=== PATIENT | male | born 1935 | race Caucasian/White ===

== ENCOUNTER 2019-09-11 19:45 | Inpatient (IN) ==
[2019-09-11 20:26] LABS: Basophils # (auto) 0.03 K/uL (0-0.2); Basophils % (auto) 0.1 %; Eosinophils # (auto) 0.14 K/uL (0-0.5); Eosinophils % (auto) 0.6 %; Hematocrit (blood only) 42.7 % (42-52); Hemoglobin 13.9 g/dL (14.0-18.0); Immature Granulocytes # (auto) 0.05 K/uL (0.00-0.02); Immature Granulocytes % (auto) 0.2 %; Lymphocytes # (auto) 2.16 K/uL (1.2-3.4); Lymphocytes % (auto) 9.7 %; Mean Corpuscular Hemoglobin 28.7 pg (25-34); Mean Corpuscular Hgb Conc 32.6 g/dL (32-36); Mean Corpuscular Volume 88.2 fL (80-100); Mean Platelet Volume 9.8 fL (7.4-10.4); Monocytes % (auto) 5.9 %; Neutrophils % (auto) 83.5 %; Platelet Count 239 K/uL (130-400); RDW Coefficient of Variation 14.5 % (11.5-14.5); RDW Standard Deviation 46.7 fL (36.4-46.3); Red Blood Count 4.84 M/uL (4.7-6.1); White Blood Count 22.18 K/uL (4.8-10.8)
[2019-09-11 20:43] LABS: Albumin Level 3.3 gm/dl (3.4-5.0); Calcium 8.8 mg/dl (8.5-10.1); Creatinine Clr Calc Pharmacy 55.6 ml/min; Est GFR (African American) 76.6; Est GFR (Non-African American) 66.1; Magnesium 1.9 mg/dl (1.8-2.4); Potassium 4.2 mmol/L (3.5-5.1)
[2019-09-11 20:44] LABS: iSTAT Hemoglobin 14.6 g/dl (14.0-18.0); iSTAT Ionized Calcium 1.16 mmol/l (1.12-1.32); iSTAT Potassium 4.2 mmol/L (3.3-5.0)
[2019-09-11 20:47] LABS: INR 1.2 (0.9-1.1); Partial Thromboplastin Ratio 1.2; Partial Thromboplastin Time 34.3 Seconds (21.0-31.0); Prothrombin Time 12.9 Seconds (9.0-12.0)
[2019-09-11] MEDS ORDERED: OPTIRAY 320 125ml IV PRN (20:51)
[2019-09-11 20:52] LABS: Bilirubin,Total 1.1 mg/dl (0.2-1); Globulin 3.2 gm/dl (2.5-4.0); Total Protein 6.5 gm/dl (6.4-8.2); Troponin I 0.068 ng/ml (0-0.045)
--- NOTE | 2019-09-11 20:54 | CT Scan Report ---
CT head/brain wo con CLINICAL HISTORY: 83 years-old Male with Stroke evaluation . Acute strokelike symptoms TECHNIQUE: Multiple axial CT images of the head were obtained without contrast. A dose lowering tech nique was utilized adhering to the principles of ALARA. CT DOSE: 1180.98 mGy.cm COMPARISON: CTA head neck of same day FINDINGS: No acute intracranial hemorrhage, midline shift, intracranial mass, hydrocephalus, territorial ischem ia or abnormal extra-axial collection. Age-related involutional changes with mild ex vacuo ventriculo megaly. Extensive white matter hypodensities suggest chronic microvascular ischemic disease. Hypodens ities of the left lentiform nucleus, thalamus and cerebral peduncle are suggestive of remote infarct. The calvarium is intact. Severe near complete opacification of the ethmoid sinuses. Trace mastoid ef fusions. Soft tissues are unremarkable. Prior bilateral cataract repair. IMPRESSION: 1. No acute intracranial hemorrhage or territorial infarct. 2. Age-related involutional changes with extensive chronic microvascular ischemic disease. 3. Hypodensities of the left lentiform nucleus, thalamus and cerebral peduncle are suggestive of soha te infarcts with wallerian degeneration. ACT 112: Negative or not required by law. The above report was generated using voice recognition software. It may contain grammatical, syntax o r spelling errors. Electronically signed by: Gera Naqvi M.D. 09/11/2019 8:53 PM
--- NOTE | 2019-09-11 21:09 | CT Scan Report ---
CT angio neck with con, CT angio head w con CLINICAL HISTORY: 83 years-old Male with Stroke evaluation. Acute strokelike symptoms COMPARISON STUDY: CT of the head of same day TECHNIQUE: Following the IV administration of 115 mL of Optiray 320, CT angiogram of the head and nec k was performed from the aortic arch to the skull apex. Images are reviewed in the axial, sagittal, a nd coronal planes. 3-D MIPS images are created and assessed. IV contrast was administered without com plication. All measurements were calculated based on NASCET criteria. A dose lowering technique was utilized adhering to the principles of ALARA. FINDINGS: Moderate mixed plaque of the thoracic aortic arch. Patency of the imaged bilateral subclavian arterie s. The study is mildly limited secondary to contrast bolus timing and also secondary to patient motio n. Moderate mixed plaque of the common carotid arteries without high-grade stenosis. Severe mixed melody que of the bilateral carotid bulbs and proximal internal carotid arteries results in less than 50% st enosis bilaterally. Calcified plaque of the cavernous and supraclinoid segments is also present witho ut high-grade stenosis. The petrous segments are not well opacified and are therefore difficult to ev aluate. The bilateral middle and anterior cerebral arteries appear patent with mostly mild multifocal luminal narrowing. The anterior cerebral arteries are also patent. Moderate luminal narrowing of the proximal right A1 segment. Dominant right vertebral artery. The left vertebral artery appears to terminate into the left PICA. V ertebral and basilar arteries are patent. Multifocal moderate grade luminal narrowing is noted throug hout the right posterior cerebral artery. Mild multifocal luminal narrowing of the left posterior cer ebral artery. Cerebral venous sinuses are patent. There is no aneurysm, dissection or proximal branch occlusion. No abnormal intracranial enhancement. Involutional changes with chronic microvascular isc hemic disease. Hypodensities of the left lentiform nucleus, thalamus and cerebral peduncle are sugges tive of remote infarct. Severe paranasal sinus disease. No pneumothorax. Soft tissues are unremarkable. Multilevel degenerati ve changes of the spine. IMPRESSION: 1. No aneurysm, dissection, high-grade stenosis or proximal branch occlusion. 2. Severe mixed plaque of the carotid bulbs and proximal internal carotid arteries results in less th an 50% stenosis bilaterally. 3. Multifocal mild and moderate luminal narrowing of the intracranial arteries as detailed above. ACT 112: Negative or not required by law. The above report was generated using voice recognition software. It may contain grammatical, syntax o r spelling errors. Electronically signed by: Gera Naqvi M.D. 09/11/2019 9:07 PM
[2019-09-11] MEDS ORDERED: PIPERACILLIN/TAZOBACTAM 4.5 GM/120 ML BAG IV ONE (21:29)
[2019-09-11] MEDS ORDERED: PIPERACILL/TAZOBAC CONSULT ACTIVE PRN (21:29)
--- NOTE | 2019-09-11 21:42 | XRay Report ---
XR chest 1V portable HISTORY: 83 years-old Male AMS acutely altered mental status COMPARISON: KUB 08/04/2019 TECHNIQUE: Portable AP view of the chest FINDINGS: Cardiomediastinal and hilar silhouettes are within normal limits. Ill-defined right infrahilar opacit ies. No pneumothorax, pleural effusion or overt pulmonary edema. Degenerative changes of the shoulders and spine. Left shoulder rotator cuff calcific tendinosis. IMPRESSION: Ill-defined right infrahilar opacities suggest atelectasis, pneumonia or aspiration pneum onitis. ACT 112: Negative or not required by law. The above report was generated using voice recognition software. It may contain grammatical, syntax o r spelling errors. Electronically signed by: Gera Naqvi M.D. 09/11/2019 9:40 PM
[2019-09-11 22:29] LABS: Appearance Urine Clear (Clear); Bacteria Urine Automated 2+ (Negative); Bilirubin Urine Negative (Negative); Blood Urine Negative (Negative); Color Urine Yellow; Epithelial Cell Urine Auto 0-5 /lpf (0-5); Glucose Urine UA Negative (Negative); Ketones Urine Negative (Negative); Leukocyte Esterase Urine 1+ (Negative); Nitrite Urine Negative (Negative); Protein Urine Negative (Negative); RBC Urine Automated 0-4 /hpf (0-4); Specific Gravity Urine 1.036 (1.000-1.030); Urobilinogen Urine Negative (Negative)
--- NOTE | 2019-09-11 23:07 | History & Physical Report ---
Date of Service September 11, 2019 Assessment & Plan (1) Sepsis: Secondary to complicated UTI History prostate surgery as per records Troponin elevation secondary to sepsis hx CVA hypertension, stable hyperlipidemia on statin Rx DM 2 insulin requiring, well-controlled as of recent hemoglobin A1c of 7.21 June 2019 ongoing NOAC use related to stroke (? PAF, embolic CVA) Medical telemetry Cultures, Cefepime Follow troponin, TTE if with progression Basal insulin, ISS BG goal [id number], carb count coverage DVT prophylaxis. Adelita (clarify indication with patient family) Full code Attempted to contact patient's daughter (Ms. Shala Calvo, [phone]) over the phone to obtain additional history and to update her of plan of care. No answer. Left message for call back. Text document was generated using [employer] voice recognition software. It may contain grammatical or spelling errors. Kindly contact undersigned for clarification of any documentation item in question. History of Present Illness Chief Complaint: Dizziness Primary Care Provider: Tamie Leung History obtained from patient and records. Medical history significant for CVA, hypertension, hyperlipidemia, DM 2 insulin requiring, ongoing NOAC use. Recent confinement March 2019 at [facility] in [place] for acute CVA. PEG tube placed during confinement due to aspiration risk following stroke. Patient discharged to [facility] for rehab on [facility] for stroke protection as per patient. Unaware of heartbeat issues. Patient able to tolerate pured diet the last 2 months. PEG tube not being used the last 2 months as per patient. Patient discharged home from [facility] last month. Today patient experienced dizziness described as lightheadedness. [place] like he was going to pass out. No chest pain, no S OB. No unusual cough/flulike symptoms. No abdominal pain/dysuria symptoms. At the ER, patient received Zosyn for sepsis. 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 Allergies Allergy/AdvReac Type Severity Reaction Status Date / Time No Known Allergies Allergy Verified 09/11/19 21:42 Home Medications Home Medications Medication Instructions Recorded Confirmed Type atorvastatin 10 mg tablet 0 mg PO QAM 05/30/19 09/11/19 History insulin aspart U-100 100 unit/mL See Rx Instructions .ROUTE .COMPLEX 05/30/19 09/11/19 History subcutaneous cartridge insulin glargine 100 unit/mL (3 25 units SQ DAILY 05/30/19 09/11/19 History mL) subcutaneous pen cholecalciferol (vitamin D3) 1,000 unit PO QPM 08/04/19 09/11/19 History [Vitamin D3] metoprolol tartrate 12.5 mg PO BID 08/04/19 09/11/19 History rivaroxaban 0 mg PO QPM 08/04/19 09/11/19 History docusate sodium [Colace] 100 mg PO DAILY 09/11/19 09/11/19 History senna 8.6 mg PO QAM 09/11/19 09/11/19 History Past Med/Surg History Surgical History History of gastric restrictive surgery History of prostate surgery Status post insertion of percutaneous endoscopic gastrostomy (PEG) tube Family History Other No family history of bleeding disorder Social History Preferred Language: Serbian Beliefs That Will Affect Care: None Current Living Situation: Alone Current Living Situation Comment: in an apartment current occupational status: retired Feels Safe at Home: Yes Safety Concerns: Feels Safe At This Time Smoking Status: Never smoker Hx Alcohol Use: No Hx Substance Use: No Review of Systems Review of Systems: As per HPI, all 10 systems reviewed, all other ROS negative Physical Exam Physical Exam: GENERAL: Slightly uncomfortable/impatient, dysarthric (chronic), hyponasal voice, no respiratory distress SKIN: Normal color, warm HEENT: [place] palpebral conjunctivae, no ptosis, dry buccal mucosa NECK : Supple, no tenderness CHEST : CTA, no tenderness HEART : RRR, no obvious murmurs ABDOMEN: Some distention, PEG tube in place with dried dark residue, nontender EXTREMITIES : No LE swelling/tenderness, no other conspicuous deformities noted NEUROLOGIC : Coherent, dysarthric (chronic), no facial asymmetry, gait and stance not assessed Results & Data Results & Data ([facility]) Vital Signs (Past 12 Hours) Vital Signs Temp Pulse Pulse Resp BP BP Pulse Ox 09/11/19 21:43 84 18 139/67 95 09/11/19 19:43 36.9 C 106 H 18 108/85 95 Laboratory Results Laboratory Results WBC 22.18 K/uL (4.8-10.8) H 09/11/19 20:16 RBC 4.84 M/uL (4.7-6.1) 09/11/19 20:16 Hgb 13.9 g/dL (14.0-18.0) L 09/11/19 20:16 POC Hgb 14.6 g/dl (14.0-18.0) 09/11/19 20:29 Hct 42.7 % (42-52) 09/11/19 20:16 POC Hct 43 % (42-52) 09/11/19 20:29 MCV 88.2 fL (80-100) 09/11/19 20:16 MCH 28.7 pg (25-34) 09/11/19 20:16 MCHC 32.6 g/dL (32-36) 09/11/19 20:16 RDW Std Deviation 46.7 fL (36.4-46.3) H 09/11/19 20:16 RDW Coeff of Mainor 14.5 % (11.5-14.5) 09/11/19 20:16 Plt Count 239 K/uL (130-400) 09/11/19 20:16 MPV 9.8 fL (7.4-10.4) 09/11/19 20:16 Immature Gran % (Auto) 0.2 % 09/11/19 20:16 Neut % (Auto) 83.5 % 09/11/19 20:16 Lymph % (Auto) 9.7 % 09/11/19 20:16 [place] % (Auto) 5.9 % 09/11/19 20:16 Eos % (Auto) 0.6 % 09/11/19 20:16 Baso % (Auto) 0.1 % 09/11/19 20:16 Immature Gran # (Auto) 0.05 K/uL (0.00-0.02) H 09/11/19 20:16 Neut # (Auto) 18.50 K/uL (1.4-6.5) H 09/11/19 20:16 Lymph # (Auto) 2.16 K/uL (1.2-3.4) 09/11/19 20:16 [place] # (Auto) 1.30 K/uL (0.11-0.59) H 09/11/19 20:16 Eos # (Auto) 0.14 K/uL (0-0.5) 09/11/19 20: Baso # (Auto) 0.03 K/uL (0-0.2) 09/11/19 20:16 PT 12.9 Seconds (9.0-12.0) H 09/11/19 20: INR 1.2 (0.9-1.1) H 09/11/19 20:16 APTT 34.3 Seconds (21.0-31.0) H 09/11/19 20: PTT Ratio 1.2 09/11/19 20: POC Sodium 143 mmol/L (135-144) 09/11/19 20: Sodium 142 mmol/L (136-145) 09/11/19 20: POC Potassium 4.2 mmol/L (3.3-5.0) 09/11/19 20: Potassium 4.2 mmol/L (3.5-5.1) 09/11/19 20:16 POC Chloride 102 mmol/L (101-112) 09/11/19 20: Chloride 108 mmol/L (98-107) H 09/11/19 20:16 Carbon Dioxide 31 mmol/L (21-32) 09/11/19 20: POC Total CO2 28 mEq/l (24-31) 09/11/19 20: Anion Gap 3.0 (3-11) 09/11/19 20: POC Anion Gap 18.0 mmol/L (16-25) 09/11/19 20:29 POC BUN 17 mg/dl (7-18) 09/11/19 20: BUN 17 mg/dl (7-18) 09/11/19 20: Creatinine 1.04 mg/dl (0.6-1.4) 09/11/19 20: POC Creatinine 1.0 mg/dl (0.6-1.3) 09/11/19 20: Est Cr Clr Drug Dosing 55.6 ml/min 09/11/19 20: Est GFR ( Amer) 76.6 09/11/19 20:16 Est GFR (Non-Af Amer) 66.1 09/11/19 20:16 BUN/Creatinine Ratio 16.0 (10-20) 09/11/19 20:16 Glucose 193 mg/dl (70-99) H 09/11/19 20:16 POC Glucose (other) 202 mg/dl (70-99) H 09/11/19 20:29 Lactate 1.6 mmol/L (0.4-2.0) 09/11/19 22:00 Calcium 8.8 mg/dl (8.5-10.1) 09/11/19 20:16 POC Ioniz Calcium Libby 1.16 mmol/l (1.12-1.32) 09/11/19 20:29 Magnesium 1.9 mg/dl (1.8-2.4) 09/11/19 20:16 Total Bilirubin 1.1 mg/dl (0.2-1) H 09/11/19 20:16 AST 8 U/L (15-37) L 09/11/19 20:16 ALT 16 U/L (12-78) 09/11/19 20:16 Alkaline Phosphatase 43 U/L (45-117) L 09/11/19 20:16 Troponin I 0.068 ng/ml (0-0.045) H* 09/11/19 20:16 Total Protein 6.5 gm/dl (6.4-8.2) 09/11/19 20:16 Albumin 3.3 gm/dl (3.4-5.0) L 09/11/19 20:16 Globulin 3.2 gm/dl (2.5-4.0) 09/11/19 20:16 Albumin/Globulin Ratio 1.0 (0.9-2) 09/11/19 20:16 Urine Color Yellow 09/11/19 22:15 Urine Appearance Clear (Clear) 09/11/19 22:15 Urine pH 7.0 (4.5-7.5) 09/11/19 22:15 Ur Specific [place] 1.036 (1.000-1.030) H 09/11/19 22:15 Urine Protein Negative (Negative) 09/11/19 22:15 Urine Glucose (UA) Negative (Negative) 09/11/19 22:15 Urine Ketones Negative (Negative) 09/11/19 22:15 Urine Blood Negative (Negative) 09/11/19 22:15 Urine Nitrite Negative (Negative) 09/11/19 22:15 Urine Bilirubin Negative (Negative) 09/11/19 22:15 Urine Urobilinogen Negative (Negative) 09/11/19 22:15 Ur Leukocyte Esterase 1+ (Negative) H 09/11/19 22:15 Urine WBC (Auto) 10-30 /hpf (0-5) H 09/11/19 22:15 Urine RBC (Auto) 0-4 /hpf (0-4) 09/11/19 22:15 U Hyaline Cast (Auto) 1-5 /lpf (0-5) 09/11/19 22:15 U Epithel Cells (Auto) 0-5 /lpf (0-5) 09/11/19 22:15 Urine Bacteria (Auto) 2+ (Negative) H 09/11/19 22:[address] head: 1. No acute intracranial hemorrhage or territorial infarct. 2. Age-related involutional changes with extensive chronic microvascular ischemic disease. 3. Hypodensities of the left lentiform nucleus, thalamus and cerebral peduncle are suggestive of remote infarcts with wallerian degeneration. CT angiogram head/neck: 1. No aneurysm, dissection, high-grade stenosis or proximal branch occlusion. 2. Severe mixed plaque of the carotid bulbs and proximal internal carotid arteries results in less than 50% stenosis bilaterally. 3. Multifocal mild and moderate luminal narrowing of the intracranial arteries as detailed above. Chest x-ray : Ill-defined right infrahilar opacities suggest atelectasis, pneumonia or aspiration pneumonitis. EKG as per my interpretation : Rate 105, sinus tachycardia, normal axis, 1 AVB, T wave flattening lateral leads
[2019-09-11 23:44] LABS: Thyroid Stimulating Hormone 0.894 uIu/ml (0.300-4.500)
--- NOTE | 2019-09-12 00:45 | Emergency Department Note ---
History of Present Illness General Chief complaint: Dizziness Source: patient, family and RN notes reviewed Mode of arrival: ambulatory Limitations: language barrier (slurred speech) History of Present Illness Provider complaint: Dizziness, slurred speech Onset (ago): hour(s) 3 This patient is an 83-year-old male with history of multiple strokes who presents to the emergency department with sudden onset of dizziness while attempting to walk to the bathroom today. Patient is currently having difficulty communicating but prior to my evaluation was able to speak with nursing staff. He stated this began several hours prior to arrival. Patient does live at home by himself however his daughter is close by. She brought him to the emergency department because of his complicated past medical history and fear of another stroke. Patient has apparently been in his usual state of health according to the daughter by phone. History is limited due to the patient's difficulty speaking Home Medications Home Medications Medication Instructions Recorded Confirmed Type atorvastatin 10 mg tablet 0 mg PO QAM 05/30/19 09/11/19 History insulin aspart U-100 100 unit/mL See Rx Instructions .ROUTE .COMPLEX 05/30/19 09/11/19 History subcutaneous cartridge insulin glargine 100 unit/mL (3 25 units SQ DAILY 05/30/19 09/11/19 History mL) subcutaneous pen cholecalciferol (vitamin D3) 1,000 unit PO QPM 08/04/19 09/11/19 History [Vitamin D3] metoprolol tartrate 12.5 mg PO BID 08/04/19 09/11/19 History rivaroxaban 0 mg PO QPM 08/04/19 09/11/19 History docusate sodium [Colace] 100 mg PO DAILY 09/11/19 09/11/19 History senna 8.6 mg PO QAM 09/11/19 09/11/19 History Allergies Allergy/AdvReac Type Severity Reaction Status Date / Time No Known Allergies Allergy Verified 09/11/19 21:42 Past Med/Surg History Medical History (Updated 09/12/19 @ 00:58 by Keira Melgar MD) Chronic pansinusitis Dysarthria Dysphagia as late effect of cerebrovascular accident (CVA) Nasal polyposis Surgical History History of gastric restrictive surgery History of prostate surgery Status post insertion of percutaneous endoscopic gastrostomy (PEG) tube Family History Other No family history of bleeding disorder Social History Preferred Language: Cameroonian Current Living Situation: [facility] current occupational status: retired Feels Safe at Home: Yes Smoking Status: Never smoker Hx Alcohol Use: No Hx Substance Use: No Review of Systems See HPI for pertinent positives & negatives. and A total of 10 systems reviewed and were otherwise negative Physical Exam Vital Signs Vital Signs - 24 hr 09/11/19 19:43 09/11/19 21:43 09/11/19 23:06 Temperature 36.9 C Temperature Source Oral Pulse Rate - Lying 76 Pulse Rate - Sitting 79 Pulse Rate - Standing 80 Pulse Rate 106 H Pulse Rate [Apical] 84 Respiratory Rate 18 18 Respiratory Effort / Characteristics Non-Labored Non-Labored Respiratory Depth Normal Normal Respiratory Pattern Regular Regular Blood Pressure - Lying 121/79 Blood Pressure - Sitting 100/58 L Blood Pressure- Standing 90/62 L Blood Pressure 108/85 Blood Pressure [Right Arm] 139/67 Blood Pressure Mean 92 Blood Pressure Mean [Right Arm] 91 Blood Pressure Position Lying Pulse Oximetry 95 95 Oxygen Delivery Method Room Air Room Air Sepsis Recent Fever Within 48 Hours No Sepsis New/Unexplained Change in Mental Status No Sepsis Action Taken by Nursing No Action Required 09/11/19 23:16 Temperature Temperature Source Pulse Rate - Lying Pulse Rate - Sitting Pulse Rate - Standing Pulse Rate Pulse Rate [Apical] 80 Respiratory Rate 18 Respiratory Effort / Characteristics Respiratory Depth Respiratory Pattern Blood Pressure - Lying Blood Pressure - Sitting Blood Pressure- Standing Blood Pressure Blood Pressure [Right Arm] Blood Pressure Mean Blood Pressure Mean [Right Arm] Blood Pressure Position Pulse Oximetry 98 Oxygen Delivery Method Sepsis Recent Fever Within 48 Hours Sepsis New/Unexplained Change in Mental Status Sepsis Action Taken by Nursing Vital signs reviewed. General: Chronically ill-appearing 83-year-old male, in no significant distress. HEENT: No scleral icterus, PERRLA, neck supple. Atraumatic. Cardiovascular: Tachycardic but regular, no extra sounds Pulmonary: Clear to auscultation bilaterally, normal work of breathing. Abdomen: Soft, nontender, nondistended, positive bowel sounds. Musculoskeletal: Atraumatic, no peripheral edema. Neurologic: Patient awake alert and attempts to answer most questions however significant dysarthria. Skin: Warm, dry, no rash Course Administered Medications Ioversol (Optiray 320 125ml) 115 ml IV ONCE PRN PRN Reason: Interaction Checking Stop: 09/15/19 20:50 Last Admin: 09/11/19 20:51 Dose: 115 ml Documented by: [id number] Discontinued Medications Piperacillin Sod/Tazobactam Sod (Zosyn) 4.5 gm in 120 mls @ 240 mls/hr IV NOW ONE Stop: 09/11/19 21:58 Last Infusion: 09/11/19 22:53 Dose: 0 mls/hr Documented by: [id number] Admin: 09/11/19 21:56 Dose: 240 mls/hr Documented by: [id number] Medical Decision Making Differential Diagnosis Differential includes acute coronary syndrome, myocardial infarction, CVA, TIA, anemia, infection, pneumonia, UTI, pyelonephritis, poor nutrition, dehydration, electrolyte disturbance,hypoglycemia. Home Medications Current Medication List: was personally reviewed by me Laboratory Data Attestation: I reviewed the patient's lab results. Result diagrams: 09/11/19 20:16 09/11/19 20:16 Lab Results 09/11/19 09/11/19 09/11/19 Range/Units 20:16 20:16 20:16 WBC 22.18 H (4.8-10.8) K/uL RBC 4.84 (4.7-6.1) M/uL Hgb 13.9 L (14.0-18.0) g/dL POC Hgb (14.0-18.0) g/dl Hct 42.7 (42-52) % POC Hct (42-52) % MCV 88.2 (80-100) fL MCH 28.7 (25-34) pg MCHC 32.6 (32-36) g/dL RDW Std Deviation 46.7 H (36.4-46.3) fL RDW Coeff of Mainor 14.5 (11.5-14.5) % Plt Count 239 (130-400) K/uL MPV 9.8 (7.4-10.4) fL Immature Gran % (Auto) 0.2 % Neut % (Auto) 83.5 % Lymph % (Auto) 9.7 % [place] % (Auto) 5.9 % Eos % (Auto) 0.6 % Baso % (Auto) 0.1 % Immature Gran # (Auto) 0.05 H (0.00-0.02) K/uL Neut # (Auto) 18.50 H (1.4-6.5) K/uL Lymph # (Auto) 2.16 (1.2-3.4) K/uL [place] # (Auto) 1.30 H (0.11-0.59) K/uL Eos # (Auto) 0.14 (0-0.5) K/uL Baso # (Auto) 0.03 (0-0.2) K/uL PT 12.9 H (9.0-12.0) Seconds INR 1.2 H (0.9-1.1) APTT 34.3 H (21.0-31.0) Seconds PTT Ratio 1.2 POC Sodium (135-144) mmol/L Sodium 142 (136-145) mmol/L POC Potassium (3.3-5.0) mmol/L Potassium 4.2 (3.5-5.1) mmol/L POC Chloride (101-112) mmol/L Chloride 108 H (98-107) mmol/L Carbon Dioxide 31 (21-32) mmol/L POC Total CO2 (24-31) mEq/l Anion Gap 3.0 (3-11) POC Anion Gap (16-25) mmol/L POC BUN (7-18) mg/dl BUN 17 (7-18) mg/dl Creatinine 1.04 (0.6-1.4) mg/dl POC Creatinine (0.6-1.3) mg/dl Est Cr Clr Drug Dosing 55.6 ml/min Est GFR ( Amer) 76.6 Est GFR (Non-Af Amer) 66.1 BUN/Creatinine Ratio 16.0 (10-20) Glucose 193 H (70-99) mg/dl POC Glucose (other) (70-99) mg/dl Lactate (0.4-2.0) mmol/L Calcium 8.8 (8.5-10.1) mg/dl POC Ioniz Calcium Libby (1.12-1.32) mmol/l Magnesium 1.9 (1.8-2.4) mg/dl Total Bilirubin 1.1 H (0.2-1) mg/dl AST 8 L (15-37) U/L ALT 16 (12-78) U/L Alkaline Phosphatase 43 L (45-117) U/L Troponin I 0.068 H* (0-0.045) ng/ml Total Protein 6.5 (6.4-8.2) gm/dl Albumin 3.3 L (3.4-5.0) gm/dl Globulin 3.2 (2.5-4.0) gm/dl Albumin/Globulin Ratio 1.0 (0.9-2) TSH 0.894 (0.300-4.500) uIu/ml Urine Color Urine Appearance (Clear) Urine pH (4.5-7.5) Ur Specific [place] (1.000-1.030) Urine Protein (Negative) Urine Glucose (UA) (Negative) Urine Ketones (Negative) Urine Blood (Negative) Urine Nitrite (Negative) Urine Bilirubin (Negative) Urine Urobilinogen (Negative) Ur Leukocyte Esterase (Negative) Urine WBC (Auto) (0-5) /hpf Urine RBC (Auto) (0-4) /hpf U Hyaline Cast (Auto) (0-5) /lpf U Epithel Cells (Auto) (0-5) /lpf Urine Bacteria (Auto) (Negative) 09/11/19 09/11/19 09/11/19 Range/Units 20:29 22:00 22:15 WBC (4.8-10.8) K/uL RBC (4.7-6.1) M/uL Hgb (14.0-18.0) g/dL POC Hgb 14.6 (14.0-18.0) g/dl Hct (42-52) % POC Hct 43 (42-52) % MCV (80-100) fL MCH (25-34) pg MCHC (32-36) g/dL RDW Std Deviation (36.4-46.3) fL RDW Coeff of Mainor (11.5-14.5) % Plt Count (130-400) K/uL MPV (7.4-10.4) fL Immature Gran % (Auto) % Neut % (Auto) % Lymph % (Auto) % [place] % (Auto) % Eos % (Auto) % Baso % (Auto) % Immature Gran # (Auto) (0.00-0.02) K/uL Neut # (Auto) (1.4-6.5) K/uL Lymph # (Auto) (1.2-3.4) K/uL [place] # (Auto) (0.11-0.59) K/uL Eos # (Auto) (0-0.5) K/uL Baso # (Auto) (0-0.2) K/uL PT (9.0-12.0) Seconds INR (0.9-1.1) APTT (21.0-31.0) Seconds PTT Ratio POC Sodium 143 (135-144) mmol/L Sodium (136-145) mmol/L POC Potassium 4.2 (3.3-5.0) mmol/L Potassium (3.5-5.1) mmol/L POC Chloride 102 (101-112) mmol/L Chloride (98-107) mmol/L Carbon Dioxide (21-32) mmol/L POC Total CO2 28 (24-31) mEq/l Anion Gap (3-11) POC Anion Gap 18.0 (16-25) mmol/L POC BUN 17 (7-18) mg/dl BUN (7-18) mg/dl Creatinine (0.6-1.4) mg/dl POC Creatinine 1.0 (0.6-1.3) mg/dl Est Cr Clr Drug Dosing ml/min Est GFR ( Amer) Est GFR (Non-Af Amer) BUN/Creatinine Ratio (10-20) Glucose (70-99) mg/dl POC Glucose (other) 202 H (70-99) mg/dl Lactate 1.6 (0.4-2.0) mmol/L Calcium (8.5-10.1) mg/dl POC Ioniz Calcium Libby 1.16 (1.12-1.32) mmol/l Magnesium (1.8-2.4) mg/dl Total Bilirubin (0.2-1) mg/dl AST (15-37) U/L ALT (12-78) U/L Alkaline Phosphatase (45-117) U/L Troponin I (0-0.045) ng/ml Total Protein (6.4-8.2) gm/dl Albumin (3.4-5.0) gm/dl Globulin (2.5-4.0) gm/dl Albumin/Globulin Ratio (0.9-2) TSH (0.300-4.500) uIu/ml Urine Color Yellow Urine Appearance Clear (Clear) Urine pH 7.0 (4.5-7.5) Ur Specific [place] 1.036 H (1.000-1.030) Urine Protein Negative (Negative) Urine Glucose (UA) Negative (Negative) Urine Ketones Negative (Negative) Urine Blood Negative (Negative) Urine Nitrite Negative (Negative) Urine Bilirubin Negative (Negative) Urine Urobilinogen Negative (Negative) Ur Leukocyte Esterase 1+ H (Negative) Urine WBC (Auto) 10-30 H (0-5) /hpf Urine RBC (Auto) 0-4 (0-4) /hpf U Hyaline Cast (Auto) 1-5 (0-5) /lpf U Epithel Cells (Auto) 0-5 (0-5) /lpf Urine Bacteria (Auto) 2+ H (Negative) Imaging Data Attestation: I personally reviewed and interpreted this imaging study as follows: Radiologist's Impression: XR chest 1V portable HISTORY: 83 years-old Male AMS acutely altered mental status COMPARISON: [facility] 08/04/2019 TECHNIQUE: Portable AP view of the chest FINDINGS: Cardiomediastinal and hilar silhouettes are within normal limits. Ill-defined right infrahilar opacities. No pneumothorax, pleural effusion or overt pulmonary edema. Degenerative changes of the shoulders and spine. Left shoulder rotator cuff calcific tendinosis. IMPRESSION: Ill-defined right infrahilar opacities suggest atelectasis, pneumonia or aspiration pneumonitis. ACT 112: Negative or not required by law. The above report was generated using voice recognition software. It may contain grammatical, syntax or spelling errors. Electronically signed by: Gera Naqvi M.D. 09/11/2019 9:40 PM Dictated: 09/11/192135 Transcribed: 09/11/192135 CT head/brain wo con CLINICAL HISTORY: 83 years-old Male with Stroke evaluation . Acute strokelike symptoms TECHNIQUE: Multiple axial CT images of the head were obtained without contrast. A dose lowering technique was utilized adhering to the principles of ALARA. CT DOSE: 1180.98 mGy.cm COMPARISON: CTA head neck of same day FINDINGS: No acute intracranial hemorrhage, midline shift, intracranial mass, hydrocephalus, territorial ischemia or abnormal extra-axial collection. Age- related involutional changes with mild ex vacuo ventriculomegaly. Extensive white matter hypodensities suggest chronic microvascular ischemic disease. Hypodensities of the left lentiform nucleus, thalamus and cerebral peduncle are suggestive of remote infarct. The calvarium is intact. Severe near complete opacification of the ethmoid sinuses. Trace mastoid effusions. Soft tissues are unremarkable. Prior bilateral cataract repair. IMPRESSION: 1. No acute intracranial hemorrhage or territorial infarct. 2. Age-related involutional changes with extensive chronic microvascular ischemic disease. 3. Hypodensities of the left lentiform nucleus, thalamus and cerebral peduncle are suggestive of remote infarcts with wallerian degeneration. ACT 112: Negative or not required by law. The above report was generated using voice recognition software. It may contain grammatical, syntax or spelling errors. CT angio neck with con, CT angio head w con CLINICAL HISTORY: 83 years-old Male with Stroke evaluation. Acute strokelike symptoms COMPARISON STUDY: CT of the head of same day TECHNIQUE: Following the IV administration of 115 mL of Optiray 320, CT angiogram of the head and neck was performed from the aortic arch to the skull apex. Images are reviewed in the axial, sagittal, and coronal planes. 3-D MIPS images are created and assessed. IV contrast was administered without complication. All measurements were calculated based on NASCET criteria. A dose lowering technique was utilized adhering to the principles of ALARA. FINDINGS: Moderate mixed plaque of the thoracic aortic arch. Patency of the imaged bilateral subclavian arteries. The study is mildly limited secondary to contrast bolus timing and also secondary to patient motion. Moderate mixed plaque of the common carotid arteries without high-grade stenosis. Severe mixed plaque of the bilateral carotid bulbs and proximal internal carotid arteries results in less than 50% stenosis bilaterally. Calcified plaque of the cavernous and supraclinoid segments is also present without high-grade stenosis. The petrous segments are not well opacified and are therefore difficult to evaluate. The bilateral middle and anterior cerebral arteries appear patent with mostly mild multifocal luminal narrowing. The anterior cerebral arteries are also patent. Moderate luminal narrowing of the proximal right A1 segment. Dominant right vertebral artery. The left vertebral artery appears to terminate into the left PICA. Vertebral and basilar arteries are patent. Multifocal moderate grade luminal narrowing is noted throughout the right posterior cerebral artery. Mild multifocal luminal narrowing of the left posterior cerebral artery. Cerebral venous sinuses are patent. There is no aneurysm, dissection or proximal branch occlusion. No abnormal intracranial enhancement. Involutional changes with chronic microvascular ischemic disease. Hypodensities of the left lentiform nucleus, thalamus and cerebral peduncle are suggestive of remote infarct. Severe paranasal sinus disease. No pneumothorax. Soft tissues are unremarkable. Multilevel degenerative changes of the spine. IMPRESSION: 1. No aneurysm, dissection, high-grade stenosis or proximal branch occlusion. 2. Severe mixed plaque of the carotid bulbs and proximal internal carotid arteries results in less than 50% stenosis bilaterally. 3. Multifocal mild and moderate luminal narrowing of the intracranial arteries as detailed above. ACT 112: Negative or not required by law. The above report was generated using voice recognition software. It may contain grammatical, syntax or spelling errors. Electronically signed by: Gera Naqvi M.D. 09/11/2019 9:07 PM Dictated: 09/11/192057 Transcribed: 09/11/192057 ECG Data Attestation: I personally reviewed and interpreted this ECG as follows: Indication: + altered mental status Rate (beats per minute): 107 Rhythm: + sinus tachycardia ECG Intervals/blocks: + Normal QT-c ECG [place]: + Normal ECG ST segments: + Nonspecific ST abnormalities ECG Findings: no PACs and no PVCs Blood Pressure Blood Pressure Findings: Normal blood pressure Blood Pressure Disposition: did not require urgent referral MDM Narrative An order for cardiac monitoring was placed and the patient is found to be in a sinus rhythm at 80 bpm. This patient was evaluated and appeared to be in no significant distress. IV access was obtained and laboratory work was drawn. Patient was hydrated with normal saline solution. CT imaging of the brain, CT angios of the head and neck was performed and reveals chronic changes but no evidence of acute pathology. Patient's laboratory work reveals a WBC of 22, troponin that is slightly elevated at 0.068. Patient's UA is positive. Chest x-ray is concerning for a right basilar infiltrate. There is very little history on the patient in our system as he recently moved from out of town. Patient seemed to respond to IV hydration, IV Zosyn. His speech became much more clear and clinically appeared to be improved. Patient's EKG reveals no evidence of acute ischemia. I did speak with the patient's daughter by phone who reiterated he is on a pured diet. Likelihood of aspiration is significant. Patient was discussed with the hospitalist service who will evaluate the patient for further management. Patient and daughter were made aware of the plan and agree. Impression & Plan Symptoms of cerebrovascular accident, Dizziness, UTI (urinary tract infection), Pneumonia Discharge Plan Visit Data Chief Complaint: Dizziness ED Provider: Keira Melgar Discharge Problem: Symptoms of cerebrovascular accident, Dizziness, UTI (urinary tract infection), Pneumonia Forms Stand Alone Forms: [employer] Prescriptions Prescriptions: No Action Lantus Solostar U-100 Insulin 100 unit/mL (3 mL) insulin pen 25 units SQ DAILY RF: 0 atorvastatin [Lipitor] 10 mg tablet 0 mg PO QAM RF: 0 insulin aspart U-100 [Novolog PenFill U-100 Insulin] 100 unit/mL cartridge See Rx Instructions .ROUTE .COMPLEX RF: 0 docusate sodium [Colace] 100 mg Capsule 100 mg PO DAILY RF: 0 senna 8.6 mg Capsule 8.6 mg PO QAM RF: 0 metoprolol tartrate 25 mg Tablet 12.5 mg PO BID RF: 0 cholecalciferol (vitamin D3) [Vitamin D3] 25 mcg (1,000 unit) Tablet 1,000 unit PO QPM RF: 0 rivaroxaban 2.5 mg Tablet 0 mg PO QPM RF: 0 Discharge Problem: UTI (urinary tract infection) Qualifiers: Urinary tract infection type: acute cystitis Hematuria presence: without hematuria Qualified Code(s): N30.00 - Acute cystitis without hematuria Pneumonia Qualifiers: Pneumonia type: due to unspecified organism Laterality: right Lung location: lower lobe of lung Qualified Code(s): J18.9 - Pneumonia, unspecified organism
[2019-09-12] MEDS ORDERED: GLUCOSE 10 TABS/TUBE PO PRN (02:28)
[2019-09-12] MEDS ORDERED: TRAMADOL HCL 50 MG TABLET PO PRN (02:28)
[2019-09-12] MEDS ORDERED: GLUCAGON FOR INJ 1 MG VIAL SQ PRN (02:28)
[2019-09-12] MEDS ORDERED: ACETAMINOPHEN 325 MG TAB PO PRN (02:28)
[2019-09-12] MEDS ORDERED: PROMETHAZINE HCL 12.5 MG in SODIUM CHLORIDE 0.9% 50 ML IV PRN (02:28)
[2019-09-12] MEDS ORDERED: CARBOHYDRATES FOR HYPOGLYCEMIA PO PRN (02:28)
[2019-09-12] MEDS ORDERED: SODIUM CHLORIDE 0.45 % 1,000 ML IV ONE (02:28)
[2019-09-12] MEDS ORDERED: DEXTROSE 50% 50 ML SYRINGE IV PRN (02:28)
[2019-09-12] MEDS ORDERED: GLUCOSE 40% GEL 15 GM TUBE PO PRN (02:28)
[2019-09-12] MEDS ORDERED: INSULIN GLARGINE SOLOSTAR 100 UNITS/ML 3 ML PEN SC STA (02:44)
[2019-09-12] MEDS ORDERED: MAGNESIUM SULFATE / D5W 1 GM/100 ML BAG IV ONE (02:45)
[2019-09-12] MEDS: INSULIN ASPART 100 UNITS/ML 3 ML PEN SC SCH ×5 (03:27→21:35)
[2019-09-12] MEDS ORDERED: CEFEPIME CONSULT ACTIVE PRN (04:49)
[2019-09-12 05:45] LABS: Basophils # (auto) 0.03 K/uL (0-0.2); Basophils % (auto) 0.2 %; Eosinophils % (auto) 2.3 %; Hematocrit (blood only) 39.6 % (42-52); Hemoglobin 12.6 g/dL (14.0-18.0); Immature Granulocytes # (auto) 0.06 K/uL (0.00-0.02); Immature Granulocytes % (auto) 0.4 %; Lymphocytes # (auto) 3.73 K/uL (1.2-3.4); Lymphocytes % (auto) 21.9 %; Mean Corpuscular Hemoglobin 28.3 pg (25-34); Mean Corpuscular Hgb Conc 31.8 g/dL (32-36); Monocytes # (auto) 1.29 K/uL (0.11-0.59); Monocytes % (auto) 7.6 %; Neutrophils # (auto) 11.52 K/uL (1.4-6.5); Neutrophils % (auto) 67.6 %; Platelet Count 233 K/uL (130-400); RDW Coefficient of Variation 14.6 % (11.5-14.5); RDW Standard Deviation 47.8 fL (36.4-46.3); Red Blood Count 4.45 M/uL (4.7-6.1); White Blood Count 17.03 K/uL (4.8-10.8)
[2019-09-12] MEDS: CEFEPIME 2,000 MG in SYRINGE 7.5 ML IV SCH (05:57)
[2019-09-12 06:16] LABS: BUN Creatinine Ratio 13.8 (10-20); Calcium 8.5 mg/dl (8.5-10.1); Est GFR (African American) 82.3; Potassium 3.8 mmol/L (3.5-5.1)
[2019-09-12] MEDS: METOPROLOL TARTRATE 25 MG TAB PO SCH ×2 (09:12→21:31)
[2019-09-12] MEDS: SENNA 8.6 MG TAB PO SCH (09:14)
[2019-09-12] MEDS: DOCUSATE SODIUM 100 MG CAP PO SCH (09:15)
[2019-09-12] MEDS: ATORVASTATIN 10 MG TAB PO SCH (09:15)
[2019-09-12] MEDS: INSULIN GLARGINE SOLOSTAR 100 UNITS/ML 3 ML PEN SQ SCH (10:09)
--- NOTE | 2019-09-12 12:55 | Cardiology Consultation ---
Date of Consultation September 12, 2019 Assessment & Plan (1) Dizziness: (2) First degree AV block: (3) Troponin I above reference range: Patient presents with symptoms of dizziness, possible infectious process going on either UTI versus pneumonia based on urinalysis and chest x-ray. Telemetry reveals sinus bradycardia, EKG tracings reveal long first-degree AV block but no bradycardia. Given the long first-degree AV block, and his presenting symptoms of dizziness, symptomatic bradycardia certainly a consideration. We do not know much about his history, but note that he has had a stroke in the past, and is on Xarelto. He is also on metoprolol. I am going to hold off on stopping the metoprolol, as he could very well have a history of paroxysmal atrial fibrillation. There is only one contact listed in his chart, his daughter, Shala Calvo, phone [phone], I attempted to reach her by phone to see if she had more details regarding his heart history, but was unable to connect with her, I left a voicemail. At present, I recommend ongoing antibiotic therapy, and observation on telemetry. I do not think his presentation is suggestive of an acute coronary syndrome, and perhaps the mild troponin elevation is related to infection. Will likely need further assessment, perhaps with a ZIO AT continuous bus monitor as an outpatient if there are no diagnostic telemetry findings to provide an answer regarding the bradycardia question. History of Present Illness Attending Physician: Dennise Bowen MD History of Present Illness Mr Adams is an 83 year old male seen in cardiology consultation per the request of Dr Bowen for the evaluation to troponin elevation. Patient tells me that he does not have any past cardiac history. He apparently recently relocated to the area having previously lived in [place] and was hospitalized there for stroke in 2019. He is on Xarelto, the indication for which is not well-defined at present. He has a PEG tube in place, due to apparent difficulty swallowing after his stroke, but he states that this has improved, and he anticipates having the PEG tube removed in the near future. He describes presenting to the hospital overnight for dizziness. He felt like he was going to pass out but did not pass out. He has been treated for a urinary tract infection, with bacteria noted on his urinalysis, culture currently pending. EKG performed 09/11/2019 revealed sinus tachycardia 107 bpm, first-degree AV block, TN interval 296 ms, mild nonspecific T wave abnormality. Repeat EKG this morning at 950 revealed sinus rhythm at 67 bpm, ongoing long first-degree AV block, TN interval 282 ms, noted findings of possible age- indeterminate inferior infarction with Q waves in leads III and aVF. Telemetry reveals sinus bradycardia in the mid 50 bpm range with no pauses or prolonged bradycardia otherwise. Patient has been found to have a mild troponin elevation of 0.068, 0.304, and 0.5153 measurements. Echocardiogram performed this morning reviewed in file revealed mild concentric left ventricular hypertrophy, normal LV wall motion, LVEF of 55 to 60%, grade 1 diastolic dysfunction. Allergies Allergy/AdvReac Type Severity Reaction Status Date / Time No Known Allergies Allergy Verified 09/11/19 21:42 Home Medications Home Medications Medication Instructions Recorded Confirmed Type atorvastatin 10 mg tablet 0 mg PO QAM 05/30/19 09/11/19 History insulin aspart U-100 100 unit/mL See Rx Instructions .ROUTE .COMPLEX 05/30/19 09/11/19 History subcutaneous cartridge insulin glargine 100 unit/mL (3 25 units SQ DAILY 05/30/19 09/11/19 History mL) subcutaneous pen cholecalciferol (vitamin D3) 1,000 unit PO QPM 08/04/19 09/11/19 History [Vitamin D3] metoprolol tartrate 12.5 mg PO BID 08/04/19 09/11/19 History rivaroxaban 0 mg PO QPM 08/04/19 09/11/19 History docusate sodium [Colace] 100 mg PO DAILY 09/11/19 09/11/19 History senna 8.6 mg PO QAM 09/11/19 09/11/19 History Patient History Medical History Chronic pansinusitis Dysarthria Dysphagia as late effect of cerebrovascular accident (CVA) Nasal polyposis Surgical History History of gastric restrictive surgery History of prostate surgery Status post insertion of percutaneous endoscopic gastrostomy (PEG) tube Family History Other No family history of bleeding disorder Social History Preferred Language: Greek Communication Ability: Effective Beliefs That Will Affect Care: None Current Living Situation: Alone Current Living Situation Comment: in an apartment current occupational status: retired Feels Safe at Home: Yes Safety Concerns: Feels Safe At This Time Smoking Status: Never smoker Hx Alcohol Use: No Hx Substance Use: No Review of Systems Review of Systems: All systems reviewed & are unremarkable except as noted in HPI & below Physical Exam Physical Exam: Temp Pulse Resp BP Pulse Ox 36.7 C 62 18 135/78 96 09/12/19 10:58 09/12/19 10:58 09/12/19 10:58 09/12/19 10:58 09/12/19 10:58 Constitutional: WD/WN, vitals as above Respiratory: normal respiratory effort, lungs clear to auscultation Cardiovascular: RRR, no murmur, no edema Gastrointestinal (Abdomen): Longitudinal abdominal incision noted, PEG tube in place Neurologic: PERRL, EOMI, accommodation nl, no face palsy, no dysarthria Results & Data ([facility]) Vital Signs (Past 12 Hours) Vital Signs Temp Pulse Pulse Resp BP BP Pulse Ox 09/12/19 10:58 36.7 C 62 18 135/78 96 09/12/19 07:30 36.4 C L 66 20 136/78 98 09/12/19 02:58 62 09/12/19 02:41 36.3 C L 67 18 116/75 96 09/12/19 01:59 76 18 105/75 98 Laboratory Results Cardiac Enzymes 09/11/19 09/12/19 09/12/19 Range/Units 20:16 02:49 08:02 AST 8 L (15-37) U/L Troponin I 0.068 H* 0.304 H* 0.515 H* (0-0.045) ng/ml Coagulation 09/11/19 Range/Units 20:16 PT 12.9 H (9.0-12.0) Seconds APTT 34.3 H (21.0-31.0) Seconds CBC 09/11/19 09/12/19 Range/Units 20:16 05:24 WBC 22.18 H 17.03 H (4.8-10.8) K/uL RBC 4.84 4.45 L (4.7-6.1) M/uL Hgb 13.9 L 12.6 L (14.0-18.0) g/dL Hct 42.7 39.6 L (42-52) % Plt Count 239 233 (130-400) K/uL Neut # (Auto) 18.50 H 11.52 H (1.4-6.5) K/uL Lymph # (Auto) 2.16 3.73 H (1.2-3.4) K/uL [place] # (Auto) 1.30 H 1.29 H (0.11-0.59) K/uL Eos # (Auto) 0.14 0.40 (0-0.5) K/uL Baso # (Auto) 0.03 0.03 (0-0.2) K/uL Comprehensive Metabolic Panel 09/11/19 09/12/19 Range/Units 20:16 05:24 Sodium 142 143 (136-145) mmol/L Potassium 4.2 3.8 (3.5-5.1) mmol/L Chloride 108 H 110 H (98-107) mmol/L Carbon Dioxide 31 31 (21-32) mmol/L BUN 17 13 (7-18) mg/dl Creatinine 1.04 0.98 (0.6-1.4) mg/dl Glucose 193 H 127 H (70-99) mg/dl Calcium 8.8 8.5 (8.5-10.1) mg/dl AST 8 L (15-37) U/L ALT 16 (12-78) U/L Alkaline Phosphatase 43 L (45-117) U/L Total Protein 6.5 (6.4-8.2) gm/dl Albumin 3.3 L (3.4-5.0) gm/dl Intake and Output 09/11/19 09/12/19 09/12/19 22:59 06:59 14:59 Intake Total 120 / 220 100 / 220 Balance 120 / 220 100 / 220 Intake: IV 120 / 220 100 / 220 MAGNESIUM SULFATE / D5W 1 gm In 100 / 100 100 ml @ 100 mls/hr IV ONE ONE Rx#:[id number] ZOSYN 4.5 gm In 120 ml @ 240 120 / 120 mls/hr IV NOW ONE Rx#:[id number] Other: Other Intake Source sips Weight 77.2 kg 73.028 kg
--- NOTE | 2019-09-12 14:30 | Hospitalist Progress Note ---
Date of Service September 12, 2019 Assessment & Plan (1) Sepsis: Present on admission with tachycardia and elevated WBC UA on admission positive with leukocytes and bacteria WBC on admission 20K, now trending down to 17K Received IV Zosyn in the ER On IV cefepime daily Blood cx and urine cx pending Continue monitor Dizziness Possible related to bradycardia due to 1st degree AV block vs sepsis CT head negative for acute intracranial abnormality PT/OT evel Fall precaution Resolved Bradycardia EKG showed first degree AV block Not sure if pt has any underline of Afib since pt is on metoprolol and does not want to hold it [facility] [place] and waiting for call back from pcp to check if pt has history of Afib If there is no history of Afib, will hold the metoprolol Might consider ZIO AT continuous quality assurance monitor chassis as an outpatient if there are no diagnostic telemetry findings to provide an answer regarding the bradycardia question. Continue monitor in tele Elevated troponin Mostly related to sepsis Troponin on admission 0.068, then peak to 0.515, now trending down to 0.481 EKG showed first degree AV block with no ischemic changes cardiology on board ECHO showed no wall motion abnormality with EF 55 to 60 % Continue statin Continue xarelto Hx CVA CTA head showed no acute intracranial hemorrhage or territorial infarct. CTA head/Neck showed no aneurysm, dissection, high-grade stenosis or proximal branch occlusion. Severe mixed plaque of the carotid bulbs and proximal internal carotid arteries results in less than 50% stenosis bilaterally. Continue Xarelto and statin Stable Hypertension Continue Metoprolol BP stable Diabetes type 2 Hemoglobin A1c of 7.1 on June 2019 On lantus and novolog sliding scale Continue monitor BS DVT prophylaxis on Xarelto CODE STATUS Full code Disposition Daughter (Ms. Shala Calvo, [phone]) [facility] (unfortunately they are close on weekend and they close at 4PM today) Admission and Anticipated Discharge Date Admission Date: September 11, 2019 Subjective Pt was seen and examined Lying in bed with no distress Pt said that he feels fine He said that he does not have any dizziness Pt does not want to stay in the hospital for tonight He said that he feels ok and wants to be discharged Denies any chest pain, palpitation, dizziness and SOB Physical Exam Physical Exam: General- No acute distress Head- atraumatic Eyes- PERRL, EOMI, ENT- oropharynx clear Neck- supple, no JVD Lungs- clear to auscultation Heart- No murmur Abdomen- normal bowel sounds, soft, nontender, peg tube in place Extremities- no calf tenderness Neuro- alert, oriented x 3; PERRL, EOMI; no facial palsy; no dysarthria Skin- warm & dry Results & Data Results & Data ([facility]) Vital Signs (Past 12 Hours) Vital Signs Temp Pulse Pulse Resp BP Pulse Ox 09/12/19 10:58 36.7 C 62 18 135/78 96 09/12/19 07:30 36.4 C L 66 20 136/78 98 09/12/19 02:58 62 09/12/19 02:41 36.3 C L 67 18 116/75 96
--- NOTE | 2019-09-12 14:57 | Communication Note ---
Date of Service: September 12, 2019 I spoke to his daughter, Shala on the phone. She describes that the patient had previously been cared for by the [facility] in [place]. He had been hospitalized in [place] on 2 separate occasions for stroke episodes in 2019 the most recent of which was in January 2019 in [place]. He subsequently relocated here to [facility] for rehab. He then established with Марина Leung PA-C as his new primary care provider at the [facility] in [facility]. Per the daughter's description, the patient had previously been on Eliquis, and the local ID clinic transitioned him to Xarelto Shala is unaware of the patient having a past history of "atrial fibrillation". I attempted to look the patient up in the [facility] system, he is not in the system. I am going to have our office start an account for him so that we can look ahead and schedule follow-up. Case discussed with Dr Brewster, he is going to attempt to contact ID for records, historical problem list to see what the diagnosis is that is associated with the Xarelto.
--- NOTE | 2019-09-12 15:19 | Electrocardiogram Report ---
Test Reason : Blood Pressure : / mmHG Vent. Rate : 107 BPM Atrial Rate : 107 BPM P-R Int : 296 ms QRS Dur : 074 ms QT Int : 310 ms P-R-T Axes : 080 051 071 degrees QTc Int : 413 ms Sinus tachycardia with 1st degree A-V block Nonspecific ST abnormality Abnormal ECG No previous ECGs available Confirmed by Jossue Parks ([id number]) on 09/12/2019 3:19:19 PM Referred By: REFERRED SELF Confirmed By:Reji Parks
--- NOTE | 2019-09-12 15:28 | Electrocardiogram Report ---
Test Reason : Blood Pressure : / mmHG Vent. Rate : 067 BPM Atrial Rate : 067 BPM P-R Int : 282 ms QRS Dur : 086 ms QT Int : 432 ms P-R-T Axes : 075 -02 070 degrees QTc Int : 456 ms Sinus rhythm with 1st degree A-V block Inferior infarct , age undetermined Abnormal ECG When compared with ECG of 11-SEP-2019 19:54, (unconfirmed) Vent. rate has decreased BY 40 BPM Inferior infarct is now Present Confirmed by Jossue Parks ([id number]) on 09/12/2019 3:27:44 PM Referred By: REFERRED SELF Confirmed By:Reji Parks
[2019-09-12] MEDS: RIVAROXABAN 20 MG TAB PO SCH (17:24)
--- NOTE | 2019-09-12 20:20 | XCELERA ---
[id number]
[2019-09-13] MEDS: CEFEPIME 2,000 MG in SYRINGE 7.5 ML IV SCH ×2 (06:41→19:46)
[2019-09-13] MEDS: METOPROLOL TARTRATE 25 MG TAB PO SCH ×2 (08:43→19:47)
[2019-09-13] MEDS: ATORVASTATIN 10 MG TAB PO SCH (08:44)
[2019-09-13] MEDS: DOCUSATE SODIUM 100 MG CAP PO SCH (08:44)
[2019-09-13] MEDS: SENNA 8.6 MG TAB PO SCH (08:44)
[2019-09-13] MEDS: INSULIN GLARGINE SOLOSTAR 100 UNITS/ML 3 ML PEN SQ SCH (08:51)
[2019-09-13] MEDS: INSULIN ASPART 100 UNITS/ML 3 ML PEN SC SCH ×4 (08:58→22:23)
--- NOTE | 2019-09-13 12:38 | Cardiology Progress Note ---
Date of Service September 13, 2019 Assessment & Plan (1) Dizziness: (2) Troponin I above reference range: (3) First degree AV block: (4) UTI (urinary tract infection): Continue current cardiovascular medications including Xarelto, atorvastatin, and beta-nan therapy. Recommend 14-day ZIO monitor in the outpatient setting for further evaluation of dizziness. Continue antibiotic therapy per direction of internal medicine. Consider outpatient stress testing for further risk stratification. Thank you for allowing me to participate in the care of your patient. Cardiology will sign off. Subjective Patient seen and examined the bedside. Feeling well from a cardiovascular perspective today. Diagnosed with urinary tract infection and appropriately treated with antibiotics. He presented to the hospital with an episode of dizziness and near syncope. His troponins were found to be mildly elevated above reference range without anginal symptoms. His ECG without ischemic changes. 2D transthoracic echocardiogram demonstrates normal wall motion. Currently patient is resting comfortably. No significant bradycardia, pauses, heart block, or atrial fibrillation per review of telemetry. No fever or chills overnight. Patient denies frequency, urgency, dysuria, or hematuria. Metoprolol continued since admission due to history of paroxysmal atrial fibrillation. Patient is chronically anticoagulated with Xarelto. He recently relocated from the [facility] with history of cerebrovascular accident. Review of Systems Review of Systems: All systems reviewed & are unremarkable except as noted in HPI & below Physical Exam Constitutional: well developed and well nourished; no acute distress and not ill appearing Respiratory: normal respiratory effort; no respiratory distress, no labored breathing and no retractions Auscultation: no crackles, no rales, no rhonchi and no wheezes Cardiovascular: Rate/Rhythm: regular rate and regular rhythm Heart Sounds: normal S1, normal S2 and + murmur (1/6 systolic ejection murmur heard best at the right second intercostal space.) Vessels: no JVD and no carotid bruit Extremities: no edema Gastrointestinal (Abdomen): Inspection/Auscultation: abdomen normal to inspection and normal bowel sounds; abdomen not distended Percussion/Palpation: abdomen soft; abdomen nontender, no guarding and abdomen not rigid Skin: no rashes, warm and dry Neurologic: moves all extremities Speech / Cognition: + abnormal speech Psychiatric: A+Ox3, euthymic affect Results & Data Vital Signs (Past 12 Hours) Vital Signs Temp Pulse Pulse Resp BP BP Pulse Ox 09/13/19 11:00 36.3 C L 57 L 18 150/73 H 98 09/13/19 09:55 62 09/13/19 07:11 36.3 C L 60 18 163/76 H 98 09/13/19 04:50 36.6 C 57 L 20 142/82 H 156/85 H 97 (1) UTI (urinary tract infection) Hematuria presence: without hematuria Urinary tract infection type: acute cystitis Qualified Code(s): N30.00 - Acute cystitis without hematuria
--- NOTE | 2019-09-13 16:11 | Hospitalist Progress Note ---
Date of Service September 13, 2019 Assessment & Plan (1) Sepsis: Present on admission with tachycardia and elevated WBC UA on admission positive with leukocytes and bacteria WBC on admission 20K, now trending down to 17K Received IV Zosyn in the ER On IV cefepime daily Blood cx no growth Urine cx grew gram negative bacilli Waiting for sensitivity Continue monitor Dizziness Possible related to bradycardia due to 1st degree AV block vs sepsis CT head negative for acute intracranial abnormality PT/OT evel Fall precaution Resolved Paroxysmal Afib Case discussed with his provider at the [facility] yesterday Pt was diagnosed with Afib on 07/2018 around the time he had the stroke Rate controlled with Metoprolol Continue Xarelto Bradycardia EKG showed first degree AV block cardiology on board On metoprolol for afib and does not want to hold it Cardiology recommended outpatient 14 days ZIO monitor if there is no diagnostic telemetry findings to provide an answer regarding the bradycardia question. Consider outpatient stress testing for further re-stratification. Stable on tele monitor Elevated troponin Mostly related to sepsis Troponin on admission 0.068, then peak to 0.515, now trending down to 0.481 EKG showed first degree AV block with no ischemic changes cardiology on board ECHO showed no wall motion abnormality with EF 55 to 60 % Continue statin Continue xarelto Hx CVA CTA head showed no acute intracranial hemorrhage or territorial infarct. CTA head/Neck showed no aneurysm, dissection, high-grade stenosis or proximal branch occlusion. Severe mixed plaque of the carotid bulbs and proximal internal carotid arteries results in less than 50% stenosis bilaterally. Continue Xarelto and statin Stable Hypertension Continue Metoprolol BP stable Diabetes type 2 Hemoglobin A1c of 7.1 on June 2019 On lantus and novolog sliding scale Continue monitor BS DVT prophylaxis on Xarelto CODE STATUS Full code Disposition Daughter (Ms. Shala Calvo, [phone]) Will try get record from the [facility] on Sunday if pt remains in the hospital (unfortunately they are close on weekend and they close at 4PM today) Informed daughter that he would need outpatient follow up with provider at the [facility] within 1 week Admission and Anticipated Discharge Date Admission Date: September 11, 2019 Subjective Pt was seen and examined Lying in bed with no distress He wants to go home He said that he feels fine I spoke to daughter today and provided updates Denies any chest pain, palpitation, dizziness and SOB Physical Exam Physical Exam: General- No acute distress Head- atraumatic Eyes- PERRL, EOMI, ENT- oropharynx clear Neck- supple, no JVD Lungs- clear to auscultation Heart- No murmur Abdomen- normal bowel sounds, soft, nontender, peg tube in place Extremities- no calf tenderness Neuro- alert, oriented x 3; PERRL, EOMI; no facial palsy; no dysarthria Skin- warm & dry Results & Data Results & Data ([facility]) Vital Signs (Past 12 Hours) Vital Signs Temp Pulse Pulse Resp BP BP Pulse Ox 09/13/19 14:53 36.8 C 65 20 132/81 98 09/13/19 11:00 36.3 C L 57 L 18 150/73 H 98 09/13/19 09:55 62 09/13/19 07:11 36.3 C L 60 18 163/76 H 98 09/13/19 04:50 36.6 C 57 L 20 142/82 H 156/85 H 97
[2019-09-13] MEDS: RIVAROXABAN 20 MG TAB PO SCH (17:18)
[2019-09-14] MEDS: CEFEPIME 2,000 MG in SYRINGE 7.5 ML IV SCH (05:08)
[2019-09-14 06:38] LABS: Hematocrit (blood only) 41.4 % (42-52); Hemoglobin 13.2 g/dL (14.0-18.0); Mean Corpuscular Hemoglobin 28.1 pg (25-34); Mean Corpuscular Hgb Conc 31.9 g/dL (32-36); Mean Corpuscular Volume 88.3 fL (80-100); Mean Platelet Volume 10.3 fL (7.4-10.4); Platelet Count 241 K/uL (130-400); RDW Coefficient of Variation 14.3 % (11.5-14.5); Red Blood Count 4.69 M/uL (4.7-6.1); White Blood Count 9.98 K/uL (4.8-10.8)
[2019-09-14 07:07] LABS: Creatinine Clr Calc Pharmacy 67.4 ml/min; Est GFR (African American) 93.4; Est GFR (Non-African American) 80.6
[2019-09-14] MEDS: METOPROLOL TARTRATE 25 MG TAB PO SCH (09:12)
[2019-09-14] MEDS: SENNA 8.6 MG TAB PO SCH (09:13)
[2019-09-14] MEDS: DOCUSATE SODIUM 100 MG CAP PO SCH (09:13)
[2019-09-14] MEDS: INSULIN ASPART 100 UNITS/ML 3 ML PEN SC SCH ×2 (09:13→12:43)
[2019-09-14] MEDS: ATORVASTATIN 10 MG TAB PO SCH (09:13)
[2019-09-14] MEDS: INSULIN GLARGINE SOLOSTAR 100 UNITS/ML 3 ML PEN SQ SCH (09:16)
--- NOTE | 2019-09-14 11:29 | Hospitalist Progress Note ---
Date of Service September 14, 2019 Assessment & Plan (1) Sepsis: Present on admission with tachycardia and elevated WBC UA on admission positive with leukocytes and bacteria WBC on admission 20K, now trending down to 17K, then back to normal (WBC=9.98) Received IV Zosyn in the ER On IV cefepime BID, will transition to cipro Blood cx no growth Urine cx grew gram negative bacilli (Pseudomonas aeruginosa) Will discharge on cipro BID ( advised daughter to monitor him while on Cipro due to increase confusion) Dizziness Possible related to bradycardia due to 1st degree AV block vs sepsis CT head negative for acute intracranial abnormality PT/OT evalaution Fall precaution Resolved Paroxysmal Afib [facility] Pt was diagnosed with Afib on 07/2018 around the time he had the stroke Rate controlled with Metoprolol Continue Xarelto Bradycardia EKG showed first degree AV block cardiology on board On metoprolol for afib and does not want to hold it Cardiology recommended outpatient 14 days ZIO monitor if there is no diagnostic telemetry findings to provide an answer regarding the bradycardia question. Consider outpatient stress testing for further re-stratification. Stable on tele monitor Elevated troponin Mostly related to sepsis Troponin on admission 0.068, then peak to 0.515, now trending down to 0.481 EKG showed first degree AV block with no ischemic changes cardiology on board ECHO showed no wall motion abnormality with EF 55 to 60 % Continue statin Continue xarelto Hx CVA CTA head showed no acute intracranial hemorrhage or territorial infarct. CTA head/Neck showed no aneurysm, dissection, high-grade stenosis or proximal branch occlusion. Severe mixed plaque of the carotid bulbs and proximal internal carotid arteries results in less than 50% stenosis bilaterally. Continue Xarelto and statin Stable Hypertension Continue Metoprolol BP stable Diabetes type 2 Hemoglobin A1c of 7.1 on June 2019 Pt takes Lantus 25units HS and humalog sliding scale On lantus 10units daily and novolog sliding scale in the hospital BS in the hospital has been good Will consider to decrease lantus to 15 units on discharge Spoke to daughter to monitor his BS closely and if BS start to increase in the high 200's consider to go back to his previous dose 25 units Daughter was advised to bring his BS log at next appointment with PCP Continue monitor BS DVT prophylaxis on Xarelto CODE STATUS Full code Disposition Daughter (Ms. Shala Calvo, [phone]) [facility] if pt remains in the hospital (unfortunately they are close on weekend and they close at 4PM today) Informed daughter that he would need outpatient follow up with provider at the [facility] within 1 week Admission and Anticipated Discharge Date Admission Date: September 11, 2019 Subjective Pt was seen and examined Sitting in chair with no distress Pt said that he feels fine He said that he is back to his baseline Spoke to daughter today and provided update Denies any chest pain, palpitation, dizziness and SOB Physical Exam Physical Exam: General- No acute distress Head- atraumatic Eyes- PERRL, EOMI, ENT- oropharynx clear Neck- supple, no JVD Lungs- clear to auscultation Heart- No murmur Abdomen- normal bowel sounds, soft, nontender, peg tube in place Extremities- no calf tenderness Neuro- alert, oriented x 3; PERRL, EOMI; no facial palsy; no dysarthria Skin- warm & dry Results & Data Results & Data ([facility]) Vital Signs (Past 12 Hours) Vital Signs Temp Pulse Resp BP Pulse Ox 09/14/19 04:39 36.4 C L 57 L 18 137/71 97 09/13/19 23:54 36.4 C L 72 18 135/71 96
--- NOTE | 2019-09-14 17:35 | Discharge Summary ---
Date of Service September 14, 2019 Admission HPI Per Admitting Provider History obtained from patient and records. Medical history significant for CVA, hypertension, hyperlipidemia, DM 2 insulin requiring, ongoing NOAC use. Recent confinement March 2019 at [facility] in [place] for acute CVA. PEG tube placed during confinement due to aspiration risk following stroke. Patient discharged to [facility] for rehab on Eliquis for stroke protection as per patient. Unaware of heartbeat issues. Patient able to tolerate pured diet the last 2 months. PEG tube not being used the last 2 months as per patient. Patient discharged home from [facility] last month. Today patient experienced dizziness described as lightheadedness. [place] like he was going to pass out. No chest pain, no S OB. No unusual cough/flulike symptoms. No abdominal pain/dysuria symptoms. At the ER, patient received Zosyn for sepsis. 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 Admission Exam Per Admitting Provider GENERAL: Slightly uncomfortable/impatient, dysarthric (chronic), hyponasal voice, no respiratory distress SKIN: Normal color, warm HEENT: [place] palpebral conjunctivae, no ptosis, dry buccal mucosa NECK : Supple, no tenderness CHEST : CTA, no tenderness HEART : RRR, no obvious murmurs ABDOMEN: Some distention, PEG tube in place with dried dark residue, nontender EXTREMITIES : No LE swelling/tenderness, no other conspicuous deformities noted NEUROLOGIC : Coherent, dysarthric (chronic), no facial asymmetry, gait and stance not assessed Principal Diagnosis Sepsis Dizziness Paroxysmal Afib Bradycardia Elevated troponin Hx CVA Hypertension Diabetes type 2 Discharge Exam General- No acute distress Head- atraumatic Eyes- PERRL, EOMI, ENT- oropharynx clear Neck- supple, no JVD Lungs- clear to auscultation Heart- No murmur Abdomen- normal bowel sounds, soft, nontender, peg tube in place Extremities- no calf tenderness Neuro- alert, oriented x 3; PERRL, EOMI; no facial palsy; no dysarthria Skin- warm & dry Discharge Data Allergies Allergy/AdvReac Type Severity Reaction Status Date / Time No Known Allergies Allergy Verified 09/11/19 21:42 Consultations 09/11/19 22:22 ED Decision to Admit Stat 04/24/20 09:31 Consult Cardiology Routine Ordered Studies 09/11/19 20:06 CT angio head w con Stat CT angio neck with con Stat CT head/brain wo con Stat CT head/brain wo con CLINICAL HISTORY: 83 years-old Male with Stroke evaluation . Acute strokelike symptoms TECHNIQUE: Multiple axial CT images of the head were obtained without contrast. A dose lowering technique was utilized adhering to the principles of ALARA. CT DOSE: 1180.98 mGy.cm COMPARISON: CTA head neck of same day FINDINGS: No acute intracranial hemorrhage, midline shift, intracranial mass, hydrocephalus, territorial ischemia or abnormal extra-axial collection. Age-rela yandel involutional changes with mild ex vacuo ventriculomegaly. Extensive white matter hypodensities suggest chronic microvascular ischemic disease. Hypodensities of the left lentiform nucleus, thalamus and cerebral peduncle are suggestive of remote infarct. The calvarium is intact. Severe near complete opacification of the ethmoid sinuses. Trace mastoid effusions. Soft tissues are unremarkable. Prior bilateral cataract repair. IMPRESSION: 1. No acute intracranial hemorrhage or territorial infarct. 2. Age-related involutional changes with extensive chronic microvascular ischemic disease. 3. Hypodensities of the left lentiform nucleus, thalamus and cerebral peduncle are suggestive of remote infarcts with wallerian degeneration. ACT 112: Negative or not required by law. The above report was generated using voice recognition software. It may contain grammatical, syntax or spelling errors. Electronically signed by: Gera Naqvi M.D. 09/11/2019 8:53 PM Dictated: 09/11/192046 Transcribed: 09/11/192046 CT angio neck with con, CT angio head w con CLINICAL HISTORY: 83 years-old Male with Stroke evaluation. Acute strokelike symptoms COMPARISON STUDY: CT of the head of same day TECHNIQUE: Following the IV administration of 115 mL of Optiray 320, CT angiogram of the head and neck was performed from the aortic arch to the skull apex. Images are reviewed in the axial, sagittal, and coronal planes. 3-D MIPS images are created and assessed. IV contrast was administered without complication. All measurements were calculated based on NASCET criteria. A dose lowering technique was utilized adhering to the principles of ALARA. FINDINGS: Moderate mixed plaque of the thoracic aortic arch. Patency of the imaged bilateral subclavian arteries. The study is mildly limited secondary to contrast bolus timing and also secondary to patient motion. Moderate mixed plaque of the common carotid arteries without high-grade stenosis. Severe mixed plaque of the bilateral carotid bulbs and proximal internal carotid arteries results in less than 50% stenosis bilaterally. Calcified plaque of the cavernous and supraclinoid segments is also present without high-grade stenosis. The petrous segments are not well opacified and are therefore difficult to evaluate. The bilateral middle and anterior cerebral arteries appear patent with mostly mild multifocal luminal narrowing. The anterior cerebral arteries are also patent. Moderate luminal narrowing of the proximal right A1 segment. Dominant right vertebral artery. The left vertebral artery appears to terminate into the left PICA. Vertebral and basilar arteries are patent. Multifocal moderate grade luminal narrowing is noted throughout the right posterior cerebral artery. Mild multifocal luminal narrowing of the left posterior cerebral artery. Cerebral venous sinuses are patent. There is no aneurysm, dissection or proximal branch occlusion. No abnormal intracranial enhancement. Involutional changes with chronic microvascular ischemic disease. Hypodensities of the left lentiform nucleus, thalamus and cerebral peduncle are suggestive of remote infarct. Severe paranasal sinus disease. No pneumothorax. Soft tissues are unremarkable. Multilevel degenerative changes of the spine. IMPRESSION: 1. No aneurysm, dissection, high-grade stenosis or proximal branch occlusion. 2. Severe mixed plaque of the carotid bulbs and proximal internal carotid arteries results in less than 50% stenosis bilaterally. 3. Multifocal mild and moderate luminal narrowing of the intracranial arteries as detailed above. ACT 112: Negative or not required by law. The above report was generated using voice recognition software. It may contain grammatical, syntax or spelling errors. Electronically signed by: Gera Naqvi M.D. 09/11/2019 9:07 PM Dictated: 09/11/192057 Transcribed: 09/11/192057 CT angio neck with con, CT angio head w con CLINICAL HISTORY: 83 years-old Male with Stroke evaluation. Acute strokelike symptoms COMPARISON STUDY: CT of the head of same day TECHNIQUE: Following the IV administration of 115 mL of Optiray 320, CT angiogram of the head and neck was performed from the aortic arch to the skull apex. Images are reviewed in the axial, sagittal, and coronal planes. 3-D MIPS images are created and assessed. IV contrast was administered without complication. All measurements were calculated based on NASCET criteria. A dose lowering technique was utilized adhering to the principles of ALARA. FINDINGS: Moderate mixed plaque of the thoracic aortic arch. Patency of the imaged bilateral subclavian arteries. The study is mildly limited secondary to contrast bolus timing and also secondary to patient motion. Moderate mixed plaque of the common carotid arteries without high-grade stenosis. Severe mixed plaque of the bilateral carotid bulbs and proximal internal carotid arteries results in less than 50% stenosis bilaterally. Calcified plaque of the cavernous and supraclinoi d segments is also present without high-grade stenosis. The petrous segments are not well opacified and are therefore difficult to evaluate. The bilateral middle and anterior cerebral arteries appear patent with mostly mild multifocal luminal narrowing. The anterior cerebral arteries are also patent. Moderate luminal narrowing of the proximal right A1 segment. Dominant right vertebral artery. The left vertebral artery appears to terminate into the left PICA. Vertebral and basilar arteries are patent. Multifocal moderate grade luminal narrowing is noted throughout the right posterior cerebral artery. Mild multifocal luminal narrowing of the left posterior cerebral artery. Cerebral venous sinuses are patent. There is no aneurysm, dissection or proximal branch occlusion. No abnormal intracranial enhancement. Involutional changes with chronic microvascular ischemic disease. Hypodensities of the left lentiform nucleus, thalamus and cerebral peduncle are suggestive of remote infarct. Severe paranasal sinus disease. No pneumothorax. Soft tissues are unremarkable. Multilevel degenerative changes of the spine. IMPRESSION: 1. No aneurysm, dissection, high-grade stenosis or proximal branch occlusion. 2. Severe mixed plaque of the carotid bulbs and proximal internal carotid arteries results in less than 50% stenosis bilaterally. 3. Multifocal mild and moderate luminal narrowing of the intracranial arteries as detailed above. ACT 112: Negative or not required by law. The above report was generated using voice recognition software. It may contain grammatical, syntax or spelling errors. Electronically signed by: Gera Naqvi M.D. 09/11/2019 9:07 PM Dictated: 09/11/192057 Transcribed: 09/11/192057 XR chest 1V portable HISTORY: 83 years-old Male AMS acutely altered mental status COMPARISON: KUB 08/04/2019 TECHNIQUE: Portable AP view of the chest FINDINGS: Cardiomediastinal and hilar silhouettes are within normal limits. Ill-defined right infrahilar opacities. No pneumothorax, pleural effusion or overt pulmonary edema. Degenerative changes of the shoulders and spine. Left shoulder rotator cuff calcific tendinosis. IMPRESSION: Ill-defined right infrahilar opacities suggest atelectasis, pneumonia or aspiration pneumonitis. ACT 112: Negative or not required by law. The above report was generated using voice recognition software. It may contain grammatical, syntax or spelling errors. Electronically signed by: Gera Naqvi M.D. 09/11/2019 9:40 PM Dictated: 09/11/192135 Transcribed: 09/11/192135 Hospital Course (1) Sepsis: Present on admission with tachycardia and elevated WBC UA on admission positive with leukocytes and bacteria CXR showed Ill-defined right infrahilar opacities suggest atelectasis, pneumonia or aspiration pneumonitis. WBC on admission 20K, now trending down to 17K, then back to normal (WBC=9.98) Doubt for pneumonia because pt has no respiratory symptoms Received IV Zosyn in the ER On IV cefepime BID, will transition to cipro Blood cx no growth Urine cx grew gram negative bacilli (Pseudomonas aeruginosa) Will discharge on cipro BID ( advised daughter to monitor him while on Cipro due to increase confusion) Dizziness Possible related to bradycardia due to 1st degree AV block vs sepsis CT head negative for acute intracranial abnormality PT/OT evalaution Fall precaution Resolved Paroxysmal Afib [facility] was diagnosed with Afib on 07/2018 around the time he had the stroke Rate controlled with Metoprolol Continue Xarelto Bradycardia EKG showed first degree AV block cardiology on board On metoprolol for afib and does not want to hold it Cardiology recommended outpatient 14 days ZIO monitor if there is no diagnostic telemetry findings to provide an answer regarding the bradycardia question. Consider outpatient stress testing for further re-stratification. Stable on tele monitor Elevated troponin Mostly related to sepsis Troponin on admission 0.068, then peak to 0.515, now trending down to 0.481 EKG showed first degree AV block with no ischemic changes cardiology on board ECHO showed no wall motion abnormality with EF 55 to 60 % Continue statin Continue xarelto Hx CVA CTA head showed no acute intracranial hemorrhage or territorial infarct. CTA head/Neck showed no aneurysm, dissection, high-grade stenosis or proximal branch occlusion. Severe mixed plaque of the carotid bulbs and proximal internal carotid arteries results in less than 50% stenosis bilaterally. Continue Xarelto and statin Stable Hypertension Continue Metoprolol BP stable Diabetes type 2 Hemoglobin A1c of 7.1 on June 2019 Pt takes Lantus 25units HS and humalog sliding scale On lantus 10units daily and novolog sliding scale in the hospital BS in the hospital has been good Will consider to decrease lantus to 15 units on discharge Spoke to daughter to monitor his BS closely and if BS start to increase in the high 200's consider to go back to his previous dose 25 units Daughter was advised to bring his BS log at next appointment with PCP Continue monitor BS DVT prophylaxis on Xarelto CODE STATUS Full code Disposition Daughter (Ms. Shala Calvo, [phone]) Will try get record from the [facility] on Sunday if pt remains in the hospital (unfortunately they are close on weekend and they close at 4PM today) Informed daughter that he would need outpatient follow up with provider at the [facility] within 1 week Total Time Total Time Spent Total Time Spent (In Minutes): 35 minutes Total Time Includes: Examination of the Patient, Discharge Planning, Medication Reconciliation, Communication With Other Providers and Other Discharge Plan Discharge Items Patient Disposition: Home - Self-Care Reason For Visit: SEPSIS Discharge Diagnosis: Sepsis Dizziness Paroxysmal Afib Bradycardia Elevated troponin Hx CVA Hypertension Diabetes type 2 Activity: Resume your previous activity Non-emergency contact: Primary Care Provider and Cop Breaker Call non-emergency contact if: you have any medication questions Follow-up/Referrals: Tamie Leung PA-C [Primary Care Provider] - Diet: Carb Consistent or DM2 Addtl Attending Provider Instructions: Follow up with your primary care provider at the [facility] within 1 week ( daughter will call to schedule for the appointment) Follow up with cardiology (Your provider at the [facility] can arrange for the referral ) You will need to get a ZIO patch to wear for 14 days to monitor your heart rate and rhythm (Your provider at the [facility] or lighting engineer can arrange for that) Complete the course of the antibiotic with cipro ( please monitor him while on cipro since it can cause confusion) Fall precaution since you are on a blood thinner that can cause bleeding. Continue monitor your blood sugar closely and bring your blood sugar log at your next appointment with your provider Pending Studies at Discharge: No Stand-Alone Forms: My [facility], Smoking Cessation Medications and DC Order Prescriptions: New ciprofloxacin HCl [Cipro] 500 mg tablet 500 mg PO BID Qty: 6 RF: 0 Continued atorvastatin [Lipitor] 10 mg tablet 0 mg PO QAM RF: 0 insulin aspart U-100 [Novolog PenFill U-100 Insulin] 100 unit/mL cartridge See Rx Instructions .ROUTE .COMPLEX RF: 0 docusate sodium [Colace] 100 mg Capsule 100 mg PO DAILY RF: 0 senna 8.6 mg Capsule 8.6 mg PO QAM RF: 0 metoprolol tartrate 25 mg Tablet 12.5 mg PO BID RF: 0 cholecalciferol (vitamin D3) [Vitamin D3] 25 mcg (1,000 unit) Tablet 1,000 unit PO QPM RF: 0 rivaroxaban 2.5 mg Tablet 0 mg PO QPM RF: 0 Changed Lantus Solostar U-100 Insulin 100 unit/mL (3 mL) insulin pen 15 units SQ DAILY Qty: 0 RF: 0 Discharge Orders: Discharge Order (Routine); Ordered 09/14/19 Ordered By: Dennise Bowen Admission Data Admit Date/Time: 09/11/19 23:10 Attending Provider: Dennise Bowen Admit Provider: Shade Matos Primary Care Provider: Tamie Leung Other Providers: Shade Matos ; Boom Drummond Other Interventions: Discharge Summary Assessment (RN) Last Done: 09/14/19 14:06 DC Date/Time DO NOT enter until pt leaves facility: 09/14/19 16:34
== END 2019-09-14 16:34 | disposition home or self-care (01) | DRG 872 ==
LOC: ED 19:45 → 2N 23:10

== ENCOUNTER 2019-11-14 06:28 | Inpatient (IN) ==
--- NOTE | 2019-11-14 06:37 | Emergency Department Note ---
Impression & Plan Dehydration, Nausea & vomiting, Leukocytosis ED Provider Note NAME: LIGIA NOBLES Jr AGE: 83 SEX: M : 1935 ARRIVES VIA: Ambulance INFORMANT: Patient, ED PROVIDER(S): Michael Chance MD Chief Complaint: Abdominal pain HPI: Patient presents with concern for abdominal pain. Patient relates to EMS he had it for 1 day but says it is been several days. Patient does not currently complain of any pain at the present. It is been intermittent. Achy in nature. The patient does have a prior history of gastric mass and prior gastrostomy tube which was recently removed several weeks ago. Patient currently lives by himself. Decreased p.o. intake. Patient does not complain of any fevers or chills. He has had one episode of vomiting with nausea but the patient currently denies any nausea at present. No diarrhea or urinary symptoms. Patient does have associated dizziness and weakness. Patient recent ly changed from Xarelto to Coumadin. Patient does relate his daughter is the power of state attorney. ROS: See HPI for pertinent positives and negatives. A total of 10 systems were reviewed and otherwise negative. Past medical history: See below Surgical history: See below Social history: See below Physical Exam: GENERAL: NAD, non-toxic. Mask. EYE EXAM: Normal conjunctiva. PERRL, no anisocoria and EOM's grossly intact w/o pain. NECK: Supple, no nuchal rigidity, no adenopathy, non-tender. No signs of meningismus. LUNGS: Clear to auscultation. Normal chest wall mechanics. HEART: Tachycardic and regular, no MRG. ABDOMEN: Abdomen soft, non-tender, healing prior G-tube site, no erythema fluctu ance or drainage. Normo-active bowel sounds, no masses, no rebound or guarding. BACK: No CVA TTP. SKIN: No rashes and no bruising. UPPER EXTREMITIES: Upper extremities are grossly normal. LOWER EXTREMITIES: Grossly normal, no edema. NEURO EXAM: A&O x3, cranial nerves II-XII grossly intact, dysarthria present, right-sided weakness. Differential diagnoses: Appendicitis, testicular torsion, infections, diverticulitis, UTI, obstruction, mesenteric ischemia, aortic pathology, inflammatory bowel disease, renal colic, PUD, pancreatitis, biliary pathology, hernia, volvulus, constipation, as well as other pathologies. Course: Patient was seen and evaluated the bedside. Full history physical exam was performed. EKG: Indication: Tachycardia Showed a junctional rhythm, rate of 122, normal QRS, Q waves inferiorly slight depression in the lateral leads. This is an acute change from September 12, 2019 the patient is sinus rhythm increase in rate currently. Imaging Studies: Radiology results as stated below per my review in the radiologist's interpretation: CT SCAN OF THE ABDOMEN AND PELVIS WITH IV CONTRAST CLINICAL HISTORY: Generalized abdominal pain. COMPARISON STUDY: KUB dated 08/04/2019. TECHNIQUE: Following the IV administration of 94 cc of Optiray 320, CT scan of the abdomen and pelvis is performed from the lung bases to the proximal femora. Images are reviewed in the axial, sagittal, and coronal planes. IV contrast was administered without complication. A dose lowering technique was utilized adhering to the principles of ALARA. The examination is degraded by motion ar tifact. CT DOSE: 416.81 mGy.cm FINDINGS: Lung bases: The heart is top normal in size and without pericardial effusion. The coronary arteries and mitral annulus are calcified. Evaluation of the lung bases is degraded by motion artifact. There is bibasilar scarring/atelectasis. No airspace consolidation or pleural effusion is identified. A small hiatal hernia is noted. Liver: The contrast-enhanced liver is normal in size, contour, and attenuation. There is no intrahepatic biliary ductal dilatation. The hepatic veins and portal veins are patent. Gallbladder: Unremarkable. Spleen: Normal in size and attenuation. Pancreas: Moderately atrophic and grossly unremarkable. The pancreatic duct is normal in caliber. Adrenal glands: Unremarkable. Kidneys: The contrast enhanced kidneys demonstrate cortical atrophy and are without hydronephrosis. The kidneys enhance symmetrically. A 2.8 cm cyst is noted in the left lower pole. Abdominal vasculature: The abdominal aorta is normal in course and caliber noting advanced atherosclerotic calcification. Bowel: There is no bowel obstruction. Mild fecal retention is seen throughout the colon. The appendix is not identified and reported surgically absent. Peritoneum: There is no intraperitoneal free air or abdominal ascites. A tract from a previous gastrostomy tube is noted in the ventral abdominal wall on image #137. Lymphadenopathy: None. Pelvic viscera: The prostate gland is markedly enlarged and heterogeneous noting median lobe hypertrophy. The bladder is distended. The bladder wall is mildly thickened and trabeculated indicating chronic outlet obstruction. Skeletal structures: The skeletal structures are osteopenic. Moderate lumbosacral spondylosis is observed. No lytic or blastic lesions are seen. IMPRESSION: 1. There are no acute infectious or inflammatory findings in the abdomen or pelvis noting a motion compromised examination. 2. Marked prostatomegaly with evidence of chronic bladder outlet obstruction. 3. Additional findings as above. ACT 112: Negative or not required by law. Electronically signed by: Mir Cantu M.D. 11/14/2019 7:47 AM Dictated: 11/14/19 0738 Transcribed: 11/14/19737 XR chest 1V portable CLINICAL HISTORY: Shortness of breath, tachycardia dyspnea COMPARISON STUDY: 09/11/2019 FINDINGS: The bones soft tissues and hemidiaphragms are normal. The cardiomediastinal silhouette is normal. The lungs are clear. The pulmonary vasculature is normal. IMPRESSION: Negative chest. ACT 112: Negative or not required by law. The above report was generated using voice recognition software. It may contain grammatical, syntax or spelling errors. Electronically signed by: Masood Asencio M.D. 11/14/2019 8:04 AM Dictated: 11/14/19 0804 Transcribed: 11/14/19803 Cardiac monitoring: An order was placed for continuous cardiac monitoring. The monitor shows a rate of 123 with sinus tachycardia rhythm. MDM: Patient does present with concern for abdominal pain. Patient more has some relation of weakness and dizziness. The resident physician did call the daughter who stated that the patient has been doing well. Daughter did not have anything else to add at this time. Upon reassessment the patient's tachycardia is improving with IV fluids. Patient d oes have a white count. Patient does have left shift. INR is therapeutic at 2.3. Slightly elevated glucose but normal gap and bicarb. Troponin is detectable and elevated but is lower compared to prior. Believe this may be more demand ischemia or rate related as the patient's heart rate had been slightly higher. CT of the abdomen pelvis is unremarkable and the chest x-ray is clear. Did speak with the on-call hospitalist who agreed to further evaluate treat the patient. Patient was admitted to the medicine service. Of note the patient did have an episode of vomiting briefly after CT scan. The patient was breathing normally but there possibly could have been some aspiration given the patient's prior history of stroke. Patient had already been covered with Zosyn. Urinalysis is negative. Patient admitted by [facility] by Dr. Pradhan. 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 Jerri Hayden @ [facility] [place] Neurology Transient ischemic attack (TIA) 07/2018--no lasting deficits from that mini stroke Surgical History History of abdominal surgery removal of stomach cancer mass History of appendectomy History of bilateral cataract extraction History of esophagogastroduodenoscopy (EGD) History of gastric restrictive surgery History of nasal polypectomy History of prostate surgery History of tooth extraction most teeth removed Status post insertion of percutaneous endoscopic gastrostomy (PEG) tube Family History Brother Family history of diabetes mellitus Other No family history of adverse response to anesthesia No family history of bleeding disorder Social History Preferred Language: Ukrainian Communication Ability: Effective Edge Blacker Required: No Beliefs That Will Affect Care: None Current Living Situation: Alone Current Living Situation Comment: in an apartment current occupational status: retired Feels Safe at Home: Yes Smoking Status: Never smoker Second Hand Exposure: No ; Hx Alcohol Use: No Hx Substance Use: No Allergies Allergies Allergy/AdvReac Type Severity Reaction Status Date / Time No Known Allergies Allergy Verified 11/14/19 07:16 Home Meds Home Medications Medication Instructions Recorded Confirmed insulin aspart U-100 100 unit/mL See Rx Instructions .ROUTE .COMPLEX 05/30/19 11/14/19 subcutaneous cartridge cholecalciferol (vitamin D3) 1,000 unit PO QDD 08/04/19 11/14/19 [Vitamin D3] metoprolol tartrate 25 mg PO BIDM 08/04/19 11/14/19 docusate sodium [Colace] 100 mg PO QAM 09/11/19 11/14/19 Lantus Solostar U-100 Insulin 18 units SQ HS 10/23/19 11/14/19 albuterol sulfate 1 puff INHALATION QID PRN 10/23/19 11/14/19 albuterol sulfate 2.5 mg INHALATION QID PRN 10/23/19 11/14/19 sennosides [senna] 8.6 mg PO QAM 10/23/19 11/14/19 atorvastatin 10 mg PO QAM 11/14/19 11/14/19 enoxaparin [Lovenox] 0 mg SUBCUT UD 11/14/19 11/14/19 warfarin 0 mg PO QDD 11/14/19 11/14/19 Results & Data (ED) Vital Signs Vital Signs - 24 hr 11/14/19 06:33 11/14/19 06:37 11/14/19 06:39 Temperature 37.1 C Temperature Source Oral Pulse Rate 122 H 122 H 123 H Pulse Rate from SpO2 Sensor 123 H 122 H Respiratory Rate 18 18 22 Respiratory Effort / Characteristics Non-Labored Spontaneous Respiratory Depth Normal Respiratory Pattern Regular Blood Pressure 104/74 104/74 Blood Pressure Mean 78 84 Pulse Oximetry 92 93 92 Oxygen Delivery Method Room Air Room Air Room Air Sepsis Recent Fever Within 48 Hours No Sepsis New/Unexplained Change in Mental Status No Sepsis Action Taken by Nursing No Action Required 11/14/19 07:00 11/14/19 07:31 11/14/19 07:32 Temperature Temperature Source Pulse Rate 107 H 107 H 111 H Pulse Rate from SpO2 Sensor 107 H 113 H Respiratory Rate 21 21 19 Respiratory Effort / Characteristics Respiratory Depth Respiratory Pattern Blood Pressure 157/85 H Blood Pressure Mean 128 Pulse Oximetry 91 97 Oxygen Delivery Method Room Air Room Air Sepsis Recent Fever Within 48 Hours Sepsis New/Unexplained Change in Mental Status Sepsis Action Taken by [facility] Medications Current Medication List: was personally reviewed by me Laboratory Data Attestation: I reviewed the patient's lab results. Result diagrams: 11/14/19 06:35 11/14/19 06:35 Lab Results 11/14/19 11/14/19 11/14/19 Range/Units 06:35 06:35 06:35 WBC 21.39 H (4.8-10.8) K/uL RBC 4.92 (4.7-6.1) M/uL Hgb 13.5 L (14.0-18.0) g/dL Hct 43.0 (42-52) % MCV 87.4 (80-100) fL MCH 27.4 (25-34) pg MCHC 31.4 L (32-36) g/dL RDW Std Deviation 46.0 (36.4-46.3) fL RDW Coeff of Mainor 14.3 (11.5-14.5) % Plt Count 247 (130-400) K/uL MPV 10.0 (7.4-10.4) fL Immature Gran % (Auto) 0.2 % Neut % (Auto) 84.3 % Lymph % (Auto) 7.7 % Trimble % (Auto) 6.8 % Eos % (Auto) 1.0 % Baso % (Auto) 0.0 % Neut # (Auto) 18.02 H (1.4-6.5) K/uL Lymph # (Auto) 1.64 (1.2-3.4) K/uL Trimble # (Auto) 1.45 H (0.11-0.59) K/uL Eos # (Auto) 0.22 (0-0.5) K/uL Baso # (Auto) 0.01 (0-0.2) K/uL Immature Gran # (Auto) 0.05 H (0.00-0.02) K/uL PT 23.4 H (9.0-12.0) Seconds INR 2.3 H (0.9-1.1) APTT 38.2 H (21.0-31.0) Seconds PTT Ratio 1.4 Sodium 142 (136-145) mmol/L Potassium 3.8 (3.5-5.1) mmol/L Chloride 107 (98-107) mmol/L Carbon Dioxide 29 (21-32) mmol/L Anion Gap 6.0 (3-11) BUN 18 (7-18) mg/dl Creatinine 1.06 (0.6-1.4) mg/dl Est Cr Clr Drug Dosing 56.1 ml/min Est GFR ( Amer) 74.9 Est GFR (Non-Af Amer) 64.6 BUN/Creatinine Ratio 16.7 (10-20) Glucose 178 H (70-99) mg/dl Calcium 8.7 (8.5-10.1) mg/dl Total Bilirubin 0.6 (0.2-1) mg/dl AST 16 (15-37) U/L ALT 36 (12-78) U/L Alkaline Phosphatase 49 (45-117) U/L Troponin I 0.075 H* (0-0.045) ng/ml Total Protein 7.0 (6.4-8.2) gm/dl Albumin 3.4 (3.4-5.0) gm/dl Globulin 3.6 (2.5-4.0) gm/dl Albumin/Globulin Ratio 0.9 (0.9-2) Lipase 74 (73-393) U/L Urine Color Urine Appearance (Clear) Urine pH (4.5-7.5) Ur Specific Burton (1.000-1.030) Urine Protein (Negative) Urine Glucose (UA) (Negative) Urine Ketones (Negative) Urine Blood (Negative) Urine Nitrite (Negative) Urine Bilirubin (Negative) Urine Urobilinogen (Negative) Ur Leukocyte Esterase (Negative) 11/14/19 Range/Units 07:44 WBC (4.8-10.8) K/uL RBC (4.7-6.1) M/uL Hgb (14.0-18.0) g/dL Hct (42-52) % MCV (80-100) fL MCH (25-34) pg MCHC (32-36) g/dL RDW Std Deviation (36.4-46.3) fL RDW Coeff of Mainor (11.5-14.5) % Plt Count (130-400) K/uL MPV (7.4-10.4) fL Immature Gran % (Auto) % Neut % (Auto) % Lymph % (Auto) % Trimble % (Auto) % Eos % (Auto) % Baso % (Auto) % Neut # (Auto) (1.4-6.5) K/uL Lymph # (Auto) (1.2-3.4) K/uL Trimble # (Auto) (0.11-0.59) K/uL Eos # (Auto) (0-0.5) K/uL Baso # (Auto) (0-0.2) K/uL Immature Gran # (Auto) (0.00-0.02) K/uL PT (9.0-12.0) Seconds INR (0.9-1.1) APTT (21.0-31.0) Seconds PTT Ratio Sodium (136-145) mmol/L Potassium (3.5-5.1) mmol/L Chloride (98-107) mmol/L Carbon Dioxide (21-32) mmol/L Anion Gap (3-11) BUN (7-18) mg/dl Creatinine (0.6-1.4) mg/dl Est Cr Clr Drug Dosing ml/min Est GFR ( Amer) Est GFR (Non-Af Amer) BUN/Creatinine Ratio (10-20) Glucose (70-99) mg/dl Calcium (8.5-10.1) mg/dl Total Bilirubin (0.2-1) mg/dl AST (15-37) U/L ALT (12-78) U/L Alkaline Phosphatase (45-117) U/L Troponin I (0-0.045) ng/ml Total Protein (6.4-8.2) gm/dl Albumin (3.4-5.0) gm/dl Globulin (2.5-4.0) gm/dl Albumin/Globulin Ratio (0.9-2) Lipase (73-393) U/L Urine Color Yellow Urine Appearance Clear (Clear) Urine pH 8.0 H (4.5-7.5) Ur Specific Burton 1.016 (1.000-1.030) Urine Protein Negative (Negative) Urine Glucose (UA) Negative (Negative) Urine Ketones Negative (Negative) Urine Blood Negative (Negative) Urine Nitrite Negative (Negative) Urine Bilirubin Negative (Negative) Urine Urobilinogen Negative (Negative) Ur Leukocyte Esterase Negative (Negative) Administered Medications Ioversol (Optiray 320 100ml) 94 ml IV ONCE PRN PRN Reason: Interaction Checking Stop: 11/18/19 07:21 Last Admin: 11/14/19 07:22 Dose: 94 ml Documented by: [id number] Discontinued Medications Sodium Chloride (Nss) 500 mls @ 999 mls/hr IV .Q31M BRODY Stop: 11/14/19 07:30 Last Infusion: 11/14/19 07:37 Dose: 0 mls/hr Documented by: [id number] Admin: 11/14/19 07:01 Dose: 999 mls/hr Documented by: [id number] Piperacillin Sod/Tazobactam Sod (Zosyn) 4.5 gm in 120 mls @ 240 mls/hr IV NOW ONE Stop: 11/14/19 07:50 Last Infusion: 11/14/19 08:21 Dose: 0 mls/hr Documented by: [id number] Admin: 11/14/19 07:50 Dose: 240 mls/hr Documented by: [id number] Sodium Chloride (Nss 1000ml) 500 mls @ 999 mls/hr IV .Q31M ONE Stop: 11/14/19 08:11 Last Infusion: 11/14/19 08:21 Dose: 0 mls/hr Documented by: [id number] Admin: 11/14/19 07:50 Dose: 999 mls/hr Documented by: [id number] Metoprolol Tartrate (Lopressor) 5 mg IV NOW STA Stop: 11/14/19 07:06 Last Admin: 11/14/19 07:14 Dose: Not Given Documented by: [id number] Ondansetron HCl (Zofran) 4 mg IV NOW STA Stop: 11/14/19 07:40 Last Admin: 11/14/19 07:50 Dose: 4 mg Documented by: [id number] Discharge Plan Visit Data Chief Complaint: Abdominal Pain Stated Complaint: Abdominal pain ED Provider: Michael Chance ED Midlevel Provider: Talat Garcia Discharge Problem: Dehydration, Nausea & vomiting, Leukocytosis Forms Stand Alone Forms: [facility], [facility] Prescriptions Prescriptions: No Action insulin aspart U-100 [Novolog PenFill U-100 Insulin] 100 unit/mL cartridge See Rx Instructions .ROUTE .COMPLEX RF: 0 docusate sodium [Colace] 100 mg Capsule 100 mg PO QAM RF: 0 atorvastatin 20 mg Tablet 10 mg PO QAM RF: 0 warfarin 2.5 mg Tablet 0 mg PO QDD RF: 0 enoxaparin [Lovenox] 30 mg/0.3 mL Syringe 0 mg SUBCUT UD RF: 0 metoprolol tartrate 25 mg Tablet 25 mg PO BIDM RF: 0 cholecalciferol (vitamin D3) [Vitamin D3] 25 mcg (1,000 unit) Tablet 1,000 unit PO QDD RF: 0 Lantus Solostar U-100 Insulin 100 unit/mL (3 mL) insulin pen 18 units SQ HS RF: 0 sennosides [senna] 8.6 mg Tablet 8.6 mg PO QAM RF: 0 albuterol sulfate 2.5 mg /3 mL (0.083 %) Solution For Nebulization 2.5 mg INHALATION QID PRN (Reason: Shortness Of Breath) RF: 0 albuterol sulfate 90 mcg/actuation Hfa Aerosol Inhaler 1 puff INHALATION QID PRN (Reason: Shortness Of Breath) RF: 0 Discharge Problem: Nausea & vomiting Qualifiers: Vomiting type: unspecified Vomiting Intractability: non-intractable Qualified Code(s): R11.2 - Nausea with vomiting, unspecified Leukocytosis Qualifiers: Leukocytosis type: unspecified Qualified Code(s): D72.829 - Elevated white blood cell count, unspecified
[2019-11-14 06:54] LABS: Basophils # (auto) 0.01 K/uL (0-0.2); Eosinophils # (auto) 0.22 K/uL (0-0.5); Hemoglobin 13.5 g/dL (14.0-18.0); Immature Granulocytes # (auto) 0.05 K/uL (0.00-0.02); Immature Granulocytes % (auto) 0.2 %; Lymphocytes # (auto) 1.64 K/uL (1.2-3.4); Lymphocytes % (auto) 7.7 %; Mean Corpuscular Hemoglobin 27.4 pg (25-34); Mean Corpuscular Hgb Conc 31.4 g/dL (32-36); Mean Corpuscular Volume 87.4 fL (80-100); Monocytes # (auto) 1.45 K/uL (0.11-0.59); Monocytes % (auto) 6.8 %; Neutrophils # (auto) 18.02 K/uL (1.4-6.5); Neutrophils % (auto) 84.3 %; Platelet Count 247 K/uL (130-400); RDW Coefficient of Variation 14.3 % (11.5-14.5); Red Blood Count 4.92 M/uL (4.7-6.1); White Blood Count 21.39 K/uL (4.8-10.8)
[2019-11-14] MEDS ORDERED: SODIUM CHLORIDE 0.9% 500 ML IV SCH (07:00)
[2019-11-14] MEDS ORDERED: METOPROLOL TARTRATE 1 MG/ML VIAL IV STA (07:05)
[2019-11-14 07:10] LABS: Albumin Level 3.4 gm/dl (3.4-5.0); BUN Creatinine Ratio 16.7 (10-20); Calcium 8.7 mg/dl (8.5-10.1); Creatinine Clr Calc Pharmacy 56.1 ml/min; Est GFR (African American) 74.9; Est GFR (Non-African American) 64.6; Potassium 3.8 mmol/L (3.5-5.1)
[2019-11-14 07:15] LABS: INR 2.3 (0.9-1.1); Partial Thromboplastin Ratio 1.4; Partial Thromboplastin Time 38.2 Seconds (21.0-31.0); Prothrombin Time 23.4 Seconds (9.0-12.0)
[2019-11-14 07:18] LABS: Albumin Globulin Ratio 0.9 (0.9-2); Bilirubin,Total 0.6 mg/dl (0.2-1); Globulin 3.6 gm/dl (2.5-4.0); Troponin I 0.075 ng/ml (0-0.045)
[2019-11-14] MEDS ORDERED: PIPERACILL/TAZOBAC CONSULT ACTIVE PRN ×2 (07:21→12:04)
[2019-11-14] MEDS ORDERED: PIPERACILLIN/TAZOBACTAM 4.5 GM/120 ML BAG IV ONE (07:21)
[2019-11-14] MEDS ORDERED: IOVERSOL 100ml IV PRN (07:22)
[2019-11-14] MEDS ORDERED: ONDANSETRON INJ 2 MG/ML 2 ML VIAL IV STA (07:39)
[2019-11-14] MEDS ORDERED: SODIUM CHLORIDE 0.9% 1000ML 500 ML IV ONE (07:41)
--- NOTE | 2019-11-14 07:48 | CT Scan Report ---
CT SCAN OF THE ABDOMEN AND PELVIS WITH IV CONTRAST CLINICAL HISTORY: Generalized abdominal pain. COMPARISON STUDY: KUB dated 08/04/2019. TECHNIQUE: Following the IV administration of 94 cc of Optiray 320, CT scan of the abdomen and pelvi s is performed from the lung bases to the proximal femora. Images are reviewed in the axial, sagittal , and coronal planes. IV contrast was administered without complication. A dose lowering technique wa s utilized adhering to the principles of ALARA. The examination is degraded by motion artifact. CT DOSE: 416.81 mGy.cm FINDINGS: Lung bases: The heart is top normal in size and without pericardial effusion. The coronary arteries a nd mitral annulus are calcified. Evaluation of the lung bases is degraded by motion artifact. There i s bibasilar scarring/atelectasis. No airspace consolidation or pleural effusion is identified. A smal l hiatal hernia is noted. Liver: The contrast-enhanced liver is normal in size, contour, and attenuation. There is no intrahepa tic biliary ductal dilatation. The hepatic veins and portal veins are patent. Gallbladder: Unremarkable. Spleen: Normal in size and attenuation. Pancreas: Moderately atrophic and grossly unremarkable. The pancreatic duct is normal in caliber. Adrenal glands: Unremarkable. Kidneys: The contrast enhanced kidneys demonstrate cortical atrophy and are without hydronephrosis. T he kidneys enhance symmetrically. A 2.8 cm cyst is noted in the left lower pole. Abdominal vasculature: The abdominal aorta is normal in course and caliber noting advanced atheroscle rotic calcification. Bowel: There is no bowel obstruction. Mild fecal retention is seen throughout the colon. The appendix is not identified and reported surgically absent. Peritoneum: There is no intraperitoneal free air or abdominal ascites. A tract from a previous gastro stomy tube is noted in the ventral abdominal wall on image #137. Lymphadenopathy: None. Pelvic viscera: The prostate gland is markedly enlarged and heterogeneous noting median lobe hypertro phy. The bladder is distended. The bladder wall is mildly thickened and trabeculated indicating chron ic outlet obstruction. Skeletal structures: The skeletal structures are osteopenic. Moderate lumbosacral spondylosis is obse rved. No lytic or blastic lesions are seen. IMPRESSION: 1. There are no acute infectious or inflammatory findings in the abdomen or pelvis noting a motion co mpromised examination. 2. Marked prostatomegaly with evidence of chronic bladder outlet obstruction. 3. Additional findings as above. ACT 112: Negative or not required by law. Electronically signed by: Mir Cantu M.D. 11/14/2019 7:47 AM
--- NOTE | 2019-11-14 08:05 | XRay Report ---
XR chest 1V portable CLINICAL HISTORY: Shortness of breath, tachycardia dyspnea COMPARISON STUDY: 09/11/2019 FINDINGS: The bones soft tissues and hemidiaphragms are normal. The cardiomediastinal silhouette is n ormal. The lungs are clear. The pulmonary vasculature is normal. IMPRESSION: Negative chest. ACT 112: Negative or not required by law. The above report was generated using voice recognition software. It may contain grammatical, syntax or spelling errors. Electronically signed by: Masood Asencio M.D. 11/14/2019 8:04 AM
[2019-11-14 08:19] LABS: Appearance Urine Clear (Clear); Bilirubin Urine Negative (Negative); Blood Urine Negative (Negative); Color Urine Yellow; Glucose Urine UA Negative (Negative); Ketones Urine Negative (Negative); Leukocyte Esterase Urine Negative (Negative); Nitrite Urine Negative (Negative); Protein Urine Negative (Negative); Specific Gravity Urine 1.016 (1.000-1.030); Urobilinogen Urine Negative (Negative)
--- NOTE | 2019-11-14 09:42 | History & Physical Report ---
Date of Service November 14, 2019 Assessment & Plan (1) SIRS (systemic inflammatory response syndrome): (2) Abdominal pain: (3) Nausea & vomiting: (4) Dehydration: Patient with elevated WBC count to 21 and tachycardia on admission- meets criteria for SIRS. Unclear source if infectious cause. Patient recently had PEG tube removed. Incision has mild serous drainage and odor- will culture. Blood cultures & Lactic acid ordered. Lactic acid normal. Blood cultures pending UA unremarkable. Continue broad spectrum coverage with Zosyn. Potential sources include lungs- ? aspiration with recent PEG removal, abdominal incision- will wait for surface culture results, or other Check procalcitonin as well Consult GI with recent PEG removal, abdominal pain, SIRS Recheck CBC & BMP in AM Admit to Tele for further monitoring Continue NSS (5) HTN (hypertension): (6) Elevated troponin: BP elevated in ED. Continue to monitor. Unclear cardiac history. Continue to monitor HR and BP closely. Continue Coumadin and Metoprolol Consider Cardiology consultation if needed Trend Troponin Recheck INR as planned outpatient on Sunday (7) History of multiple strokes: (8) Dysphagia as late effect of cerebrovascular accident (CVA): (9) Dysarthria as late effect of cerebrovascular accident (CVA): With history of dysarthria and recent history of dysphagia with PEG tube placement, request formal speech eval. Dysphagia screen Diet with pureed foods and also carb consistent due to DM (10) Diabetes mellitus, type 2: Chronic use of insulin. Insulin protocol while inpatient. Last A1C 7.1- 07/10 Recheck A1C in AM (11) DVT prophylaxis: On Coumadin- continue. History of Present Illness Chief Complaint: Weakness, Abdominal pain Primary Care Provider: Tamie Lueng Patient is an 83 yo male with history of CVA x 2 with chronic dysarthria and RUE mild weakness/dysfunction, HTN, hyperlipidemia, Type 2 DM on long term care phlebotomist insulin, and recent history of a PEG tube removal. He presented to the ED due to an episode of weakness and abdominal pain this morning. He was trying to get out of bed this morning and couldnt get up by himself which is very unlike him. He lives alone. He had a normal BM when he was able to get up. He then started having severe b/l lower abdominal pain. The pain persisted for a short time and now has subsided. He has no abdominal pain currently. When he went for his CT scan, he had nausea and vomiting x 1. No other N/V/D at home. He denies lightheadedness, dizziness, sweats, chills, fever, GORDON, SOB, chest pain, urinary symptoms, or peripheral edema. No rashes or joint pain out of the ordinary. The patient has had problems with aspiration and swallowing since his last stroke. He had a PEG tube placed during his hospitalization for his stroke due to aspiration problems. This was removed 2 weeks ago because patient has been doing well with drinking liquids and a mostly pureed diet at home. He states that he has been eating and drinking well. He recently has been undergoing cardiac workup outpatient. Uncertain who he is seeing. He had a monitor on for 2 weeks as an outpatient but has no results from that yet. He was previously on Xa relto and has been transitioned to Coumadin. He just finished Lovenox injections yesterday. INR today is therapeutic. He was tachycardic with a junctional rhythm upon presentation, but with fluids, his rhythm returned to NSR. Since presentation, the patients workup showed elevated WBC count of 21 with neutrophil predominance. Lactic acid normal. CT abd/pelvis and CXR unremarkable for acute process. CT abd/pelvis showed prostamegaly with signs of chronic bladder outlet obstruction, but UA was unrevealing as well. Troponin slightly elevated. Of note, patient was recently admitted to [facility] in August 2019 as well for sepsis. At that time, he was found to have UTI with pseudomonas and was d/cd on Cipro. Allergies Allergy/AdvReac Type Severity Reaction Status Date / Time No Known Allergies Allergy Verified 11/14/19 07:16 Home Medications Home Medications Medication Instructions Recorded Confirmed Type insulin aspart U-100 100 unit/mL See Rx Instructions .ROUTE .COMPLEX 05/30/19 11/14/19 History subcutaneous cartridge cholecalciferol (vitamin D3) 1,000 unit PO QDD 08/04/19 11/14/19 History [Vitamin D3] metoprolol tartrate 25 mg PO BIDM 08/04/19 11/14/19 History docusate sodium [Colace] 100 mg PO QAM 09/11/19 11/14/19 History Lantus Solostar U-100 Insulin 18 units SQ HS 10/23/19 11/14/19 History albuterol sulfate 1 puff INHALATION QID PRN 10/23/19 11/14/19 History albuterol sulfate 2.5 mg INHALATION QID PRN 10/23/19 11/14/19 History sennosides [senna] 8.6 mg PO QAM 10/23/19 11/14/19 History atorvastatin 10 mg PO QAM 11/14/19 11/14/19 History enoxaparin [Lovenox] 0 mg SUBCUT UD 11/14/19 11/14/19 History warfarin 0 mg PO QDD 11/14/19 11/14/19 History Past Med/Surg History Medical History Asthma inhaler/nebulizer prn Atrial fibrillation on xarelto BPH (benign prostatic hyperplasia) Chronic pansinusitis Diabetes mellitus, type 2 Dysarthria Dysphagia as late effect of cerebrovascular accident (CVA) has improved Gout Hearing deficit History of stomach cancer 2017--sx Hyperlipidemia Hypertension Nasal polyposis difficultly breathing through nose Stroke 01/20/2019--difficulty swallowing/speech slurred/lost ability to use right hand--[place] with [place]. Jerri [place] [facility] [place] Transient ischemic attack (TIA) 07/2018--no lasting deficits from that mini stroke Surgical History History of abdominal surgery removal of stomach cancer mass History of appendectomy History of bilateral cataract extraction History of esophagogastroduodenoscopy (EGD) History of gastric restrictive surgery History of nasal polypectomy History of prostate surgery History of tooth extraction most teeth removed Status post insertion of percutaneous endoscopic gastrostomy (PEG) tube Family History Brother Family history of diabetes mellitus Other No family history of adverse response to anesthesia No family history of bleeding disorder Social History Preferred Language: Italian Communication Ability: Effective Curing Supervisor Required: No Beliefs That Will Affect Care: None Current Living Situation: Other Current Living Situation Comment: [facility] [address] current occupational status: retired Other Information That Helps Us Care for You: No Feels Safe at Home: Yes Safety Concerns: Feels Safe At This Time Smoking Status: Never smoker Do You Dip or Chew Tobacco: No ; Second Hand Exposure: No ; Tobacco Cessation Education Requested by Patient: No Hx Alcohol Use: No Hx Substance Use: No Review of Systems Review of Systems: All systems reviewed & are unremarkable except as noted in HPI & below Physical Exam Constitutional: well developed and well nourished; no acute distress Eyes: PERRL, conjunctivae normal, anicteric sclerae ENMT: external ear and nose normal, oropharynx normal Neck: trachea midline, no thyromegaly Respiratory: normal respiratory effort; no respiratory distress Auscultation: + wheezes (mild wheezing throughout. Most pronounced in B/L LL) Cardiovascular: Rate/Rhythm: regular rhythm and + tachycardic Gastrointestinal (Abdomen): Inspection/Auscultation: normal bowel sounds; abdomen not distended Percussion/Palpation: + abdomen tender (Mild LLQ tenderness.) Musculoskeletal: Head/Neck/Chest: normocephalic and head atraumatic Skin: no rashes, warm and dry Note healing incisions of the abdomen where PEG was removed. The umbilical incision has a slight odor but no purulent or bloody drainage. Mild serous type drainage. Neurologic: CN's II-XI intact bilaterally Speech / Cognition: + abnormal speech (Dysarthria chronic from stroke per patient ) Motor/Sensory: no tremor Note mild weakness of the RUE compared to LUE to testing. Chronic per patient. Results & Data Results & Data ([facility]) Vital Signs (Past 12 Hours) Vital Signs Temp Pulse Resp BP Pulse Ox 11/14/19 09:04 110 H 18 136/67 98 11/14/19 07:32 111 H 19 97 11/14/19 07:31 107 H 21 157/85 H 11/14/19 07:00 107 H 21 91 11/14/19 06:39 37.1 C 123 H 22 104/74 92 11/14/19 06:37 122 H 18 93 11/14/19 06:33 122 H 18 104/74 92 Laboratory Results Laboratory Results - last 24 hr 11/14/19 11/14/19 11/14/19 06:35 06:35 06:35 WBC 21.39 H RBC 4.92 Hgb 13.5 L Hct 43.0 MCV 87.4 MCH 27.4 MCHC 31.4 L RDW Std Deviation 46.0 RDW Coeff of Mainor 14.3 Plt Count 247 MPV 10.0 Immature Gran % (Auto) 0.2 Neut % (Auto) 84.3 Lymph % (Auto) 7.7 [place] % (Auto) 6.8 Eos % (Auto) 1.0 Baso % (Auto) 0.0 Neut # (Auto) 18.02 H Lymph # (Auto) 1.64 [place] # (Auto) 1.45 H Eos # (Auto) 0.22 Baso # (Auto) 0.01 Immature Gran # (Auto) 0.05 H PT 23.4 H INR 2.3 H APTT 38.2 H PTT Ratio 1.4 Sodium 142 Potassium 3.8 Chloride 107 Carbon Dioxide 29 Anion Gap 6.0 BUN 18 Creatinine 1.06 Est Cr Clr Drug Dosing 56.1 Est GFR ( Amer) 74.9 Est GFR (Non-Af Amer) 64.6 BUN/Creatinine Ratio 16.7 Glucose 178 H Lactate Calcium 8.7 Total Bilirubin 0.6 AST 16 ALT 36 Alkaline Phosphatase 49 Troponin I 0.075 H* Total Protein 7.0 Albumin 3.4 Globulin 3.6 Albumin/Globulin Ratio 0.9 Lipase 74 Urine Color Urine Appearance Urine pH Ur Specific [place] Urine Protein Urine Glucose (UA) Urine Ketones Urine Blood Urine Nitrite Urine Bilirubin Urine Urobilinogen Ur Leukocyte Esterase 11/14/19 11/14/19 07:44 09:13 WBC RBC Hgb Hct MCV MCH MCHC RDW Std Deviation RDW Coeff of Mainor Plt Count MPV Immature Gran % (Auto) Neut % (Auto) Lymph % (Auto) [place] % (Auto) Eos % (Auto) Baso % (Auto) Neut # (Auto) Lymph # (Auto) [place] # (Auto) Eos # (Auto) Baso # (Auto) Immature Gran # (Auto) PT INR APTT PTT Ratio Sodium Potassium Chloride Carbon Dioxide Anion Gap BUN Creatinine Est Cr Clr Drug Dosing Est GFR ( Amer) Est GFR (Non-Af Amer) BUN/Creatinine Ratio Glucose Lactate 1.7 Calcium Total Bilirubin AST ALT Alkaline Phosphatase Troponin I Total Protein Albumin Globulin Albumin/Globulin Ratio Lipase Urine Color Yellow Urine Appearance Clear Urine pH 8.0 H Ur Specific [place] 1.016 Urine Protein Negative Urine Glucose (UA) Negative Urine Ketones Negative Urine Blood Negative Urine Nitrite Negative Urine Bilirubin Negative Urine Urobilinogen Negative Ur Leukocyte Esterase Negative Diagnostic Findings CXR: IMPRESSION: Negative chest. CT Abd/Pelvis: IMPRESSION: 1. There are no acute infectious or inflammatory findings in the abdomen or pelvis noting a motion compromised examination. 2. Marked prostatomegaly with evidence of chronic bladder outlet obstruction. 3. Additional findings as above. Code Status & VTE Plan VTE Prophylaxis Plan VTE Prophylaxis will be ordered: No Supervising Physician Co-Signing Physician Notes I, Dr. Joshua Pradhan, have seen and examined the patient with physician records assistant and agree with the assessment and plans as above and would like to comment that on exam General/Neuro: no acute distress, some dysarthria that appears to be residual fr om patient's history of stroke in the past Lungs: expiratory wheezes on exhalation of right upper posterior lung rolle, chest x ray is unremarkable Heart: regular rate by the time of being on medical [place] Abdomen: no purulent drainage from old site of PEG tube. abdomen is soft and nontender Assessment and plan -patient presents for weakness and by history with episode of abdomen pain. his labs are remarkable for leukocytosis of 20,000 plus. He says that he has history of elevated white blood cell counts in the past but he did have normalized white blood cells under 10,000 in August. no acute findings on CT abdomen. patient appears to be tolerating the diet but by his history of relatively recent PEG tube removal, I question if patient has leukocytosis from dehydration and giving IV fluids, are also covering for possible bacterial infection as cause of leukocytosis and so will continue broad spectrum antibiotics for now. monitor the WBC and follow the blood cultures. -no complaints of acute abdomen currently, he is eating the puree diet -expiratory wheeze of right upper extremity is unspecific, consider CXR in 11/15/2019 -agree with other assessment and plans as documented by physician records assistant (1) Nausea & vomiting Vomiting Intractability: non-intractable Vomiting type: unspecified Qualified Code(s): R11.2 - Nausea with vomiting, unspecified
[2019-11-14] MEDS ORDERED: PNEUMOCOCCAL POLYSACCHARIDES 25 MCG/0.5 ML VIAL/SYR IM ONE (11:49)
[2019-11-14] MEDS ORDERED: PNEUMOCOCCAL ADMINISTRATION CHARGE ONE (11:49)
[2019-11-14] MEDS ORDERED: ACETAMINOPHEN 325 MG TAB PO PRN (12:00)
[2019-11-14] MEDS ORDERED: GLUCAGON FOR INJ 1 MG VIAL SQ PRN (12:00)
[2019-11-14] MEDS ORDERED: DEXTROSE 50% 50 ML SYRINGE IV PRN (12:00)
[2019-11-14] MEDS ORDERED: GLUCOSE 40% GEL 15 GM TUBE PO PRN (12:00)
[2019-11-14] MEDS ORDERED: CARBOHYDRATES FOR HYPOGLYCEMIA PO PRN (12:00)
[2019-11-14] MEDS ORDERED: GLUCOSE 10 TABS/TUBE PO PRN (12:00)
[2019-11-14] MEDS: SODIUM CHLORIDE 0.9% 1000ML 1,000 ML IV SCH (12:42)
[2019-11-14] MEDS: INSULIN ASPART 100 UNITS/ML 3 ML PEN SC SCH ×3 (13:12→21:39)
[2019-11-14] MEDS: PIPERACILLIN/TAZOBACTAM 3.375 GM in DEXTROSE 5% 100 ML IV SCH ×2 (13:12→22:39)
--- NOTE | 2019-11-14 15:45 | Electrocardiogram Report ---
Test Reason : Blood Pressure : / mmHG Vent. Rate : 122 BPM Atrial Rate : 122 BPM P-R Int : 000 ms QRS Dur : 082 ms QT Int : 330 ms P-R-T Axes : 000 060 056 degrees QTc Int : 470 ms Accelerated Junctional rhythm with retrograde conduction Inferior infarct (cited on or before 12-SEP-2019) Abnormal ECG When compared with ECG of 12-SEP-2019 09:50, Significant changes have occurred Confirmed by Bong Lima ([id number]) on 11/14/2019 3:45:04 PM Referred By: REFERRED SELF Confirmed By:Bong Lima
[2019-11-14] MEDS ORDERED: WARFARIN SOD 7.5 MG TAB PO SCH (16:00)
--- NOTE | 2019-11-14 16:01 | Gastrointestinal Consultation ---
Date of Consultation November 14, 2019 Assessment & Plan (1) Abdominal pain: resolved (2) Sepsis: PEG tube site examined, clean, dry and intact. nontender and nonerythematous, no evidence of discharge. abdominal exam is benign. In light of this and a normal CT A/P, highly unlikely there is any abdominal source of infection. Given previous hx of UTI sepsis in August 2019 and prostatomegaly with outlet obstruction, it's far more likely there is a urinary tract or other source of inection. Recs: --agree with broad spectrum abx, f/u bcx's. would obtain a urine culture as well --no intervention from a GI perspective is indicated will sign off at this time, recall as needed History of Present Illness Attending Physician: Joshua Pradhan MD 83 yo male here for weakness. GI consulted for abdominal pains. Patient notes having abdominal pains this morning but currently feels well and denies any issues. Had PEG tube removed 2 weeks ago without any issue. Of note he was h ospitalized for UTI sepsis in August 2019. CT A/P this admission showed prostate enlargement with some outlet obstruction but otherwise unremarkable. CXR unremarkable. afebrile, VSS. Otherwise no significant sx's. labs reviewed, leukocytosis noted. Allergies Allergy/AdvReac Type Severity Reaction Status Date / Time No Known Allergies Allergy Verified 11/14/19 07:16 Home Medications Home Medications Medication Instructions Recorded Confirmed Type insulin aspart U-100 100 unit/mL See Rx Instructions .ROUTE .COMPLEX 05/30/19 11/14/19 History subcutaneous cartridge cholecalciferol (vitamin D3) 1,000 unit PO QDD 08/04/19 11/14/19 History [Vitamin D3] metoprolol tartrate 25 mg PO BIDM 08/04/19 11/14/19 History docusate sodium [Colace] 100 mg PO QAM 09/11/19 11/14/19 History Lantus Solostar U-100 Insulin 18 units SQ HS 10/23/19 11/14/19 History albuterol sulfate 1 puff INHALATION QID PRN 10/23/19 11/14/19 History albuterol sulfate 2.5 mg INHALATION QID PRN 10/23/19 11/14/19 History sennosides [senna] 8.6 mg PO QAM 10/23/19 11/14/19 History atorvastatin 10 mg PO QAM 11/14/19 11/14/19 History enoxaparin [Lovenox] 0 mg SUBCUT UD 11/14/19 11/14/19 History warfarin 0 mg PO QDD 11/14/19 11/14/19 History Patient History Medical History Asthma inhaler/nebulizer prn Atrial fibrillation on xarelto BPH (benign prostatic hyperplasia) Chronic pansinusitis Diabetes mellitus, type 2 Dysarthria Dysphagia as late effect of cerebrovascular accident (CVA) has improved Gout Hearing deficit History of stomach cancer 2017--sx Hyperlipidemia Hypertension Nasal polyposis difficultly breathing through nose Stroke 01/20/2019--difficulty swallowing/speech slurred/lost ability to use right hand--follows with Dr. Jerri Hayden @ [facility] [place] Transient ischemic attack (TIA) 07/2018--no lasting deficits from that mini stroke Surgical History History of abdominal surgery removal of stomach cancer mass History of appendectomy History of bilateral cataract extraction History of esophagogastroduodenoscopy (EGD) History of gastric restrictive surgery History of nasal polypectomy History of prostate surgery History of tooth extraction most teeth removed Status post insertion of percutaneous endoscopic gastrostomy (PEG) tube Family History Brother Family history of diabetes mellitus Other No family history of adverse response to anesthesia No family history of bleeding disorder Social History Preferred Language: British Communication Ability: Effective Chemist Helper Required: No Beliefs That Will Affect Care: None Current Living Situation: Other Current Living Situation Comment: [facility] current occupational status: retired Other Information That Helps Us Care for You: No Feels Safe at Home: Yes Safety Concerns: Feels Safe At This Time Smoking Status: Never smoker Do You Dip or Chew Tobacco: No ; Second Hand Exposure: No ; Tobacco Cessation Education Requested by Patient: No Hx Alcohol Use: No Hx Substance Use: No Review of Systems Constitutional: no fever, no chills and no weight loss Eyes: as per Subjective / HPI Ear, Nose, Mouth, Throat: as per Subjective / HPI Respiratory: no dyspnea and no dyspnea on exertion Cardiovascular: no chest pain and no palpitations Gastrointestinal: as per Subjective / HPI Musculoskeletal: no joint pain and no swelling Integumentary: no rash and no lesions Neurologic: no numbness and no paresthesia Psychiatric: no depression and no anxiety Endocrine: no fatigue Hematologic / Lymphatic: no easy bleeding and no easy bruising Physical Exam Constitutional: WD/WN, vitals as above Eyes: EOM intact bilaterally Neck: normal visual inspection Respiratory: normal respiratory effort, lungs clear to auscultation Cardiovascular: RRR, no murmur, no edema Gastrointestinal (Abdomen): Inspection/Auscultation: abdomen normal to inspection; abdomen not distended Percussion/Palpation: abdomen soft; abdomen nontender and no hepatosplenomegaly Musculoskeletal: Extremities: no cyanosis Gait: normal gait Skin: no rashes, warm and dry Neurologic: moves all extremities Psychiatric: A+Ox3, euthymic affect Results & Data ([facility]) Vital Signs (Past 12 Hours) Vital Signs Temp Pulse Pulse Resp BP BP Pulse Ox 11/14/19 11:40 80 11/14/19 11:22 36.5 C 88 18 101/64 94 11/14/19 09:30 105 H 15 123/67 91 11/14/19 09:04 110 H 18 136/67 98 11/14/19 09:03 114 H 16 136/67 92 11/14/19 09:00 112 H 24 94 11/14/19 08:31 105 H 18 93 11/14/19 08:30 106 H 18 126/65 93 11/14/19 08:00 107 H 19 124/68 92 11/14/19 07:32 111 H 19 97 11/14/19 07:31 107 H 21 157/85 H 11/14/19 07:00 107 H 21 91 11/14/19 06:39 37.1 C 123 H 22 104/74 92 11/14/19 06:37 122 H 18 93 11/14/19 06:33 122 H 18 104/74 92 PG Care Time/CCT Total # of Minutes Spent Total Time Spent with Patient: Total time spent is greater than 50% in coordination of care (as documented) at patient's floor/unit and/or counseling patient: Coding Level of Care Code 86625 Initial Inpt Care Lvl 3 Diagnoses Abdominal pain R10.9 Sepsis A41.9
[2019-11-14] MEDS: METOPROLOL TARTRATE 25 MG TAB PO SCH (18:20)
[2019-11-14] MEDS ORDERED: INSULIN GLARGINE SOLOSTAR 100 UNITS/ML 3 ML PEN SC SCH (21:00)
[2019-11-15 05:42] LABS: Hematocrit (blood only) 39.6 % (42-52); Hemoglobin 12.3 g/dL (14.0-18.0); Mean Corpuscular Hemoglobin 27.5 pg (25-34); Mean Corpuscular Hgb Conc 31.1 g/dL (32-36); Mean Corpuscular Volume 88.4 fL (80-100); Mean Platelet Volume 10.1 fL (7.4-10.4); Platelet Count 229 K/uL (130-400); RDW Coefficient of Variation 14.7 % (11.5-14.5); RDW Standard Deviation 47.9 fL (36.4-46.3); Red Blood Count 4.48 M/uL (4.7-6.1); White Blood Count 18.17 K/uL (4.8-10.8)
[2019-11-15] MEDS: PIPERACILLIN/TAZOBACTAM 3.375 GM in DEXTROSE 5% 100 ML IV SCH ×3 (05:42→21:06)
[2019-11-15] MEDS: SODIUM CHLORIDE 0.9% 1000ML 1,000 ML IV SCH ×2 (05:43→15:50)
[2019-11-15 06:11] LABS: Albumin Level 2.9 gm/dl (3.4-5.0); BUN Creatinine Ratio 14.6 (10-20); Calcium 8.4 mg/dl (8.5-10.1); Creatinine Clr Calc Pharmacy 54.3 ml/min; Est GFR (African American) 75.2; Est GFR (Non-African American) 64.9; Potassium 3.9 mmol/L (3.5-5.1)
[2019-11-15 06:14] LABS: Albumin Globulin Ratio 0.9 (0.9-2); Bilirubin,Total 0.8 mg/dl (0.2-1); Globulin 3.4 gm/dl (2.5-4.0); Total Protein 6.3 gm/dl (6.4-8.2)
[2019-11-15 07:13] LABS: Estimated Average Glucose 160 mg/dl; Hemoglobin A1C 7.2 % (4.5-5.6)
[2019-11-15] MEDS: ATORVASTATIN 10 MG TAB PO SCH (08:06)
[2019-11-15] MEDS: METOPROLOL TARTRATE 25 MG TAB PO SCH ×2 (08:06→16:56)
[2019-11-15] MEDS: INSULIN ASPART 100 UNITS/ML 3 ML PEN SC SCH ×4 (08:10→20:18)
--- NOTE | 2019-11-15 09:16 | Hospitalist Progress Note ---
Date of Service November 15, 2019 Assessment & Plan (1) SIRS (systemic inflammatory response syndrome): -11/14/2019 patient presents for weakness and by history with episode of abdomen pain. his main complaint was that he felt weak at home and fell on to his bed. his admission labs are remarkable for leukocytosis of 21,000 - there was concern of SIRS.He says that he has history of elevated white blood cell counts in the past but he did have normalized white blood cells under 10,000 in August. normal admission urine analysis. he denies dsyuria. he had admission blood cultures draw and started on Zosyn. He had previously had PEG tube in the past with PEG tube removal. no acute findings on CT abdomen. patient appears to be tolerating the diet. no other complaints of abdomen discomfort as the day progress. -11/15/2019 so far in the hospital stay patient continues to be afebrile.no acute telemetry events other than sinus with 1st degree block. patient's white blood cells remain elevated as 18,000. admission blood cultures so far has not returned results yet. Continue Zosyn IV with gentle IV fluids and telemetry monitoring, evaluation by PT/OT (2) Abdominal pain: appears resolved (3) Nausea & vomiting: appears resolved (4) Dehydration: on IV fluids 60 cc/hr (5) HTN (hypertension): -on metoprolol (6) History of multiple strokes: (7) Dysphagia as late effect of cerebrovascular accident (CVA): (8) Dysarthria as late effect of cerebrovascular accident (CVA): Anticoagulated by coumadin anticoagulation -This is a patient with history of stroke with residual dysarthria and also had history of dysphagia which required nutrition in the past with PEG tube -on this admission he no longer has PEG tube although there are residual PEG tube scar the area of the previous PEG tube was swabbed and sent for microbiology but patient denied recent purulent drainage from former PEG site -Dysphagia screen passed in the hospital and patient on diet with pureed foods and also carb consistent due to DM -CXR to be repeated on 11/15/2019 in the leukocytosis workup -because of his stroke in the past, patient has been on coumadin for stroke prophylaxis and on admission with therapeutic INR of 2.6 (9) Elevated troponin: -history of elevated troponins in the past, on this admission he had troponin levels of 0.075, 0.074, 0.062 but no chest pain -no Coumadin and Metoprolol -11/15/2019: No fevers overnight, no acute telemetry events other than sinus with 1st degree block. patient's white blood cells remain elevated as 18,000. admission blood cultures so far has not returned results yet. Patient agrees to stay for IV antibiotics and evaluation by PT/OT (10) Diabetes mellitus, type 2: Type 2 diabetes mellitus with snf current use of insulin. Last A1C 7.21 June 2019 HbA1c 7.2 on this admission -reducing Lantus on 11/15/2019 to avoid hypoglycemia (11) DVT prophylaxis: On Coumadin- continue. Admission and Anticipated Discharge Date Admission Date: November 14, 2019 Subjective No fevers overnight, no acute telemetry events other than sinus with 1st degree block. patient's white blood cells remain elevated as 18,000. admission blood cultures so far has not returned results yet. Patient agrees to stay for IV antibiotics and evaluation by PT/OT no dizziness. no headache. no chest pain. no shortness of breath. no abdomen pain. no nausea. no vomiting Review of Systems Review of Systems: All systems reviewed & are unremarkable except as noted in Subjective Physical Exam Constitutional: comfortable Eyes: PERRL, conjunctivae normal, anicteric sclerae EOM intact bilaterally ENMT: external ear and nose normal, oropharynx normal Neck: normal visual inspection Respiratory: normal respiratory effort Cardiovascular: Rate/Rhythm: regular rate Gastrointestinal (Abdomen): normal bowel sounds, soft, nontender, no hepatosplenomegaly Neurologic: CN's II-XI intact bilaterally (baseline dysarthria) Psychiatric: A+Ox3, euthymic affect Results & Data Results & Data ([facility]) Vital Signs (Past 12 Hours) Vital Signs Temp Pulse Resp BP BP Pulse Ox 11/15/19 07:56 36.6 C 72 20 134/73 94 11/15/19 04:12 36.7 C 70 18 127/72 93 11/15/19 00:30 36.7 C 74 16 126/57 L 93 (1) Nausea & vomiting Vomiting Intractability: non-intractable Vomiting type: unspecified Qualified Code(s): R11.2 - Nausea with vomiting, unspecified
--- NOTE | 2019-11-15 09:40 | XRay Report ---
XR chest 2V PA/lateral CLINICAL HISTORY: follow if lunf infiltrates COMPARISON STUDY: 11/14/2019 FINDINGS: Lungs are considered clear. Slight basilar interstitial prominence most likely chronic. The upper lungs are clear. IMPRESSION: Minimal chronic interstitial basilar prominence. The lungs are considered clear time at this time. ACT 112: Negative or not required by law. The above report was generated using voice recognition software. It may contain grammatical, syntax or spelling errors. Electronically signed by: Masood Asencio M.D. 11/15/2019 9:39 AM
[2019-11-15] MEDS ORDERED: ACETAMINOPHEN 325 MG TAB PO PRN (10:56)
[2019-11-15] MEDS ORDERED: WARFARIN SOD 5 MG TAB PO SCH (16:00)
[2019-11-15] MEDS: INSULIN GLARGINE SOLOSTAR 100 UNITS/ML 3 ML PEN SC SCH (20:18)
[2019-11-16] MEDS: PIPERACILLIN/TAZOBACTAM 3.375 GM in DEXTROSE 5% 100 ML IV SCH ×3 (05:39→21:23)
[2019-11-16 07:12] LABS: Basophils # (auto) 0.02 K/uL (0-0.2); Basophils % (auto) 0.2 %; Eosinophils # (auto) 0.31 K/uL (0-0.5); Eosinophils % (auto) 2.6 %; Hematocrit (blood only) 39.7 % (42-52); Hemoglobin 12.6 g/dL (14.0-18.0); Immature Granulocytes # (auto) 0.03 K/uL (0.00-0.02); Immature Granulocytes % (auto) 0.2 %; Lymphocytes # (auto) 2.48 K/uL (1.2-3.4); Lymphocytes % (auto) 20.4 %; Mean Corpuscular Hgb Conc 31.7 g/dL (32-36); Mean Corpuscular Volume 88.2 fL (80-100); Mean Platelet Volume 10.1 fL (7.4-10.4); Monocytes # (auto) 1.34 K/uL (0.11-0.59); Neutrophils # (auto) 7.97 K/uL (1.4-6.5); Neutrophils % (auto) 65.6 %; Platelet Count 224 K/uL (130-400); RDW Coefficient of Variation 14.4 % (11.5-14.5); RDW Standard Deviation 46.9 fL (36.4-46.3); White Blood Count 12.15 K/uL (4.8-10.8)
[2019-11-16 07:20] LABS: Prothrombin Time 29.9 Seconds (9.0-12.0)
[2019-11-16 07:42] LABS: BUN Creatinine Ratio 14.8 (10-20); Calcium 8.4 mg/dl (8.5-10.1); Creatinine Clr Calc Pharmacy 62.6 ml/min; Est GFR (African American) 87.1; Est GFR (Non-African American) 75.1; Potassium 3.7 mmol/L (3.5-5.1)
[2019-11-16] MEDS: METOPROLOL TARTRATE 25 MG TAB PO SCH ×2 (08:11→17:33)
[2019-11-16] MEDS: ATORVASTATIN 10 MG TAB PO SCH (08:12)
[2019-11-16] MEDS: INSULIN ASPART 100 UNITS/ML 3 ML PEN SC SCH ×4 (08:13→21:25)
[2019-11-16] MEDS: SODIUM CHLORIDE 0.9% 1000ML 1,000 ML IV SCH (08:19)
[2019-11-16] MEDS: POLYETHYLENE (MIRALAX) 17 GM PACK PO PRN (08:19)
--- NOTE | 2019-11-16 12:35 | Hospitalist Progress Note ---
Date of Service November 16, 2019 Assessment & Plan (1) SIRS (systemic inflammatory response syndrome): -11/14/2019 patient presents for weakness and by history with episode of abdomen pain. his main complaint was that he felt weak at home and fell on to his bed. his admission labs are remarkable for leukocytosis of 21,000 - there was concern of SIRS.He says that he has history of elevated white blood cell counts in the past but he did have normalized white blood cells under 10,000 in August. normal admission urine analysis. he denies dsyuria. he had admission blood cultures draw and started on Zosyn. He had previously had PEG tube in the past with PEG tube removal. no acute findings on CT abdomen. patient appears to be tolerating the diet. no other complaints of abdomen discomfort as the day progress. -11/15/2019 so far in the hospital stay patient continues to be afebrile.no acute telemetry events other than sinus with 1st degree block. patient's white blood cells remain elevated as 18,000. Continue Zosyn IV with gentle IV fluids and telemetry monitoring, evaluation by PT/OT suggested possible benefits of home health services when ready for discharge -11/16/2019: WBC down to 12,000. blood cultures with no growth to date, had discussed with patient and daughter Shala [phone] that goal is to continue IV antibiotics and IV fluids for now to see if white blood cell counts continue to downtrend further (2) Abdominal pain: appears resolved (3) Nausea & vomiting: appears resolved (4) Dehydration: on IV fluids 60 cc/hr (5) HTN (hypertension): -on metoprolol (6) History of multiple strokes: (7) Dysphagia as late effect of cerebrovascular accident (CVA): (8) Dysarthria as late effect of cerebrovascular accident (CVA): Anticoagulated by coumadin anticoagulation -This is a patient with history of stroke with residual dysarthria and also had history of dysphagia which required nutrition in the past with PEG tube -on this admission he no longer has PEG tube although there are residual PEG tube scar the area of the previous PEG tube was swabbed and sent for microbiology but patient denied recent purulent drainage from former PEG site -Dysphagia screen passed in the hospital and patient on diet with pureed foods and also carb consistent due to DM -CXR to be repeated on 11/15/2019 in the leukocytosis workup -because of his stroke in the past, patient has been on coumadin for stroke prophylaxis and on admission with therapeutic INR of 2.6 -INR is 3 on 11/16/2019; hold home dose coumadin for now (9) Elevated troponin: -history of elevated troponins in the past, on this admission he had troponin levels of 0.075, 0.074, 0.062 but no chest pain -no Coumadin and Metoprolol -11/15/2019: No fevers overnight, no acute telemetry events other than sinus with 1st degree block. patient's white blood cells remain elevated as 18,000. admission blood cultures so far has not returned results yet. 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 Last A1C 7.21 June 2019 HbA1c 7.2 on this admission -reducing Lantus on 11/15/2019 to avoid hypoglycemia (11) DVT prophylaxis: therapeutic INR Admission and Anticipated Discharge Date Admission Date: November 14, 2019 Subjective WBC down to 12,000. blood cultures with no growth to date, had discussed with patient and daughter Shala [phone] that goal is to continue IV antibiotics and IV fluids for now to see if white blood cell counts continue to downtrend further baseline dysarthia. no chest pain. no palpitations. no dizziness. no headache. no nausea. no vomiting. Review of Systems Review of Systems: All systems reviewed & are unremarkable except as noted in Subjective Physical Exam Constitutional: comfortable Eyes: PERRL, conjunctivae normal, anicteric sclerae EOM intact bilaterally ENMT: external ear and nose normal, oropharynx normal Neck: normal visual inspection Respiratory: normal respiratory effort Cardiovascular: Rate/Rhythm: regular rate Gastrointestinal (Abdomen): normal bowel sounds, soft, nontender, no hepatosplenomegaly Musculoskeletal: Head/Neck/Chest: normocephalic and head atraumatic Neurologic: CN's II-XI intact bilaterally (baseline dysarthria) Psychiatric: A+Ox3, euthymic affect Results & Data Results & [facility] ([facility]) Vital Signs (Past 12 Hours) Vital Signs Temp Pulse Pulse Resp BP Pulse Ox 11/16/19 07:46 36.7 C 70 16 148/79 H 96 11/16/19 07:25 61 11/16/19 03:45 36.5 C 73 20 156/82 H 96 (1) Nausea & vomiting Vomiting Intractability: non-intractable Vomiting type: unspecified Qualified Code(s): R11.2 - Nausea with vomiting, unspecified
[2019-11-16] MEDS: INSULIN GLARGINE SOLOSTAR 100 UNITS/ML 3 ML PEN SC SCH (21:24)
[2019-11-17] MEDS: SODIUM CHLORIDE 0.9% 1000ML 1,000 ML IV SCH
[2019-11-17] MEDS: PIPERACILLIN/TAZOBACTAM 3.375 GM in DEXTROSE 5% 100 ML IV SCH ×2 (04:57→13:53)
[2019-11-17 07:30] LABS: Basophils # (auto) 0.03 K/uL (0-0.2); Basophils % (auto) 0.3 %; Eosinophils # (auto) 0.42 K/uL (0-0.5); Eosinophils % (auto) 3.9 %; Hematocrit (blood only) 42.9 % (42-52); Hemoglobin 13.8 g/dL (14.0-18.0); Immature Granulocytes # (auto) 0.02 K/uL (0.00-0.02); Immature Granulocytes % (auto) 0.2 %; Lymphocytes % (auto) 27.2 %; Mean Corpuscular Hemoglobin 28.3 pg (25-34); Mean Corpuscular Hgb Conc 32.2 g/dL (32-36); Mean Corpuscular Volume 87.9 fL (80-100); Mean Platelet Volume 9.9 fL (7.4-10.4); Monocytes # (auto) 0.89 K/uL (0.11-0.59); Monocytes % (auto) 8.4 %; Neutrophils # (auto) 6.39 K/uL (1.4-6.5); Platelet Count 265 K/uL (130-400); RDW Coefficient of Variation 14.3 % (11.5-14.5); RDW Standard Deviation 46.1 fL (36.4-46.3); Red Blood Count 4.88 M/uL (4.7-6.1); White Blood Count 10.65 K/uL (4.8-10.8)
[2019-11-17 07:39] LABS: INR 2.4 (0.9-1.1); Prothrombin Time 24.4 Seconds (9.0-12.0)
[2019-11-17 07:59] LABS: Albumin Level 2.8 gm/dl (3.4-5.0); BUN Creatinine Ratio 11.7 (10-20); Calcium 8.9 mg/dl (8.5-10.1); Creatinine Clr Calc Pharmacy 59.2 ml/min; Est GFR (African American) 80.7; Est GFR (Non-African American) 69.6; Potassium 3.8 mmol/L (3.5-5.1)
[2019-11-17 08:02] LABS: Albumin Globulin Ratio 0.7 (0.9-2); Bilirubin,Total 0.9 mg/dl (0.2-1); Globulin 4.3 gm/dl (2.5-4.0); Total Protein 7.1 gm/dl (6.4-8.2)
[2019-11-17] MEDS: ATORVASTATIN 10 MG TAB PO SCH (08:39)
[2019-11-17] MEDS: METOPROLOL TARTRATE 25 MG TAB PO SCH ×2 (08:39→17:24)
[2019-11-17] MEDS: INSULIN ASPART 100 UNITS/ML 3 ML PEN SC SCH ×4 (08:40→20:55)
[2019-11-17 13:08] LABS: Basophils # (auto) 0.04 K/uL (0-0.2); Basophils % (auto) 0.4 %; Eosinophils % (auto) 3.6 %; Hematocrit (blood only) 39.6 % (42-52); Hemoglobin 12.8 g/dL (14.0-18.0); Immature Granulocytes # (auto) 0.03 K/uL (0.00-0.02); Immature Granulocytes % (auto) 0.3 %; Lymphocytes # (auto) 2.52 K/uL (1.2-3.4); Lymphocytes % (auto) 22.9 %; Mean Corpuscular Hemoglobin 28.4 pg (25-34); Mean Corpuscular Hgb Conc 32.3 g/dL (32-36); Mean Corpuscular Volume 87.8 fL (80-100); Mean Platelet Volume 9.9 fL (7.4-10.4); Monocytes # (auto) 0.81 K/uL (0.11-0.59); Monocytes % (auto) 7.4 %; Neutrophils # (auto) 7.21 K/uL (1.4-6.5); Neutrophils % (auto) 65.4 %; Platelet Count 263 K/uL (130-400); RDW Coefficient of Variation 14.3 % (11.5-14.5); RDW Standard Deviation 46.2 fL (36.4-46.3); Red Blood Count 4.51 M/uL (4.7-6.1); White Blood Count 11.01 K/uL (4.8-10.8)
[2019-11-17] MEDS: POLYETHYLENE (MIRALAX) 17 GM PACK PO PRN (13:53)
--- NOTE | 2019-11-17 14:56 | Hospitalist Progress Note ---
Date of Service November 17, 2019 Assessment & Plan (1) SIRS (systemic inflammatory response syndrome): -11/14/2019 patient presents for weakness and by history with episode of abdomen pain. his main complaint was that he felt weak at home and fell on to his bed. his admission labs are remarkable for leukocytosis of 21,000 - there was concern of SIRS.He says that he has history of elevated white blood cell counts in the past but he did have normalized white blood cells under 10,000 in August. normal admission urine analysis. he denies dsyuria. he had admission blood cultures draw and started on Zosyn. He had previously had PEG tube in the past with PEG tube removal. no acute findings on CT abdomen. patient appears to be tolerating the diet. no other complaints of abdomen discomfort as the day progress. -11/15/2019 so far in the hospital stay patient continues to be afebrile.no acute telemetry events other than sinus with 1st degree block. patient's white blood cells remain elevated as 18,000. Continue Zosyn IV with gentle IV fluids and telemetry monitoring, evaluation by PT/OT suggested possible benefits of home health services when ready for discharge -11/16/2019: WBC down to 12,000. blood cultures with no growth to date, had discussed with patient and daughter Shala [phone] that goal is to continue IV antibiotics and IV fluids for now to see if white blood cell counts continue to downtrend further -: WBC around 11,000 and blood cultures no growth to date, IV fluids and IV Zosyn stopped, there is still no current source of infection identified, will transition to oral Augmentin for now , re-assess on 11/18/2019 (2) Abdominal pain: appears resolved (3) Nausea & vomiting: appears resolved (4) Dehydration: on IV fluids 60 cc/hr (5) HTN (hypertension): -on metoprolol (6) History of multiple strokes: (7) Dysphagia as late effect of cerebrovascular accident (CVA): (8) Dysarthria as late effect of cerebrovascular accident (CVA): Anticoagulated by coumadin anticoagulation -This is a patient with history of stroke with residual dysarthria and also had history of dysphagia which required nutrition in the past with PEG tube -on this admission he no longer has PEG tube although there are residual PEG tube scar the area of the previous PEG tube was swabbed and sent for microbiology but patient denied recent purulent drainage from former PEG site -Dysphagia screen passed in the hospital and patient on diet with pureed foods and also carb consistent due to DM -CXR to be repeated on 11/15/2019 in the leukocytosis workup -because of his stroke in the past, patient has been on coumadin for stroke prophylaxis and on admission with therapeutic INR of 2.6 -INR is 3 on 11/16/2019 and coumadin was held. INR is 2.4 on 11/17/2019, continue coumadin as 5 mg daily for now (9) Elevated troponin: -history of elevated troponins in the past, on this admission he had troponin levels of 0.075, 0.074, 0.062 but no chest pain -no Coumadin and Metoprolol -11/15/2019: No fevers overnight, no acute telemetry events other than sinus with 1st degree block. (10) Diabetes mellitus, type 2: Type 2 diabetes mellitus with fdc current use of insulin. Last A1C 7.21 June 2019 HbA1c 7.2 on this admission -reducing Lantus on 11/15/2019 to avoid hypoglycemia (11) DVT prophylaxis: therapeutic INR Admission and Anticipated Discharge Date Admission Date: November 14, 2019 Subjective WBC around 11,000 and blood cultures no growth to date, IV fluids and IV Zosyn stopped, there is still no current source of infection identified, will transition to oral Augmentin for now , re-assess on 11/18/2019 discussed with patient and his family (daughter Shala) patient has no headache, no chest pain, no shortness of breath, no dizziness, no nausea, no vomiting Review of Systems Review of Systems: All systems reviewed & are unremarkable except as noted in Subjective Physical Exam Constitutional: comfortable Eyes: PERRL, conjunctivae normal, anicteric sclerae EOM intact bilaterally ENMT: external ear and nose normal, oropharynx normal Neck: normal visual inspection Respiratory: normal respiratory effort Cardiovascular: Rate/Rhythm: regular rate Gastrointestinal (Abdomen): normal bowel sounds, soft, nontender, no hepatosplenomegaly Musculoskeletal: Head/Neck/Chest: normocephalic and head atraumatic Neurologic: CN's II-XI intact bilaterally (baseline dysarthria) Psychiatric: A+Ox3, euthymic affect Results & Data Results & Data ([facility]) Vital Signs (Past 12 Hours) Vital Signs Temp Pulse Pulse Resp BP Pulse Ox 11/17/19 07:58 36.7 C 63 18 141/84 H 97 11/17/19 07:28 56 L 11/17/19 03:38 36.6 C 58 L 18 155/78 H 96 (1) Nausea & vomiting Vomiting Intractability: non-intractable Vomiting type: unspecified Qualified Code(s): R11.2 - Nausea with vomiting, unspecified
[2019-11-17] MEDS ORDERED: WARFARIN SOD 5 MG TAB PO SCH (16:00)
[2019-11-17] MEDS: AMOXICILLIN/CLAVULANATE 875 MG TAB PO SCH (17:28)
[2019-11-17] MEDS: INSULIN GLARGINE SOLOSTAR 100 UNITS/ML 3 ML PEN SC SCH (20:55)
[2019-11-18 07:55] LABS: Basophils # (auto) 0.03 K/uL (0-0.2); Basophils % (auto) 0.3 %; Eosinophils # (auto) 0.47 K/uL (0-0.5); Eosinophils % (auto) 5.2 %; Hematocrit (blood only) 41.4 % (42-52); Hemoglobin 13.5 g/dL (14.0-18.0); Immature Granulocytes # (auto) 0.01 K/uL (0.00-0.02); Immature Granulocytes % (auto) 0.1 %; Lymphocytes % (auto) 27.7 %; Mean Corpuscular Hgb Conc 32.6 g/dL (32-36); Mean Corpuscular Volume 85.7 fL (80-100); Mean Platelet Volume 9.7 fL (7.4-10.4); Monocytes # (auto) 0.96 K/uL (0.11-0.59); Monocytes % (auto) 10.6 %; Neutrophils # (auto) 5.07 K/uL (1.4-6.5); Neutrophils % (auto) 56.1 %; Platelet Count 269 K/uL (130-400); RDW Standard Deviation 43.7 fL (36.4-46.3); Red Blood Count 4.83 M/uL (4.7-6.1); White Blood Count 9.04 K/uL (4.8-10.8)
[2019-11-18 08:09] LABS: INR 2.2 (0.9-1.1)
[2019-11-18] MEDS: METOPROLOL TARTRATE 25 MG TAB PO SCH (08:09)
[2019-11-18] MEDS: ATORVASTATIN 10 MG TAB PO SCH (08:09)
[2019-11-18] MEDS: AMOXICILLIN/CLAVULANATE 875 MG TAB PO SCH (08:09)
[2019-11-18] MEDS: INSULIN ASPART 100 UNITS/ML 3 ML PEN SC SCH ×2 (08:10→12:02)
[2019-11-18] MEDS ORDERED: AMLODIPINE BESYLATE 5 MG TAB PO ONE (08:19)
[2019-11-18 08:21] LABS: BUN Creatinine Ratio 13.6 (10-20); Calcium 8.8 mg/dl (8.5-10.1); Creatinine Clr Calc Pharmacy 62.7 ml/min; Est GFR (African American) 90.6; Est GFR (Non-African American) 78.2; Potassium 3.6 mmol/L (3.5-5.1)
[2019-11-18] MEDS ORDERED: SENNA 8.6 MG TAB PO SCH (10:30)
--- NOTE | 2019-11-18 10:40 | Hospitalist Progress Note ---
Date of Service November 18, 2019 Assessment & Plan (1) SIRS (systemic inflammatory response syndrome): -11/14/2019 patient presents for weakness and by history with episode of abdomen pain. his main complaint was that he felt weak at home and fell on to his bed. his admission labs are remarkable for leukocytosis of 21,000 - there was concern of SIRS.He says that he has history of elevated white blood cell counts in the past but he did have normalized white blood cells under 10,000 in August. normal admission urine analysis. he denies dsyuria. he had admission blood cultures draw and started on Zosyn. He had previously had PEG tube in the past with PEG tube removal. no acute findings on CT abdomen. patient appears to be tolerating the diet. no other complaints of abdomen discomfort as the day progress. -11/15/2019 so far in the hospital stay patient continues to be afebrile.no acute telemetry events other than sinus with 1st degree block. patient's white blood cells remain elevated as 18,000. Continue Zosyn IV with gentle IV fluids and telemetry monitoring, evaluation by PT/OT suggested possible benefits of home health services when ready for discharge -11/16/2019: WBC down to 12,000. blood cultures with no growth to date, had discussed with patient and daughter Shala [phone] that goal is to continue IV antibiotics and IV fluids for now to see if white blood cell counts continue to downtrend further -11/17/2019: WBC around 11,000 and blood cultures no growth to date, IV fluids and IV Zosyn stopped, there is still no current source of infection identified, will transition to oral Augmentin for now , re-assess on 11/18/2019 -11/18/2019: WBC 9,000 on 11/18/2019. discharge on Augmentin BID to be finished on last day of 11/21/2019 for a total 7 day course of antibiotics (2) Abdominal pain: appears resolved senna daily to prevent constipation (3) Nausea & vomiting: appears resolved (4) Dehydration: on IV fluids 60 cc/hr (5) HTN (hypertension): -on metoprolol -amlodipine 10 mg daily for now to keep blood pressure below 160/90. (6) History of multiple strokes: (7) Dysphagia as late effect of cerebrovascular accident (CVA): (8) Dysarthria as late effect of cerebrovascular accident (CVA): Anticoagulated by coumadin anticoagulation -This is a patient with history of stroke with residual dysarthria and also had history of dysphagia which required nutrition in the past with PEG tube -on this admission he no longer has PEG tube although there are residual PEG tube scar the area of the previous PEG tube was swabbed and sent for microbiology but patient denied recent purulent drainage from former PEG site -Dysphagia screen passed in the hospital and patient on diet with pureed foods and also carb consistent due to DM -no pneumonia on hospital CXR -because of his stroke in the past, patient has been on coumadin for stroke prophylaxis and on admission with therapeutic INR of 2.6 -was given coumadin 7.5 mg 11/14/19, and coumadin 5 mg 11/15/19, coumadin 5 mg 11/17/19, INR is 2.2 discharge on coumadin 5 mg daily for now (10 day prescription prescribed) (9) Elevated troponin: -history of elevated troponins in the past, on this admission he had troponin levels of 0.075, 0.074, 0.062 but no chest pain -no Coumadin and Metoprolol -11/15/2019: No fevers overnight, no acute telemetry events other than sinus with 1st degree block. (10) Diabetes mellitus, type 2: Type 2 diabetes mellitus with fdc current use of insulin. Last A1C 7.21 June 2019 HbA1c 7.2 on this admission -reducing Lantus on 11/15/2019 to avoid hypoglycemia -home insulin dosing is changed to 10 units Lantus at night instead of 18 units every night (11) DVT prophylaxis: therapeutic INR discharge medication sent electronically to [facility] [address] [place] [address], [place] [id number] patient should have repeat WBC, INR checked by primary care clinic 11/24/2019 2:15 PM Provider Katie Leung at [place] [facility] on [facility] in [place] Admission and Anticipated Discharge Date Admission Date: November 14, 2019 Subjective has been making bowel movements but not large amounts of stool as per patient. no abdomen pain. no vomiting. no dizziness. no headache. no chest pain. no shor tness of breath. no palpitations. WBC normalized. no fevers. blood pressure a little higher today. amlodipine started. discussed with patient and his daughter about management of health issues on discharge Review of Systems Review of Systems: All systems reviewed & are unremarkable except as noted in Subjective Physical Exam Constitutional: comfortable Eyes: PERRL, conjunctivae normal, anicteric sclerae EOM intact bilaterally ENMT: external ear and nose normal, oropharynx normal Neck: normal visual inspection Respiratory: normal respiratory effort Cardiovascular: Rate/Rhythm: regular rate Gastrointestinal (Abdomen): normal bowel sounds, soft, nontender, no hepatosplenomegaly Musculoskeletal: Head/Neck/Chest: normocephalic and head atraumatic Neurologic: CN's II-XI intact bilaterally (baseline dysarthria) Psychiatric: A+Ox3, euthymic affect Results & Data Results & Data ([facility]) Vital Signs (Past 12 Hours) Vital Signs Temp Pulse Pulse Resp BP BP Pulse Ox 11/18/19 10:21 73 165/84 H 11/18/19 08:00 71 11/18/19 07:42 36.5 C 58 L 18 177/79 H 95 11/18/19 07:26 59 L 11/18/19 03:17 36.4 C L 64 22 159/85 H 95 11/18/19 01:17 61 11/17/19 23:04 36.4 C L 56 L 19 179/89 H 176/89 H 96 (1) Nausea & vomiting Vomiting Intractability: non-intractable Vomiting type: unspecified Qualified Code(s): R11.2 - Nausea with vomiting, unspecified
--- NOTE | 2019-11-18 10:45 | Discharge Summary ---
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 He presented to the ED due to an episode of weakness and abdominal pain this morning. He was trying to get out of bed this morning and couldnt get up by himself which is very unlike him. He lives alone. He had a normal BM when he was able to get up. He then started having severe b/l lower abdominal pain. The pain persisted for a short time and now has subsided. He has no abdominal pain currently. When he went for his CT scan, he had nausea and vomiting x 1. No other N/V/D at home. He denies lightheadedness, dizziness, sweats, chills, fever, GORDON, SOB, chest pain, urinary symptoms, or peripheral edema. No rashes or joint pain out of the ordinary. The patient has had problems with aspiration and swallowing since his last stroke. He had a PEG tube placed during his hospitalization for his stroke due to aspiration problems. This was removed 2 weeks ago because patient has been doing well with drinking liquids and a mostly pureed diet at home. He states that he has been eating and drinking well. He recently has been undergoing cardiac workup outpatient. Uncertain who he is seeing. He had a monitor on for 2 weeks as an outpatient but has no results from that yet. He was previously on Xarelto and has been transitioned to Coumadin. He just finished Lovenox injections yesterday. INR today is therapeutic. He was tachycardic with a junctional rhythm upon presentation, but with fluids, his rhythm returned to NSR. Since presentation, the patients workup showed elevated WBC count of 21 with neutrophil predominance. Lactic acid normal. CT abd/pelvis and CXR unremarkable for acute process. CT abd/pelvis showed prostamegaly with signs of chronic bladder outlet obstruction, but UA was unrevealing as well. Troponin slightly elevated. Of note, patient was recently admitted to [facility] in August 2019 as well for sepsis. At that time, he was found to have UTI with pseudomonas and was d/cd on Cipro. Principal Diagnosis SIRS (systemic inflammatory response syndrome) with leukocytosis Dehydration Dysarthria as late effect of cerebrovascular accident (CVA): Anticoagulated by coumadin anticoagulation Type 2 diabetes mellitus with half-way current use of insulin. Discharge Exam Constitutional comfortable Eyes PERRL, conjunctivae normal, anicteric sclerae EOM intact bilaterally ENMT external ear and nose normal, oropharynx normal Neck normal visual inspection Respiratory normal respiratory effort Cardiovascular Rate/Rhythm: regular rate Gastrointestinal (Abdomen) normal bowel sounds, soft, nontender, no hepatosplenomegaly Musculoskeletal Head/Neck/Chest: normocephalic and head atraumatic Neurologic CN's II-XI intact bilaterally (baseline dysarthria) Psychiatric A+Ox3, euthymic affect Discharge Data Allergies Allergy/AdvReac Type Severity Reaction Status Date / Time No Known Allergies Allergy Verified 11/14/19 07:16 Consultations 11/14/19 08:35 ED Decision to Admit Stat 11/14/19 12:00 Consult Case Management - Discharge Planning Routine Consult Gastroenterology Routine Ordered Studies 11/14/19 06:50 CT abd pelvis IV con only Stat Hospital Course (1) SIRS (systemic inflammatory response syndrome): -11/14/2019 patient presents for weakness and by history with episode of abdomen pain. his main complaint was that he felt weak at home and fell on to his bed. his admission labs are remarkable for leukocytosis of 21,000 - there was concern of SIRS.He says that he has history of elevated white blood cell counts in the past but he did have normalized white blood cells under 10,000 in August. normal admission urine analysis. he denies dsyuria. he had admission blood cultures draw and started on Zosyn. He had previously had PEG tube in the past with PEG tube removal. no acute findings on CT abdomen. patient appears to be tolerating the diet. no other complaints of abdomen discomfort as the day progress. -11/15/2019 so far in the hospital stay patient continues to be afebrile.no acute telemetry events other than sinus with 1st degree block. patient's white blood cells remain elevated as 18,000. Continue Zosyn IV with gentle IV fluids and telemetry monitoring, evaluation by PT/OT suggested possible benefits of home health services when ready for discharge -11/16/2019: WBC down to 12,000. blood cultures with no growth to date, had discussed with patient and daughter Shala [phone] that goal is to continue IV antibiotics and IV fluids for now to see if white blood cell counts continue to downtrend further -11/17/2019: WBC around 11,000 and blood cultures no growth to date, IV fluids and IV Zosyn stopped, there is still no current source of infection identified, will transition to oral Augmentin for now , re-assess on 11/18/2019 -11/18/2019: WBC 9,000 on 11/18/2019. discharge on Augmentin BID to be finished on last day of 11/21/2019 for a total 7 day course of antibiotics (2) Abdominal pain: appears resolved senna daily to prevent constipation (3) Nausea & vomiting: appears resolved (4) Dehydration: on IV fluids 60 cc/hr (5) HTN (hypertension): -on metoprolol -amlodipine 10 mg daily for now to keep blood pressure below 160/90. (6) History of multiple strokes: (7) Dysphagia as late effect of cerebrovascular accident (CVA): (8) Dysarthria as late effect of cerebrovascular accident (CVA): Anticoagulated by coumadin anticoagulation -This is a patient with history of stroke with residual dysarthria and also had history of dysphagia which required nutrition in the past with PEG tube -on this admission he no longer has PEG tube although there are residual PEG tube scar the area of the previous PEG tube was swabbed and sent for microbiology but patient denied recent purulent drainage from former PEG site -Dysphagia screen passed in the hospital and patient on diet with pureed foods and also carb consistent due to DM -no pneumonia on hospital CXR -because of his stroke in the past, patient has been on coumadin for stroke prophylaxis and on admission with therapeutic INR of 2.6 -was given coumadin 7.5 mg 11/14/19, and coumadin 5 mg 11/15/19, coumadin 5 mg 11/17/19, INR is 2.2 discharge on coumadin 5 mg daily for now (10 day prescription prescribed) (9) Elevated troponin: -history of elevated troponins in the past, on this admission he had troponin levels of 0.075, 0.074, 0.062 but no chest pain -no Coumadin and Metoprolol -11/15/2019: No fevers overnight, no acute telemetry events other than sinus with 1st degree block. (10) Diabetes mellitus, type 2: Type 2 diabetes mellitus with intermediate designer current use of insulin. Last A1C 7.21 June 2019 HbA1c 7.2 on this admission -reducing Lantus on 11/15/2019 to avoid hypoglycemia -home insulin dosing is changed to 10 units Lantus at night instead of 18 units every night (11) DVT prophylaxis: therapeutic INR discharge medication sent electronically to [facility] [address] [place] [address] patient should have repeat WBC, INR checked by primary care clinic 11/24/2019 2:15 PM Provider Katie Leung at [facility] in [place] Total Time Total Time Spent Total Time Spent (In Minutes): 40 minutes Total Time Includes: Examination of the Patient, Discharge Planning, Medication Reconciliation and Communication With Other Providers Discharge Plan Discharge Items Patient Disposition: Home - Self-Care Reason For Visit: ABD PAIN,SEPSIS Discharge Diagnosis: SIRS (systemic inflammatory response syndrome) with leukocytosis Dehydration Dysarthria as late effect of cerebrovascular accident (CVA): Anticoagulated by coumadin anticoagulation Type 2 diabetes mellitus with intermediate designer current use of insulin. Condition on Discharge: Good Activity: Resume your previous activity Non-emergency contact: Primary Care Provider Call non-emergency contact if: you have any medication questions Follow-up/Referrals: Tamie Leung PA-C [Primary Care Provider] - Diet: Carb Consistent or DM2 Diet Texture: Pureed (blended smooth) Addtl Attending Provider Instructions: Patient was admitted with White blood cell count of 22,000 on 11/14/2019. no source of infection identified and no fevers. WBC downtrended with IV Zosyn and IV fluids and transitioned to Augmentin on 11/17/2019 when WBC was 11,000. WBC 9,000 on 11/18/2019. discharge on Augmentin BID to be finished on last day of 11/21/2019 for a total 7 day course of antibiotics was given coumadin 7.5 mg 11/14/19, and coumadin 5 mg 11/15/19, coumadin 5 mg 11/17/19, INR is 2.2 discharge on coumadin 5 mg daily for now (10 day prescription prescribed) senna daily to prevent constipation amlodipine 10 mg daily for now to keep blood pressure below 160/90. home insulin dosing is changed to 10 units Lantus at night instead of 18 units every night discharge medication sent electronically to [facility] [address] [facility] [address] patient should have repeat WBC, INR checked by primary care clinic 11/24/2019 2:15 PM [facility] [place] Pending Studies at Discharge: No Stand-Alone Forms: My [facility], Smoking Cessation Medications and DC Order Prescriptions: New sennosides [Senokot] 8.6 mg Tablet 8.6 mg PO QAM 30 Days Qty: 30 RF: 0 amlodipine [Norvasc] 5 mg Tablet 10 mg PO QAM 30 Days Qty: 60 RF: 0 warfarin 5 mg Tablet 5 mg PO DAILY 10 Days Qty: 10 RF: 0 amoxicillin-pot clavulanate [Augmentin] 875-125 mg Tablet 1 tab PO BIDM 4 Days Qty: 8 RF: 0 Lantus Solostar U-100 Insulin 100 unit/mL (3 mL) Insulin Pen 10 unit SC HS 30 Days Qty: 3 RF: 0 Continued insulin aspart U-100 [Novolog PenFill U-100 Insulin] 100 unit/mL cartridge See Rx Instructions .ROUTE .COMPLEX RF: 0 docusate sodium [Colace] 100 mg Capsule 100 mg PO QAM RF: 0 atorvastatin 20 mg Tablet 10 mg PO QAM RF: 0 metoprolol tartrate 25 mg Tablet 25 mg PO BIDM RF: 0 cholecalciferol (vitamin D3) [Vitamin D3] 25 mcg (1,000 unit) Tablet 1,000 unit PO QDD RF: 0 sennosides [senna] 8.6 mg Tablet 8.6 mg PO QAM RF: 0 albuterol sulfate 2.5 mg /3 mL (0.083 %) Solution For Nebulization 2.5 mg INHALATION QID PRN (Reason: Shortness Of Breath) RF: 0 albuterol sulfate 90 mcg/actuation Hfa Aerosol Inhaler 1 puff INHALATION QID PRN (Reason: Shortness Of Breath) RF: 0 Discontinued warfarin 2.5 mg Tablet 0 mg PO QDD RF: 0 enoxaparin [Lovenox] 30 mg/0.3 mL Syringe 0 mg SUBCUT UD RF: 0 Lantus Solostar U-100 Insulin 100 unit/mL (3 mL) insulin pen 18 units SQ HS RF: 0 Discharge Orders: Discharge Order (Routine); Ordered 11/18/19 Ordered By: Joshua Santa/Other Patient Handouts: Managing Type 2 Diabetes Admission Data Admit Date/Time: 11/14/19 09:04 Attending Provider: Joshua Pradhan Admit Provider: Joshua Pradhan Primary Care Provider: Tamie Leung Other Providers: Joshua Pradhan ; Gildardo Stevenson
[2019-11-18] MEDS: POLYETHYLENE (MIRALAX) 17 GM PACK PO PRN (12:01)
[2019-11-19] MEDS ORDERED: AMLODIPINE BESYLATE 5 MG TAB PO SCH (09:00)
== END 2019-11-18 15:18 | disposition home health service (06) | DRG 392 ==
LOC: ED 06:28 → 2S 09:04 → 2N 11-15 10:51

== ENCOUNTER 2019-12-04 08:37 | Observation (INO) ==
[2019-12-04] MEDS ORDERED: SOD PHOSPHATE/SOD BIPHOSPHATE ENEMA 132 ML BTL PR ONE (10:01)
[2019-12-04] MEDS ORDERED: SOD PHOSPHATE/SOD BIPHOSPHATE ENEMA 132 ML BTL PR STA (10:03)
[2019-12-04 10:48] LABS: Appearance Urine Clear (Clear); Bilirubin Urine Negative (Negative); Blood Urine Negative (Negative); Color Urine Yellow; Glucose Urine UA Negative (Negative); Ketones Urine Negative (Negative); Leukocyte Esterase Urine Negative (Negative); Nitrite Urine Negative (Negative); Protein Urine Negative (Negative); Specific Gravity Urine 1.008 (1.000-1.030); Urobilinogen Urine Negative (Negative)
[2019-12-04] MEDS ORDERED: SODIUM CHLORIDE 0.9% 500 ML IV SCH (13:45)
--- NOTE | 2019-12-04 14:37 | History & Physical Report ---
Date of Service December 04, 2019 Assessment & Plan (1) Abdominal pain: (2) Constipation: Pt is 84 y/o M with PMH CVA with residual dysarthria/dysphagia and right hand weakness, Had peg tube since removed in 10/2019 without reported signs of aspiration, HTN, HLD, insulin dependent DM II presented to ER with c/o lower abdominal pain and constipation. Pt states no BM for past 2 days In ER afebrile and vitals stable Pt given Fleets enema in ER and had subsequent BM. Since having BM pt reports no further abdominal discomfort and "I feel good" WBC: 21. Lactate: 1.5. UA unremarkable KUB: Borderline dilated gas-filled loops of large and small bowel. This may represent a mild ileus. A partial small bowel obstruction is considered less likely but not entirely excluded. Follow-up abdomen and pelvis CT can be used for further evaluation. Moderate well-formed stool within the colon. Will get CT Abd/pelvis to further evaluate Add urine culture and blood cultures Zosyn empiric NPO for now IVF Monitor for any recurrent abdominal pain Continue home colace and senokot KUB in am CBC, BMP in am (3) Urinary retention: In ER reported Campbell cath placed and drained 1000ml urine. UA unremarkable. H/O CT Abd/pelvis in 10/2019 with Marked prostatomegaly with evidence of chronic bladder outlet obstruction. Urine culture Bladder scan Trial void Monitor for any recurrent urinary retention (4) CVA (cerebral vascular accident): CVA with residual dysarthria/dysphagia and right hand weakness, Had peg tube and was since removed in 10/2019 without reported signs of aspiration. Pt eating and drinking INR: 2.4 Continue Coumadin, atorvastatin (5) Diabetes mellitus, type 2: A1c: 7.2 in 10/2019 Monitor BSGs Hold home insulin, decrease basal dose while NPO (6) HTN (hypertension): Stable Continue amlodipine, metoprolol tartrate DVT Prophylaxis -On Coumadin Full Code as per discussion with pt Follows with [facility] for routine care Spoke with pt's daughter and went over med rec. She would like called with update tomorrow. Her number is in record. Pt was seen and care coordinated with Dr Galeana. See addendum History of Present Illness Chief Complaint: Abdominal pain, constipation Primary Care Provider: Tamie Leung Pt is 84 y/o M with PMH CVA with residual dysarthria/dysphagia and right hand weakness, Had peg tube since removed in 10/2019 without reported signs of aspiration, HTN, HLD, insulin dependent DM II presented to ER with c/o lower abdominal pain and constipation. Pt states no BM for past 2 days. Usually has BM daily. He reports today with lower abdominal aching. He states that he last urinated yesterday evening. Denies any nausea or vomiting, fever/chills. Denies any recent falls, uses a cane to assist in ambulation. Denies diaphoresis, GORDON, dizziness, syncope, vision changes, neck pain, CP, SOB, orthopnea, palpitations, cough, sore throat, choking, otalgia, rhinorrhea, paresthesias, weakness, extremity edema, rashes, dysuria, hematuria. In ER reported Campbell cath placed and drained 1000ml urine. UA unremarkable. Pt given Fleets enema and had subsequent BM. Since having BM pt reports no further abdominal discomfort and "I feel good". Allergies Allergy/AdvReac Type Severity Reaction Status Date / Time No Known Allergies Allergy Verified 12/04/19 09:32 Home Medications Home Medications Medication Instructions Recorded Confirmed Type insulin aspart U-100 100 unit/mL See Rx Instructions .ROUTE .COMPLEX 05/30/19 12/04/19 History subcutaneous cartridge cholecalciferol (vitamin D3) 1,000 unit PO QDD 08/04/19 12/04/19 History [Vitamin D3] metoprolol tartrate 25 mg PO BIDM 08/04/19 12/04/19 History docusate sodium [Colace] 100 mg PO QAM 09/11/19 12/04/19 History albuterol sulfate 1 puff INHALATION QID PRN 10/23/19 12/04/19 History albuterol sulfate 2.5 mg INHALATION QID PRN 10/23/19 12/04/19 History atorvastatin 10 mg PO QAM 11/14/19 12/04/19 History amlodipine [Norvasc] 10 mg PO QAM 30 Days #60 tab 11/18/19 12/04/19 Rx sennosides [Senokot] 8.6 mg PO QAM 30 Days #30 tab 11/18/19 12/04/19 Rx insulin glargine [Lantus Solostar 18 unit SC 12/04/19 12/04/19 History U-100 Insulin] warfarin 5 mg PO HS 12/04/19 12/04/19 History Past Med/Surg History Medical History Asthma inhaler/nebulizer prn Atrial fibrillation on xarelto BPH (benign prostatic hyperplasia) Chronic pansinusitis Diabetes mellitus, type 2 Dysarthria Dysphagia as late effect of cerebrovascular accident (CVA) has improved Gout Hearing deficit History of stomach cancer 2017--sx Hyperlipidemia Hypertension Nasal polyposis difficultly breathing through nose Stroke 01/20/2019--difficulty swallowing/speech slurred/lost ability to use right hand--follows with Dr. Jerri Hayden @ [facility] Neurology Transient ischemic attack (TIA) 07/2018--no lasting deficits from that mini stroke Surgical History History of abdominal surgery removal of stomach cancer mass History of appendectomy History of bilateral cataract extraction History of esophagogastroduodenoscopy (EGD) History of gastric restrictive surgery History of nasal polypectomy History of prostate surgery History of tooth extraction most teeth removed Status post insertion of percutaneous endoscopic gastrostomy (PEG) tube Family History Brother Family history of diabetes mellitus Other No family history of adverse response to anesthesia No family history of bleeding disorder Social History Preferred Language: Jordanian Communication Ability: Effective Patient Access Required: No Beliefs That Will Affect Care: None marital status: Unknown Current Living Situation: Other Current Living Situation Comment: [facility] current occupational status: retired Feels Safe at Home: Yes Smoking Status: Never smoker Second Hand Exposure: No ; Hx Alcohol Use: No Hx Substance Use: No Review of Systems Review of Systems: All systems reviewed & are unremarkable except as noted in HPI & below Physical Exam Physical Exam: General: no distress, WDWN Head: normocephalic, atraumatic Eyes: PERRL, EOM's intact, conjunctiva non-injected, anicteric ENT: hard of hearing, normal inspection external ears, nose, mucous membranes moist Neck: supple, trachea midline Lungs: clear, no respiratory distress, no wheezing/rhonchi/rales CV: RRR, no murmur, no pretibial edema Abd: normal BS, healing puncture site at previous peg tube insertion is without erythema or discharge, soft, non-tender Ext: no cyanosis, no calf tenderness Neuro: Alert, oriented to person, place, time, normal affect Skin: warm, dry Results & Data Results & Data ([facility]) Vital Signs (Past 12 Hours) Vital Signs Temp Pulse Pulse Resp BP BP Pulse Ox 12/04/19 13:02 76 20 145/82 H 93 12/04/19 08:42 36.9 C 74 20 158/87 H 99 Laboratory Results Short CBC 12/04/19 Range/Units 15:05 WBC 21.34 H (4.8-10.8) K/uL Hgb 13.8 L (14.0-18.0) g/dL Hct 42.0 (42-52) % Plt Count 279 (130-400) K/uL BMP 12/04/19 15:05 Sodium 146 H Potassium 4.0 Chloride 111 H Carbon Dioxide 29 BUN 14 Creatinine 1.02 Glucose 153 H Calcium 8.8 Liver Function 12/04/19 Range/Units 15:05 Total Bilirubin 1.0 (0.2-1) mg/dl AST 7 L (15-37) U/L ALT 20 (12-78) U/L Alkaline Phosphatase 55 (45-117) U/L Albumin 3.5 (3.4-5.0) gm/dl Urine 12/04/19 Range/Units 10:35 Urine Color Yellow Urine Appearance Clear (Clear) Urine pH 7.0 (4.5-7.5) Ur Specific [place] 1.008 (1.000-1.030) Urine Protein Negative (Negative) Urine Glucose (UA) Negative (Negative) Diagnostic Findings KUB: IMPRESSION: 1. Borderline dilated gas-filled loops of large and small bowel. This may represent a mild ileus. A partial small bowel obstruction is considered less likely but not entirely excluded. Follow-up abdomen and pelvis CT can be used fo r further evaluation. 2. Moderate well-formed stool within the colon. Code Status & VTE Plan VTE Prophylaxis Plan VTE Prophylaxis will be ordered: Yes Supervising Physician Co-Signing Physician Notes Patient is an 84-year-old male with history of CVA with residual right-sided weakness and other medical problems presents with history of lower abdominal pain associated with constipation and poor urinary output since 2 days duration. Patient was given enema while in ED after which he had a bowel movement and improved his abdominal discomfort. Also had Campbell catheter placed which drained about a liter of urine. Please review HPI for complete details of presentation. He was noted to have leukocytosis 20 1K. INR is in therapeutic range. Hypernatremia, hyperchloremia noted. Normal lactate levels. KUB suggestive of mild ileus and moderate stool within the colon. CT abdomen is currently pending. On exam patient is moderately built and nourished, no apparent distress, normocephalic atraumatic, lungs are clear to auscultation, S1-S2, no murmur, abdomen soft, nontender, nondistended,+ scar from prior PEG tube placement, chronic right upper extremity weakness, 1+ bilateral lower extremity edema noted. Patient is admitted for management of constipation/abdominal pain and urinary retention. Symptoms improved after enema in ED. We will continue bowel regimen, IV fluids and start on empiric antibiotics until infection is ruled out. CT ABD Pending. Will repeat KUB in the morning. Will bladder scan as needed. Consider urology evaluation if needed. I personally reviewed the record. Patient is interviewed and examined at bedside. Patient's care is coordinated with Elizabeth London PA-C. Please refer to the documentation above for details of patient's presentation and for discussion of other issues.
[2019-12-04] MEDS ORDERED: METOPROLOL TARTRATE 25 MG TAB PO ONE (14:45)
--- NOTE | 2019-12-04 15:08 | XRay Report ---
KUB HISTORY: Generalized abd pain, constipation COMPARISON: Abdomen and pelvis CT 11/14/2019. KUB 08/04/2019. FINDINGS: Borderline dilated gas-filled loop of small bowel within the left upper quadrant. The colon is also at the upper limits of normal and filled with gas and stool. No renal calculi. No ureteral calculi. Calcifications in the deep pelvis likely represent phleboliths. Moderate well-formed stool s een within the colon. No pneumoperitoneum or pneumatosis. IMPRESSION: 1. Borderline dilated gas-filled loops of large and small bowel. This may represent a mild ileus. A p artial small bowel obstruction is considered less likely but not entirely excluded. Follow-up abdomen and pelvis CT can be used for further evaluation. 2. Moderate well-formed stool within the colon. ACT 112: Negative or not required by law. Electronically signed by: Anderson Meehan M.D. 12/04/2019 3:07 PM
[2019-12-04 15:15] LABS: Basophils # (auto) 0.04 K/uL (0-0.2); Basophils % (auto) 0.2 %; Eosinophils # (auto) 0.04 K/uL (0-0.5); Eosinophils % (auto) 0.2 %; Hemoglobin 13.8 g/dL (14.0-18.0); Immature Granulocytes # (auto) 0.07 K/uL (0.00-0.02); Immature Granulocytes % (auto) 0.3 %; Lymphocytes # (auto) 1.66 K/uL (1.2-3.4); Lymphocytes % (auto) 7.8 %; Mean Corpuscular Hemoglobin 27.8 pg (25-34); Mean Corpuscular Hgb Conc 32.9 g/dL (32-36); Mean Corpuscular Volume 84.7 fL (80-100); Mean Platelet Volume 9.8 fL (7.4-10.4); Monocytes # (auto) 1.48 K/uL (0.11-0.59); Monocytes % (auto) 6.9 %; Neutrophils # (auto) 18.05 K/uL (1.4-6.5); Neutrophils % (auto) 84.6 %; Platelet Count 279 K/uL (130-400); RDW Coefficient of Variation 14.4 % (11.5-14.5); RDW Standard Deviation 44.4 fL (36.4-46.3); Red Blood Count 4.96 M/uL (4.7-6.1); White Blood Count 21.34 K/uL (4.8-10.8)
[2019-12-04 15:24] LABS: INR 2.4 (0.9-1.1); Prothrombin Time 24.1 Seconds (9.0-12.0)
[2019-12-04 15:40] LABS: Albumin Level 3.5 gm/dl (3.4-5.0); BUN Creatinine Ratio 13.5 (10-20); Calcium 8.8 mg/dl (8.5-10.1); Creatinine Clr Calc Pharmacy 57.4 ml/min; Est GFR (African American) 77.9; Est GFR (Non-African American) 67.2
--- NOTE | 2019-12-04 15:41 | Emergency Department Note ---
Impression & Plan Acute urinary retention, Dehydration, Constipation, Abdominal pain, lower ED Provider Note NAME: LIGIA NOBLES Jr AGE: 84 SEX: M ARRIVES VIA: Ambulance INFORMANT: Patient, ED PROVIDER(S): Melchor Bonilla MD CHIEF COMPLAINT: Abdominal/rectal pain/pressure, urinary retention, constipation PLAN: Disposition: Admit MEDICAL DECISION MAKING: The patient is a pleasant 84-year-old gentleman with a past medical history of CVA, chronic dysarthria and right upper extremity weakness, hypertension, hyperlipidemia, IDDM 2 who presents emergency department with lower abdominal pain and rectal pressure evolving since last night where he reports he cannot urinate and is unable to have a bowel movement. He reports he did urinate completely last night before going to sleep. However now he feels his bladder is extremely full. He denies any recent fevers, chills, cough, congestion, nausea, vomiting. On arrival the patient is in moderate pain distress related to urinary retention. A Campbell catheter was placed and approximately 1 L of clear yellow urine was collected. He subsequently felt immediate improvement in his pain. He still felt as though he was unable to have a bowel movement but had significantly less rectal pressure. Rectal exam did demonstrate hardened stool ball in the rectal vault that was too proximal for manual disimpaction. Decision was made to proceed with enema. The patient's RN did discuss the case with the patient's daughter over the phone and she expressed concern about the order that was initially placed for soapsuds enema as she relates that last time when he was treated with this in July he was discharged and stooled throughout his entire house and required [place] uatsdin to clean. Therefore we did attempt to treat the patient's constipation with Fleet enema but this was un successful. The patient subsequently was agreeable to be treated with the soapsuds enema which had good effect. He felt significant improvement and resolution of his symptoms. However I did discuss the patient's case with the patient's daughter myself and she did persist expressing her concern that her elderly father lives alone and that she would be worried that there would be repeat episode as before. I did review these concerns with the patient and while he felt improved he did agree to referral for admission given his daughter's concern. Case was discussed with Bree London, [facility], who will evaluate the patient for admission. Basic lab work was ordered in addition to KUB, and IVF hydration. Subsequently, WBC was 21K which is nonspecific and similar to prior episodes when patient has had constipation and straining. Given the patient's complete resolution of symptoms upon decompression of his bladder and movement of his bowels thought to be most likely acute phase reactant at this time. Otherwise HCT and platelets within normal limits. Chemistry without acidosis. Sodium 146 c/w patient's clinically dry appearance. Electrolytes and LFTs unremarkable. KUB demonstrates most likely ileus though partial SBO thought to be less likely. Again given the patient's resolution of symptoms obstruction is considered less likely at this time. Triage Nursing notes reviewed and agree them. Prior medical records reviewed Vital Signs: reviewed and remarkable for no significant abnormalities Differential diagnosis: Appendicitis, testicular torsion, infections, diverticulitis, UTI, obstruction, mesenteric ischemia, aortic pathology, inflammatory bowel disease, renal colic, PUD, pancreatitis, biliary pathology, hernia, volvulus, constipation, as well as other pathologies. ER treatment provided: See below. Laboratory studies: See below Imaging studies: KUB HISTORY: Generalized abd pain, constipation COMPARISON: Abdomen and pelvis CT 11/14/2019. KUB 08/04/2019. FINDINGS: Borderline dilated gas-filled loop of small bowel within the left upper quadrant. The colon is also at the upper limits of normal and filled with gas and stool. No renal calculi. No ureteral calculi. Calcifications in the deep pelvis likely represent phleboliths. Moderate well-formed stool seen within the colon. No pneumoperitoneum or pneumatosis. IMPRESSION: 1. Borderline dilated gas-filled loops of large and small bowel. This may represent a mild ileus. A partial small bowel obstruction is considered less likely but not entirely excluded. Follow-up abdomen and pelvis CT can be used for further evaluation. 2. Moderate well-formed stool within the colon. Consultation(s): Case was discussed with Bree London, [facility], who will evaluate the patient for admission. HPI: The patient is a pleasant 84-year-old gentleman with a past medical history of CVA, chronic dysarthria and right upper extremity weakness, hypertension, hyperlipidemia, IDDM 2 who presents emergency department with lower abdominal pain and rectal pressure evolving since last night where he reports he cannot urinate and is unable to have a bowel movement. He reports he did urinate completely last night before going to sleep. However now he feels his bladder is extremely full. He denies any recent fevers, chills, cough, congestion, nausea, vomiting. ROS: See above HPI for pertinent positives & negatives. A total of 10 systems reviewed and were otherwise negative. PAST MEDICAL HISTORY:See Below PAST SURGICAL HISTORY:See Below FAMILY HISTORY:See Below SOCIAL HISTORY:See Below HOME MEDICATIONS:See Below ALLERGIES:See Below VITALS:See Below PHYSICAL EXAMINATION: GENERAL: Awake, alert, uncomfortable-appearing, in moderate pain distress HENT: Normocephalic, atraumatic. Oropharynx with dry mucous membranes and o therwise unremarkable. EYES: Normal conjunctiva. Sclera non-icteric. NECK: Supple. No nuchal rigidity. FROM. No JVD. RESPIRATORY: Clear to auscultation. CARDIAC: Regular rate, normal rhythm. Extremities warm and well perfused. Pulses equal. ABDOMEN: Distended lower abdomen with discomfort but no discrete tenderness to palpation. No rebound or guarding. No masses. RECTAL: Hardened stool ball in rectal vault. Brown. No melena or gross blood. MUSCULOSKELETAL: Chest examination reveals no tenderness. The back is symmetrical on inspection without obvious abnormality. There is no CVA tenderness to palpation. No joint edema. LOWER EXTREMITIES: Calves are equal size bilaterally and non-tender. No edema. No discoloration. NEURO: No sensory or motor deficits noted from baseline. Dysarthria at baseline. SKIN: No rash or jaundice noted. 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 Jerri Hayden @ [facility] [place] Neurology Transient ischemic attack (TIA) 07/2018--no lasting deficits from that mini stroke Surgical History History of abdominal surgery removal of stomach cancer mass History of appendectomy History of bilateral cataract extraction History of esophagogastroduodenoscopy (EGD) History of gastric restrictive surgery History of nasal polypectomy History of prostate surgery History of tooth extraction most teeth removed Status post insertion of percutaneous endoscopic gastrostomy (PEG) tube Family History Brother Family history of diabetes mellitus Other No family history of adverse response to anesthesia No family history of bleeding disorder Social History Preferred Language: Swedish Communication Ability: Effective [employer] Repair Required: No Beliefs That Will Affect Care: None marital status: Unknown Current Living Situation: Other Current Living Situation Comment: [facility] current occupational status: retired Feels Safe at Home: Yes Smoking Status: Never smoker Second Hand Exposure: No ; Hx Alcohol Use: No Hx Substance Use: No Allergies Allergies Allergy/AdvReac Type Severity Reaction Status Date / Time No Known Allergies Allergy Verified 12/04/19 09:32 Home Meds Home Medications Medication Instructions Recorded Confirmed insulin aspart U-100 100 unit/mL See Rx Instructions .ROUTE .COMPLEX 05/30/19 12/04/19 subcutaneous cartridge cholecalciferol (vitamin D3) 1,000 unit PO QDD 08/04/19 12/04/19 [Vitamin D3] metoprolol tartrate 25 mg PO BIDM 08/04/19 12/04/19 docusate sodium [Colace] 100 mg PO QAM 09/11/19 12/04/19 albuterol sulfate 1 puff INHALATION QID PRN 10/23/19 12/04/19 albuterol sulfate 2.5 mg INHALATION QID PRN 10/23/19 12/04/19 atorvastatin 10 mg PO QAM 11/14/19 12/04/19 insulin glargine [Lantus Solostar 18 unit SC HS 12/04/19 12/04/19 U-100 Insulin] warfarin 5 mg PO HS 12/04/19 12/04/19 Previous Rx's Medication Instructions Recorded amlodipine [Norvasc] 10 mg PO QAM 30 Days #60 tab 11/18/19 sennosides [Senokot] 8.6 mg PO QAM 30 Days #30 tab 06/30/20 Results & Data (ED) Vital Signs Vital Signs - 24 hr 12/04/19 08:42 12/04/19 13:02 Temperature 36.9 C Temperature Source Oral Pulse Rate 74 Pulse Rate [Finger] 76 Respiratory Rate 20 20 Respiratory Effort / Characteristics Non-Labored Spontaneous Blood Pressure 158/87 H Blood Pressure [Right Arm] 145/82 H Blood Pressure Mean 110 Blood Pressure Mean [Right Arm] 103 Pulse Oximetry 99 93 Oxygen Delivery Method Room Air Sepsis Recent Fever Within 48 Hours No Sepsis New/Unexplained Change in Mental Status N/A Sepsis Action Taken by Nursing No Action Required Laboratory Data Attestation: I reviewed the patient's lab results. Result diagrams: 12/04/19 15:05 12/04/19 15:05 Lab Results 12/04/19 Range/Units 10:35 Urine Color Yellow Urine Appearance Clear (Clear) Urine pH 7.0 (4.5-7.5) Ur Specific [place] 1.008 (1.000-1.030) Urine Protein Negative (Negative) Urine Glucose (UA) Negative (Negative) Urine Ketones Negative (Negative) Urine Blood Negative (Negative) Urine Nitrite Negative (Negative) Urine Bilirubin Negative (Negative) Urine Urobilinogen Negative (Negative) Ur Leukocyte Esterase Negative (Negative) Administered Medications Amlodipine Besylate (Norvasc) 10 mg PO QAM [facility] Stop: 01/03/20 17:29 Last Admin: 12/04/19 18:18 Dose: 10 mg Documented by: [id number] Atorvastatin Calcium (Lipitor) 10 mg PO QAM [facility] Stop: 01/03/20 17:29 Last Admin: 12/04/19 18:18 Dose: 10 mg Documented by: [id number] Dextrose/Sodium Chloride (D5w And Nss) 1,000 mls @ 80 mls/hr IV .[id number] [facility] Stop: 12/05/19 18:29 Last Admin: 12/04/19 18:10 Dose: 80 mls/hr Documented by: [id number] Vitamin D (Vitamin D3) 1,000 units PO QDD [facility] Stop: 01/03/20 17:29 Last Admin: 12/04/19 18:19 Dose: 1,000 units Documented by: [id number] Warfarin Sodium (Coumadin) 5 mg PO DAILY@1600 [facility] Stop: 01/03/20 17:29 Last Admin: 12/04/19 18:17 Dose: 5 mg Documented by: [id number] Discontinued Medications Sodium Chloride (Nss) 500 mls @ 125 mls/hr IV .Q4H [facility] Stop: 01/03/20 13:44 Last Admin: 12/04/19 15:22 Dose: 125 mls/hr Documented by: [id number] Piperacillin Sod/Tazobactam (Sod 3.375 gm/ Dextrose) 115 mls @ 230 mls/hr IV NOW ONE; Protocol Stop: 12/04/19 16:59 Last Infusion: 12/04/19 19:38 Dose: 0 mls/hr Documented by: [id number] Admin: 12/04/19 18:10 Dose: 230 mls/hr Documented by: [id number] Metoprolol Tartrate (Lopressor) 25 mg PO 1445 ONE Stop: 12/04/19 14:46 Last Admin: 12/04/19 15:22 Dose: 25 mg Documented by: [id number] Sodium Biphosphate/Sodium Phosphate (Fleet Enema) Confirm Administered Dose 132 ml MD .STK-MED ONE Stop: 12/04/19 10:02 Last Admin: 12/04/19 10:35 Dose: Not Given Documented by: [id number] Sodium Biphosphate/Sodium Phosphate (Fleet Enema) 132 ml MD NOW STA Stop: 12/04/19 10:04 Last Admin: 12/04/19 10:35 Dose: 132 ml Documented by: [id number] Blood Pressure Blood Pressure Findings: Normal blood pressure Blood Pressure Disposition: further management by hospitalist Discharge Plan Visit Data *Final* Discharge Date/Time: 12/04/19 15:36 Chief Complaint: Rectal Pain ED Provider: Melchor Bonilla Discharge Problem: Acute urinary retention, Dehydration, Constipation, Abdominal pain, lower Patient Disposition: Admitted As Inpatient Discharge Instructions Interventions: ED Discharge Assessment Last Done: 12/04/19 15:36 Discharge Problem: Constipation Qualifiers: Constipation type: unspecified constipation type Qualified Code(s): K59.00 - Constipation, unspecified
[2019-12-04 15:43] LABS: Albumin Globulin Ratio 0.9 (0.9-2); Total Protein 7.5 gm/dl (6.4-8.2)
[2019-12-04] MEDS ORDERED: PIPERACILL/TAZOBAC CONSULT ACTIVE PRN (16:29)
[2019-12-04] MEDS ORDERED: PIPERACILLIN/TAZOBACTAM 3.375 GM in DEXTROSE 5% 100 ML IV ONE (16:30)
[2019-12-04] MEDS ORDERED: ALBUTEROL 0.083% NEBU SOLN 3 ML VIAL INH PRN (17:08)
[2019-12-04] MEDS ORDERED: GLUCOSE 10 TABS/TUBE PO PRN (17:08)
[2019-12-04] MEDS ORDERED: GLUCAGON FOR INJ 1 MG VIAL SQ PRN (17:08)
[2019-12-04] MEDS ORDERED: POLYETHYLENE (MIRALAX) 17 GM PACK PO PRN (17:08)
[2019-12-04] MEDS ORDERED: ACETAMINOPHEN 325 MG TAB PO PRN (17:08)
[2019-12-04] MEDS ORDERED: CARBOHYDRATES FOR HYPOGLYCEMIA PO PRN (17:08)
[2019-12-04] MEDS ORDERED: GLUCOSE 40% GEL 15 GM TUBE PO PRN (17:08)
[2019-12-04] MEDS ORDERED: DEXTROSE 50% 50 ML SYRINGE IV PRN (17:08)
[2019-12-04] MEDS ORDERED: MAGNESIUM HYDROXIDE SUSP 30 ML UDC PO PRN (17:08)
[2019-12-04] MEDS ORDERED: INSULIN ASPART 100 UNITS/ML 3 ML PEN SC SCH (17:30)
[2019-12-04] MEDS ORDERED: WARFARIN SOD 5 MG TAB PO SCH (17:30)
[2019-12-04] MEDS ORDERED: CHOLECALCIFEROL 1,000 UNITS 25 MCG TAB PO SCH (17:30)
[2019-12-04] MEDS: D5W AND NSS 1,000 ML IV SCH (18:10)
[2019-12-04] MEDS: ATORVASTATIN 10 MG TAB PO SCH (18:18)
[2019-12-04] MEDS: AMLODIPINE BESYLATE 5 MG TAB PO SCH (18:18)
[2019-12-04] MEDS ORDERED: INSULIN GLARGINE SOLOSTAR 100 UNITS/ML 3 ML PEN SC SCH (21:00)
[2019-12-04] MEDS: METOPROLOL TARTRATE 25 MG TAB PO SCH (21:51)
[2019-12-04] MEDS: DOCUSATE SODIUM 100 MG CAP PO SCH (21:52)
[2019-12-04] MEDS ORDERED: Nursing to Pharmacy Communication SCH (22:45)
[2019-12-05] MEDS: INSULIN GLARGINE SOLOSTAR 100 UNITS/ML 3 ML PEN SC SCH ×2 (00:13→08:16)
[2019-12-05] MEDS: PIPERACILLIN/TAZOBACTAM 3.375 GM in DEXTROSE 5% 100 ML IV SCH ×2 (01:37→07:39)
[2019-12-05] MEDS ORDERED: PNEUMOCOCCAL Polysaccharide Vaccine 25mcg/0.5mL vial/Syr IM ONE (01:45)
[2019-12-05] MEDS: D5W AND NSS 1,000 ML IV SCH (06:20)
[2019-12-05 08:03] LABS: Basophils # (auto) 0.03 K/uL (0-0.2); Basophils % (auto) 0.3 %; Eosinophils # (auto) 0.35 K/uL (0-0.5); Eosinophils % (auto) 3.6 %; Hematocrit (blood only) 37.6 % (42-52); Hemoglobin 12.2 g/dL (14.0-18.0); Immature Granulocytes # (auto) 0.02 K/uL (0.00-0.02); Immature Granulocytes % (auto) 0.2 %; Lymphocytes % (auto) 27.1 %; Mean Corpuscular Hemoglobin 27.6 pg (25-34); Mean Corpuscular Hgb Conc 32.4 g/dL (32-36); Mean Corpuscular Volume 85.1 fL (80-100); Mean Platelet Volume 10.1 fL (7.4-10.4); Monocytes # (auto) 0.95 K/uL (0.11-0.59); Monocytes % (auto) 9.9 %; Neutrophils # (auto) 5.66 K/uL (1.4-6.5); Neutrophils % (auto) 58.9 %; Platelet Count 285 K/uL (130-400); RDW Coefficient of Variation 14.6 % (11.5-14.5); RDW Standard Deviation 45.4 fL (36.4-46.3); Red Blood Count 4.42 M/uL (4.7-6.1); White Blood Count 9.61 K/uL (4.8-10.8)
[2019-12-05 08:08] LABS: INR 3.1 (0.9-1.1); Prothrombin Time 31.1 Seconds (9.0-12.0)
[2019-12-05] MEDS: ATORVASTATIN 10 MG TAB PO SCH (08:15)
[2019-12-05] MEDS: AMLODIPINE BESYLATE 5 MG TAB PO SCH (08:15)
[2019-12-05] MEDS: METOPROLOL TARTRATE 25 MG TAB PO SCH (08:16)
[2019-12-05] MEDS: DOCUSATE SODIUM 100 MG CAP PO SCH (08:16)
[2019-12-05 08:29] LABS: BUN Creatinine Ratio 12.1 (10-20); Calcium 8.3 mg/dl (8.5-10.1); Est GFR (African American) 83.8; Est GFR (Non-African American) 72.3; Potassium 3.8 mmol/L (3.5-5.1)
[2019-12-05] MEDS ORDERED: SENNA 8.6 MG TAB PO SCH (09:00)
--- NOTE | 2019-12-05 10:02 | XRay Report ---
XR KUB/Abdomen 1 view CLINICAL HISTORY: constipation COMPARISON STUDY: 12/04/2019 FINDINGS: There is no pathologic bowel dilatation. There is a slight interval decrease in the colonic fecal load. There is a stable nonspecific punctate right upper quadrant calcification. IMPRESSION: 1. Nonobstructive bowel gas pattern 2. Slight interval decrease in the colonic fecal load ACT 112: Negative or not required by law. Electronically signed by: Regan Stuart M.D. 12/05/2019 10:01 AM
--- NOTE | 2019-12-05 11:57 | CT Scan Report ---
ABDOMEN AND PELVIS CT WITHOUT CONTRAST CT DOSE: 891.71 mGycm HISTORY: constipation R/O Obstruction TECHNIQUE: Multiaxial CT images of the abdomen and pelvis were performed without contrast. A dose lo wering technique was utilized adhering to the principles of ALARA. COMPARISON STUDY: Abdomen and pelvis CT 11/14/2019. FINDINGS: Bibasilar linear densities favor subsegmental atelectasis. No pneumoperitoneum. No pneumato sis. No suspicious lytic or blastic osseous lesions. Linear soft tissue density extending from the sk in surface to the anterior wall of the gastric antrum remains unchanged. This likely represents scarr ing from a prior gastrostomy tube. The unenhanced liver, spleen, adrenal glands, and pancreas are wit hin normal limits. The gallbladder is distended. No gallbladder wall thickening. Mild bilateral perin ephric edema. There is a 3 mm stone within the upper pole of the left kidney. No right renal calculi. No ureteral calculi. No hydronephrosis. Bilateral renal hypodense lesions are not simply changed. Th julio favor cysts. Moderate calcified plaque within the normal caliber abdominal aorta. No retroperiton eal lymphadenopathy. Mild bladder wall thickening which is likely chronic. The prostate gland is enla rged. This remains unchanged. There is mild presacral and body wall edema. Suboptimal evaluation for bowel pathology due to the lack of intravenous and oral contrast. However, there is no definite bowel wall thickening or obstruction. Suture material seen within the right lower quadrant small bowel. Mo derate well-formed stool seen within the descending colon, sigmoid colon, and rectum. This is similar to the prior study. IMPRESSION: 1. No bowel wall thickening or obstruction. 2. Moderate well-formed stool within the colon and rectum. This is similar to the prior study. 3. Marked prostatomegaly with evidence of chronic bladder outlet obstruction, unchanged. 4. Left-sided nephrolithiasis. No ureteral stones. No hydronephrosis. 5. Distended gallbladder. No gallbladder wall thickening. Ultrasound follow up can be performed if th e patient is experiencing right upper quadrant abdominal pain. ACT 112: Negative or not required by law. Electronically signed by: Anderson Meehan M.D. 12/05/2019 11:56 AM
--- NOTE | 2019-12-05 14:17 | Hospitalist Progress Note ---
Date of Service December 05, 2019 Assessment & Plan (1) Abdominal pain: (2) Constipation: Present on admission with abdominal pain ad constipation KUB on admission showed borderline dilated gas-filled loops of large and small bowel. Moderate well-formed stool within the colon. Received fleet enema in the ER then had a BM in the ER Repeat KUB today Nonobstructive bowel gas pattern. Slight interval decrease in the colonic fecal load CT abd/pelvis showed No bowel wall thickening or obstruction. Moderate well- formed stool within the colon and rectum. Pt just had a large bowel movement as per nurse IV zosyn was staring on admission, will d/c abx Continue senokot and colace Tolerated diet Will add Miralax on discharge clinically improves significantly (3) Urinary retention: Possible related to the constipation H/O CT Abd/pelvis in 10/2019 with Marked prostatomegaly with evidence of chronic bladder outlet obstruction. In ER reported Campbell cath placed and drained 1000ml urine. UA unremarkable. 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 Continue Coumadin, atorvastatin INR 3.1 today Stable (5) Diabetes mellitus, type 2: A1c: 7.2 in 10/2019 Hold home insulin Will increase his lantus since tolerated diet On Novolog sliding scale (6) HTN (hypertension): Stable Continue amlodipine, metoprolol tartrate Leukocytosis Mostly reactive due to constipation WBC on admission 21K, then back to normal today Afebrile, lactic acid normal UA on admission negative CT abd/pelvis showed no infectious etiology findidn Received IV Zosyn, will d/c Blood cx pending, will follow up on cx and call daughter if positive DVT Prophylaxis -On Coumadin Full Code Disposition Stable to discharge home Pt is very anxious to go home Admission and Anticipated Discharge Date Admission Date: December 04, 2019 Subjective Pt was seen and examined Lying in bed with no distress Pt said that he feels fine He just had a large bowel movement today He tolerated his diet He said that that he is ready to go home Called daughter and provided with updates Denies any chest pain, palpitation, dizziness and SOB Physical Exam Physical Exam: General- No acute distress Head- atraumatic Eyes- PERRL, EOMI, ENT-Decrease hearing function Neck- supple, no JVD Lungs- clear to auscultation Heart- regular rhythm; no murmur Abdomen- normal bowel sounds, soft, nontender Extremities- no calf tenderness Neuro- alert, oriented x 3; PERRL, EOMI; no facial palsy; no dysarthria Skin- warm & dry Results & Data Results & Data ([facility]) Vital Signs (Past 12 Hours) Vital Signs Temp Pulse Resp BP Pulse Ox 12/05/19 07:44 36.5 C 57 L 16 115/68 95 12/05/19 04:00 36.5 C 48 L 18 115/64 95
--- NOTE | 2019-12-07 09:15 | Discharge Summary ---
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 Pt states no BM for past 2 days. Usually has BM daily. He reports today with lower abdominal aching. He states that he last urinated yesterday evening. Denies any nausea or vomiting, fever/chills. Denies any recent falls, uses a cane to assist in ambulation. Denies diaphoresis, GORDON, dizziness, syncope, vision changes, neck pain, CP, SOB, orthopnea, palpitations, cough, sore throat, choking, otalgia, rhinorrhea, paresthesias, weakness, extremity edema, rashes, dysuria, hematuria. In ER reported Campbell cath placed and drained 1000ml urine. UA unremarkable. Pt given Fleets enema and had subsequent BM. Since having BM pt reports no further abdominal discomfort and "I feel good". Admission Exam Per Admitting Provider General: no distress, WDWN Head: normocephalic, atraumatic Eyes: PERRL, EOM's intact, conjunctiva non-injected, anicteric ENT: hard of hearing, normal inspection external ears, nose, mucous membranes moist Neck: supple, trachea midline Lungs: clear, no respiratory distress, no wheezing/rhonchi/rales CV: RRR, no murmur, no pretibial edema Abd: normal BS, healing puncture site at previous peg tube insertion is without erythema or discharge, soft, non-tender Ext: no cyanosis, no calf tenderness Neuro: Alert, oriented to person, place, time, normal affect Skin: warm, dry Principal Diagnosis (1) Abdominal pain: (2) Constipation: (3) Urinary retention: (4) CVA (cerebral vascular accident) (5) Diabetes mellitus, type 2: (6) HTN (hypertension): (7) Leukocytosis Discharge Exam General- No acute distress Head- atraumatic Eyes- PERRL, EOMI, ENT-Decrease hearing function Neck- supple, no JVD Lungs- clear to auscultation Heart- regular rhythm; no murmur Abdomen- normal bowel sounds, soft, nontender Extremities- no calf tenderness Neuro- alert, oriented x 3; PERRL, EOMI; no facial palsy; no dysarthria Skin- warm & dry Discharge Data Allergies Allergy/AdvReac Type Severity Reaction Status Date / Time No Known Allergies Allergy Verified 12/04/19 09:32 Consultations 12/04/19 13:48 ED Decision to Admit Stat Ordered Studies 12/04/19 17:02 CT abd pelvis wo con Routine KUB HISTORY: Generalized abd pain, constipation COMPARISON: Abdomen and pelvis CT 11/14/2019. KUB 08/04/2019. FINDINGS: Borderline dilated gas-filled loop of small bowel within the left upper quadrant. The colon is also at the upper limits of normal and filled with gas and stool. No renal calculi. No ureteral calculi. Calcifications in the deep pelvis likely represent phleboliths. Moderate well-formed stool seen within the colon. No pneumoperitoneum or pneumatosis. IMPRESSION: 1. Borderline dilated gas-filled loops of large and small bowel. This may represent a mild ileus. A partial small bowel obstruction is considered less likely but not entirely excluded. Follow-up abdomen and pelvis CT can be used for further evaluation. 2. Moderate well-formed stool within the colon. ACT 112: Negative or not required by law. Electronically signed by: Anderson Meehan M.D. 12/04/2019 3:07 PM Dictated: 12/04/19 1504 Transcribed: 12/04/[address] WITHOUT CONTRAST CT DOSE: 891.71 mGycm HISTORY: constipation R/O Obstruction TECHNIQUE: Multiaxial CT images of the abdomen and pelvis were performed without contrast. A dose lowering technique was utilized adhering to the principles of ALARA. COMPARISON STUDY: Abdomen and pelvis CT 11/14/2019. FINDINGS: Bibasilar linear densities favor subsegmental atelectasis. No pneumoperitoneum. No pneumatosis. No suspicious lytic or blastic osseous lesions. Linear soft tissue density extending from the skin surface to the anterior wall of the gastric antrum remains unchanged. This likely represents scarring from a prior gastrostomy tube. The unenhanced liver, spleen, adrenal glands, and pancreas are within normal limits. The gallbladder is distended. No gallbladder wall thickening. Mild bilateral perinephric edema. There is a 3 mm stone within the upper pole of the left kidney. No right renal calculi. No ureteral calculi. No hydronephrosis. Bilateral renal hypodense lesions are not simply changed. These favor cysts. Moderate calcified plaque within the normal caliber abdominal aorta. No retroperitoneal lymphadenopathy. Mild bladder wall thickening which is likely chronic. The prostate gland is enlarged. This remains unchanged. There is mild presacral and body wall edema. Suboptimal evaluation for bowel pathology due to the lack of intravenous and oral contrast. However, there is no definite bowel wall thickening or obstruction. Suture material seen within the right lower quadrant small bowel. Moderate well-formed stool seen within the descending colon, sigmoid colon, and rectum. This is similar to the prior study. IMPRESSION: 1. No bowel wall thickening or obstruction. 2. Moderate well-formed stool within the colon and rectum. This is similar to the prior study. 3. Marked prostatomegaly with evidence of chronic bladder outlet obstruction, unchanged. 4. Left-sided nephrolithiasis. No ureteral stones. No hydronephrosis. 5. Distended gallbladder. No gallbladder wall thickening. Ultrasound follow up can be performed if the patient is experiencing right upper quadrant abdominal pain. ACT 112: Negative or not required by law. Electronically signed by: Anderson Meehan M.D. 12/05/2019 11:56 AM Dictated: 12/05/19 1149 Transcribed: 12/05/19 1149 XR KUB/Abdomen 1 view CLINICAL HISTORY: constipation COMPARISON STUDY: 12/04/2019 FINDINGS: There is no pathologic bowel dilatation. There is a slight interval decrease in the colonic fecal load. There is a stable nonspecific punctate right upper quadrant calcification. IMPRESSION: 1. Nonobstructive bowel gas pattern 2. Slight interval decrease in the colonic fecal load ACT 112: Negative or not required by law. Electronically signed by: Regan Stuart M.D. 12/05/2019 10:01 AM Dictated: 12/05/19 0959 Transcribed: 12/05/1959 Hospital Course (1) Abdominal pain: (2) Constipation: Present on admission with abdominal pain ad constipation KUB on admission showed borderline dilated gas-filled loops of large and small bowel. Moderate well-formed stool within the colon. Received fleet enema in the ER then had a BM in the ER Repeat KUB today Nonobstructive bowel gas pattern. Slight interval decrease in the colonic fecal load CT abd/pelvis showed No bowel wall thickening or obstruction. Moderate well- formed stool within the colon and rectum. Pt just had a large bowel movement as per nurse IV zosyn was staring on admission, will d/c abx Continue senokot and colace Tolerated diet Will add Miralax on discharge clinically improves significantly (3) Urinary retention: Possible related to the constipation H/O CT Abd/pelvis in 10/2019 with Marked prostatomegaly with evidence of chronic bladder outlet obstruction. In ER reported Campbell cath placed and drained 1000ml urine. UA unremarkable. 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 Continue Coumadin, atorvastatin INR 3.1 today Stable (5) Diabetes mellitus, type 2: A1c: 7.2 in 10/2019 Hold home insulin Will increase his lantus since tolerated diet On Novolog sliding scale (6) HTN (hypertension): Stable Continue amlodipine, metoprolol tartrate Leukocytosis Mostly reactive due to constipation WBC on admission 21K, then back to normal today Afebrile, lactic acid normal UA on admission negative CT abd/pelvis showed no infectious etiology findidn Received IV Zosyn, will d/c Blood cx pending, will follow up on cx and call daughter if positive DVT Prophylaxis -On Coumadin Full Code Disposition Stable to discharge home Pt is very anxious to go home Total Time Total Time Spent Total Time Spent (In Minutes): 35 minutes Total Time Includes: Examination of the Patient, Discharge Planning, Medication Reconciliation, Communication With Other Providers and Other Discharge Plan Discharge Items Patient Disposition: Home - Self-Care Reason For Visit: CONSTIPATION,URINARY RETENTION Discharge Diagnosis: (1) Abdominal pain: (2) Constipation: (3) Urinary retention: (4) CVA (cerebral vascular accident) (5) Diabetes mellitus, type 2: (6) HTN (hypertension): (7) Leukocytosis Activity: Resume your previous activity Non-emergency contact: Primary Care Provider Call non-emergency contact if: you have any medication questions and your symptoms worsen Follow-up/Referrals: Tamie Leung PA-C [Primary Care Provider] - Diet: Heart Healthy Addtl Attending Provider Instructions: Follow up with your primary care provider [place] in 1 week Follow up with the coumadin clinic to monitor PT/INR Continue stool softener/Laxative daily (Please hold for diarrhea ) seek medical attention if abdominal pain reoccurs or develop any fever Will call you with the result of the blood culture if positive for bacteria Fall precaution Pending Studies at Discharge: Yes Studies:: Blood culture Stand-Alone Forms: My [facility], Smoking Cessation Medications and DC Order Prescriptions: New polyethylene glycol 3350 [Miralax] 17 gram powder in packet 17 gm PO DAILY PRN (Reason: constipation) Qty: 30 RF: 0 Continued insulin aspart U-100 [Novolog PenFill U-100 Insulin] 100 unit/mL cartridge See Rx Instructions .ROUTE .COMPLEX RF: 0 docusate sodium [Colace] 100 mg Capsule 100 mg PO QAM RF: 0 atorvastatin 20 mg Tablet 10 mg PO QAM RF: 0 sennosides [Senokot] 8.6 mg Tablet 8.6 mg PO QAM 30 Days Qty: 30 RF: 0 amlodipine [Norvasc] 5 mg Tablet 10 mg PO QAM 30 Days Qty: 60 RF: 0 warfarin 2.5 mg Tablet 5 mg PO HS RF: 0 Lantus Solostar U-100 Insulin 100 unit/mL (3 mL) insulin pen 18 unit SC HS RF: 0 metoprolol tartrate 25 mg Tablet 25 mg PO BIDM RF: 0 cholecalciferol (vitamin D3) [Vitamin D3] 25 mcg (1,000 unit) Tablet 1,000 unit PO QDD RF: 0 albuterol sulfate 2.5 mg /3 mL (0.083 %) Solution For Nebulization 2.5 mg INHALATION QID PRN (Reason: Shortness Of Breath) RF: 0 albuterol sulfate 90 mcg/actuation Hfa Aerosol Inhaler 1 puff INHALATION QID PRN (Reason: Shortness Of Breath) RF: 0 Discharge Orders: Discharge Order (Routine); Ordered 12/05/19 Ordered By: Dennise Bowen Admission Data Admit Date/Time: 12/04/19 14:23 Attending Provider: Dennise Bowen Admit Provider: Rakesh Galeana Primary Care Provider: Tamie Leung Other Providers: Rakesh Galeana Other Interventions: Discharge Summary Assessment (RN) Last Done: 12/05/19 15:08 DC Date/Time DO NOT enter until pt leaves facility: 12/05/19 15:25
== END 2019-12-05 15:25 | disposition home or self-care (01) ==
LOC: 2W 08:37 → ED 08:37 → SUATTDRO 14:23 → 2W 15:36

== ENCOUNTER 2020-02-15 18:06 | Inpatient (IN) ==
[2020-02-15] MEDS ORDERED: ALBUT/IPRATROP 3MG/0.5MG NEB 3 ML VIAL INH STA (18:48)
[2020-02-15] MEDS ORDERED: methylPREDNISolone 125 MG/2 ML VIAL IV STA (18:48)
--- NOTE | 2020-02-15 19:26 | XRay Report ---
XR chest 1V portable CLINICAL HISTORY: Dyspnea COMPARISON STUDY: Chest radiograph November 15, 2019. FINDINGS: Lung volumes are normal. Lungs are clear. There is no pneumothorax or pleural effusion. Car diac size is normal. Mediastinal contours are normal. There is no evidence for pulmonary edema. IMPRESSION: No acute cardiopulmonary findings. ACT 112: Negative or not required by law. Electronically signed by: Arvind Rojo M.D. 02/15/2020 7:24 PM
[2020-02-15 19:27] LABS: Basophils # (auto) 0.06 K/uL (0-0.2); Basophils % (auto) 0.5 %; Eosinophils # (auto) 0.98 K/uL (0-0.5); Eosinophils % (auto) 7.7 %; Hematocrit (blood only) 44.9 % (42-52); Hemoglobin 14.5 g/dL (14.0-18.0); Immature Granulocytes # (auto) 0.02 K/uL (0.00-0.02); Immature Granulocytes % (auto) 0.2 %; Lymphocytes # (auto) 2.15 K/uL (1.2-3.4); Lymphocytes % (auto) 16.8 %; Mean Corpuscular Hemoglobin 27.7 pg (25-34); Mean Corpuscular Hgb Conc 32.3 g/dL (32-36); Mean Corpuscular Volume 85.7 fL (80-100); Mean Platelet Volume 9.3 fL (7.4-10.4); Monocytes # (auto) 0.53 K/uL (0.11-0.59); Monocytes % (auto) 4.1 %; Neutrophils # (auto) 9.04 K/uL (1.4-6.5); Neutrophils % (auto) 70.7 %; Platelet Count 335 K/uL (130-400); RDW Coefficient of Variation 15.2 % (11.5-14.5); RDW Standard Deviation 48.4 fL (36.4-46.3); Red Blood Count 5.24 M/uL (4.7-6.1); White Blood Count 12.78 K/uL (4.8-10.8)
[2020-02-15 19:39] LABS: INR 1.8 (0.9-1.1); Partial Thromboplastin Ratio 1.3; Partial Thromboplastin Time 36.2 Seconds (21.0-31.0); Prothrombin Time 18.4 Seconds (9.0-12.0)
[2020-02-15 19:43] LABS: Albumin Level 3.9 gm/dl (3.4-5.0); BUN Creatinine Ratio 16.8 (10-20); Calcium 9.1 mg/dl (8.5-10.1); Creatinine Clr Calc Pharmacy 42.8 ml/min; Est GFR (Non-African American) 55.2; Magnesium 2.2 mg/dl (1.8-2.4); Potassium 4.3 mmol/L (3.5-5.1)
[2020-02-15 19:48] LABS: Globulin 3.9 gm/dl (2.5-4.0); Total Protein 7.8 gm/dl (6.4-8.2); Troponin I 0.028 ng/ml (0-0.045)
[2020-02-15] MEDS ORDERED: WARFARIN SOD 5 MG TAB PO ONE (20:37)
--- NOTE | 2020-02-15 21:19 | History & Physical Report ---
Date of Service February 15, 2020 Assessment & Plan (1) Acute hypoxemic respiratory failure: Secondary to viral bronchitis Patient not septic. PAF on Coumadin, patient NSR, INR slightly subtherapeutic hypertension, slightly elevated hyperlipidemia on statin Rx DM 2 insulin requiring, reasonable control as of recent hemoglobin A1c of 7.21 October 2019 chronic anemia, hemoglobin better than baseline likely secondary to hemoconcentration from mild dehydration Medical telemetry Supplemental O2 Baseline ABG Nebs RTC, prednisone course Mucolytic tx Basal insulin, ISS BG goal [id number], carb count coverage, update hemoglobin A1c DVT prophylaxis. Coumadin INR goal between 2 and 3 Full code Text document was generated using [employer] voice recognition software. It may contain grammatical or spelling errors. Kindly contact undersigned for clarification of any documentation item in question. History of Present Illness Chief Complaint: Shortness of breath Primary Care Provider: Tamie Leung History obtained from patient and records. Medical history significant for PAF on Coumadin, hypertension, hyperlipidemia, DM 2 insulin requiring, chronic anemia (baseline hemoglobin 12-13). Last confinement November 2019 for constipation symptoms. Few days history of dry cough symptoms with pleuritic chest pain and shortness o f breath. No weight gain. No known sick contacts. No fever, no chills. O2 sats found to be 80s on room air by EMS. Patient given Solu-Medrol and neb treatment on route to the hospital. 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 Allergies Allergy/AdvReac Type Severity Reaction Status Date / Time No Known Allergies Allergy Verified 12/04/19 09:32 Home Medications Home Medications Medication Instructions Recorded Confirmed Type insulin aspart U-100 100 unit/mL See Rx Instructions .ROUTE .COMPLEX 05/30/19 02/15/20 History subcutaneous cartridge cholecalciferol (vitamin D3) 1,000 unit PO QDD 08/04/19 02/15/20 History [Vitamin D3] metoprolol tartrate 25 mg PO BIDM 08/04/19 02/15/20 History docusate sodium [Colace] 100 mg PO QAM 09/11/19 02/15/20 History albuterol sulfate 1 puff INHALATION QID PRN 10/23/19 02/15/20 History albuterol sulfate 2.5 mg INHALATION QID PRN 10/23/19 02/15/20 History atorvastatin 10 mg PO QAM 11/14/19 02/15/20 History Lantus Solostar U-100 Insulin 18 unit SC HS 12/04/19 02/15/20 History warfarin 5 mg PO HS 12/04/19 02/15/20 History polyethylene glycol 3350 [Miralax] 17 gm PO DAILY PRN #30 ea 12/05/19 02/15/20 Rx Past Med/Surg History Medical History Asthma inhaler/nebulizer prn Atrial fibrillation on xarelto BPH (benign prostatic hyperplasia) Chronic pansinusitis Diabetes mellitus, type 2 Dysarthria Dysphagia as late effect of cerebrovascular accident (CVA) has improved Gout Hearing deficit History of stomach cancer 2017--sx Hyperlipidemia Hypertension Nasal polyposis difficultly breathing through nose Stroke 01/20/2019--difficulty swallowing/speech slurred/lost ability to use right hand--follows with Dr. Jerri Hayden @ [facility] [place] Neurology Transient ischemic attack (TIA) 07/2018--no lasting deficits from that mini stroke Surgical History History of abdominal surgery removal of stomach cancer mass History of appendectomy History of bilateral cataract extraction History of esophagogastroduodenoscopy (EGD) History of gastric restrictive surgery History of nasal polypectomy History of prostate surgery History of tooth extraction most teeth removed Status post insertion of percutaneous endoscopic gastrostomy (PEG) tube Family History Brother Family history of diabetes mellitus Other No family history of adverse response to anesthesia No family history of bleeding disorder Social History Smoking Status: Never smoker Second Hand Exposure: No; Hx Alcohol Use: No Hx Substance Use: No Preferred Language: Czech Communication Ability: Effective Early Morning Babysitter Required: No Beliefs That Will Affect Care: None marital status: Current Living Situation: Other Current Living Situation Comment: [place] current occupational status: retired Other Information That Helps Us Care for You: No Feels Safe at Home: Yes Safety Concerns: Feels Safe At This Time Assistive Devices: Cane and Glasses Review of Systems Review of Systems: As per HPI, all 10 systems reviewed, all other ROS negative Physical Exam Physical Exam: GENERAL: Slightly uncomfortable, dysarthric (chronic), hyponasal voice, no respiratory distress SKIN: Normal color, warm HEENT: [place] palpebral conjunctivae, no ptosis, dry buccal mucosa, nasal cannula in place NECK : Supple, no tenderness CHEST : CTA, no tenderness HEART : RRR, no obvious murmurs ABDOMEN: Some distention, nontender EXTREMITIES : No LE swelling/tenderness, no other conspicuous deformities noted NEUROLOGIC : Coherent, dysarthric (chronic), no facial asymmetry, gait and stance not assessed Results & Data Results & Data ([facility]) Vital Signs (Past 12 Hours) Vital Signs Temp Pulse Pulse Resp BP Pulse Ox 02/15/20 20:31 86 19 95 02/15/20 20:29 85 21 143/83 H 95 02/15/20 20:17 88 18 136/87 90 02/15/20 20:00 85 18 87 L 02/15/20 19:30 82 18 02/15/20 19:02 86 20 96 02/15/20 19:01 81 19 97 02/15/20 18:59 82 21 137/74 97 02/15/20 18:53 82 20 96 02/15/20 18:31 86 17 95 02/15/20 18:30 80 20 128/76 95 02/15/20 18:25 36.6 C 80 22 139/82 94 02/15/20 18:16 18 02/15/20 18:10 79 22 139/82 94 Laboratory Results Laboratory Results WBC 12.78 K/uL (4.8-10.8) H 02/15/20 19:16 RBC 5.24 M/uL (4.7-6.1) 02/15/20 19:16 Hgb 14.5 g/dL (14.0-18.0) 02/15/20 19:16 Hct 44.9 % (42-52) 02/15/20 19:16 MCV 85.7 fL (80-100) 02/15/20 19:16 MCH 27.7 pg (25-34) 02/15/20 19:16 MCHC 32.3 g/dL (32-36) 02/15/20 19:16 RDW Std Deviation 48.4 fL (36.4-46.3) H 02/15/20 19:16 RDW Coeff of [place]or 15.2 % (11.5-14.5) H 02/15/20 19:16 Plt Count 335 K/uL (130-400) 02/15/20 19:16 MPV 9.3 fL (7.4-10.4) 02/15/20 19:16 Immature Gran % (Auto) 0.2 % 02/15/20 19:16 Neut % (Auto) 70.7 % 02/15/20 19:16 Lymph % (Auto) 16.8 % 02/15/20 19:16 [place] % (Auto) 4.1 % 02/15/20 19:16 Eos % (Auto) 7.7 % 02/15/20 19:16 Baso % (Auto) 0.5 % 02/15/20 19:16 Neut # (Auto) 9.04 K/uL (1.4-6.5) H 02/15/20 19:16 Lymph # (Auto) 2.15 K/uL (1.2-3.4) 02/15/20 19:16 [place] # (Auto) 0.53 K/uL (0.11-0.59) 02/15/20 19:16 Eos # (Auto) 0.98 K/uL (0-0.5) H 02/15/20 19:16 Baso # (Auto) 0.06 K/uL (0-0.2) 02/15/20 19:16 Immature Gran # (Auto) 0.02 K/uL (0.00-0.02) 02/15/20 19:16 PT 18.4 Seconds (9.0-12.0) H 02/15/20 19:16 INR 1.8 (0.9-1.1) H 02/15/20 19:16 APTT 36.2 Seconds (21.0-31.0) H 02/15/20 19:16 PTT Ratio 1.3 02/15/20 19:16 Sodium 141 mmol/L (136-145) 02/15/20 19:16 Potassium 4.3 mmol/L (3.5-5.1) 02/15/20 19:16 Chloride 106 mmol/L (98-107) 02/15/20 19:16 Carbon Dioxide 29 mmol/L (21-32) 02/15/20 19:16 Anion Gap 6.0 (3-11) 02/15/20 19:16 BUN 20 mg/dl (7-18) H 02/15/20 19:16 Creatinine 1.20 mg/dl (0.6-1.4) 02/15/20 19:16 Est Cr Clr Drug Dosing 42.8 ml/min 02/15/20 19:16 Est GFR ( Amer) 64.0 02/15/20 19:16 Est GFR (Non-Af Amer) 55.2 02/15/20 19:16 BUN/Creatinine Ratio 16.8 (10-20) 02/15/20 19:16 Glucose 125 mg/dl (70-99) H 02/15/20 19:16 Calcium 9.1 mg/dl (8.5-10.1) 02/15/20 19:16 Magnesium 2.2 mg/dl (1.8-2.4) 02/15/20 19:16 Total Bilirubin 1.0 mg/dl (0.2-1) 02/15/20 19:16 AST 13 U/L (15-37) L 02/15/20 19:16 ALT 19 U/L (12-78) 02/15/20 19:16 Alkaline Phosphatase 62 U/L (45-117) 02/15/20 19:16 Troponin I 0.028 ng/ml (0-0.045) 02/15/20 19:16 Total Protein 7.8 gm/dl (6.4-8.2) 02/15/20 19:16 Albumin 3.9 gm/dl (3.4-5.0) 02/15/20 19:16 Globulin 3.9 gm/dl (2.5-4.0) 02/15/20 19:16 Albumin/Globulin Ratio 1.0 (0.9-2) 02/15/20 19:16 COVID-19 Eval Order Covid19 Done at [facility] 02/15/20 20:[address] chest initial read: Atherosclerotic disease of aorta without aneurysm. No aortic dissection. No pulmonary embolus. Nonspecific small lymph nodes within mediastinum. Unremarkable trachea and central bronchi. Borderline cardiomegaly with coronary calcification. No pleural effusion or pneumothorax. Mild posterior dependent atelectasis otherwise clear lungs. EKG as per my interpretation : Rate 80, NSR, normal axis, 1 AVB, inferior infarct
[2020-02-15] MEDS ORDERED: OPTIRAY 320 125ml IV ONE (22:32)
[2020-02-15 22:34] LABS: Base Excess ABG 3.2 mEq/L (-9-1.8); HCO3 ABG 28 mmol/L (19-24); Oxygen Saturation ABG 94.9 % (90-95); PCO2 ABG 44 mmHg (35-46); PO2 ABG 75 mmHg (80-95); pH ABG 7.42 (7.35-7.45)
[2020-02-15 22:57] LABS: Allen Test Pos (Pos)
--- NOTE | 2020-02-15 23:29 | Emergency Department Note ---
History of Present Illness General Chief complaint: Shortness of Breath/Dyspnea Source: patient, EMS and RN notes reviewed Mode of arrival: EMS Limitations: no limitations History of Present Illness Provider complaint: Shortness of breath This patient is an 84-year-old male who presents emergency department with com plaints of shortness of breath that began this morning. Patient called the ambulance because his nebulizer was not helping. He does have a history of COPD but feels there might be more to it today. Patient was found to have oxygen saturations in the 80s and was placed on oxygen by EMS. He was given IV Solu- Medrol and a DuoNeb treatment. He states he feels much better now. He denies currently being a smoker. 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 Patient denies any recent fevers, chills, chest pain, vomiting or diarrhea. He denies any known COVID exposures. Home Medications Home Medications Medication Instructions Recorded Confirmed Type insulin aspart U-100 100 unit/mL See Rx Instructions .ROUTE .COMPLEX 05/30/19 02/15/20 History subcutaneous cartridge cholecalciferol (vitamin D3) 1,000 unit PO QDD 08/04/19 02/15/20 History [Vitamin D3] metoprolol tartrate 25 mg PO BIDM 08/04/19 02/15/20 History docusate sodium [Colace] 100 mg PO QAM 09/11/19 02/15/20 History albuterol sulfate 1 puff INHALATION QID PRN 10/23/19 02/15/20 History albuterol sulfate 2.5 mg INHALATION QID PRN 10/23/19 02/15/20 History atorvastatin 10 mg PO QAM 11/14/19 02/15/20 History Lantus Solostar U-100 Insulin 18 unit SC HS 12/04/19 02/15/20 History warfarin 5 mg PO HS 12/04/19 02/15/20 History polyethylene glycol 3350 [Miralax] 17 gm PO DAILY PRN #30 ea 12/05/19 02/15/20 Rx Allergies Allergy/AdvReac Type Severity Reaction Status Date / Time No Known Allergies Allergy Verified 12/04/19 09:32 Past Med/Surg History Medical History Asthma inhaler/nebulizer prn Atrial fibrillation on xarelto BPH (benign prostatic hyperplasia) Chronic pansinusitis Diabetes mellitus, type 2 Dysarthria 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 Jerri Hayden @ [facility] Neurology Transient ischemic attack (TIA) 07/2018--no lasting deficits from that mini stroke Surgical History History of abdominal surgery removal of stomach cancer mass History of appendectomy History of bilateral cataract extraction History of esophagogastroduodenoscopy (EGD) History of gastric restrictive surgery History of nasal polypectomy History of prostate surgery History of tooth extraction most teeth removed Status post insertion of percutaneous endoscopic gastrostomy (PEG) tube Family History Brother Family history of diabetes mellitus Other No family history of adverse response to anesthesia No family history of bleeding disorder Social History Smoking Status: Never smoker Second Hand Exposure: No; Hx Alcohol Use: No Hx Substance Use: No Preferred Language: Upper Sorbian Communication Ability: Effective Dress Designer Required: No Beliefs That Will Affect Care: None marital status: Current Living Situation: Other Current Living Situation Comment: [place] current occupational status: retired Other Information That Helps Us Care for You: No Feels Safe at Home: Yes Safety Concerns: Feels Safe At This Time Assistive Devices: Oxygen - Continuous Review of Systems See HPI for pertinent positives & negatives. and A total of 10 systems reviewed and were otherwise negative Physical Exam Vital Signs Vital Signs - 24 hr 02/15/20 18:10 02/15/20 18:16 02/15/20 18:25 Temperature 36.6 C Temperature Source Oral Pulse Rate 79 80 Pulse Rate [Right Radial] Pulse Rate from SpO2 Sensor 79 Respiratory Rate 22 18 22 Respiratory Effort / Characteristics Non-Labored Spontaneous Respiratory Depth Normal Respiratory Pattern Regular Blood Pressure 139/82 139/82 Blood Pressure Mean 109 101 Pulse Oximetry 94 94 Oxygen Delivery Method Room Air Oxygen Flow Rate Sepsis Recent Fever Within 48 Hours No Sepsis New/Unexplained Change in Mental Status No Sepsis Action Taken by Nursing No Action Required Oxygen Flow Rate - Titration 3 Pulse Oximetry Post Tiitration 96 02/15/20 18:30 02/15/20 18:31 02/15/20 18:53 Temperature Temperature Source Pulse Rate 80 86 82 Pulse Rate [Right Radial] Pulse Rate from SpO2 Sensor 80 80 Respiratory Rate 20 17 20 Respiratory Effort / Characteristics Respiratory Depth Respiratory Pattern Blood Pressure 128/76 Blood Pressure Mean 92 Pulse Oximetry 95 95 96 Oxygen Delivery Method Nasal Cannula Nasal Cannula Nasal Cannula Oxygen Flow Rate 3 3 3 Sepsis Recent Fever Within 48 Hours Sepsis New/Unexplained Change in Mental Status Sepsis Action Taken by Nursing Oxygen Flow Rate - Titration Pulse Oximetry Post Tiitration 02/15/20 18:59 02/15/20 19:01 02/15/20 19:02 Temperature Temperature Source Pulse Rate 82 81 Pulse Rate [Right Radial] 86 Pulse Rate from SpO2 Sensor 82 80 Respiratory Rate 21 19 20 Respiratory Effort / Characteristics Spontaneous Respiratory Depth Respiratory Pattern Blood Pressure 137/74 Blood Pressure Mean 104 Pulse Oximetry 97 97 96 Oxygen Delivery Method Nasal Cannula Nasal Cannula Nasal Cannula Oxygen Flow Rate 3 3 3 Sepsis Recent Fever Within 48 Hours Sepsis New/Unexplained Change in Mental Status Sepsis Action Taken by Nursing Oxygen Flow Rate - Titration Pulse Oximetry Post Tiitration 02/15/20 19:30 02/15/20 20:00 02/15/20 20:17 Temperature Temperature Source Pulse Rate 82 85 88 Pulse Rate [Right Radial] Pulse Rate from SpO2 Sensor 85 88 Respiratory Rate 18 18 18 Respiratory Effort / Characteristics Respiratory Depth Respiratory Pattern Blood Pressure 136/87 Blood Pressure Mean 115 Pulse Oximetry 87 L 90 Oxygen Delivery Method Room Air Nasal Cannula Oxygen Flow Rate 3 Sepsis Recent Fever Within 48 Hours Sepsis New/Unexplained Change in Mental Status Sepsis Action Taken by Nursing Oxygen Flow Rate - Titration Pulse Oximetry Post Tiitration 02/15/20 20:29 02/15/20 20:31 02/15/20 20:59 Temperature Temperature Source Pulse Rate 85 86 Pulse Rate [Right Radial] Pulse Rate from SpO2 Sensor 86 86 87 Respiratory Rate 21 19 22 Respiratory Effort / Characteristics Respiratory Depth Respiratory Pattern Blood Pressure 143/83 H 142/75 H Blood Pressure Mean 110 103 Pulse Oximetry 95 95 93 Oxygen Delivery Method Nasal Cannula Nasal Cannula Nasal Cannula Oxygen Flow Rate 3 3 3 Sepsis Recent Fever Within 48 Hours Sepsis New/Unexplained Change in Mental Status Sepsis Action Taken by Nursing Oxygen Flow Rate - Titration Pulse Oximetry Post Tiitration 02/15/20 21:01 02/15/20 21:30 02/15/20 21:31 Temperature Temperature Source Pulse Rate Pulse Rate [Right Radial] Pulse Rate from SpO2 Sensor 87 87 86 Respiratory Rate 21 14 19 Respiratory Effort / Characteristics Respiratory Depth Respiratory Pattern Blood Pressure 133/92 Blood Pressure Mean 115 Pulse Oximetry 93 93 94 Oxygen Delivery Method Nasal Cannula Nasal Cannula Nasal Cannula Oxygen Flow Rate 3 3 3 Sepsis Recent Fever Within 48 Hours Sepsis New/Unexplained Change in Mental Status Sepsis Action Taken by Nursing Oxygen Flow Rate - Titration Pulse Oximetry Post Tiitration 02/15/20 22:00 02/15/20 22:01 Temperature Temperature Source Pulse Rate Pulse Rate [Right Radial] Pulse Rate from SpO2 Sensor 84 84 Respiratory Rate 18 19 Respiratory Effort / Characteristics Respiratory Depth Respiratory Pattern Blood Pressure 123/73 Blood Pressure Mean 82 Pulse Oximetry 95 95 Oxygen Delivery Method Nasal Cannula Nasal Cannula Oxygen Flow Rate 3 3 Sepsis Recent Fever Within 48 Hours Sepsis New/Unexplained Change in Mental Status Sepsis Action Taken by Nursing Oxygen Flow Rate - Titration Pulse Oximetry Post Tiitration Vital signs reviewed. General: Elderly and chronically ill appearing 84 yo male, in no significant distress. HEENT: No scleral icterus, PERRLA, neck supple. Hard of hearing Cardiovascular: Regular rate and rhythm, no extra sounds. Pulmonary: Coarse breath sounds bilaterally, normal work of breathing on n/c O2. Abdomen: Soft, nontender, nondistended, positive bowel sounds. Musculoskeletal: Atraumatic, no peripheral edema. Neurologic: Patient awake alert and answers questions appropriately Skin: Warm, dry, no rash Course Administered Medications Atorvastatin Calcium (Atorvastatin 10 Mg Tab) 10 mg PO [facility] Stop: 03/17/20 08:59 Last Admin: 02/18/20 08:15 Dose: 10 mg Documented by: [id number] Admin: 02/17/20 08:06 Dose: 10 mg Documented by: [id number] Admin: 02/16/20 08:43 Dose: 10 mg Documented by: [id number] Docusate Sodium (Docusate Sodium 100 Mg Cap) 100 mg PO [facility] Stop: 03/17/20 08:59 Last Admin: 02/18/20 08:15 Dose: 100 mg Documented by: [id number] Admin: 02/17/20 08:06 Dose: 100 mg Documented by: [id number] Admin: 02/16/20 08:41 Dose: 100 mg Documented by: [id number] Guaifenesin (Guaifenesin 600 Mg Tabcr) 600 mg PO Q12 [facility] Stop: 03/16/20 23:35 Last Admin: 02/18/20 08:16 Dose: 600 mg Documented by: [id number] Admin: 02/17/20 21:56 Dose: 600 mg Documented by: [id number] Admin: 02/17/20 08:05 Dose: 600 mg Documented by: [id number] Admin: 02/16/20 20:48 Dose: 600 mg Documented by: [id number] Admin: 02/16/20 08:41 Dose: 600 mg Documented by: [id number] Admin: 02/16/20 00:14 Dose: 600 mg Documented by: [id number] Insulin Aspart (Insulin Aspart 100 Units/Ml 3 Ml Pen) 0 units SC ACHS [facility] Stop: 03/16/20 23:35 Last Admin: 02/18/20 08:17 Dose: 3 units Documented by: [id number] Cosigned by: [id number] Admin: 02/17/20 21:56 Dose: 2 units Documented by: [id number] Cosigned by: [id number] Admin: 02/17/20 17:37 Dose: 4 units Documented by: [id number] Cosigned by: [id number] Admin: 02/17/20 13:18 Dose: 5 units Documented by: [id number] Cosigned by: [id number] Admin: 02/17/20 08:09 Dose: 5 units Documented by: [id number] Cosigned by: [id number] Admin: 02/16/20 20:49 Dose: 6 units Documented by: [id number] Cosigned by: [id number] Admin: 02/16/20 17:36 Dose: 8 units Documented by: [id number] Cosigned by: [id number] Admin: 02/16/20 12:06 Dose: 7 units Documented by: [id number] Cosigned by: [id number] Admin: 02/16/20 08:41 Dose: 4 units Documented by: [id number] Cosigned by: [id number] Admin: 02/16/20 00:13 Dose: 2 units Documented by: [id number] Cosigned by: [id number] Insulin Glargine (Insulin Glargine Solostar 100 Units/Ml 3 Ml Pen) 0 units SC HS [facility]; Protocol Stop: 03/18/20 20:59 Last Admin: 02/17/20 21:54 Dose: 18 units Documented by: [id number] Cosigned by: [id number] Ipratropium Sopchoppy (Ipratropium [place] Neb Soln 0.02% 2.5 Ml Vial) 0.5 mg INH Q6R [facility] Stop: 03/17/20 00:59 Last Admin: 02/18/20 07:03 Dose: 0.5 mg Documented by: [id number] Admin: 02/18/20 00:04 Dose: 0.5 mg Documented by: [id number] Admin: 02/17/20 19:07 Dose: 0.5 mg Documented by: [id number] Admin: 02/17/20 13:12 Dose: 0.5 mg Documented by: [id number] Admin: 02/17/20 07:02 Dose: 0.5 mg Documented by: [id number] Admin: 02/17/20 01:10 Dose: 0.5 mg Documented by: [id number] Admin: 02/16/20 19:10 Dose: 0.5 mg Documented by: [id number] Admin: 02/16/20 13:12 Dose: 0.5 mg Documented by: [id number] Admin: 02/16/20 06:53 Dose: 0.5 mg Documented by: [id number] Admin: 02/16/20 00:54 Dose: 0.5 mg Documented by: [id number] Levalbuterol HCl (Levalbuterol 1.25mg/0.5ml Neb) 1.25 mg INH Q6R [facility] Stop: 03/17/20 00:59 Last Admin: 02/18/20 07:03 Dose: 1.25 mg Documented by: [id number] Admin: 02/18/20 00:04 Dose: 1.25 mg Documented by: [id number] Admin: 02/17/20 19:07 Dose: 1.25 mg Documented by: [id number] Admin: 02/17/20 13:12 Dose: 1.25 mg Documented by: [id number] Admin: 02/17/20 07:02 Dose: 1.25 mg Documented by: [id number] Admin: 02/17/20 01:10 Dose: 1.25 mg Documented by: [id number] Admin: 02/16/20 19:10 Dose: 1.25 mg Documented by: [id number] Admin: 02/16/20 13:12 Dose: 1.25 mg Documented by: [id number] Admin: 02/16/20 06:53 Dose: 1.25 mg Documented by: [id number] Admin: 02/16/20 00:55 Dose: 1.25 mg Documented by: [id number] Metoprolol Tartrate (Metoprolol Tartrate 25 Mg Tab) 25 mg PO BIDM [facility] Stop: 03/19/20 00:34 Last Admin: 02/18/20 00:56 Dose: 25 mg Documented by: [id number] Miscellaneous (Carbohydrates For Hypoglycemia ) 15 - 30 gm PO UD PRN PRN Reason: Hypoglycemia Protocol Stop: 03/16/20 23:35 Last Admin: 02/18/20 07:45 Dose: 15 gm Documented by: [id number] Prednisone (Prednisone 20 Mg Tab) 40 mg PO DAILY [facility] Stop: 02/20/20 08:59 Last Admin: 02/18/20 08:15 Dose: 40 mg Documented by: [id number] Admin: 02/17/20 08:05 Dose: 40 mg Documented by: [id number] Admin: 02/16/20 08:41 Dose: 40 mg Documented by: [id number] Sodium Chloride (Sodium Chlor 7% 4 Ml Neb) 4 ml NEB BIDR [facility] Stop: 03/17/20 18:59 Last Admin: 02/18/20 07:03 Dose: 4 ml Documented by: [id number] Admin: 02/17/20 19:20 Dose: 4 ml Documented by: [id number] Admin: 02/17/20 07:03 Dose: 4 ml Documented by: [id number] Admin: 02/16/20 19:10 Dose: 4 ml Documented by: [id number] Warfarin Sodium (Warfarin Sod 5 Mg Tab) 5 mg PO DAILY@1600 [facility] Stop: 03/17/20 15:59 Last Admin: 02/17/20 16:11 Dose: 5 mg Documented by: [id number] Admin: 02/16/20 16:48 Dose: 5 mg Documented by: [id number] Discontinued Medications Albuterol (Albut/Ipratrop 3mg/0.5mg Neb 3 Ml Vial) 3 ml INH NOW STA Stop: 02/15/20 18:49 Last Admin: 02/15/20 18:58 Dose: 3 ml Documented by: [id number] Sodium Chloride (1/2 Nss) 1,000 mls @ 50 mls/hr IV .Q20H ONE Stop: 02/16/20 19:35 Last Infusion: 02/16/20 19:23 Dose: 0 mls/hr Documented by: [id number] Admin: 02/16/20 00:12 Dose: 50 mls/hr Documented by: [id number] Magnesium Sulfate/Dextrose (Magnesium Sulfate / D5w) 1 gm in 100 mls @ 50 mls/hr IV ONE ONE Stop: 02/18/20 02:33 Last Infusion: 02/18/20 03:00 Dose: 0 mls/hr Documented by: [id number] Admin: 02/18/20 00:57 Dose: 50 mls/hr Documented by: [id number] Insulin Aspart (Insulin Aspart 100 Units/Ml 3 Ml Pen) 5 units SC ONE ONE Stop: 02/16/20 18:01 Last Admin: 02/16/20 18:05 Dose: 5 units Documented by: [id number] Cosigned by: [id number] Insulin Aspart (Insulin Aspart 100 Units/Ml 3 Ml Pen) 0 units SC 0000,0400 [facility] Stop: 02/17/20 04:01 Last Admin: 02/17/20 04:28 Dose: Not Given Documented by: [id number] Cosigned by: [id number] Admin: 02/17/20 00:38 Dose: 3 units Documented by: [id number] Cosigned by: [id number] Insulin Glargine (Insulin Glargine Solostar 100 Units/Ml 3 Ml Pen) 10 units SC BID [facility] Stop: 03/16/20 23:35 Last Admin: 02/16/20 08:42 Dose: 10 units Documented by: [id number] Cosigned by: [id number] Admin: 02/16/20 00:12 Dose: 10 units Documented by: [id number] Cosigned by: [id number] Insulin Glargine (Insulin Glargine Solostar 100 Units/Ml 3 Ml Pen) 20 units SC ONE ONE Stop: 02/16/20 18:01 Last Admin: 02/16/20 18:06 Dose: 20 units Documented by: [id number] Cosigned by: [id number] Insulin Human NPH (Novolin-N (Nph) Per Unit Charge) 15 units SQ QDB ONE; Protocol Stop: 02/17/20 07:31 Last Admin: 02/17/20 08:10 Dose: 15 units Documented by: [id number] Cosigned by: [id number] Ioversol (Optiray 320 125ml) 120 ml IV ONCE ONE Stop: 02/15/20 22:33 Last Admin: 09/27/20 22:33 Dose: 120 ml Documented by: [id number] Methylprednisolone (Methylprednisolone 125 Mg/2 Ml Vial) 60 mg IV NOW STA Stop: 02/15/20 18:49 Last Admin: 02/15/20 19:07 Dose: 60 mg Documented by: [id number] Metoprolol Tartrate (Metoprolol Tartrate 25 Mg Tab) 25 mg PO BIDM [facility] Stop: 03/16/20 23:35 Last Admin: 02/17/20 16:11 Dose: 25 mg Documented by: [id number] Admin: 02/17/20 08:07 Dose: 25 mg Documented by: [id number] Admin: 02/16/20 16:49 Dose: 25 mg Documented by: [id number] Admin: 02/16/20 08:41 Dose: 25 mg Documented by: [id number] Admin: 02/16/20 00:14 Dose: 25 mg Documented by: [id number] Potassium Chloride (Potassium Chloride Pwd 20 Meq Pack) 40 meq PO NOW STA Stop: 02/18/20 00:35 Last Admin: 02/18/20 00:57 Dose: 40 meq Documented by: [id number] Warfarin Sodium (Warfarin Sod 5 Mg Tab) 5 mg PO NOW ONE Stop: 02/15/20 20:38 Last Admin: 02/15/20 20:51 Dose: 5 mg Documented by: [id number] Medical Decision Making Differential Diagnosis Differential diagnosis: Etiologies such as infections, reactive airway disease, COPD, pneumonia, pleural effusion, pulmonary edema, ARDS, pneumothorax, CHF, cardiac ischemia, cardiac tamponade, dysrhythmia, anemia, pulmonary embolism, musculoskeletal, gastrointestinal process, as well as others were entertained. Medical Records Attestation: I reviewed the patient's medical records. Home Medications Current Medication List: was personally reviewed by me Laboratory Data Attestation: I reviewed the patient's lab results. Result diagrams: 02/18/20 00:55 02/18/20 00:55 Lab Results 02/15/20 02/15/20 02/15/20 Range/Units 19:16 19:16 19:16 WBC 12.78 H (4.8-10.8) K/uL RBC 5.24 (4.7-6.1) M/uL Hgb 14.5 (14.0-18.0) g/dL Hct 44.9 (42-52) % MCV 85.7 (80-100) fL MCH 27.7 (25-34) pg MCHC 32.3 (32-36) g/dL RDW Std Deviation 48.4 H (36.4-46.3) fL RDW Coeff of Mainor 15.2 H (11.5-14.5) % Plt Count 335 (130-400) K/uL MPV 9.3 (7.4-10.4) fL Immature Gran % (Auto) 0.2 % Neut % (Auto) 70.7 % Lymph % (Auto) 16.8 % [place] % (Auto) 4.1 % Eos % (Auto) 7.7 % Baso % (Auto) 0.5 % Neut # (Auto) 9.04 H (1.4-6.5) K/uL Lymph # (Auto) 2.15 (1.2-3.4) K/uL [place] # (Auto) 0.53 (0.11-0.59) K/uL Eos # (Auto) 0.98 H (0-0.5) K/uL Baso # (Auto) 0.06 (0-0.2) K/uL Immature Gran # (Auto) 0.02 (0.00-0.02) K/uL PT 18.4 H (9.0-12.0) Seconds INR 1.8 H (0.9-1.1) APTT 36.2 H (21.0-31.0) Seconds PTT Ratio 1.3 Sodium 141 (136-145) mmol/L Potassium 4.3 (3.5-5.1) mmol/L Chloride 106 (98-107) mmol/L Carbon Dioxide 29 (21-32) mmol/L Anion Gap 6.0 (3-11) BUN 20 H (7-18) mg/dl Creatinine 1.20 (0.6-1.4) mg/dl Est Cr Clr Drug Dosing 42.8 ml/min Est GFR ( Amer) 64.0 Est GFR (Non-Af Amer) 55.2 BUN/Creatinine Ratio 16.8 (10-20) Glucose 125 H (70-99) mg/dl Calcium 9.1 (8.5-10.1) mg/dl Magnesium 2.2 (1.8-2.4) mg/dl Total Bilirubin 1.0 (0.2-1) mg/dl AST 13 L (15-37) U/L ALT 19 (12-78) U/L Alkaline Phosphatase 62 (45-117) U/L Troponin I 0.028 (0-0.045) ng/ml Total Protein 7.8 (6.4-8.2) gm/dl Albumin 3.9 (3.4-5.0) gm/dl Globulin 3.9 (2.5-4.0) gm/dl Albumin/Globulin Ratio 1.0 (0.9-2) COVID-19 Eval Order COVID-19 PCR (Negative) 02/15/20 02/15/20 Range/Units 20:46 20:46 WBC (4.8-10.8) K/uL RBC (4.7-6.1) M/uL Hgb (14.0-18.0) g/dL Hct (42-52) % MCV (80-100) fL MCH (25-34) pg MCHC (32-36) g/dL RDW Std Deviation (36.4-46.3) fL RDW Coeff of Mainor (11.5-14.5) % Plt Count (130-400) K/uL MPV (7.4-10.4) fL Immature Gran % (Auto) % Neut % (Auto) % Lymph % (Auto) % [place] % (Auto) % Eos % (Auto) % Baso % (Auto) % Neut # (Auto) (1.4-6.5) K/uL Lymph # (Auto) (1.2-3.4) K/uL [place] # (Auto) (0.11-0.59) K/uL Eos # (Auto) (0-0.5) K/uL Baso # (Auto) (0-0.2) K/uL Immature Gran # (Auto) (0.00-0.02) K/uL PT (9.0-12.0) Seconds INR (0.9-1.1) APTT (21.0-31.0) Seconds PTT Ratio Sodium (136-145) mmol/L Potassium (3.5-5.1) mmol/L Chloride (98-107) mmol/L Carbon Dioxide (21-32) mmol/L Anion Gap (3-11) BUN (7-18) mg/dl Creatinine (0.6-1.4) mg/dl Est Cr Clr Drug Dosing ml/min Est GFR ( Amer) Est GFR (Non-Af Amer) BUN/Creatinine Ratio (10-20) Glucose (70-99) mg/dl Calcium (8.5-10.1) mg/dl Magnesium (1.8-2.4) mg/dl Total Bilirubin (0.2-1) mg/dl AST (15-37) U/L ALT (12-78) U/L Alkaline Phosphatase (45-117) U/L Troponin I (0-0.045) ng/ml Total Protein (6.4-8.2) gm/dl Albumin (3.4-5.0) gm/dl Globulin (2.5-4.0) gm/dl Albumin/Globulin Ratio (0.9-2) COVID-19 Eval Order Covid19 Done at [facility] COVID-19 PCR NEGATIVE (Negative) Imaging Data Radiologist's Impression: XR chest 1V portable CLINICAL HISTORY: Dyspnea COMPARISON STUDY: Chest radiograph November 15, 2019. FINDINGS: Lung volumes are normal. Lungs are clear. There is no pneumothorax or pleural effusion. Cardiac size is normal. Mediastinal contours are normal. There is no evidence for pulmonary edema. IMPRESSION: No acute cardiopulmonary findings. ACT 112: Negative or not required by law. Electronically signed by: Arvind Rojo M.D. 02/15/2020 7:24 PM Dictated: 02/15/201918 Transcribed: 02/15/201918 ECG Data Attestation: I personally reviewed and interpreted this ECG as follows: Indication: + SOB/dyspnea Rate (beats per minute): 80 Rhythm: + sinus with SA ECG Intervals/blocks: + First degree AV block and + Normal QT-c ECG [place]: + Normal ECG ST segments: + Normal ST segments Additional Comments: No PVC, No PAC Blood Pressure Blood Pressure Findings: Elevated blood pressure Blood Pressure Disposition: further management by hospitalist KAT Narrative This pt was evaluated and appeared to be in no distress. IV access was obtained and lab work was drawn. An order for cardiac monitoring was placed and the pt was noted to be in a sinus rhythm with first degree AV block at 80 bpm. EKG confirmed this finding and no acute ischemia noted. Pt was stable on O2 but becomes hypoxic on RA. CXR is negative for acute process. Lab work was reassuring and INR is 1.8 d/t warfarin therapy. Pt was likely suffering from a COPD exacerbation and required more aggressive management. The hospitalist service was consulted and will evaluate for further care. Pt was made aware of the plan and agreed. Impression & Plan Acute exacerbation of chronic obstructive pulmonary disease, COPD with hypoxia Discharge Plan Visit Data Chief Complaint: Shortness of Breath/Dyspnea ED Provider: Keira Melgar Discharge Problem: Acute exacerbation of chronic obstructive pulmonary disease, COPD with hypoxia Patient Disposition: Admitted As Inpatient Discharge Instructions Interventions: ED Discharge Assessment Last Done: 02/15/20 23:08
[2020-02-15] MEDS ORDERED: SODIUM CHLORIDE 0.45 % 1,000 ML IV ONE (23:36)
[2020-02-15] MEDS ORDERED: GLUCOSE 10 TABS/TUBE PO PRN (23:36)
[2020-02-15] MEDS ORDERED: GLUCOSE 40% GEL 15 GM TUBE PO PRN (23:36)
[2020-02-15] MEDS ORDERED: POLYETHYLENE (MIRALAX) 17 GM PACK PO PRN (23:36)
[2020-02-15] MEDS ORDERED: ACETAMINOPHEN 325 MG TAB PO PRN (23:36)
[2020-02-15] MEDS ORDERED: GLUCAGON FOR INJ 1 MG VIAL SQ PRN (23:36)
[2020-02-15] MEDS ORDERED: PROMETHAZINE HCL 6.25 MG in SODIUM CHLORIDE 0.9% 50 ML IV PRN (23:36)
[2020-02-15] MEDS ORDERED: TRAMADOL HCL 50 MG TABLET PO PRN (23:36)
[2020-02-15] MEDS ORDERED: CARBOHYDRATES FOR HYPOGLYCEMIA PO PRN (23:36)
[2020-02-15] MEDS ORDERED: DEXTROSE 50% 50 ML SYRINGE IV PRN (23:36)
[2020-02-16] MEDS ORDERED: INFLUENZA ADMINISTRATION CHARGE ONE
[2020-02-16] MEDS ORDERED: INFLUENZA VACCINE HIGH DOSE 65+ 0.5 ML SYR IM ONE
[2020-02-16] MEDS: INSULIN GLARGINE SOLOSTAR 100 UNITS/ML 3 ML PEN SC SCH ×2 (00:12→08:42)
[2020-02-16] MEDS: INSULIN ASPART 100 UNITS/ML 3 ML PEN SC SCH ×5 (00:13→20:49)
[2020-02-16] MEDS: METOPROLOL TARTRATE 25 MG TAB PO SCH ×3 (00:14→16:49)
[2020-02-16] MEDS: guaiFENesin 600 MG TABCR PO SCH ×3 (00:14→20:48)
[2020-02-16] MEDS: IPRATROPIUM BROMIDE NEB SOLN 0.02% 2.5 ML VIAL INH SCH ×4 (00:54→19:10)
[2020-02-16] MEDS: LEVALBUTEROL 1.25MG/0.5ML NEB INH SCH ×4 (00:55→19:10)
[2020-02-16] MEDS ORDERED: XOPENEX/ATROVENT 1.25mg/0.5MG NEB COMBO NEB SCH (01:00)
[2020-02-16 07:05] LABS: Basophils # (auto) 0.01 K/uL (0-0.2); Basophils % (auto) 0.1 %; Eosinophils # (auto) 0.01 K/uL (0-0.5); Eosinophils % (auto) 0.1 %; Hematocrit (blood only) 45.5 % (42-52); Hemoglobin 14.6 g/dL (14.0-18.0); Immature Granulocytes # (auto) 0.03 K/uL (0.00-0.02); Immature Granulocytes % (auto) 0.3 %; Lymphocytes # (auto) 1.28 K/uL (1.2-3.4); Lymphocytes % (auto) 10.7 %; Mean Corpuscular Hemoglobin 27.2 pg (25-34); Mean Corpuscular Hgb Conc 32.1 g/dL (32-36); Mean Corpuscular Volume 84.7 fL (80-100); Mean Platelet Volume 9.5 fL (7.4-10.4); Monocytes # (auto) 0.07 K/uL (0.11-0.59); Monocytes % (auto) 0.6 %; Neutrophils # (auto) 10.59 K/uL (1.4-6.5); Neutrophils % (auto) 88.2 %; Platelet Count 319 K/uL (130-400); RDW Coefficient of Variation 14.9 % (11.5-14.5); RDW Standard Deviation 46.4 fL (36.4-46.3); Red Blood Count 5.37 M/uL (4.7-6.1); White Blood Count 11.99 K/uL (4.8-10.8)
[2020-02-16 07:16] LABS: INR 1.9 (0.9-1.1); Prothrombin Time 19.4 Seconds (9.0-12.0)
[2020-02-16 07:37] LABS: BUN Creatinine Ratio 25.3 (10-20); Calcium 9.3 mg/dl (8.5-10.1); Creatinine Clr Calc Pharmacy 46.7 ml/min; Est GFR (African American) 71.1; Est GFR (Non-African American) 61.3; Potassium 4.3 mmol/L (3.5-5.1)
--- NOTE | 2020-02-16 08:14 | CT Scan Report ---
CT ANGIOGRAPHY OF THE CHEST, PULMONARY EMBOLUS PROTOCOL CLINICAL HISTORY: Shortness of breath, pleuritic cp COMPARISON STUDY: Chest radiograph November 15, 2019 and February 15, 2020. TECHNIQUE: Following IV administration of 120 mL of Optiray-320, helical axial images of the chest we re obtained utilizing the pulmonary embolus protocol. Maximal intensity projections and sagittal and coronal reformats were viewed on an independent 3D workstation. IV contrast was administered withou t complication. Automated exposure control was utilized for the study. A dose lowering technique wa s utilized adhering to the principles of ALARA. CT DOSE: 296.16 mGy.cm FINDINGS: No pulmonary embolus is identified. There is no thoracic aortic dissection. Moderate coron esthela artery calcification is noted. There is no pericardial effusion. No pneumothorax or pleural effus ion is noted. Mild groundglass opacities favor atelectasis. There is bronchial wall thickening, most evident within the lower lobes. Bony thorax is unremarkable. Upper abdomen is unremarkable. IMPRESSION: 1. No pulmonary emboli identified. 2. Bronchial wall thickening, most evident within the lower lobes. 3. Mild groundglass opacities which favor atelectasis. 4. Moderate coronary artery calcification. ACT 112: Negative or not required by law. Electronically signed by: Arvind Rojo M.D. 02/16/2020 8:13 AM
[2020-02-16] MEDS: DOCUSATE SODIUM 100 MG CAP PO SCH (08:41)
[2020-02-16] MEDS: predniSONE 20 MG TAB PO SCH (08:41)
[2020-02-16] MEDS: ATORVASTATIN 10 MG TAB PO SCH (08:43)
[2020-02-16 09:55] LABS: Estimated Average Glucose 148 mg/dl; Hemoglobin A1C 6.8 % (4.5-5.6)
[2020-02-16] MEDS: WARFARIN SOD 5 MG TAB PO SCH (16:48)
[2020-02-16] MEDS ORDERED: PHARMACY GLYCEMIC MGMT CONSULT PRN (17:52)
[2020-02-16] MEDS ORDERED: INSULIN ASPART 100 UNITS/ML 3 ML PEN SC ONE (18:00)
[2020-02-16] MEDS ORDERED: INSULIN GLARGINE SOLOSTAR 100 UNITS/ML 3 ML PEN SC ONE (18:00)
--- NOTE | 2020-02-16 18:25 | Hospitalist Progress Note ---
Date of Service February 16, 2020 Assessment & Plan (1) Acute hypoxemic respiratory failure: Secondary to viral bronchitis -- add hypertonic saline to nebs continue Xopenex/Atrovent, Mucinex, Prednisone 40mg daily monitor PAF on Coumadin, patient NSR, INR slightly subtherapeutic -- continue coumadin 5mg po daily INR daily hypertension, slightly elevated -- monitor hyperlipidemia on statin Rx DM 2 insulin requiring, reasonable control as of recent hemoglobin A1c of 7.21 October 2019 -- Pharmacy Glycemic control consult chronic anemia, hemoglobin better than baseline likely secondary to hemoconcentration from mild dehydration DVT prophylaxis. Coumadin INR goal between 2 and 3 Full code Disposition PT/OT elijah lives at home, independent Admission and Anticipated Discharge Date Admission Date: February 15, 2020 Subjective ff up for acute bronchitis seen resting in bed, comfortable on 2 L o2 via nasal cannula states he feels improved compared to yesterday still has dry cough no chest pain, fever/chills no abdominal pain, nausea/vomiting no SOB denies other symptoms Review of Systems Review of Systems: All systems reviewed & are unremarkable except as noted in Subjective Physical Exam Physical Exam: General- oriented x 2, not in distress, speaks in sentences with no effort or accessory muscle use Eyes- anicteric Neck- no JVD Lungs- mild expiratory wheeze at the bases Heart- normal rate, regular rhythm; no murmurs Abdomen- normal bowel sounds, nondistended, soft, nontender Extremities- no pretibial edema, no calf tenderness Neuro- alert, oriented x 3; no gross focal neurologic deficits Skin- warm & dry Results & Data Results & Data ([facility]) Vital Signs (Past 12 Hours) Vital Signs Temp Pulse Pulse Resp BP Pulse Ox Pulse Ox 02/16/20 15:25 82 02/16/20 15:10 36.7 C 84 18 112/66 97 02/16/20 13:12 81 18 96 02/16/20 10:54 36.5 C 81 18 129/70 96 02/16/20 10:37 95 02/16/20 07:55 36.4 C L 85 21 132/76 95 02/16/20 07:13 79 02/16/20 06:53 76 18 97 Pulse Ox 02/16/20 15:25 02/16/20 15:10 02/16/20 13:12 02/16/20 10:54 02/16/20 10:37 92 02/16/20 07:55 02/16/20 07:13 02/16/20 06:53
[2020-02-16] MEDS: SODIUM CHLOR 7% 4 ML NEB NEB SCH (19:10)
--- NOTE | 2020-02-16 20:35 | Pharmacy Report ---
Glycemic Control Consultation - Date of Service February 16, 2020 - Scope Scope: Glycemic Pharmacist consulted for glycemic control and to write orders per [facility] inpatient glycemic control protocol. - Objective Weight: 78 kg [place] BSG (last 24hrs): 02/15/20 02/16/20 02/16/20 23:36 06:28 07:21 Glucose 217 H POC Glucose 211 H 220 H 02/16/20 02/16/20 11:18 16:33 Glucose POC Glucose 245 H 267 H Laboratory Data (last 24hrs): 02/16/20 06:28 Potassium 4.3 Carbon Dioxide 26 Anion Gap 7.0 Creatinine 1.10 Est Cr Clr Drug Dosing 46.7 HbA1c: Hemoglobin A1c 6.8 % (4.5-5.6) H 02/16/20 06:28 - Recent Pertinent Medications Outpatient Anti-diabetic Regimen: * Lantus 18 units SC HS * Novolog SSI * 0-200 mg/dL - 0 units * 201-250 mg/dL - 2 units * 251-300 mg/dL - 4 units * 301-350 mg/dL - 6 units * 351-400 mg/dL - 8 units * Over 400 mg/dL - call [facility] * A1c = 6.8 % (02/16/20) The patient is currently receiving: * Basal insulin: Lantus 10 units every 12 hours * Correctional Insulin: Novolog Correction per scale ACHS Goal Range: Low 140 mg/dL - High 180 mg/dL Correction Factor: 25 mg/dL/unit * Prandial insulin: Per carb ratio of 1 unit per 15 grams CHO consumed Risk Factors for Insulin Resistance: * Steroids: Prednisone 40 mg PO daily * Diet: T2DM - Assessment & Plan Assessment & Plan: ASSESSMENT: * SHIELA is a 84 year old male admitted on 02/15/20 for acute hypoxemic respiratory failure secondary to viral bronchitis * Patient ordered prednisone 40 mg PO daily * BSGs persistently elevated during admission 211, 220, 245, and 267 mg/dL * Pharmacy consulted for glycemic management at dinnertime on 02/15 for BSG of 267 mg/dL * Patient received 10 units of Lantus this morning - will add 20 units of Lantus this evening to equal 30 units today (or ~0.4 unit/kg). Will tighten Novolog given persistent BSG elevation. PLAN FOR INPATIENT GLYCEMIC CONTROL: * Basal insulin - increase * Lantus 20 units x 1 given at time of consult for daily dose of 30 units * Will have AM pharmacist evaluate ongoing basal dose with prednisone * Bolus insulin - Tighten * NovoLog per scale ACHS or Q6hrs while NPO * Goal Range: Low 120 mg/dL - High 160 mg/dL * Correction Factor: 20 mg/dL/unit * Nutritional / Prandial insulin per carb ratio of 1 unit per 7 grams CHO consumed * 00,04 checks with same parameters * Please note that the plan above was derived based on current level of insulin resistance and hospital stress. These recommendations are appropriate for inpatient admission only. Plan of care upon discharge will need to be reassessed to avoid potential outpatient hypo/hyperglycemia. Thank you.
[2020-02-16] MEDS ORDERED: guaiFENesin 600 MG TABCR PO SCH (21:00)
[2020-02-17] MEDS: INSULIN ASPART 100 UNITS/ML 3 ML PEN SC SCH ×6 (00:38→21:56)
[2020-02-17] MEDS: IPRATROPIUM BROMIDE NEB SOLN 0.02% 2.5 ML VIAL INH SCH ×4 (01:10→19:07)
[2020-02-17] MEDS: LEVALBUTEROL 1.25MG/0.5ML NEB INH SCH ×4 (01:10→19:07)
--- NOTE | 2020-02-17 05:37 | Electrocardiogram Report ---
Test Reason : Blood Pressure : / mmHG Vent. Rate : 079 BPM Atrial Rate : 079 BPM P-R Int : 244 ms QRS Dur : 072 ms QT Int : 400 ms P-R-T Axes : 081 026 070 degrees QTc Int : 458 ms Poor data quality, interpretation may be adversely affected Possible Sinus rhythm with 1st degree A-V block Nonspecific T wave abnormality Abnormal ECG When compared with ECG of 14-NOV-2019 06:51, Significant artifact makes rhythm interpretation difficult on current study Confirmed by Darrel Rutledge ([id number]) on 02/17/2020 5:37:15 AM Referred By: REFERRED SELF Confirmed By:Darrel Rutledge
--- NOTE | 2020-02-17 05:38 | Electrocardiogram Report ---
Test Reason : Blood Pressure : / mmHG Vent. Rate : 080 BPM Atrial Rate : 080 BPM P-R Int : 260 ms QRS Dur : 086 ms QT Int : 380 ms P-R-T Axes : 081 034 081 degrees QTc Int : 438 ms Sinus rhythm with sinus arrhythmia with 1st degree A-V block Otherwise normal ECG When compared with ECG of 15-FEB-2020 18:17, Significant artifact has improved Confirmed by Darrel Rutledge ([id number]) on 02/17/2020 5:38:14 AM Referred By: REFERRED SELF Confirmed By:Darrel Rutledge
[2020-02-17 06:19] LABS: INR 3.3 (0.9-1.1); Prothrombin Time 32.4 Seconds (9.0-12.0)
[2020-02-17 06:38] LABS: BUN Creatinine Ratio 26.8 (10-20); Calcium 8.4 mg/dl (8.5-10.1); Creatinine Clr Calc Pharmacy 47.2 ml/min; Est GFR (African American) 71.9; Potassium 3.8 mmol/L (3.5-5.1)
[2020-02-17] MEDS: SODIUM CHLOR 7% 4 ML NEB NEB SCH ×2 (07:03→19:20)
[2020-02-17] MEDS ORDERED: NovoLIN-N (NPH) PER UNIT CHARGE SQ ONE (07:30)
[2020-02-17] MEDS: predniSONE 20 MG TAB PO SCH (08:05)
[2020-02-17] MEDS: guaiFENesin 600 MG TABCR PO SCH ×2 (08:05→21:56)
[2020-02-17] MEDS: DOCUSATE SODIUM 100 MG CAP PO SCH (08:06)
[2020-02-17] MEDS: ATORVASTATIN 10 MG TAB PO SCH (08:06)
[2020-02-17] MEDS: METOPROLOL TARTRATE 25 MG TAB PO SCH ×2 (08:07→16:11)
--- NOTE | 2020-02-17 12:31 | Pharmacy Report ---
Pharmacy Glycemic Short Note 2 - Date of Service February 17, 2020 - Glycemic Short BSG Results (Last 24 hours): 02/16/20 02/16/20 02/17/20 16:33 20:26 00:35 Glucose POC Glucose 267 H 277 H 213 H 02/17/20 02/17/20 02/17/20 04:25 05:24 07:31 Glucose 112 H POC Glucose 128 H 128 H 02/17/20 11:26 Glucose POC Glucose 140 H Outpatient Anti-diabetic Regimen: * Lantus 18 units SC HS * Novolog SSI * 0-200 mg/dL - 0 units * 201-250 mg/dL - 2 units * 251-300 mg/dL - 4 units * 301-350 mg/dL - 6 units * 351-400 mg/dL - 8 units * Over 400 mg/dL - [facility] * A1c = 6.8 % (02/16/20) Risk Factors for Insulin Resistance: * Steroids: Prednisone 40 mg PO daily * Diet: T2DM ASSESSMENT: 02/16 * AM fasting BSG in goal range. However, to account for effects of prednisone, will give NPH in the AM. To make transitioning back to the patient's outpatient regimen easier, will use Lantus in the PM * Current Novolog parameters appropriate and controlling BSG's well from breakfast to lunch today 02/15 * SHIELA is a 84 year old male admitted on 02/15/20 for acute hypoxemic respiratory failure secondary to viral bronchitis * Patient ordered prednisone 40 mg PO daily * BSGs persistently elevated during admission 211, 220, 245, and 267 mg/dL * Pharmacy consulted for glycemic management at dinnertime on 02/15 for BSG of 267 mg/dL * Patient received 10 units of Lantus this morning - will add 20 units of Lantus this evening to equal 30 units today (or ~0.4 unit/kg). Will tighten Novolog given persistent BSG elevation. PLAN FOR INPATIENT GLYCEMIC CONTROL: * Basal insulin * NPH 15 units SC x1 today * Lantus 18-25 units SQ HS * Bolus insulin * NovoLog per scale ACHS or Q6hrs while NPO * Goal Range: Low 120 mg/dL - High 160 mg/dL * Correction Factor: 20 mg/dL/unit * Nutritional / Prandial insulin per carb ratio of 1 unit per 7 grams CHO consumed
[2020-02-17] MEDS: WARFARIN SOD 5 MG TAB PO SCH (16:11)
[2020-02-17] MEDS ORDERED: INSULIN GLARGINE SOLOSTAR 100 UNITS/ML 3 ML PEN SC SCH (21:00)
[2020-02-18] MEDS: IPRATROPIUM BROMIDE NEB SOLN 0.02% 2.5 ML VIAL INH SCH ×3 (00:04→13:36)
[2020-02-18] MEDS: LEVALBUTEROL 1.25MG/0.5ML NEB INH SCH ×3 (00:04→13:36)
[2020-02-18] MEDS ORDERED: MAGNESIUM SULFATE / D5W 1 GM/100 ML BAG IV ONE (00:34)
[2020-02-18] MEDS ORDERED: POTASSIUM CHLORIDE PWD 20 MEQ PACK PO STA (00:34)
[2020-02-18] MEDS ORDERED: METOPROLOL TARTRATE 25 MG TAB PO SCH (00:35)
[2020-02-18 01:06] LABS: Hematocrit (blood only) 42.4 % (42-52); Immature Granulocytes # (auto) 0.07 K/uL (0.00-0.02); Immature Granulocytes % (auto) 0.4 %; Lymphocytes # (auto) 2.15 K/uL (1.2-3.4); Lymphocytes % (auto) 10.8 %; Mean Corpuscular Hemoglobin 27.6 pg (25-34); Mean Corpuscular Volume 83.6 fL (80-100); Mean Platelet Volume 9.4 fL (7.4-10.4); Monocytes # (auto) 0.84 K/uL (0.11-0.59); Monocytes % (auto) 4.2 %; Neutrophils # (auto) 16.76 K/uL (1.4-6.5); Neutrophils % (auto) 84.6 %; Platelet Count 339 K/uL (130-400); RDW Coefficient of Variation 15.3 % (11.5-14.5); RDW Standard Deviation 46.8 fL (36.4-46.3); Red Blood Count 5.07 M/uL (4.7-6.1); White Blood Count 19.82 K/uL (4.8-10.8)
--- NOTE | 2020-02-18 01:17 | Hospitalist Progress Note ---
Date of Service February 18, 2020 Assessment & Plan (1) Acute hypoxemic respiratory failure: Secondary to viral bronchitis -- improving off O2 supplement - continue hypertonic saline, nebs continue Xopenex/Atrovent, Mucinex, Prednisone 40mg daily--> taper -- 2 step exercise test prior to discharge PAF on Coumadin -- patient NSR -- continue coumadin 5mg po daily INR daily Hypertension -- continue Metoprolol Hyperlipidemia on statin Rx DM 2 insulin requiring, reasonable control as of recent hemoglobin A1c of 7.21 October 2019 -- Pharmacy Glycemic control consult Chronic anemia -- Hg stable DVT prophylaxis. on coumadin Full code Disposition PT/OT elijah lives at home, independent will need 2 step exercise test Admission and Anticipated Discharge Date Admission Date: February 15, 2020 Subjective ff up for viral bronchitis seen resting in bed, comfortable off oxygen supplement states he feels improved today breathing is improving, no sputum ambulated in the hallways with minimal dyspnea no other symptoms Review of Systems Review of Systems: All systems reviewed & are unremarkable except as noted in Subjective Physical Exam Physical Exam: General- oriented x 3, not in distress, speaks in sentences wit h no effort or accessory muscle use Eyes- anicteric Neck- no JVD Lungs- mild expiratory wheeze bilaterally no crackles Heart- normal rate, regular rhythm; no murmurs Abdomen- normal bowel sounds, nondistended, soft, nontender Extremities- no pretibial edema, no calf tenderness Neuro- alert, oriented x 3; no gross focal neurologic deficits Skin- warm & dry Results & Data Results & Data ([facility]) Vital Signs (Past 12 Hours) Vital Signs Temp Pulse Pulse Resp BP BP Pulse Ox 02/18/20 00:05 101 H 18 93 02/17/20 23:47 86 02/17/20 22:30 36.4 C L 84 18 150/75 H 93 02/17/20 19:20 65 20 99 02/17/20 19:08 68 18 88 L 02/17/20 18:58 36.4 C L 70 18 117/66 91 02/17/20 15:55 75 02/17/20 15:23 36.7 C 75 18 125/71 90 02/17/20 13:13 73 16 96 Laboratory Results noted and reviewed
[2020-02-18 01:24] LABS: INR 3.6 (0.9-1.1)
[2020-02-18 01:27] LABS: BUN Creatinine Ratio 29.1 (10-20); Calcium 8.5 mg/dl (8.5-10.1); Creatinine Clr Calc Pharmacy 48.5 ml/min; Est GFR (African American) 74.3; Est GFR (Non-African American) 64.1; Magnesium 2.4 mg/dl (1.8-2.4); Potassium 4.1 mmol/L (3.5-5.1)
[2020-02-18] MEDS: SODIUM CHLOR 7% 4 ML NEB NEB SCH (07:03)
[2020-02-18] MEDS: predniSONE 20 MG TAB PO SCH (08:15)
[2020-02-18] MEDS ORDERED: NovoLIN-N (NPH) PER UNIT CHARGE SQ ONE (08:15)
[2020-02-18] MEDS: DOCUSATE SODIUM 100 MG CAP PO SCH (08:15)
[2020-02-18] MEDS: ATORVASTATIN 10 MG TAB PO SCH (08:15)
[2020-02-18] MEDS: guaiFENesin 600 MG TABCR PO SCH (08:16)
[2020-02-18] MEDS: INSULIN ASPART 100 UNITS/ML 3 ML PEN SC SCH ×2 (08:17→13:12)
--- NOTE | 2020-02-18 11:29 | Discharge Summary ---
Date of Service February 18, 2020 Admission HPI Per Admitting Provider History obtained from patient and records. Medical history significant for PAF on Coumadin, hypertension, hyperlipidemia, DM 2 insulin requiring, chronic anemia (baseline hemoglobin 12-13). Last confinement November 2019 for constipation symptoms. Few days history of dry cough symptoms with pleuritic chest pain and shortness of breath. No weight gain. No known sick contacts. No fever, no chills. O2 sats found to be 80s on room air by EMS. Patient given Solu-Medrol and neb treatment on route to the hospital. 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 Admission Exam Per Admitting Provider GENERAL: Slightly uncomfortable, dysarthric (chronic), hyponasal voice, no respiratory distress SKIN: Normal color, warm HEENT: [place] palpebral conjunctivae, no ptosis, dry buccal mucosa, nasal cannula in place NECK : Supple, no tenderness CHEST : CTA, no tenderness HEART : RRR, no obvious murmurs ABDOMEN: Some distention, nontender EXTREMITIES : No LE swelling/tenderness, no other conspicuous deformities noted NEUROLOGIC : Coherent, dysarthric (chronic), no facial asymmetry, gait and stance not assessed Principal Diagnosis Acute hypoxic respiratory failure Acute bronchitis Discharge Exam Constitutional + well hydrated; no acute distress Eyes PERRL, conjunctivae normal, anicteric sclerae ENMT external ear and nose normal, oropharynx normal Respiratory normal respiratory effort, lungs clear to auscultation Cardiovascular RRR, no murmur, no edema Gastrointestinal (Abdomen) normal bowel sounds, soft, nontender, no hepatosplenomegaly Musculoskeletal no cyanosis or clubbing, extremities motor strength 5/5 Neurologic PERRL, EOMI, accommodation nl, no face palsy, no dysarthria Psychiatric A+Ox3, euthymic affect Discharge Data Allergies Allergy/AdvReac Type Severity Reaction Status Date / Time No Known Allergies Allergy Verified 12/04/19 09:32 Consultations 02/15/20 20:24 ED Decision to Admit Stat Ordered Studies 02/15/20 22:04 CT angio chest PE protocol Urgent No pulmonary embolus is identified. There is no thoracic aortic dissection. Moderate coronary artery calcification is noted. There is no pericardial effusion. No pneumothorax or pleural effusion is noted. Mild groundglass opacities favor atelectasis. There is bronchial wall thickening, most evident within the lower lobes. Bony thorax is unremarkable. Upper abdomen is unremarkable. IMPRESSION: 1. No pulmonary emboli identified. 2. Bronchial wall thickening, most evident within the lower lobes. 3. Mild groundglass opacities which favor atelectasis. 4. Moderate coronary artery calcification. Hospital Course (1) Acute hypoxemic respiratory failure: Secondary to viral bronchitis Hypoxia resolved Required nasal oxygen which has successfully been weaned off. No desaturation on ambulation Treated with hypertonic saline, nebs and prednisone 40mg Continue Xopenex/Atrovent, Mucinex Discharged on prednisone for another 2 days Leukocytosis today increased from 12 on admission to 19 today, likely due to steroids PAF on Coumadin Currently normal sinus rhythm INR is supratherapeutic today 3.6 Advised to hold the dose of today and resume warfarin tomorrow Check INR in 2 days and follow up management with PCP Hypertension Continue Metoprolol Hyperlipidemia Continue statin DM 2 Continue home insulin regimen Recent hemoglobin A1c of 7.21 October 2019 Got DM education while inpatient Chronic anemia Hb normal during hospitalizaton. Was 14 Total Time Total Time Spent Total Time Spent (In Minutes): 45 Total Time Includes: Examination of the Patient, Discharge Planning, Medication Reconciliation and Other (Discussing plan with patient. Also called daughter to discuss plan with her per patient's request) Discharge Plan Discharge Items Patient Disposition: Home - Self-Care Reason For Visit: RESP FAILURE,COVID NEG,DC ISOL Discharge Diagnosis: Acute hypoxic respiratory failure Acute bronchitis Condition on Discharge: Good Activity: Resume your previous activity Non-emergency contact: Primary Care Provider Call non-emergency contact if: you have any medication questions Follow-up/Referrals: Carmen Dukes DO [Outside Practitioners] - 02/23/20 11:20 am (Date & Time 02/23/2020 11:20 AM Provider Carmen Dukes DO [facility] ) Tamie Leung PA-C [Primary Care Provider] - Diet: Carb Consistent or DM2 and Heart Healthy Ambulatory Orders: Prothrombin Time INR (Routine) Timeframe: 2 Days Location: Determined by Patient Ordered By: Maite Domínguez Attending Provider Instructions: Mr Adams. You came to the hospital complaining of cough and chest pain with cough. You were evaluated and managed for acute bronchitis You required oxygen while in the hospital. Your symptoms resolved You are being discharged on 2 more days of prednisone. Please hold off taking your warfarin today. You can resume tomorrow. Please check your INR in 2 days and follow up with anticoagulation clinic. It was a pleasure taking care of you. Please follow up with your Primary Doctor. Pending Studies at Discharge: No Stand-Alone Forms: My [facility], Smoking Cessation Medications and DC Order Prescriptions: New prednisone 20 mg Tablet 40 mg PO DAILY 2 Days Qty: 4 RF: 0 guaifenesin [Mucinex] 600 mg Tablet Extended Release 12hr 600 mg PO Q12 3 Days Qty: 6 RF: 0 Continued insulin aspart U-100 [Novolog PenFill U-100 Insulin] 100 unit/mL cartridge See Rx Instructions .ROUTE .COMPLEX RF: 0 docusate sodium [Colace] 100 mg Capsule 100 mg PO QAM RF: 0 atorvastatin 20 mg Tablet 10 mg PO QAM RF: 0 warfarin 2.5 mg Tablet 5 mg PO HS RF: 0 Lantus Solostar U-100 Insulin 100 unit/mL (3 mL) insulin pen 18 unit SC HS RF: 0 polyethylene glycol 3350 [Miralax] 17 gram powder in packet 17 gm PO DAILY PRN (Reason: constipation) Qty: 30 RF: 0 metoprolol tartrate 25 mg Tablet 25 mg PO BIDM RF: 0 cholecalciferol (vitamin D3) [Vitamin D3] 25 mcg (1,000 unit) Tablet 1,000 unit PO QDD RF: 0 albuterol sulfate 2.5 mg /3 mL (0.083 %) Solution For Nebulization 2.5 mg INHALATION QID PRN (Reason: Shortness Of Breath) RF: 0 albuterol sulfate 90 mcg/actuation Hfa Aerosol Inhaler 1 puff INHALATION QID PRN (Reason: Shortness Of Breath) RF: 0 Discharge Orders: Discharge Order (Routine); Ordered 02/18/20 Ordered By: Maite Santa/Other Patient Handouts: Managing Type 2 Diabetes Admission Data Admit Date/Time: 02/15/20 22:07 Attending Provider: Maite Fagan I. Admit Provider: Shade Matos Primary Care Provider: Tamie Leung Other Providers: Shade Matos ; [facility] ; Ruben Connolly Other Interventions: Discharge Summary Assessment (RN) Last Done: 02/18/20 14:29
== END 2020-02-18 15:02 | disposition home health service (06) | DRG 202 ==
LOC: ED 18:06 → 2N 22:07 → SUATTDRO 22:07 → 2N 23:08

== ENCOUNTER 2021-04-26 15:07 | Inpatient (IN) ==
[2021-04-26] MEDS ORDERED: FAMOTIDINE 20MG IV PUSH 20 MG/5 ML SYR IV STA (15:12)
[2021-04-26] MEDS ORDERED: ONDANSETRON INJ 2 MG/ML 2 ML VIAL IV STA (15:12)
[2021-04-26] MEDS ORDERED: ALBUT/IPRATROP 3MG/0.5MG NEB 3 ML VIAL NEB ONE (15:12)
[2021-04-26] MEDS ORDERED: ACETAMINOPHEN 1,000 MG/100 ML VIAL IV STA (15:12)
[2021-04-26] MEDS ORDERED: SODIUM CHLORIDE 0.9% 1000ML 1,000 ML IV ONE (15:12)
[2021-04-26] MEDS ORDERED: methylPREDNISolone 125 MG/2 ML VIAL IV STA (15:12)
[2021-04-26 15:57] LABS: Basophils # (auto) 0.03 K/uL (0-0.2); Basophils % (auto) 0.2 %; Eosinophils # (auto) 0.12 K/uL (0-0.5); Eosinophils % (auto) 0.8 %; Hematocrit (blood only) 46.5 % (42-52); Hemoglobin 15.2 g/dL (14.0-18.0); Immature Granulocytes # (auto) 0.03 K/uL (0.00-0.02); Immature Granulocytes % (auto) 0.2 %; Lymphocytes # (auto) 2.32 K/uL (1.2-3.4); Lymphocytes % (auto) 14.7 %; Mean Corpuscular Hemoglobin 28.6 pg (25-34); Mean Corpuscular Hgb Conc 32.7 g/dL (32-36); Mean Corpuscular Volume 87.4 fL (80-100); Mean Platelet Volume 10.2 fL (7.4-10.4); Monocytes # (auto) 1.17 K/uL (0.11-0.59); Monocytes % (auto) 7.4 %; Neutrophils # (auto) 12.16 K/uL (1.4-6.5); Neutrophils % (auto) 76.7 %; Platelet Count 311 K/uL (130-400); RDW Coefficient of Variation 14.8 % (11.5-14.5); RDW Standard Deviation 47.8 fL (36.4-46.3); Red Blood Count 5.32 M/uL (4.7-6.1); White Blood Count 15.83 K/uL (4.8-10.8)
[2021-04-26 16:03] LABS: INR 1.9 (0.9-1.1); Partial Thromboplastin Ratio 1.1; Partial Thromboplastin Time 29.8 Seconds (21.0-31.0); Prothrombin Time 18.2 Seconds (9.0-12.0)
--- NOTE | 2021-04-26 16:05 | Emergency Department Note ---
Impression & Plan Pneumonia, COPD (chronic obstructive pulmonary disease), Acute and chronic respiratory failure with hypoxia ED Provider Note NAME: LIGIA NOBLES Jr AGE: 85 SEX: M ARRIVES VIA: Ambulance INFORMANT: Patient CHIEF COMPLAINT: SOB PLAN: Disposition: Admit MEDICAL DECISION MAKING: The patient is a pleasant 85-year-old gentleman with a past medical history of COPD with chronic hypoxic respiratory failure, type 2 diabetes, hypertension who presents to the emergency department with acute worsening of shortness of breath with sense of being unable to breathe which she reports began today and developed nausea and vomiting. HPI is limited due to the patient's acute on chronic respiratory failure where he is barely able to get words out. On arrival the patient is in severe respiratory distress, tachypneic in the 30s with labored breathing/accessory muscle use with diminished breath sounds throughout and prolonged expiratory phase, O2 saturation was in the low 80s on room air on 6 L nasal cannula and did not improve with nonrebreather. He appears clinically dry. Given his acute respiratory failure suspecting to be related to component of COPD he was ordered for BiPAP and continuous DuoNeb and additionally was ordered for Solu-Medrol. However, prior to placement of BiPAP the patient was noted to have improved respiratory status after his nausea was controlled and so BiPAP was deferred and he was stable on DuoNeb/nonrebreather transition to oxygen mask. EKG without overt acute ischemia. Chest x-ray consistent with multifocal pneumonia with bilateral mid to lower lung opacities. WBC 15.8K, nonspecific. H/H and platelets within normal limits. VBG is unremarkable. Chemistry without metabolic acidosis. Lactic acid 1.3, within normal limits. LFTs without significant abnormality. Troponin negative/undetectable. BNP within normal limits. Lipase is not elevated. Procalcitonin is undetectable. COVID-19 PCR was negative. Influenza PCR and RSV PCR also negative. Thus, given negative viral testing concern for bacterial pneumonia possible aspiration given the patient's nausea and vomiting and so he was treated empirically with Zosyn. Patient agrees with plan for admission. Case was discussed with Kuldeep Romo with Dr. Gillespie, [facility] hospitalist who will evaluate the patient for admission. Triage Nursing notes reviewed and agree them. prior medical records reviewed Vital Signs: reviewed and remarkable for hypoxia, tachypnea. Differential diagnosis: Reactive airway disease, pneumonia, pneumothorax, COPD, CHF, infections, cardiac ischemia, pulmonary embolism, musculoskeletal, gastrointestinal, as well as other pathologies. ER treatment provided: See below. Diagnostics interpreted by me: ECG: Sinus rhythm with first-degree AV block, 94 bpm, no ectopy, no overt ST elevation or depression, QTC 422, QRS 80. Cardiac Monitoring: An order for continuous cardiac monitoring was placed and demonstrated sinus rhythm, 94 bpm, no ectopy. Laboratory studies: see below Imaging studies: See below Consultation(s): Case was discussed with Kuldeep Romo with , [facility] hospitalist who will evaluate the patient for admission. HPI: The patient is a pleasant 85-year-old gentleman with a past medical history of COPD with chronic hypoxic respiratory failure, type 2 diabetes, hypertension who presents to the emergency department with acute worsening of shortness of breath with sense of being unable to breathe which she reports began today and developed nausea and vomiting. HPI is limited due to the patient's acute on chronic respiratory failure where he is barely able to get words out. ROS: See above HPI for pertinent positives & negatives. A total of 10 systems reviewed and were otherwise negative. PAST MEDICAL HISTORY: see Below PAST SURGICAL HISTORY: see Below FAMILY HISTORY:See Below SOCIAL HISTORY: see Below HOME MEDICATIONS: see Below ALLERGIES: see Below VITALS: see Below PHYSICAL EXAMINATION: GENERAL: Awake, alert, ill-appearing, severe respiratory distress. HENT: Normocephalic, atraumatic. Oropharynx with dry mucous membranes and othe rwise unremarkable. EYES: Normal conjunctiva. Sclera non-icteric. NECK: Supple. No nuchal rigidity. FROM. No JVD. RESPIRATORY: Diminished breath sounds throughout with prolonged expiratory phase. Increased work of breathing with accessory muscle use. CARDIAC: Regular rate, normal rhythm. Extremities warm and well perfused. Pulses equal. ABDOMEN: Soft, non-distended. No tenderness to palpation. No rebound or guarding. No masses. RECTAL: Deferred. MUSCULOSKELETAL: Chest examination reveals no tenderness. The back is symmetrical on inspection without obvious abnormality. There is no CVA tendernes s to palpation. No joint edema. LOWER EXTREMITIES: Calves are equal size bilaterally and non-tender. No edema. No discoloration. NEURO: Normal sensorium. No sensory or motor deficits noted. SKIN: No rash or jaundice noted. ED COURSE: Critical Care: I have personally spent greater than 75 minutes of critical care time in the direct management of this patient. This includes bedside care, interpretation of diagnostic studies, and testing, discussion with consultants, patient, and family members, and other required patient management activities. This 75 minutes is in excess of all separately billable procedures. 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 Jerri Hayden @ [facility] [place] Neurology Transient ischemic attack (TIA) 07/2018--no lasting deficits from that mini stroke Surgical History History of abdominal surgery removal of stomach cancer mass History of appendectomy History of bilateral cataract extraction History of esophagogastroduodenoscopy (EGD) History of gastric restrictive surgery History of nasal polypectomy History of prostate surgery History of tooth extraction most teeth removed Status post insertion of percutaneous endoscopic gastrostomy (PEG) tube Family History Brother Family history of diabetes mellitus Other No family history of adverse response to anesthesia No family history of bleeding disorder Social History Smoking Status: Never smoker Second Hand Exposure: No; Hx Alcohol Use: No Hx Substance Use: No Preferred Language: Grenadian Communication Ability: Effective Stock Cutter Required: No Beliefs That Will Affect Care: None marital status: Current Living Situation: Other Current Living Situation Comment: [place] current occupational status: retired Feels Safe at Home: Yes Assistive Devices: Oxygen - Continuous Allergies Allergies Allergy/AdvReac Type Severity Reaction Status Date / Time No Known Allergies Allergy Verified 04/26/21 17:09 Home Meds Home Medications Medication Instructions Recorded Confirmed insulin aspart U-100 100 unit/mL See Rx Instructions .ROUTE .COMPLEX 05/30/19 04/26/21 subcutaneous cartridge (Novolog PenFill U-100 Insulin aspart) cholecalciferol (vitamin D3) 25 1,000 unit PO QPM 08/04/19 04/26/21 mcg (1,000 unit) tablet (Vitamin D3) docusate sodium 100 mg capsule 100 mg PO QAM 09/11/19 04/26/21 (Colace) albuterol sulfate 2.5 mg INHALATION QID PRN 10/23/19 04/26/21 albuterol sulfate 90 mcg/actuation 1 puff INHALATION QID PRN 10/23/19 04/26/21 aerosol inhaler atorvastatin 20 mg tablet 10 mg PO QAM 11/14/19 04/26/21 insulin glargine 100 unit/mL (3 17 unit SC HS 12/04/19 04/26/21 mL) subcutaneous pen (Lantus Solostar U-100 Insulin) warfarin 2.5 mg tablet See Rx Instructions .ROUTE .COMPLEX 12/04/19 04/26/21 guaifenesin 600 mg tablet, 600 mg PO QAM tab 10/11/20 04/26/21 extended release 12 hr (Mucinex) sennosides 8.6 mg tablet 8.6 mg PO QAM tab 10/11/20 04/26/21 amlodipine 10 mg tablet 10 mg PO QAM 01/24/21 04/26/21 metoprolol tartrate 50 mg tablet 50 mg PO QAM 01/24/21 04/26/21 budesonide-formoterol HFA 160 2 puff INHALATION QAM 04/26/21 04/26/21 mcg-4.5 mcg/actuation aerosol inhaler (Symbicort) Results & Data (ED) Vital Signs Vital Signs - 24 hr 04/26/21 15:14 04/26/21 15:20 04/26/21 15:30 Temperature Temperature Source Pulse Rate 94 H 96 H 94 H Pulse Rate [Right Finger] Pulse Rate from SpO2 Sensor 94 H 96 H 94 H Pulse Rhythm [Right Finger] Pulse Strength [Right Finger] Respiratory Rate 19 20 23 Respiratory Effort / Characteristics Blood Pressure Blood Pressure [Right Arm] Blood Pressure Mean Blood Pressure Mean [Right Arm] Pulse Oximetry 81 L 88 L 91 Oxygen Delivery Method Room Air Oxygen Flow Rate Sepsis Recent Fever Within 48 Hours Sepsis New/Unexplained Change in Mental Status Sepsis Action Taken by Nursing 04/26/21 15:40 04/26/21 15:46 04/26/21 15:48 Temperature 37.2 C Temperature Source Oral Pulse Rate 95 H Pulse Rate [Right Finger] 91 H Pulse Rate from SpO2 Sensor 94 H Pulse Rhythm [Right Finger] Regular Pulse Strength [Right Finger] Normal Respiratory Rate 24 22 Respiratory Effort / Characteristics Blood Pressure Blood Pressure [Right Arm] 147/78 H Blood Pressure Mean Blood Pressure Mean [Right Arm] 101 Pulse Oximetry 91 80 L 92 Oxygen Delivery Method Room Air Oxymask Oxygen Flow Rate 10 Sepsis Recent Fever Within 48 Hours Sepsis New/Unexplained Change in Mental Status Sepsis Action Taken by Nursing 04/26/21 15:50 04/26/21 15:52 04/26/21 15:54 Temperature Temperature Source Pulse Rate 90 Pulse Rate [Right Finger] Pulse Rate from SpO2 Sensor Pulse Rhythm [Right Finger] Pulse Strength [Right Finger] Respiratory Rate 20 Respiratory Effort / Characteristics Short of Breath Blood Pressure Blood Pressure [Right Arm] Blood Pressure Mean Blood Pressure Mean [Right Arm] Pulse Oximetry Oxygen Delivery Method Oxygen Flow Rate Sepsis Recent Fever Within 48 Hours Yes Sepsis New/Unexplained Change in Mental Status No Sepsis Action Taken by Nursing No Action Required 04/26/21 16:00 04/26/21 16:04 04/26/21 16:10 Temperature Temperature Source Pulse Rate 87 85 Pulse Rate [Right Finger] 86 Pulse Rate from SpO2 Sensor 87 85 Pulse Rhythm [Right Finger] Pulse Strength [Right Finger] Respiratory Rate 18 16 16 Respiratory Effort / Characteristics Non-Labored Spontaneous Blood Pressure Blood Pressure [Right Arm] Blood Pressure Mean Blood Pressure Mean [Right Arm] Pulse Oximetry 97 97 96 Oxygen Delivery Method Non-rebreather Oxygen Flow Rate 12 Sepsis Recent Fever Within 48 Hours Sepsis New/Unexplained Change in Mental Status Sepsis Action Taken by Nursing 04/26/21 16:20 04/26/21 16:30 04/26/21 16:40 Temperature Temperature Source Pulse Rate 90 Pulse Rate [Right Finger] Pulse Rate from SpO2 Sensor 91 H 91 H 96 H Pulse Rhythm [Right Finger] Pulse Strength [Right Finger] Respiratory Rate 14 18 Respiratory Effort / Characteristics Blood Pressure Blood Pressure [Right Arm] Blood Pressure Mean Blood Pressure Mean [Right Arm] Pulse Oximetry 97 98 98 Oxygen Delivery Method Oxygen Flow Rate Sepsis Recent Fever Within 48 Hours Sepsis New/Unexplained Change in Mental Status Sepsis Action Taken by Nursing 04/26/21 16:50 04/26/21 17:00 04/26/21 17:10 Temperature Temperature Source Pulse Rate 99 H 99 H Pulse Rate [Right Finger] Pulse Rate from SpO2 Sensor 96 H 99 H 99 H Pulse Rhythm [Right Finger] Pulse Strength [Right Finger] Respiratory Rate 19 18 18 Respiratory Effort / Characteristics Blood Pressure 133/69 Blood Pressure [Right Arm] Blood Pressure Mean 90 Blood Pressure Mean [Right Arm] Pulse Oximetry 99 99 96 Oxygen Delivery Method Oxymask Oxygen Flow Rate 7 Sepsis Recent Fever Within 48 Hours Sepsis New/Unexplained Change in Mental Status Sepsis Action Taken by Nursing 04/26/21 17:20 04/26/21 17:21 04/26/21 17:30 Temperature Temperature Source Pulse Rate 96 H 97 H Pulse Rate [Right Finger] Pulse Rate from SpO2 Sensor 96 H 96 H Pulse Rhythm [Right Finger] Pulse Strength [Right Finger] Respiratory Rate 19 16 18 Respiratory Effort / Characteristics Non-Labored Blood Pressure Blood Pressure [Right Arm] Blood Pressure Mean Blood Pressure Mean [Right Arm] Pulse Oximetry 96 96 90 Oxygen Delivery Method Oxymask Oxygen Flow Rate 7 Sepsis Recent Fever Within 48 Hours Sepsis New/Unexplained Change in Mental Status Sepsis Action Taken by Nursing 04/26/21 17:40 04/26/21 17:50 Temperature Temperature Source Pulse Rate 91 H 101 H Pulse Rate [Right Finger] Pulse Rate from SpO2 Sensor 99 H 101 H Pulse Rhythm [Right Finger] Pulse Strength [Right Finger] Respiratory Rate 14 18 Respiratory Effort / Characteristics Blood Pressure Blood Pressure [Right Arm] Blood Pressure Mean Blood Pressure Mean [Right Arm] Pulse Oximetry 96 96 Oxygen Delivery Method Oxygen Flow Rate Sepsis Recent Fever Within 48 Hours Sepsis New/Unexplained Change in Mental Status Sepsis Action Taken by Nursing Laboratory Data Attestation: I reviewed the patient's lab results. Result diagrams: 04/26/21 15:30 04/26/21 15:30 Lab Results 04/26/21 04/26/21 04/26/21 Range/Units 15:30 15:30 15:30 WBC 15.83 H (4.8-10.8) K/uL RBC 5.32 (4.7-6.1) M/uL Hgb 15.2 (14.0-18.0) g/dL Hct 46.5 (42-52) % MCV 87.4 (80-100) fL MCH 28.6 (25-34) pg MCHC 32.7 (32-36) g/dL RDW Std Deviation 47.8 H (36.4-46.3) fL RDW Coeff of Mainor 14.8 H (11.5-14.5) % Plt Count 311 (130-400) K/uL MPV 10.2 (7.4-10.4) fL Immature Gran % (Auto) 0.2 % Neut % (Auto) 76.7 % Lymph % (Auto) 14.7 % Rice % (Auto) 7.4 % Eos % (Auto) 0.8 % Baso % (Auto) 0.2 % Neut # (Auto) 12.16 H (1.4-6.5) K/uL Lymph # (Auto) 2.32 (1.2-3.4) K/uL Rice # (Auto) 1.17 H (0.11-0.59) K/uL Eos # (Auto) 0.12 (0-0.5) K/uL Baso # (Auto) 0.03 (0-0.2) K/uL Immature Gran # (Auto) 0.03 H (0.00-0.02) K/uL PT (9.0-12.0) Seconds INR (0.9-1.1) APTT (21.0-31.0) Seconds PTT Ratio VBG pH (7.36-7.41) VBG pCO2 (38-50) mmHg VBG pO2 mmHg VBG HCO3 mmol/L VBG O2 Saturation % VBG Base Excess mEq/L Barometric Pressure mm/Hg Sodium 139 (136-145) mmol/L Potassium 4.4 (3.5-5.1) mmol/L Chloride 106 (98-107) mmol/L Carbon Dioxide 27 (21-32) mmol/L Anion Gap 6.0 (3-11) BUN 22 H (7-18) mg/dl Creatinine 1.14 (0.6-1.4) mg/dl Est Cr Clr Drug Dosing 48.9 ml/min Est GFR ( Amer) 67.6 ml/min Est GFR (Non-Af Amer) 58.3 ml/min BUN/Creatinine Ratio 19.0 (10-20) Glucose 193 H (70-99) mg/dl Lactate (0.4-2.0) mmol/L Calcium 9.5 (8.5-10.1) mg/dl Magnesium 2.1 (1.8-2.4) mg/dl Total Bilirubin 1.4 H (0.2-1) mg/dl AST 11 L (15-37) U/L ALT 20 (12-78) Alkaline Phosphatase 58 (45-117) U/L Troponin I < 0.015 (0-0.045) ng/ml NT-Pro-B Natriuret Pep 318 (0-1800) pg/ml Total Protein 7.5 (6.4-8.2) gm/dl Albumin 3.5 (3.4-5.0) gm/dl Globulin 4.0 (2.5-4.0) gm/dl Albumin/Globulin Ratio 0.9 (0.9-2) Lipase 89 (73-393) U/L Procalcitonin < 0.05 (0-0.5) ng/ml Specimen Hemolysis SARS-CoV-2 (PCR) (Negative) Influenza Type A (PCR) (Neg) Influenza Type B (PCR) (Neg) RSV (RT-PCR) (Neg) 04/26/21 04/26/21 04/26/21 Range/Units 15:30 16:15 16:15 WBC (4.8-10.8) K/uL RBC (4.7-6.1) M/uL Hgb (14.0-18.0) g/dL Hct (42-52) % MCV (80-100) fL MCH (25-34) pg MCHC (32-36) g/dL RDW Std Deviation (36.4-46.3) fL RDW Coeff of Mainor (11.5-14.5) % Plt Count (130-400) K/uL MPV (7.4-10.4) fL Immature Gran % (Auto) % Neut % (Auto) % Lymph % (Auto) % Rice % (Auto) % Eos % (Auto) % Baso % (Auto) % Neut # (Auto) (1.4-6.5) K/uL Lymph # (Auto) (1.2-3.4) K/uL Rice # (Auto) (0.11-0.59) K/uL Eos # (Auto) (0-0.5) K/uL Baso # (Auto) (0-0.2) K/uL Immature Gran # (Auto) (0.00-0.02) K/uL PT 18.2 H (9.0-12.0) Seconds INR 1.9 H (0.9-1.1) APTT 29.8 (21.0-31.0) Seconds PTT Ratio 1.1 VBG pH 7.36 (7.36-7.41) VBG pCO2 52 H (38-50) mmHg VBG pO2 38 mmHg VBG HCO3 29 mmol/L VBG O2 Saturation 66.7 % VBG Base Excess 2.2 mEq/L Barometric Pressure 735.6 mm/Hg Sodium (136-145) mmol/L Potassium (3.5-5.1) mmol/L Chloride (98-107) mmol/L Carbon Dioxide (21-32) mmol/L Anion Gap (3-11) BUN (7-18) mg/dl Creatinine (0.6-1.4) mg/dl Est Cr Clr Drug Dosing ml/min Est GFR ( Amer) ml/min Est GFR (Non-Af Amer) ml/min BUN/Creatinine Ratio (10-20) Glucose (70-99) mg/dl Lactate 1.3 (0.4-2.0) mmol/L Calcium (8.5-10.1) mg/dl Magnesium (1.8-2.4) mg/dl Total Bilirubin (0.2-1) mg/dl AST (15-37) U/L ALT (12-78) Alkaline Phosphatase (45-117) U/L Troponin I (0-0.045) ng/ml NT-Pro-B Natriuret Pep (0-1800) pg/ml Total Protein (6.4-8.2) gm/dl Albumin (3.4-5.0) gm/dl Globulin (2.5-4.0) gm/dl Albumin/Globulin Ratio (0.9-2) Lipase (73-393) U/L Procalcitonin (0-0.5) ng/ml Specimen Hemolysis SARS-CoV-2 (PCR) (Negative) Influenza Type A (PCR) (Neg) Influenza Type B (PCR) (Neg) RSV (RT-PCR) (Neg) 04/26/21 Range/Units 16:23 WBC (4.8-10.8) K/uL RBC (4.7-6.1) M/uL Hgb (14.0-18.0) g/dL Hct (42-52) % MCV (80-100) fL MCH (25-34) pg MCHC (32-36) g/dL RDW Std Deviation (36.4-46.3) fL RDW Coeff of Mainor (11.5-14.5) % Plt Count (130-400) K/uL MPV (7.4-10.4) fL Immature Gran % (Auto) % Neut % (Auto) % Lymph % (Auto) % Rice % (Auto) % Eos % (Auto) % Baso % (Auto) % Neut # (Auto) (1.4-6.5) K/uL Lymph # (Auto) (1.2-3.4) K/uL Rice # (Auto) (0.11-0.59) K/uL Eos # (Auto) (0-0.5) K/uL Baso # (Auto) (0-0.2) K/uL Immature Gran # (Auto) (0.00-0.02) K/uL PT (9.0-12.0) Seconds INR (0.9-1.1) APTT (21.0-31.0) Seconds PTT Ratio VBG pH (7.36-7.41) VBG pCO2 (38-50) mmHg VBG pO2 mmHg VBG HCO3 mmol/L VBG O2 Saturation % VBG Base Excess mEq/L Barometric Pressure mm/Hg Sodium (136-145) mmol/L Potassium (3.5-5.1) mmol/L Chloride (98-107) mmol/L Carbon Dioxide (21-32) mmol/L Anion Gap (3-11) BUN (7-18) mg/dl Creatinine (0.6-1.4) mg/dl Est Cr Clr Drug Dosing ml/min Est GFR ( Amer) ml/min Est GFR (Non-Af Amer) ml/min BUN/Creatinine Ratio (10-20) Glucose (70-99) mg/dl Lactate (0.4-2.0) mmol/L Calcium (8.5-10.1) mg/dl Magnesium (1.8-2.4) mg/dl Total Bilirubin (0.2-1) mg/dl AST (15-37) U/L ALT (12-78) Alkaline Phosphatase (45-117) U/L Troponin I (0-0.045) ng/ml NT-Pro-B Natriuret Pep (0-1800) pg/ml Total Protein (6.4-8.2) gm/dl Albumin (3.4-5.0) gm/dl Globulin (2.5-4.0) gm/dl Albumin/Globulin Ratio (0.9-2) Lipase (73-393) U/L Procalcitonin (0-0.5) ng/ml Specimen Hemolysis SARS-CoV-2 (PCR) NEGATIVE (Negative) Influenza Type A (PCR) Negative (Neg) Influenza Type B (PCR) Negative (Neg) RSV (RT-PCR) Negative (Neg) Administered Medications Discontinued Medications Albuterol (Albut/Ipratrop 3mg/0.5mg Neb 3 Ml Vial) 12 ml NEB ONE ONE Stop: 04/26/21 15:13 Last Admin: 04/26/21 16:04 Dose: 12 ml Documented by: [id number] Sodium Chloride (Nss 1000ml) 1,000 mls @ 999 mls/hr IV .Q1H1M ONE Stop: 04/26/21 16:12 Last Infusion: 04/26/21 16:39 Dose: 0 mls/hr Documented by: [id number] Admin: 04/26/21 15:38 Dose: 999 mls/hr Documented by: [id number] Acetaminophen (Ofirmev) 1,000 mg in 100 mls @ 400 mls/hr IV NOW STA Stop: 04/26/21 15:26 Last Infusion: 04/26/21 15:53 Dose: 0 mls/hr Documented by: [id number] Admin: 04/26/21 15:38 Dose: 400 mls/hr Documented by: [id number] Famotidine (Pepcid 20mg Iv Push) 20 mg in 5 mls @ 2.5 mls/min IV NOW STA Stop: 04/26/21 15:13 Last Admin: 04/26/21 15:38 Dose: 2.5 mls/min Documented by: [id number] Piperacillin Sod/Tazobactam Sod (Zosyn) 4.5 gm in 120 mls @ 240 mls/hr IV NOW ONE Stop: 04/26/21 18:01 Last Infusion: 04/26/21 18:49 Dose: 0 mls/hr Documented by: [id number] Admin: 04/26/21 18:19 Dose: 240 mls/hr Documented by: [id number] Methylprednisolone (Methylprednisolone 125 Mg/2 Ml Vial) 125 mg IV NOW STA Stop: 04/26/21 15:13 Last Admin: 04/26/21 15:38 Dose: 125 mg Documented by: [id number] Ondansetron HCl (Ondansetron Inj 2 Mg/Ml 2 Ml Vial) 4 mg IV NOW STA Stop: 04/26/21 15:13 Last Admin: 04/26/21 15:38 Dose: 4 mg Documented by: [id number] Imaging Data Radiologist's Impression: Chest X-Ray 04/26/21 15:13 XR chest 1V portable, XR KUB/Abdomen 1 view HISTORY: 85 years-old Male SEPSIS acute sepsis COMPARISON: KUB 10/02/2020, chest radiograph 04/12/2020, CT abdomen and pelvis 12/05/2019 TECHNIQUE: Portable AP view of the chest with KUB radiograph FINDINGS: CHEST: Cardiac silhouette is upper limits of normal in size. Interstitial coarsening with ill-defined bilateral mid to lower lung zone predominant airspace opacities. Asymmetric prominence of the left hilum. Degenerative changes of the shoulders and spine with left shoulder rotator cuff calcific tendinosis. KUB: Nonobstructive bowel gas pattern. Unchanged 3 mm mesenteric calcification of the right upper quadrant abdomen. No definite renal or ureteral calculi identified. The bowel gas pattern is nonobstructive. Surgical suture material the abdominal right lower quadrant redemonstrated. Degenerative changes of the spine, pelvis and hips. IMPRESSION: 1. Bilateral mid to lower lung zone airspace opacities are suggestive of multifocal pneumonia. Follow-up imaging to document resolution is recommended. 2. Asymmetric left hilar prominence is likely secondary to airspace disease and/or adenopathy. Attention at follow-up recommended to exclude an underlying lesion. 3. Nonobstructive bowel gas pattern. ACT 112: Negative or not required by law. The above report was generated using voice recognition software. It may contain grammatical, syntax or spelling errors. Electronically signed by: Taiwo Naqvi M.D. 04/26/2021 4:46 PM KUB X-Ray 04/26/21 15:22 XR chest 1V portable, XR KUB/Abdomen 1 view HISTORY: 85 years-old Male SEPSIS acute sepsis COMPARISON: KUB 10/02/2020, chest radiograph 04/12/2020, CT abdomen and pelvis 12/05/2019 TECHNIQUE: Portable AP view of the chest with KUB radiograph FINDINGS: CHEST: Cardiac silhouette is upper limits of normal in size. Interstitial coarsening with ill-defined bilateral mid to lower lung zone predominant airspace opacities. Asymmetric prominence of the left hilum. Degenerative changes of the shoulders and spine with left shoulder rotator cuff calcific tendinosis. KUB: Nonobstructive bowel gas pattern. Unchanged 3 mm mesenteric calcification of the right upper quadrant abdomen. No definite renal or ureteral calculi identified. The bowel gas pattern is nonobstructive. Surgical suture material the abdominal right lower quadrant redemonstrated. Degenerative changes of the spine, pelvis and hips. IMPRESSION: 1. Bilateral mid to lower lung zone airspace opacities are suggestive of multifocal pneumonia. Follow-up imaging to document resolution is recommended. 2. Asymmetric left hilar prominence is likely secondary to airspace disease and/or adenopathy. Attention at follow-up recommended to exclude an underlying lesion. 3. Nonobstructive bowel gas pattern. ACT 112: Negative or not required by law. The above report was generated using voice recognition software. It may contain grammatical, syntax or spelling errors. Electronically signed by: Taiwo Naqvi M.D. 04/26/2021 4:46 PM Discharge Plan Visit Data Chief Complaint: Shortness of Breath/Dyspnea ED Provider: Melchor Bonilla Discharge Problem: Pneumonia, COPD (chronic obstructive pulmonary disease), Acute and chronic respiratory failure with hypoxia Patient Disposition: Admitted As Inpatient Discharge Instructions Interventions: ED Discharge Assessment Last Done: 04/26/21 20:29
[2021-04-26 16:27] LABS: Alanine Aminotransferase 20 (12-78); Albumin Globulin Ratio 0.9 (0.9-2); Albumin Level 3.5 gm/dl (3.4-5.0); Alkaline Phosphatase 58 U/L (45-117); Aspartate Aminotransferase 11 U/L (15-37); Bilirubin,Total 1.4 mg/dl (0.2-1); Blood Urea Nitrogen 22 mg/dl (7-18); Calcium 9.5 mg/dl (8.5-10.1); Carbon Dioxide 27 mmol/L (21-32); Chloride 106 mmol/L (98-107); Creatinine Clr Calc Pharmacy 48.9 ml/min; Est GFR (African American) 67.6 ml/min; Est GFR (Non-African American) 58.3 ml/min; Glucose 193 mg/dl (70-99); Lipase 89 U/L (73-393); Magnesium 2.1 mg/dl (1.8-2.4); NT Pro B Type Natriuretic Pept 318 pg/ml (0-1800); Potassium 4.4 mmol/L (3.5-5.1); Sodium 139 mmol/L (136-145); Total Protein 7.5 gm/dl (6.4-8.2); Troponin I < 0.015 ng/ml (0-0.045)
[2021-04-26 16:41] LABS: Base Excess VBG 2.2 mEq/L; Oxygen Saturation VBG 66.7 %; pH VBG 7.36 (7.36-7.41)
--- NOTE | 2021-04-26 16:42 | Electrocardiogram Report ---
Test Reason : Blood Pressure : / mmHG Vent. Rate : 094 BPM Atrial Rate : 094 BPM P-R Int : 268 ms QRS Dur : 080 ms QT Int : 338 ms P-R-T Axes : 084 042 069 degrees QTc Int : 422 ms Poor data quality, interpretation may be adversely affected Sinus rhythm with 1st degree A-V block Possible Inferior infarct (cited on or before 12-APR-2020) Abnormal ECG When compared with ECG of 24-JAN-2021 02:19, No significant change was found Confirmed by Bong Lima ([id number]) on 04/26/2021 4:41:56 PM Referred By: Confirmed By:Bong Lima
--- NOTE | 2021-04-26 16:48 | XRay Report ---
XR chest 1V portable, XR KUB/Abdomen 1 view HISTORY: 85 years-old Male SEPSIS acute sepsis COMPARISON: KUB 10/02/2020, chest radiograph 04/12/2020, CT abdomen and pelvis 12/05/2019 TECHNIQUE: Portable AP view of the chest with KUB radiograph FINDINGS: CHEST: Cardiac silhouette is upper limits of normal in size. Interstitial coarsening with ill-defined bilate ral mid to lower lung zone predominant airspace opacities. Asymmetric prominence of the left hilum. D egenerative changes of the shoulders and spine with left shoulder rotator cuff calcific tendinosis. KUB: Nonobstructive bowel gas pattern. Unchanged 3 mm mesenteric calcification of the right upper quadrant abdomen. No definite renal or ureteral calculi identified. The bowel gas pattern is nonobstructive. Surgical suture material the abdominal right lower quadrant redemonstrated. Degenerative changes of t he spine, pelvis and hips. IMPRESSION: 1. Bilateral mid to lower lung zone airspace opacities are suggestive of multifocal pneumonia. Follow -up imaging to document resolution is recommended. 2. Asymmetric left hilar prominence is likely secondary to airspace disease and/or adenopathy. Attent ion at follow-up recommended to exclude an underlying lesion. 3. Nonobstructive bowel gas pattern. ACT 112: Negative or not required by law. The above report was generated using voice recognition software. It may contain grammatical, syntax o r spelling errors. Electronically signed by: Taiwo Naqvi M.D. 04/26/2021 4:46 PM
[2021-04-26 17:25] LABS: Influenza A virus by PCR Negative (Neg); Influenza B virus by PCR Negative (Neg); RSV by PCR Negative (Neg); SARS CoV2 RNA(COVID-19) InHosp NEGATIVE (Negative)
[2021-04-26] MEDS ORDERED: PIPERACILL/TAZOBAC CONSULT ACTIVE PRN (17:32)
[2021-04-26] MEDS ORDERED: PIPERACILLIN/TAZOBACTAM 4.5 GM/120 ML BAG IV ONE (17:32)
--- NOTE | 2021-04-26 19:22 | History & Physical Report ---
Date of Service April 26, 2021 Assessment & Plan (1) Acute hypoxemic respiratory failure: (2) Acute exacerbation of chronic obstructive pulmonary disease: (3) Pneumonia: Plan: -Admit to [facility] telemetry -Patient presenting from home with reports of sudden onset of shortness of breath, while in the ED developed nausea and vomiting that has since resolved. -Initially hypoxic on room air at 80%, at 1 point patient was requiring 12 L nonrebreather. Currently saturating well on 6 L OxiMax. -CXR showing multifocal pneumonia. COVID-19, influenza, RSV testing negative -WBC 15 K, no other signs of sepsis -S/p Zosyn in the ED, continue with IV ceftriaxone and IV azithromycin -S/p IV Solu-Medrol 125 mg in the ED, continue with prednisone 40 mg daily -Follow blood cultures -Pulmonary toilet with nebs, incentive spirometer, flutter valve (4) CVA (cerebral vascular accident): Plan: -History of, no acute issues -Continue statin and warfarin (5) Diabetes mellitus, type 2: Plan: -Unknown HgbA1c, will update with a.m. labs -Lantus and NovoLog per protocol while hospitalized (6) HTN (hypertension): Plan: -BP controlled, continue metoprolol and amlodipine (7) Paroxysmal atrial fibrillation: Plan: -Rate controlled on metoprolol -Anticoagulated on Coumadin, INR 1.9 (8) DVT prophylaxis: Plan: -On Coumadin History of Present Illness Chief Complaint: Shortness of breath Primary Care Provider: Taime Portillo PA-C 85-year-old male with PMH DM type II, paroxysmal atrial fibrillation anticoagulated on Coumadin, history of CVA, COPD, and other problems listed below who presents the ED for evaluation of shortness of breath. Patient reports that he suddenly developed shortness of breath today. He denies cough and sputum production. While in the ED, patient developed nausea and vomiting. No abdominal pain. Denies hematemesis and coffee-ground emesis. No bright red bleeding per rectum or dark tarry stools. Patient reports he otherwise has been feeling well recently. No fevers or chills. Denies lightheadedness, dizziness, diaphoresis, syncopal events. No urinary symptoms. In the ED, patient was hypoxic on room air at 80%. At one point patient was requiring nonrebreather 12 L, currently saturating well on a 7 L OxiMax the time my exam. Labs show WBC 15 K, INR 1.9. CXR shows signs of multifocal pneumonia. COVID-19, influenza, RSV testing negative. Patient was given IV Tylenol, nebulizer, IV famotidine, IV Solu-Medrol 125 mg, IV Zofran, IV Zosyn, IVF. Allergies Allergy/AdvReac Type Severity Reaction Status Date / Time No Known Allergies Allergy Verified 04/26/21 17:09 Home Medications Medication Instructions Recorded Confirmed Type insulin aspart U-100 100 unit/mL See Rx Instructions .ROUTE .COMPLEX 05/30/19 04/26/21 History subcutaneous cartridge (Novolog PenFill U-100 Insulin aspart) cholecalciferol (vitamin D3) 25 1,000 unit PO QPM 08/04/19 04/26/21 History mcg (1,000 unit) tablet (Vitamin D3) docusate sodium 100 mg capsule 100 mg PO QAM 09/11/19 04/26/21 History (Colace) albuterol sulfate 2.5 mg INHALATION QID PRN 10/23/19 04/26/21 History albuterol sulfate 90 mcg/actuation 1 puff INHALATION QID PRN 10/23/19 04/26/21 History aerosol inhaler atorvastatin 20 mg tablet 10 mg PO QAM 11/14/19 04/26/21 History insulin glargine 100 unit/mL (3 17 unit SC HS 12/04/19 04/26/21 History mL) subcutaneous pen (Lantus Solostar U-100 Insulin) warfarin 2.5 mg tablet See Rx Instructions .ROUTE .COMPLEX 12/04/19 04/26/21 History guaifenesin 600 mg tablet, 600 mg PO QAM tab 10/11/20 04/26/21 History extended release 12 hr (Mucinex) sennosides 8.6 mg tablet 8.6 mg PO QAM tab 10/11/20 04/26/21 History amlodipine 10 mg tablet 10 mg PO QAM 01/24/21 04/26/21 History metoprolol tartrate 50 mg tablet 50 mg PO QAM 01/24/21 04/26/21 History budesonide-formoterol HFA 160 2 puff INHALATION QAM 04/26/21 04/26/21 History mcg-4.5 mcg/actuation aerosol inhaler (Symbicort) Past Med/Surg History Medical History Asthma inhaler/nebulizer prn Atrial fibrillation on xarelto BPH (benign prostatic hyperplasia) Chronic pansinusitis Diabetes mellitus, type 2 Dysarthria 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 Jerri Hayden @ [facility] [place] [facility] Transient ischemic attack (TIA) 07/2018--no lasting deficits from that mini stroke Surgical History History of abdominal surgery removal of stomach cancer mass History of appendectomy History of bilateral cataract extraction History of esophagogastroduodenoscopy (EGD) History of gastric restrictive surgery History of nasal polypectomy History of prostate surgery History of tooth extraction most teeth removed Status post insertion of percutaneous endoscopic gastrostomy (PEG) tube Family History Brother Family history of diabetes mellitus Other No family history of adverse response to anesthesia No family history of bleeding disorder Social History Smoking Status: Never smoker Second Hand Exposure: No; Hx Alcohol Use: No Hx Substance Use: No Preferred Language: German Communication Ability: Effective Developer Architect Required: No Beliefs That Will Affect Care: None marital status: Current Living Situation: Other Current Living Situation Comment: [place] current occupational status: retired Feels Safe at Home: Yes Assistive Devices: Oxygen - Continuous Review of Systems Review of Systems: ROS per HPI, all other systems reviewed and negative Physical Exam Physical Exam: Please refer to Dr. Gillespie's addendum for physical exam. Results & Data Results & Data ([facility]) Vital Signs (Past 12 Hours) Vital Signs Temp Pulse Pulse Resp BP BP Pulse Ox 04/26/21 18:32 16 96 04/26/21 17:21 16 96 04/26/21 17:10 99 H 18 133/69 96 04/26/21 17:00 99 H 18 99 04/26/21 16:50 19 99 04/26/21 16:40 18 98 04/26/21 16:30 14 98 04/26/21 16:20 90 97 04/26/21 16:10 85 16 96 04/26/21 16:04 86 16 97 04/26/21 16:00 87 18 97 04/26/21 15:50 90 20 04/26/21 15:48 37.2 C 91 H 22 147/78 H 92 04/26/21 15:46 80 L 04/26/21 15:40 95 H 24 91 04/26/21 15:30 94 H 23 91 04/26/21 15:20 96 H 20 88 L 04/26/21 15:14 94 H 19 81 L Laboratory Results Short CBC 04/26/21 Range/Units 15:30 WBC 15.83 H (4.8-10.8) K/uL Hgb 15.2 (14.0-18.0) g/dL Hct 46.5 (42-52) % Plt Count 311 (130-400) K/uL BMP 04/26/21 15:30 Sodium 139 Potassium 4.4 Chloride 106 Carbon Dioxide 27 BUN 22 H Creatinine 1.14 Glucose 193 H Calcium 9.5 Cardiac Enzymes 04/26/21 Range/Units 15:30 Troponin I < 0.015 (0-0.045) ng/ml Liver Function 04/26/21 Range/Units 15:30 Total Bilirubin 1.4 H (0.2-1) mg/dl AST 11 L (15-37) U/L ALT 20 (12-78) Alkaline Phosphatase 58 (45-117) U/L Albumin 3.5 (3.4-5.0) gm/dl Diagnostic Findings Chest X-Ray 04/26/21 15:13 XR chest 1V portable, XR KUB/Abdomen 1 view HISTORY: 85 years-old Male SEPSIS acute sepsis COMPARISON: KUB 10/02/2020, chest radiograph 04/12/2020, CT abdomen and pelvis 12/05/2019 TECHNIQUE: Portable AP view of the chest with KUB radiograph FINDINGS: CHEST: Cardiac silhouette is upper limits of normal in size. Interstitial coarsening with ill-defined bilateral mid to lower lung zone predominant airspace opacities. Asymmetric prominence of the left hilum. Degenerative changes of the shoulders and spine with left shoulder rotator cuff calcific tendinosis. KUB: Nonobstructive bowel gas pattern. Unchanged 3 mm mesenteric calcification of the right upper quadrant abdomen. No definite renal or ureteral calculi identified. The bowel gas pattern is nonobstructive. Surgical suture material the abdominal right lower quadrant redemonstrated. Degenerative changes of the spine, pelvis and hips. IMPRESSION: 1. Bilateral mid to lower lung zone airspace opacities are suggestive of multifocal pneumonia. Follow-up imaging to document resolution is recommended. 2. Asymmetric left hilar prominence is likely secondary to airspace disease and/or adenopathy. Attention at follow-up recommended to exclude an underlying lesion. 3. Nonobstructive bowel gas pattern. ACT 112: Negative or not required by law. The above report was generated using voice recognition software. It may contain grammatical, syntax or spelling errors. Electronically signed by: Taiwo Naqvi M.D. 04/26/2021 4:46 PM KUB X-Ray 04/26/21 15:22 XR chest 1V portable, XR KUB/Abdomen 1 view HISTORY: 85 years-old Male SEPSIS acute sepsis COMPARISON: KUB 10/02/2020, chest radiograph 04/12/2020, CT abdomen and pelvis 12/05/2019 TECHNIQUE: Portable AP view of the chest with KUB radiograph FINDINGS: CHEST: Cardiac silhouette is upper limits of normal in size. Interstitial coarsening with ill-defined bilateral mid to lower lung zone predominant airspace opacities. Asymmetric prominence of the left hilum. Degenerative changes of the shoulders and spine with left shoulder rotator cuff calcific tendinosis. KUB: Nonobstructive bowel gas pattern. Unchanged 3 mm mesenteric calcification of the right upper quadrant abdomen. No definite renal or ureteral calculi identified. The bowel gas pattern is nonobstructive. Surgical suture material the abdominal right lower quadrant redemonstrated. Degenerative changes of the spine, pelvis and hips. IMPRESSION: 1. Bilateral mid to lower lung zone airspace opacities are suggestive of multifocal pneumonia. Follow-up imaging to document resolution is recommended. 2. Asymmetric left hilar prominence is likely secondary to airspace disease and/or adenopathy. Attention at follow-up recommended to exclude an underlying lesion. 3. Nonobstructive bowel gas pattern. ACT 112: Negative or not required by law. The above report was generated using voice recognition software. It may contain grammatical, syntax or spelling errors. Electronically signed by: Taiwo Naqvi M.D. 04/26/2021 4:46 PM Code Status & VTE Plan Code Status Patient is a full code as per Dr. Gillespie's discussion with him. VTE Prophylaxis Plan VTE Prophylaxis will be ordered: No Supervising Physician Co-Signing Physician Notes Pt is a 85 y/o M with hx of Afib on Coumadin, IDDM, COPD/Asthma, CVA with R sided weakness, BPH admitted for SOB with hypoxia. Exam: NC in place Lungs: decreased BS b/l, no wheezing Cardiac: normal S1/S2, no murmur Abd: ND, NT, soft LE: trace pitting edema b/l MSK: mildly contracted R hand and R foot Psych: AAOx3, normal affect A/P: Respiratory failure with hypoxia: -2/2 Pneumonia + COPD exacerbation -pt is not on home oxygen -will do ceftriaxone and azithro -Prednisone PO daily with Duoneb q4hrs -PT/OT Agree with LUPILLO Lima A/P (1) Pneumonia Laterality: right Lung location: lower lobe of lung Pneumonia type: due to unspecified organism Qualified Code(s): J18.9 - Pneumonia, unspecified organism
[2021-04-26] MEDS ORDERED: INSULIN GLARGINE SOLOSTAR 100 UNITS/ML 3 ML PEN SC SCH (21:39)
[2021-04-26] MEDS ORDERED: GLUCOSE 40% GEL 15 GM TUBE PO PRN (21:39)
[2021-04-26] MEDS ORDERED: GLUCOSE 10 TABS/TUBE PO PRN (21:39)
[2021-04-26] MEDS ORDERED: cefTRIAXone SODIUM 1,000 MG in DEXTROSE 5% 50 ML IV SCH (21:39)
[2021-04-26] MEDS ORDERED: DEXTROSE 50% 50 ML SYRINGE IV PRN (21:39)
[2021-04-26] MEDS ORDERED: GLUCAGON FOR INJ 1 MG VIAL SQ PRN (21:39)
[2021-04-26] MEDS ORDERED: INSULIN ASPART 100 UNITS/ML VIAL SC SCH (21:39)
[2021-04-26] MEDS ORDERED: ONDANSETRON INJ 2 MG/ML 2 ML VIAL IV PRN (21:39)
[2021-04-26] MEDS ORDERED: ALBUT/IPRATROP 3MG/0.5MG NEB 3 ML VIAL ONE (23:31)
[2021-04-26] MEDS: ALBUT/IPRATROP 3MG/0.5MG NEB 3 ML VIAL NEB SCH (23:37)
[2021-04-26] MEDS ORDERED: WARFARIN SOD 5 MG TAB PO SCH (23:45)
[2021-04-26] MEDS: cefTRIAXone SODIUM 2,000 MG in DEXTROSE 5% 50 ML IV SCH (23:50)
[2021-04-26] MEDS: AZITHROMYCIN 500 MG in DEXTROSE 5% 250 ML IV SCH (23:53)
[2021-04-27] MEDS ORDERED: Flu Vaccine-High Dose (Fluzone-HD) PF 65+ 0.7mL SYR IM ONE (02:45)
[2021-04-27 05:38] LABS: Hemoglobin 12.4 g/dL (14.0-18.0); Mean Corpuscular Hemoglobin 28.8 pg (25-34); Mean Corpuscular Hgb Conc 33.5 g/dL (32-36); Mean Platelet Volume 9.7 fL (7.4-10.4); Platelet Count 240 K/uL (130-400); RDW Coefficient of Variation 14.9 % (11.5-14.5)
[2021-04-27 06:02] LABS: INR 2.5 (0.9-1.1); Prothrombin Time 23.9 Seconds (9.0-12.0)
[2021-04-27 06:23] LABS: BUN Creatinine Ratio 19.8 (10-20); Calcium 8.5 mg/dl (8.5-10.1); Creatinine Clr Calc Pharmacy 37.9 ml/min; Est GFR (African American) 49.7 ml/min; Est GFR (Non-African American) 42.9 ml/min
[2021-04-27] MEDS ORDERED: INSULIN GLARGINE SOLOSTAR 100 UNITS/ML 3 ML PEN SC STA (06:31)
[2021-04-27] MEDS: INSULIN ASPART 100 UNITS/ML VIAL SC SCH ×4 (06:42→20:23)
[2021-04-27 06:52] LABS: Beta-Hydroxybutyrate 4.51 mg/dl (0.2-2.81)
[2021-04-27] MEDS: ALBUT/IPRATROP 3MG/0.5MG NEB 3 ML VIAL NEB SCH (07:44)
[2021-04-27] MEDS ORDERED: ALBUT/IPRATROP 3MG/0.5MG NEB 3 ML VIAL NEB PRN (08:29)
[2021-04-27] MEDS ORDERED: NovoLIN-R INSULIN PER UNIT CHARGE ONE (08:43)
[2021-04-27] MEDS: SENNA 8.6 MG TAB PO SCH (08:49)
[2021-04-27] MEDS: predniSONE 20 MG TAB PO SCH (08:50)
[2021-04-27] MEDS: METOPROLOL TARTRATE 50 MG TAB PO SCH (08:50)
[2021-04-27] MEDS: guaiFENesin 600 MG TABCR PO SCH (08:51)
[2021-04-27] MEDS: DOCUSATE SODIUM 100 MG CAP PO SCH (08:51)
[2021-04-27] MEDS: amLODIPine BESYLATE 5 MG TAB PO SCH (08:52)
[2021-04-27] MEDS ORDERED: INSULIN HUMAN REGULAR PER UNIT 10 UNITS in SYRINGE 9.9 ML IV STA (08:53)
[2021-04-27] MEDS: ATORVASTATIN 10 MG TAB PO SCH (08:53)
[2021-04-27] MEDS ORDERED: INSULIN ASPART 100 UNITS/ML VIAL SC SCH (09:30)
[2021-04-27 10:47] LABS: Estimated Average Glucose 169 mg/dl; Hemoglobin A1C 7.5 % (4.5-5.6)
--- NOTE | 2021-04-27 12:46 | Hospitalist Progress Note ---
Date of Service April 27, 2021 Assessment & Plan (1) Acute hypoxemic respiratory failure: Plan: resolved, hypoxia resolved with treatment overnight. (2) Acute exacerbation of chronic obstructive pulmonary disease: Plan: cont oral prednisone and antbiotic treatment. Cont home inhalers. Nebulixzed bronchodilators PRN (3) Pneumonia: Plan: -Admit to [facility] telemetry -Patient presenting from home with reports of sudden onset of shortness of breath, while in the ED developed nausea and vomiting that has since resolved. -Initially hypoxic on room air at 80%, at 1 point patient was requiring 12 L nonrebreather. Currently saturating well on 6 L OxiMax. -CXR showing multifocal pneumonia. COVID-19, influenza, RSV testing negative -WBC 19 K, no other signs of sepsis -S/p Zosyn in the ED, continue with IV ceftriaxone and IV azithromycin -S/p IV Solu-Medrol 125 mg in the ED, continue with prednisone 40 mg daily -Follow blood cultures -Pulmonary toilet with nebs, incentive spirometer, flutter valve -improved (4) CVA (cerebral vascular accident): Plan: -History of stroke -Continue statin and warfarin per home regimen. -has trouble swallowing, pending speech evaluation (5) Diabetes mellitus, type 2: Plan: -Unknown HgbA1c, will update with a.m. labs -Lantus and NovoLog per protocol while hospitalized -inpatient glucose was elevated from steroids and this is now under control with insulin this am. (6) HTN (hypertension): Plan: -BP controlled, continue metoprolol and amlodipine (7) Paroxysmal atrial fibrillation: Plan: -Rate controlled on metoprolol, currently in sinus rhythm -Anticoagulated on Coumadin, INR 2.5 (8) DVT prophylaxis: Plan: -On Coumadin Admission and Anticipated Discharge Date Admission Date: April 26, 2021 Subjective 85 yo M presented with acute SOB and chills. His symptom onset began that same day, he denies any recent illness. Chills were severe and he reports coughing which was nonproductive. No chest pain and denies any chest pain, nausea or vomiting now. Tolerating lunch and feeling well Repeat BSG is 71 afte rinsulin this morning and we are skipping his lunch coverage per his request coughing has improved eager to get home ambulating independently. Review of Systems Review of Systems: All systems were reviewed and negative except as indicated in subjective above. Physical Exam Physical Exam: CONSTITUTIONAL: WNWD, vitals as above, generally well- appearing, NAD EYES: normal conjunctivae, no scleral icterus ENT: external ear and nose normal, MMM NECK: trachea midline RESPIRATORY: clear to auscultation bilaterally, no crackles, rales or wheezes, normal respiratory effort CARDIOVASCULAR: regular rate and rhythm, S1 and 2 heard without murmurs, gallops or rubs, no JVD, no peripheral edema CHEST: inspection of chest was normal GASTROINTESTINAL: soft, nontender, ND, no guarding MUSCULOSKELETAL: strength 5/5 throughout, head is normocephalic and atraumatic SKIN: warm and dry NEUROLOGIC: CN 2-12 grossly intact, no sensory deficit, normal cognition, normal speech, no tremor, no gross focal deficits. PSYCHIATRIC: alert cooperative and oriented to person, place and time. Results & Data Results & Data ([facility]) Vital Signs (Past 12 Hours) Vital Signs Temp Pulse Resp BP Pulse Ox 04/27/21 08:30 36.8 C 95 H 18 131/64 95 04/27/21 07:45 83 16 96 04/27/21 04:00 36.8 C 87 21 104/51 L 95 04/27/21 01:30 36.9 C 87 16 123/61 96 Laboratory Results Short CBC 04/26/21 04/27/21 Range/Units 15:30 05:18 WBC 15.83 H 19.70 H (4.8-10.8) K/uL Hgb 15.2 12.4 L (14.0-18.0) g/dL Hct 46.5 37.0 L (42-52) % Plt Count 311 240 (130-400) K/uL BMP 04/26/21 04/27/21 15:30 05:18 Sodium 139 136 Potassium 4.4 4.0 Chloride 106 103 Carbon Dioxide 27 26 BUN 22 H 29 H Creatinine 1.14 1.47 H D Glucose 193 H 471 H* Calcium 9.5 8.5 Cardiac Enzymes 04/26/21 Range/Units 15:30 Troponin I < 0.015 (0-0.045) ng/ml Liver Function 04/26/21 Range/Units 15:30 Total Bilirubin 1.4 H (0.2-1) mg/dl AST 11 L (15-37) U/L ALT 20 (12-78) Alkaline Phosphatase 58 (45-117) U/L Albumin 3.5 (3.4-5.0) gm/dl Medications Administered Current Inpatient Medications Albuterol (Albut/Ipratrop 3mg/0.5mg Neb 3 Ml Vial) 3 ml NEB Q4R PRN PRN Reason: Shortness Of Breath Or Wheezing Stop: 05/27/21 10:59 Amlodipine Besylate (Amlodipine Besylate 5 Mg Tab) 10 mg PO QAM [facility] Stop: 05/27/21 08:59 Last Admin: 04/27/21 08:52 Dose: 10 mg Documented by: Atorvastatin Calcium (Atorvastatin 10 Mg Tab) 10 mg PO QAM [facility] Stop: 05/27/21 08:59 Last Admin: 04/27/21 08:53 Dose: 10 mg Documented by: Dextrose (Dextrose 50% 50 Ml Syringe) 25 - 50 ml IV UD PRN; Protocol PRN Reason: Hypoglycemia Protocol Stop: 05/26/21 21:38 Docusate Sodium (Docusate Sodium 100 Mg Cap) [facility] [place] Stop: 05/27/21 08:59 Last Admin: 04/27/21 08:51 Dose: 100 mg Documented by: Fluticasone/Vilanterol (Fluticasone/Vilanterol 100/25mcg 14 Puffs/Inhaler) 1 puffs INH DAILY [facility] Stop: 05/27/21 08:59 Glucagon (Glucagon For Inj 1 Mg Vial) 1 mg SQ UD PRN; Protocol PRN Reason: Hypoglycemia Protocol Stop: 05/26/21 21:38 Glucose (Glucose 10 Tabs/Tube) 4 - 8 tabs PO UD PRN; Protocol PRN Reason: Hypoglycemia Protocol Stop: 05/26/21 21:38 Glucose (Glucose 40% Gel 15 Gm Tube) 15 - 30 gm PO UD PRN; Protocol PRN Reason: Hypoglycemia Protocol Stop: 05/26/21 21:38 Guaifenesin (Guaifenesin 600 Mg Tabcr) 600 mg PO QAM [facility] Stop: 05/27/21 08:59 Last Admin: 04/27/21 08:51 Dose: 600 mg Documented by: Azithromycin 500 mg/ Dextrose 255 mls @ 125 mls/hr IV Q24H [facility] Stop: 05/03/21 22:59 Last Infusion: 04/27/21 01:56 Dose: Infused Documented by: Ceftriaxone Sodium 2,000 mg/ (Dextrose) 70 mls @ 140 mls/hr IV Q24H [facility] Stop: 05/03/21 22:59 Last Infusion: 04/27/21 00:20 Dose: Infused Documented by: Insulin Aspart (Insulin Aspart 100 Units/Ml Vial) 0 units SC ACHS [facility] Stop: 05/27/21 06:34 Last Admin: 04/27/21 06:42 Dose: 17 units Documented by: Insulin Glargine (Insulin Glargine Solostar 100 Units/Ml 3 Ml Pen) 20 units SC BID [facility] Stop: 05/27/21 20:59 Metoprolol Tartrate (Metoprolol Tartrate 50 Mg Tab) 50 mg PO [facility] Stop: 05/27/21 08:59 Last Admin: 04/27/21 08:50 Dose: 50 mg Documented by: Miscellaneous (Carbohydrates For Hypoglycemia ) 15 - 30 gm PO UD PRN PRN Reason: Hypoglycemia Protocol Stop: 05/26/21 21:38 Ondansetron HCl (Ondansetron Inj 2 Mg/Ml 2 Ml Vial) 4 mg IV Q6H PRN PRN Reason: Nausea Stop: 05/26/21 21:38 Prednisone (Prednisone 20 Mg Tab) 40 mg PO DAILY [facility] Stop: 05/27/21 08:59 Last Admin: 04/27/21 08:50 Dose: 40 mg Documented by: Sennosides (Senna 8.6 Mg Tab) 8.6 mg [facility] [place] Stop: 05/27/21 08:59 Last Admin: 04/27/21 08:49 Dose: 8.6 mg Documented by: Warfarin Sodium (Warfarin Sod 5 Mg Tab) 5 mg PO [email or web address]@1600 [facility] Stop: 05/26/21 23:44 Last Admin: 04/27/21 02:31 Dose: 5 mg Documented by: Warfarin Sodium (Warfarin Sod 7.5 Mg Tab) 7.5 mg PO [email or web address]@1600 [facility] Stop: 05/27/21 15:59 (1) Pneumonia Laterality: bilateral Lung location: unspecified part of lung Pneumonia type: due to unspecified organism Qualified Code(s): J18.9 - Pneumonia, unspecified organism
[2021-04-27] MEDS ORDERED: WARFARIN SOD 7.5 MG TAB PO SCH (16:00)
[2021-04-27] MEDS: CARBOHYDRATES FOR HYPOGLYCEMIA PO PRN ×2 (16:28→16:48)
--- NOTE | 2021-04-27 16:29 | Hospitalist Progress Note ---
Date of Service April 27, 2021 Assessment & Plan (1) Acute hypoxemic respiratory failure: Plan: resolved, hypoxia resolved with treatment overnight. (2) Acute exacerbation of chronic obstructive pulmonary disease: Plan: No wheezing now. Cont oral prednisone and antibiotic treatment. Cont home inhalers. Nebulized bronchodilators PRN. (3) Pneumonia: Plan: h/o aspiration post stroke in the past. Has had conversations with OPTICAL FABRICATOR about this and permissive aspiration has been ongoing for two years. OPTICAL FABRICATOR to re- evaluate today. -CXR showing multifocal pneumonia. COVID-19, influenza, RSV testing negative Leukocytosis of 15K on admission with eelevated HR, possible deceloping sepsis on admission, however, I did not see the patient and would defer that diagnosis to the admitting provider. -S/p Zosyn in the ED, continue with IV ceftriaxone and IV azithromycin -S/p IV Solu-Medrol 125 mg in the ED, continue with prednisone 40 mg daily -Follow blood cultures -Pulmonary toilet with nebs, incentive spirometer, flutter valve -improved (4) CVA (cerebral vascular accident): Plan: -History of stroke, PAF -Continue statin and warfarin per home regimen. (5) Diabetes mellitus, type 2: Plan: a1c 7.5, will update with a.m. labs -Lantus and NovoLog per protocol while hospitalized -inpatient glucose was elevated from steroids and this is now under control with insulin this am. (6) HTN (hypertension): Plan: -BP controlled, continue metoprolol and amlodipine (7) Paroxysmal atrial fibrillation: Plan: -Rate controlled on metoprolol, currently in sinus rhythm -Anticoagulated on Coumadin, INR therapeutic. (8) DVT prophylaxis: Plan: coumadin Full Dispo-to home in 1-2 days. Michelle Laguerre DO [facility] Hospitalist Admission and Anticipated Discharge Date Admission Date: April 26, 2021 Subjective 85 yo M presented with acute SOB and chills. His symptom onset began that same day, he denies any recent illness. Chills were severe and he reports coughing which was nonproductive. No chest pain and denies any chest pain, nausea or vomiting now. Tolerating lunch and feeling well Repeat BSG is 71 afte rinsulin this morning and we are skipping his lunch coverage per his request coughing has improved eager to get home ambulating independently. Review of Systems Review of Systems: All systems were reviewed and negative except as indicated above. Physical Exam Physical Exam: CONSTITUTIONAL: WNWD, vitals as above, generally well- appearing, NAD EYES: normal conjunctivae, no scleral icterus ENT: external ear and nose normal, MMM NECK: trachea midline RESPIRATORY: clear to auscultation bilaterally, no crackles, rales or wheezes, normal respiratory effort CARDIOVASCULAR: regular rate and rhythm, S1 and 2 heard without murmurs, gallops or rubs, no JVD, no peripheral edema CHEST: inspection of chest was normal GASTROINTESTINAL: soft, nontender, ND, no guarding MUSCULOSKELETAL: strength 5/5 throughout, head is normocephalic and atraumatic SKIN: warm and dry NEUROLOGIC: CN 2-12 grossly intact, no sensory deficit, normal cognition, normal speech, no tremor, no gross focal deficits. PSYCHIATRIC: alert cooperative and oriented to person, place and time. Results & Data Results & Data ([facility]) Vital Signs (Past 12 Hours) Vital Signs Temp Pulse Pulse Resp BP Pulse Ox 04/27/21 15:05 76 04/27/21 14:22 71 16 128/65 95 04/27/21 12:32 97 04/27/21 12:00 36.6 C 74 18 128/70 96 04/27/21 08:30 36.8 C 95 H 18 131/64 95 04/27/21 07:45 83 16 96 Laboratory Results Short CBC 04/27/21 Range/Units 05:18 WBC 19.70 H (4.8-10.8) K/uL Hgb 12.4 L (14.0-18.0) g/dL Hct 37.0 L (42-52) % Plt Count 240 (130-400) K/uL BMP 04/26/21 04/27/21 15:30 05:18 Sodium 139 136 Potassium 4.4 4.0 Chloride 106 103 Carbon Dioxide 27 26 BUN 22 H 29 H Creatinine 1.14 1.47 H D Glucose 193 H 471 H* Calcium 9.5 8.5 Cardiac Enzymes 04/26/21 Range/Units 15:30 Troponin I < 0.015 (0-0.045) ng/ml Liver Function 04/26/21 Range/Units 15:30 Total Bilirubin 1.4 H (0.2-1) mg/dl AST 11 L (15-37) U/L ALT 20 (12-78) Alkaline Phosphatase 58 (45-117) U/L Albumin 3.5 (3.4-5.0) gm/dl Medications Administered Current Inpatient Medications Albuterol (Albut/Ipratrop 3mg/0.5mg Neb 3 Ml Vial) 3 ml NEB Q4R PRN PRN Reason: Shortness Of Breath Or Wheezing Stop: 05/27/21 10:59 Amlodipine Besylate (Amlodipine Besylate 5 Mg Tab) [facility] Stop: 05/27/21 08:59 Last Admin: 04/27/21 08:52 Dose: 10 mg Documented by: Atorvastatin Calcium (Atorvastatin 10 Mg Tab) 10 mg [facility] Stop: 05/27/21 08:59 Last Admin: 04/27/21 08:53 Dose: 10 mg Documented by: Dextrose (Dextrose 50% 50 Ml Syringe) 25 - 50 ml IV UD PRN; Protocol PRN Reason: Hypoglycemia Protocol Stop: 05/26/21 21:38 Docusate Sodium (Docusate Sodium 100 Mg Cap) 100 mg PO [facility] Stop: 05/27/21 08:59 Last Admin: 04/27/21 08:51 Dose: 100 mg Documented by: Fluticasone/Vilanterol (Fluticasone/Vilanterol 100/25mcg 14 Puffs/Inhaler) 1 puffs INH DAILY [facility] Stop: 05/27/21 08:59 Glucagon (Glucagon For Inj 1 Mg Vial) 1 mg SQ UD PRN; Protocol PRN Reason: Hypoglycemia Protocol Stop: 05/26/21 21:38 Glucose (Glucose 10 Tabs/Tube) 4 - 8 tabs PO UD PRN; Protocol PRN Reason: Hypoglycemia Protocol Stop: 05/26/21 21:38 Glucose (Glucose 40% Gel 15 Gm Tube) 15 - 30 gm PO UD PRN; Protocol PRN Reason: Hypoglycemia Protocol Stop: 05/26/21 21:38 Guaifenesin (Guaifenesin 600 Mg Tabcr) 600 mg [facility] Stop: 05/27/21 08:59 Last Admin: 04/27/21 08:51 Dose: 600 mg Documented by: Azithromycin 500 mg/ Dextrose 255 mls @ 125 mls/hr IV Q24H [facility] Stop: 05/03/21 22:59 Last Infusion: 04/27/21 01:56 Dose: Infused Documented by: Ceftriaxone Sodium 2,000 mg/ (Dextrose) 70 mls @ 140 mls/hr IV Q24H [facility] Stop: 05/03/21 22:59 Last Infusion: 04/27/21 00:20 Dose: Infused Documented by: Insulin Aspart (Insulin Aspart 100 Units/Ml Vial) 0 units SC ACHS [facility] Stop: 05/27/21 06:34 Last Admin: 04/27/21 11:30 Dose: Not Given Documented by: Insulin Glargine (Insulin Glargine Solostar 100 Units/Ml 3 Ml Pen) 20 units SC BID [facility] Stop: 05/27/21 20:59 Metoprolol Tartrate (Metoprolol Tartrate 50 Mg Tab) 50 mg PO [facility] Stop: 05/27/21 08:59 Last Admin: 04/27/21 08:50 Dose: 50 mg Documented by: Miscellaneous (Carbohydrates For Hypoglycemia ) 15 - 30 gm PO UD PRN PRN Reason: Hypoglycemia Protocol Stop: 05/26/21 21:38 Ondansetron HCl (Ondansetron Inj 2 Mg/Ml 2 Ml Vial) 4 mg IV Q6H PRN PRN Reason: Nausea Stop: 05/26/21 21:38 Prednisone (Prednisone 20 Mg Tab) 40 mg PO DAILY [facility] Stop: 05/27/21 08:59 Last Admin: 04/27/21 08:50 Dose: 40 mg Documented by: Sennosides (Senna 8.6 Mg Tab) 8.6 mg [facility] Stop: 05/27/21 08:59 Last Admin: 04/27/21 08:49 Dose: 8.6 mg Documented by: Warfarin Sodium (Warfarin Sod 5 Mg Tab) 5 mg PO [email or web address]@1600 [facility] Stop: 05/26/21 23:44 Last Admin: 04/27/21 02:31 Dose: 5 mg Documented by: Warfarin Sodium (Warfarin Sod 7.5 Mg Tab) 7.5 mg PO [id number]@1600 [facility] Stop: 05/27/21 15:59 Last Admin: 04/27/21 16:13 Dose: 7.5 mg Documented by: (1) Pneumonia Laterality: bilateral Lung location: unspecified part of lung Pneumonia type: due to unspecified organism Qualified Code(s): J18.9 - Pneumonia, unspecified organism
[2021-04-27 17:39] LABS: Appearance Urine Clear (Clear); Bacteria Urine Automated Negative (Negative); Bilirubin Urine Negative (Negative); Blood Urine Negative (Negative); Color Urine Yellow; Glucose Urine UA 2+ (Negative); Ketones Urine Trace (Negative); Leukocyte Esterase Urine Negative (Negative); Nitrite Urine Negative (Negative); Protein Urine Trace (Negative); RBC Urine Automated 0-4 /hpf (0-4); Specific Gravity Urine 1.019 (1.000-1.030); Urobilinogen Urine Negative (Negative)
[2021-04-27] MEDS: FLUTICASONE/VILANTEROL 100/25MCG 14 PUFFS/INHALER INH SCH (18:23)
[2021-04-27] MEDS: INSULIN GLARGINE SOLOSTAR 100 UNITS/ML 3 ML PEN SC SCH (20:22)
[2021-04-27] MEDS: cefTRIAXone SODIUM 2,000 MG in DEXTROSE 5% 50 ML IV SCH ×2 (22:46→23:16)
[2021-04-28] MEDS: AZITHROMYCIN 500 MG in DEXTROSE 5% 250 ML IV SCH (00:01)
[2021-04-28] MEDS: amLODIPine BESYLATE 5 MG TAB PO SCH (07:28)
[2021-04-28] MEDS: DOCUSATE SODIUM 100 MG CAP PO SCH (07:28)
[2021-04-28] MEDS: guaiFENesin 600 MG TABCR PO SCH (07:28)
[2021-04-28] MEDS: METOPROLOL TARTRATE 50 MG TAB PO SCH (07:29)
[2021-04-28] MEDS: SENNA 8.6 MG TAB PO SCH (07:29)
[2021-04-28] MEDS: ATORVASTATIN 10 MG TAB PO SCH (07:29)
[2021-04-28] MEDS: FLUTICASONE/VILANTEROL 100/25MCG 14 PUFFS/INHALER INH SCH (07:30)
[2021-04-28] MEDS: predniSONE 20 MG TAB PO SCH (07:30)
[2021-04-28 08:05] LABS: INR 4.1 (0.9-1.1); Prothrombin Time 37.3 Seconds (9.0-12.0)
[2021-04-28] MEDS: INSULIN ASPART 100 UNITS/ML VIAL SC SCH ×4 (08:10→20:10)
[2021-04-28] MEDS: INSULIN GLARGINE SOLOSTAR 100 UNITS/ML 3 ML PEN SC SCH ×2 (08:14→20:08)
[2021-04-28] MEDS ORDERED: CLINDAMYCIN HCL 150 MG CAP PO SCH (10:00)
[2021-04-28 11:38] LABS: Hemoglobin 13.3 g/dL (14.0-18.0); Mean Corpuscular Hemoglobin 28.2 pg (25-34); Mean Corpuscular Hgb Conc 32.4 g/dL (32-36); Mean Platelet Volume 10.1 fL (7.4-10.4); Platelet Count 348 K/uL (130-400); RDW Coefficient of Variation 15.1 % (11.5-14.5); RDW Standard Deviation 48.9 fL (36.4-46.3); Red Blood Count 4.71 M/uL (4.7-6.1); White Blood Count 28.46 K/uL (4.8-10.8)
[2021-04-28 11:59] LABS: BUN Creatinine Ratio 23.1 (10-20); Creatinine Clr Calc Pharmacy 47.7 ml/min; Est GFR (African American) 65.5 ml/min; Est GFR (Non-African American) 56.5 ml/min; Potassium 4.1 mmol/L (3.5-5.1)
[2021-04-28] MEDS: CLINDAMYCIN HCL 150 MG CAP PO SCH ×3 (12:05→23:14)
[2021-04-28] MEDS: CARBOHYDRATES FOR HYPOGLYCEMIA PO PRN (16:45)
--- NOTE | 2021-04-28 17:04 | Hospitalist Progress Note ---
Date of Service April 28, 2021 Assessment & Plan (1) Acute hypoxemic respiratory failure: Plan: resolved, hypoxia resolved with treatment (2) Acute exacerbation of chronic obstructive pulmonary disease: Plan: No wheezing now. Review of initial notes revealed no wheezing. With recent issues with blood sugar, known pneumonia and clear lungs will stop prednisone at this time and cont with antibiotics. Rigors on arrival more consistent with pneumonia than COPD. (3) Pneumonia: Plan: h/o aspiration post stroke in the past. Has had conversations with POWER HAMMER OPERATOR about this and permissive aspiration has been ongoing for two years. POWER HAMMER OPERATOR to re- evaluate today. -CXR showing multifocal pneumonia. COVID-19, influenza, RSV testing negative Leukocytosis of 15K on admission with elevated HR, possible developing sepsis on admission, however, I did not see the patient and would defer that diagnosis to the admitting provider. -transitioned to clindamycin PO today. -blood cultures negative to date. -Pulmonary toilet with nebs, incentive spirometer, flutter valve -improved (4) CVA (cerebral vascular accident): Plan: -History of stroke, PAF -Continue statin and warfarin per home regimen. supratherapeutic INR so warfarin was held. (5) Diabetes mellitus, type 2: Plan: a1c 7.5, will update with a.m. labs -Lantus and NovoLog per protocol while hospitalized -inpatient glucose was elevated from steroids and this is now under control with insulin this am. (6) HTN (hypertension): Plan: -BP controlled, continue metoprolol and amlodipine (7) Paroxysmal atrial fibrillation: Plan: -changed into afib rhythm with HR 90-low 100s , add additional 25mg metoprolol qHS -Anticoagulated on Coumadin, INR therapeutic. (8) DVT prophylaxis: Plan: coumadin Full Dispo-to home in am. Spoke with his daughter by phone who asked that we transition him home in the morning as she needs to have things in place to receive him home. We discussed the care plan and she verbalized understanding of his diagnoses and current lab values. [facility] Admission and Anticipated Discharge Date Admission Date: April 26, 2021 Subjective 85 yo M presented with acute SOB and chills 2/2 possible aspiration pneumonia. He was switched to oral clindamycin He is feeling well rhythm change to afib with HR 90-low 100s, no distress No chest pain, SOB or coughing Ambulating at his baseline. Blood sugar stable after hypoglycemia yesterday Review of Systems Review of Systems: All systems were reviewed and negative except as indicated above. Physical Exam Physical Exam: CONSTITUTIONAL: WNWD, vitals as above, generally well- appearing, NAD EYES: normal conjunctivae, no scleral icterus ENT: external ear and nose normal, MMM NECK: trachea midline RESPIRATORY: clear to auscultation bilaterally, no crackles, rales or wheezes, normal respiratory effort CARDIOVASCULAR: regular rate and rhythm, S1 and 2 heard without murmurs, gallops or rubs, no JVD, no peripheral edema CHEST: inspection of chest was normal GASTROINTESTINAL: soft, nontender, ND, no guarding MUSCULOSKELETAL: strength 5/5 throughout, head is normocephalic and atraumatic SKIN: warm and dry NEUROLOGIC: CN 2-12 grossly intact, no sensory deficit, normal cognition, normal speech, no tremor, no gross focal deficits. PSYCHIATRIC: alert cooperative and oriented to person, place and time. Results & Data Results & Data ([facility]) Vital Signs (Past 12 Hours) Vital Signs Temp Pulse Resp BP BP Pulse Ox 04/28/21 14:58 36.4 C L 108 H 18 130/76 93 04/28/21 10:53 36.8 C 62 17 130/72 94 04/28/21 07:17 36.5 C 71 17 127/60 94 Laboratory Results Short CBC 04/28/21 Range/Units 11:15 WBC 28.46 H (4.8-10.8) K/uL Hgb 13.3 L (14.0-18.0) g/dL Hct 41.0 L (42-52) % Plt Count 348 (130-400) K/uL BMP 04/28/21 11:15 Sodium 142 Potassium 4.1 Chloride 107 Carbon Dioxide 29 BUN 27 H Creatinine 1.17 D Glucose 183 H Calcium 9.0 Urine 04/27/21 Range/Units 17:22 Urine Color Yellow Urine Appearance Clear (Clear) Urine pH 5.0 (4.5-7.5) Ur Specific [place] 1.019 (1.000-1.030) Urine Protein Trace H (Negative) Urine Glucose (UA) 2+ H (Negative) Medications Administered Current Inpatient Medications Albuterol (Albut/Ipratrop 3mg/0.5mg Neb 3 Ml Vial) 3 ml NEB Q4R PRN PRN Reason: Shortness Of Breath Or Wheezing Stop: 05/27/21 10:59 Amlodipine Besylate (Amlodipine Besylate 5 Mg Tab) 10 mg PO QAM [facility] Stop: 05/27/21 08:59 Last Admin: 04/28/21 07:28 Dose: 10 mg Documented by: Atorvastatin Calcium (Atorvastatin 10 Mg Tab) 10 mg PO QAM [facility] Stop: 05/27/21 08:59 Last Admin: 04/28/21 07:29 Dose: 10 mg Documented by: Clindamycin HCl (Clindamycin Hcl 150 Mg Cap) 450 mg PO Q6 [facility]; Protocol Stop: 05/05/21 10:29 Last Admin: 04/28/21 12:05 Dose: 450 mg Documented by: Dextrose (Dextrose 50% 50 Ml Syringe) 25 - 50 ml IV UD PRN; Protocol PRN Reason: Hypoglycemia Protocol Stop: 05/26/21 21:38 Fluticasone/Vilanterol (Fluticasone/Vilanterol 100/25mcg 14 Puffs/Inhaler) 1 puffs INH DAILY [facility] Stop: 05/27/21 08:59 Last Admin: 04/28/21 07:30 Dose: 1 puffs Documented by: Glucagon (Glucagon For Inj 1 Mg Vial) 1 mg SQ UD PRN; Protocol PRN Reason: Hypoglycemia Protocol Stop: 05/26/21 21:38 Glucose (Glucose 10 Tabs/Tube) 4 - 8 tabs PO UD PRN; Protocol PRN Reason: Hypoglycemia Protocol Stop: 05/26/21 21:38 Glucose (Glucose 40% Gel 15 Gm Tube) 15 - 30 gm PO UD PRN; Protocol PRN Reason: Hypoglycemia Protocol Stop: 05/26/21 21:38 Guaifenesin (Guaifenesin 600 Mg Tabcr) 600 mg PO QAM [facility] Stop: 05/27/21 08:59 Last Admin: 04/28/21 07:28 Dose: 600 mg Documented by: Insulin Aspart (Insulin Aspart 100 Units/Ml Vial) 0 units SC ACHS [facility] Stop: 05/27/21 06:34 Last Admin: 04/28/21 12:07 Dose: 7 units Documented by: Insulin Glargine (Insulin Glargine Solostar 100 Units/Ml 3 Ml Pen) 10 units SC BID [facility] Stop: 05/28/21 20:59 Metoprolol Tartrate (Metoprolol Tartrate 50 Mg Tab) [facility] Stop: 05/27/21 08:59 Last Admin: 04/28/21 07:29 Dose: 50 mg Documented by: Metoprolol Tartrate (Metoprolol Tartrate 25 Mg Tab) 25 mg PO [facility] Stop: 05/28/21 20:59 Miscellaneous (Carbohydrates For Hypoglycemia ) 15 - 30 gm PO UD PRN PRN Reason: Hypoglycemia Protocol Stop: 05/26/21 21:38 Last Admin: 04/28/21 16:45 Dose: 15 gm Documented by: Ondansetron HCl (Ondansetron Inj 2 Mg/Ml 2 Ml Vial) 4 mg IV Q6H PRN PRN Reason: Nausea Stop: 05/26/21 21:38 Sennosides (Senna 8.6 Mg Tab) 8.6 [facility] Stop: 05/27/21 08:59 Last Admin: 04/28/21 07:29 Dose: 8.6 mg Documented by: Warfarin Sodium (Warfarin Sod 5 Mg Tab) 5 mg PO [id number]@1600 [facility] Stop: 05/26/21 23:44 Last Admin: 04/27/21 02:31 Dose: 5 mg Documented by: Warfarin Sodium (Warfarin Sod 7.5 Mg Tab) 7.5 mg PO [id number]@1600 [facility] Stop: 05/27/21 15:59 Last Admin: 04/27/21 16:13 Dose: 7.5 mg Documented by: (1) Pneumonia Laterality: bilateral Lung location: unspecified part of lung Pneumonia type: due to unspecified organism Qualified Code(s): J18.9 - Pneumonia, unspecified organism
[2021-04-28] MEDS ORDERED: METOPROLOL TARTRATE 25 MG TAB PO SCH (21:00)
[2021-04-29] MEDS: CLINDAMYCIN HCL 150 MG CAP PO SCH ×2 (05:14→12:30)
[2021-04-29] MEDS: SENNA 8.6 MG TAB PO SCH (07:55)
[2021-04-29] MEDS: METOPROLOL TARTRATE 50 MG TAB PO SCH (07:55)
[2021-04-29] MEDS: amLODIPine BESYLATE 5 MG TAB PO SCH (07:56)
[2021-04-29] MEDS: FLUTICASONE/VILANTEROL 100/25MCG 14 PUFFS/INHALER INH SCH (07:56)
[2021-04-29] MEDS: ATORVASTATIN 10 MG TAB PO SCH (07:56)
[2021-04-29] MEDS: guaiFENesin 600 MG TABCR PO SCH (07:56)
[2021-04-29] MEDS: INSULIN ASPART 100 UNITS/ML VIAL SC SCH ×2 (08:40→12:30)
[2021-04-29] MEDS: INSULIN GLARGINE SOLOSTAR 100 UNITS/ML 3 ML PEN SC SCH (08:40)
[2021-04-29 08:59] LABS: Hematocrit (blood only) 45.1 % (42-52); Hemoglobin 14.7 g/dL (14.0-18.0); Mean Corpuscular Hemoglobin 28.4 pg (25-34); Mean Corpuscular Hgb Conc 32.6 g/dL (32-36); Mean Corpuscular Volume 87.1 fL (80-100); Mean Platelet Volume 9.7 fL (7.4-10.4); Platelet Count 402 K/uL (130-400); RDW Coefficient of Variation 15.2 % (11.5-14.5); RDW Standard Deviation 48.6 fL (36.4-46.3); Red Blood Count 5.18 M/uL (4.7-6.1); White Blood Count 26.98 K/uL (4.8-10.8)
[2021-04-29 09:08] LABS: INR 3.5 (0.9-1.1); Prothrombin Time 31.9 Seconds (9.0-12.0)
[2021-04-29 09:17] LABS: BUN Creatinine Ratio 22.1 (10-20); Creatinine Clr Calc Pharmacy 49.8 ml/min; Est GFR (African American) 69.1 ml/min; Est GFR (Non-African American) 59.6 ml/min; Magnesium 2.4 mg/dl (1.8-2.4); Potassium 3.7 mmol/L (3.5-5.1)
[2021-04-29 09:19] LABS: Eosinophils # (auto) 0.01 K/uL (0-0.5); Immature Granulocytes % (auto) 0.4 %; Lymphocytes # (auto) 3.04 K/uL (1.2-3.4); Lymphocytes % (auto) 11.3 %; Monocytes # (auto) 1.78 K/uL (0.11-0.59); Monocytes % (auto) 6.6 %; Neutrophils # (auto) 22.05 K/uL (1.4-6.5); Neutrophils % (auto) 81.7 %
[2021-04-29] MEDS ORDERED: levoFLOXacin 750 MG TAB PO SCH (11:00)
--- NOTE | 2021-04-29 11:34 | CT Scan Report ---
CT chest diagnostic wo con CLINICAL HISTORY: Evaluate bilateral airspace opacities and asymmetric left hilar prominence. COMPARISON STUDY: Portable chest from 04/26/2021 CT DOSE: 427.28 mGycm TECHNIQUE: Standard CT of the Chest was performed without IV contrast. A dose lowering technique was utilized adhering to the principles of ALARA. FINDINGS: Airway: The airway is clear. No endobronchial lesion is identified. Lungs: Mild patchy groundglass opacities are present throughout both lungs characteristic of a viral type pneumonitis and Covid 19 pneumonia. Additionally, there is pleural thickening at both lung bases and bibasilar atelectasis, right greater than left. No confluent alveolar opacities or air bronchogr ams are seen. No definite pulmonary nodules are identified. Pleura: There is no evidence for pleural effusion. There is no evidence for pneumothorax. Mediastinum: The study is limited by lack of intravenous contrast. There is no evidence for pathologi c adenopathy. The prominence of the left hilum is most likely vascular in nature. The heart size is within normal limits. There is evidence for coronary artery calcification and mitr al valve calcification. The thoracic aorta is within normal limits. There is mild atherosclerotic felix cification of the aortic arch and origin of the great vessels. There is no evidence for pericardial e ffusion. Upper abdomen: The adrenal glands are normal bilaterally. There is a small hiatal hernia. Osseous structures: There is no acute osseous pathology. IMPRESSION: 1. Mild patchy groundglass opacities are present throughout both lungs characteristic of a viral type pneumonitis and probable early Covid 19 pneumonia. 2. The study is limited by lack of intravenous contrast and the left hilar prominence is most likely vascular in nature. 3. Coronary artery and mitral annular calcification. ACT 112: Negative or not required by law. Electronically signed by: Carlton Short M.D. 04/29/2021 11:33 AM
--- NOTE | 2021-04-29 15:30 | Ultrasound Report ---
BILATERAL LOWER EXTREMITY VENOUS DOPPLER HISTORY: Acute pain and swelling of the lower legs rule out dvt COMPARISON STUDY: None. FINDINGS: There is normal compressibility, flow, and augmentation within the bilateral lower extremit y deep venous systems. IMPRESSION: No DVT within the right or left lower extremity. ACT 112: Negative or not required by law. Electronically signed by: Taiwo Naqvi M.D. 04/29/2021 3:29 PM
--- NOTE | 2021-04-29 16:22 | Discharge Summary ---
Date of Service April 29, 2021 Admission HPI Per Admitting Provider 85-year-old male with PMH DM type II, paroxysmal atrial fibrillation anticoagulated on Coumadin, history of CVA, COPD, and other problems listed below who presents the ED for evaluation of shortness of breath. Patient reports that he suddenly developed shortness of breath today. He denies cough and sputum production. While in the ED, patient developed nausea and vomiting. No abdominal pain. Denies hematemesis and coffee-ground emesis. No bright red bleeding per rectum or dark tarry stools. Patient reports he otherwise has been feeling well recently. No fevers or chills. Denies lightheadedness, dizziness, diaphoresis, syncopal events. No urinary symptoms. In the ED, patient was hypoxic on room air at 80%. At one point patient was requiring nonrebreather 12 L, currently saturating well on a 7 L OxiMax the time my exam. Labs show WBC 15 K, INR 1.9. CXR shows signs of multifocal pneumonia. COVID-19, influenza, RSV testing negative. Patient was given IV Tylenol, nebulizer, IV famotidine, IV Solu-Medrol 125 mg, IV Zofran, IV Zosyn, IVF. Admission Exam Per Admitting Provider Exam: NC in place Lungs: decreased BS b/l, no wheezing Cardiac: normal S1/S2, no murmur Abd: ND, NT, soft LE: trace pitting edema b/l MSK: mildly contracted R hand and R foot Psych: AAOx3, normal affect Principal Diagnosis Acute hypoxemia respiratory failure-aspiration pneumonia possible sepsis-resuscitated leukocytosis esophageal dysmotility with permissive aspiration Discharge Exam CONSTITUTIONAL: WNWD, vitals as above, generally well-appearing, NAD EYES: normal conjunctivae, no scleral icterus ENT: external ear and nose normal, MMM NECK: trachea midline RESPIRATORY: clear to auscultation bilaterally, no crackles, rales or wheezes, normal respiratory effort CARDIOVASCULAR: regular rate and rhythm, S1 and 2 heard without murmurs, gallops or rubs, no JVD, no peripheral edema CHEST: inspection of chest was normal GASTROINTESTINAL: soft, nontender, ND, no guarding MUSCULOSKELETAL: strength 5/5 throughout, head is normocephalic and atraumatic SKIN: warm and dry NEUROLOGIC: CN 2-12 grossly intact, no sensory deficit, normal cognition, normal speech, no tremor, no gross focal deficits. PSYCHIATRIC: alert cooperative and oriented to person, place and time. Discharge Data Allergies Allergy/AdvReac Type Severity Reaction Status Date / Time No Known Allergies Allergy Verified 04/26/21 17:09 Consultations 04/26/21 17:32 ED Decision to Admit Stat Ordered Studies Laboratory Results WBC 26.98 K/uL (4.8-10.8) H 04/29/21 08:33 RBC 5.18 M/uL (4.7-6.1) 04/29/21 08:33 Hgb 14.7 g/dL (14.0-18.0) 04/29/21 08:33 Hct 45.1 % (42-52) 04/29/21 08:33 MCV 87.1 fL (80-100) 04/29/21 08:33 MCH 28.4 pg (25-34) 04/29/21 08:33 MCHC 32.6 g/dL (32-36) 04/29/21 08:33 RDW Std Deviation 48.6 fL (36.4-46.3) H 04/29/21 08:33 RDW Coeff of Mainor 15.2 % (11.5-14.5) H 04/29/21 08:33 Plt Count 402 K/uL (130-400) H 04/29/21 08:33 MPV 9.7 fL (7.4-10.4) 04/29/21 08:33 Immature Gran % (Auto) 0.4 % 04/29/21 08:33 Neut % (Auto) 81.7 % 04/29/21 08:33 Lymph % (Auto) 11.3 % 04/29/21 08:33 [place] % (Auto) 6.6 % 04/29/21 08:33 Eos % (Auto) 0.0 % 04/29/21 08:33 Baso % (Auto) 0.0 % 04/29/21 08:33 Neut # (Auto) 22.05 K/uL (1.4-6.5) H 04/29/21 08:33 Lymph # (Auto) 3.04 K/uL (1.2-3.4) 04/29/21 08:33 [place] # (Auto) 1.78 K/uL (0.11-0.59) H 04/29/21 08:33 Eos # (Auto) 0.01 K/uL (0-0.5) 04/29/21 08:33 Baso # (Auto) 0.00 K/uL (0-0.2) 04/29/21 08:33 Immature Gran # (Auto) 0.10 K/uL (0.00-0.02) H 04/29/21 08:33 PT 31.9 Seconds (9.0-12.0) H 04/29/21 08:33 INR 3.5 (0.9-1.1) H 04/29/21 08:33 APTT 29.8 Seconds (21.0-31.0) 04/26/21 15:30 PTT Ratio 1.1 04/26/21 15:30 VBG pH 7.36 (7.36-7.41) 04/26/21 16:15 VBG pCO2 52 mmHg (38-50) H 04/26/21 16:15 VBG pO2 38 mmHg 04/26/21 16:15 VBG HCO3 29 mmol/L 04/26/21 16:15 VBG O2 Saturation 66.7 % 04/26/21 16:15 VBG Base Excess 2.2 mEq/L 04/26/21 16:15 Barometric Pressure 735.6 mm/Hg 04/26/21 16:15 Sodium 141 mmol/L (136-145) 04/29/21 08:33 Potassium 3.7 mmol/L (3.5-5.1) 04/29/21 08:33 Chloride 106 mmol/L (98-107) 04/29/21 08:33 Carbon Dioxide 29 mmol/L (21-32) 04/29/21 08:33 Anion Gap 7.0 (3-11) 04/29/21 08:33 BUN 25 mg/dl (7-18) H 04/29/21 08:33 Creatinine 1.12 mg/dl (0.6-1.4) 04/29/21 08:33 Est Cr Clr Drug Dosing 49.8 ml/min 04/29/21 08:33 Est GFR ( Amer) 69.1 ml/min 04/29/21 08:33 Est GFR (Non-Af Amer) 59.6 ml/min 04/29/21 08:33 BUN/Creatinine Ratio 22.1 (10-20) H 04/29/21 08:33 Glucose 181 mg/dl (70-99) H 04/29/21 08:33 POC Glucose 77 mg/dl (70-99) 04/29/21 11:32 Estimat Average Glucose 169 mg/dl 04/27/21 05:18 Hemoglobin A1c 7.5 % (4.5-5.6) H 04/27/21 05:18 Lactate 1.3 mmol/L (0.4-2.0) 04/26/21 16:15 Calcium 9.0 mg/dl (8.5-10.1) 04/29/21 08:33 Phosphorus 2.0 mg/dl (2.5-4.9) L 04/29/21 08:33 Magnesium 2.4 mg/dl (1.8-2.4) 04/29/21 08:33 Total Bilirubin 1.4 mg/dl (0.2-1) H 04/26/21 15:30 AST 11 U/L (15-37) L 04/26/21 15:30 ALT 20 (12-78) 04/26/21 15:30 Alkaline Phosphatase 58 U/L (45-117) 04/26/21 15:30 Troponin I < 0.015 ng/ml (0-0.045) 04/26/21 15:30 NT-Pro-B Natriuret Pep 318 pg/ml (0-1800) 04/26/21 15:30 Total Protein 7.5 gm/dl (6.4-8.2) 04/26/21 15:30 Albumin 3.5 gm/dl (3.4-5.0) 04/26/21 15:30 Globulin 4.0 gm/dl (2.5-4.0) 04/26/21 15:30 Albumin/Globulin Ratio 0.9 (0.9-2) 04/26/21 15:30 Lipase 89 U/L (73-393) 04/26/21 15:30 Beta-Hydroxybutyric Acd 4.51 mg/dl (0.2-2.81) H 04/27/21 05:18 Procalcitonin 1.59 ng/ml (0-0.5) H 04/29/21 08:33 Specimen Hemolysis 04/26/21 15:30 Urine Color Yellow 04/27/21 17:22 Urine Appearance Clear (Clear) 04/27/21 17:22 Urine pH 5.0 (4.5-7.5) 04/27/21 17:22 Ur Specific Tina 1.019 (1.000-1.030) 04/27/21 17:22 Urine Protein Trace (Negative) H 04/27/21 17:22 Urine Glucose (UA) 2+ (Negative) H 04/27/21 17:22 Urine Ketones Trace (Negative) H 04/27/21 17:22 Urine Blood Negative (Negative) 04/27/21 17:22 Urine Nitrite Negative (Negative) 04/27/21 17:22 Urine Bilirubin Negative (Negative) 04/27/21 17:22 Urine Urobilinogen Negative (Negative) 04/27/21 17:22 Ur Leukocyte Esterase Negative (Negative) 04/27/21 17:22 Urine WBC (Auto) 1-5 /hpf (0-5) 04/27/21 17:22 Urine RBC (Auto) 0-4 /hpf (0-4) 04/27/21 17:22 U Hyaline Cast (Auto) 1-5 /lpf (0-5) 04/27/21 17:22 U Epithel Cells (Auto) 5-10 /lpf (0-5) H 04/27/21 17:22 Urine Bacteria (Auto) Negative (Negative) 04/27/21 17:22 SARS-CoV-2 (PCR) NEGATIVE (Negative) 04/26/21 16:23 Influenza Type A (PCR) Negative (Neg) 04/26/21 16:23 Influenza Type B (PCR) Negative (Neg) 04/26/21 16:23 RSV (RT-PCR) Negative (Neg) 04/26/21 16:23 SARS-CoV-2, RNA, NAAT NEGATIVE (NEGATIVE) 04/29/21 12:05 Impressions Chest X-Ray 04/26/21 15:13 XR chest 1V portable, XR KUB/Abdomen 1 view HISTORY: 85 years-old Male SEPSIS acute sepsis COMPARISON: KUB 10/02/2020, chest radiograph 04/12/2020, CT abdomen and pelvis 12/05/2019 TECHNIQUE: Portable AP view of the chest with KUB radiograph FINDINGS: CHEST: Cardiac silhouette is upper limits of normal in size. Interstitial coarsening with ill-defined bilateral mid to lower lung zone predominant airspace opacities. Asymmetric prominence of the left hilum. Degenerative changes of the shoulders and spine with left shoulder rotator cuff calcific tendinosis. KUB: Nonobstructive bowel gas pattern. Unchanged 3 mm mesenteric calcification of the right upper quadrant abdomen. No definite renal or ureteral calculi identified. The bowel gas pattern is nonobstructive. Surgical suture material the abdominal right lower quadrant redemonstrated. Degenerative changes of the spine, pelvis and hips. IMPRESSION: 1. Bilateral mid to lower lung zone airspace opacities are suggestive of multifocal pneumonia. Follow-up imaging to document resolution is recommended. 2. Asymmetric left hilar prominence is likely secondary to airspace disease and/or adenopathy. Attention at follow-up recommended to exclude an underlying lesion. 3. Nonobstructive bowel gas pattern. ACT 112: Negative or not required by law. The above report was generated using voice recognition software. It may contain grammatical, syntax or spelling errors. Electronically signed by: Taiwo Naqvi M.D. 04/26/2021 4:46 PM KUB X-Ray 04/26/21 15:22 XR chest 1V portable, XR KUB/Abdomen 1 view HISTORY: 85 years-old Male SEPSIS acute sepsis COMPARISON: KUB 10/02/2020, chest radiograph 04/12/2020, CT abdomen and pelvis 12/05/2019 TECHNIQUE: Portable AP view of the chest with KUB radiograph FINDINGS: CHEST: Cardiac silhouette is upper limits of normal in size. Interstitial coarsening with ill-defined bilateral mid to lower lung zone predominant airspace opacities. Asymmetric prominence of the left hilum. Degenerative changes of the shoulders and spine with left shoulder rotator cuff calcific tendinosis. KUB: Nonobstructive bowel gas pattern. Unchanged 3 mm mesenteric calcification of the right upper quadrant abdomen. No definite renal or ureteral calculi identified. The bowel gas pattern is nonobstructive. Surgical suture material the abdominal right lower quadrant redemonstrated. Degenerative changes of the spine, pelvis and hips. IMPRESSION: 1. Bilateral mid to lower lung zone airspace opacities are suggestive of multifocal pneumonia. Follow-up imaging to document resolution is recommended. 2. Asymmetric left hilar prominence is likely secondary to airspace disease and/or adenopathy. Attention at follow-up recommended to exclude an underlying lesion. 3. Nonobstructive bowel gas pattern. ACT 112: Negative or not required by law. The above report was generated using voice recognition software. It may contain grammatical, syntax or spelling errors. Electronically signed by: Taiwo Naqvi M.D. 04/26/2021 4:[address] 04/29/21 10:27 CT chest diagnostic wo con CLINICAL HISTORY: Evaluate bilateral airspace opacities and asymmetric left hilar prominence. COMPARISON STUDY: Portable chest from 04/26/2021 CT DOSE: 427.28 mGycm TECHNIQUE: Standard CT of the Chest was performed without IV contrast. A dose lowering technique was utilized adhering to the principles of ALARA. FINDINGS: Airway: The airway is clear. No endobronchial lesion is identified. Lungs: Mild patchy groundglass opacities are present throughout both lungs characteristic of a viral type pneumonitis and Covid 19 pneumonia. Additionally, there is pleural thickening at both lung bases and bibasilar atelectasis, right greater than left. No confluent alveolar opacities or air bronchograms are seen. No definite pulmonary nodules are identified. Pleura: There is no evidence for pleural effusion. There is no evidence for pneumothorax. Mediastinum: The study is limited by lack of intravenous contrast. There is no evidence for pathologic adenopathy. The prominence of the left hilum is most likely vascular in nature. The heart size is within normal limits. There is evidence for coronary artery calcification and mitral valve calcification. The thoracic aorta is within normal limits. There is mild atherosclerotic calcification of the aortic arch and origin of the great vessels. There is no evidence for pericardial effusion. Upper abdomen: The adrenal glands are normal bilaterally. There is a small hiatal hernia. Osseous structures: There is no acute osseous pathology. IMPRESSION: 1. Mild patchy groundglass opacities are present throughout both lungs characteristic of a viral type pneumonitis and probable early Covid 19 pneumonia. 2. The study is limited by lack of intravenous contrast and the left hilar pr ominence is most likely vascular in nature. 3. Coronary artery and mitral annular calcification. ACT 112: Negative or not required by law. Electronically signed by: Carlton Short M.D. 04/29/2021 11:33 AM Venous Doppler Study 04/29/21 11:58 BILATERAL LOWER EXTREMITY VENOUS DOPPLER HISTORY: Acute pain and swelling of the lower legs rule out dvt COMPARISON STUDY: None. FINDINGS: There is normal compressibility, flow, and augmentation within the bilateral lower extremity deep venous systems. IMPRESSION: No DVT within the right or left lower extremity. ACT 112: Negative or not required by law. Electronically signed by: Taiwo Naqvi M.D. 04/29/2021 3:29 PM Hospital Course (1) Acute hypoxemic respiratory failure: resolved, hypoxia resolved with treatment (2) Acute exacerbation of chronic obstructive pulmonary disease: No wheezing now. Review of initial notes revealed no wheezing. With recent issues with blood sugar, known pneumonia and clear lungs prednisone was stopped and antibiotics were continued. Rigors on arrival more consistent with pneumonia than COPD. 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 Has had conversations with [facility] [employer] about this and permissive aspiration has been ongoing for two years. [facility] [employer] re- evaluated this admission. Swallow evaluation was attempted at the bedside, however patient refused to participate in testing. Aspiration is assumed as the cause of pneumonia in the setting of stroke and aspiration pneumonia in the past. Multiple providers discussed with him options other than oral intake of food and water, however, he chose to continue on his pured diet with aspiration precautions and strict mouth care. These recommendations were emphasized again at discharge. At time of discharge she was oxygenating well on room air. (4) CVA (cerebral vascular accident): -History of stroke, PAF -Continue statin and warfarin per home regimen. supratherapeutic INR so warfarin was held. INR was 3.5 on time of discharge and warfarin was continued with close follow-up with anticoagulation clinic for repeat INR. (5) Paroxysmal atrial fibrillation: -converted from sinus rhythm to afib in setting of pulmonary infection with elevated HR 90-low 100s, metoprolol was increased at time of discharge. -Anticoagulated on Coumadin, INR therapeutic. Total Time Total Time Spent Total Time Spent (In Minutes): 60 Discharge Plan Discharge Items Patient Disposition: Home - Self-Care Reason For Visit: SHORTNESS OF BREATH Discharge Diagnosis: Acute hypoxemia respiratory failure-aspiration pneumonia possible sepsis-resuscitated leukocytosis esophageal dysmotility with permissive aspiration Condition on Discharge: Good Activity: Resume your previous activity Non-emergency contact: Primary Care Provider Call non-emergency contact if: you have any medication questions and your symptoms worsen Follow-up/Referrals: Tamie Portillo PA-C [Primary Care Provider] - Diet: Carb Consistent or DM2 Diet Texture: Pureed (blended smooth) Addtl Attending Provider Instructions: You were treated for aspiration pneumonia. Please continue taking 5 mg daily of warfarin until you follow-up with your anticoagulation clinic. Antibiotics may cause your INR level to rise because of the medication interaction. Close followup and check of your INR is recommended in 2-3 days. Repeat chest imaging in 4 weeks is recommended to ensure complete resolution of pneumonia and ensure there are no additional concerning features. This may be ordered by her primary care doctor. It is recommended that you follow-up with your primary care doctor within 1 week of discharge from the hospital to ensure you are still feeling well after returning home and to ensure you are tolerating the antibiotics. Of note your metoprolol was increased to 50 mg by mouth twice daily from 50 mg by mouth once daily. Follow-up with your primary care doctor will also be to address your heart rate and adjust your medications as needed. You underwent a swallow study well hospitalized showing evidence of aspiration. As we discussed her alternatives to feeding aside from by mouth however, we are opting for permissive aspiration at this point. This means recurrent aspiration pneumonia is a possibility. Please continue this discussion with your primary care physician. When you follow-up with your primary care physician you should also have a repeat complete blood count as your white blood cell count was elevated while here in the hospital. It was a pleasure taking care of you! Please call if you have any questions or problems. You can reach a [facility] hospitalist on duty at [facility] 24 hours a day by calling [phone]. Take care of yourself. Michelle Laguerre, [facility] Hospitalist Pending Studies at Discharge: No Stand-Alone Forms: My [facility] Medications and DC Order Prescriptions: New warfarin 5 mg tablet 5 mg PO DAILY Qty: 30 RF: 0 clindamycin HCl 150 mg Capsule 450 mg PO Q6 Qty: 60 RF: 0 levofloxacin 750 mg Tablet 750 mg PO DAILY@1100 Qty: 5 RF: 0 Continued insulin aspart U-100 [Novolog PenFill U-100 Insulin] 100 unit/mL cartridge See Rx Instructions .ROUTE .COMPLEX RF: 0 guaifenesin [Mucinex] 600 mg tablet extended release 12hr 600 mg PO QAM RF: 0 sennosides 8.6 mg tablet 8.6 mg PO QAM RF: 0 docusate sodium [Colace] 100 mg Capsule 100 mg PO QAM RF: 0 atorvastatin 20 mg Tablet 10 mg PO QAM RF: 0 Lantus Solostar U-100 Insulin 100 unit/mL (3 mL) insulin pen 17 unit SC HS RF: 0 cholecalciferol (vitamin D3) [Vitamin D3] 25 mcg (1,000 unit) Tablet 1,000 unit PO QPM RF: 0 albuterol sulfate 2.5 mg /3 mL (0.083 %) Solution For Nebulization 2.5 mg INHALATION QID PRN (Reason: Shortness Of Breath) RF: 0 albuterol sulfate 90 mcg/actuation Hfa Aerosol Inhaler 1 puff INHALATION QID PRN (Reason: Shortness Of Breath) RF: 0 amlodipine 10 mg Tablet 10 mg PO QAM RF: 0 budesonide-formoterol [Symbicort] 160-4.5 mcg/actuation Hfa Aerosol Inhaler 2 puff INHALATION QAM RF: 0 Changed metoprolol tartrate 50 mg Tablet 50 mg PO BID Qty: 60 RF: 0 Discontinued warfarin 2.5 mg Tablet See Rx Instructions .ROUTE .COMPLEX RF: 0 Discharge Orders: Discharge Order (Routine); Ordered 04/29/21 Ordered By: Michelle Santa/Other Patient Handouts: Managing Type 2 Diabetes Admission Data Admit Date/Time: 04/26/21 17:58 Attending Provider: Michelle Laguerre Admit Provider: Iron Gillespie Primary Care Provider: Tamie Portillo Other Providers: Iron Gillespie ; [facility] Other Interventions: Discharge Summary Assessment (RN) Last Done: 04/29/21 16:25
== END 2021-04-29 17:46 | disposition home or self-care (01) | DRG 871 ==
LOC: ED 15:07 → EDINP 17:58 → SUATTDRO 17:58 → EDINP 20:29 → 2N 04-27 14:26
DX: K22.4 Dyskinesia of esophagus; E78.5 Hyperlipidemia, unspecified; M10.9 Gout, unspecified; E11.9 Type 2 diabetes mellitus without complications; I69.331 Monoplegia of upper limb following cerebral infarction affecting right dominant side; A41.9 Sepsis, unspecified organism; J44.1 Chronic obstructive pulmonary disease with (acute) exacerbation; Z83.3 Family history of diabetes mellitus; N40.0 Benign prostatic hyperplasia without lower urinary tract symptoms; I10 Essential (primary) hypertension; Z79.4 Long term (current) use of insulin; J69.0 Pneumonitis due to inhalation of food and vomit; Z79.01 Long term (current) use of anticoagulants; J96.21 Acute and chronic respiratory failure with hypoxia; I48.0 Paroxysmal atrial fibrillation

== ENCOUNTER 2022-07-06 20:30 | Inpatient (IN) ==
--- NOTE | 2022-07-06 20:39 | Emergency Department Note ---
Impression & Plan Altered mental status, History of cardioembolic cerebrovascular accident (CVA) ED Provider Note NAME: LIGIA NOBLES Jr AGE: 86 SEX: M : 1935 ARRIVES VIA: Ambulance INFORMANT: Patient, ED PROVIDER(S): Michael Chance MD CHIEF COMPLAINT: Confusion MEDICAL DECISION MAKING: Patient was seen due to concern for change in mentation. No reported falls or trauma. Was able to look at prior records as the patient is unable to provide history. Blood work was obtained and the patient did get a CT after obtaining a [id number] BMP. The patient did have a CT head and CT angiography of the head and neck ordered. Unknown LKW so no stroke alert at this time and not a tNK candidate. Patient's blood work is grossly unremarkable. Patient has normal white count H&H and platelet count. Kidney function unremarkable. BSG in the 240s. Patient did appear to be restless. No signs of trauma but the patient was given a small amount of pain medication. Imaging negative. Given the patient's alteration in mentation I did speak with the on-call hospitalist Dr. Calzada and the patient was admitted to the medicine service. Prior /Outside records reviewed: Did review the patient's most recent discharge summary from April 2021. The patient does have a known history of A-fib anticoagulated on Coumadin history of CVA and COPD. I did review the patient's neurology note from September 2019 and the patient is of a history of multiple prior strokes including left thalamic left MCA with residual right-sided weakness numbness suspected brainstem stroke with residual dysarthria and dysphagia. Progress note the patient's language was intact including naming comprehension repetition cognition and memory grossly intact. Patient does have a history of dysarthria Differential diagnosis: Infection, dehydration, metabolic abnormality, hypo/hyperglycemia, electrolyte disturbance, anemia, hypoxia, cardiac sources, intracerebral event, toxicologic, neurologic, as well as other pathologies. Diagnostics, as interpreted by me: ECG: Sinus first-degree AV block, rate of 94, prolonged QT, normal axis. Cardiac monitoring: An order was placed for continuous cardiac monitoring. The monitor shows a rate of 88 with sinus rhythm. Patient was placed on pulse oximetry Medical decision rules: none Imaging studies: See below HPI: Patient presents with a an unknown last known well as he has been wandering the halls at his [place] residence. The patient reportedly had no signs of trauma or falls vital signs were grossly unremarkable per EMS but BSG was 250. They did present with the medication list. They did report that the patient may have some issues with speech but they are typically not this pronoun remi. The history is limited given the patient's inability to communicate at the bedside although the patient is awake and alert. PAST MEDICAL HISTORY: See Below PAST SURGICAL HISTORY: See Below SOCIAL HISTORY: See Below HOME MEDICATIONS: See Below ALLERGIES: See Below VITALS: See Below PHYSICAL EXAMINATION: GENERAL: NAD, wearing a mask, non-toxic. EYE EXAM: Normal conjunctiva. PERRL, no anisocoria and EOM's grossly intact w/o pain. NECK: Supple, no nuchal rigidity, no adenopathy, non-tender. No signs of meningismus. FROM of the neck with good chin to chest and neck extension. No stridor. LUNGS: Clear to auscultation. Normal chest wall mechanics. HEART: NSR, no MRG. ABDOMEN: Abdomen soft, non-tender, normo-active bowel sounds, no masses, no rebound or guarding. BACK: No CVA TTP. SKIN: No rashes and no bruising. UPPER EXTREMITIES: Upper extremities are grossly normal. LOWER EXTREMITIES: Grossly normal, no edema. No bruising to the buttocks or legs. 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 Jerri Hayden @ [facility] Neurology Transient ischemic attack (TIA) 07/2018--no lasting deficits from that mini stroke Surgical History History of abdominal surgery removal of stomach cancer mass History of appendectomy History of bilateral cataract extraction History of esophagogastroduodenoscopy (EGD) History of gastric restrictive surgery History of nasal polypectomy History of prostate surgery History of tooth extraction most teeth removed Status post insertion of percutaneous endoscopic gastrostomy (PEG) tube Family History Brother Family history of diabetes mellitus Other No family history of adverse response to anesthesia No family history of bleeding disorder Social History Smoking Status: Unknown if ever smoked Second Hand Exposure: No; Hx Alcohol Use: No Hx Substance Use: No Preferred Language: Telugu Communication Ability: Effective Merchandise Associate Required: Yes Beliefs That Will Affect Care: None marital status: Current Living Situation: Alone Current Living Situation Comment: [place] current occupational status: retired Feels Safe at Home: Yes Assistive Devices: Cane and Walker Allergies Allergies Allergy/AdvReac Type Severity Reaction Status Date / Time No Known Allergies Allergy Verified 07/06/22 22:17 Home Meds Home Medications Medication Instructions Recorded Confirmed docusate sodium 100 mg capsule 100 mg PO QAM 09/11/19 07/06/22 (Colace) albuterol sulfate 2.5 mg/3 mL 2.5 mg inhalation QID PRN 10/23/19 07/06/22 (0.083 %) solution for nebulization Shortness Of Breath atorvastatin 20 mg tablet 10 mg PO QAM 11/14/19 07/06/22 insulin glargine 100 unit/mL (3 17 unit SC HS 12/04/19 07/06/22 mL) subcutaneous pen (Lantus Solostar U-100 Insulin) guaifenesin 600 mg tablet, 600 mg PO QAM 10/11/20 07/06/22 extended release 12 hr (Mucinex) sennosides 8.6 mg tablet 8.6 mg PO QAM 10/11/20 07/06/22 amlodipine 10 mg tablet 10 mg PO QAM 01/24/21 07/06/22 Previous Rx's Medication Instructions Recorded metoprolol tartrate 50 mg tablet 50 mg PO BID #60 tabs 04/29/21 warfarin 5 mg tablet 5 mg PO DAILY #30 tabs 04/29/21 fluticasone 250 mcg-salmeterol 50 1 inh inhalation BID #90 puffs 10/10/21 mcg/dose blistr powdr for inhalation (Wixela Inhub) amoxicillin 875 mg-potassium 1 tab PO BID #8 tabs 07/08/22 clavulanate 125 mg tablet Results & Data (ED) Vital Signs Vital Signs - 24 hr 07/06/22 20:24 Temperature 37 C Temperature Source Oral Sepsis Recent Fever Within 48 Hours No Sepsis New/Unexplained Change in Mental Status Yes Sepsis Action Taken by Nursing No Action Required Home Medications Current Medication List: was personally reviewed by me Laboratory Data Attestation: I reviewed the patient's lab results. 07/08/22 07:01 07/08/22 07:01 Lab Results 07/06/22 07/06/22 07/06/22 Range/Units 20:34 20:34 20:34 WBC 10.21 (4.8-10.8) K/ul RBC 5.09 (4.70-6.10) M/uL Hgb 14.2 (14.0-18.0) g/dl POC Hgb (14.0-18.0) g/dl Hct 42.8 (42.0-52.0) % POC Hct (42-52) % MCV 84.1 (80.0-100.0) fL MCH 27.9 (25.0-34.0) pg MCHC 33.2 (32.0-36.0) g/dL RDW Std Deviation 43.9 (36.4-46.3) fL RDW Coeff of Mainor 14.4 (11.5-14.5) % Plt Count 295 (130-400) K/uL MPV 10.3 (9.4-12.4) fL Immature Gran % (Auto) 0.3 % Neut % (Auto) 62.0 % Lymph % (Auto) 25.3 % Reeves % (Auto) 7.9 % Eos % (Auto) 4.1 % Baso % (Auto) 0.4 % Neut # (Auto) 6.33 (1.40-6.50) K/uL Lymph # (Auto) 2.58 (1.2-3.4) K/uL Reeves # (Auto) 0.81 H (0.11-0.59) K/uL Eos # (Auto) 0.42 (0-0.50) K/uL Baso # (Auto) 0.04 (0-0.2) K/uL Immature Gran # (Auto) 0.03 (0.01-0.20) K/uL PT 26.2 H (9.0-12.0) Seconds INR 2.6 H (0.9-1.1) APTT 40.2 H (21.0-31.0) Seconds PTT Ratio 1.5 POC Sodium (135-144) mmol/L Sodium 141 (136-145) mmol/L POC Potassium (3.3-5.0) mmol/L Potassium 4.3 (3.5-5.1) mmol/L POC Chloride (101-112) mmol/L Chloride 106 (98-107) mmol/L Carbon Dioxide 30 (21-32) mmol/L POC Total CO2 (24-31) mmol/L Anion Gap 5 (3-11) POC Anion Gap (16-25) mmol/L POC BUN (7-18) mg/dl BUN 19 (6-23) mg/dl Creatinine 1.20 (0.6-1.4) mg/dl POC Creatinine (0.6-1.3) mg/dl Est Cr Clr Drug Dosing Not Reportable Est GFR ( Amer) 63.1 ml/min Est GFR (Non-Af Amer) 54.4 ml/min BUN/Creatinine Ratio 15.8 (10-20) Glucose 246 H (70-99(Fasting)) mg/dl POC Glucose (other) (70-99) mg/dl Calcium 9.1 (8.5-10.1) mg/dl POC Ioniz Calcium Libby (1.12-1.32) mmol/l Magnesium 1.9 (1.7-2.4) mg/dl Total Bilirubin 1.0 (0.2-1.0) mg/dl AST 11 L (13-39) U/L ALT 13 (7-52) U/L Alkaline Phosphatase 53 (34-104) U/L Troponin I High Sens 8.3 (0-20) pg/ml Total Protein 6.9 (6.0-8.3) gm/dl Albumin 4.1 (3.4-5.0) gm/dl Globulin 2.8 (2.5-4.0) gm/dl Albumin/Globulin Ratio 1.5 (0.9-2) Urine Color Urine Appearance (Clear) Urine pH (4.5-7.5) Ur Specific Terrell (1.000-1.030) Urine Protein (Negative) Urine Glucose (UA) (Negative) Urine Ketones (Negative) Urine Blood (Negative) Urine Nitrite (Negative) Urine Bilirubin (Negative) Urine Urobilinogen (Negative) Ur Leukocyte Esterase (Negative) Urine WBC (Auto) (0-5) /hpf Urine RBC (Auto) (0-4) /hpf U Hyaline Cast (Auto) (0-5) /lpf U Epithel Cells (Auto) (0-5) /lpf Urine Bacteria (Auto) (Negative) SARS-CoV-2 (PCR) (Negative) Influenza Type A (PCR) (Neg) Influenza Type B (PCR) (Neg) RSV (RT-PCR) (Neg) 07/06/22 07/06/22 07/06/22 Range/Units 20:38 20:43 21:27 WBC (4.8-10.8) K/ul RBC (4.70-6.10) M/uL Hgb (14.0-18.0) g/dl POC Hgb 15.0 (14.0-18.0) g/dl Hct (42.0-52.0) % POC Hct 44 (42-52) % MCV (80.0-100.0) fL MCH (25.0-34.0) pg MCHC (32.0-36.0) g/dL RDW Std Deviation (36.4-46.3) fL RDW Coeff of Mainor (11.5-14.5) % Plt Count (130-400) K/uL MPV (9.4-12.4) fL Immature Gran % (Auto) % Neut % (Auto) % Lymph % (Auto) % Reeves % (Auto) % Eos % (Auto) % Baso % (Auto) % Neut # (Auto) (1.40-6.50) K/uL Lymph # (Auto) (1.2-3.4) K/uL Reeves # (Auto) (0.11-0.59) K/uL Eos # (Auto) (0-0.50) K/uL Baso # (Auto) (0-0.2) K/uL Immature Gran # (Auto) (0.01-0.20) K/uL PT (9.0-12.0) Seconds INR (0.9-1.1) APTT (21.0-31.0) Seconds PTT Ratio POC Sodium 142 (135-144) mmol/L Sodium (136-145) mmol/L POC Potassium 4.2 (3.3-5.0) mmol/L Potassium (3.5-5.1) mmol/L POC Chloride 105 (101-112) mmol/L Chloride (98-107) mmol/L Carbon Dioxide (21-32) mmol/L POC Total CO2 28 (24-31) mmol/L Anion Gap (3-11) POC Anion Gap 15.0 L (16-25) mmol/L POC BUN 19 H (7-18) mg/dl BUN (6-23) mg/dl Creatinine (0.6-1.4) mg/dl POC Creatinine 1.2 (0.6-1.3) mg/dl Est Cr Clr Drug Dosing Est GFR ( Amer) ml/min Est GFR (Non-Af Amer) ml/min BUN/Creatinine Ratio (10-20) Glucose (70-99(Fasting)) mg/dl POC Glucose (other) 241 H (70-99) mg/dl Calcium (8.5-10.1) mg/dl POC Ioniz Calcium Libby 1.19 (1.12-1.32) mmol/l Magnesium (1.7-2.4) mg/dl Total Bilirubin (0.2-1.0) mg/dl AST (13-39) U/L ALT (7-52) U/L Alkaline Phosphatase (34-104) U/L Troponin I High Sens (0-20) pg/ml Total Protein (6.0-8.3) gm/dl Albumin (3.4-5.0) gm/dl Globulin (2.5-4.0) gm/dl Albumin/Globulin Ratio (0.9-2) Urine Color Yellow Urine Appearance Clear (Clear) Urine pH 6.0 (4.5-7.5) Ur Specific Terrell 1.040 H (1.000-1.030) Urine Protein 1+ H (Negative) Urine Glucose (UA) 2+ H (Negative) Urine Ketones Negative (Negative) Urine Blood Trace H (Negative) Urine Nitrite Negative (Negative) Urine Bilirubin Negative (Negative) Urine Urobilinogen Negative (Negative) Ur Leukocyte Esterase Negative (Negative) Urine WBC (Auto) 1-5 (0-5) /hpf Urine RBC (Auto) 0-4 (0-4) /hpf U Hyaline Cast (Auto) 1-5 (0-5) /lpf U Epithel Cells (Auto) 5-10 H (0-5) /lpf Urine Bacteria (Auto) Negative (Negative) SARS-CoV-2 (PCR) NEGATIVE (Negative) Influenza Type A (PCR) Negative (Neg) Influenza Type B (PCR) Negative (Neg) RSV (RT-PCR) Negative (Neg) Administered Medications Discontinued Medications Atorvastatin Calcium (Atorvastatin 10 Mg Tab) 10 mg PO QAM [facility] Stop: 08/06/22 08:59 Last Admin: 07/08/22 08:22 Dose: 10 mg Documented By: Admin: 07/07/22 08:53 Dose: 10 mg Documented By: ZENON Fentanyl Citrate (Fentanyl Citrate 100 Mcg/2 Ml Vial) 25 mcg IV NOW STA Stop: 07/06/22 21:33 Last Admin: 07/06/22 21:43 Dose: 25 mcg Documented By: DOLLY Fluticasone/Vilanterol (Fluticasone/Vilanterol 200/25mcg 14 Puffs/Inhaler) 1 puffs INH DAILY [facility] Stop: 08/06/22 08:59 Last Admin: 07/08/22 08:22 Dose: 1 puffs Documented By: Admin: 07/07/22 08:53 Dose: 1 puffs Documented By: ZENON Gadobutrol (Gadobutrol 65ml Vial) 8 ml IV ONCE ONE Stop: 07/07/22 13:44 Last Admin: 07/07/22 13:43 Dose: 8 ml Documented By: MLKei Sodium Chloride (Nss 1000ml) 1,000 mls @ 80 mls/hr IV .[id number] [facility] Stop: 08/06/22 02:51 Last Admin: 07/07/22 18:25 Dose: Not Given Documented By: Infusion: 07/07/22 17:09 Dose: 0 mls/hr Documented By: Admin: 07/07/22 03:50 Dose: 80 mls/hr Documented By: CAMILLE Piperacillin Sod/Tazobactam (Sod 3.375 gm/ Dextrose) 115 mls @ 28.75 mls/hr IV Q8H [facility]; Protocol Stop: 07/09/22 11:59 Last Admin: 07/08/22 12:04 Dose: 28.8 mls/hr Documented By: Infusion: 07/08/22 08:17 Dose: 0 mls/hr Documented By: Admin: 07/08/22 04:02 Dose: 28.8 mls/hr Documented By: Infusion: 07/08/22 00:19 Dose: 0 mls/hr Documented By: Admin: 07/07/22 20:19 Dose: 28.8 mls/hr Documented By: Infusion: 07/07/22 18:23 Dose: 0 mls/hr Documented By: Admin: 07/07/22 14:04 Dose: 28.8 mls/hr Documented By: ZENON Piperacillin Sod/Tazobactam (Sod 3.375 gm/ Dextrose) 115 mls @ 230 mls/hr IV NOW ONE; Protocol Stop: 07/07/22 07:29 Last Infusion: 07/07/22 08:37 Dose: 0 mls/hr Documented By: Admin: 07/07/22 07:38 Dose: 230 mls/hr Documented By: ZENON Insulin Aspart (Insulin Aspart Per Unit) 0 units SC Q6 [facility] Stop: 08/06/22 02:59 Last Admin: 07/07/22 12:39 Dose: Not Given Documented By: Admin: 07/07/22 06:14 Dose: Not Given Documented By: Admin: 07/07/22 03:54 Dose: 1 units Documented By: CAMILLE Co-signed By: LORNA Insulin Aspart (Insulin Aspart Per Unit) 0 units SC ACHS [facility] Stop: 08/06/22 16:29 Last Admin: 07/08/22 12:01 Dose: 7 units Documented By: ZENON Co-signed By: RENAY Admin: 07/08/22 08:19 Dose: 2 units Documented By: ZENON Co-signed By: AMOR Admin: 07/07/22 20:19 Dose: Not Given Documented By: Admin: 07/07/22 17:04 Dose: 7 units Documented By: ZENON Co-signed By: RENAY Insulin Glargine (Lantus Per Unit Charge) 8 units SQ DAILY [facility] Stop: 08/06/22 08:59 Last Admin: 07/08/22 08:19 Dose: 8 units Documented By: ZENON Co-signed By: AMOR Admin: 07/07/22 08:10 Dose: 8 units Documented By: ZENON Co-signed By: RENAY Ioversol (Optiray 320 500ml) 105 ml IV ONCE ONE Stop: 07/06/22 20:51 Last Admin: 07/06/22 20:50 Dose: 105 ml Documented By: MCKAYLA Metoprolol Tartrate (Metoprolol Tartrate 50 Mg Tab) 50 mg PO BID [facility] Stop: 08/06/22 08:59 Last Admin: 07/08/22 08:20 Dose: 50 mg Documented By: Admin: 07/07/22 20:20 Dose: 50 mg Documented By: Admin: 07/07/22 08:53 Dose: 50 mg Documented By: ZENON Morphine Sulfate (Morphine Sulfate 2 Mg/Ml Carp) 2 mg IV NOW STA Stop: 07/06/22 22:46 Last Admin: 07/07/22 03:17 Dose: Not Given Documented By: CAMILLE Perflutren Lipid Microsphere (Perflutren Lipid Microsphere (Definity)) 2 ml IV ONCE ONE Stop: 07/07/22 07:31 Last Admin: 07/07/22 07:31 Dose: 2 ml Documented By: ARI Sennosides (Senna 8.6 Mg Tab) 8.6 mg PO QAM [facility] Stop: 08/06/22 08:59 Last Admin: 07/08/22 08:22 Dose: 8.6 mg Documented By: Admin: 07/07/22 08:53 Dose: 8.6 mg Documented By: ZENON Vitamin D (Cholecalciferol 1,000 Units 25 Mcg Tab) 1,000 units PO QPM [facility] Stop: 08/06/22 20:59 Last Admin: 07/07/22 20:20 Dose: 1,000 units Documented By: CAMILLE Warfarin Sodium (Warfarin Sod 5 Mg Tab) 5 mg PO DAILY@1600 [facility] Stop: 08/06/22 15:59 Last Admin: 07/07/22 17:08 Dose: 5 mg Documented By: ZENON Imaging Data Radiologist's Impression: Chest X-Ray 07/06/22 20:28 XR chest 1V portable CLINICAL HISTORY: AMS TECHNIQUE: Single frontal radiograph of the chest was obtained. Comparison: Comparison is made to chest radiograph 08/02/2020 FINDINGS: No lines and tubes are seen. Calcified aortic knob is seen. The lungs are clear. No evidence of pleural effusion or pneumothorax. IMPRESSION: No acute chest disease. ACT 112: Negative or not required by law. Electronically signed by: Phan Contreras M.D. 07/07/2022 9:[address] 07/06/22 20:28 CT angio neck with con, CT angio head w con, CT head/brain wo con CLINICAL HISTORY: neuro deficit, acute stroke suspected TECHNIQUE: Contiguous axial CT images of the head were acquired from the base of the skull to the vertex without intravenous contrast administration. CT angiography of the head and neck was performed following intravenous administration of iodinated contrast. Coronal and sagittal MIPS were obtained from the axial data set and were submitted for review. Automated dose lowering techniques and/or adjustment according to patient size were utilized for this examination. All measurements were calculated based on NASCET criteria. Comparison: Comparison is made to CTA head and neck 01/18/2021 FINDINGS: CT head: Areas of decreased attenuation are present in the periventricular and subcortical white matter bilaterally consistent with small vessel ischemic disease. Generalized cerebral atrophy with commensurate enlargement of the ventricles, sulci, and cisterns is also present. There is no acute intracranial hemorrhage or evidence of acute territorial infarction. No shift of the midline structures, mass effect, or extra-axial abnormalities are shown. Atherosclerot ic calcifications are present in the intracranial segments of the internal carotid arteries. A lacunar infarct is seen on the left. Prominent sinus disease is seen with thickening of the nasal christa and opacification of the left greater than right paranasal sinuses. Subcentimeter lymph nodes are seen in the mediastinum. CTA Neck: A 3 vessel aortic arch is shown. Atherosclerotic plaque is present in the aortic arch and at the origin of the great vessels. There is mild calcified atherosclerotic plaque at the bifurcation of the bilateral common carotid arteries without hemodynamically significant flow stenosis. There is no dissection present. The right vertebral artery is dominant. CTA Head: The anterior and posterior cerebral circulations are patent. The right vertebral artery terminates as PICA. There is atherosclerotic calcification of the bilateral cavernous carotid segments without hemodynamically significant stenosis. Partial origin of the left MD OPHTHALMOLOGIST noted. IMPRESSION: 1. No acute intracranial hemorrhage, evidence of acute territorial infarction, or other acute intracranial disease process. 2. No occlusion, hemodynamically significant stenosis, or dissection in the major cervical arteries. Atherosclerotic disease is seen. 3. No occlusion, hemodynamically significant stenosis, aneurysm, dissection, or arteriovenous malformation in the major intracranial arteries. Assessment of stenosis of the internal carotid arteries is based on NASCET criteria. ACT 112: Negative or not required by law. Electronically signed by: Phan Contreras M.D. 07/07/2022 7:42 AM Head CTA 07/06/22 20:28 CT angio neck with con, CT angio head w con, CT head/brain wo con CLINICAL HISTORY: neuro deficit, acute stroke suspected TECHNIQUE: Contiguous axial CT images of the head were acquired from the base of the skull to the vertex without intravenous contrast administration. CT angiography of the head and neck was performed following intravenous administration of iodinated contrast. Coronal and sagittal MIPS were obtained from the axial data set and were submitted for review. Automated dose lowering techniques and/or adjustment according to patient size were utilized for this examination. All measurements were calculated based on NASCET criteria. Comparison: Comparison is made to CTA head and neck 01/18/2021 FINDINGS: CT head: Areas of decreased attenuation are present in the periventricular and subcortical white matter bilaterally consistent with small vessel ischemic disease. Generalized cerebral atrophy with commensurate enlargement of the ventricles, sulci, and cisterns is also present. There is no acute intracranial hemorrhage or evidence of acute territorial infarction. No shift of the midline structures, mass effect, or extra-axial abnormalities are shown. Atherosclerotic calcifications are present in the intracranial segments of the internal carotid arteries. A lacunar infarct is seen on the left. Prominent sinus disease is seen with thickening of the nasal christa and opacification of the left greater than right paranasal sinuses. Subcentimeter lymph nodes are seen in the mediastinum. CTA Neck: A 3 vessel aortic arch is shown. Atherosclerotic plaque is present in the aortic arch and at the origin of the great vessels. There is mild calcified atherosclerotic plaque at the bifurcation of the bilateral common carotid arteries without hemodynamically significant flow stenosis. There is no dissection present. The right vertebral artery is dominant. CTA Head: The anterior and posterior cerebral circulations are patent. The right vertebral artery terminates as PICA. There is atherosclerotic calcification of the bilateral cavernous carotid segments without hemodynamically significant stenosis. Partial origin of the left MD OPHTHALMOLOGIST noted. IMPRESSION: 1. No acute intracranial hemorrhage, evidence of acute territorial infarction, or other acute intracranial disease process. 2. No occlusion, hemodynamically significant stenosis, or dissection in the major cervical arteries. Atherosclerotic disease is seen. 3. No occlusion, hemodynamically significant stenosis, aneurysm, dissection, or arteriovenous malformation in the major intracranial arteries. Assessment of stenosis of the internal carotid arteries is based on NASCET criteria. ACT 112: Negative or not required by law. Electronically signed by: Phan Contreras M.D. 07/07/2022 7:42 AM Neck CTA 07/06/22 20:28 CT angio neck with con, CT angio head w con, CT head/brain wo con CLINICAL HISTORY: neuro deficit, acute stroke suspected TECHNIQUE: Contiguous axial CT images of the head were acquired from the base of the skull to the vertex without intravenous contrast administration. CT angiography of the head and neck was performed following intravenous administration of iodinated contrast. Coronal and sagittal MIPS were obtained from the axial data set and were submitted for review. Automated dose lowering techniques and/or adjustment according to patient size were utilized for this examination. All measurements were calculated based on NASCET criteria. Comparison: Comparison is made to CTA head and neck 01/18/2021 FINDINGS: CT head: Areas of decreased attenuation are present in the periventricular and subcortical white matter bilaterally consistent with small vessel ischemic disease. Generalized cerebral atrophy with commensurate enlargement of the ventricles, sulci, and cisterns is also present. There is no acute intracranial hemorrhage or evidence of acute territorial infarction. No shift of the midline structures, mass effect, or extra-axial abnormalities are shown. Atherosclerotic calcifications are present in the intracranial segments of the internal carotid arteries. A lacunar infarct is seen on the left. Prominent sinus disease is seen with thickening of the nasal christa and opacification of the left greater than right paranasal sinuses. Subcentimeter lymph nodes are seen in the mediastinum. CTA Neck: A 3 vessel aortic arch is shown. Atherosclerotic plaque is present in the aortic arch and at the origin of the great vessels. There is mild calcified atherosclerotic plaque at the bifurcation of the bilateral common carotid arteries without hemodynamically significant flow stenosis. There is no dissection present. The right vertebral artery is dominant. CTA Head: The anterior and posterior cerebral circulations are patent. The right vertebral artery terminates as PICA. There is atherosclerotic calcification of the bilateral cavernous carotid segments without hemodynamically significant stenosis. Partial origin of the left MD OPHTHALMOLOGIST noted. IMPRESSION: 1. No acute intracranial hemorrhage, evidence of acute territorial infarction, or other acute intracranial disease process. 2. No occlusion, hemodynamically significant stenosis, or dissection in the major cervical arteries. Atherosclerotic disease is seen. 3. No occlusion, hemodynamically significant stenosis, aneurysm, dissection, or arteriovenous malformation in the major intracranial arteries. Assessment of stenosis of the internal carotid arteries is based on NASCET criteria. ACT 112: Negative or not required by law. Electronically signed by: Phan Contreras M.D. 07/07/2022 7:42 AM Discharge Plan Visit Data Chief Complaint: Altered Mental Status Stated Complaint: ALTERED ED Provider: Michael Chance Discharge Problem: Altered mental status, History of cardioembolic cerebrovascular accident (CVA) Patient Disposition: Admitted As Inpatient Discharge Instructions Interventions: ED Discharge Assessment Last Done: 07/07/22 00:36
[2022-07-06] MEDS ORDERED: OPTIRAY 320 500ml IV ONE (20:50)
[2022-07-06 20:56] LABS: iSTAT Creatinine 1.2 mg/dl (0.6-1.3); iSTAT Ionized Calcium 1.19 mmol/l (1.12-1.32); iSTAT Potassium 4.2 mmol/L (3.3-5.0)
[2022-07-06 20:59] LABS: Basophils # (auto) 0.04 K/uL (0-0.2); Basophils % (auto) 0.4 %; Eosinophils # (auto) 0.42 K/uL (0-0.50); Eosinophils % (auto) 4.1 %; Hematocrit (blood only) 42.8 % (42.0-52.0); Hemoglobin 14.2 g/dl (14.0-18.0); Immature Granulocytes # (auto) 0.03 K/uL (0.01-0.20); Immature Granulocytes % (auto) 0.3 %; Lymphocytes # (auto) 2.58 K/uL (1.2-3.4); Lymphocytes % (auto) 25.3 %; Mean Corpuscular Hemoglobin 27.9 pg (25.0-34.0); Mean Corpuscular Hgb Conc 33.2 g/dL (32.0-36.0); Mean Corpuscular Volume 84.1 fL (80.0-100.0); Mean Platelet Volume 10.3 fL (9.4-12.4); Monocytes # (auto) 0.81 K/uL (0.11-0.59); Monocytes % (auto) 7.9 %; Neutrophils # (auto) 6.33 K/uL (1.40-6.50); Platelet Count 295 K/uL (130-400); RDW Coefficient of Variation 14.4 % (11.5-14.5); RDW Standard Deviation 43.9 fL (36.4-46.3); Red Blood Count 5.09 M/uL (4.70-6.10); White Blood Count 10.21 K/ul (4.8-10.8)
[2022-07-06 21:12] LABS: Alanine Aminotransferase 13 U/L (7-52); Albumin Globulin Ratio 1.5 (0.9-2); Albumin Level 4.1 gm/dl (3.4-5.0); Alkaline Phosphatase 53 U/L (34-104); Anion Gap 5 (3-11); Aspartate Aminotransferase 11 U/L (13-39); BUN Creatinine Ratio 15.8 (10-20); Blood Urea Nitrogen 19 mg/dl (6-23); Calcium 9.1 mg/dl (8.5-10.1); Carbon Dioxide 30 mmol/L (21-32); Chloride 106 mmol/L (98-107); Est GFR (African American) 63.1 ml/min; Est GFR (Non-African American) 54.4 ml/min; Globulin 2.8 gm/dl (2.5-4.0); Glucose 246 mg/dl (70-99(Fasting)); Magnesium 1.9 mg/dl (1.7-2.4); Potassium 4.3 mmol/L (3.5-5.1); Sodium 141 mmol/L (136-145); Total Protein 6.9 gm/dl (6.0-8.3)
[2022-07-06 21:18] LABS: Troponin I High Sensitivity 8.3 pg/ml (0-20)
[2022-07-06 21:27] LABS: INR 2.6 (0.9-1.1); Partial Thromboplastin Ratio 1.5; Partial Thromboplastin Time 40.2 Seconds (21.0-31.0); Prothrombin Time 26.2 Seconds (9.0-12.0)
[2022-07-06] MEDS ORDERED: fentaNYL citrate 100 MCG/2 ML VIAL IV STA (21:32)
[2022-07-06 21:47] LABS: Influenza A virus by PCR Negative (Neg); Influenza B virus by PCR Negative (Neg); RSV by PCR Negative (Neg); SARS CoV2 RNA(COVID-19) Ceph NEGATIVE (Negative)
[2022-07-06 22:14] LABS: Appearance Urine Clear (Clear); Bacteria Urine Automated Negative (Negative); Bilirubin Urine Negative (Negative); Blood Urine Trace (Negative); Color Urine Yellow; Glucose Urine UA 2+ (Negative); Ketones Urine Negative (Negative); Leukocyte Esterase Urine Negative (Negative); Nitrite Urine Negative (Negative); Protein Urine 1+ (Negative); RBC Urine Automated 0-4 /hpf (0-4); Urobilinogen Urine Negative (Negative)
[2022-07-06] MEDS ORDERED: MoRPHine SULFATE 2 MG/ML CARP IV STA (22:45)
[2022-07-07 00:19] LABS: Base Excess ABG 1.1 mEq/L (-9-1.8); HCO3 ABG 23 mmol/L (19-24); Oxygen Saturation ABG > 100.0 % (90-95); PCO2 ABG 28 mmHg (35-46); PO2 ABG 149 mmHg (80-95)
[2022-07-07 00:22] LABS: Allen Test Pos (Pos)
[2022-07-07 00:26] LABS: pH ABG 7.52 (7.35-7.45)
--- NOTE | 2022-07-07 01:06 | History and Physical Report ---
DATE OF ADMISSION: 07/06/2022. CHIEF COMPLAINT: Altered mental status. HISTORY OF PRESENT ILLNESS: This is an 86-year-old male with past medical history significant for type 2 diabetes; paroxysmal atrial fibrillation, on Coumadin; history of CVA; COPD; hypertension, who lives at [facility]. He lives alone. Daughter checks on him every couple of days. 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 As per daughter, he cannot use his right hand like he cannot write and cannot open the doors, but otherwise he can ambulate okay without any support. He can eat and swallow regular food. He has some dysarthria, but it is not terribly bad. Sometimes difficult to understand him, but most of the times he speaks okay and he was taking care of himself at the [facility]. It seems today he was confused. He was wandering in the halls and he was brought in here. Initial workup with a CTA of the head and neck unremarkable. His labs are okay. Urinalysis okay, afebrile, saturating okay on room air. INR is 2.6, on Coumadin. COVID is negative. Flu is negative. RSV is negative. The patient is somewhat restless, trying to speak, but could not understand him. He is able to move his extremities, alert and awake, but not obeying commands. ALLERGIES: No known drug allergies. PAST MEDICAL HISTORY: As mentioned above. PAST SURGICAL HISTORY: History of abdominal surgery for removal of stomach cancer mass, history of appendectomy, bilateral cataract extraction, EGD, gastric restrictive surgery, history of nasal polypectomy, prostate surgery, tooth extraction, history of PEG tube placement. MEDICATIONS: The patient seems to be on albuterol 2.5 inhalation q.i.d. p.r.n., albuterol p.r.n., amlodipine 10 mg p.o. a.m., atorvastatin 10 mg p.o. a.m., vitamin D 1000 units p.o. a.m., Colace 100 mg p.o. a.m., fluticasone 250 mcg/salmeterol 50 mcg 1 inhalation b.i.d., guaifenesin 600 mg p.o. a.m., insulin sliding scale Lantus 70 units subcutaneous at bedtime, metoprolol tartrate 50 mg p.o. b.i.d., Senokot 8.6 mg p.o. a.m., warfarin 5 mg p.o. daily. FAMILY HISTORY: Significant for diabetes. SOCIAL HISTORY: Currently living at senior apartments. No smoking history. No alcohol use. No substance abuse. REVIEW OF SYSTEMS: Unobtainable at this time. PHYSICAL EXAMINATION: GENERAL: The patient is alert and awake, somewhat restless, not answering any questions. Speech is not clear. VITAL SIGNS: Temperature 37, pulse 105, respiratory rate 20, blood pressure 158/93, oxygen 95% on room air. HEENT: Pupils equal, round and reactive to light. Oral mucosa dry. NECK: No JVD. No neck masses. CARDIOVASCULAR: S1 and S2 heard. Regular rate and rhythm. No murmur, no gallop. RESPIRATORY SYSTEM: Normal AP diameter. No accessory muscle use. No wheezing, no crackles. ABDOMEN: Soft, bowel sounds present, nontender, no distention. CENTRAL NERVOUS SYSTEM: Alert and awake, but not oriented. Speech is not clear. No obvious facial droop. Not obeying commands, but restless and was trying to get up from the bed and able to move his extremities. EXTREMITIES: No edema, no erythema. LABORATORY DATA: WBC 10.2, hemoglobin 14.2, hematocrit 42.8, platelets 295. PT 26.9, INR 2.6, APTT 40.2. Sodium 141, potassium 4.3, chloride 106, bicarbonate 30, BUN 19, creatinine 1.2, serum glucose 246, calcium 9.1, magnesium 1.9, total bilirubin 1, AST 11, ALT 13, alkaline phosphatase 53. Troponin I high sensitivity 8.3. Urinalysis, +1 protein, +2 glucose. SARS-CoV-2 PCR negative, influenza A and B PCR negative, RSV PCR negative. IMAGING DATA: CTA of the head and neck, preliminary report, CTA neck, no severe stenosis, occlusion or dissection noted in the bilateral carotid and vertebral arteries. CTA of the head, preliminary report, calcified atherosclerotic disease involving the cavernous portion of the bilateral internal carotid arteries with less than 50% diameter stenosis, otherwise unremarkable [place] with no stenosis, aneurysm or occlusion seen. CT of the head, preliminary report,, no evidence of acute cortical stroke. Periventricular small vessel ischemic change, [id number] generalized brain atrophy, possible chronic sinusitis. Chest x-ray, no acute findings. EKG: Sinus rhythm with first-degree AV block, poor quality at interpretation at the rate of 94. ST depression in lateral leads. ASSESSMENT AND PLAN: This is an 86-year-old male who presents with altered mental status. 1. Altered mental status: Etiology unclear. The patient has history of stroke in the past. Initial workup of stroke was unremarkable with CTA of the head and neck and CT of the head. Will do full stroke workup with MRI scan, echo. Neuro evaluation, speech evaluation in the a.m. Monitor for any delirium. There are no obvious signs of infection, will monitor.Will do eeg.NPO except meds for now. 2. History of diabetes: Will cut back on Lantus to 8 units daily and placed on insulin sliding scale. Follow the blood sugars. 3. History of paroxysmal atrial fibrillation: Will continue his metoprolol and also his Coumadin. INR is therapeutic. Will follow the PT/INR. 4. Hypertension: Will continue his metoprolol. Will hold the amlodipine for permissive hypertension for now until MRI scan is available and place him on IV hydralazine p.r.n. 5. Hyperlipidemia: On statin. 6. Chronic obstructive pulmonary disease: Continue his home inhalers for now. Will get an ABG. 7. History of aspiration pneumonia: . Will await speech evaluation. As per daughter, he is eating and drinking okay. 8. Deep venous thrombosis prophylaxis: On Coumadin. INR therapeutic. DISPOSITION: Closely monitor in tele floor. Level 1 full code as per my discussion with the daughter. PT/OT prior to discharge. Social service to help with discharge planning. Job ID: [id number] [facility]
[2022-07-07] MEDS ORDERED: hydrALAZINE HCL 20 MG/ML VIAL IV PRN (02:52)
[2022-07-07] MEDS ORDERED: ALBUTEROL HFA 8 GM INHALER INH PRN (02:52)
[2022-07-07] MEDS ORDERED: GLUCOSE 10 TAB/TUBE PO PRN (02:52)
[2022-07-07] MEDS ORDERED: ALBUTEROL 0.083% NEBU SOLN 3 ML VIAL INH PRN (02:52)
[2022-07-07] MEDS ORDERED: ACETAMINOPHEN 325 MG TAB PO PRN (02:52)
[2022-07-07] MEDS ORDERED: GLUCOSE 40% GEL 15 GM TUBE PO PRN (02:52)
[2022-07-07] MEDS ORDERED: NITROGLYCERIN SL 0.4 MG/TAB TAB SL PRN (02:52)
[2022-07-07] MEDS ORDERED: PHARMACIST DISCHARGE MED REC CONSULT PRN (02:52)
[2022-07-07] MEDS ORDERED: GLUCAGON FOR INJ 1 MG VIAL SQ PRN (02:52)
[2022-07-07] MEDS ORDERED: OLANZapine 10 MG/2.1 ML SDV IM PRN (02:52)
[2022-07-07] MEDS ORDERED: DEXTROSE 50% 50 ML SYRINGE IV PRN (02:52)
[2022-07-07] MEDS ORDERED: CARBOHYDRATES FOR HYPOGLYCEMIA PO PRN (02:52)
[2022-07-07] MEDS ORDERED: POLYETHYLENE (MIRALAX) 17 GM PACK PO PRN (02:52)
[2022-07-07] MEDS: SODIUM CHLORIDE 0.9% 1000ML 1,000 ML IV SCH ×2 (03:50→18:25)
[2022-07-07] MEDS: INSULIN ASPART PER UNIT SC SCH ×5 (03:54→20:19)
--- NOTE | 2022-07-07 06:27 | Communication Note ---
Date of Service: July 07, 2022 Daughter said she will get med list in the morning. Please verify home med list. Thank you
[2022-07-07 06:34] LABS: Basophils # (auto) 0.04 K/uL (0-0.2); Basophils % (auto) 0.3 %; Eosinophils # (auto) 0.13 K/uL (0-0.50); Eosinophils % (auto) 1.1 %; Hematocrit (blood only) 39.3 % (42.0-52.0); Hemoglobin 13.1 g/dl (14.0-18.0); Immature Granulocytes # (auto) 0.03 K/uL (0.01-0.20); Immature Granulocytes % (auto) 0.2 %; Lymphocytes # (auto) 2.02 K/uL (1.2-3.4); Lymphocytes % (auto) 16.5 %; Mean Corpuscular Hemoglobin 28.1 pg (25.0-34.0); Mean Corpuscular Hgb Conc 33.3 g/dL (32.0-36.0); Mean Corpuscular Volume 84.2 fL (80.0-100.0); Monocytes # (auto) 1.11 K/uL (0.11-0.59); Monocytes % (auto) 9.1 %; Neutrophils # (auto) 8.92 K/uL (1.40-6.50); Neutrophils % (auto) 72.8 %; Platelet Count 262 K/uL (130-400); RDW Coefficient of Variation 14.6 % (11.5-14.5); RDW Standard Deviation 44.5 fL (36.4-46.3); Red Blood Count 4.67 M/uL (4.70-6.10); White Blood Count 12.25 K/ul (4.8-10.8)
[2022-07-07 06:48] LABS: BUN Creatinine Ratio 18.1 (10-20); Calcium 8.8 mg/dl (8.5-10.1); Chol HDL Ratio 2.5 (0-5); Creatinine Clr Calc Pharmacy 58.2 ml/min; Est GFR (African American) 84.7 ml/min; Est GFR (Non-African American) 73.1 ml/min; Potassium 4.2 mmol/L (3.5-5.1)
--- NOTE | 2022-07-07 06:48 | Communication Note ---
Date of Service: July 07, 2022 Ordered empiric iv cefepime. will follow cultures. Thanks
[2022-07-07 06:55] LABS: Troponin I High Sensitivity 24.3 pg/ml (0-20)
[2022-07-07] MEDS ORDERED: PIPERACILLIN/TAZOBACTAM 3.375 GM (over 30 mins) IV ONE (07:00)
[2022-07-07 07:07] LABS: INR 2.7 (0.9-1.1); Prothrombin Time 26.8 Seconds (9.0-12.0)
[2022-07-07] MEDS ORDERED: PERFLUTREN LIPID MICROSPHERE (DEFINITY) IV ONE (07:30)
[2022-07-07 07:40] LABS: Estimated Average Glucose 197 mg/dl; Hemoglobin A1C 8.5 % (4.5-5.6)
--- NOTE | 2022-07-07 07:45 | CT Scan Report ---
CT angio neck with con, CT angio head w con, CT head/brain wo con CLINICAL HISTORY: neuro deficit, acute stroke suspected TECHNIQUE: Contiguous axial CT images of the head were acquired from the base of the skull to the anupama humaira without intravenous contrast administration. CT angiography of the head and neck was performed f ollowing intravenous administration of iodinated contrast. Coronal and sagittal MIPS were obtained fr om the axial data set and were submitted for review. Automated dose lowering techniques and/or adjus tment according to patient size were utilized for this examination. All measurements were calculated based on NASCET criteria. Comparison: Comparison is made to CTA head and neck 01/18/2021 FINDINGS: CT head: Areas of decreased attenuation are present in the periventricular and subcortical white [place] er bilaterally consistent with small vessel ischemic disease. Generalized cerebral atrophy with comme nsurate enlargement of the ventricles, sulci, and cisterns is also present. There is no acute intracr anial hemorrhage or evidence of acute territorial infarction. No shift of the midline structures, mas s effect, or extra-axial abnormalities are shown. Atherosclerotic calcifications are present in the intracranial segments of the internal carotid arteries. A lacunar infarct is seen on the left. Promin ent sinus disease is seen with thickening of the nasal christa and opacification of the left [place] right paranasal sinuses. Subcentimeter lymph nodes are seen in the mediastinum. CTA Neck: A 3 vessel aortic arch is shown. Atherosclerotic plaque is present in the aortic arch and at the origin of the great vessels. There is mild calcified atherosclerotic plaque at the bifurcatio n of the bilateral common carotid arteries without hemodynamically significant flow stenosis. There i s no dissection present. The right vertebral artery is dominant. CTA Head: The anterior and posterior cerebral circulations are patent. The right vertebral artery te rminates as PICA. There is atherosclerotic calcification of the bilateral cavernous carotid segments without hemodynamically significant stenosis. Partial origin of the left BUILDING MATERIALS SALES ATTENDANT noted. IMPRESSION: 1. No acute intracranial hemorrhage, evidence of acute territorial infarction, or other acute intrac ranial disease process. 2. No occlusion, hemodynamically significant stenosis, or dissection in the major cervical arteries. Atherosclerotic disease is seen. 3. No occlusion, hemodynamically significant stenosis, aneurysm, dissection, or arteriovenous malfor mation in the major intracranial arteries. Assessment of stenosis of the internal carotid arteries is based on NASCET criteria. ACT 112: Negative or not required by law. Electronically signed by: Phan Contreras M.D. 07/07/2022 7:42 AM
[2022-07-07] MEDS: LANTUS PER UNIT CHARGE SQ SCH (08:10)
[2022-07-07] MEDS: FLUTICASONE/VILANTEROL 200/25MCG 14 PUFFS/INHALER INH SCH (08:53)
[2022-07-07] MEDS: SENNA 8.6 MG TAB PO SCH (08:53)
[2022-07-07] MEDS: ATORVASTATIN 10 MG TAB PO SCH (08:53)
[2022-07-07] MEDS: METOPROLOL TARTRATE 50 MG TAB PO SCH ×2 (08:53→20:20)
[2022-07-07] MEDS ORDERED: CEFEPIME 2,000 MG in SYRINGE 0 ML IV SCH (09:00)
--- NOTE | 2022-07-07 09:55 | XRay Report ---
XR chest 1V portable CLINICAL HISTORY: AMS TECHNIQUE: Single frontal radiograph of the chest was obtained. Comparison: Comparison is made to chest radiograph 08/02/2020 FINDINGS: No lines and tubes are seen. Calcified aortic knob is seen. The lungs are clear. No evidence of pleur al effusion or pneumothorax. IMPRESSION: No acute chest disease. ACT 112: Negative or not required by law. Electronically signed by: Phan Contreras M.D. 07/07/2022 9:54 AM
--- NOTE | 2022-07-07 11:09 | Neurology Consultation ---
Date of Consultation July 07, 2022 Assessment & Plan (1) Confusion: Plan NEUROLOGY CONSULTATION Assessment & Plan: Impression: pt with brief confusion that appears to be now resolved and back to his baseline. he has baseline rt hemiparesis and severe dysarthria from his prior stroke. Not very suggestive of stroke at this point. Recommendations: -close work up for his elevated WBC. avoid dehydration and hypotension. if mri brain negative, no further stroke work up needed. supportive care as now. continue coumadin. not much else to offer from neurology. Dr. Marvin Huffman MD [facility] Neurology Chief Complaint: confusion History of Present Illness: HPI: pt this morning very much alert and trying to communicate but due to his prior stroke pt with severe aphasia. pt does not appears to be confused as reported yesterday. pt appears to be back to his baseline. CTA head/neck and CT head negative. chart reivewed. does have mild WBC elevation. Admission/Initial HPI documentation: This is an 86-year-old male with past medical history significant for type 2 diabetes; paroxysmal atrial fibrillation, on Coumadin; history of CVA; COPD; hypertension, who lives at [facility]. He lives alone. Daughter checks on him every couple of days. 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 As per daughter, he cannot use his right hand like he cannot write and cannot open the doors, but otherwise he can ambulate okay without any support. He can eat and swallow regular food. He has some dysarthria, but it is not terribly bad. Sometimes difficult to understand him, but most of the times he speaks okay and he was taking care of himself at the [facility]. It seems today he was confused. He was wandering in the halls and he was brought in here. Initial workup with a CTA of the head and neck unremarkable. His labs are okay. Urinalysis okay, afebrile, saturating okay on room air. INR is 2.6, on Coumadin. COVID is negative. Flu is negative. RSV is negative. The patient is somewhat restless, trying to speak, but could not understand him. He is able to move his extremities, alert and awake, but not obeying commands. Past Medical History: See chart Meds: See chart I personally reviewed all of the medications Social & Family History: See chart Review of Systems: Per initial HPI on admission. Physical Exam: GEN: NAD HEENT: Normocephalic Neuro: Mental status:Alert, follows command at times. he tries to speak and does interact. marked dysarthria from his prior stroke. Cranial Nerves:II-XII intact grossly Motor:rt hemiparesis from his prior stroke. left upper and lower grossly intact. Coordination:Intact left arm. Reflexes: down going toes sheila Sensation: Intact x 4 extremities to touch Gait: able to stand briefly and take few steps. Chart reviewed I have spent more than 50% educating patient about potential diagnosis and neurological evaluation and coordinating care with patient's treatment team. Total time spent (including chart review and coordination of care): 80 min (this includes chart review). History of Present Illness Attending Physician: Dennise Bowen MD Allergies Allergy/AdvReac Type Severity Reaction Status Date / Time No Known Allergies Allergy Verified 07/06/22 22:17 Home Medications Medication Instructions Recorded Confirmed Type insulin aspart U-100 100 unit/mL See Rx Instructions .Route .COMPLEX 05/30/19 07/06/22 History subcutaneous cartridge (Novolog PenFill U-100 Insulin aspart) cholecalciferol (vitamin D3) 25 1,000 unit PO QPM 08/04/19 07/06/22 History mcg (1,000 unit) tablet (Vitamin D3) docusate sodium 100 mg capsule 100 mg PO QAM 09/11/19 07/06/22 History (Colace) albuterol sulfate 2.5 mg/3 mL 2.5 mg inhalation QID PRN 10/23/19 07/06/22 History (0.083 %) solution for nebulization Shortness Of Breath albuterol sulfate 90 mcg/actuation 1 puff inhalation QID PRN 10/23/19 07/06/22 History aerosol inhaler Shortness Of Breath atorvastatin 20 mg tablet 10 mg PO QAM 11/14/19 07/06/22 History insulin glargine 100 unit/mL (3 17 unit SC HS 12/04/19 07/06/22 History mL) subcutaneous pen (Lantus Solostar U-100 Insulin) guaifenesin 600 mg tablet, 600 mg PO QAM 10/11/20 07/06/22 History extended release 12 hr (Mucinex) sennosides 8.6 mg tablet 8.6 mg PO QAM 10/11/20 07/06/22 History amlodipine 10 mg tablet 10 mg PO QAM 01/24/21 07/06/22 History metoprolol tartrate 50 mg tablet 50 mg PO BID #60 tabs 04/29/21 07/06/22 Rx warfarin 5 mg tablet 5 mg PO DAILY #30 tabs 04/29/21 07/06/22 Rx fluticasone 250 mcg-salmeterol 50 1 inh inhalation BID #90 puffs 10/10/21 07/06/22 Rx mcg/dose blistr powdr for inhalation (Wixela Inhub) Patient History Medical History Acute and chronic respiratory failure with hypoxia Acute exacerbation of chronic obstructive pulmonary disease Asthma inhaler/nebulizer prn Atrial fibrillation on xarelto BPH (benign prostatic hyperplasia) Chronic pansinusitis COPD (chronic obstructive pulmonary disease) Dysarthria 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 Jerri Hayden @ [facility] Transient ischemic attack (TIA) 07/2018--no lasting deficits from that mini stroke Surgical History History of abdominal surgery removal of stomach cancer mass History of appendectomy History of bilateral cataract extraction History of esophagogastroduodenoscopy (EGD) History of gastric restrictive surgery History of nasal polypectomy History of prostate surgery History of tooth extraction most teeth removed Status post insertion of percutaneous endoscopic gastrostomy (PEG) tube Family History Brother Family history of diabetes mellitus Other No family history of adverse response to anesthesia No family history of bleeding disorder Social History Smoking Status: Unknown if ever smoked Second Hand Exposure: No; Hx Alcohol Use: No Hx Substance Use: No Preferred Language: [place] Communication Ability: Effective 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 Beliefs That Will Affect Care: None marital status: Current Living Situation: Alone Current Living Situation Comment: [place] current occupational status: retired Feels Safe at Home: Yes Assistive Devices: None Results & Data ([facility]) Vital Signs (Past 12 Hours) Vital Signs Temp Pulse Pulse Resp BP BP Pulse Ox 07/07/22 07:54 37.2 C 81 18 134/97 96 07/07/22 02:52 36.8 C 120 H 18 135/77 96 07/07/22 03:30 36.8 C 120 H 135/77 96 07/07/22 02:09 103 H 07/07/22 00:36 114 H 18 103/69 95 07/06/22 23:44 113 H O2 Del Method 07/07/22 07:54 Room Air 07/07/22 02:52 Room Air 07/07/22 03:30 Room Air 07/07/22 02:09 07/07/22 00:36 Room Air 07/06/22 23:44
[2022-07-07] MEDS ORDERED: GADOBUTROL 65ML VIAL IV ONE (13:43)
[2022-07-07] MEDS: PIPERACILLIN/TAZOBACTAM 3.375 GM in DEXTROSE 5% 100 ML IV SCH ×2 (14:04→20:19)
--- NOTE | 2022-07-07 14:10 | Magnetic Resonance Report ---
MRI OF THE BRAIN COMBO CLINICAL HISTORY: Change in mental status. Stroke-like symptoms. COMPARISON STUDY: CT of the brain dated 07/06/2022. TECHNIQUE: MRI of the brain was performed utilizing various T1 and T2-weighted sequences in the axial , sagittal, and coronal planes. Contrast-enhanced sequences were acquired following the administratio n of 8 cc of Gadavist. FINDINGS: Brain parenchyma: There is age-related change noting advanced confluent subcortical and periventricul ar microangiopathic disease. There is no hemorrhage or mass effect. There is no restricted diffusion to suggest acute ischemia. No enhancing mass lesion is identified on the postcontrast images. Frias-wh ite matter differentiation is preserved. No extra-axial fluid collection is seen. The cerebellar tons ils are normal in configuration. Mineralization is noted in the basal ganglia. Chronic lacunar infarc ts are noted in the right caudate head in the left basal ganglia. Ventricles, sulci, and cisterns: Prominent secondary to uncovertebral change. Pituitary and sella: Unremarkable. Intracranial vasculature: Normal flow voids are maintained at the skull base. Orbits: The bony orbits are grossly intact. Orbital contents are normal in appearance noting bilatera l ocular lens implants. Sinuses and mastoids: There is subtotal opacification of the maxillary and ethmoid sinuses. Moderate mucosal thickening is noted in the frontal sinuses and there is trace mucosal thickening in the sphen oid sinuses. A right mastoid effusion is observed. Calvarium: Unremarkable. Cervical cord: Partially visualized cervical spinal cord is normal in morphology and signal intensity . IMPRESSION: 1. No acute intracranial abnormality. 2. Pansinus disease as above. ACT 112: Negative or not required by law. Electronically signed by: Mir Cantu M.D. 07/07/2022 2:08 PM
[2022-07-07] MEDS ORDERED: WARFARIN SOD 5 MG TAB PO SCH (16:00)
--- NOTE | 2022-07-07 16:46 | Hospitalist Progress Note ---
Date of Service July 07, 2022 Assessment & Plan (1) Confusion: Plan: Present on admission with confusion Need to rule out acute CVA versus infectious etiology CT head showed no acute intracranial abnormality CTA head and neck show no occlusion, hemodynamically significant stenosis, or dissection in the major cervical arteries. MRI head showed No acute intracranial abnormality. ECHO showed left ventricular wall motion is normal. Ejection fraction 60 to 65%. No interatrial shunt noted. Neuro on board recommended no further stroke work-up since MRIs brain negative Continue P/OT eval Speech on board Continue statin and warfarin Elevated WBC Possible reactive Seems to be chronic because reviewed previous admission show WBC elevated UA showed no evidence for UTI Chest x-ray showed no acute disease Currently on IV cefepime and Zosyn We will follow-up blood culture We will check procalcitonin in a.m. History of CVA (cerebral vascular accident): CVA with residual dysarthria/dysphagia and right hand weakness, Had peg tube and was since removed in 10/2019 without reported signs of aspiration. Continue Coumadin, atorvastatin INR 2.7 today Stable Diabetes mellitus, type 2: Most recent hemoglobin A1c 8.5 on 07/07/21 Take Lantus 17 units at home On Lantus and insulin sliding scales while inpatient Continue monitor blood sugar HTN (hypertension): BP stable Continue amlodipine, metoprolol tartrate DVT Prophylaxis -On Coumadin Full Code Disposition Possible discharge tomorrow if medically stable Admission and Anticipated Discharge Date Admission Date: July 06, 2022 Subjective Patient was seen and evaluated for follow-up of confusion Lying in bed with no acute distress He feels annoyed when I came to the room because he wants to rest He saturated well on room air Denies any chest pain, palpitation, dizziness Review of Systems Review of Systems: All systems reviewed & are unremarkable except as noted in Subjective Physical Exam Physical Exam: General- No acute distress Head- atraumatic Eyes- PERRL, EOMI, ENT- oropharynx clear Neck- supple, no JVD Lungs- clear to auscultation Heart- regular rhythm; no murmur Abdomen- normal bowel sounds, soft, nontender Extremities- no calf tenderness Neuro- alert, awake; PERRL, EOMI; no facial palsy; speech is not clear ( dysarthria), +RT hemiparesis, moves extremities, follow commands Skin- warm & dry Results & Data Results & Data ([facility]) Vital Signs (Past 12 Hours) Vital Signs Temp Pulse Resp BP Pulse Ox O2 Del Method 07/07/22 15:42 36.7 C 67 18 153/76 H 97 Room Air 07/07/22 08:00 Room Air 07/07/22 12:05 36.6 C 58 L 20 128/70 96 Room Air 07/07/22 07:54 37.2 C 81 18 134/97 96 Room Air
[2022-07-07] MEDS ORDERED: CHOLECALCIFEROL 1,000 UNITS 25 MCG TAB PO SCH (21:00)
--- NOTE | 2022-07-07 22:27 | Electrocardiogram Report ---
Test Reason : Blood Pressure : / mmHG Vent. Rate : 094 BPM Atrial Rate : 094 BPM P-R Int : 294 ms QRS Dur : 084 ms QT Int : 400 ms P-R-T Axes : 093 -05 056 degrees QTc Int : 501 ms Poor data quality, interpretation may be adversely affected Sinus rhythm with 1st degree A-V block Prolonged QT Possible Inferior infarct , age undetermined Cannot rule out Anterior infarct (cited on or before 04-MAY-2021) Abnormal ECG When compared with ECG of 04-MAY-2021 13:24, QT has lengthened Confirmed by Jossue Martinez ([id number]) on 07/07/2022 10:26:56 PM Referred By: REFERRED SELF Confirmed By:Reji Martinez
[2022-07-08] MEDS: PIPERACILLIN/TAZOBACTAM 3.375 GM in DEXTROSE 5% 100 ML IV SCH ×2 (04:02→12:04)
[2022-07-08 07:50] LABS: Basophils # (auto) 0.06 K/uL (0-0.2); Basophils % (auto) 0.7 %; Eosinophils # (auto) 0.44 K/uL (0-0.50); Eosinophils % (auto) 5.3 %; Hematocrit (blood only) 38.7 % (42.0-52.0); Hemoglobin 12.8 g/dl (14.0-18.0); Immature Granulocytes # (auto) 0.03 K/uL (0.01-0.20); Immature Granulocytes % (auto) 0.4 %; Lymphocytes # (auto) 2.65 K/uL (1.2-3.4); Lymphocytes % (auto) 31.6 %; Mean Corpuscular Hemoglobin 27.6 pg (25.0-34.0); Mean Corpuscular Hgb Conc 33.1 g/dL (32.0-36.0); Mean Corpuscular Volume 83.6 fL (80.0-100.0); Monocytes # (auto) 0.95 K/uL (0.11-0.59); Monocytes % (auto) 11.3 %; Neutrophils # (auto) 4.25 K/uL (1.40-6.50); Neutrophils % (auto) 50.7 %; Platelet Count 237 K/uL (130-400); RDW Coefficient of Variation 14.5 % (11.5-14.5); RDW Standard Deviation 43.8 fL (36.4-46.3); Red Blood Count 4.63 M/uL (4.70-6.10); White Blood Count 8.38 K/ul (4.8-10.8)
[2022-07-08 08:10] LABS: BUN Creatinine Ratio 13.9 (10-20); Calcium 8.4 mg/dl (8.5-10.1); Creatinine Clr Calc Pharmacy 50.7 ml/min; Est GFR (African American) 71.6 ml/min; Est GFR (Non-African American) 61.8 ml/min; Potassium 3.6 mmol/L (3.5-5.1)
[2022-07-08 08:13] LABS: INR 2.4 (0.9-1.1); Prothrombin Time 24.7 Seconds (9.0-12.0)
[2022-07-08] MEDS: INSULIN ASPART PER UNIT SC SCH ×2 (08:19→12:01)
[2022-07-08] MEDS: LANTUS PER UNIT CHARGE SQ SCH (08:19)
[2022-07-08] MEDS: METOPROLOL TARTRATE 50 MG TAB PO SCH (08:20)
[2022-07-08] MEDS: ATORVASTATIN 10 MG TAB PO SCH (08:22)
[2022-07-08] MEDS: FLUTICASONE/VILANTEROL 200/25MCG 14 PUFFS/INHALER INH SCH (08:22)
[2022-07-08] MEDS: SENNA 8.6 MG TAB PO SCH (08:22)
--- NOTE | 2022-07-08 14:07 | Discharge Summary ---
Date of Service July 08, 2022 Admission HPI Per Admitting Provider DATE OF ADMISSION: 07/06/2022. CHIEF COMPLAINT: Altered mental status. HISTORY OF PRESENT ILLNESS: This is an 86-year-old male with past medical history significant for type 2 diabetes; paroxysmal atrial fibrillation, on Coumadin; history of CVA; COPD; hypertension, who lives at [facility]. He lives alone. Daughter checks on him every couple of days. 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 As per daughter, he cannot use his right hand like he cannot write and cannot open the doors, but otherwise he can ambulate okay without any support. He can eat and swallow regular food. He has some dysarthria, but it is not terribly bad. Sometimes difficult to understand him, but most of the times he speaks okay and he was taking care of himself at the [facility]. It seems today he was confused. He was wandering in the halls and he was brought in here. Initial workup with a CTA of the head and neck unremarkable. His labs are okay. Urinalysis okay, afebrile, saturating okay on room air. INR is 2.6, on Coumadin. COVID is negative. Flu is negative. RSV is negative. The patient is somewhat restless, trying to speak, but could not understand him. He is able to move his extremities, alert and awake, but not obeying commands Admission Exam Per Admitting Provider GENERAL: The patient is alert and awake, somewhat restless, not answering any questions. Speech is not clear. VITAL SIGNS: Temperature 37, pulse 105, respiratory rate 20, blood pressure 158/93, oxygen 95% on room air. HEENT: Pupils equal, round and reactive to light. Oral mucosa dry. NECK: No JVD. No neck masses. CARDIOVASCULAR: S1 and S2 heard. Regular rate and rhythm. No murmur, no gallop. RESPIRATORY SYSTEM: Normal AP diameter. No accessory muscle use. No wheezing, no crackles. ABDOMEN: Soft, bowel sounds present, nontender, no distention. CENTRAL NERVOUS SYSTEM: Alert and awake, but not oriented. Speech is not clear. No obvious facial droop. Not obeying commands, but restless and was trying to get up from the bed and able to move his extremities. EXTREMITIES: No edema, no erythema. Principal Diagnosis Confusion Elevated WBC History of CVA (cerebral vascular accident) Diabetes mellitus, type 2 HTN (hypertension) Elevated Troponin Sinusitis Discharge Exam General- No acute distress Head- atraumatic Eyes- PERRL, EOMI, ENT- oropharynx clear Neck- supple, no JVD Lungs- clear to auscultation Heart- regular rhythm; no murmur Abdomen- normal bowel sounds, soft, nontender Extremities- no calf tenderness Neuro- alert, awake; PERRL, EOMI; no facial palsy; speech is not clear ( dysarthria), +RT hemiparesis, moves extremities, follow commands Skin- warm & dry Discharge Data Allergies Allergy/AdvReac Type Severity Reaction Status Date / Time No Known Allergies Allergy Verified 07/06/22 22:17 Consultations 07/06/22 21:54 ED Decision to Admit Stat 07/07/22 08:00 Consult Neurology Routine Ordered Studies 07/06/22 20:28 CT angio head w con Stat CT angio neck with con Stat CT head/brain wo con Stat 07/07/22 02:52 MR brain wo/w con Routine Laboratory Results WBC 8.38 K/ul (4.8-10.8) 07/08/22 07:01 RBC 4.63 M/uL (4.70-6.10) L 07/08/22 07:01 Hgb 12.8 g/dl (14.0-18.0) L 07/08/22 07:01 POC Hgb 15.0 g/dl (14.0-18.0) 07/06/22 20:43 Hct 38.7 % (42.0-52.0) L 07/08/22 07:01 POC Hct 44 % (42-52) 07/06/22 20:43 MCV 83.6 fL (80.0-100.0) 07/08/22 07:01 MCH 27.6 pg (25.0-34.0) 07/08/22 07:01 MCHC 33.1 g/dL (32.0-36.0) 07/08/22 07:01 RDW Std Deviation 43.8 fL (36.4-46.3) 07/08/22 07:01 RDW Coeff of Mainor 14.5 % (11.5-14.5) 07/08/22 07:01 Plt Count 237 K/uL (130-400) 07/08/22 07:01 MPV 10.0 fL (9.4-12.4) 07/08/22 07:01 Immature Gran % (Auto) 0.4 % 07/08/22 07:01 Neut % (Auto) 50.7 % 07/08/22 07:01 Lymph % (Auto) 31.6 % 07/08/22 07:01 [place] % (Auto) 11.3 % 07/08/22 07:01 Eos % (Auto) 5.3 % 07/08/22 07:01 Baso % (Auto) 0.7 % 07/08/22 07:01 Neut # (Auto) 4.25 K/uL (1.40-6.50) 07/08/22 07:01 Lymph # (Auto) 2.65 K/uL (1.2-3.4) 07/08/22 07:01 [place] # (Auto) 0.95 K/uL (0.11-0.59) H 07/08/22 07:01 Eos # (Auto) 0.44 K/uL (0-0.50) 07/08/22 07:01 Baso # (Auto) 0.06 K/uL (0-0.2) 07/08/22 07:01 Immature Gran # (Auto) 0.03 K/uL (0.01-0.20) 07/08/22 07:01 PT 24.7 Seconds (9.0-12.0) H 07/08/22 07:01 INR 2.4 (0.9-1.1) H 07/08/22 07:01 APTT 40.2 Seconds (21.0-31.0) H 07/06/22 20:34 PTT Ratio 1.5 07/06/22 20:34 ABG pH 7.52 (7.35-7.45) H* 07/07/22 00:04 ABG pCO2 28 mmHg (35-46) L 07/07/22 00:04 ABG pO2 149 mmHg (80-95) H 07/07/22 00:04 ABG HCO3 23 mmol/L (19-24) 07/07/22 00:04 ABG O2 Saturation > 100.0 % (90-95) H 07/07/22 00:04 ABG Base Excess 1.1 mEq/L (-9-1.8) 07/07/22 00:04 Zaid Test Pos (Pos) 07/07/22 00:04 Oxygen Given room air 07/07/22 00:04 POC Sodium 142 mmol/L (135-144) 07/06/22 20:43 Sodium 141 mmol/L (136-145) 07/08/22 07:01 POC Potassium 4.2 mmol/L (3.3-5.0) 07/06/22 20:43 Potassium 3.6 mmol/L (3.5-5.1) 07/08/22 07:01 POC Chloride 105 mmol/L (101-112) 07/06/22 20:43 Chloride 107 mmol/L (98-107) 07/08/22 07:01 Carbon Dioxide 31 mmol/L (21-32) 07/08/22 07:01 POC Total CO2 28 mmol/L (24-31) 07/06/22 20:43 Anion Gap 3 (3-11) 07/08/22 07:01 POC Anion Gap 15.0 mmol/L (16-25) L 07/06/22 20:43 POC BUN 19 mg/dl (7-18) H 07/06/22 20:43 BUN 15 mg/dl (6-23) 07/08/22 07:01 Creatinine 1.08 mg/dl (0.6-1.4) 07/08/22 07:01 POC Creatinine 1.2 mg/dl (0.6-1.3) 07/06/22 20:43 Est Cr Clr Drug Dosing 50.7 ml/min 07/08/22 07:01 Est GFR ( Amer) 71.6 ml/min 07/08/22 07:01 Est GFR (Non-Af Amer) 61.8 ml/min 07/08/22 07:01 BUN/Creatinine Ratio 13.9 (10-20) 07/08/22 07:01 Glucose 90 mg/dl (70-99(Fasting)) 07/08/22 07:01 POC Glucose 134 mg/dl (70-99) H 07/08/22 11:07 POC Glucose (other) 241 mg/dl (70-99) H 07/06/22 20:43 Estimat Average Glucose 197 mg/dl 07/07/22 06:09 Hemoglobin A1c 8.5 % (4.5-5.6) H 07/07/22 06:09 Calcium 8.4 mg/dl (8.5-10.1) L 07/08/22 07:01 POC Ioniz Calcium Libby 1.19 mmol/l (1.12-1.32) 07/06/22 20:43 Magnesium 1.9 mg/dl (1.7-2.4) 07/06/22 20:34 Total Bilirubin 1.0 mg/dl (0.2-1.0) 07/06/22 20:34 AST 11 U/L (13-39) L 07/06/22 20:34 ALT 13 U/L (7-52) 07/06/22 20:34 Alkaline Phosphatase 53 U/L (34-104) 07/06/22 20:34 Ammonia 23.0 umol/L (18-72) 07/07/22 00:04 Troponin I High Sens 23.3 pg/ml (0-20) H 07/07/22 20:41 Total Protein 6.9 gm/dl (6.0-8.3) 07/06/22 20:34 Albumin 4.1 gm/dl (3.4-5.0) 07/06/22 20:34 Globulin 2.8 gm/dl (2.5-4.0) 07/06/22 20:34 Albumin/Globulin Ratio 1.5 (0.9-2) 07/06/22 20:34 Triglycerides 100 mg/dl (0-150) 07/07/22 06:09 Cholesterol 111 mg/dl (0-200) 07/07/22 06:09 LDL Cholesterol, Calc 46 mg/dl 07/07/22 06:09 VLDL Cholesterol, Calc 20 mg/dl (0-30) 07/07/22 06:09 HDL Cholesterol 45 mg/dl 07/07/22 06:09 Cholesterol/HDL Ratio 2.5 (0-5) 07/07/22 06:09 Urine Color Yellow 07/06/22 21:27 Urine Appearance Clear (Clear) 07/06/22 21:27 Urine pH 6.0 (4.5-7.5) 07/06/22 21:27 Ur Specific [place] 1.040 (1.000-1.030) H 07/06/22 21:27 Urine Protein 1+ (Negative) H 07/06/22 21:27 Urine Glucose (UA) 2+ (Negative) H 07/06/22 21:27 Urine Ketones Negative (Negative) 07/06/22 21:27 Urine Blood Trace (Negative) H 07/06/22 21:27 Urine Nitrite Negative (Negative) 07/06/22 21: Urine Bilirubin Negative (Negative) 07/06/22 21: Urine Urobilinogen Negative (Negative) 07/06/22 21: Ur Leukocyte Esterase Negative (Negative) 07/06/22 21:27 Urine WBC (Auto) 1-5 /hpf (0-5) 07/06/22 21: Urine RBC (Auto) 0-4 /hpf (0-4) 07/06/22 21: U Hyaline Cast (Auto) 1-5 /lpf (0-5) 07/06/22 21: U Epithel Cells (Auto) 5-10 /lpf (0-5) H 07/06/22 21:27 Urine Bacteria (Auto) Negative (Negative) 07/06/22 21:27 SARS-CoV-2 (PCR) NEGATIVE (Negative) 07/06/22 20:38 Influenza Type A (PCR) Negative (Neg) 07/06/22 20:38 Influenza Type B (PCR) Negative (Neg) 07/06/22 20:38 RSV (RT-PCR) Negative (Neg) 07/06/22 20:38 Impressions Chest X-Ray 07/06/22 20:28 XR chest 1V portable CLINICAL HISTORY: AMS TECHNIQUE: Single frontal radiograph of the chest was obtained. Comparison: Comparison is made to chest radiograph 08/02/2020 FINDINGS: No lines and tubes are seen. Calcified aortic knob is seen. The lungs are clear. No evidence of pleural effusion or pneumothorax. IMPRESSION: No acute chest disease. ACT 112: Negative or not required by law. Electronically signed by: Phan Contreras M.D. 07/07/2022 9:[address] 07/06/22 20:28 CT angio neck with con, CT angio head w con, CT head/brain wo con CLINICAL HISTORY: neuro deficit, acute stroke suspected TECHNIQUE: Contiguous axial CT images of the head were acquired from the base of the skull to the vertex without intravenous contrast administration. CT angiography of the head and neck was performed following intravenous administration of iodinated contrast. Coronal and sagittal MIPS were obtained from the axial data set and were submitted for review. Automated dose lowering techniques and/or adjustment according to patient size were utilized for this examination. All measurements were calculated based on NASCET criteria. Comparison: Comparison is made to CTA head and neck 01/18/2021 FINDINGS: CT head: Areas of decreased attenuation are present in the periventricular and subcortical white matter bilaterally consistent with small vessel ischemic disease. Generalized cerebral atrophy with commensurate enlargement of the ventricles, sulci, and cisterns is also present. There is no acute intracranial hemorrhage or evidence of acute territorial infarction. No shift of the midline structures, mass effect, or extra-axial abnormalities are shown. Atherosclerotic calcifications are present in the intracranial segments of the internal carotid arteries. A lacunar infarct is seen on the left. Prominent sinus disease is seen with thickening of the nasal christa and opacification of the left greater than right paranasal sinuses. Subcentimeter lymph nodes are seen in the mediastinum. CTA Neck: A 3 vessel aortic arch is shown. Atherosclerotic plaque is present in the aortic arch and at the origin of the great vessels. There is mild calcified atherosclerotic plaque at the bifurcation of the bilateral common carotid arteries without hemodynamically significant flow stenosis. There is no dissection present. The right vertebral artery is dominant. CTA Head: The anterior and posterior cerebral circulations are patent. The right vertebral artery terminates as PICA. There is atherosclerotic calcification of the bilateral cavernous carotid segments without hemodynamically significant stenosis. Partial origin of the left [employer] noted. IMPRESSION: 1. No acute intracranial hemorrhage, evidence of acute territorial infarction, or other acute intracranial disease process. 2. No occlusion, hemodynamically significant stenosis, or dissection in the major cervical arteries. Atherosclerotic disease is seen. 3. No occlusion, hemodynamically significant stenosis, aneurysm, dissection, or arteriovenous malformation in the major intracranial arteries. Assessment of stenosis of the internal carotid arteries is based on NASCET criteria. ACT 112: Negative or not required by law. Electronically signed by: Phan Contreras M.D. 07/07/2022 7:42 AM Head CTA 07/06/22 20:28 CT angio neck with con, CT angio head w con, CT head/brain wo con CLINICAL HISTORY: neuro deficit, acute stroke suspected TECHNIQUE: Contiguous axial CT images of the head were acquired from the base of the skull to the vertex without intravenous contrast administration. CT angiography of the head and neck was performed following intravenous administration of iodinated contrast. Coronal and sagittal MIPS were obtained from the axial data set and were submitted for review. Automated dose lowering techniques and/or adjustment according to patient size were utilized for this examination. All measurements were calculated based on NASCET criteria. Comparison: Comparison is made to CTA head and neck 01/18/2021 FINDINGS: CT head: Areas of decreased attenuation are present in the periventricular and subcortical white matter bilaterally consistent with small vessel ischemic disease. Generalized cerebral atrophy with commensurate enlargement of the ventricles, sulci, and cisterns is also present. There is no acute intracranial hemorrhage or evidence of acute territorial infarction. No shift of the midline structures, mass effect, or extra-axial abnormalities are shown. Atherosclerotic calcifications are present in the intracranial segments of the internal carotid arteries. A lacunar infarct is seen on the left. Prominent sinus disease is seen with thickening of the nasal christa and opacification of the left greater than right paranasal sinuses. Subcentimeter lymph nodes are seen in the mediastinum. CTA Neck: A 3 vessel aortic arch is shown. Atherosclerotic plaque is present in the aortic arch and at the origin of the great vessels. There is mild calcified atherosclerotic plaque at the bifurcation of the bilateral common carotid arteries without hemodynamically significant flow stenosis. There is no dissection present. The right vertebral artery is dominant. CTA Head: The anterior and posterior cerebral circulations are patent. The right vertebral artery terminates as PICA. There is atherosclerotic calcification of the bilateral cavernous carotid segments without hemodynamically significant stenosis. Partial origin of the left [employer]IST noted. IMPRESSION: 1. No acute intracranial hemorrhage, evidence of acute territorial infarction, or other acute intracranial disease process. 2. No occlusion, hemodynamically significant stenosis, or dissection in the major cervical arteries. Atherosclerotic disease is seen. 3. No occlusion, hemodynamically significant stenosis, aneurysm, dissection, or arteriovenous malformation in the major intracranial arteries. Assessment of stenosis of the internal carotid arteries is based on NASCET criteria. ACT 112: Negative or not required by law. Electronically signed by: hPan Contreras M.D. 07/07/2022 7:42 AM Neck CTA 02/16/23 20:28 CT angio neck with con, CT angio head w con, CT head/brain wo con CLINICAL HISTORY: neuro deficit, acute stroke suspected TECHNIQUE: Contiguous axial CT images of the head were acquired from the base of the skull to the vertex without intravenous contrast administration. CT angiography of the head and neck was performed following intravenous administration of iodinated contrast. Coronal and sagittal MIPS were obtained from the axial data set and were submitted for review. Automated dose lowering techniques and/or adjustment according to patient size were utilized for this examination. All measurements were calculated based on NASCET criteria. Comparison: Comparison is made to CTA head and neck 01/18/2021 FINDINGS: CT head: Areas of decreased attenuation are present in the periventricular and subcortical white matter bilaterally consistent with small vessel ischemic disease. Generalized cerebral atrophy with commensurate enlargement of the ventricles, sulci, and cisterns is also present. There is no acute intracranial hemorrhage or evidence of acute territorial infarction. No shift of the midline structures, mass effect, or extra-axial abnormalities are shown. Atherosclerotic calcifications are present in the intracranial segments of the internal carotid arteries. A lacunar infarct is seen on the left. Prominent sinus disease is seen with thickening of the nasal christa and opacification of the left greater than right paranasal sinuses. Subcentimeter lymph nodes are seen in the mediastinum. CTA Neck: A 3 vessel aortic arch is shown. Atherosclerotic plaque is present in the aortic arch and at the origin of the great vessels. There is mild calcified atherosclerotic plaque at the bifurcation of the bilateral common carotid arteries without hemodynamically significant flow stenosis. There is no dissection present. The right vertebral artery is dominant. CTA Head: The anterior and posterior cerebral circulations are patent. The right vertebral artery terminates as PICA. There is atherosclerotic calcification of the bilateral cavernous carotid segments without hemodynamically significant stenosis. Partial origin of the left [employer]IST not ed. IMPRESSION: 1. No acute intracranial hemorrhage, evidence of acute territorial infarction, or other acute intracranial disease process. 2. No occlusion, hemodynamically significant stenosis, or dissection in the major cervical arteries. Atherosclerotic disease is seen. 3. No occlusion, hemodynamically significant stenosis, aneurysm, dissection, or arteriovenous malformation in the major intracranial arteries. Assessment of stenosis of the internal carotid arteries is based on NASCET criteria. ACT 112: Negative or not required by law. Electronically signed by: Phan Contreras M.D. 07/07/2022 7:42 AM Brain MRI 07/07/22 02:52 MRI OF THE BRAIN COMBO CLINICAL HISTORY: Change in mental status. Stroke-like symptoms. COMPARISON STUDY: CT of the brain dated 07/06/2022. TECHNIQUE: MRI of the brain was performed utilizing various T1 and T2-weighted sequences in the axial, sagittal, and coronal planes. Contrast-enhanced sequences were acquired following the administration of 8 cc of Gadavist. FINDINGS: Brain parenchyma: There is age-related change noting advanced confluent subcortical and periventricular microangiopathic disease. There is no hemorrhage or mass effect. There is no restricted diffusion to suggest acute ischemia. No enhancing mass lesion is identified on the postcontrast images. Frias-white matter differentiation is preserved. No extra-axial fluid collection is seen. The cerebellar tonsils are normal in configuration. Mineralization is noted in the basal ganglia. Chronic lacunar infarcts are noted in the right caudate head in the left basal ganglia. Ventricles, sulci, and cisterns: Prominent secondary to uncovertebral change. Pituitary and sella: Unremarkable. Intracranial vasculature: Normal flow voids are maintained at the skull base. Orbits: The bony orbits are grossly intact. Orbital contents are normal in appearance noting bilateral ocular lens implants. Sinuses and mastoids: There is subtotal opacification of the maxillary and ethmoid sinuses. Moderate mucosal thickening is noted in the frontal sinuses and there is trace mucosal thickening in the sphenoid sinuses. A right mastoid effusion is observed. Calvarium: Unremarkable. Cervical cord: Partially visualized cervical spinal cord is normal in morphology and signal intensity. IMPRESSION: 1. No acute intracranial abnormality. 2. Pansinus disease as above. ACT 112: Negative or not required by law. Electronically signed by: Mir Cantu M.D. 07/07/2022 2:08 PM Hospital Course (1) Confusion: Present on admission with confusion Need to rule out acute CVA versus infectious etiology CT head showed no acute intracranial abnormality CTA head and neck show no occlusion, hemodynamically significant stenosis, or dissection in the major cervical arteries. MRI head showed No acute intracranial abnormality. ECHO showed left ventricular wall motion is normal. Ejection fraction 60 to 65%. No interatrial shunt noted. Neuro on board recommended no further stroke work-up since MRIs brain negative Continue P/OT eval Speech on board recommended puree diet. Pt does not want to proceed with any further instrumental swallow assessment Daughter at bedside and patient agreed for permissive aspiration Continue statin and warfarin Sinusitis MRI head showed subtotal opacification of the maxillary and ethmoid sinuses. Moderate mucosal thickening is noted in the frontal sinuses and there is trace mucosal thickening in the sphenoid sinuses. Pt was placed on IV Zosyn for the elevated WBC Will deescalate abx to Augmentin Elevated WBC Possible reactive vs bacteria sinusitis Seems to be chronic because reviewed previous admission show WBC elevated MRI head showed subtotal opacification of the maxillary and ethmoid sinuses. Moderate mucosal thickening is noted in the frontal sinuses and there is trace mucosal thickening in the sphenoid sinuses. UA showed no evidence for UTI Chest x-ray showed no acute disease Blood cx no growth WBC normalized Currently on Zosyn, will transition to Augmentin Resolved History of CVA (cerebral vascular accident): CVA with residual dysarthria/dysphagia and right hand weakness, Had peg tube and was since removed in 10/2019 without reported signs of aspiration. Continue Coumadin, atorvastatin INR 2.4 today Follow up with the coumadin clinic Stable Diabetes mellitus, type 2: Most recent hemoglobin A1c 8.5 on 07/07/21 Take Lantus 17 units at home On Lantus and insulin sliding scales while inpatient Continue monitor blood sugar HTN (hypertension): BP stable Continue amlodipine, metoprolol tartrate DVT Prophylaxis -On Coumadin Full Code Disposition Possible discharge today if medically stable Total Time Total Time Spent Total Time Spent (In Minutes): 35 minutes Discharge Plan Discharge Items Patient Disposition: Home - Self-Care Reason For Visit: AMS Discharge Diagnosis: Confusion Elevated WBC History of CVA (cerebral vascular accident) Diabetes mellitus, type 2 HTN (hypertension) Elevated Troponin Sinusitis Activity: Resume your previous activity Non-emergency contact: Primary Care Provider Call non-emergency contact if: you have any medication questions Follow-up/Referrals: Tamie Portillo PA-C [Primary Care Provider] - Diet: Carb Consistent or DM2 Addtl Attending Provider Instructions: Follow up with your primary care provider within 1 week ( Please call to schedule for the follow up appointment) Follow up with the coumadin clinic to monitor your PT/INR Complete the course of the antibiotic with Augmentin Fall precaution Pending Studies at Discharge: No Stand-Alone Forms: [facility], Smoking Cessation Medications and DC Order Prescriptions: New amoxicillin-pot clavulanate 875-125 mg tablet 1 tab PO BID Qty: 8 0RF Continued fluticasone propion-salmeterol [Wixela Inhub] 250-50 mcg/dose blister with device 1 inh inhalation BID Qty: 90 3RF guaifenesin [Mucinex] 600 mg tablet extended release 12hr 600 mg PO QAM sennosides 8.6 mg tablet 8.6 mg PO QAM docusate sodium [Colace] 100 mg Capsule 100 mg PO QAM atorvastatin 20 mg Tablet 10 mg PO QAM insulin glargine [Lantus Solostar U-100 Insulin] 100 unit/mL (3 mL) insulin pen 17 unit SC HS albuterol sulfate 2.5 mg /3 mL (0.083 %) Solution For Nebulization 2.5 mg INHALATION QID PRN (Reason: Shortness Of Breath) amlodipine 10 mg Tablet 10 mg PO QAM warfarin 5 mg tablet 5 mg PO DAILY Qty: 30 0RF metoprolol tartrate 50 mg Tablet 50 mg PO BID Qty: 60 0RF Discharge Orders: Discharge Order (Routine); Ordered 07/08/22 Ordered By: Dennise Bowen Admission Data Admit Date/Time: 07/06/22 22:52 Attending Provider: Dennise Bowen Admit Provider: Raymond Calzada Primary Care Provider: Tamie Portillo Other Providers: Raymond Calzada ; Agustin Ashley ; Ronald Adams ; Lilliana Trejo ; Ana Stevenson ; Ailyn Nelson ; Marvin Raymond ; Ailyn Gan ; Fidel Joyce ; Lisset Sutton ; Brayan Spain ; Georgia Dueñas ; Jerri Cuellar ; Marvin Huffman ; Gregory Lazar ; [facility] ; Rakesh Galeana
[2022-07-08] MEDS ORDERED: STROKE PATIENT DISCHARGE STA (14:11)
[2022-07-08] MEDS ORDERED: AMOXICILLIN/CLAVULANATE 875 MG TAB PO SCH (21:00)
--- NOTE | 2022-07-13 06:30 | Electroencephalogram ---
EEG Procedure Note Date of Service July 07, 2022 Start / End Times Start Time: 08:29 End Time: 08:[address] Calzada History An 86 year old male with altered mentation. EEG performed for evaluation of epileptiform activity. Home Medication List Medication Instructions Recorded Confirmed Type docusate sodium 100 mg capsule 100 mg PO QAM 09/11/19 07/06/22 History (Colace) albuterol sulfate 2.5 mg/3 mL 2.5 mg inhalation QID PRN 10/23/19 07/06/22 History (0.083 %) solution for nebulization Shortness Of Breath atorvastatin 20 mg tablet 10 mg PO QAM 11/14/19 07/06/22 History insulin glargine 100 unit/mL (3 17 unit SC HS 12/04/19 07/06/22 History mL) subcutaneous pen (Lantus Solostar U-100 Insulin) guaifenesin 600 mg tablet, 600 mg PO QAM 10/11/20 07/06/22 History extended release 12 hr (Mucinex) sennosides 8.6 mg tablet 8.6 mg PO QAM 10/11/20 07/06/22 History amlodipine 10 mg tablet 10 mg PO QAM 01/24/21 07/06/22 History metoprolol tartrate 50 mg tablet 50 mg PO BID #60 tabs 04/29/21 07/06/22 Rx warfarin 5 mg tablet 5 mg PO DAILY #30 tabs 04/29/21 07/06/22 Rx fluticasone 250 mcg-salmeterol 50 1 inh inhalation BID #90 puffs 10/10/21 07/06/22 Rx mcg/dose blistr powdr for inhalation (Wixela Inhub) amoxicillin 875 mg-potassium 1 tab PO BID #8 tabs 07/08/22 Rx clavulanate 125 mg tablet Inpatient Medication List Discontinued Medications Atorvastatin Calcium ([facility]vastatin 10 Mg Tab) [facility] Stop: 08/06/22 08:59 Last Admin: 07/08/22 08:22 Dose: 10 mg Documented By: Admin: 07/07/22 08:53 Dose: 10 mg Documented By: ZENON Fentanyl Citrate (Fentanyl Citrate 100 Mcg/2 Ml Vial) 25 mcg IV NOW STA Stop: 07/06/22 21:33 Last Admin: 07/06/22 21:43 Dose: 25 mcg Documented By: MJJ Fluticasone/Vilanterol (Fluticasone/Vilanterol 200/25mcg 14 Puffs/Inhaler) 1 puffs INH DAILY [facility] Stop: 08/06/22 08:59 Last Admin: 07/08/22 08:22 Dose: 1 puffs Documented By: Admin: 07/07/22 08:53 Dose: 1 puffs Documented By: ZENON Gadobutrol (Gadobutrol 65ml Vial) 8 ml IV ONCE ONE Stop: 07/07/22 13:44 Last Admin: 07/07/22 13:43 Dose: 8 ml Documented By: MLKei Sodium Chloride (Nss 1000ml) 1,000 mls @ 80 mls/hr IV .[id number] [facility] Stop: 08/06/22 02:51 Last Admin: 07/07/22 18:25 Dose: Not Given Documented By: Infusion: 07/07/22 17:09 Dose: 0 mls/hr Documented By: Admin: 07/07/22 03:50 Dose: 80 mls/hr Documented By: CAMILLE Piperacillin Sod/Tazobactam (Sod 3.375 gm/ Dextrose) 115 mls @ 28.75 mls/hr IV Q8H [facility]; Protocol Stop: 07/09/22 11:59 Last Admin: 07/08/22 12:04 Dose: 28.8 mls/hr Documented By: Infusion: 07/08/22 08:17 Dose: 0 mls/hr Documented By: Admin: 07/08/22 04:02 Dose: 28.8 mls/hr Documented By: Infusion: 07/08/22 00:19 Dose: 0 mls/hr Documented By: Admin: 07/07/22 20:19 Dose: 28.8 mls/hr Documented By: Infusion: 07/07/22 18:23 Dose: 0 mls/hr Documented By: Admin: 07/07/22 14:04 Dose: 28.8 mls/hr Documented By: ZENON Piperacillin Sod/Tazobactam (Sod 3.375 gm/ Dextrose) 115 mls @ 230 mls/hr IV NOW ONE; Protocol Stop: 07/07/22 07:29 Last Infusion: 07/07/22 08:37 Dose: 0 mls/hr Documented By: Admin: 07/07/22 07:38 Dose: 230 mls/hr Documented By: ZENON Insulin Aspart (Insulin Aspart Per Unit) 0 units SC Q6 [facility] Stop: 08/06/22 02:59 Last Admin: 07/07/22 12:39 Dose: Not Given Documented By: Admin: 07/07/22 06:14 Dose: Not Given Documented By: Admin: 07/07/22 03:54 Dose: 1 units Documented By: CAMILLE Co-signed By: LORNA Insulin Aspart (Insulin Aspart Per Unit) 0 units SC ACHS [facility] Stop: 08/06/22 16:29 Last Admin: 07/08/22 12:01 Dose: 7 units Documented By: ZENON Co-signed By: RENAY Admin: 07/08/22 08:19 Dose: 2 units Documented By: ZENON Co-signed By: AMOR Admin: 07/07/22 20:19 Dose: Not Given Documented By: Admin: 07/07/22 17:04 Dose: 7 units Documented By: ZENON Co-signed By: RENAY Insulin Glargine (Lantus Per Unit Charge) 8 units SQ DAILY [facility] Stop: 08/06/22 08:59 Last Admin: 07/08/22 08:19 Dose: 8 units Documented By: ZENON Co-signed By: AMOR Admin: 07/07/22 08:10 Dose: 8 units Documented By: ZENON Co-signed By: RENAY Ioversol (Optiray 320 500ml) 105 ml IV ONCE ONE Stop: 07/06/22 20:51 Last Admin: 07/06/22 20:50 Dose: 105 ml Documented By: MCKAYLA Metoprolol Tartrate (Metoprolol Tartrate 50 Mg Tab) 50 mg PO BID [facility] Stop: 08/06/22 08:59 Last Admin: 07/08/22 08:20 Dose: 50 mg Documented By: Admin: 07/07/22 20:20 Dose: 50 mg Documented By: Admin: 07/07/22 08:53 Dose: 50 mg Documented By: ZENON Morphine Sulfate (Morphine Sulfate 2 Mg/Ml Carp) 2 mg IV NOW STA Stop: 07/06/22 22:46 Last Admin: 07/07/22 03:17 Dose: Not Given Documented By: CAMILLE Perflutren Lipid Microsphere (Perflutren Lipid Microsphere (Olistaity)) 2 ml IV ONCE ONE Stop: 07/07/22 07:31 Last Admin: 07/07/22 07:31 Dose: 2 ml Documented By: ARI Sennosides (Senna 8.6 Mg Tab) 8.6 mg PO QAM [facility] Stop: 08/06/22 08:59 Last Admin: 07/08/22 08:22 Dose: 8.6 mg Documented By: Admin: 07/07/22 08:53 Dose: 8.6 mg Documented By: ZENON Vitamin D (Cholecalciferol 1,000 Units 25 Mcg Tab) 1,000 units PO QPM [facility] Stop: 08/06/22 20:59 Last Admin: 07/07/22 20:20 Dose: 1,000 units Documented By: CAMILLE Warfarin Sodium (Warfarin Sod 5 Mg Tab) 5 mg PO DAILY@1600 [facility] Stop: 08/06/22 15:59 Last Admin: 07/07/22 17:08 Dose: 5 mg Documented By: ZENON Description This is a 21 electrode EEG with a single channel dedicated to limited EKG. The electrodes were placed in accordance with the International 10-20 system. REPORT: At the onset of the EEG the patient is awake. The backgound is symmet william. The background predominantly consist of a mixture of 10-11 Hz alpha activity with 5-7 Hz theta activity. There is significant myogenic artifact throughout in the frontal head region. Photic does not induce any abnormalities. No spikes or epileptiform discharges are seen. No stage II sleep transients are seen. Interpretation IMPRESSION: This is an abnormal awake routine EEG due to generalized background slowing suggestive of a non specific encephalopathy. No epileptiform activity is seen.
== END 2022-07-08 15:00 | disposition home or self-care (01) | DRG 948 ==
LOC: ED 20:30 → SUATTDRO 22:52 → 2S 22:52

== ENCOUNTER 2022-12-28 14:37 | Inpatient (IN) ==
--- NOTE | 2022-12-28 15:40 | XRay Report ---
XR chest 1V portable CLINICAL HISTORY: Chest pain, nonspecific TECHNIQUE: Single frontal radiograph of the chest was obtained. Comparison: Comparison is made to chest radiograph 07/06/2022 FINDINGS: No lines and tubes are seen. Cardiomegaly is noted. The aortic arch is calcified. The lungs are clear . No evidence of pleural effusion or pneumothorax. IMPRESSION: No acute chest disease. ACT 112: Negative or not required by law. Electronically signed by: Phan Contreras M.D. 12/28/2022 3:39 PM
[2022-12-28 15:56] LABS: Basophils # (auto) 0.05 K/uL (0-0.2); Basophils % (auto) 0.5 %; Eosinophils % (auto) 2.8 %; Hematocrit (blood only) 42.8 % (42.0-52.0); Hemoglobin 14.3 g/dl (14.0-18.0); Immature Granulocytes # (auto) 0.04 K/uL (0.01-0.20); Immature Granulocytes % (auto) 0.4 %; Lymphocytes # (auto) 1.97 K/uL (1.2-3.4); Lymphocytes % (auto) 18.1 %; Mean Corpuscular Hemoglobin 27.8 pg (25.0-34.0); Mean Corpuscular Hgb Conc 33.4 g/dL (32.0-36.0); Mean Corpuscular Volume 83.1 fL (80.0-100.0); Mean Platelet Volume 10.9 fL (9.4-12.4); Monocytes # (auto) 0.93 K/uL (0.11-0.59); Monocytes % (auto) 8.6 %; Neutrophils # (auto) 7.58 K/uL (1.40-6.50); Neutrophils % (auto) 69.6 %; Platelet Count 283 K/uL (130-400); RDW Coefficient of Variation 14.7 % (11.5-14.5); RDW Standard Deviation 44.6 fL (36.4-46.3); Red Blood Count 5.15 M/uL (4.70-6.10); White Blood Count 10.87 K/ul (4.8-10.8)
[2022-12-28 16:12] LABS: Alanine Aminotransferase 19 U/L (7-52); Albumin Globulin Ratio 1.4 (0.9-2); Albumin Level 3.9 gm/dl (3.4-5.0); Alkaline Phosphatase 43 U/L (34-104); Anion Gap 8 (3-11); Aspartate Aminotransferase 14 U/L (13-39); BUN Creatinine Ratio 18.6 (10-20); Bilirubin,Total 1.3 mg/dl (0.2-1.0); Blood Urea Nitrogen 22 mg/dl (6-23); Calcium 9.2 mg/dl (8.6-10.3); Carbon Dioxide 28 mmol/L (21-32); Chloride 104 mmol/L (98-107); Est GFR (African American) 63.9 ml/min; Est GFR (Non-African American) 55.2 ml/min; Globulin 2.8 gm/dl (2.5-4.0); Glucose 193 mg/dl (70-99(Fasting)); Lipase 24 U/L (11-82); Potassium 4.4 mmol/L (3.5-5.1); Sodium 140 mmol/L (136-145); Total Protein 6.7 gm/dl (6.0-8.3)
[2022-12-28 16:16] LABS: Troponin I High Sensitivity 10.2 pg/ml (0-20)
[2022-12-28 16:36] LABS: INR 2.4 (0.9-1.1); Partial Thromboplastin Ratio 1.4; Partial Thromboplastin Time 39.9 Seconds (21.0-31.0); Prothrombin Time 24.6 Seconds (9.0-12.0)
[2022-12-28 16:41] LABS: Base Excess VBG 3.2 mEq/L; HCO3 VBG 30 mmol/L; Oxygen Saturation VBG < 60.0 %; PCO2 VBG 53 mmHg (38-50); PO2 VBG 34 mmHg; pH VBG 7.36 (7.36-7.41)
[2022-12-28] MEDS ORDERED: LORazepam 2 MG/1 ML VIAL IV STA (16:48)
--- NOTE | 2022-12-28 17:05 | CT Scan Report ---
CT SCAN OF THE BRAIN WITHOUT IV CONTRAST CLINICAL HISTORY: Change in mental status. COMPARISON STUDY: CT of the brain dated TECHNIQUE: Unenhanced axial CT scan of the brain is performed from the vertex to the skull base. A do se lowering technique was utilized adhering to the principles of ALARA. CT DOSE: 625.80 mGy.cm FINDINGS: Brain parenchyma: There is age-related involutional change noting advanced confluent subcortical and periventricular microangiopathic disease. There is no hemorrhage, mass effect, or evidence of acute t erritorial ischemia by CT criteria. Frias-white matter differentiation is preserved. A chronic lacunar infarct is noted in the left basal ganglia. No extra-axial fluid collection is seen. Ventricles, sulci, cisterns: Prominent secondary to involutional change. Intracranial vasculature: There is atherosclerotic calcification of the cavernous carotid and vertebr al arteries. Calvarium: Unremarkable. Sinuses and mastoids: There is complete opacification of the left maxillary sinus. Moderate mucosal t hickening seen in the right maxillary sinus. Thickening and sclerosis of the sinus king indicates ch ronicity. There is moderate to severe mucosal thickening within the frontal and ethmoid sinuses. Trac e mucosal thickening is noted in the sphenoid sinuses. There is a small right mastoid effusion. The l eft mastoid air cells are well pneumatized. Orbits: The bony orbits are grossly intact. There are bilateral ocular lens implants. IMPRESSION: 1. There is no hemorrhage, mass effect, or evidence of acute territorial ischemia by CT criteria. 2. Pansinus disease as above. ACT 112: Negative or not required by law. Electronically signed by: Mir Cantu M.D. 12/28/2022 5:04 PM
[2022-12-28] MEDS ORDERED: GLUCOSE 40% GEL 15 GM TUBE PO PRN (18:15)
[2022-12-28] MEDS ORDERED: ALUMINUM/MAGNESIUM SUSP 30 ML UDC PO PRN (18:15)
[2022-12-28] MEDS ORDERED: CARBOHYDRATES FOR HYPOGLYCEMIA PO PRN (18:15)
[2022-12-28] MEDS ORDERED: GLUCAGON FOR INJ 1 MG VIAL SQ PRN (18:15)
[2022-12-28] MEDS ORDERED: ACETAMINOPHEN 325 MG TAB PO PRN (18:15)
[2022-12-28] MEDS ORDERED: DEXTROSE 50% 50 ML SYRINGE IV PRN (18:15)
[2022-12-28] MEDS ORDERED: NITROGLYCERIN SL 0.4 MG/TAB TAB SL PRN (18:15)
[2022-12-28] MEDS ORDERED: GLUCOSE 10 TAB/TUBE PO PRN (18:15)
--- NOTE | 2022-12-28 18:28 | History & Physical Report ---
Date of Service December 28, 2022 Assessment & Plan (1) Altered mental status: Plan Worsening dysarthria Rule out stroke Likely metabolic encephalopathy Patient has a history of stroke in 2019 with residual right hand weakness and dysarthria Per patient's daughter, today patient with increased dysarthria and expressive aphasia, and confusion baseline mentation wnl per dtr; ambulates independently per dtr. Admitting CT head with no acute findings. Get echo, lipid profile, A1c, neurology consult, MRI brain. Speech consult, PT/OT, n.p.o. until speech evaluation. Concern for chest pain: Admitting troponin negative/EKG w/ no acute ST or T Changes, trend troponin, EKG daily. Patient getting echo as a part of stroke workup. Prolonged NH interval: on admitting EKG, NH of 316s. Hold home metoprolol. Consult cardio Other chronic medical conditions: HTN, hyperlipidemia, history of stroke --continue with/resume home meds as and when able. Pt takes metoprolol succinate 50 mg daily, warfarin 5 mg daily. DVT prophylaxis: Patient on warfarin Full code History of Present Illness Chief Complaint: Worsening dysarthria Primary Care Provider: Tamie Portillo PA-C 87-year-old male with PMH of HTN, stroke [January 2019] with residual dysarthria and right hand weakness per daughter presented 12/28 to ED from independent living facility [[facility]] with concern of ?? chest pain and worsening dysarthria. Patient dates dysarthric and is confused, could not provide history, appears comfortable. History taken from chart review/discussion with the emergency doctor/discussion with patient's daughter over the phone. Per patient daughter, patient was wandering in the hallway of his independent living facility when tenants noticed him complaining of pain possibly chest pain they called EMS. Per patient daughter who visits the patient 2-3 times a week, patient does have increased dysarthria and expressive aphasia today. Of note patient did have a history of stroke with residual dysarthria at baseline. At baseline his mentation is fine and is alert and oriented, ambulates independently. ROS not able due to cognition status. Per patient daughter, patient does not smoke, used to drink very occasionally, never used recreational drug. Patient is full code. Medications were reviewed with the patient's daughter Plan of care discussed with the patient's daughter. Allergies Allergy/AdvReac Type Severity Reaction Status Date / Time No Known Allergies Allergy Verified 12/28/22 17:06 Home Medications Medication Instructions Recorded Confirmed Type docusate sodium 100 mg capsule 100 mg PO QAM 09/11/19 12/28/22 History (Colace) atorvastatin 20 mg tablet 10 mg PO QAM 11/14/19 12/28/22 History insulin glargine 100 unit/mL (3 17 unit SC HS 12/04/19 12/28/22 History mL) subcutaneous pen (Lantus Solostar U-100 Insulin) guaifenesin 600 mg tablet, 600 mg PO QAM 10/11/20 12/28/22 History extended release 12 hr (Mucinex) sennosides 8.6 mg tablet 17.2 mg PO QAM 10/11/20 12/28/22 History amlodipine 10 mg tablet 10 mg PO QAM 01/24/21 12/28/22 History metoprolol tartrate 50 mg tablet 50 mg PO BID #60 tabs 04/29/21 12/28/22 Rx fluticasone 250 mcg-salmeterol 50 1 inh inhalation BID #90 puffs 11/28/22 12/28/22 Rx mcg/dose blistr powdr for inhalation (Wixela Inhub) albuterol sulfate 2.5 mg/3 mL 2.5 mg inhalation DIRECTED PRN 12/28/22 12/28/22 History (0.083 %) solution for nebulization Shortness Of Breath Or Wheezing albuterol sulfate 90 mcg/actuation 1 inh inhalation DIRECTED 12/28/22 12/28/22 History aerosol inhaler insulin aspart U-100 100 unit/mL 1 sliding scale dose subcut 12/28/22 12/28/22 History subcutaneous cartridge (Novolog USEASDIRECTD PenFill U-100 Insulin aspart) warfarin 2.5 mg tablet 2.5 mg PO DIRECTED 12/28/22 12/28/22 History Past Med/Surg History Medical History Acute and chronic respiratory failure with hypoxia Acute exacerbation of chronic obstructive pulmonary disease Asthma inhaler/nebulizer prn Atrial fibrillation on xarelto BPH (benign prostatic hyperplasia) Chronic pansinusitis COPD (chronic obstructive pulmonary disease) Dysarthria 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 Jerri Hayden @ [facility] [place] [facility] Transient ischemic attack (TIA) 07/2018--no lasting deficits from that mini stroke Surgical History History of abdominal surgery removal of stomach cancer mass History of appendectomy History of bilateral cataract extraction History of esophagogastroduodenoscopy (EGD) History of gastric restrictive surgery History of nasal polypectomy History of prostate surgery History of tooth extraction most teeth removed Status post insertion of percutaneous endoscopic gastrostomy (PEG) tube Family History Brother Family history of diabetes mellitus Other No family history of adverse response to anesthesia No family history of bleeding disorder Social History Smoking Status: Unknown if ever smoked Second Hand Exposure: No; Do You Dip or Chew Tobacco: No; Hx Alcohol Use: No Hx Substance Use: No Preferred Language: Sinhala Communication Ability: Effective Communication Ability Comment: daughter needs to be with pt Financial Aid Manager Required: Yes Beliefs That Will Affect Care: None marital status: Current Living Situation: Alone Current Living Situation Comment: [place]oving current occupational status: retired Feels Safe at Home: Yes Assistive Devices: Cane and Walker Review of Systems Review of Systems: not able Physical Exam Physical Exam: GENERAL: dysarthric, appears confused. on RA, NAD. HEENT: No pallor, no icterus. Pupils equal, round and reactive to light. Oral mucosa moist. NECK: No JVD, no neck masses. HEART: S1 and S2 heard. Regular rate and rhythm. No murmur, no gallop. RESPIRATORY SYSTEM: Normal AP diameter. No accessory muscle use. No wheezing, no crackles. ABDOMEN: Soft, bowel sounds present, nontender, no distention. CENTRAL NERVOUS SYSTEM: No facial droop. dysarthria, can't cooperate for exam. EXTREMITIES: No edema, no erythema seen. Results & Data Results & Data Vital Signs (Past 12 Hours) Vital Signs Temp Pulse Resp BP Pulse Ox O2 Del Method O2 Flow Rate 12/28/22 17:30 76 13 12/28/22 17:30 99/60 L 12/28/22 17:20 89 15 12/28/22 17:10 78 15 12/28/22 17:04 79 12 12/28/22 17:04 153/79 H 12/28/22 16:32 128/79 12/28/22 16:24 79 18 12/28/22 16:20 78 19 12/28/22 16:10 77 21 12/28/22 16:01 81 14 12/28/22 16:01 162/102 H 12/28/22 15:58 105 H 14 12/28/22 15:40 74 14 12/28/22 15:32 165/87 H 12/28/22 15:32 96 12/28/22 15:30 96 12/28/22 15:20 71 16 98 12/28/22 15:10 74 16 97 12/28/22 15:01 73 12 96 12/28/22 15:01 144/61 H 12/28/22 15:00 72 12 95 12/28/22 15:07 99 Room Air 12/28/22 14:50 73 22 99 12/28/22 14:45 75 17 99 12/28/22 14:45 157/66 H 12/28/22 14:45 157/66 H 12/28/22 14:51 99 Room Air 0 12/28/22 14:47 36.5 C 73 22 157/66 H 99 Room Air 12/28/22 14:46 77 (1) Altered mental status Altered mental status type: unspecified Qualified Code(s): R41.82 - Altered mental status, unspecified
[2022-12-28] MEDS: LACTATED RINGER'S 1,000 ML IV SCH (19:15)
[2022-12-28 19:27] LABS: Appearance Urine Clear (Clear); Bacteria Urine Automated Negative (Negative); Bilirubin Urine Negative (Negative); Blood Urine Negative (Negative); Cast Urine Automated 0 /lpf (0-5); Color Urine Yellow; Glucose Urine UA Negative (Negative); Ketones Urine 1+ (Negative); Leukocyte Esterase Urine Negative (Negative); Nitrite Urine Negative (Negative); Protein Urine 1+ (Negative); RBC Urine Automated 0-4 /hpf (0-4); Specific Gravity Urine 1.019 (1.000-1.030); Urobilinogen Urine Negative (Negative); pH Urine 5.5 (4.5-7.5)
[2022-12-28] MEDS ORDERED: ALBUTEROL 0.083% NEBU SOLN 3 ML VIAL INH PRN (20:19)
--- NOTE | 2022-12-28 20:42 | Emergency Department Note ---
History of Present Illness General Chief complaint: Chest Pain Stated complaint: ANXIETY, ILLNESS Time Seen by Provider: 12/28/22 15:55 Source: family (Daughter at bedside) History of Present Illness Provider complaint: Difficulty speaking chest pain 87-year-old male presents emergency department for difficulty speaking and chest pain. Daughter states that she was not present when the patient's symptoms began and she is not sure when the patient's symptoms began. Daughter reports that the patient lives at an independent living facility and she was called by the warranty manager. Per the warranty manager the patient was found in the hallway having distress reporting chest pain and having difficulty speaking. They stated the patient was very anxious. Patient was brought into the emergency department. Daughter states that the patient has a history of stroke and has some dysarthria however today his dysarthria and expressive aphasia is much worse. Daughter reports that the patient is on Coumadin. Home Medications Medication Instructions Recorded Confirmed Type docusate sodium 100 mg capsule 100 mg PO QAM 09/11/19 12/28/22 History (Colace) atorvastatin 20 mg tablet 10 mg PO QAM 11/14/19 12/28/22 History insulin glargine 100 unit/mL (3 17 unit SC HS 12/04/19 12/28/22 History mL) subcutaneous pen (Lantus Solostar U-100 Insulin) guaifenesin 600 mg tablet, 600 mg PO QAM 10/11/20 12/28/22 History extended release 12 hr (Mucinex) sennosides 8.6 mg tablet 17.2 mg PO QAM 10/11/20 12/28/22 History amlodipine 10 mg tablet 10 mg PO QAM 01/24/21 12/28/22 History metoprolol tartrate 50 mg tablet 50 mg PO BID #60 tabs 04/29/21 12/28/22 Rx fluticasone 250 mcg-salmeterol 50 1 inh inhalation BID #90 puffs 11/28/22 12/28/22 Rx mcg/dose blistr powdr for inhalation (Wixela Inhub) albuterol sulfate 2.5 mg/3 mL 2.5 mg inhalation DIRECTED PRN 12/28/22 12/28/22 History (0.083 %) solution for nebulization Shortness Of Breath Or Wheezing albuterol sulfate 90 mcg/actuation 1 inh inhalation DIRECTED 12/28/22 12/28/22 History aerosol inhaler insulin aspart U-100 100 unit/mL 1 sliding scale dose subcut 12/28/22 12/28/22 History subcutaneous cartridge (Novolog USEASDIRECTD PenFill U-100 Insulin aspart) warfarin 2.5 mg tablet 2.5 mg PO DIRECTED 12/28/22 12/28/22 History Allergies Allergy/AdvReac Type Severity Reaction Status Date / Time No Known Allergies Allergy Verified 12/28/22 17:06 Past Med/Surg History Medical History Acute and chronic respiratory failure with hypoxia Acute exacerbation of chronic obstructive pulmonary disease Acute hypoxemic respiratory failure Asthma inhaler/nebulizer prn Atrial fibrillation on xarelto BPH (benign prostatic hyperplasia) Chronic pansinusitis Confusion COPD (chronic obstructive pulmonary disease) CVA (cerebral vascular accident) Diabetes mellitus, type 2 DVT prophylaxis Dysarthria 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 Jerri Hayden @ [facility] [place] [facility] Transient ischemic attack (TIA) 07/2018--no lasting deficits from that mini stroke Surgical History History of abdominal surgery removal of stomach cancer mass History of appendectomy History of bilateral cataract extraction History of esophagogastroduodenoscopy (EGD) History of gastric restrictive surgery History of nasal polypectomy History of prostate surgery History of tooth extraction most teeth removed Status post insertion of percutaneous endoscopic gastrostomy (PEG) tube Family History Brother Family history of diabetes mellitus Other No family history of adverse response to anesthesia No family history of bleeding disorder Social History Smoking Status: Unknown if ever smoked Second Hand Exposure: No; Do You Dip or Chew Tobacco: No; Hx Alcohol Use: No Hx Substance Use: No Preferred Language: Italian Communication Ability: Effective Communication Ability Comment: daughter needs to be with pt Senior Marketing Associate Required: Yes Beliefs That Will Affect Care: None marital status: Current Living Situation: Alone Current Living Situation Comment: [place] current occupational status: retired Feels Safe at Home: Yes Assistive Devices: Cane and Walker Physical Exam Vital Signs Vital Signs - 24 hr 12/28/22 14:46 12/28/22 14:47 12/28/22 14:51 Temperature 36.5 C Temperature Source Oral Pulse Rate 77 73 Pulse Rate from SpO2 Sensor Respiratory Rate 22 Respiratory Effort / Characteristics Spontaneous Other Respiratory Depth Normal Blood Pressure 157/66 H Blood Pressure Mean 96 Pulse Oximetry 99 Oxygen Delivery Method Room Air Oxygen Flow Rate Sepsis Recent Fever Within 48 Hours No Sepsis New/Unexplained Change in Mental Status N/A Sepsis Action Taken by Nursing No Action Required 12/28/22 14:51 12/28/22 14:45 12/28/22 14:45 Temperature Temperature Source Pulse Rate Pulse Rate from SpO2 Sensor Respiratory Rate Respiratory Effort / Characteristics Respiratory Depth Blood Pressure 157/66 H 157/66 H Blood Pressure Mean 89 89 Pulse Oximetry 99 Oxygen Delivery Method Room Air Oxygen Flow Rate 0 Sepsis Recent Fever Within 48 Hours Sepsis New/Unexplained Change in Mental Status Sepsis Action Taken by Nursing 12/28/22 14:45 12/28/22 14:50 12/28/22 15:07 Temperature Temperature Source Pulse Rate 75 73 Pulse Rate from SpO2 Sensor 75 74 Respiratory Rate 17 22 Respiratory Effort / Characteristics Respiratory Depth Blood Pressure Blood Pressure Mean Pulse Oximetry 99 99 99 Oxygen Delivery Method Room Air Oxygen Flow Rate Sepsis Recent Fever Within 48 Hours Sepsis New/Unexplained Change in Mental Status Sepsis Action Taken by Nursing 12/28/22 15:00 12/28/22 15:01 12/28/22 15:01 Temperature Temperature Source Pulse Rate 72 73 Pulse Rate from SpO2 Sensor 73 66 Respiratory Rate 12 12 Respiratory Effort / Characteristics Respiratory Depth Blood Pressure 144/61 H Blood Pressure Mean 107 Pulse Oximetry 95 96 Oxygen Delivery Method Oxygen Flow Rate Sepsis Recent Fever Within 48 Hours Sepsis New/Unexplained Change in Mental Status Sepsis Action Taken by Nursing 12/28/22 15:10 12/28/22 15:20 12/28/22 15:30 Temperature Temperature Source Pulse Rate 74 71 Pulse Rate from SpO2 Sensor 49 L 61 82 Respiratory Rate 16 16 Respiratory Effort / Characteristics Respiratory Depth Blood Pressure Blood Pressure Mean Pulse Oximetry 97 98 96 Oxygen Delivery Method Oxygen Flow Rate Sepsis Recent Fever Within 48 Hours Sepsis New/Unexplained Change in Mental Status Sepsis Action Taken by Nursing 12/28/22 15:32 12/28/22 15:32 12/28/22 15:40 Temperature Temperature Source Pulse Rate 74 Pulse Rate from SpO2 Sensor 85 Respiratory Rate 14 Respiratory Effort / Characteristics Respiratory Depth Blood Pressure 165/87 H Blood Pressure Mean 108 Pulse Oximetry 96 Oxygen Delivery Method Oxygen Flow Rate Sepsis Recent Fever Within 48 Hours Sepsis New/Unexplained Change in Mental Status Sepsis Action Taken by Nursing 12/28/22 15:58 12/28/22 16:01 12/28/22 16:01 Temperature Temperature Source Pulse Rate 105 H 81 Pulse Rate from SpO2 Sensor Respiratory Rate 14 14 Respiratory Effort / Characteristics Respiratory Depth Blood Pressure 162/102 H Blood Pressure Mean 127 Pulse Oximetry Oxygen Delivery Method Oxygen Flow Rate Sepsis Recent Fever Within 48 Hours Sepsis New/Unexplained Change in Mental Status Sepsis Action Taken by Nursing 12/28/22 16:10 12/28/22 16:20 12/28/22 16:24 Temperature Temperature Source Pulse Rate 77 78 79 Pulse Rate from SpO2 Sensor Respiratory Rate 21 19 18 Respiratory Effort / Characteristics Respiratory Depth Blood Pressure Blood Pressure Mean Pulse Oximetry Oxygen Delivery Method Oxygen Flow Rate Sepsis Recent Fever Within 48 Hours Sepsis New/Unexplained Change in Mental Status Sepsis Action Taken by Nursing 12/28/22 16:32 12/28/22 17:04 12/28/22 17:04 Temperature Temperature Source Pulse Rate 79 Pulse Rate from SpO2 Sensor Respiratory Rate 12 Respiratory Effort / Characteristics Respiratory Depth Blood Pressure 128/79 153/79 H Blood Pressure Mean 86 121 Pulse Oximetry Oxygen Delivery Method Oxygen Flow Rate Sepsis Recent Fever Within 48 Hours Sepsis New/Unexplained Change in Mental Status Sepsis Action Taken by Nursing 12/28/22 17:10 12/28/22 17:20 12/28/22 17:30 Temperature Temperature Source Pulse Rate 78 89 Pulse Rate from SpO2 Sensor Respiratory Rate 15 15 Respiratory Effort / Characteristics Respiratory Depth Blood Pressure 99/60 L Blood Pressure Mean 62 Pulse Oximetry Oxygen Delivery Method Oxygen Flow Rate Sepsis Recent Fever Within 48 Hours Sepsis New/Unexplained Change in Mental Status Sepsis Action Taken by Nursing 12/28/22 17:30 Temperature Temperature Source Pulse Rate 76 Pulse Rate from SpO2 Sensor Respiratory Rate 13 Respiratory Effort / Characteristics Respiratory Depth Blood Pressure Blood Pressure Mean Pulse Oximetry Oxygen Delivery Method Oxygen Flow Rate Sepsis Recent Fever Within 48 Hours Sepsis New/Unexplained Change in Mental Status Sepsis Action Taken by Nursing Physical Exam CV: Normal rate, regular rhythm, normal heart sounds and intact distal pulses. There is no peripheral edema. Palpable radial pulses bue. PULM/CHEST: Effort normal and breath sounds normal. No respiratory distress. No stridor. He has no wheezes. He has no rales. NEURO: Dysarthria with expressive aphasia. Motor and sensation are intact. Patient is able to follow some commands. Course Course 1555: The patient was evaluated in room C12. A complete history and physical exam was performed Cardiac monitoring: An order was placed for continuous cardiac monitoring. The monitor shows a rate of 70 with sinus rhythm interpreted by me Concern for stroke given the patient's worsening dysarthria and expressive aphas ia. Unknown start of symptoms and patient is on Coumadin, code stroke will not be called. 0: Vital signs stable. Labs show a white blood cell count of 10.87. INR 2.4. VBG shows venous pH of 7.36 with a venous pCO2 of 53. Labs are within normal limits. CT of the head negative. [facility] [place]: Patient's daughter Mónica [phone] updated with plans to admit the patient. Administered Medications Lactated Ringer's (Lr) 1,000 mls @ 65 mls/hr IV .[id number] BRODY Stop: 12/30/22 01:16 Last Admin: 12/28/22 19:15 Dose: 65 mls/hr Documented By: SISSY Discontinued Medications Lorazepam (Lorazepam 2 Mg/1 Ml Vial) 1 mg IV NOW STA Stop: 12/28/22 16:49 Last Admin: 12/28/22 16:57 Dose: 1 mg Documented By: FINA Medical Decision Making Laboratory Data Attestation: I reviewed the patient's lab results. 12/28/22 14:45 12/28/22 14:45 Lab Results 12/28/22 12/28/22 12/28/22 Range/Units 14:45 14:45 14:45 WBC 10.87 H (4.8-10.8) K/ul RBC 5.15 (4.70-6.10) M/uL Hgb 14.3 (14.0-18.0) g/dl Hct 42.8 (42.0-52.0) % MCV 83.1 (80.0-100.0) fL MCH 27.8 (25.0-34.0) pg MCHC 33.4 (32.0-36.0) g/dL RDW Std Deviation 44.6 (36.4-46.3) fL RDW Coeff of Mainor 14.7 H (11.5-14.5) % Plt Count 283 (130-400) K/uL MPV 10.9 (9.4-12.4) fL Immature Gran % (Auto) 0.4 % Neut % (Auto) 69.6 % Lymph % (Auto) 18.1 % [place] % (Auto) 8.6 % Eos % (Auto) 2.8 % Baso % (Auto) 0.5 % Neut # (Auto) 7.58 H (1.40-6.50) K/uL Lymph # (Auto) 1.97 (1.2-3.4) K/uL [place] # (Auto) 0.93 H (0.11-0.59) K/uL Eos # (Auto) 0.30 (0-0.50) K/uL Baso # (Auto) 0.05 (0-0.2) K/uL Immature Gran # (Auto) 0.04 (0.01-0.20) K/uL PT 24.6 H (9.0-12.0) Seconds INR 2.4 H (0.9-1.1) APTT 39.9 H (21.0-31.0) Seconds PTT Ratio 1.4 VBG pH (7.36-7.41) VBG pCO2 (38-50) mmHg VBG pO2 mmHg VBG HCO3 mmol/L VBG O2 Saturation % VBG Base Excess mEq/L Sodium 140 (136-145) mmol/L Potassium 4.4 (3.5-5.1) mmol/L Chloride 104 (98-107) mmol/L Carbon Dioxide 28 (21-32) mmol/L Anion Gap 8 (3-11) BUN 22 (6-23) mg/dl Creatinine 1.18 (0.6-1.4) mg/dl Est Cr Clr Drug Dosing Not Reportable Est GFR ( Amer) 63.9 ml/min Est GFR (Non-Af Amer) 55.2 ml/min BUN/Creatinine Ratio 18.6 (10-20) Glucose 193 H (70-99(Fasting)) mg/dl POC Glucose (70-99) mg/dl Calcium 9.2 (8.6-10.3) mg/dl Total Bilirubin 1.3 H (0.2-1.0) mg/dl AST 14 (13-39) U/L ALT 19 (7-52) U/L Alkaline Phosphatase 43 (34-104) U/L Troponin I High Sens 10.2 (0-20) pg/ml Total Protein 6.7 (6.0-8.3) gm/dl Albumin 3.9 (3.4-5.0) gm/dl Globulin 2.8 (2.5-4.0) gm/dl Albumin/Globulin Ratio 1.4 (0.9-2) Lipase 24 (11-82) U/L 12/28/22 12/28/22 Range/Units 16:12 16:15 WBC (4.8-10.8) K/ul RBC (4.70-6.10) M/uL Hgb (14.0-18.0) g/dl Hct (42.0-52.0) % MCV (80.0-100.0) fL MCH (25.0-34.0) pg MCHC (32.0-36.0) g/dL RDW Std Deviation (36.4-46.3) fL RDW Coeff of Mainor (11.5-14.5) % Plt Count (130-400) K/uL MPV (9.4-12.4) fL Immature Gran % (Auto) % Neut % (Auto) % Lymph % (Auto) % [place] % (Auto) % Eos % (Auto) % Baso % (Auto) % Neut # (Auto) (1.40-6.50) K/uL Lymph # (Auto) (1.2-3.4) K/uL [place] # (Auto) (0.11-0.59) K/uL Eos # (Auto) (0-0.50) K/uL Baso # (Auto) (0-0.2) K/uL Immature Gran # (Auto) (0.01-0.20) K/uL PT (9.0-12.0) Seconds INR (0.9-1.1) APTT (21.0-31.0) Seconds PTT Ratio VBG pH 7.36 (7.36-7.41) VBG pCO2 53 H (38-50) mmHg VBG pO2 34 mmHg VBG HCO3 30 mmol/L VBG O2 Saturation < 60.0 % VBG Base Excess 3.2 mEq/L Sodium (136-145) mmol/L Potassium (3.5-5.1) mmol/L Chloride (98-107) mmol/L Carbon Dioxide (21-32) mmol/L Anion Gap (3-11) BUN (6-23) mg/dl Creatinine (0.6-1.4) mg/dl Est Cr Clr Drug Dosing Est GFR ( Amer) ml/min Est GFR (Non-Af Amer) ml/min BUN/Creatinine Ratio (10-20) Glucose (70-99(Fasting)) mg/dl POC Glucose 181 H (70-99) mg/dl Calcium (8.6-10.3) mg/dl Total Bilirubin (0.2-1.0) mg/dl AST (13-39) U/L ALT (7-52) U/L Alkaline Phosphatase (34-104) U/L Troponin I High Sens (0-20) pg/ml Total Protein (6.0-8.3) gm/dl Albumin (3.4-5.0) gm/dl Globulin (2.5-4.0) gm/dl Albumin/Globulin Ratio (0.9-2) Lipase (11-82) U/L Imaging Data Attestation: I personally reviewed and interpreted this imaging study as follows: My Impression: Chest x-ray negative. Airway clear. No pneumothorax. No consolidation. No cardiomegaly or cephalization.. No free air under the diaphragm. No fractures of the skeletal structures. Radiologist's Impression: Chest X-Ray 12/28/22 15:07 XR chest 1V portable CLINICAL HISTORY: Chest pain, nonspecific TECHNIQUE: Single frontal radiograph of the chest was obtained. Comparison: Comparison is made to chest radiograph 07/06/2022 FINDINGS: No lines and tubes are seen. Cardiomegaly is noted. The aortic arch is calcified. The lungs are clear. No evidence of pleural effusion or pneumothorax. IMPRESSION: No acute chest disease. ACT 112: Negative or not required by law. Electronically signed by: Phan Contreras M.D. 12/28/2022 3:[address] 12/28/22 16:06 CT SCAN OF THE BRAIN WITHOUT IV CONTRAST CLINICAL HISTORY: Change in mental status. COMPARISON STUDY: CT of the brain dated TECHNIQUE: Unenhanced axial CT scan of the brain is performed from the vertex to the skull base. A dose lowering technique was utilized adhering to the prin ciples of KAMRYN. CT DOSE: 625.80 mGy.cm FINDINGS: Brain parenchyma: There is age-related involutional change noting advanced confluent subcortical and periventricular microangiopathic disease. There is no hemorrhage, mass effect, or evidence of acute territorial ischemia by CT criteria. Firas-white matter differentiation is preserved. A chronic lacunar infarct is noted in the left basal ganglia. No extra-axial fluid collection is seen. Ventricles, sulci, cisterns: Prominent secondary to involutional change. Intracranial vasculature: There is atherosclerotic calcification of the cavernous carotid and vertebral arteries. Calvarium: Unremarkable. Sinuses and mastoids: There is complete opacification of the left maxillary sinus. Moderate mucosal thickening seen in the right maxillary sinus. Thickening and sclerosis of the sinus king indicates chronicity. There is moderate to severe mucosal thickening within the frontal and ethmoid sinuses. Trace mucosal thickening is noted in the sphenoid sinuses. There is a small right mastoid effusion. The left mastoid air cells are well pneumatized. Orbits: The bony orbits are grossly intact. There are bilateral ocular lens implants. IMPRESSION: 1. There is no hemorrhage, mass effect, or evidence of acute territorial ischemia by CT criteria. 2. Pansinus disease as above. ACT 112: Negative or not required by law. Electronically signed by: Mir Cantu M.D. 12/28/2022 5:04 PM ECG Data Rate (beats per minute): 73 Rhythm: + normal sinus ECG Intervals/blocks: + First degree AV block, + Normal QRS and + Normal QT-c ECG ST segments: + Normal ST segments ECG Findings: + PVCs MDM Narrative 1555: The patient was evaluated in room C12. A complete history and physical exam was performed Cardiac monitoring: An order was placed for continuous cardiac monitoring. The monitor shows a rate of 70 with sinus rhythm interpreted by me Concern for stroke given the patient's worsening dysarthria and expressive aphasia. Unknown start of symptoms and patient is on Coumadin, code stroke will not be called. 1730: Vital signs stable. Labs show a white blood cell count of 10.87. INR 2.4. VBG shows venous pH of 7.36 with a venous pCO2 of 53. Labs are within normal limits. CT of the head negative. [facility] [place] [place]. 2041: Patient's daughter Mónica [phone] updated with plans to admit the patient. Impression & Plan Dysarthria, Altered mental status, Chest pain, Expressive aphasia Discharge Plan Visit Data Chief Complaint: Chest Pain Stated Complaint: ANXIETY, ILLNESS ED Provider: Tomy Brooks Discharge Problem: Dysarthria, Altered mental status, Chest pain, Expressive aphasia Patient Disposition: Admitted As Inpatient Discharge Instructions Interventions: ED Discharge Assessment Last Done: 12/28/22 20:19
[2022-12-28] MEDS ORDERED: FLUTICASONE/VILANTEROL 200/25MCG 14 PUFFS/INHALER INH SCH (21:00)
[2022-12-28] MEDS ORDERED: GADOBUTROL 65ML VIAL IV ONE (21:42)
[2022-12-28] MEDS: LANTUS PER UNIT CHARGE SQ SCH (22:44)
[2022-12-28] MEDS: INSULIN ASPART PER UNIT CHARGE SC SCH (22:45)
--- NOTE | 2022-12-29 | Magnetic Resonance Report ---
Exam(s): MRI HEAD W/WO Contrast IV Amt: 8.2cc gadavist EXAM: MR Head Without and With Intravenous Contrast CLINICAL HISTORY: Reason for exam: increased dysarthria per fam member. TECHNIQUE: Magnetic resonance images of the head/brain without and with intravenous contrast in multiple planes. CONTRAST: Patient received 8.2cc gadavist of IV contrast COMPARISON: Comparison made to prior CT scan of the head from July 06, 2022. FINDINGS: Brain: Advanced nonspecific white matter changes. Remote ischemic injury of the left capsule. Remote ischemic injury of the left occipital lobe with encephalomalacia and gliosis. The flow voids at the base of the brain are intact. No mass. No hemorrhage. No acute infarct. No evidence of abnormal enhancement. Ventricles: Moderate ventriculomegaly. Bones/joints: Mild to advanced facet arthropathy at C2-3 and C3-4. 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 Recommend ENT consult. No acute sinusitis. Mastoid air cells: Unremarkable as visualized. No mastoid effusion. Orbits: Bilateral lens replacements. IMPRESSION: No evidence of acute intracranial pathology. Remote ischemic injuries of the left capsule and occipital lobe. Advanced nonspecific white matter changes. Electronically signed by: Anjana Crabtree MD 12/29/22 00:00 AM
[2022-12-29 06:40] LABS: Hematocrit (blood only) 43.3 % (42.0-52.0); Hemoglobin 14.5 g/dl (14.0-18.0); Mean Corpuscular Hemoglobin 27.3 pg (25.0-34.0); Mean Corpuscular Hgb Conc 33.5 g/dL (32.0-36.0); Mean Corpuscular Volume 81.5 fL (80.0-100.0); Mean Platelet Volume 10.2 fL (9.4-12.4); Platelet Count 262 K/uL (130-400); RDW Coefficient of Variation 14.6 % (11.5-14.5); RDW Standard Deviation 43.4 fL (36.4-46.3); Red Blood Count 5.31 M/uL (4.70-6.10)
[2022-12-29 06:54] LABS: Anion Gap 6 (3-11); BUN Creatinine Ratio 17.5 (10-20); Blood Urea Nitrogen 17 mg/dl (6-23); Calcium 9.1 mg/dl (8.6-10.3); Carbon Dioxide 28 mmol/L (21-32); Chloride 105 mmol/L (98-107); Chol HDL Ratio 2.6 (0-5); Cholesterol 118 mg/dl (0-200); Est GFR (Non-African American) 69.9 ml/min; Glucose 92 mg/dl (70-99(Fasting)); HDL Cholesterol 45 mg/dl; LDL Cholesterol Calculated 50 mg/dl; Phosphorus 2.5 mg/dl (2.5-4.9); Potassium 3.8 mmol/L (3.5-5.1); Sodium 139 mmol/L (136-145); Triglycerides 115 mg/dl (0-150); VLDL Cholesterol 23 mg/dl (0-30)
[2022-12-29 07:09] LABS: INR 2.4 (0.9-1.1); Prothrombin Time 24.7 Seconds (9.0-12.0)
--- NOTE | 2022-12-29 07:14 | Cardiology Consultation ---
Date of Consultation December 29, 2022 Assessment & Plan (1) Chest pain: Plan Impression: 87-year-old male with prior history of CVA with notable residual dysarthria and weakness. Presented with worsening dysarthria however there was questionable concerns regarding chest pain and shortness of breath. Patient denies any chest pain. Breathing at baseline with mild shortness of breath relieved with use of inhalers-patient with a history of COPD Cardiac workup included an EKG which showed a prolonged FL interval. Metoprolol has since been held. Telemetry showing sinus rhythm with PVCs in a bigeminy pattern with rates in the 60s to 70s. High-sensitivity troponin negative. Plan: Cardiac workup reassuring thus far. Will repeat an EKG to reassess FL interval. Consider restarting metoprolol succinate 12.5 mg nightly pending repeat EKG re sults due to PVCs on telemetry. Blood pressures are hypertensive-restart home amlodipine at lower dose, 2.5 mg daily. Further recommendations pending echo results Please refer to physician addendum for further information and plan of care. Supervising Physician Co-Signing Physician Notes Attending Staff: Pt seen and examined with [facility] staff. Concur with observations and plans 87 yo man presenting with possilbe chest pain Consult; chest and prolonged FL interval (>300 ms) Lives in Hx of CVA Worsening speech - may have complained of chest pain Concerned for repeat CVA CT of Head - no bleed, no new CVA noted Brain MRI - no acute intracranial pathology Pt's speech improved - no real complaints of chest pain Hypertensive on presentation - 150-160 mmHg BP meds restarted EK12/28/22 * Old IMI * 1st degree AVB - FL interval is 316 ms * No active ischemic changes Troponin normal x 4 ECHO - Jun 2022 * LVEF 60% * No WMA * Moderate LVH * Aortic Sclerosis * Trace MR Plans: * No complaints of chest pain * Troponin - negative * No evidence of CHF on exam * No pauses on telemetry * ECHOcardiogram - ordered - results Pending * No Lyme exposures * Check TSH * No new meds * Holding Beta blockers * On telemetry=- ongoing * 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 EKG showed a prolonged FL interval. Metoprolol was held and cardiology consulted. High-sensitivity troponins negative x 4. LDL controlled, 50 Last echo dated 06/2022 showed a normal LVEF of 60 to 65% without wall motion abnormalities. Moderate concentric LVH. Moderate aortic sclerosis without stenosis. Trace MR. Repeat echocardiogram pending. Upon entrance into the room patient sitting up on the edge of the bed. Expresses significant frustration as he is hungry and has not been allowed to eat since he has been here. This is his main concern. States that yesterday his family was not able to understand him however the symptoms have resolved. Speech remains garbled but patient is easily understood. States that this speech is back to his baseline. States that he has never had any chest discomfort. He is active and able to ambulate independently. He does note some mild shortness of breath with exertion which has been at baseline. Uses his inhalers with relief in symptoms. Denies palpitations. No lightheadedness or dizziness. No orthopnea or PND. No lower extremity edema. Past medical history: Hypertension History of stroke, 01/2019 with residual dysarthria and right hand weakness Hyperlipidemia Allergies Allergy/AdvReac Type Severity Reaction Status Date / Time No Known Allergies Allergy Verified 12/28/22 17:06 Home Medications Medication Instructions Recorded Confirmed Type docusate sodium 100 mg capsule 100 mg PO QAM 09/11/19 12/28/22 History (Colace) atorvastatin 20 mg tablet 10 mg PO QAM 11/14/19 12/28/22 History insulin glargine 100 unit/mL (3 17 unit SC HS 12/04/19 12/28/22 History mL) subcutaneous pen (Lantus Solostar U-100 Insulin) guaifenesin 600 mg tablet, 600 mg PO QAM 10/11/20 12/28/22 History extended release 12 hr (Mucinex) sennosides 8.6 mg tablet 17.2 mg PO QAM 10/11/20 12/28/22 History amlodipine 10 mg tablet 10 mg PO QAM 01/24/21 12/28/22 History metoprolol tartrate 50 mg tablet 50 mg PO BID #60 tabs 12/10/21 08/10/23 Rx fluticasone 250 mcg-salmeterol 50 1 inh inhalation BID #90 puffs 11/28/22 12/28/22 Rx mcg/dose blistr powdr for inhalation (Wixela Inhub) albuterol sulfate 2.5 mg/3 mL 2.5 mg inhalation DIRECTED PRN 12/28/22 12/28/22 History (0.083 %) solution for nebulization Shortness Of Breath Or Wheezing albuterol sulfate 90 mcg/actuation 1 inh inhalation DIRECTED 12/28/22 3 History aerosol inhaler insulin aspart U-100 100 unit/mL 1 sliding scale dose subcut 12/28/22 12/28/22 History subcutaneous cartridge (Novolog USEASDIRECTD PenFill U-100 Insulin aspart) warfarin 2.5 mg tablet 2.5 mg PO DIRECTED 12/28/22 12/28/22 History Patient History Medical History Acute and chronic respiratory failure with hypoxia Acute exacerbation of chronic obstructive pulmonary disease Acute hypoxemic respiratory failure Asthma inhaler/nebulizer prn Atrial fibrillation on xarelto BPH (benign prostatic hyperplasia) Chronic pansinusitis Confusion COPD (chronic obstructive pulmonary disease) CVA (cerebral vascular accident) Diabetes mellitus, type 2 DVT prophylaxis Dysarthria 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 [facility] [place] Transient ischemic attack (TIA) 07/2018--no lasting deficits from that mini stroke Surgical History History of abdominal surgery removal of stomach cancer mass History of appendectomy History of bilateral cataract extraction History of esophagogastroduodenoscopy (EGD) History of gastric restrictive surgery History of nasal polypectomy History of prostate surgery History of tooth extraction most teeth removed Status post insertion of percutaneous endoscopic gastrostomy (PEG) tube Family History Brother Family history of diabetes mellitus Other No family history of adverse response to anesthesia No family history of bleeding disorder Social History Smoking Status: Never smoker Second Hand Exposure: No; Do You Dip or Chew Tobacco: No; Hx Alcohol Use: No Hx Substance Use: No Preferred Language: Bulgarian Communication Ability: Effective Communication Ability Comment: daughter needs to be with pt Antique Finisher Required: No Beliefs That Will Affect Care: None marital status: Current Living Situation: Personal Care Facility Current Living Situation Comment: [place] current occupational status: retired Other Information That Helps Us Care for You: No Feels Safe at Home: Yes Safety Concerns: Feels Safe At This Time Assistive Devices: Cane Review of Systems Review of Systems: All systems reviewed & are unremarkable except as noted in HPI & below Physical Exam Physical Exam: Thin man in NAD No carotid bruits S1S2 2/6 systolic murmur CTA B No LE edema Warm and well perfused Constitutional: WD/WN, vitals as above no acute distress Eyes: PERRL, conjunctivae normal, anicteric sclerae Neck: normal visual inspection and trachea midline Respiratory: normal respiratory effort, + respiratory distress and + cough (nonproductive) Auscultation: + crackles (BL bases); no rhonchi and no wheezes Cardiovascular: RRR, no murmur, no edema Heart Sounds: normal S1, normal S2 and + murmur (+systolic murmur) Vessels: no JVD Extremities: no edema Gastrointestinal (Abdomen): normal bowel sounds, soft, nontender, no hepatosplenomegaly Skin: no rashes, warm and dry Psychiatric: A+Ox3, euthymic affect Results & Data Vital Signs (Past 12 Hours) Vital Signs Temp Pulse Resp BP Pulse Ox O2 Del Method 12/29/22 07:03 36.4 C L 69 18 147/90 H 96 Room Air 12/29/22 04:38 36.4 C L 60 18 147/83 H 95 Room Air 12/28/22 23:00 36.8 C 78 16 168/81 H 96 Room Air 12/28/22 21:01 Room Air Laboratory Results Cardiac Enzymes 12/28/22 12/28/22 12/29/22 Range/Units 14:45 19:04 00:50 AST 14 (13-39) U/L Troponin I High Sens 10.2 9.9 14.5 D (0-20) pg/ml 12/29/22 Range/Units 06:09 AST (13-39) U/L Troponin I High Sens 16.6 (0-20) pg/ml Coagulation 12/28/22 12/29/22 Range/Units 14:45 06:09 PT 24.6 H 24.7 H (9.0-12.0) Seconds APTT 39.9 H (21.0-31.0) Seconds Lipids 12/29/22 Range/Units 06:09 Triglycerides 115 (0-150) mg/dl Cholesterol 118 (0-200) mg/dl HDL Cholesterol 45 mg/dl Cholesterol/HDL Ratio 2.6 (0-5) CBC 12/28/22 12/29/22 Range/Units 14:45 06:09 WBC 10.87 H 9.40 (4.8-10.8) K/ul RBC 5.15 5.31 (4.70-6.10) M/uL Hgb 14.3 14.5 (14.0-18.0) g/dl Hct 42.8 43.3 (42.0-52.0) % Plt Count 283 262 (130-400) K/uL Neut # (Auto) 7.58 H (1.40-6.50) K/uL Lymph # (Auto) 1.97 (1.2-3.4) K/uL Mckean # (Auto) 0.93 H (0.11-0.59) K/uL Eos # (Auto) 0.30 (0-0.50) K/uL Baso # (Auto) 0.05 (0-0.2) K/uL Comprehensive Metabolic Panel 12/28/22 12/29/22 Range/Units 14:45 06:09 Sodium 140 139 (136-145) mmol/L Potassium 4.4 3.8 (3.5-5.1) mmol/L Chloride 104 105 (98-107) mmol/L Carbon Dioxide 28 28 (21-32) mmol/L BUN 22 17 (6-23) mg/dl Creatinine 1.18 0.97 (0.6-1.4) mg/dl Glucose 193 H 92 (70-99(Fasting)) mg/dl Calcium 9.2 9.1 (8.6-10.3) mg/dl AST 14 (13-39) U/L ALT 19 (7-52) U/L Alkaline Phosphatase 43 (34-104) U/L Total Protein 6.7 (6.0-8.3) gm/dl Albumin 3.9 (3.4-5.0) gm/dl Intake and Output 12/28/22 12/29/22 12/29/22 22:59 06:59 14:59 Other: # Unmeasured Voids 1 Weight 83 kg 79.8 kg Weight Measurement Method Built in [facility]
[2022-12-29 07:16] LABS: Estimated Average Glucose 186 mg/dl; Hemoglobin A1C 8.1 % (4.5-5.6)
[2022-12-29] MEDS: INSULIN ASPART PER UNIT CHARGE SC SCH ×2 (08:27→12:12)
--- NOTE | 2022-12-29 08:28 | Electrocardiogram Report ---
Test Reason : Blood Pressure : / mmHG Vent. Rate : 073 BPM Atrial Rate : 073 BPM P-R Int : 316 ms QRS Dur : 090 ms QT Int : 396 ms P-R-T Axes : 086 -02 040 degrees QTc Int : 436 ms Sinus rhythm with 1st degree A-V block with occasional Premature ventricular complexes Inferior infarct (cited on or before 12-APR-2020) Abnormal ECG When compared with ECG of 06-JUL-2022 21:01, Premature ventricular complexes are now Present Nonspecific T wave abnormality no longer evident in Anterolateral leads Confirmed by Jossue Parks ([id number]) on 12/29/2022 8:28:18 AM Referred By: REFERRED SELF Confirmed By:Reji Parks
--- NOTE | 2022-12-29 08:28 | Electrocardiogram Report ---
Test Reason : Blood Pressure : / mmHG Vent. Rate : 060 BPM Atrial Rate : 060 BPM P-R Int : 278 ms QRS Dur : 090 ms QT Int : 440 ms P-R-T Axes : 078 -03 062 degrees QTc Int : 440 ms Sinus rhythm with 1st degree A-V block Inferior infarct (cited on or before 12-APR-2020) Abnormal ECG When compared with ECG of 28-DEC-2022 14:45, (unconfirmed) Premature ventricular complexes are no longer Present Confirmed by Jossue Parks ([id number]) on 12/29/2022 8:27:26 AM Referred By: REFERRED SELF Confirmed By:Reji Parks
[2022-12-29] MEDS: LANTUS PER UNIT CHARGE SQ SCH (08:33)
[2022-12-29] MEDS ORDERED: FLUTICASONE/VILANTEROL 200/25MCG 14 PUFFS/INHALER INH SCH (09:00)
[2022-12-29] MEDS ORDERED: ATORVASTATIN 10 MG TAB PO SCH (09:00)
[2022-12-29] MEDS ORDERED: DOCUSATE SODIUM 100 MG CAP PO SCH (09:00)
[2022-12-29] MEDS ORDERED: amLODIPine BESYLATE 5 MG TAB PO SCH (09:00)
[2022-12-29] MEDS ORDERED: SENNA 8.6 MG TAB PO SCH (09:00)
[2022-12-29] MEDS: LACTATED RINGER'S 1,000 ML IV SCH (09:23)
--- NOTE | 2022-12-29 09:56 | Neurology Consultation ---
Date of Consultation December 29, 2022 Assessment & Plan (1) Dysarthria: Fluctuating dysarthria secondary to prior stroke. No new changes on MRI. Patient is appropriately anticoagulated for secondary prevention. No further neurologic workup, we will sign off, please contact us with any questions. Telehealth Consultation Telehealth Information Telehealth Information: I performed this visit using a real-time telehealth connection between my location and the patients location ([facility]). After connecting through interactive tele-video, patient was identified by name and date of and/or wristband check.Patient (or authorized healthcare collections representative) was informed that this was a telemedicine visit and it was being conducted confidentially over secure lines. My office door was closed and no one else was present in the room with me.Patient (or authorized healthcare collections representative) provided consent to proceed with the visit, expressed an understanding of privacy and security of the telemedicine visit, and gave permission to have a hospital collections representative in the room in order to assist with the visit and to conduct portions of the visit, as needed. I informed the patient (or authorized healthcare collections representative) that I reviewed their record and presented the opportunity for them to ask any questions regarding the visit today. The patient agreed to participate. History of Present Illness Reason for Consultation: Speech changes Requesting Physician: Dr. Mederos Attending Physician: Lindsay Mederos MD History of Present Illness Marvin Adams is an 87 yo M with a history of dysarthria after prior stroke presenting from his [facility] with worsening dysarthria. The patient reports that his speech will intermittently worsen but is back to normal today. He denies any additional stroke symptoms including new weakness, vision changes, numbness or headache. He has been taking his warfarin. Allergies Allergy/AdvReac Type Severity Reaction Status Date / Time No Known Allergies Allergy Verified 12/28/22 17:06 Home Medications Medication Instructions Recorded Confirmed Type docusate sodium 100 mg capsule 100 mg PO QAM 09/11/19 12/28/22 History (Colace) atorvastatin 20 mg tablet 10 mg PO QAM 11/14/19 12/28/22 History insulin glargine 100 unit/mL (3 17 unit SC HS 12/04/19 12/28/22 History mL) subcutaneous pen (Lantus Solostar U-100 Insulin) guaifenesin 600 mg tablet, 600 mg PO QAM 10/11/20 12/28/22 History extended release 12 hr (Mucinex) sennosides 8.6 mg tablet 17.2 mg PO QAM 10/11/20 12/28/22 History amlodipine 10 mg tablet 10 mg PO QAM 01/24/21 12/28/22 History metoprolol tartrate 50 mg tablet 50 mg PO BID #60 tabs 04/29/21 12/28/22 Rx fluticasone 250 mcg-salmeterol 50 1 inh inhalation BID #90 puffs 11/28/22 12/28/22 Rx mcg/dose blistr powdr for inhalation (Wixela Inhub) albuterol sulfate 2.5 mg/3 mL 2.5 mg inhalation DIRECTED PRN 12/28/22 12/28/22 History (0.083 %) solution for nebulization Shortness Of Breath Or Wheezing albuterol sulfate 90 mcg/actuation 1 inh inhalation DIRECTED 12/28/22 12/28/22 History aerosol inhaler insulin aspart U-100 100 unit/mL 1 sliding scale dose subcut 12/28/22 12/28/22 History subcutaneous cartridge (Novolog USEASDIRECTD PenFill U-100 Insulin aspart) warfarin 2.5 mg tablet 2.5 mg PO DIRECTED 12/28/22 12/28/22 History Patient History Medical History Acute and chronic respiratory failure with hypoxia Acute exacerbation of chronic obstructive pulmonary disease Acute hypoxemic respiratory failure Asthma inhaler/nebulizer prn Atrial fibrillation on xarelto BPH (benign prostatic hyperplasia) Chronic pansinusitis Confusion COPD (chronic obstructive pulmonary disease) CVA (cerebral vascular accident) Diabetes mellitus, type 2 DVT prophylaxis Dysarthria 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 Jerri Hayden @ [facility] [place] Neurology Transient ischemic attack (TIA) 07/2018--no lasting deficits from that mini stroke Surgical History History of abdominal surgery removal of stomach cancer mass History of appendectomy History of bilateral cataract extraction History of esophagogastroduodenoscopy (EGD) History of gastric restrictive surgery History of nasal polypectomy History of prostate surgery History of tooth extraction most teeth removed Status post insertion of percutaneous endoscopic gastrostomy (PEG) tube Family History Brother Family history of diabetes mellitus Other No family history of adverse response to anesthesia No family history of bleeding disorder Social History Smoking Status: Never smoker Second Hand Exposure: No; Do You Dip or Chew Tobacco: No; Hx Alcohol Use: No Hx Substance Use: No Preferred Language: Greenlandic Communication Ability: Effective Communication Ability Comment: daughter needs to be with pt Medical Microbiologist Required: No Beliefs That Will Affect Care: None marital status: Current Living Situation: Personal Care Facility Current Living Situation Comment: [place] current occupational status: retired Other Information That Helps Us Care for You: No Feels Safe at Home: Yes Safety Concerns: Feels Safe At This Time Assistive Devices: Cane Review of Systems +dysarthria Physical Exam Neurological Examination: Mental Status: Awake and alert. Oriented to person, place, and time. Fluent with nasal speech. Comprehension intact. Affect appropriate. Cranial Nerves: II: pupils 3/3 to 2/2, rlole grossly intact. III/IV/: Versions intact without nystagmus, no gaze preference. V: Facial sensation symmetric to light touch VII: Facial expression symmetric VIII: Hearing intact to voice IX/X: Palate elevates symmetrically XI: Shoulder shrug symmetric XII: Tongue midline Motor: Strength was symmetric and antigravity throughout. There were no abnormal movements. Coordination: No dysmetria Reflexes: Unable to assess over telemedicine Results & Data Vital Signs (Past 12 Hours) Vital Signs Temp Pulse Resp BP Pulse Ox O2 Del Method 12/29/22 07:03 36.4 C L 69 18 147/90 H 96 Room Air 12/29/22 04:38 36.4 C L 60 18 147/83 H 95 Room Air 12/28/22 23:00 36.8 C 78 16 168/81 H 96 Room Air Laboratory Results Abnormal lab results 12/28/22 12/28/22 12/28/22 Range/Units 14:45 14:45 14:45 WBC 10.87 H (4.8-10.8) K/ul RDW Coeff of Mainor 14.7 H (11.5-14.5) % Neut # (Auto) 7.58 H (1.40-6.50) K/uL Grant # (Auto) 0.93 H (0.11-0.59) K/uL PT 24.6 H (9.0-12.0) Seconds INR 2.4 H (0.9-1.1) APTT 39.9 H (21.0-31.0) Seconds VBG pCO2 (38-50) mmHg Glucose 193 H (70-99(Fasting)) mg/dl POC Glucose (70-99) mg/dl Hemoglobin A1c (4.5-5.6) % Total Bilirubin 1.3 H (0.2-1.0) mg/dl Urine Protein (Negative) Urine Ketones (Negative) U Epithel Cells (Auto) (0-5) /lpf 12/28/22 12/28/22 12/28/22 Range/Units 16:12 16:15 22:39 WBC (4.8-10.8) K/ul RDW Coeff of Mainor (11.5-14.5) % Neut # (Auto) (1.40-6.50) K/uL Grant # (Auto) (0.11-0.59) K/uL PT (9.0-12.0) Seconds INR (0.9-1.1) APTT (21.0-31.0) Seconds VBG pCO2 53 H (38-50) mmHg Glucose (70-99(Fasting)) mg/dl POC Glucose 181 H 169 H (70-99) mg/dl Hemoglobin A1c (4.5-5.6) % Total Bilirubin (0.2-1.0) mg/dl Urine Protein (Negative) Urine Ketones (Negative) U Epithel Cells (Auto) (0-5) /lpf 12/28/22 12/29/22 12/29/22 Range/Units Unknown 06:09 06:09 WBC (4.8-10.8) K/ul RDW Coeff of Mainor 14.6 H (11.5-14.5) % Neut # (Auto) (1.40-6.50) K/uL Grant # (Auto) (0.11-0.59) K/uL PT (9.0-12.0) Seconds INR (0.9-1.1) APTT (21.0-31.0) Seconds VBG pCO2 (38-50) mmHg Glucose (70-99(Fasting)) mg/dl POC Glucose (70-99) mg/dl Hemoglobin A1c 8.1 H (4.5-5.6) % Total Bilirubin (0.2-1.0) mg/dl Urine Protein 1+ H (Negative) Urine Ketones 1+ H (Negative) U Epithel Cells (Auto) 5-10 H (0-5) /lpf 12/29/22 Range/Units 06:09 WBC (4.8-10.8) K/ul RDW Coeff of Mainor (11.5-14.5) % Neut # (Auto) (1.40-6.50) K/uL Grant # (Auto) (0.11-0.59) K/uL PT 24.7 H (9.0-12.0) Seconds INR 2.4 H (0.9-1.1) APTT (21.0-31.0) Seconds VBG pCO2 (38-50) mmHg Glucose (70-99(Fasting)) mg/dl POC Glucose (70-99) mg/dl Hemoglobin A1c (4.5-5.6) % Total Bilirubin (0.2-1.0) mg/dl Urine Protein (Negative) Urine Ketones (Negative) U Epithel Cells (Auto) (0-5) /lpf Diagnostic Findings MRI brain unremarkable
--- NOTE | 2022-12-29 14:27 | Discharge Summary ---
Date of Service December 29, 2022 Admission HPI Per Admitting Provider 87-year-old male with PMH of HTN, stroke [January 2019] with residual dysarthria and right hand weakness per daughter presented 12/28 to ED from independent living facility [[facility]] with concern of ?? chest pain and worsening dysarthria. Patient dates dysarthric and is confused, could not provide history, appears comfortable. History taken from chart review/discussion with the emergency doctor/discussion with patient's daughter over the phone. Per patient daughter, patient was wandering in the hallway of his independent living facility when tenants noticed him complaining of pain possibly chest pain they called EMS. Per patient daughter who visits the patient 2-3 times a week, patient does have increased dysarthria and expressive aphasia today. Of note patient did have a history of stroke with residual dysarthria at baseline. At baseline his mentation is fine and is alert and oriented, ambulates independently. ROS not able due to cognition status. Per patient daughter, patient does not smoke, used to drink very occasionally, never used recreational drug. Patient is full code. Medications were reviewed with the patient's daughter Plan of care discussed with the patient's daughter. Admission Exam Per Admitting Provider GENERAL: dysarthric, appears confused. on RA, NAD. HEENT: No pallor, no icterus. Pupils equal, round and reactive to light. Oral mucosa moist. NECK: No JVD, no neck masses. HEART: S1 and S2 heard. Regular rate and rhythm. No murmur, no gallop. RESPIRATORY SYSTEM: Normal AP diameter. No accessory muscle use. No wheezing, no crackles. ABDOMEN: Soft, bowel sounds present, nontender, no distention. CENTRAL NERVOUS SYSTEM: No facial droop. dysarthria, can't cooperate for exam. EXTREMITIES: No edema, no erythema seen. Principal Diagnosis Concern for stroke, ruled out Concern for chest pain, ruled out ACS First-degree AV block with IN interval > 300 MS Discharge Exam GENERAL: Alert and oriented x 3, on RA, NAD. HEENT: No pallor, no icterus. Pupils equal, round and reactive to light. Oral mucosa moist. NECK: No JVD, no neck masses. HEART: S1 and S2 heard. Regular rate and rhythm. No murmur, no gallop. RESPIRATORY SYSTEM: Normal AP diameter. No accessory muscle use. No wheezing, no crackles. ABDOMEN: Soft, bowel sounds present, nontender, no distention. CENTRAL NERVOUS SYSTEM: No facial droop. dysarthria at baseline; has nl and equal motor strength x all extremities EXTREMITIES: No edema, no erythema seen. Discharge Data Allergies Allergy/AdvReac Type Severity Reaction Status Date / Time No Known Allergies Allergy Verified 12/28/22 17:06 Consultations 12/28/22 17:30 ED Decision to Admit Stat 12/28/22 18:15 Consult Neurology Routine 12/28/22 18:57 Consult Cardiology Routine Ordered Studies 12/28/22 16:06 CT head/brain wo con Stat 12/28/22 18:10 MRI Brain [MR brain wo/w con] Routine Hospital Course (1) Altered mental status: Plan Worsening dysarthria Rule out stroke Likely metabolic encephalopathy Patient has a history of stroke in 2019 with residual right hand weakness and dysarthria Per patient's daughter at admission, patient with increased dysarthria and expressive aphasia, and confusion baseline mentation wnl per dtr; ambulates independently per dtr. Admitting CT head with no acute findings. MRI w/ no new acute findings. ECHO reviewed. Neuro evaled, appreciate recs. LDL 50 and A1C 8.1 (reasonably controlled in this patient considering age). Speech evaled. PT evaled. Concern for chest pain: Admitting troponin negative/EKG w/ no acute ST or T Changes, trend troponin, EKG daily. Patient now is oriented and denied chest pain yesterday. Prolonged IN interval: on admitting EKG, IN of 316s. Cardiology evaluated, metoprolol discontinued. IN interval decreasing. Patient daughter made aware. Other chronic medical conditions: HTN, hyperlipidemia, history of stroke --continue with/resume home meds as and when able. Pt takes metoprolol succinate 50 mg daily, warfarin 5 mg daily. DVT prophylaxis: Patient on warfarin Full code Patient being discharged back to independent living facility with following instruction at the point of discharge: Follow-up with your primary care physician within a week time and likely you will need labs CBC/CMP/magnesium/phosphorus. Your metoprolol has been discontinued because of greatly increased " IN interval in the EKG." You will need repeat EKG in a week time to monitor improvement in your IN interval. Coordinate with the PCP office, you will likely be placed on alternative medications for metoprolol if needed. Take your medications as prescribed. Home Health Attestation I certify that this patient is under my care and that I, or a physicians criminal legal assistant working with me, had a face to-face encounter that meets the home health [id number] encounter requirements with this patient. The encounter with the patient was in whole, or in part, for the following medical condition, which is the primary reason for home health care (list medical condition): I certify that, based on my findings, the following services are medically necessary home health services: My clinical findings support the need for the above services because: Further, I certify that my clinical findings support that this patient is homebound (i.e. absences from home require considerable and taxing effort and are for medical reasons or yarsani services or infrequently or of short duration when for other reasons) because: Certification for Home Health Services: Based on the above findings, I certify that this patient is confined to the home and needs intermittent longterm care, physical therapy and/or speech therapy or continues to need occupational therapy. The patient is under my care, and I have initiated the establishment of the plan of care. This patient will be followed by a physician who will periodically review the plan of care. Total Time Total Time Spent Total Time Spent (In Minutes): 45 Discharge Plan Discharge Items Patient Disposition: Home - Self-Care Reason For Visit: INCREASED DYSATHRIA Discharge Diagnosis: Concern for stroke, ruled out Concern for chest pain, ruled out ACS First-degree AV block with IN interval > 300 MS Activity: Resume your previous activity Non-emergency contact: Primary Care Provider Call non-emergency contact if: you have any medication questions, your symptoms worsen and your temperature is above 101 Follow-up/Referrals: Tamie Portillo PA-C [Primary Care Provider] - Diet: Carb Consistent or DM2 and Heart Healthy Addtl Attending Provider Instructions: Follow-up with your primary care physician within a week time and likely you will need labs CBC/CMP/magnesium/phosphorus. Your metoprolol has been discontinued because of greatly increased " IN interval in the EKG." You will need repeat EKG in a week time to monitor improvement in your IN interval. Coordinate with the PCP office, you will likely be placed on alternative medications for metoprolol if needed. Take your medications as prescribed. Pending Studies at Discharge: No Stand-Alone Forms: My [facility], Smoking Cessation Medications and DC Order Prescriptions: Continued fluticasone propion-salmeterol [Wixela Inhub] 250-50 mcg/dose blister with device 1 inh inhalation BID Qty: 90 3RF guaifenesin [Mucinex] 600 mg tablet extended release 12hr 600 mg PO QAM sennosides 8.6 mg tablet 17.2 mg PO QAM docusate sodium [Colace] 100 mg Capsule 100 mg PO QAM atorvastatin 20 mg Tablet 10 mg PO QAM insulin glargine [Lantus Solostar U-100 Insulin] 100 unit/mL (3 mL) insulin pen 17 unit SC HS albuterol sulfate 2.5 mg /3 mL (0.083 %) Solution For Nebulization 2.5 mg INHALATION DIRECTED PRN (Reason: Shortness Of Breath Or Wheezing) warfarin 2.5 mg Tablet 2.5 mg PO DIRECTED Rx Instructions: as direcred by anticoagulation clinic albuterol sulfate 90 mcg/actuation Hfa Aerosol Inhaler 1 inh INHALATION DIRECTED insulin aspart U-100 [Novolog PenFill U-100 Insulin] 100 unit/mL Cartridge 1 sliding scale dose SUBCUT USEASDIRECTD amlodipine 10 mg Tablet 10 mg PO QAM Discontinued metoprolol tartrate 50 mg Tablet 50 mg PO BID Qty: 60 0RF Discharge Orders: Discharge Order (Routine); Ordered 12/29/22 Ordered By: Lindsay Mederos Admission Data Admit Date/Time: 12/28/22 18:15 Attending Provider: Lindsay Mederos Admit Provider: Lindsay Mederos Primary Care Provider: Tamie Portillo Other Providers: Mónica Tillman ; Frandy Lee ; Paula Mas ; Rk Burnett ; Jelani Orlando ; Boom Drummond ; Larry Price ; Masood Perera ; Olive Motta ; Ailyn Story ; Paula Ramirez ; Ousmane Laws ; Amairani King ; Wilder Mortensen ; [facility]
[2022-12-29] MEDS ORDERED: WARFARIN SOD 5 MG TAB PO SCH (16:00)
== END 2022-12-29 16:25 | disposition home or self-care (01) | DRG 56 ==
LOC: ED 14:37 → EDINP 18:15 → 2S 21:01

== ENCOUNTER 2023-04-27 09:13 | Inpatient (IN) ==
--- NOTE | 2023-04-27 10:09 | Emergency Department Note ---
Impression & Plan Generalized weakness, Abdominal pain, COVID-19, Chest congestion ED Provider Note HISTORY OF PRESENT ILLNESS: Patient is an 87-year-old male presenting with congestion and abdominal pain. Patient reports that he developed generalized abdominal pain starting last night. States that the pain is around the entirety of his abdomen. He states that he feels like he has to go to the bathroom but cannot. He reports he did have a bowel movement yesterday. He denies any fevers. Reports nausea but no vomiting. Denies any diarrhea. He also reports that he has been having nasal congestion and a cough for the last week. He denies any fevers. Reports that he feels very congested and he cannot breathe through his nose. He reports a cough productive of white sputum. Denies any recent sick contact exposures. Denies any recent travel. Abdominal surgical history significant for an appendectomy. States that he is feels very weak and has been unable to get up and get around at home. ROS: as above PHYSICAL EXAM: Constitutional: Patient appears in no acute distress. HENT: Head: Normocephalic and atraumatic. Eyes: EOMI, PERRL Mouth/Throat: Mucous membranes moist. Neck: Trachea midline. Neck supple. Cardiovascular: RRR, No murmurs, rubs or gallops. Intact distal pulses. Pulmonary/Chest: No respiratory distress. Breath sounds clear and equal bilaterally. No wheezes or rales. Abdominal: Abdomen soft, no rebound or guarding. Generalized tenderness to palpation. Musculoskeletal: No edema, tenderness or deformity noted. Skin: Warm and dry. No rash, erythema, pallor or cyanosis Psychiatric: Appropriate mood and affect for situation. Neurological: Alert and keenly responsive. CN II-XII grossly intact, moving all extremities equally and fully. Patient does have some right-sided weakness which she states is from a previous stroke MDM: - Vitals signs showed tachycardia. - History obtained via patient. Patient presents with congestion and abdominal pain. Patient reports that he developed generalized abdominal pain starting last night. The pain is around the entirety of his abdomen. Feels like he has to go to the bathroom but cannot. He had a bowel movement yesterday. Denies any fevers. Ports ports nausea but no vomiting. He states that he is also been having nasal congestion and cough for the last week. Denies any fevers at home. He reports feeling very congested and states he cannot breathe through his nose. He had a cough productive of white sputum. He states that he feels very weak and has been unable to get up and around at home - Chronic conditions affecting care: CVA; DM-2; Paroxysmal Afib; HTN; HLD - Differential diagnoses include, but are not limited to: Cholecystitis; small bowel obstruction; viral syndrome; pneumonia; UTI; ACS; ischemic colitis - Order placed for continuous cardiac monitoring. At this time, monitor showed rate of 100 bpm with normal sinus rhythm, per my interpretation. - External medical records reviewed. Discharge summary dated 12/29/2022 was reviewed. Patient had been admitted for chest pain and worsening dysarthria. His workup for chest pain was grossly unremarkable. - EKG reviewed by myself showed normal sinus rhythm. Rate 92 bpm. QTc 551. No acute ischemic changes. Noted have a prolonged QT at 446 - Laboratory workup interpreted by myself showed normal WBC; stable electrolytes other than hypocalcemia; normal troponin; normal lipase - Viral panel positive for COVID-19 - CXR negative for pneumonia, per my interpretation. Radiology did note a right suprahilar could be a pulmonary nodule. - CT abdomen/pelvis wo contrast negative for bowel obstruction. Noted to have small peritoneal/omental nodules which are highly suspicious for neoplastic processes. - Discussed results with patient. He does feel too weak to go home to care for himself. His symptoms are likely secondary to his COVID infection. Will admit to the hospitalist service for observation and PT OT/assessment - Discussion was had with certified social workers in health care about patient's case and need for admission - Hospitalist consulted for admission - Patient admitted to [facility] Hospitalist service for further evaluation and management. ASSESSMENT AND PLAN: Diagnosis: generalized weakness; abdominal pain; COVID-19 infection; chest congestion Plan: admit Past Med/Surg History Medical History (Updated 04/27/23 @ 15:04 by Vannessa Sanford MD) Confusion Acute and chronic respiratory failure with hypoxia Paroxysmal atrial fibrillation Acute exacerbation of chronic obstructive pulmonary disease Acute hypoxemic respiratory failure CVA (cerebral vascular accident) DVT prophylaxis Gout BPH (benign prostatic hyperplasia) Diabetes mellitus, type 2 History of stomach cancer 2017--sx Hearing deficit Hypertension Hyperlipidemia Transient ischemic attack (TIA) 07/2018--no lasting deficits from that mini stroke Stroke 01/20/2019--difficulty swallowing/speech slurred/lost ability to use right hand--[place] [facility] [place] Atrial fibrillation on xarelto Asthma inhaler/nebulizer prn COPD (chronic obstructive pulmonary disease) HTN (hypertension) History of multiple strokes First degree AV block Pneumonia Nasal polyposis difficultly breathing through nose Chronic pansinusitis Dysarthria Dysphagia as late effect of cerebrovascular accident (CVA) has improved Surgical History History of esophagogastroduodenoscopy (EGD) History of appendectomy History of abdominal surgery removal of stomach cancer mass History of tooth extraction most teeth removed History of nasal polypectomy History of bilateral cataract extraction History of prostate surgery Status post insertion of percutaneous endoscopic gastrostomy (PEG) tube History of gastric restrictive surgery Family History Brother Family history of diabetes mellitus Other No family history of adverse response to anesthesia No family history of bleeding disorder Social History Smoking Status: Never smoker Second Hand Exposure: No; Do You Dip or Chew Tobacco: No; Hx Alcohol Use: No Hx Substance Use: No Preferred Language: Greek Communication Ability: Effective Communication Ability Comment: daughter needs to be with pt [employer] Required: No Beliefs That Will Affect Care: None marital status: Current Living Situation: Personal Care Facility Current Living Situation Comment: [place] current occupational status: retired Feels Safe at Home: Yes Assistive Devices: Cane and Walker Allergies Allergies Allergy/AdvReac Type Severity Reaction Status Date / Time No Known Allergies Allergy Verified 02/16/23 09:28 Home Meds Home Medications Medication Instructions Recorded Confirmed docusate sodium 100 mg capsule 100 mg PO QAM 09/11/19 04/27/23 (Colace) atorvastatin 20 mg tablet 10 mg PO QAM 11/14/19 04/27/23 insulin glargine 100 unit/mL (3 17 unit SC HS 12/04/19 04/27/23 mL) subcutaneous pen (Lantus Solostar U-100 Insulin) sennosides 8.6 mg tablet 17.2 mg PO .MIDDAY 10/11/20 04/27/23 amlodipine 10 mg tablet 10 mg PO QAM 01/24/21 04/27/23 insulin aspart U-100 100 unit/mL 1 sliding scale dose subcut 12/28/22 04/27/23 subcutaneous cartridge (Novolog USEASDIRECTD PenFill U-100 Insulin aspart) warfarin 2.5 mg tablet 2.5 mg PO DIRECTED 12/28/22 04/27/23 Mucinex 1 tab PO DAILY PRN congestion 04/27/23 04/27/23 metoprolol succinate 25 mg 25 mg PO .MIDDAY 04/27/23 04/27/23 tablet,extended release 24 hr Previous Rx's Medication Instructions Recorded fluticasone 250 mcg-salmeterol 50 1 inh inhalation BID #90 puffs 11/28/22 mcg/dose blistr powdr for inhalation (Wixela Inhub) Results & Data (ED) Vital Signs Vital Signs - 24 hr 04/27/23 09:35 04/27/23 10:22 04/27/23 10:24 Temperature 36.8 C Temperature Source Oral Pulse Rate 93 H 93 H Pulse Rate from SpO2 Sensor Respiratory Rate 18 Blood Pressure 105/72 Blood Pressure Mean 83 Pulse Oximetry 95 94 Oxygen Delivery Method Room Air Room Air Sepsis Recent Fever Within 48 Hours No Sepsis New/Unexplained Change in Mental Status No Sepsis Action Taken by Nursing No Action Required 04/27/23 12:40 04/27/23 14:32 Temperature Temperature Source Pulse Rate 92 H 105 H Pulse Rate from SpO2 Sensor 92 H Respiratory Rate 14 Blood Pressure 141/82 H Blood Pressure Mean 101 Pulse Oximetry 94 Oxygen Delivery Method Sepsis Recent Fever Within 48 Hours Sepsis New/Unexplained Change in Mental Status Sepsis Action Taken by Nursing Laboratory Data 04/27/23 09:33 04/27/23 09:33 Lab Results 04/27/23 04/27/23 04/27/23 Range/Units 09:33 10:50 Unknown WBC 6.92 (4.8-10.8) K/ul RBC 4.85 (4.70-6.10) M/uL Hgb 13.3 L (14.0-18.0) g/dl Hct 40.1 L (42.0-52.0) % MCV 82.7 (80.0-100.0) fL MCH 27.4 (25.0-34.0) pg MCHC 33.2 (32.0-36.0) g/dL RDW Std Deviation 43.9 (36.4-46.3) fL RDW Coeff of Mainor 14.6 H (11.5-14.5) % Plt Count 253 (130-400) K/uL MPV 10.5 (9.4-12.4) fL Immature Gran % (Auto) 0.3 % Neut % (Auto) 74.0 % Lymph % (Auto) 5.9 % Sauk % (Auto) 16.3 % Eos % (Auto) 2.9 % Baso % (Auto) 0.6 % Neut # (Auto) 5.12 (1.40-6.50) K/uL Lymph # (Auto) 0.41 L (1.20-3.40) K/uL Sauk # (Auto) 1.13 H (0.11-0.59) K/uL Eos # (Auto) 0.20 (0.00-0.50) K/uL Baso # (Auto) 0.04 (0.00-0.20) K/uL Immature Gran # (Auto) 0.02 (0.01-0.20) K/uL PT 23.8 H (9.0-12.0) Seconds INR 2.3 H (0.9-1.1) Sodium 140 (136-145) mmol/L Potassium 3.8 (3.5-5.1) mmol/L Chloride 107 (98-107) mmol/L Carbon Dioxide 28 (21-32) mmol/L Anion Gap 5 (3-11) BUN 17 (6-23) mg/dl Creatinine 1.02 (0.6-1.4) mg/dl Est Cr Clr Drug Dosing 54.3 ml/min Est GFR ( Amer) 76.2 ml/min Est GFR (Non-Af Amer) 65.8 ml/min BUN/Creatinine Ratio 16.7 (10-20) Glucose 93 (70-99(Fasting)) mg/dl Lactate 0.9 (0.4-2.0) mmol/L Calcium 8.5 L (8.6-10.3) mg/dl Magnesium 1.8 (1.7-2.4) mg/dl Total Bilirubin 1.1 H (0.2-1.0) mg/dl AST 13 (13-39) U/L ALT 12 (7-52) U/L Alkaline Phosphatase 42 (34-104) U/L Troponin I High Sens 17.0 (0-20) pg/ml Total Protein 6.2 (6.0-8.3) gm/dl Albumin 3.8 (3.4-5.0) gm/dl Globulin 2.4 L (2.5-4.0) gm/dl Albumin/Globulin Ratio 1.6 (0.9-2) Lipase 8 L (11-82) U/L Adenovirus (PCR) Not Detected (NotDetected) B. pertussis DNA (PCR) Not Detected (NotDetected) B.parapertussis DNA PCR Not Detected (NotDetected) C. pneumoniae DNA (PCR) Not Detected (NotDetected) Coronavirus OC43 (PCR) Not Detected (NotDetected) Coronavirus HKU1 (PCR) Not Detected (NotDetected) Coronavirus 229E (PCR) Not Detected (NotDetected) SARS-CoV-2 (PCR) DETECTED A* (NotDetected) Coronavirus NL63 (PCR) Not Detected (NotDetected) Human Metapneumovir PCR Not Detected (NotDetected) Influenza Type A (PCR) Not Detected (NotDetected) Influenza Type B (PCR) Not Detected (NotDetected) M. pneumoniae (PCR) Not Detected (NotDetected) Parainfluenza 1 (PCR) Not Detected (NotDetected) Parainfluenza 2 (PCR) Not Detected (NotDetected) Parainfluenza 3 (PCR) Not Detected (NotDetected) Parainfluenza 4 (PCR) Not Detected (NotDetected) RSV (PCR) Not Detected (NotDetected) Entero/Rhino (PCR) Not Detected (NotDetected) Imaging Data Radiologist's Impression: Abdomen/Pelvis CT 04/27/23 10:05 CT OF THE ABDOMEN AND PELVIS WITHOUT CONTRAST CLINICAL HISTORY: Generalized abdominal pain. COMPARISON STUDY: CT of the abdomen pelvis December 05, 2019 and KUB April 26, 2021. TECHNIQUE: Axial images of the abdomen and pelvis were obtained without IV contrast. Images were reviewed in the axial, sagittal, and coronal planes. Automated exposure control was utilized for the study. A dose lowering technique was utilized adhering to the principles of ALARA. FINDINGS: Mild groundglass opacities are noted within the visualized lower lungs. No pneumatosis, free air or portal venous gas is present. A 2 mm calculus within the upper pole the left kidney is present. There are no ureteral calculi. There is no hydronephrosis. The prostate is enlarged. There is no evidence for a bowel obstruction. Evaluation of the abdomen and pelvis is suboptimal on this unenhanced exam. Liver, spleen, adrenal glands and pancreas are unremarkable. There is no biliary or pancreatic ductal dilatation. Small bowel anastomosis is noted. The appendix is not visualized. There has been interval development of multiple peritoneal/omental nodules, including a 1.1 cm left lower quadrant omental nodule on image 244. There is a 1.2 cm peritoneal nodule within the left hemipelvis on image 280. These are suggestive of peritoneal implants. There is trace ascites. No enlarged lymph nodes are identified. No suspicious lesions within visualized skeletal structures are present. Water attenuation left lower pole renal lesion favors a cyst. IMPRESSION: 1. No bowel obstruction. No bowel wall thickening on unenhanced exam. 2. Interval development of multiple small peritoneal/omental nodules measuring up to 1.2 cm. These are highly suspicious for a neoplastic process and suggest peritoneal implants. Trace ascites. The primary tumor is not identified on this exam. Oncology consultation is recommended. If not recently performed, colonoscopy might be considered. 3. Mild groundglass opacities within the lower lungs suggestive of an infectious process. 4. 2 mm left renal calculus. No ureteral calculi. No hydronephrosis. ACT 112: Positive. There are findings on this exam that require communication between the performing entity and the patient following Patient Test Result Information Act ([place] Act 112) guidelines. Electronically signed by: Arvind Rojo M.D. 04/27/2023 11:20 AM Chest X-Ray 04/27/23 10:05 XR chest 1V portable HISTORY: 87 years-old Male cough; shortness of breath acute cough or shortness of breath COMPARISON: 12/28/2022 TECHNIQUE: AP view of the chest FINDINGS: Ill-defined nodular opacity of the suprahilar right lung. Cardiac mediastinal and hilar silhouettes are within normal limits. No pneumothorax, pleural effusion or airspace consolidation. The bones appear grossly intact. Left shoulder rotator cuff calcific tendinosis. IMPRESSION: 1. No airspace consolidation typical for pneumonia. 2. Ill-defined nodular right suprahilar opacity may be secondary to summation density versus pulmonary nodule. Attention at follow-up recommended. ACT 112: Negative or not required by law. The above report was generated using voice recognition software. It may contain grammatical, syntax or spelling errors. Electronically signed by: Taiwo Naqvi M.D. 04/27/2023 10:55 AM Discharge Plan Visit Data Chief Complaint: Abdominal Pain Stated Complaint: AB PAIN ED Provider: Vannessa Sanford Discharge Problem: Generalized weakness, Abdominal pain, COVID-19, Chest congestion Forms Stand Alone Forms: My [employer] Prescriptions Prescriptions: No Action fluticasone propion-salmeterol [Wixela Inhub] 250-50 mcg/dose blister with device 1 inh inhalation BID Qty: 90 3RF sennosides 8.6 mg tablet 17.2 mg PO .MIDDAY docusate sodium [Colace] 100 mg Capsule 100 mg PO QAM atorvastatin 20 mg Tablet 10 mg PO QAM insulin glargine [Lantus Solostar U-100 Insulin] 100 unit/mL (3 mL) insulin pen 17 unit SC HS warfarin 2.5 mg Tablet 2.5 mg PO DIRECTED Rx Instructions: as direcred by anticoagulation clinic per daughter- .5 everyday currently insulin aspart U-100 [Novolog PenFill U-100 Insulin] 100 unit/mL Cartridge 1 sliding scale dose SUBCUT USEASDIRECTD metoprolol succinate 25 mg tablet extended release 24 hr 25 mg PO .MIDDAY Mucinex 1 tab PO DAILY PRN (Reason: congestion ) amlodipine 10 mg Tablet 10 mg PO QAM Referrals Referrals: Taime Portillo PA-C [Primary Care Provider] -
[2023-04-27 10:22] LABS: Basophils # (auto) 0.04 K/uL (0.00-0.20); Basophils % (auto) 0.6 %; Eosinophils % (auto) 2.9 %; Hematocrit (blood only) 40.1 % (42.0-52.0); Hemoglobin 13.3 g/dl (14.0-18.0); Immature Granulocytes # (auto) 0.02 K/uL (0.01-0.20); Immature Granulocytes % (auto) 0.3 %; Lymphocytes # (auto) 0.41 K/uL (1.20-3.40); Lymphocytes % (auto) 5.9 %; Mean Corpuscular Hemoglobin 27.4 pg (25.0-34.0); Mean Corpuscular Hgb Conc 33.2 g/dL (32.0-36.0); Mean Corpuscular Volume 82.7 fL (80.0-100.0); Mean Platelet Volume 10.5 fL (9.4-12.4); Monocytes # (auto) 1.13 K/uL (0.11-0.59); Monocytes % (auto) 16.3 %; Neutrophils # (auto) 5.12 K/uL (1.40-6.50); Platelet Count 253 K/uL (130-400); RDW Coefficient of Variation 14.6 % (11.5-14.5); RDW Standard Deviation 43.9 fL (36.4-46.3); Red Blood Count 4.85 M/uL (4.70-6.10); White Blood Count 6.92 K/ul (4.8-10.8)
[2023-04-27 10:48] LABS: Albumin Globulin Ratio 1.6 (0.9-2); Albumin Level 3.8 gm/dl (3.4-5.0); BUN Creatinine Ratio 16.7 (10-20); Bilirubin,Total 1.1 mg/dl (0.2-1.0); Calcium 8.5 mg/dl (8.6-10.3); Creatinine Clr Calc Pharmacy 54.3 ml/min; Est GFR (African American) 76.2 ml/min; Est GFR (Non-African American) 65.8 ml/min; Globulin 2.4 gm/dl (2.5-4.0); Magnesium 1.8 mg/dl (1.7-2.4); Potassium 3.8 mmol/L (3.5-5.1); Total Protein 6.2 gm/dl (6.0-8.3)
[2023-04-27 10:50] LABS: INR 2.3 (0.9-1.1); Prothrombin Time 23.8 Seconds (9.0-12.0)
--- NOTE | 2023-04-27 10:57 | XRay Report ---
XR chest 1V portable HISTORY: 87 years-old Male cough; shortness of breath acute cough or shortness of breath COMPARISON: 12/28/2022 TECHNIQUE: AP view of the chest FINDINGS: Ill-defined nodular opacity of the suprahilar right lung. Cardiac mediastinal and hilar silhouettes a re within normal limits. No pneumothorax, pleural effusion or airspace consolidation. The bones appea r grossly intact. Left shoulder rotator cuff calcific tendinosis. IMPRESSION: 1. No airspace consolidation typical for pneumonia. 2. Ill-defined nodular right suprahilar opacity may be secondary to summation density versus pulmonar y nodule. Attention at follow-up recommended. ACT 112: Negative or not required by law. The above report was generated using voice recognition software. It may contain grammatical, syntax o r spelling errors. Electronically signed by: Taiwo Naqvi M.D. 04/27/2023 10:55 AM
[2023-04-27 11:22] LABS: Adenovirus PCR Not Detected (NotDetected); Bordetella parapertussis PCR Not Detected (NotDetected); Bordetella pertussis PCR Not Detected (NotDetected); Chlamydia pneumoniae PCR Not Detected (NotDetected); Coronavirus 229E PCR Not Detected (NotDetected); Coronavirus HKU1 PCR Not Detected (NotDetected); Coronavirus NL63 PCR Not Detected (NotDetected); Coronavirus OC43PCR Not Detected (NotDetected); Human Metapneumovirus PCR Not Detected (NotDetected); Influenza A PCR Not Detected (NotDetected); Influenza B PCR Not Detected (NotDetected); Mycoplasma pneumoniae PCR Not Detected (NotDetected); Parainfluenza Virus 1 PCR Not Detected (NotDetected); Parainfluenza Virus 2 PCR Not Detected (NotDetected); Parainfluenza Virus 3 PCR Not Detected (NotDetected); Parainfluenza Virus 4 PCR Not Detected (NotDetected); Respiratory Syncytial VirusPCR Not Detected (NotDetected); Rhinovirus/Enterovirus PCR Not Detected (NotDetected)
--- NOTE | 2023-04-27 11:22 | CT Scan Report ---
CT OF THE ABDOMEN AND PELVIS WITHOUT CONTRAST CLINICAL HISTORY: Generalized abdominal pain. COMPARISON STUDY: CT of the abdomen pelvis December 05, 2019 and KUB April 26, 2021. TECHNIQUE: Axial images of the abdomen and pelvis were obtained without IV contrast. Images were revi ewed in the axial, sagittal, and coronal planes. Automated exposure control was utilized for the cuong dy. A dose lowering technique was utilized adhering to the principles of ALARA. FINDINGS: Mild groundglass opacities are noted within the visualized lower lungs. No pneumatosis, gabby e air or portal venous gas is present. A 2 mm calculus within the upper pole the left kidney is prese nt. There are no ureteral calculi. There is no hydronephrosis. The prostate is enlarged. There is no evidence for a bowel obstruction. Evaluation of the abdomen and pelvis is suboptimal on this unenhanc ed exam. Liver, spleen, adrenal glands and pancreas are unremarkable. There is no biliary or pancreat ic ductal dilatation. Small bowel anastomosis is noted. The appendix is not visualized. There has bee n interval development of multiple peritoneal/omental nodules, including a 1.1 cm left lower quadrant omental nodule on image 244. There is a 1.2 cm peritoneal nodule within the left hemipelvis on image 280. These are suggestive of peritoneal implants. There is trace ascites. No enlarged lymph nodes ar e identified. No suspicious lesions within visualized skeletal structures are present. Water attenuat ion left lower pole renal lesion favors a cyst. IMPRESSION: 1. No bowel obstruction. No bowel wall thickening on unenhanced exam. 2. Interval development of multiple small peritoneal/omental nodules measuring up to 1.2 cm. These ar e highly suspicious for a neoplastic process and suggest peritoneal implants. Trace ascites. The prim esthela tumor is not identified on this exam. Oncology consultation is recommended. If not recently perfo rmed, colonoscopy might be considered. 3. Mild groundglass opacities within the lower lungs suggestive of an infectious process. 4. 2 mm left renal calculus. No ureteral calculi. No hydronephrosis. ACT 112: Positive. There are findings on this exam that require communication between the performing entity and the patient following Patient Test Result Information Act ([place] Act 112) guidelines. Electronically signed by: Arvind Rojo M.D. 04/27/2023 11:20 AM
[2023-04-27 11:25] LABS: Coronavirus CoV-2 (COVID19)PCR DETECTED (NotDetected)
--- NOTE | 2023-04-27 12:48 | Electrocardiogram Report ---
Test Reason : Blood Pressure : / mmHG Vent. Rate : 092 BPM Atrial Rate : 092 BPM P-R Int : 304 ms QRS Dur : 090 ms QT Int : 446 ms P-R-T Axes : 077 012 061 degrees QTc Int : 551 ms Poor data quality, interpretation may be adversely affected Sinus rhythm with 1st degree A-V block Poor R wave progression, consider anterior [place] vs. lead placement vs. LVH Prolonged QT Abnormal ECG When compared with ECG of 16-FEB-2023 09:35, (unconfirmed) QT has lengthened Confirmed by Bong Lima ([id number]) on 04/27/2023 12:47:34 PM Referred By: REFERRED SELF Confirmed By:Bong Lima
--- NOTE | 2023-04-27 14:22 | History & Physical Report ---
Date of Service April 27, 2023 Assessment & Plan (1) COVID-19: Plan: Patient is 87 year old male with PMH paroxysmal atrial fibrillation anticoagulated on Coumadin, CVA, HTN, DM II, first-degree AV block, COPD presented to ER with complaint of congestion X 1 week and abdominal pain x 1 day No further abdominal pain reported. Patient very concerned about nasal congestion and inability to breathe through nose And ER afebrile, no hypoxia + SARS-CoV-2 PCR CXR: No airspace consolidation typical for pneumonia. Ill-defined nodular right suprahilar opacity may be secondary to summation density versus pulmonary nodule. Attention at follow-up recommended. Airborne isolation Supplemental oxygen as needed, however not currently hypoxic Gentle IVF Duonebs as needed Incentive spirometry, flutter valve Flonase Mucinex CBC,BMP in am (2) Generalized weakness: Plan: Generalized weakness likely secondary to underlying COVID-19 infection Fall precautions PT/OT (3) Abnormal computed tomography angiography (CTA) of abdomen and pelvis: Plan: CT ABD/PELVIS: 1. No bowel obstruction. No bowel wall thickening on unenhanced exam. 2. Interval development of multiple small peritoneal/omental nodules measuring up to 1.2 cm. These are highly suspicious for a neoplastic process and suggest peritoneal implants. Trace ascites. The primary tumor is not identified on this exam. Oncology consultation is recommended. If not recently performed, colonoscopy might be considered. 3. Mild groundglass opacities within the lower lungs suggestive of an infectious process. 4. 2 mm left renal calculus. No ureteral calculi. No hydronephrosis. Attempted to speak to patient about CT findings today, however patient only concerned about nasal congestion and wanting more blankets so unable to have complete conversation today Will need rediscussed and further evaluation (4) Prolonged Q-T interval on ECG: Plan: QTc prolonged on EKG today History of first-degree AV block Repeat EKG in a.m. (5) COPD (chronic obstructive pulmonary disease): Plan: History of COPD No current wheezing. Currently positive for COVID-19 Continue home inhalers DuoNebs as needed (6) Paroxysmal atrial fibrillation: Plan: Anticoagulated on Coumadin Current sinus rhythm INR: 2.3 Continue Coumadin, metoprolol succinate INR in a.m. (7) CVA (cerebral vascular accident): Plan: History of CVA with residual right-sided weakness, dysarthria Continue atorvastatin (8) HTN (hypertension): Plan: Continue amlodipine (9) Diabetes mellitus, type 2: Plan: Insulin-dependent diabetes A1c: 8.1 on 12/29/2022 Continue home basal insulin NovoLog sliding scale per protocol DVT Prophylaxis On Coumadin and INR therapeutic Full Code as per discussion with pt Follows with Radha Portillo PA-C at [facility] for routine care Pt was seen and care coordinated with Dr Bowen. See addendum History of Present Illness Chief Complaint: congestion, abdominal pain Primary Care Provider: Tamie Portillo PA-C Patient is 87 year old male with PMH paroxysmal atrial fibrillation anticoagulated on Coumadin, CVA, HTN, DM II, first-degree AV block, COPD presented to ER with complaint of congestion and abdominal pain. History obtained from patient as well as inpatient chart review. Patient with history of stroke with some residual right-sided weakness and dysarthria. Patient is able to ambulate. Lives home alone. States this week has had nasal congestion and cannot breathe through his nose. Also complains of cough. States is coughing up white phlegm. States last night had some nausea and diffuse abdominal discomfort. States was constipated but had BM yesterday and states BM today was loose. Feels chills, unsure if had fever. Patient very concerned about nasal congestion and difficulty breathing through nose. Denies any current abdominal discomfort. He states he has been feeling weak. Denies hematemesis, melena, hematochezia, GORDON, dizziness, syncope, CP, SOB, palpitations, hemoptysis, sore throat, paresthesias, extremity edema, rashes, urinary symptoms. Allergies Allergy/AdvReac Type Severity Reaction Status Date / Time No Known Allergies Allergy Verified 02/16/23 09:28 Home Medications Medication Instructions Recorded Confirmed Type docusate sodium 100 mg capsule 100 mg PO QAM 09/11/19 05/04/23 History (Colace) atorvastatin 20 mg tablet 10 mg PO QAM 11/14/19 05/04/23 History sennosides 8.6 mg tablet 17.2 mg PO .MIDDAY 10/11/20 05/04/23 History amlodipine 10 mg tablet 10 mg PO QAM 01/24/21 05/04/23 History fluticasone 250 mcg-salmeterol 50 1 inh inhalation BID #90 puffs 11/28/22 05/04/23 Rx mcg/dose blistr powdr for inhalation (Wixela Inhub) insulin aspart U-100 100 unit/mL 1 sliding scale dose subcut 12/28/22 05/04/23 History subcutaneous cartridge (Novolog USEASDIRECTD PenFill U-100 Insulin aspart) warfarin 2.5 mg tablet 2.5 mg PO DIRECTED 12/28/22 05/04/23 History Mucinex 1 tab PO DAILY PRN congestion 04/27/23 05/04/23 History metoprolol succinate 25 mg 25 mg PO .MIDDAY 04/27/23 05/04/23 History tablet,extended release 24 hr insulin glargine 100 unit/mL (3 8 unit (0.08 mL) SC HS #15 mL 04/30/23 05/04/23 Rx mL) subcutaneous pen (Lantus Solostar U-100 Insulin) Past Med/Surg History Medical History Paroxysmal atrial fibrillation Confusion Acute and chronic respiratory failure with hypoxia Acute exacerbation of chronic obstructive pulmonary disease Acute hypoxemic respiratory failure CVA (cerebral vascular accident) DVT prophylaxis Gout BPH (benign prostatic hyperplasia) Diabetes mellitus, type 2 History of stomach cancer 2017--sx Hearing deficit Hypertension Hyperlipidemia Transient ischemic attack (TIA) 07/2018--no lasting deficits from that mini stroke Stroke 01/20/2019--difficulty swallowing/speech slurred/lost ability to use right hand--follows with Dr. Jerri Hayden @ [facility] – [place] Neurology Atrial fibrillation on xarelto Asthma inhaler/nebulizer prn COPD (chronic obstructive pulmonary disease) HTN (hypertension) History of multiple strokes First degree AV block Pneumonia Nasal polyposis difficultly breathing through nose Chronic pansinusitis Dysarthria Dysphagia as late effect of cerebrovascular accident (CVA) has improved Surgical History History of esophagogastroduodenoscopy (EGD) History of appendectomy History of abdominal surgery removal of stomach cancer mass History of tooth extraction most teeth removed History of nasal polypectomy History of bilateral cataract extraction History of prostate surgery Status post insertion of percutaneous endoscopic gastrostomy (PEG) tube History of gastric restrictive surgery Family History Brother Family history of diabetes mellitus Other No family history of adverse response to anesthesia No family history of bleeding disorder Social History Smoking Status: Never smoker Second Hand Exposure: No; Do You Dip or Chew Tobacco: No; Hx Alcohol Use: No Hx Substance Use: No Preferred Language: Swedish Communication Ability: Impaired Communication Ability Comment: daughter needs to be with pt Farm Adviser Required: No Beliefs That Will Affect Care: None marital status: Current Living Situation: Alone Current Living Situation Comment: [place] current occupational status: retired Other Information That Helps Us Care for You: No Feels Safe at Home: No Is there a partner from a previous relationship who is making you feel unsafe now?: No Any Concerns about Your Family Situation: No Would You Like to Speak to Someone About Your Situation: No Safety Concerns: Afraid for Self Assistive Devices: Cane, Walker and Other Review of Systems Review of Systems: All systems reviewed & are unremarkable except as noted in HPI & below Physical Exam Physical Exam: General: no acute distress, WDWN elderly male Head: normocephalic, atraumatic Eyes: PERRL, conjunctiva non-injected, anicteric ENT: normal inspection external ears, +rhinorrhea and turbinate edema, mucous membranes mildly dry Neck: supple, trachea midline Lungs: clear, no respiratory distress, no wheezing/rhonchi/rales CV: RRR, no murmur, no JVD, no pretibial edema Abd: normal BS, soft, non-tender Ext: no cyanosis, no calf tenderness Neuro: Alert, oriented to person, place. Unsure of date. Speech somewhat hard to understand (reported baseline), +right sided weakness (reported from prior stroke) Skin: warm, dry Results & Data Results & Data Vital Signs (Past 12 Hours) Vital Signs Temp Pulse Resp BP Pulse Ox O2 Del Method 04/27/23 12:40 92 H 14 141/82 H 94 04/27/23 10:24 93 H 04/27/23 10:22 94 Room Air 04/27/23 09:35 36.8 C 93 H 18 105/72 95 Room Air Laboratory Results Short CBC 04/27/23 Range/Units 09:33 WBC 6.92 (4.8-10.8) K/ul Hgb 13.3 L (14.0-18.0) g/dl Hct 40.1 L (42.0-52.0) % Plt Count 253 (130-400) K/uL BMP 04/27/23 09:33 Sodium 140 Potassium 3.8 Chloride 107 Carbon Dioxide 28 BUN 17 Creatinine 1.02 Glucose 93 Calcium 8.5 L Liver Function 04/27/23 Range/Units 09:33 Total Bilirubin 1.1 H (0.2-1.0) mg/dl AST 13 (13-39) U/L ALT 12 (7-52) U/L Alkaline Phosphatase 42 (34-104) U/L Albumin 3.8 (3.4-5.0) gm/dl Diagnostic Findings Abdomen/Pelvis CT 04/27/23 10:05 CT OF THE ABDOMEN AND PELVIS WITHOUT CONTRAST CLINICAL HISTORY: Generalized abdominal pain. COMPARISON STUDY: CT of the abdomen pelvis December 05, 2019 and KUB April 26, 2021. TECHNIQUE: Axial images of the abdomen and pelvis were obtained without IV contrast. Images were reviewed in the axial, sagittal, and coronal planes. Automated exposure control was utilized for the study. A dose lowering technique was utilized adhering to the principles of ALARA. FINDINGS: Mild groundglass opacities are noted within the visualized lower lungs. No pneumatosis, free air or portal venous gas is present. A 2 mm calculus within the upper pole the left kidney is present. There are no ureteral calculi. There is no hydronephrosis. The prostate is enlarged. There is no evidence for a bowel obstruction. Evaluation of the abdomen and pelvis is suboptimal on this unenhanced exam. Liver, spleen, adrenal glands and pancreas are unremarkable. There is no biliary or pancreatic ductal dilatation. Small bowel anastomosis is noted. The appendix is not visualized. There has been interval development of multiple peritoneal/omental nodules, including a 1.1 cm left lower quadrant o mental nodule on image 244. There is a 1.2 cm peritoneal nodule within the left hemipelvis on image 280. These are suggestive of peritoneal implants. There is trace ascites. No enlarged lymph nodes are identified. No suspicious lesions within visualized skeletal structures are present. Water attenuation left lower pole renal lesion favors a cyst. IMPRESSION: 1. No bowel obstruction. No bowel wall thickening on unenhanced exam. 2. Interval development of multiple small peritoneal/omental nodules measuring up to 1.2 cm. These are highly suspicious for a neoplastic process and suggest peritoneal implants. Trace ascites. The primary tumor is not identified on this exam. Oncology consultation is recommended. If not recently performed, colonoscopy might be considered. 3. Mild groundglass opacities within the lower lungs suggestive of an infectious process. 4. 2 mm left renal calculus. No ureteral calculi. No hydronephrosis. ACT 112: Positive. There are findings on this exam that require communication between the performing entity and the patient following Patient Test Result Information Act ([place] Act 112) guidelines. Electronically signed by: Arvind Rojo M.D. 04/27/2023 11:20 AM Chest X-Ray 04/27/23 10:05 XR chest 1V portable HISTORY: 87 years-old Male cough; shortness of breath acute cough or shortness of breath COMPARISON: 12/28/2022 TECHNIQUE: AP view of the chest FINDINGS: Ill-defined nodular opacity of the suprahilar right lung. Cardiac mediastinal and hilar silhouettes are within normal limits. No pneumothorax, pleural effusion or airspace consolidation. The bones appear grossly intact. Left shoulder rotator cuff calcific tendinosis. IMPRESSION: 1. No airspace consolidation typical for pneumonia. 2. Ill-defined nodular right suprahilar opacity may be secondary to summation density versus pulmonary nodule. Attention at follow-up recommended. ACT 112: Negative or not required by law. The above report was generated using voice recognition software. It may contain grammatical, syntax or spelling errors. Electronically signed by: Taiwo Naqvi M.D. 04/27/2023 10:55 AM ECG Additional Comments: Sinus rhythm, rate 92, first-degree AV block Supervising Physician Co-Signing Physician Notes Pt was seen and examined. Agreed with Elizabeth MCGHEE exam, assessment and plan. 87 year old male with PMH paroxysmal atrial fibrillation anticoagulated on Coumadin, CVA, HTN, DM II, first-degree AV block, COPD presented to ER with complaint of congestion and abdominal pain. Pt said that in the last few days that he has been feeling congested. He said this symptoms worsening where he is having difficulty to breath to his nose. He has been coughing up white phlegm. He said that he feels weak with low energy. Denies hematemesis, melena, hematochezia, GORDON, dizziness, syncope, CP, SOB, palpitations, hemoptysis, sore throat, paresthesias, extremity edema, rashes, urinary symptoms. Tested positive for Covid 19. CXR showed no airspace consolidation typical for pneumonia. Ill- defined nodular right suprahilar opacity may be secondary to summation density versus pulmonary nodule. He does not meet criteria for steroid and Remdesir sin ce pt saturated well on RA. CT abd/pelvis showed no bowel obstruction. No bowel wall thickening on unenhanced exam. Interval development of multiple small peritoneal/omental nodules measuring up to 1.2 cm. These are highly suspicious for a neoplastic process and suggest peritoneal implants. Mild groundglass opacities within the lower lungs suggestive of an infectious process. Will do incentive spirometry and flutter valve. Continue airborne precaution. Continue monitor closely. MD Jessi (5) COPD (chronic obstructive pulmonary disease) COPD type: unspecified COPD Qualified Code(s): J44.9 - Chronic obstructive pulmonary disease, unspecified
[2023-04-27] MEDS ORDERED: ACETAMINOPHEN 325 MG TAB PO PRN (16:25)
[2023-04-27] MEDS ORDERED: POLYETHYLENE (MIRALAX) 17 GM PACK PO PRN (16:25)
[2023-04-27] MEDS ORDERED: CARBOHYDRATES FOR HYPOGLYCEMIA PO PRN (16:25)
[2023-04-27] MEDS ORDERED: SODIUM CHLORIDE 0.9% 1,000 ML IV SCH (16:25)
[2023-04-27] MEDS ORDERED: GLUCOSE 10 TAB/TUBE PO PRN (16:25)
[2023-04-27] MEDS ORDERED: ALBUTEROL 0.083% NEBU SOLN 3 ML VIAL NEB PRN (16:25)
[2023-04-27] MEDS ORDERED: PROMETHAZINE HCL 6.25 MG in SODIUM CHLORIDE 0.9% 50 ML IV PRN (16:25)
[2023-04-27] MEDS ORDERED: GLUCOSE 40% GEL 15 GM TUBE PO PRN (16:25)
[2023-04-27] MEDS ORDERED: GLUCAGON FOR INJ 1 MG VIAL SQ PRN (16:25)
[2023-04-27] MEDS ORDERED: DEXTROSE 50% 50 ML SYRINGE IV PRN (16:25)
[2023-04-27] MEDS: INSULIN ASPART PER UNIT CHARGE SC SCH ×2 (17:58→20:34)
[2023-04-27] MEDS: WARFARIN SOD 2.5 MG TAB PO SCH (19:53)
[2023-04-27] MEDS: guaiFENesin 600 MG TABCR PO SCH (19:54)
[2023-04-27] MEDS: METOPROLOL SUCC 25MG EXT REL TAB PO SCH (19:54)
[2023-04-27] MEDS: FLUTICASONE PROPIONATE NA SPR 16 GM BTL SCH (19:55)
[2023-04-27] MEDS: LANTUS PER UNIT CHARGE SQ SCH (20:33)
[2023-04-27 22:28] LABS: Appearance Urine Clear (Clear); Bacteria Urine Automated Negative (Negative); Bilirubin Urine Negative (Negative); Blood Urine Negative (Negative); Color Urine Yellow; Glucose Urine UA Negative (Negative); Ketones Urine 2+ (Negative); Leukocyte Esterase Urine Negative (Negative); Nitrite Urine Negative (Negative); Protein Urine 1+ (Negative); RBC Urine Automated 0-4 /hpf (0-4); Urobilinogen Urine Negative (Negative)
--- NOTE | 2023-04-28 07:17 | Electrocardiogram Report ---
Test Reason : Blood Pressure : / mmHG Vent. Rate : 078 BPM Atrial Rate : 078 BPM P-R Int : 328 ms QRS Dur : 094 ms QT Int : 404 ms P-R-T Axes : 070 016 058 degrees QTc Int : 460 ms Poor data quality, interpretation may be adversely affected Sinus rhythm with sinus arrhythmia with 1st degree A-V block Inferior infarct , age undetermined Abnormal ECG When compared with ECG of 27-APR-2023 10:22, Inferior infarct is now Present QT has shortened Confirmed by Jossue Parks ([id number]) on 04/28/2023 7:17:13 AM Referred By: REFERRED SELF Confirmed By:Reji Parks
[2023-04-28 07:20] LABS: Hematocrit (blood only) 41.9 % (42.0-52.0); Mean Corpuscular Hemoglobin 27.5 pg (25.0-34.0); Mean Corpuscular Hgb Conc 33.4 g/dL (32.0-36.0); Mean Corpuscular Volume 82.2 fL (80.0-100.0); Platelet Count 226 K/uL (130-400); RDW Coefficient of Variation 14.7 % (11.5-14.5); RDW Standard Deviation 44.8 fL (36.4-46.3); White Blood Count 5.67 K/ul (4.8-10.8)
[2023-04-28 07:37] LABS: BUN Creatinine Ratio 15.4 (10-20); Calcium 8.2 mg/dl (8.6-10.3); Creatinine Clr Calc Pharmacy 60.9 ml/min; Est GFR (African American) 87.5 ml/min; Est GFR (Non-African American) 75.5 ml/min; Potassium 3.6 mmol/L (3.5-5.1)
[2023-04-28 08:15] LABS: INR 1.8 (0.9-1.1); Prothrombin Time 19.2 Seconds (9.0-12.0)
[2023-04-28 08:34] LABS: Estimated Average Glucose 166 mg/dl; Hemoglobin A1C 7.4 % (4.5-5.6)
[2023-04-28] MEDS: guaiFENesin 600 MG TABCR PO SCH ×2 (09:05→21:00)
[2023-04-28] MEDS: amLODIPine BESYLATE 5 MG TAB PO SCH (09:06)
[2023-04-28] MEDS: DOCUSATE SODIUM 100 MG CAP PO SCH (09:06)
[2023-04-28] MEDS: ATORVASTATIN 10 MG TAB PO SCH (09:06)
[2023-04-28] MEDS: FLUTICASONE PROPIONATE NA SPR 16 GM BTL SCH (09:06)
[2023-04-28] MEDS: FLUTICASONE/VILANTEROL 100/25MCG 14 PUFFS/INHALER INH SCH (09:07)
[2023-04-28] MEDS: LANTUS PER UNIT CHARGE SQ SCH ×2 (09:14→20:53)
[2023-04-28] MEDS: INSULIN ASPART PER UNIT CHARGE SC SCH ×4 (09:14→20:53)
--- NOTE | 2023-04-28 10:42 | CT Scan Report ---
CT chest diagnostic wo con CT DOSE: 371.25 mGy.cm HISTORY: Abnormal chest x-ray. Right nodular suprahilar opacity TECHNIQUE: Multiaxial CT images of the chest were performed without contrast. A dose lowering techni que was utilized adhering to the principles of ALARA. COMPARISON: Chest 04/27/2023. Abdomen and pelvis CT 04/27/2023. Chest CT 04/29/2021. FINDINGS: Mild bronchial wall thickening. No pneumothorax. No pleural effusions. No evidence for a ri ght suprahilar opacity or nodule. There are patchy bibasilar densities most pronounced within the lef t lower lobe. This favors a low-grade pneumonitis. No acute fractures. Mild mediastinal and mild bila teral hilar lymphadenopathy has slightly progressed. The heart is enlarged. Limited views the upper a bdomen demonstrate normal liver, spleen, and adrenal glands. There is a small hiatus hernia. Normal c aliber esophagus. Mild calcified plaque within the normal caliber thoracic aorta. There are severe co ronary artery calcifications noted. IMPRESSION: 1. Small patchy bibasilar densities. This favors a mild pneumonitis. 2. No right suprahilar nodule identified. 3. Mild mediastinal and bilateral hilar lymphadenopathy has slightly progressed. ACT 112: Negative or not required by law. Electronically signed by: Anderson Meehan M.D. 04/28/2023 10:39 AM
[2023-04-28] MEDS: METOPROLOL SUCC 25MG EXT REL TAB PO SCH (11:25)
--- NOTE | 2023-04-28 13:43 | Hospitalist Progress Note ---
Date of Service April 28, 2023 Assessment & Plan (1) COVID-19: Plan: Patient is 87 year old male with PMH paroxysmal atrial fibrillation anticoagulated on Coumadin, CVA, HTN, DM II, first-degree AV block, COPD presented to ER with complaint of congestion X 1 week and abdominal pain x 1 day And ER afebrile, no hypoxia + SARS-CoV-2 PCR CXR: No airspace consolidation typical for pneumonia. Ill-defined nodular right suprahilar opacity may be secondary to summation density versus pulmonary nodule. Attention at follow-up recommended. CT chest without contrast personally reviewed; no nodules present. Bilateral infiltrates present. Will start him on remdesivir. No steroids for now Continue to monitor respiratory status. Airborne isolation Duonebs as needed Incentive spirometry, flutter valve Flonase Mucinex (2) Generalized weakness: Plan: Generalized weakness likely secondary to underlying COVID-19 infection Fall precautions PT/OT evaluation pending (3) Abnormal computed tomography angiography (CTA) of abdomen and pelvis: Plan: CT ABD/PELVIS: 1. No bowel obstruction. No bowel wall thickening on unenhanced exam. 2. Interval development of multiple small peritoneal/omental nodules measuring up to 1.2 cm. These are highly suspicious for a neoplastic process and suggest peritoneal implants. Trace ascites. The primary tumor is not identified on this exam. Oncology consultation is recommended. If not recently performed, colonoscopy might be considered. 3. Mild groundglass opacities within the lower lungs suggestive of an infectious process. 4. 2 mm left renal calculus. No ureteral calculi. No hydronephrosis. Discussed regarding the findings with the patient's daughter over the phone. 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 She reports that he was diagnosed with it in 2019 in [facility]. He was offered workup at that time vs continuous monitoring. He did not want workup at that time given his age and comorbid conditions I offered workup during inpatient stay versus following up at the [facility]. She will discuss with the patient regarding it. Order placed for CD with images to be given to patient. (4) Prolonged Q-T interval on ECG: Plan: QTc prolonged on EKG on admission History of first-degree AV block EKG personally reviewed; sinus rhythm. QTc 460 (5) COPD (chronic obstructive pulmonary disease): Plan: History of COPD No current wheezing. Currently positive for COVID-19 Continue home inhalers DuoNebs as needed (6) Paroxysmal atrial fibrillation: Plan: Anticoagulated on Coumadin Current sinus rhythm INR: 2.3 on admission Continue Coumadin, metoprolol succinate (7) CVA (cerebral vascular accident): Plan: History of CVA with residual right-sided weakness, dysarthria History of PEG tube; removed in 220 Continue atorvastatin (8) HTN (hypertension): Plan: Continue amlodipine (9) Diabetes mellitus, type 2: Plan: Insulin-dependent diabetes A1c: 8.1 on 12/29/2022 Continue home basal insulin NovoLog sliding scale per protocol DVT Prophylaxis On Coumadin and INR therapeutic Discussed with patient's daughter over the phone. Answer questions/queries. Dispositionpatient hospitalized for COVID-19 pneumonia. He was started on remdesivir. Need for close monitoring due to high risks for decompensation. Patient lives alone. Will need PT OT evaluation prior to discharge. May need rehab. Time spent evaluating patient, direct bedside care, chart review, placing orders, interpretation of diagnostic studies, discussion with consultants, patient, and family members, as well as other required patient management activities is a 50-minutes Please note the above document was generated using voice recognition software. It may contain grammatical, syntax or spelling errors. Any formal questions or concerns about the content, text or information contained within the body of this dictation should be directly addressed to the provider for clarification Admission and Anticipated Discharge Date Admission Date: April 27, 2023 Subjective Patient seen and examined at bedside. He is lying on the bed comfortably; not in any distress. He is saturating well on room air. Results & Data Results & Data Vital Signs (Past 12 Hours) Vital Signs Temp Pulse Pulse Resp BP Pulse Ox O2 Del Method 04/28/23 07:31 Room Air 04/28/23 07:28 36.9 C 81 16 145/73 H 93 Room Air 04/28/23 05:59 77 04/28/23 02:39 36.9 C 80 20 115/67 93 Room Air (5) COPD (chronic obstructive pulmonary disease) COPD type: unspecified COPD Qualified Code(s): J44.9 - Chronic obstructive pulmonary disease, unspecified
[2023-04-28] MEDS ORDERED: REMDESIVIR 200 MG in SODIUM CHLORIDE 0.9% 210 ML IV ONE (14:00)
[2023-04-28] MEDS: WARFARIN SOD 2.5 MG TAB PO SCH (15:21)
[2023-04-28] MEDS ORDERED: MELATONIN 3 MG TAB PO PRN (20:36)
[2023-04-29 07:23] LABS: Basophils # (auto) 0.02 K/uL (0.00-0.20); Basophils % (auto) 0.3 %; Eosinophils # (auto) 0.01 K/uL (0.00-0.50); Eosinophils % (auto) 0.2 %; Hematocrit (blood only) 37.4 % (42.0-52.0); Hemoglobin 12.7 g/dl (14.0-18.0); Immature Granulocytes # (auto) 0.02 K/uL (0.01-0.20); Immature Granulocytes % (auto) 0.3 %; Lymphocytes # (auto) 1.29 K/uL (1.20-3.40); Lymphocytes % (auto) 22.1 %; Mean Corpuscular Hemoglobin 27.6 pg (25.0-34.0); Mean Corpuscular Volume 81.3 fL (80.0-100.0); Mean Platelet Volume 10.5 fL (9.4-12.4); Monocytes # (auto) 1.34 K/uL (0.11-0.59); Monocytes % (auto) 22.9 %; Neutrophils # (auto) 3.17 K/uL (1.40-6.50); Neutrophils % (auto) 54.2 %; Platelet Count 207 K/uL (130-400); RDW Coefficient of Variation 14.6 % (11.5-14.5); RDW Standard Deviation 43.4 fL (36.4-46.3); White Blood Count 5.85 K/ul (4.8-10.8)
[2023-04-29 07:31] LABS: BUN Creatinine Ratio 18.1 (10-20); Calcium 7.8 mg/dl (8.6-10.3); Est GFR (African American) 84.2 ml/min; Est GFR (Non-African American) 72.6 ml/min; Potassium 3.5 mmol/L (3.5-5.1)
[2023-04-29] MEDS: FLUTICASONE/VILANTEROL 100/25MCG 14 PUFFS/INHALER INH SCH (08:54)
[2023-04-29] MEDS: FLUTICASONE PROPIONATE NA SPR 16 GM BTL SCH (08:54)
[2023-04-29] MEDS: amLODIPine BESYLATE 5 MG TAB PO SCH (08:55)
[2023-04-29] MEDS: guaiFENesin 600 MG TABCR PO SCH ×2 (08:55→21:16)
[2023-04-29] MEDS: ATORVASTATIN 10 MG TAB PO SCH (08:58)
[2023-04-29] MEDS: DOCUSATE SODIUM 100 MG CAP PO SCH (08:58)
[2023-04-29] MEDS: LANTUS PER UNIT CHARGE SQ SCH ×2 (08:59→21:16)
[2023-04-29] MEDS: INSULIN ASPART PER UNIT CHARGE SC SCH ×4 (08:59→21:15)
--- NOTE | 2023-04-29 10:07 | Hospitalist Progress Note ---
Date of Service April 29, 2023 Assessment & Plan (1) COVID-19: Plan: Patient is 87 year old male with PMH paroxysmal atrial fibrillation anticoagulated on Coumadin, CVA, HTN, DM II, first-degree AV block, COPD presented to ER with complaint of congestion X 1 week and abdominal pain x 1 day And ER afebrile, no hypoxia + SARS-CoV-2 PCR CXR: No airspace consolidation typical for pneumonia. Ill-defined nodular right suprahilar opacity may be secondary to summation density versus pulmonary nodule. Attention at follow-up recommended. CT chest without contrast personally reviewed; no nodules present. Bilateral infiltrates present. Continue on remdesivir. No steroids for now Continue to monitor respiratory status. Airborne isolation Duonebs as needed Incentive spirometry, flutter valve Flonase Mucinex (2) Generalized weakness: Plan: Generalized weakness likely secondary to underlying COVID-19 infection Fall precautions PT/OT evaluation pending (3) Abnormal computed tomography angiography (CTA) of abdomen and pelvis: Plan: CT ABD/PELVIS: 1. No bowel obstruction. No bowel wall thickening on unenhanced exam. 2. Interval development of multiple small peritoneal/omental nodules measuring up to 1.2 cm. These are highly suspicious for a neoplastic process and suggest peritoneal implants. Trace ascites. The primary tumor is not identified on this exam. Oncology consultation is recommended. If not recently performed, colonoscopy might be considered. 3. Mild groundglass opacities within the lower lungs suggestive of an infectious process. 4. 2 mm left renal calculus. No ureteral calculi. No hydronephrosis. Discussed regarding the findings with the patient's daughter over the phone on April 28, 2023. 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 She reports that he was diagnosed with it in 2019 in [facility]. He was offered workup at that time vs continuous monitoring. He did not want workup at that time given his age and comorbid conditions I offered workup during [facility] She will discuss with the patient regarding it. Order placed for CD with images to be given to patient. (4) Prolonged Q-T interval on ECG: Plan: QTc prolonged on EKG on admission History of first-degree AV block EKG personally reviewed; sinus rhythm. QTc 460 (5) COPD (chronic obstructive pulmonary disease): Plan: History of COPD No current wheezing. Currently positive for COVID-19 Continue home inhalers DuoNebs as needed (6) Paroxysmal atrial fibrillation: Plan: Anticoagulated on Coumadin Current sinus rhythm INR: 2.3 on admission Continue Coumadin, metoprolol succinate (7) CVA (cerebral vascular accident): Plan: History of CVA with residual right-sided weakness, dysarthria History of PEG tube; removed in 220 Continue atorvastatin (8) HTN (hypertension): Plan: Continue amlodipine (9) Diabetes mellitus, type 2: Plan: Insulin-dependent diabetes A1c: 8.1 on 12/29/2022 Continue home basal insulin NovoLog sliding scale per protocol DVT Prophylaxis On Coumadin and INR therapeutic Dispositionpatient hospitalized for COVID-19 pneumonia. He is on on remdesivir. Need for close monitoring due to high risks for decompensation. Patient lives alone. Will need PT OT evaluation prior to discharge. May need rehab. Time spent evaluating patient, direct bedside care, chart review, placing orders, interpretation of diagnostic studies, discussion patient, and family members, as well as other required patient management activities is a 50-minutes Please note the above document was generated using voice recognition software. It may contain grammatical, syntax or spelling errors. Any formal questions or concerns about the content, text or information contained within the body of this dictation should be directly addressed to the provider for clarification Admission and Anticipated Discharge Date Admission Date: April 27, 2023 Subjective Patient seen and examined at bedside. He reports that he is feeling slightly better today. Reports weakness. Review of Systems Review of Systems: All systems reviewed & are unremarkable except as noted in Subjective Physical Exam Physical Exam: Constitutional: Awake, alert oriented x 3. His speech is slightly difficult to understand; from previous stroke. Respiratory: normal respiratory effort, lungs clear to auscultation, no wheeze, rales, rhonchi. Normal insp/exp effort, no accessory muscle use Cardiovascular: RRR, no murmur, no edema Vessels: no JVD or carotid bruit Chest: normal inspection of chest Abdomen: normal bowel sounds, soft, nontender, no hepatosplenomegaly Musculoskeletal: no cyanosis or clubbing, Skin: no rashes, warm and dry normal turgor Neurologic: PERRL, EOMI, accommodation nl, no face palsy, right-sided weakness present Psychiatric: A+Ox3, euthymic affect Results & Data Results & Data Vital Signs (Past 12 Hours) Vital Signs Temp Pulse Pulse Resp BP Pulse Ox O2 Del Method 04/29/23 09:09 36.7 C 69 16 126/61 93 Room Air 04/29/23 09:04 Room Air 04/29/23 06:02 72 04/29/23 02:36 36.3 C L 78 20 127/57 L 93 Room Air 04/28/23 22:43 76 20 94 Room Air Laboratory Results Laboratory Results WBC 5.85 K/ul (4.8-10.8) 04/29/23 05:55 RBC 4.60 M/uL (4.70-6.10) L 04/29/23 05:55 Hgb 12.7 g/dl (14.0-18.0) L 04/29/23 05:55 Hct 37.4 % (42.0-52.0) L 04/29/23 05:55 MCV 81.3 fL (80.0-100.0) 04/29/23 05:55 MCH 27.6 pg (25.0-34.0) 04/29/23 05:55 MCHC 34.0 g/dL (32.0-36.0) 04/29/23 05:55 RDW Std Deviation 43.4 fL (36.4-46.3) 04/29/23 05:55 RDW Coeff of Mainor 14.6 % (11.5-14.5) H 04/29/23 05:55 Plt Count 207 K/uL (130-400) 04/29/23 05:55 MPV 10.5 fL (9.4-12.4) 04/29/23 05:55 Immature Gran % (Auto) 0.3 % 04/29/23 05:55 Neut % (Auto) 54.2 % 04/29/23 05:55 Lymph % (Auto) 22.1 % 04/29/23 05:55 [place] % (Auto) 22.9 % 04/29/23 05:55 Eos % (Auto) 0.2 % 04/29/23 05:55 Baso % (Auto) 0.3 % 04/29/23 05:55 Neut # (Auto) 3.17 K/uL (1.40-6.50) 04/29/23 05:55 Lymph # (Auto) 1.29 K/uL (1.20-3.40) 04/29/23 05:55 [place] # (Auto) 1.34 K/uL (0.11-0.59) H 04/29/23 05:55 Eos # (Auto) 0.01 K/uL (0.00-0.50) 04/29/23 05:55 Baso # (Auto) 0.02 K/uL (0.00-0.20) 04/29/23 05:55 Immature Gran # (Auto) 0.02 K/uL (0.01-0.20) 04/29/23 05:55 PT 19.2 Seconds (9.0-12.0) H 04/28/23 06:41 INR 1.8 (0.9-1.1) H 04/28/23 06:41 Sodium 138 mmol/L (136-145) 04/29/23 05:55 Potassium 3.5 mmol/L (3.5-5.1) 04/29/23 05:55 Chloride 104 mmol/L (98-107) 04/29/23 05:55 Carbon Dioxide 28 mmol/L (21-32) 04/29/23 05:55 Anion Gap 6 (3-11) 04/29/23 05:55 BUN 17 mg/dl (6-23) 04/29/23 05:55 Creatinine 0.94 mg/dl (0.6-1.4) 04/29/23 05:55 Est Cr Clr Drug Dosing 59.0 ml/min 04/29/23 05:55 Est GFR ( Amer) 84.2 ml/min 04/29/23 05:55 Est GFR (Non-Af Amer) 72.6 ml/min 04/29/23 05:55 BUN/Creatinine Ratio 18.1 (10-20) 04/29/23 05:55 Glucose 74 mg/dl (70-99(Fasting)) 04/29/23 05:55 POC Glucose 99 mg/dl (70-99) 04/29/23 08:26 Estimat Average Glucose 166 mg/dl 04/28/23 06:41 Hemoglobin A1c 7.4 % (4.5-5.6) H 04/28/23 06:41 Lactate 0.9 mmol/L (0.4-2.0) 04/27/23 10:50 Calcium 7.8 mg/dl (8.6-10.3) L 04/29/23 05:55 Magnesium 1.8 mg/dl (1.7-2.4) 04/27/23 09:33 Total Bilirubin 1.1 mg/dl (0.2-1.0) H 04/27/23 09:33 AST 13 U/L (13-39) 04/27/23 09:33 ALT 12 U/L (7-52) 04/27/23 09:33 Alkaline Phosphatase 42 U/L (34-104) 04/27/23 09:33 Troponin I High Sens 17.0 pg/ml (0-20) 04/27/23 09:33 Total Protein 6.2 gm/dl (6.0-8.3) 04/27/23 09:33 Albumin 3.8 gm/dl (3.4-5.0) 04/27/23 09:33 Globulin 2.4 gm/dl (2.5-4.0) L 04/27/23 09:33 Albumin/Globulin Ratio 1.6 (0.9-2) 04/27/23 09:33 Lipase 8 U/L (11-82) L 04/27/23 09:33 Urine Color Yellow 04/27/23 22:14 Urine Appearance Clear (Clear) 04/27/23 22:14 Urine pH 5.0 (4.5-7.5) 04/27/23 22:14 Ur Specific [place] 1.020 (1.000-1.030) 04/27/23 22:14 Urine Protein 1+ (Negative) H 04/27/23 22:14 Urine Glucose (UA) Negative (Negative) 04/27/23 22:14 Urine Ketones 2+ (Negative) H 04/27/23 22:14 Urine Blood Negative (Negative) 04/27/23 22:14 Urine Nitrite Negative (Negative) 04/27/23 22:14 Urine Bilirubin Negative (Negative) 04/27/23 22:14 Urine Urobilinogen Negative (Negative) 04/27/23 22:14 Ur Leukocyte Esterase Negative (Negative) 04/27/23 22:14 Urine WBC (Auto) 1-5 /hpf (0-5) 04/27/23 22:14 Urine RBC (Auto) 0-4 /hpf (0-4) 04/27/23 22:14 U Hyaline Cast (Auto) 1-5 /lpf (0-5) 04/27/23 22:14 U Epithel Cells (Auto) 5-10 /lpf (0-5) H 04/27/23 22:14 Urine Bacteria (Auto) Negative (Negative) 04/27/23 22:14 Adenovirus (PCR) Not Detected (NotDetected) 04/27/23 Unknown B. pertussis DNA (PCR) Not Detected (NotDetected) 04/27/23 Unknown B.parapertussis DNA PCR Not Detected (NotDetected) 04/27/23 Unknown C. pneumoniae DNA (PCR) Not Detected (NotDetected) 04/27/23 Unknown Coronavirus OC43 (PCR) Not Detected (NotDetected) 04/27/23 Unknown Coronavirus HKU1 (PCR) Not Detected (NotDetected) 04/27/23 Unknown Coronavirus 229E (PCR) Not Detected (NotDetected) 04/27/23 Unknown SARS-CoV-2 (PCR) DETECTED (NotDetected) A* 04/27/23 Unknown Coronavirus NL63 (PCR) Not Detected (NotDetected) 04/27/23 Unknown Human Metapneumovir PCR Not Detected (NotDetected) 04/27/23 Unknown Influenza Type A (PCR) Not Detected (NotDetected) 04/27/23 Unknown Influenza Type B (PCR) Not Detected (NotDetected) 04/27/23 Unknown M. pneumoniae (PCR) Not Detected (NotDetected) 04/27/23 Unknown Parainfluenza 1 (PCR) Not Detected (NotDetected) 04/27/23 Unknown Parainfluenza 2 (PCR) Not Detected (NotDetected) 04/27/23 Unknown Parainfluenza 3 (PCR) Not Detected (NotDetected) 04/27/23 Unknown Parainfluenza 4 (PCR) Not Detected (NotDetected) 04/27/23 Unknown RSV (PCR) Not Detected (NotDetected) 04/27/23 Unknown Entero/Rhino (PCR) Not Detected (NotDetected) 04/27/23 Unknown Impressions Abdomen/Pelvis CT 04/27/23 10:05 CT OF THE ABDOMEN AND PELVIS WITHOUT CONTRAST CLINICAL HISTORY: Generalized abdominal pain. COMPARISON STUDY: CT of the abdomen pelvis December 05, 2019 and KUB April 26, 2021. TECHNIQUE: Axial images of the abdomen and pelvis were obtained without IV c ontrast. Images were reviewed in the axial, sagittal, and coronal planes. Automated exposure control was utilized for the study. A dose lowering technique was utilized adhering to the principles of ALARA. FINDINGS: Mild groundglass opacities are noted within the visualized lower lungs. No pneumatosis, free air or portal venous gas is present. A 2 mm calculus within the upper pole the left kidney is present. There are no ureteral calculi. There is no hydronephrosis. The prostate is enlarged. There is no evidence for a bowel obstruction. Evaluation of the abdomen and pelvis is suboptimal on this unenhanced exam. Liver, spleen, adrenal glands and pancreas are unremarkable. There is no biliary or pancreatic ductal dilatation. Small bowel anastomosis is noted. The appendix is not visualized. There has been interval development of multiple peritoneal/omental nodules, including a 1.1 cm left lower quadrant omental nodule on image 244. There is a 1.2 cm peritoneal nodule within the left hemipelvis on image 280. These are suggestive of peritoneal implants. There is trace ascites. No enlarged lymph nodes are identified. No suspicious lesions within visualized skeletal structures are present. Water attenuation left lower pole renal lesion favors a cyst. IMPRESSION: 1. No bowel obstruction. No bowel wall thickening on unenhanced exam. 2. Interval development of multiple small peritoneal/omental nodules measuring up to 1.2 cm. These are highly suspicious for a neoplastic process and suggest peritoneal implants. Trace ascites. The primary tumor is not identified on this exam. Oncology consultation is recommended. If not recently performed, colonoscopy might be considered. 3. Mild groundglass opacities within the lower lungs suggestive of an infectious process. 4. 2 mm left renal calculus. No ureteral calculi. No hydronephrosis. ACT 112: Positive. There are findings on this exam that require communication between the performing entity and the patient following Patient Test Result Information Act ([place] Act 112) guidelines. Electronically signed by: Arvind Rojo M.D. 04/27/2023 11:20 AM Chest X-Ray 04/27/23 10:05 XR chest 1V portable HISTORY: 87 years-old Male cough; shortness of breath acute cough or shortness of breath COMPARISON: 12/28/2022 TECHNIQUE: AP view of the chest FINDINGS: Ill-defined nodular opacity of the suprahilar right lung. Cardiac mediastinal and hilar silhouettes are within normal limits. No pneumothorax, pleural effusion or airspace consolidation. The bones appear grossly intact. Left shoulder rotator cuff calcific tendinosis. IMPRESSION: 1. No airspace consolidation typical for pneumonia. 2. Ill-defined nodular right suprahilar opacity may be secondary to summation de nsity versus pulmonary nodule. Attention at follow-up recommended. ACT 112: Negative or not required by law. The above report was generated using voice recognition software. It may contain grammatical, syntax or spelling errors. Electronically signed by: Taiwo Naqvi M.D. 04/27/2023 10:[address] 04/28/23 07:48 CT chest diagnostic wo con CT DOSE: 371.25 mGy.cm HISTORY: Abnormal chest x-ray. Right nodular suprahilar opacity TECHNIQUE: Multiaxial CT images of the chest were performed without contrast. A dose lowering technique was utilized adhering to the principles of ALARA. COMPARISON: Chest 04/27/2023. Abdomen and pelvis CT 04/27/2023. Chest CT 04/29/2021. FINDINGS: Mild bronchial wall thickening. No pneumothorax. No pleural effusions. No evidence for a right suprahilar opacity or nodule. There are patchy bibasilar densities most pronounced within the left lower lobe. This favors a low-grade pneumonitis. No acute fractures. Mild mediastinal and mild bilateral hilar lymphadenopathy has slightly progressed. The heart is enlarged. Limited views the upper abdomen demonstrate normal liver, spleen, and adrenal glands. There is a small hiatus hernia. Normal caliber esophagus. Mild calcified plaque within the normal caliber thoracic aorta. There are severe coronary artery calcifications noted. IMPRESSION: 1. Small patchy bibasilar densities. This favors a mild pneumonitis. 2. No right suprahilar nodule identified. 3. Mild mediastinal and bilateral hilar lymphadenopathy has slightly progressed. ACT 112: Negative or not required by law. Electronically signed by: Anderson Meehan M.D. 04/28/2023 10:39 AM (5) COPD (chronic obstructive pulmonary disease) COPD type: unspecified COPD Qualified Code(s): J44.9 - Chronic obstructive pulmonary disease, unspecified
[2023-04-29] MEDS: METOPROLOL SUCC 25MG EXT REL TAB PO SCH (11:40)
[2023-04-29] MEDS: REMDESIVIR 100 MG in SODIUM CHLORIDE 0.9% 230 ML IV SCH (11:42)
[2023-04-29] MEDS: WARFARIN SOD 2.5 MG TAB PO SCH (16:28)
[2023-04-30 07:47] LABS: Albumin Globulin Ratio 1.4 (0.9-2); Albumin Level 3.3 gm/dl (3.4-5.0); BUN Creatinine Ratio 18.9 (10-20); Bilirubin,Total 0.7 mg/dl (0.2-1.0); Calcium 7.8 mg/dl (8.6-10.3); Creatinine Clr Calc Pharmacy 58.3 ml/min; Est GFR (African American) 83.1 ml/min; Est GFR (Non-African American) 71.7 ml/min; Globulin 2.3 gm/dl (2.5-4.0); Potassium 3.5 mmol/L (3.5-5.1); Total Protein 5.6 gm/dl (6.0-8.3)
[2023-04-30 08:10] LABS: Basophils # (auto) 0.02 K/uL (0.00-0.20); Basophils % (auto) 0.5 %; Eosinophils # (auto) 0.05 K/uL (0.00-0.50); Eosinophils % (auto) 1.3 %; Hematocrit (blood only) 40.6 % (42.0-52.0); Hemoglobin 13.3 g/dl (14.0-18.0); Immature Granulocytes # (auto) 0.01 K/uL (0.01-0.20); Immature Granulocytes % (auto) 0.3 %; Lymphocytes % (auto) 35.6 %; Mean Corpuscular Hemoglobin 27.4 pg (25.0-34.0); Mean Corpuscular Hgb Conc 32.8 g/dL (32.0-36.0); Mean Corpuscular Volume 83.5 fL (80.0-100.0); Mean Platelet Volume 10.1 fL (9.4-12.4); Monocytes # (auto) 0.83 K/uL (0.11-0.59); Monocytes % (auto) 21.1 %; Neutrophils # (auto) 1.62 K/uL (1.40-6.50); Neutrophils % (auto) 41.2 %; Platelet Count 191 K/uL (130-400); RDW Coefficient of Variation 14.5 % (11.5-14.5); RDW Standard Deviation 43.8 fL (36.4-46.3); Red Blood Count 4.86 M/uL (4.70-6.10); White Blood Count 3.93 K/ul (4.8-10.8)
[2023-04-30] MEDS: ATORVASTATIN 10 MG TAB PO SCH (08:17)
[2023-04-30] MEDS: FLUTICASONE PROPIONATE NA SPR 16 GM BTL SCH (08:17)
[2023-04-30] MEDS: amLODIPine BESYLATE 5 MG TAB PO SCH (08:17)
[2023-04-30] MEDS: guaiFENesin 600 MG TABCR PO SCH (08:18)
[2023-04-30] MEDS: DOCUSATE SODIUM 100 MG CAP PO SCH (08:18)
[2023-04-30] MEDS: FLUTICASONE/VILANTEROL 100/25MCG 14 PUFFS/INHALER INH SCH (08:18)
[2023-04-30] MEDS: LANTUS PER UNIT CHARGE SQ SCH (08:50)
[2023-04-30] MEDS: INSULIN ASPART PER UNIT CHARGE SC SCH ×2 (09:02→13:09)
[2023-04-30] MEDS: METOPROLOL SUCC 25MG EXT REL TAB PO SCH (10:58)
[2023-04-30 11:52] LABS: INR 1.6 (0.9-1.1); Prothrombin Time 17.3 Seconds (9.0-12.0)
[2023-04-30] MEDS: REMDESIVIR 100 MG in SODIUM CHLORIDE 0.9% 230 ML IV SCH (12:15)
--- NOTE | 2023-04-30 14:48 | Discharge Summary ---
Date of Service April 30, 2023 Admission HPI Per Admitting Provider Patient is 87 year old male with PMH paroxysmal atrial fibrillation anticoagulated on Coumadin, CVA, HTN, DM II, first-degree AV block, COPD presented to ER with complaint of congestion and abdominal pain. History o btained from patient as well as inpatient chart review. Patient with history of stroke with some residual right-sided weakness and dysarthria. Patient is able to ambulate. Lives home alone. States this week has had nasal congestion and cannot breathe through his nose. Also complains of cough. States is coughing up white phlegm. States last night had some nausea and diffuse abdominal discomfort. States was constipated but had BM yesterday and states BM today was loose. Feels chills, unsure if had fever. Patient very concerned about nasal congestion and difficulty breathing through nose. Denies any current abdominal discomfort. He states he has been feeling weak. Denies hematemesis, melena, hematochezia, GORDON, dizziness, syncope, CP, SOB, palpitations, hemoptysis, sore throat, paresthesias, extremity edema, rashes, urinary symptoms. Admission Exam Per Admitting Provider General: no acute distress, WDWN elderly male Head: normocephalic, atraumatic Eyes: PERRL, conjunctiva non-injected, anicteric ENT: normal inspection external ears, +rhinorrhea and turbinate edema, mucous membranes mildly dry Neck: supple, trachea midline Lungs: clear, no respiratory distress, no wheezing/rhonchi/rales CV: RRR, no murmur, no JVD, no pretibial edema Abd: normal BS, soft, non-tender Ext: no cyanosis, no calf tenderness Neuro: Alert, oriented to person, place. Unsure of date. Speech somewhat hard to understand (reported baseline), +right sided weakness (reported from prior stroke) Skin: warm, dry Principal Diagnosis COVID-19 infection Discharge Exam Constitutional: Awake, alert oriented x 3. His speech is slightly difficult to understand; from previous stroke. Respiratory: normal respiratory effort, lungs clear to auscultation, no wheeze, rales, rhonchi. Normal insp/exp effort, no accessory muscle use Cardiovascular: RRR, no murmur, no edema Vessels: no JVD or carotid bruit Chest: normal inspection of chest Abdomen: normal bowel sounds, soft, nontender, no hepatosplenomegaly Musculoskeletal: no cyanosis or clubbing, Skin: no rashes, warm and dry normal turgor Neurologic: PERRL, EOMI, accommodation nl, no face palsy, right-sided weakness present Psychiatric: A+Ox3, euthymic affect Discharge Data Allergies Allergy/AdvReac Type Severity Reaction Status Date / Time No Known Allergies Allergy Verified 02/16/23 09:28 Consultations 04/27/23 14:22 ED Decision to Admit Stat 04/28/23 10:04 Burn CD for patient Routine Ordered Studies 04/27/23 10:05 CT abd pelvis wo con Stat 04/28/23 07:48 CT chest diagnostic wo con Routine Hospital Course (1) COVID-19: (2) Generalized weakness: Patient is 87 year old male with PMH paroxysmal atrial fibrillation anticoagulated on Coumadin, CVA, HTN, DM II, first-degree AV block, COPD pre sented to ER with complaint of congestion X 1 week and abdominal pain x 1 day And ER afebrile, no hypoxia + SARS-CoV-2 PCR CXR: No airspace consolidation typical for pneumonia. Ill-defined nodular right suprahilar opacity may be secondary to summation density versus pulmonary nodule. Attention at follow-up recommended. CT chest without contrast personally reviewed; no nodules present. Mild pneu monitis present. At discharge, patient was saturating well in room air. He was hemodynamically stable. He reported that he is at his baseline. Discussed about rehab placement; patient and daughter agree that patient will do better at home for the time being. (3) Abnormal computed tomography angiography (CTA) of abdomen and pelvis: CT ABD/PELVIS: 1. No bowel obstruction. No bowel wall thickening on unenhanced exam. 2. Interval development of multiple small peritoneal/omental nodules measuring up to 1.2 cm. These are highly suspicious for a neoplastic process and suggest peritoneal implants. Trace ascites. The primary tumor is not identified on this exam. Oncology consultation is recommended. If not recently performed, colonoscopy might be considered. 3. Mild groundglass opacities within the lower lungs suggestive of an infectious process. 4. 2 mm left renal calculus. No ureteral calculi. No hydronephrosis. Discussed regarding the findings with the patient's daughter over the phone. 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 She reports that he was diagnosed with it in [address] [facility]. He was offered workup at that time vs continuous monitoring. He did not want workup at that time given his age and comorbid conditions I offered workup during [facility] Patient's daughter stated that patient will follow-up at the [place]. (4) CVA (cerebral vascular accident): History of CVA with residual right-sided weakness, dysarthria History of PEG tube; removed in 220 Continue atorvastatin (5) HTN (hypertension): Continue amlodipine (6) Diabetes mellitus, type 2: Insulin-dependent diabetes A1c: 8.1 on 12/29/2022 Continue home basal insulin NovoLog sliding scale per protocol Please note the above document was generated using voice recognition software. It may contain grammatical, syntax or spelling errors. Any formal questions or concerns about the content, text or information contained within the body of this dictation should be directly addressed to the provider for clarification Total Time Total Time Spent Total Time Spent (In Minutes): 45 Discharge Plan Discharge Items Patient Disposition: Home - Self-Care Reason For Visit: COVID Discharge Diagnosis: COVID-19 infection Activity: Resume your previous activity Non-emergency contact: Primary Care Provider Call non-emergency contact if: you have any medication questions and your symptoms worsen Follow-up/Referrals: Tamie Portillo PA-C [Primary Care Provider] - Diet: Regular Addtl Attending Provider Instructions: You were admitted to the hospital due to COVID-[address] of the chest showed mild pneumonitis. You are treated with remdesivir during the hospitalization. The abdomen CT showed multiple small peritoneal/omental nodules up to 1.2 cm. [facility] A CD with the imagings is with the discharge paperwork. Please follow-up with your primary care doctor sometime next week. Pending Studies at Discharge: No Stand-Alone Forms: [employer], Smoking Cessation Medications and DC Order Prescriptions: Continued fluticasone propion-salmeterol [Wixela Inhub] 250-50 mcg/dose blister with device 1 inh inhalation BID Qty: 90 3RF sennosides 8.6 mg tablet 17.2 mg PO .MIDDAY docusate sodium [Colace] 100 mg Capsule 100 mg PO QAM atorvastatin 20 mg Tablet 10 mg PO QAM warfarin 2.5 mg Tablet 2.5 mg PO DIRECTED Rx Instructions: as direcred by anticoagulation clinic per daughter- .5 everyday currently insulin aspart U-100 [Novolog PenFill U-100 Insulin] 100 unit/mL Cartridge 1 sliding scale dose SUBCUT USEASDIRECTD metoprolol succinate 25 mg tablet extended release 24 hr 25 mg PO .MIDDAY Mucinex 1 tab PO DAILY PRN (Reason: congestion ) amlodipine 10 mg Tablet 10 mg PO QAM Changed insulin glargine [Lantus Solostar U-100 Insulin] 100 unit/mL (3 mL) insulin pen 8 unit SC HS Qty: 15 0RF Discharge Orders: Discharge Order (Routine); Ordered 04/30/23 Ordered By: Jakob Santa/Other Patient Handouts: Managing Type 2 Diabetes Admission Data Admit Date/Time: 04/29/23 10:06 Attending Provider: Jakob Hernandez Admit Provider: Dennise Bowen Primary Care Provider: Tamie Portillo Other Providers: Dennise Bowne; [facility]
--- NOTE | 2023-05-04 06:05 | Coding Query ---
CODING QUERY To promote full compliance with coding requirements relating to patient care, provider participation is requested in all cases of physician coder uncertainty. Please assist us with the question(s) below: Coding Question(s): Pt admitted with COVID infection. CT chest : mild pneumonitis & bilateral infiltrates. Please document, if known or suspected, the specific type of COVID infection present on admission. Thanks for your help! Clayton Proctor [facility] Physician's Response(s): COVID-19 pneumonia, POA. Principal Diagnosis: "that condition established after study, to be chiefly responsible for occasioning the admission of the patient to the hospital for care." Co-Existing Principal Diagnosis: "when two or more diagnoses equally meet the criteria for principal diagnosis as determined by the circumstances of admission, diagnostic work up, and/or therapy provided, and the Alphabetic Index, Tabular List, or another coding guideline does not provide sequencing direction, any one of the diagnoses may be sequenced first." "When the physician has documented what appears to be a current diagnosis in the body of the record, but has not included the diagnosis in the final diagnostic statement, the physician should be asked whether the diagnosis should be added." (Source Coding [facility] 2 QTR90. p3-4) [place]
== END 2023-04-30 17:58 | disposition home or self-care (01) | DRG 177 ==
LOC: ED 09:13 → EDINP 09:13 → SUATTDRO 14:27 → 2W 16:26 → SUATTDRO 04-29 10:06

== ENCOUNTER 2023-05-04 12:32 | Inpatient (IN) ==
[2023-05-04] MEDS ORDERED: SODIUM CHLORIDE 0.9% 1,000 ML IV ONE (12:54)
--- NOTE | 2023-05-04 12:58 | Emergency Department Note ---
Impression & Plan Weakness, Elevated INR ED Provider Note NAME: LIGIA NOBLES Jr AGE: 87 SEX: M : 1935 ARRIVES VIA: Ambulance INFORMANT: Patient ED PROVIDER(S): Shaheed Farris DO CHIEF COMPLAINT: weakness HPI: Patient is an 87-year-old male who presents the ER for weakness. Patient was just recently diagnosed for COVID. Does have a history of CVA dysarthria and weakness. He was unable to get up out of bed today. He denies all complaints including headache, change in chest pain, shortness of breath, nausea vomiting or diarrhea. He does admit to a cough. No dysuria, urgency, or frequency. ADDITIONAL HISTORY OBTAINED: Per HPI Chronic Medical/Social Conditions Affecting Care: Per HPI PAST MEDICAL HISTORY:See Below PAST SURGICAL HISTORY:See Below FAMILY HISTORY:See Below SOCIAL HISTORY:See Below HOME MEDICATIONS:See Below ALLERGIES:See Below VITALS:See Below PHYSICAL EXAMINATION: GENERAL: Sitting up in bed, alert, well appearing, well nourished, no distress, non-toxic EYE EXAM: normal conjunctiva. PERRL and EOM's grossly intact. OROPHARYNX:mucous membranes are moist NECK: supple, no nuchal rigidity, no adenopathy, non-tender LUNGS: Clear to auscultation. Normal chest wall mechanics HEART: no murmurs, S1 normal and S2 normal ABDOMEN: abdomen soft, non-tender, normo-active bowel sounds, no masses, no rebound or guarding. BACK: Back is symmetrical on inspection and there is no deformity, no midline tenderness, no CVA tenderness. SKIN: no rashes and no bruising UPPER EXTREMITIES: upper extremities are grossly normal. LOWER EXTREMITIES: No pitting edema. NEURO EXAM: Awake alert with a muffled speech moving both upper and bilateral lower extremities without any obvious focal weakness. MEDICAL DECISION MAKING: Patient is a 70-year-old male who presents ER for weakness. IV was established blood was obtained. Labs show no significant leukocytosis or anemia. BMP was unremarkable. INR 2.6. LFTs bilirubin was unremarkable. Troponin was negative. Lipase normal. UA was clean. CT of the head and chest x-ray were unremarkable. Patient was extremely weak and unable to get around and consequently discussed case with the hospitalist for further evaluation management treatment. Consults/Care Managements Discussions: Per [facility] Triage Nursing notes reviewed. Limited review of prior medical records performed Vital Signs: reviewed and remarkable for no significant abnormalities Differential diagnosis: Infection, dehydration, metabolic abnormality, hypo/hyperglycemia, electrolyte disturbance, anemia, hypoxia, cardiac sources, intracerebral event, toxicologic, neurologic, as well as other pathologies. ER treatment provided: See below Diagnostics interpreted by me include EKG and cardiac monitoring as listed below: -Cardiac Monitoring: An order was placed for continuous cardiac monitoring. The monitor shows a rate of 70 with Afib rhythm. -ECG: A-fib rate 86 Normal axis No PVCs QTc 440 -Laboratory studies:Interpreted by me as stated above in MDM and shown below. Imaging studies: Xrays: As interpreted by me:none CTs show: CT head per my preliminary interpretation shows no obvious large bleed Procedures:none Critical Care: None Past Med/Surg History Medical History Paroxysmal atrial fibrillation Confusion Acute and chronic respiratory failure with hypoxia Acute exacerbation of chronic obstructive pulmonary disease Acute hypoxemic respiratory failure CVA (cerebral vascular accident) DVT prophylaxis Gout BPH (benign prostatic hyperplasia) Diabetes mellitus, type 2 History of stomach cancer 2017--sx Hearing deficit Hypertension Hyperlipidemia Transient ischemic attack (TIA) 07/2018--no lasting deficits from that mini stroke Stroke 01/20/2019--difficulty swallowing/speech slurred/lost ability to use right hand--[place]. Jerri [place] [facility] [place] Atrial fibrillation on xarelto Asthma inhaler/nebulizer prn COPD (chronic obstructive pulmonary disease) HTN (hypertension) History of multiple strokes First degree AV block Pneumonia Nasal polyposis difficultly breathing through nose Chronic pansinusitis Dysarthria Dysphagia as late effect of cerebrovascular accident (CVA) has improved Surgical History History of esophagogastroduodenoscopy (EGD) History of appendectomy History of abdominal surgery removal of stomach cancer mass History of tooth extraction most teeth removed History of nasal polypectomy History of bilateral cataract extraction History of prostate surgery Status post insertion of percutaneous endoscopic gastrostomy (PEG) tube History of gastric restrictive surgery Family History Brother Family history of diabetes mellitus Other No family history of adverse response to anesthesia No family history of bleeding disorder Social History Smoking Status: Never smoker Second Hand Exposure: No; Do You Dip or Chew Tobacco: No; Hx Alcohol Use: No Hx Substance Use: No Preferred Language: Serbian Communication Ability: Effective Communication Ability Comment: daughter needs to be with pt [place] Required: No Beliefs That Will Affect Care: None marital status: Current Living Situation: Alone Current Living Situation Comment: [place] current occupational status: retired Feels Safe at Home: Yes Assistive Devices: Cane, Walker and Other Allergies Allergies Allergy/AdvReac Type Severity Reaction Status Date / Time No Known Allergies Allergy Verified 02/16/23 09:28 Home Meds Home Medications Medication Instructions Recorded Confirmed docusate sodium 100 mg capsule 100 mg PO QAM 09/11/19 05/04/23 (Colace) atorvastatin 20 mg tablet 10 mg PO QAM 11/14/19 05/04/23 sennosides 8.6 mg tablet 17.2 mg PO .MIDDAY 10/11/20 05/04/23 amlodipine 10 mg tablet 10 mg PO QAM 01/24/21 05/04/23 insulin aspart U-100 100 unit/mL 1 sliding scale dose subcut 12/28/22 05/04/23 subcutaneous cartridge (Novolog USEASDIRECTD PenFill U-100 Insulin aspart) warfarin 2.5 mg tablet 2.5 mg PO DIRECTED 12/28/22 05/04/23 Mucinex 1 tab PO DAILY PRN congestion 04/27/23 05/04/23 metoprolol succinate 25 mg 25 mg PO .MIDDAY 04/27/23 05/04/23 tablet,extended release 24 hr Previous Rx's Medication Instructions Recorded fluticasone 250 mcg-salmeterol 50 1 inh inhalation BID #90 puffs 11/28/22 mcg/dose blistr powdr for inhalation (Wixela Inhub) insulin glargine 100 unit/mL (3 8 unit (0.08 mL) SC HS #15 mL 04/30/23 mL) subcutaneous pen (Lantus Solostar U-100 Insulin) Results & Data (ED) Vital Signs Vital Signs - 24 hr 05/04/23 12:51 05/04/23 13:27 05/04/23 13:40 Pulse Rate 93 H Pulse Rate [Apical] 100 H Respiratory Rate 7 L 10 L Respiratory Effort / Characteristics Non-Labored Non-Labored Respiratory Depth Normal Normal Respiratory Pattern Regular Blood Pressure 129/92 Blood Pressure [Right Arm] 121/92 Blood Pressure Mean 104 Blood Pressure Mean [Right Arm] 101 Pulse Oximetry 97 97 97 Oxygen Delivery Method Room Air Room Air Room Air Oxygen Flow Rate 0 Sepsis Recent Fever Within 48 Hours No Sepsis New/Unexplained Change in Mental Status No Sepsis Action Taken by Nursing No Action Required Laboratory Data 05/04/23 13:29 05/04/23 13:30 Lab Results 05/04/23 05/04/23 05/04/23 Range/Units 13:29 13:30 13:32 WBC 5.65 (4.8-10.8) K/ul RBC 5.38 (4.70-6.10) M/uL Hgb 14.9 (14.0-18.0) g/dl Hct 43.8 (42.0-52.0) % MCV 81.4 (80.0-100.0) fL MCH 27.7 (25.0-34.0) pg MCHC 34.0 (32.0-36.0) g/dL RDW Std Deviation 41.7 (36.4-46.3) fL RDW Coeff of Mainor 14.2 (11.5-14.5) % Plt Count 210 (130-400) K/uL MPV 10.6 (9.4-12.4) fL Immature Gran % (Auto) 0.2 % Neut % (Auto) 56.4 % Lymph % (Auto) 23.0 % [place] % (Auto) 18.1 % Eos % (Auto) 2.1 % Baso % (Auto) 0.2 % Neut # (Auto) 3.19 (1.40-6.50) K/uL Lymph # (Auto) 1.30 (1.20-3.40) K/uL [place] # (Auto) 1.02 H (0.11-0.59) K/uL Eos # (Auto) 0.12 (0.00-0.50) K/uL Baso # (Auto) 0.01 (0.00-0.20) K/uL Immature Gran # (Auto) 0.01 (0.01-0.20) K/uL PT 27.2 H (9.0-12.0) Seconds INR 2.6 H (0.9-1.1) Sodium 141 (136-145) mmol/L Potassium 4.0 (3.5-5.1) mmol/L Chloride 106 (98-107) mmol/L Carbon Dioxide 28 (21-32) mmol/L Anion Gap 7 (3-11) BUN 13 (6-23) mg/dl Creatinine 0.83 (0.6-1.4) mg/dl Est Cr Clr Drug Dosing 66.8 ml/min Est GFR ( Amer) 91.7 ml/min Est GFR (Non-Af Amer) 79.1 ml/min BUN/Creatinine Ratio 15.7 (10-20) Glucose 156 H (70-99(Fasting)) mg/dl Calcium 8.7 (8.6-10.3) mg/dl Total Bilirubin 1.2 H (0.2-1.0) mg/dl AST 13 (13-39) U/L ALT 15 (7-52) U/L Alkaline Phosphatase 45 (34-104) U/L Troponin I High Sens 8.6 (0-20) pg/ml Total Protein 6.2 (6.0-8.3) gm/dl Albumin 3.7 (3.4-5.0) gm/dl Globulin 2.5 (2.5-4.0) gm/dl Albumin/Globulin Ratio 1.5 (0.9-2) Lipase 13 (11-82) U/L Urine Color Yellow Urine Appearance Clear (Clear) Urine pH 6.0 (4.5-7.5) Ur Specific [place] 1.011 (1.000-1.030) Urine Protein Trace H (Negative) Urine Glucose (UA) Negative (Negative) Urine Ketones Trace H (Negative) Urine Blood Negative (Negative) Urine Nitrite Negative (Negative) Urine Bilirubin Negative (Negative) Urine Urobilinogen Negative (Negative) Ur Leukocyte Esterase Negative (Negative) Urine WBC (Auto) 1-5 (0-5) /hpf Urine RBC (Auto) 0-4 (0-4) /hpf U Hyaline Cast (Auto) 1-5 (0-5) /lpf U Epithel Cells (Auto) 10-20 H (0-5) /lpf Urine Bacteria (Auto) Negative (Negative) Administered Medications Discontinued Medications Sodium Chloride (Nss) 1,000 mls @ 999 mls/hr IV .Q1H1M ONE Stop: 05/04/23 13:54 Last Infusion: 05/04/23 14:33 Dose: Infused Documented By: Admin: 05/04/23 13:32 Dose: 999 mls/hr Documented By: MALISSA Imaging Data Radiologist's Impression: Chest X-Ray 05/04/23 12:54 SINGLE VIEW CHEST CLINICAL HISTORY: Atypical chest pain. Generalized weakness. FINDINGS: 2 AP, portable, upright chest radiographs are compared to study dated 04/27/2023 and correlated with chest CT dated 04/28/2023. The heart is enlarged noting atherosclerotic calcification of the thoracic aorta. The pulmonary vasculature is noncongested. Chronic interstitial thickening similar to previous. There is bibasilar scarring/atelectasis. No airspace consolidation or large pleural effusion is identified. No pneumothorax is seen. The skeletal structures are osteopenic. The bony thorax is grossly intact. Arthritic change is noted in the shoulders. IMPRESSION: Cardiomegaly with no active disease in the chest. ACT 112: Negative or not required by law. Electronically signed by: Mir Cantu M.D. 05/04/2023 1:[address] 05/04/23 12:54 CT head/brain wo con CLINICAL HISTORY: 87 years-old Male with wekness. Acute weakness TECHNIQUE: Multiple axial CT images of the head were obtained without contrast. A dose lowering technique was utilized adhering to the principles of ALARA. CT DOSE: 547.75 mGy.cm COMPARISON: Head CT and brain MRI studies 12/28/2022 FINDINGS: No acute intracranial hemorrhage, midline shift, intracranial mass, hydrocephalus, territorial ischemia or abnormal extra-axial collection. Involutional changes with advanced chronic microvascular ischemic disease again noted. Chronic basal ganglia lacunar infarcts. Dentate nuclear calcifications are again seen. The calvarium is intact. Prior bilateral lens repair. Trace mastoid effusions. Severe chronic paranasal sinus disease with mucoperiosteal thickening, complete left maxillary sinus and prominent ethmoid air cell and nasal turbinate polypoid mucosal thickening. Near complete opacification of the frontal sinuses. IMPRESSION: Chronic findings as above without acute intracranial abnormality. ACT 112: Negative or not required by law. The above report was generated using voice recognition software. It may contain grammatical, syntax or spelling errors. Electronically signed by: Taiwo Naqvi M.D. 05/04/2023 1:13 PM Discharge Plan Visit Data Chief Complaint: Weakness Stated Complaint: WEAKNESS, CONFUSION ED Provider: Shaheed Farris Discharge Problem: Weakness, Elevated INR Patient Disposition: Admitted As Inpatient
--- NOTE | 2023-05-04 13:16 | CT Scan Report ---
CT head/brain wo con CLINICAL HISTORY: 87 years-old Male with wekness. Acute weakness TECHNIQUE: Multiple axial CT images of the head were obtained without contrast. A dose lowering tech nique was utilized adhering to the principles of ALARA. CT DOSE: 547.75 mGy.cm COMPARISON: Head CT and brain MRI studies 12/28/2022 FINDINGS: No acute intracranial hemorrhage, midline shift, intracranial mass, hydrocephalus, territorial ischem ia or abnormal extra-axial collection. Involutional changes with advanced chronic microvascular ische virginie disease again noted. Chronic basal ganglia lacunar infarcts. Dentate nuclear calcifications are a gain seen. The calvarium is intact. Prior bilateral lens repair. Trace mastoid effusions. Severe chronic paranas al sinus disease with mucoperiosteal thickening, complete left maxillary sinus and prominent ethmoid air cell and nasal turbinate polypoid mucosal thickening. Near complete opacification of the frontal sinuses. IMPRESSION: Chronic findings as above without acute intracranial abnormality. ACT 112: Negative or not required by law. The above report was generated using voice recognition software. It may contain grammatical, syntax o r spelling errors. Electronically signed by: Taiwo Naqvi M.D. 05/04/2023 1:13 PM
--- NOTE | 2023-05-04 13:44 | XRay Report ---
SINGLE VIEW CHEST CLINICAL HISTORY: Atypical chest pain. Generalized weakness. FINDINGS: 2 AP, portable, upright chest radiographs are compared to study dated 04/27/2023 and correla yandel with chest CT dated 04/28/2023. The heart is enlarged noting atherosclerotic calcification of the thoracic aorta. The pulmonary vasculature is noncongested. Chronic interstitial thickening similar to previous. There is bibasilar scarring/atelectasis. No airspace consolidation or large pleural effusi on is identified. No pneumothorax is seen. The skeletal structures are osteopenic. The bony thorax is grossly intact. Arthritic change is noted in the shoulders. IMPRESSION: Cardiomegaly with no active disease in the chest. ACT 112: Negative or not required by law. Electronically signed by: Mir Cantu M.D. 05/04/2023 1:43 PM
[2023-05-04 13:52] LABS: Basophils # (auto) 0.01 K/uL (0.00-0.20); Basophils % (auto) 0.2 %; Eosinophils # (auto) 0.12 K/uL (0.00-0.50); Eosinophils % (auto) 2.1 %; Hematocrit (blood only) 43.8 % (42.0-52.0); Hemoglobin 14.9 g/dl (14.0-18.0); Immature Granulocytes # (auto) 0.01 K/uL (0.01-0.20); Immature Granulocytes % (auto) 0.2 %; Mean Corpuscular Hemoglobin 27.7 pg (25.0-34.0); Mean Corpuscular Volume 81.4 fL (80.0-100.0); Mean Platelet Volume 10.6 fL (9.4-12.4); Monocytes # (auto) 1.02 K/uL (0.11-0.59); Monocytes % (auto) 18.1 %; Neutrophils # (auto) 3.19 K/uL (1.40-6.50); Neutrophils % (auto) 56.4 %; Platelet Count 210 K/uL (130-400); RDW Coefficient of Variation 14.2 % (11.5-14.5); RDW Standard Deviation 41.7 fL (36.4-46.3); Red Blood Count 5.38 M/uL (4.70-6.10); White Blood Count 5.65 K/ul (4.8-10.8)
[2023-05-04 14:11] LABS: Albumin Globulin Ratio 1.5 (0.9-2); Albumin Level 3.7 gm/dl (3.4-5.0); BUN Creatinine Ratio 15.7 (10-20); Bilirubin,Total 1.2 mg/dl (0.2-1.0); Calcium 8.7 mg/dl (8.6-10.3); Creatinine Clr Calc Pharmacy 66.8 ml/min; Est GFR (African American) 91.7 ml/min; Est GFR (Non-African American) 79.1 ml/min; Globulin 2.5 gm/dl (2.5-4.0); Total Protein 6.2 gm/dl (6.0-8.3)
[2023-05-04 14:14] LABS: Troponin I High Sensitivity 8.6 pg/ml (0-20)
[2023-05-04 14:50] LABS: Appearance Urine Clear (Clear); Bacteria Urine Automated Negative (Negative); Bilirubin Urine Negative (Negative); Blood Urine Negative (Negative); Color Urine Yellow; Glucose Urine UA Negative (Negative); Ketones Urine Trace (Negative); Leukocyte Esterase Urine Negative (Negative); Nitrite Urine Negative (Negative); Protein Urine Trace (Negative); RBC Urine Automated 0-4 /hpf (0-4); Specific Gravity Urine 1.011 (1.000-1.030); Urobilinogen Urine Negative (Negative)
--- NOTE | 2023-05-04 14:57 | History & Physical Report ---
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 Generalized Weakness Recent covid -19 illness + test on 04/27 admit to med tele consult PT/OT pt may benefit from rehab pt appears dry on exam, will give gentle IVF x 1 L no other overt infection noted, CBC unremarkable, UA/CXR negative likely residual from covid 19 will add flonase for residual congestion obtain blood cultures given reported confusion a.m. labs cbc, cmp, mag, pt/inr ordered PAF continue metoprolol INR therapeutic, continue warfarin obtain INR in am. Hx of CVA w residual R sided weakness, dysarthria continue warfarin, statin T2DM insulin controlled last a1c 7.4 on 04/28 adequate control lantus/novolog per protocol HLD chronic, stable continue statin COPD no acute exac continue home inhalers DVT ppx: warfarin FULL CODE PCP: Tamie Portillo, [place] clinic Dispo: admit to med tele, pt may need rehab Pt was seen and examined in collaboration with Dr. Calzada, please see addendum A total of 64 was spent coordinating, documenting, and providing care for this patient excluding time spent in the performance of separately billed services. This included personally viewing all current laboratories and imaging studies, medication reconciliation, outpatient chart review, and discussion with specialists. History of Present Illness Chief Complaint: Generalized weakness post covid. 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 Of significance patient recently hospitalized 04/27 to 04/30 secondary to COVID-19. He was treated with supportive care. He was started on remdesivir but did not require any IV steroids. He was generally weak and was seen and evaluated by PT and OT. Rehab placement was discussed by attending however family and patient wished to be discharged home. PT recommended patient safe to d/c to home. He did not have any services arranged at discharge. Also of sign ificance patient did undergo CT abdomen pelvis during hospital stay and incidentally noted multiple small peritoneal/omental nodules measuring up to 1.2 cm which was highly suspicious for neoplastic process and peritoneal implants. Per records patient reported being diagnosed with a low-grade GI tumor in the past back in 2019 at the [facility] and at the time did not want any further intervention. Daughter wished to follow-up results with PA. Pt states he feels generally weak. He hasn't been eating and drinking well since discharged to home. He lives alone. Denies f/c/s, chest pain, sob, n/v/d, abd pain. He continues to have congestion and mild cough. He is not using anything over the counter. In ED pt was hemodynamically stable. Lab work was reviewed independently interpreted by myself. CBC and CMP were generally unremarkable. He did have mildly elevated glucose at 156 and elevated total bilirubin at 1.2. His troponin and lipase were unremarkable. Urinalysis negative for infection. CT head negative for acute hemorrhage or abnormality. Chest x-ray revealed cardiomegaly without any overt cardiopulmonary disease. Allergies Allergy/AdvReac Type Severity Reaction Status Date / Time No Known Allergies Allergy Verified 02/16/23 09:28 Home Medications Medication Instructions Recorded Confirmed Type docusate sodium 100 mg capsule 100 mg PO QAM 09/11/19 05/04/23 History (Colace) atorvastatin 20 mg tablet 10 mg PO QAM 11/14/19 05/04/23 History sennosides 8.6 mg tablet 17.2 mg PO .MIDDAY 10/11/20 05/04/23 History amlodipine 10 mg tablet 10 mg PO QAM 01/24/21 05/04/23 History fluticasone 250 mcg-salmeterol 50 1 inh inhalation BID #90 puffs 11/28/22 05/04/23 Rx mcg/dose blistr powdr for inhalation (Wixela Inhub) insulin aspart U-100 100 unit/mL 1 sliding scale dose subcut 12/28/22 05/04/23 History subcutaneous cartridge (Novolog USEASDIRECTD PenFill U-100 Insulin aspart) warfarin 2.5 mg tablet 2.5 mg PO DIRECTED 12/28/22 05/04/23 History Mucinex 1 tab PO DAILY PRN congestion 04/27/23 05/04/23 History metoprolol succinate 25 mg 25 mg PO .MIDDAY 04/27/23 05/04/23 History tablet,extended release 24 hr insulin glargine 100 unit/mL (3 8 unit (0.08 mL) SC HS #15 mL 04/30/23 05/04/23 Rx mL) subcutaneous pen (Lantus Solostar U-100 Insulin) Past Med/Surg History Medical History Paroxysmal atrial fibrillation Confusion Acute and chronic respiratory failure with hypoxia Acute exacerbation of chronic obstructive pulmonary disease Acute hypoxemic respiratory failure CVA (cerebral vascular accident) DVT prophylaxis Gout BPH (benign prostatic hyperplasia) Diabetes mellitus, type 2 History of stomach cancer 2017--sx Hearing deficit Hypertension Hyperlipidemia Transient ischemic attack (TIA) 07/2018--no lasting deficits from that mini stroke Stroke 01/20/2019--difficulty swallowing/speech slurred/lost ability to use right hand--follows with Dr. Jerri Hayden [place] [facility] Atrial fibrillation on xarelto Asthma inhaler/nebulizer prn COPD (chronic obstructive pulmonary disease) HTN (hypertension) History of multiple strokes First degree AV block Pneumonia Nasal polyposis difficultly breathing through nose Chronic pansinusitis Dysarthria Dysphagia as late effect of cerebrovascular accident (CVA) has improved Surgical History History of esophagogastroduodenoscopy (EGD) History of appendectomy History of abdominal surgery removal of stomach cancer mass History of tooth extraction most teeth removed History of nasal polypectomy History of bilateral cataract extraction History of prostate surgery Status post insertion of percutaneous endoscopic gastrostomy (PEG) tube History of gastric restrictive surgery Family History Brother Family history of diabetes mellitus Other No family history of adverse response to anesthesia No family history of bleeding disorder Social History Smoking Status: Never smoker Second Hand Exposure: No; Do You Dip or Chew Tobacco: No; Hx Alcohol Use: No Hx Substance Use: No Preferred Language: [place] Communication Ability: Effective Communication Ability Comment: daughter needs to be with pt Pantograph Engraver Required: No Beliefs That Will Affect Care: None marital status: Current Living Situation: Alone Current Living Situation Comment: [employer] current occupational status: retired Other Information That Helps Us Care for You: No Feels Safe at Home: No Is there a partner from a previous relationship who is making you feel unsafe now?: No Any Concerns about Your Family Situation: No Would You Like to Speak to Someone About Your Situation: No Safety Concerns: Afraid for Self Assistive Devices: None Review of Systems Review of Systems: All systems reviewed & are unremarkable except as noted in HPI & below Physical Exam Physical Exam: Constitutional: elderly, M, [place], vitals as above, NAD, sitting up in bed, pleasant, conversing easily Head: Normocephalic, Atraumatic Eyes: PERRL, conjunctivae normal, anicteric sclerae ENMT: external ear and nose normal, +rhinorrhea, engorged nasal turbinates, oropharynx dry Neck: trachea midline, no thyromegaly normal visual inspection Respiratory: normal respiratory effort, lungs clear to auscultation, no wheeze, rales, rhonchi. Normal insp/exp effort, no accessory muscle use Cardiovascular: RRR, no murmur, no edema Vessels: no JVD or carotid bruit Chest: normal inspection of chest Abdomen: normal bowel sounds, soft, nontender, no hepatosplenomegaly Musculoskeletal: no cyanosis or clubbing, extremities AROM x 4 Skin: no rashes, warm and dry normal turgor Neurologic: PERRL, EOMI, accommodation nl, no face palsy, no dysarthria CN's II-XI intact bilaterally and moves all extremities Psychiatric: A+Ox3 and basics, euthymic affect Lymphatic: no cervical or axillary lymphadenopathy : deferred Results & Data Results & Data Vital Signs (Past 12 Hours) Vital Signs Pulse Pulse Resp BP BP Pulse Ox O2 Del Method 05/04/23 13:40 97 Room Air 05/04/23 13:27 100 H 10 L 121/92 97 Room Air 05/04/23 12:51 93 H 7 L 129/92 97 Room Air O2 Flow Rate 05/04/23 13:40 0 05/04/23 13:27 05/04/23 12:51 Laboratory Results I have independently reviewed and interpreted patient's admitting labs including CBC, CMP, PT/INR, and troponin. Diagnostic Findings Chest X-Ray 05/04/23 12:54 SINGLE VIEW CHEST CLINICAL HISTORY: Atypical chest pain. Generalized weakness. FINDINGS: 2 AP, portable, upright chest radiographs are compared to study dated 04/27/2023 and correlated with chest CT dated 04/28/2023. The heart is enlarged noting atherosclerotic calcification of the thoracic aorta. The pulmonary vasculature is noncongested. Chronic interstitial thickening similar to previous. There is bibasilar scarring/atelectasis. No airspace consolidation or large pleural effusion is identified. No pneumothorax is seen. The skeletal structures are osteopenic. The bony thorax is grossly intact. Arthritic change is noted in the shoulders. IMPRESSION: Cardiomegaly with no active disease in the chest. ACT 112: Negative or not required by law. Electronically signed by: Mir Cantu M.D. 05/04/2023 1:[address] 05/04/23 12:54 CT head/brain wo con CLINICAL HISTORY: 87 years-old Male with wekness. Acute weakness TECHNIQUE: Multiple axial CT images of the head were obtained without contrast. A dose lowering technique was utilized adhering to the principles of ALARA. CT DOSE: 547.75 mGy.cm COMPARISON: Head CT and brain MRI studies 12/28/2022 FINDINGS: No acute intracranial hemorrhage, midline shift, intracranial mass, hydrocephalus, territorial ischemia or abnormal extra-axial collection. Invo lutional changes with advanced chronic microvascular ischemic disease again noted. Chronic basal ganglia lacunar infarcts. Dentate nuclear calcifications are again seen. The calvarium is intact. Prior bilateral lens repair. Trace mastoid effusions. Severe chronic paranasal sinus disease with mucoperiosteal thickening, complete left maxillary sinus and prominent ethmoid air cell and nasal turbinate polypoid mucosal thickening. Near complete opacification of the frontal sinuses. IMPRESSION: Chronic findings as above without acute intracranial abnormality. ACT 112: Negative or not required by law. The above report was generated using voice recognition software. It may contain grammatical, syntax or spelling errors. Electronically signed by: Taiwo Naqvi M.D. 05/04/2023 1:13 PM Medications Administered Medication List Discontinued Medications Sodium Chloride (Nss) 1,000 mls @ 999 mls/hr IV .Q1H1M ONE Stop: 05/04/23 13:54 Last Infusion: 05/04/23 14:33 Dose: Infused Documented By: Admin: 05/04/23 13:32 Dose: 999 mls/hr Documented By: MALISSA ECG Additional Comments: I have independently reviewed and interpreted patient's admitting EKG which revealed: 86 atrial fib COVID-19 Results Results COVID-19 Adm Lab Results: RBC 5.38 M/uL (4.70-6.10) 05/04/23 WBC 5.65 K/ul (4.8-10.8) 05/04/23 Hgb 14.9 g/dl (14.0-18.0) 05/04/23 Hct 43.8 % (42.0-52.0) 05/04/23 Plt Count 210 K/uL (130-400) 05/04/23 Neutrophils (%) (Auto) 56.4 % 05/04/23 Lymphocytes (%) (Auto) 23.0 % 05/04/23 Monocytes # (Auto) 1.02 K/uL (0.11-0.59) H 05/04/23 Eosinophils # (Auto) 0.12 K/uL (0.00-0.50) 05/04/23 Immature Granulocyte % (Auto) 0.2 % 05/04/23 Neutrophils # (Auto) 3.19 K/uL (1.40-6.50) 05/04/23 Lymphocytes # (Auto) 1.30 K/uL (1.20-3.40) 05/04/23 Monocytes # (Auto) 1.02 K/uL (0.11-0.59) H 05/04/23 Eosinophils # (Auto) 0.12 K/uL (0.00-0.50) 05/04/23 Basophils # (Auto) 0.01 K/uL (0.00-0.20) 05/04/23 Immature Granulocyte # (Auto) 0.01 K/uL (0.01-0.20) 3 Na 141 mmol/L (136-145) 05/04/23 K 4.0 mmol/L (3.5-5.1) 05/04/23 CO2 28 mmol/L (21-32) 05/04/23 Anion Gap 7 (3-11) 05/04/23 BUN 13 mg/dl (6-23) 05/04/23 Creatinine 0.83 mg/dl (0.6-1.4) 05/04/23 BUN/Creatinine Ratio 15.7 (10-20) 05/04/23 Glucose Level 156 mg/dl (70-99(Fasting)) H 05/04/23 Ca 8.7 mg/dl (8.6-10.3) 05/04/23 Total Bilirubin 1.2 mg/dl (0.2-1.0) H 05/04/23 AST/SGOT 13 U/L (13-39) 05/04/23 ALT/SGPT 15 U/L (7-52) 05/04/23 Alkaline Phosphatase 45 U/L (34-104) 05/04/23 Total Protein 6.2 gm/dl (6.0-8.3) 05/04/23 Albumin 3.7 gm/dl (3.4-5.0) 05/04/23 Globulin 2.5 gm/dl (2.5-4.0) 05/04/23 Albumin/Globulin Ratio 1.5 (0.9-2) 05/04/23 INR 2.6 (0.9-1.1) H 05/04/23 Chest X-Ray 05/04/23 Code Status & VTE Plan Code Status FULL CODE VTE Prophylaxis Plan VTE Prophylaxis will be ordered: Yes Supervising Physician Co-Signing Physician Notes Care coordinated with Yocasta Perez PA-C. Agree with above note. Patient seen and examined. Please refer to her notes for full details. Vital signs reviewed. Physical exam: General exam: Alert and awake. Not in acute distress. CVS: S1 and S2 heard, regular rate and rhythm, no murmurs. RS: Clear to auscultation, no wheezing or crackles. ABD: Soft, bowel sounds present, nontender, no distention. HITTING COACH:alert and awake speech pressured. obeys simle commands EXT: No edema, no erythema. Labs: Reviewed. 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 Denies shortness of breath. States he is breathing from his mouth patient lives alone at home. Generalized weakness Recent COVID Flonase PT OT Social service to help with discharge planning. PAF On beta-nan and Coumadin Follow INR Other diagnosis and plan of care as per LINDA Haro MD. (3) COPD (chronic obstructive pulmonary disease) COPD type: unspecified COPD Qualified Code(s): J44.9 - Chronic obstructive pulmonary disease, unspecified
[2023-05-04 15:11] LABS: INR 2.6 (0.9-1.1); Prothrombin Time 27.2 Seconds (9.0-12.0)
[2023-05-04] MEDS ORDERED: GLUCOSE 10 TAB/TUBE PO PRN (18:23)
[2023-05-04] MEDS ORDERED: GLUCAGON FOR INJ 1 MG VIAL SQ PRN (18:23)
[2023-05-04] MEDS ORDERED: LACTATED RINGER'S 1,000 ML IV SCH (18:23)
[2023-05-04] MEDS ORDERED: CARBOHYDRATES FOR HYPOGLYCEMIA PO PRN (18:23)
[2023-05-04] MEDS ORDERED: POLYETHYLENE (MIRALAX) 17 GM PACK PO PRN (18:23)
[2023-05-04] MEDS ORDERED: ALUMINUM/MAGNESIUM SUSP 30 ML UDC PO PRN (18:23)
[2023-05-04] MEDS ORDERED: DEXTROSE 50% 50 ML SYRINGE IV PRN (18:23)
[2023-05-04] MEDS ORDERED: MAGNESIUM HYDROXIDE SUSP 30 ML UDC PO PRN (18:23)
[2023-05-04] MEDS ORDERED: GLUCOSE 40% GEL 15 GM TUBE PO PRN (18:23)
[2023-05-04] MEDS ORDERED: ONDANSETRON INJ 2 MG/ML 2 ML VIAL IV PRN (18:23)
[2023-05-04] MEDS ORDERED: ACETAMINOPHEN 325 MG TAB PO PRN (18:23)
[2023-05-04] MEDS: INSULIN ASPART PER UNIT CHARGE SC SCH ×2 (18:47→21:45)
[2023-05-04] MEDS: SENNA 8.6 MG TAB PO SCH (19:27)
[2023-05-04] MEDS: METOPROLOL SUCC 25MG EXT REL TAB PO SCH (19:28)
[2023-05-04] MEDS: WARFARIN SOD 2.5 MG TAB PO SCH (19:28)
[2023-05-04] MEDS: FLUTICASONE PROPIONATE NA SPR 16 GM BTL SCH (20:20)
[2023-05-05 06:28] LABS: Basophils # (auto) 0.02 K/uL (0.00-0.20); Basophils % (auto) 0.4 %; Eosinophils # (auto) 0.22 K/uL (0.00-0.50); Eosinophils % (auto) 4.9 %; Hemoglobin 12.4 g/dl (14.0-18.0); Immature Granulocytes # (auto) 0.02 K/uL (0.01-0.20); Immature Granulocytes % (auto) 0.4 %; Lymphocytes # (auto) 1.47 K/uL (1.20-3.40); Lymphocytes % (auto) 32.7 %; Mean Corpuscular Hgb Conc 33.5 g/dL (32.0-36.0); Mean Corpuscular Volume 80.6 fL (80.0-100.0); Mean Platelet Volume 10.2 fL (9.4-12.4); Monocytes # (auto) 0.85 K/uL (0.11-0.59); Monocytes % (auto) 18.9 %; Neutrophils # (auto) 1.91 K/uL (1.40-6.50); Neutrophils % (auto) 42.7 %; Platelet Count 211 K/uL (130-400); RDW Coefficient of Variation 14.2 % (11.5-14.5); RDW Standard Deviation 41.5 fL (36.4-46.3); Red Blood Count 4.59 M/uL (4.70-6.10); White Blood Count 4.49 K/ul (4.8-10.8)
[2023-05-05 06:54] LABS: INR 2.6 (0.9-1.1); Prothrombin Time 26.7 Seconds (9.0-12.0)
[2023-05-05 06:57] LABS: Albumin Globulin Ratio 1.5 (0.9-2); Albumin Level 3.2 gm/dl (3.4-5.0); BUN Creatinine Ratio 15.6 (10-20); Bilirubin,Total 1.1 mg/dl (0.2-1.0); Calcium 8.1 mg/dl (8.6-10.3); Est GFR (African American) 94.6 ml/min; Est GFR (Non-African American) 81.6 ml/min; Globulin 2.1 gm/dl (2.5-4.0); Magnesium 1.6 mg/dl (1.7-2.4); Potassium 3.6 mmol/L (3.5-5.1); Total Protein 5.3 gm/dl (6.0-8.3)
--- NOTE | 2023-05-05 07:52 | Electrocardiogram Report ---
Test Reason : Blood Pressure : / mmHG Vent. Rate : 086 BPM Atrial Rate : 000 BPM P-R Int : 000 ms QRS Dur : 084 ms QT Int : 368 ms P-R-T Axes : 000 016 025 degrees QTc Int : 440 ms Atrial fibrillation Inferior infarct (cited on or before 28-APR-2023) Abnormal ECG When compared with ECG of 28-APR-2023 05:24, Atrial fibrillation has replaced Sinus rhythm Nonspecific T wave abnormality no longer evident in Lateral leads Confirmed by Yonatan Vargas ([id number]) on 05/05/2023 7:52:06 AM Referred By: Confirmed By:Yonatan Vargas
[2023-05-05] MEDS: INSULIN ASPART PER UNIT CHARGE SC SCH ×4 (08:13→20:17)
[2023-05-05] MEDS ORDERED: DOCUSATE SODIUM 100 MG CAP PO SCH (09:00)
[2023-05-05] MEDS: ATORVASTATIN 10 MG TAB PO SCH (09:05)
[2023-05-05] MEDS: FLUTICASONE PROPIONATE NA SPR 16 GM BTL SCH (09:05)
[2023-05-05] MEDS: amLODIPine BESYLATE 5 MG TAB PO SCH (09:05)
[2023-05-05] MEDS: FLUTICASONE/VILANTEROL 100/25MCG 14 PUFFS/INHALER INH SCH (09:06)
[2023-05-05] MEDS ORDERED: MAGNESIUM SULFATE / D5W 1 GM/100 ML BAG IV ONE (09:20)
[2023-05-05] MEDS: LANTUS PER UNIT CHARGE SQ SCH (09:33)
[2023-05-05] MEDS: SENNA 8.6 MG TAB PO SCH (12:30)
[2023-05-05] MEDS: METOPROLOL SUCC 25MG EXT REL TAB PO SCH (12:30)
[2023-05-05] MEDS ORDERED: POLYETHYLENE (MIRALAX) 17 GM PACK PO ONE (13:59)
[2023-05-05] MEDS: DOXYCYCLINE HYCLATE 100 MG CAP PO SCH ×2 (14:32→20:17)
--- NOTE | 2023-05-05 16:24 | Hospitalist Progress Note ---
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 Generalized Weakness Recent covid -19 illness + test on 04/27 Deconditioning due to recent infection, comorbidities --CT Head:Chronic findings as above without acute intracranial abnormality. --CXR:Cardiomegaly with no active disease in the chest. -- Blood cultures pending --Urine analysis not suggestive of UTI -- Check TSH, vitamin B12 levels --Continue consult PT/OT Gentle IV fluids as needed Started on doxycycline for possible bronchitis Added Flonase for residual congestion H/O gastrointestinal tumor as per record --Recent CT abdomen: Interval development of multiple small peritoneal/omental nodules measuring up to 1.2 cm. These are highly suspicious for a neoplastic process and suggest peritoneal implants. Trace ascites. The primary tumor is not identified on this exam. Oncology consultation is recommended. If not recently performed, colonoscopy might be considered Family consider to follow-up as outpatient on prior admission per record PAF continue metoprolol INR therapeutic, continue warfarin INR 2.6 Hx of CVA w residual R sided weakness, dysarthria continue warfarin, statin DM II insulin controlled last a1c 7.4 on 04/28 adequate control lantus/novolog per protocol HLD chronic, stable continue statin COPD No signs of exacerbation continue home inhalers DVT Px: Coumadin Code Status FULL CODE Disposition PT/OT prior to discharge Admission and Anticipated Discharge Date Admission Date: May 04, 2023 Subjective Patient is seen and examined at bedside History limited due to significant slurred speech Reports having minimal cough Also reports constipation Denies any chest pain, dyspnea Generalized weakness better today Saturating well on room air Discussed with patient's daughter over the phone Review of Systems Review of Systems: All systems reviewed & are unremarkable except as noted in Subjective Physical Exam Physical Exam: Physical Exam: Vitals signs as noted above General Appearance:Moderately built and nourished, no apparent distress Head: normocephalic, Atraumatic Eyes: normal inspection, EOMI Neck: supple, Trachea midline Respiratory/Chest: Decreased breath sounds, CTA, No accessory muscle use Cardiovascular: S1, S2, No murmur Abdomen/GI:Soft, Non tender, Bowel sounds present Extremities/Musculoskeletal:normal inspection, no edema Neurologic/Psych:AAOX3, + chronic right-sided weakness, slurred speech Skin: normal color, warm Results & Data Results & Data Vital Signs (Past 12 Hours) Vital Signs Temp Pulse Pulse Pulse Resp BP Pulse Ox 05/05/23 15:13 36.8 C 68 18 123/86 94 05/05/23 11:11 36.5 C 57 L 18 149/75 H 96 05/05/23 09:00 58 L 05/05/23 07:30 37.7 C H 58 L 20 151/81 H 96 O2 Del Method 05/05/23 15:13 Room Air 05/05/23 11:11 Room Air 05/05/23 09:00 05/05/23 07:30 Room Air Laboratory Results Short CBC 05/05/23 Range/Units 05:55 WBC 4.49 L (4.8-10.8) K/ul Hgb 12.4 L (14.0-18.0) g/dl Hct 37.0 L (42.0-52.0) % Plt Count 211 (130-400) K/uL BMP 05/05/23 05:55 Sodium 141 Potassium 3.6 Chloride 107 Carbon Dioxide 30 BUN 12 Creatinine 0.77 Glucose 107 H Calcium 8.1 L Liver Function 05/05/23 Range/Units 05:55 Total Bilirubin 1.1 H (0.2-1.0) mg/dl AST 12 L (13-39) U/L ALT 14 (7-52) U/L Alkaline Phosphatase 37 (34-104) U/L Albumin 3.2 L (3.4-5.0) gm/dl (3) COPD (chronic obstructive pulmonary disease) COPD type: unspecified COPD Qualified Code(s): J44.9 - Chronic obstructive pulmonary disease, unspecified
[2023-05-05] MEDS: WARFARIN SOD 2.5 MG TAB PO SCH (17:19)
[2023-05-05] MEDS: DOCUSATE SODIUM 100 MG CAP PO SCH (20:16)
[2023-05-06 06:50] LABS: Hematocrit (blood only) 37.6 % (42.0-52.0); Hemoglobin 12.5 g/dl (14.0-18.0); Mean Corpuscular Hgb Conc 33.2 g/dL (32.0-36.0); Mean Corpuscular Volume 81.2 fL (80.0-100.0); Mean Platelet Volume 10.5 fL (9.4-12.4); Platelet Count 223 K/uL (130-400); RDW Coefficient of Variation 14.1 % (11.5-14.5); RDW Standard Deviation 41.4 fL (36.4-46.3); Red Blood Count 4.63 M/uL (4.70-6.10); White Blood Count 5.77 K/ul (4.8-10.8)
[2023-05-06 07:22] LABS: BUN Creatinine Ratio 17.1 (10-20); Calcium 8.3 mg/dl (8.6-10.3); Creatinine Clr Calc Pharmacy 72.9 ml/min; Est GFR (African American) 95.1 ml/min; Magnesium 1.8 mg/dl (1.7-2.4); Phosphorus 2.1 mg/dl (2.5-4.9); Potassium 3.8 mmol/L (3.5-5.1)
[2023-05-06 07:23] LABS: INR 2.5 (0.9-1.1); Prothrombin Time 25.7 Seconds (9.0-12.0)
[2023-05-06 07:36] LABS: Thyroid Stimulating Hormone 0.631 uIu/ml (0.300-4.500)
[2023-05-06] MEDS: LANTUS PER UNIT CHARGE SQ SCH (08:10)
[2023-05-06] MEDS: INSULIN ASPART PER UNIT CHARGE SC SCH ×4 (08:36→20:40)
[2023-05-06] MEDS: FLUTICASONE PROPIONATE NA SPR 16 GM BTL SCH (08:47)
[2023-05-06] MEDS: DOXYCYCLINE HYCLATE 100 MG CAP PO SCH ×2 (08:47→21:38)
[2023-05-06] MEDS: amLODIPine BESYLATE 5 MG TAB PO SCH (08:48)
[2023-05-06] MEDS: ATORVASTATIN 10 MG TAB PO SCH (08:48)
[2023-05-06] MEDS: FLUTICASONE/VILANTEROL 100/25MCG 14 PUFFS/INHALER INH SCH (08:49)
[2023-05-06] MEDS: DOCUSATE SODIUM 100 MG CAP PO SCH ×2 (08:49→21:38)
[2023-05-06] MEDS ORDERED: POTASSIUM PHOS 3 MMOL/1 ML INFUSION IV ONE (09:53)
[2023-05-06] MEDS ORDERED: POTASSIUM PHOSPHATE 21 MMOL in SODIUM CHLORIDE 0.9% 500 ML IV ONE (10:30)
[2023-05-06] MEDS: METOPROLOL SUCC 25MG EXT REL TAB PO SCH (12:03)
[2023-05-06] MEDS: SENNA 8.6 MG TAB PO SCH (12:04)
--- NOTE | 2023-05-06 16:08 | Hospitalist Progress Note ---
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 Generalized Weakness Recent covid -19 illness + test on 04/27 Deconditioning due to recent infection, comorbidities --CT Head:Chronic findings as above without acute intracranial abnormality. --CXR:Cardiomegaly with no active disease in the chest. -- Blood cultures:Negative to date --Urine analysis not suggestive of UTI -- Normal TSH, vitamin B12 levels --Continue consult PT/OT Gentle IV fluids as needed Continue doxycycline for possible bronchitis Added Flonase for nasal congestion Transfer to medical floor May benefit from home health H/O gastrointestinal tumor as per record --Recent CT abdomen: Interval development of multiple small peritoneal/omental nodules measuring up to 1.2 cm. These are highly suspicious for a neoplastic process and suggest peritoneal implants. Trace ascites. The primary tumor is not identified on this exam. Oncology consultation is recommended. If not recently performed, colonoscopy might be considered Family consider to follow-up as outpatient on prior admission per record PAF continue metoprolol INR therapeutic, continue warfarin INR 2.5 today Hx of CVA w residual R sided weakness, dysarthria continue warfarin, statin DM II insulin controlled last a1c 7.4 on 04/28 adequate control lantus/novolog per protocol HLD chronic, stable continue statin COPD No signs of exacerbation continue home inhalers DVT Px: Coumadin Code Status FULL CODE Disposition PT/OT prior to discharge Admission and Anticipated Discharge Date Admission Date: May 04, 2023 Subjective Patient is seen and examined at bedside History limited due to dysarthria Reports nasal congestion Also states having generalized weakness and feels tired Saturating well on room air No significant cough Denies any chest pain, dyspnea, nausea, vomiting, abdominal pain Review of Systems Review of Systems: All systems reviewed & are unremarkable except as noted in Subjective Physical Exam Physical Exam: Physical Exam: Vitals signs as noted above General Appearance:Moderately built and nourished, no apparent distress Head: normocephalic, Atraumatic Eyes: normal inspection, EOMI Neck: supple, Trachea midline Respiratory/Chest: Decreased breath sounds, CTA, No accessory muscle use Cardiovascular: S1, S2, No murmur Abdomen/GI:Soft, Non tender, Bowel sounds present Extremities/Musculoskeletal:normal inspection, no edema Neurologic/Psych:AAOX3, + chronic right-sided weakness, slurred speech Skin: normal color, warm Results & Data Results & Data Vital Signs (Past 12 Hours) Vital Signs Temp Pulse Pulse Resp BP Pulse Ox Pulse Ox 05/06/23 14:13 96 05/06/23 11:45 36.3 C L 73 21 116/73 95 05/06/23 10:00 62 05/06/23 07:41 36.3 C L 58 L 18 129/76 97 05/06/23 04:58 56 L O2 Del Method O2 Flow Rate 05/06/23 14:13 0 05/06/23 11:45 Room Air 05/06/23 10:00 05/06/23 07:41 Room Air 05/06/23 04:58 Laboratory Results Short CBC 05/06/23 Range/Units 06:09 WBC 5.77 (4.8-10.8) K/ul Hgb 12.5 L (14.0-18.0) g/dl Hct 37.6 L (42.0-52.0) % Plt Count 223 (130-400) K/uL BMP 05/06/23 06:09 Sodium 142 Potassium 3.8 Chloride 107 Carbon Dioxide 31 BUN 13 Creatinine 0.76 Glucose 110 H Calcium 8.3 L (3) COPD (chronic obstructive pulmonary disease) COPD type: unspecified COPD Qualified Code(s): J44.9 - Chronic obstructive pulmonary disease, unspecified
[2023-05-06] MEDS: WARFARIN SOD 2.5 MG TAB PO SCH (17:50)
[2023-05-07 07:23] LABS: Hematocrit (blood only) 41.9 % (42.0-52.0); Hemoglobin 14.1 g/dl (14.0-18.0); Mean Corpuscular Hemoglobin 27.7 pg (25.0-34.0); Mean Corpuscular Hgb Conc 33.7 g/dL (32.0-36.0); Mean Corpuscular Volume 82.3 fL (80.0-100.0); Mean Platelet Volume 10.2 fL (9.4-12.4); Platelet Count 261 K/uL (130-400); RDW Coefficient of Variation 14.2 % (11.5-14.5); RDW Standard Deviation 42.4 fL (36.4-46.3); Red Blood Count 5.09 M/uL (4.70-6.10); White Blood Count 7.45 K/ul (4.8-10.8)
[2023-05-07 07:30] LABS: BUN Creatinine Ratio 15.9 (10-20); Calcium 8.2 mg/dl (8.6-10.3); Est GFR (African American) 89.5 ml/min; Est GFR (Non-African American) 77.2 ml/min; Magnesium 1.9 mg/dl (1.7-2.4); Phosphorus 2.5 mg/dl (2.5-4.9); Potassium 4.1 mmol/L (3.5-5.1)
[2023-05-07 07:35] LABS: INR 2.3 (0.9-1.1); Prothrombin Time 24.2 Seconds (9.0-12.0)
[2023-05-07] MEDS: INSULIN ASPART PER UNIT CHARGE SC SCH ×4 (09:19→21:47)
[2023-05-07] MEDS: LANTUS PER UNIT CHARGE SQ SCH (09:19)
[2023-05-07] MEDS: FLUTICASONE/VILANTEROL 100/25MCG 14 PUFFS/INHALER INH SCH (09:32)
[2023-05-07] MEDS: amLODIPine BESYLATE 5 MG TAB PO SCH (09:33)
[2023-05-07] MEDS: DOXYCYCLINE HYCLATE 100 MG CAP PO SCH ×2 (09:33→21:47)
[2023-05-07] MEDS: DOCUSATE SODIUM 100 MG CAP PO SCH (09:33)
[2023-05-07] MEDS: ATORVASTATIN 10 MG TAB PO SCH (09:33)
[2023-05-07] MEDS: FLUTICASONE PROPIONATE NA SPR 16 GM BTL SCH (09:33)
[2023-05-07] MEDS: METOPROLOL SUCC 25MG EXT REL TAB PO SCH ×2 (12:40→12:47)
[2023-05-07] MEDS: SENNA 8.6 MG TAB PO SCH (12:40)
[2023-05-07] MEDS: SODIUM CHLORIDE 0.9% 1,000 ML IV SCH ×2 (13:54→21:47)
[2023-05-07] MEDS: WARFARIN SOD 2.5 MG TAB PO SCH (16:21)
[2023-05-07] MEDS: ADVANCED PROBIOTIC 1250 MG CAPSULE PO SCH (16:21)
--- NOTE | 2023-05-07 16:58 | Hospitalist Progress Note ---
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 Generalized Weakness Recent covid -19 illness + test on 04/27 Deconditioning due to recent infection, comorbidities --CT Head:Chronic findings as above without acute intracranial abnormality. --CXR:Cardiomegaly with no active disease in the chest. -- Blood cultures:Negative to date --Urine analysis not suggestive of UTI -- Normal TSH, vitamin B12 levels --Continue consult PT/OT Gentle IV fluids as needed Continue doxycycline for possible bronchitis Added Flonase for nasal congestion Case management to help with discharge planning Dehydration Check stool for C. difficile IV fluids as needed Monitor volume status H/O gastrointestinal tumor as per record --Recent CT abdomen: Interval development of multiple small peritoneal/omental nodules measuring up to 1.2 cm. These are highly suspicious for a neoplastic process and suggest peritoneal implants. Trace ascites. The primary tumor is not identified on this exam. Oncology consultation is recommended. If not recently performed, colonoscopy might be considered Family consider to follow-up as outpatient on prior admission per record PAF continue metoprolol INR therapeutic, continue warfarin INR 2.5 today Hx of CVA w residual R sided weakness, dysarthria continue warfarin, statin DM II insulin controlled last a1c 7.4 on 04/28 adequate control lantus/novolog per protocol HLD chronic, stable continue statin COPD No signs of exacerbation continue home inhalers DVT Px: Coumadin Code Status FULL CODE Disposition PT/OT prior to discharge Admission and Anticipated Discharge Date Admission Date: May 06, 2023 Subjective Patient is seen and examined at bedside History limited due to dysarthria Reports having loose bowel movements today RN noted patient to be hypertensive, tachycardic Clinically dehydrated on exam Reports only minimal cough Denies any nausea, vomiting, abdominal pain, chest pain, dyspnea Saturating well on room air Review of Systems Review of Systems: All systems reviewed & are unremarkable except as noted in Subjective Physical Exam Physical Exam: Physical Exam: Vitals signs as noted above General Appearance:Moderately built and nourished, no apparent distress Head: normocephalic, Atraumatic Eyes: normal inspection, EOMI Neck: supple, Trachea midline Respiratory/Chest: Decreased breath sounds, CTA, No accessory muscle use Cardiovascular: S1, S2, No murmur Abdomen/GI:Soft, Non tender, Bowel sounds present Extremities/Musculoskeletal:normal inspection, no edema Neurologic/Psych:AAOX3, + chronic right-sided weakness, slurred speech Skin: normal color, warm Results & Data Results & Data Vital Signs (Past 12 Hours) Vital Signs Temp Pulse Resp BP Pulse Ox O2 Del Method 05/07/23 15:19 36.4 C L 85 16 127/76 94 Room Air 05/07/23 12:41 114 H 99/63 L 05/07/23 08:00 36.7 C 93 H 16 123/76 96 Room Air Laboratory Results Short CBC 05/07/23 Range/Units 06:31 WBC 7.45 (4.8-10.8) K/ul Hgb 14.1 (14.0-18.0) g/dl Hct 41.9 L (42.0-52.0) % Plt Count 261 (130-400) K/uL BMP 05/07/23 06:31 Sodium 141 Potassium 4.1 Chloride 106 Carbon Dioxide 29 BUN 14 Creatinine 0.88 Glucose 136 H Calcium 8.2 L (3) COPD (chronic obstructive pulmonary disease) COPD type: unspecified COPD Qualified Code(s): J44.9 - Chronic obstructive pulmonary disease, unspecified
[2023-05-08 07:23] LABS: Hematocrit (blood only) 43.4 % (42.0-52.0); Mean Corpuscular Hgb Conc 32.3 g/dL (32.0-36.0); Mean Corpuscular Volume 83.6 fL (80.0-100.0); Mean Platelet Volume 10.4 fL (9.4-12.4); Platelet Count 272 K/uL (130-400); RDW Coefficient of Variation 14.2 % (11.5-14.5); Red Blood Count 5.19 M/uL (4.70-6.10); White Blood Count 6.41 K/ul (4.8-10.8)
[2023-05-08 07:51] LABS: BUN Creatinine Ratio 17.6 (10-20); Calcium 7.8 mg/dl (8.6-10.3); Creatinine Clr Calc Pharmacy 65.2 ml/min; Est GFR (African American) 90.8 ml/min; Est GFR (Non-African American) 78.3 ml/min; Potassium 3.8 mmol/L (3.5-5.1)
[2023-05-08 07:53] LABS: INR 2.4 (0.9-1.1); Prothrombin Time 24.5 Seconds (9.0-12.0)
[2023-05-08] MEDS: FLUTICASONE PROPIONATE NA SPR 16 GM BTL SCH (09:10)
[2023-05-08] MEDS: ADVANCED PROBIOTIC 1250 MG CAPSULE PO SCH (09:10)
[2023-05-08] MEDS: amLODIPine BESYLATE 5 MG TAB PO SCH (09:10)
[2023-05-08] MEDS: ATORVASTATIN 10 MG TAB PO SCH (09:10)
[2023-05-08] MEDS: DOXYCYCLINE HYCLATE 100 MG CAP PO SCH ×2 (09:10→20:24)
[2023-05-08] MEDS: FLUTICASONE/VILANTEROL 100/25MCG 14 PUFFS/INHALER INH SCH (09:11)
[2023-05-08] MEDS: LANTUS PER UNIT CHARGE SQ SCH (09:13)
[2023-05-08] MEDS: INSULIN ASPART PER UNIT CHARGE SC SCH ×4 (09:16→21:46)
[2023-05-08] MEDS: METOPROLOL SUCC 25MG EXT REL TAB PO SCH (12:50)
[2023-05-08] MEDS: WARFARIN SOD 2.5 MG TAB PO SCH (16:13)
--- NOTE | 2023-05-08 17:00 | Hospitalist Progress Note ---
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 Generalized Weakness Recent covid -19 illness + test on 04/27 Deconditioning due to recent infection, comorbidities --CT Head:Chronic findings as above without acute intracranial abnormality. --CXR:Cardiomegaly with no active disease in the chest. -- Blood cultures:Negative to date --Urine analysis not suggestive of UTI -- Normal TSH, vitamin B12 levels --Continue consult PT/OT Gentle IV fluids as needed Continue doxycycline for possible bronchitis Added Flonase for nasal congestion Case management to help with discharge planning Plan to discharge to rehab facility when accepted Dehydration Check stool for C. 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 These are highly suspicious for a neoplastic process and suggest peritoneal implants. Trace ascites. The primary tumor is not identified on this exam. Oncology consultation is recommended. If not recently performed, colonoscopy might be considered Family consider to follow-up as outpatient on prior admission per record PAF continue metoprolol INR therapeutic, continue warfarin INR 2.4 today Hx of CVA w residual R sided weakness, dysarthria continue warfarin, statin DM II insulin controlled last a1c 7.4 on 04/28 adequate control lantus/novolog per protocol HLD chronic, stable continue statin COPD No signs of exacerbation continue home inhalers DVT Px: Coumadin Code Status FULL CODE Disposition Rehab as able Admission and Anticipated Discharge Date Admission Date: May 06, 2023 Subjective Patient is seen and examined at bedside History limited due to dysarthria States feeling much better Diarrhea resolved No new complaints Waiting for rehab placement Denies any nausea, vomiting, abdominal pain, chest pain, dyspnea Saturating well on room air Review of Systems Review of Systems: All systems reviewed & are unremarkable except as noted in Subjective Physical Exam Physical Exam: Physical Exam: Vitals signs as noted above General Appearance:Moderately built and nourished, no apparent distress Head: normocephalic, Atraumatic Eyes: normal inspection, EOMI Neck: supple, Trachea midline Respiratory/Chest: Decreased breath sounds, CTA, No accessory muscle use Cardiovascular: S1, S2, No murmur Abdomen/GI:Soft, Non tender, Bowel sounds present Extremities/Musculoskeletal:normal inspection, no edema Neurologic/Psych:AAOX3, + chronic right-sided weakness, slurred speech Skin: normal color, warm Results & Data Results & Data Vital Signs (Past 12 Hours) Vital Signs Temp Pulse Resp BP Pulse Ox O2 Del Method 05/08/23 16:12 36.4 C L 62 16 131/55 L 96 Room Air 05/08/23 12:49 66 107/67 05/08/23 07:55 36.4 C L 96 H 16 118/78 95 Room Air Laboratory Results Short CBC 05/08/23 Range/Units 06:43 WBC 6.41 (4.8-10.8) K/ul Hgb 14.0 (14.0-18.0) g/dl Hct 43.4 (42.0-52.0) % Plt Count 272 (130-400) K/uL BMP 05/08/23 06:43 Sodium 142 Potassium 3.8 Chloride 109 H Carbon Dioxide 27 BUN 15 Creatinine 0.85 Glucose 126 H Calcium 7.8 L (3) COPD (chronic obstructive pulmonary disease) COPD type: unspecified COPD Qualified Code(s): J44.9 - Chronic obstructive pulmonary disease, unspecified
[2023-05-09 08:12] LABS: INR 2.4 (0.9-1.1); Prothrombin Time 25.1 Seconds (9.0-12.0)
[2023-05-09] MEDS: ADVANCED PROBIOTIC 1250 MG CAPSULE PO SCH (08:21)
[2023-05-09] MEDS: amLODIPine BESYLATE 5 MG TAB PO SCH (08:21)
[2023-05-09] MEDS: ATORVASTATIN 10 MG TAB PO SCH (08:21)
[2023-05-09] MEDS: FLUTICASONE/VILANTEROL 100/25MCG 14 PUFFS/INHALER INH SCH (08:21)
[2023-05-09] MEDS: DOXYCYCLINE HYCLATE 100 MG CAP PO SCH (08:21)
[2023-05-09] MEDS: FLUTICASONE PROPIONATE NA SPR 16 GM BTL SCH (08:22)
[2023-05-09] MEDS: LANTUS PER UNIT CHARGE SQ SCH (08:23)
[2023-05-09] MEDS: INSULIN ASPART PER UNIT CHARGE SC SCH ×2 (08:24→12:16)
--- NOTE | 2023-05-09 12:04 | Hospitalist Progress Note ---
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 Generalized Weakness Recent covid -19 illness + test on 04/27 Deconditioning due to recent infection, comorbidities --CT Head:Chronic findings as above without acute intracranial abnormality. --CXR:Cardiomegaly with no active disease in the chest. -- Blood cultures:Negative to date --Urine analysis not suggestive of UTI -- Normal TSH, vitamin B12 levels --Continue consult PT/OT Gentle IV fluids as needed Continue doxycycline for possible bronchitis Added Flonase for nasal congestion Case management to help with discharge planning Plan to discharge to rehab facility when accepted Dehydration Check stool for C. 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 These are highly suspicious for a neoplastic process and suggest peritoneal implants. Trace ascites. The primary tumor is not identified on this exam. Oncology consultation is recommended. If not recently performed, colonoscopy might be considered Family consider to follow-up as outpatient on prior admission per record PAF continue metoprolol INR therapeutic, continue warfarin INR 2.4 today Hx of CVA w residual R sided weakness, dysarthria continue warfarin, statin DM II insulin controlled last a1c 7.4 on 04/28 adequate control lantus/novolog per protocol HLD chronic, stable continue statin COPD No signs of exacerbation continue home inhalers DVT Px: Coumadin Code Status FULL CODE Disposition Rehab as able Admission and Anticipated Discharge Date Admission Date: May 06, 2023 Subjective Patient is seen and examined at bedside History limited due to dysarthria States feeling much better Diarrhea resolved No new complaints Waiting for rehab placement Denies any nausea, vomiting, abdominal pain, chest pain, dyspnea Saturating well on room air Review of Systems Review of Systems: All systems reviewed & are unremarkable except as noted in Subjective Physical Exam Physical Exam: Physical Exam: Vitals signs as noted above General Appearance:Moderately built and nourished, no apparent distress Head: normocephalic, Atraumatic Eyes: normal inspection, EOMI Neck: supple, Trachea midline Respiratory/Chest: Decreased breath sounds, CTA, No accessory muscle use Cardiovascular: S1, S2, No murmur Abdomen/GI:Soft, Non tender, Bowel sounds present Extremities/Musculoskeletal:normal inspection, no edema Neurologic/Psych:AAOX3, + chronic right-sided weakness, slurred speech Skin: normal color, warm Results & Data Results & Data Vital Signs (Past 12 Hours) Vital Signs Temp Pulse Resp BP Pulse Ox O2 Del Method 05/09/23 07:45 36.7 C 62 15 133/78 96 Room Air (3) COPD (chronic obstructive pulmonary disease) COPD type: unspecified COPD Qualified Code(s): J44.9 - Chronic obstructive pulmonary disease, unspecified
--- NOTE | 2023-05-09 12:59 | Discharge Summary ---
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 Of significance patient recently hospitalized 04/27 to 04/30 secondary to COVID-19. He was treated with supportive care. He was started on remdesivir but did not require any IV steroids. He was generally weak and was seen and evaluated by PT and OT. Rehab placement was discussed by attending however family and patient wished to be discharged home. PT recommended patient safe to d/c to home. He did not have any services arranged at discharge. Also of significance patient did undergo CT abdomen pelvis during hospital stay and incidentally noted multiple small peritoneal/omental nodules measuring up to 1.2 cm which was highly suspicious for neoplastic process and peritoneal implants. 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 Daughter wished to follow-up results with [facility]. Pt states he feels generally weak. He hasn't been eating and drinking well since discharged to home. He lives alone. Denies f/c/s, chest pain, sob, n/v/d, abd pain. He continues to have congestion and mild cough. He is not using anything over the counter. In ED pt was hemodynamically stable. Lab work was reviewed independently interpreted by myself. CBC and CMP were generally unremarkable. He did have mildly elevated glucose at 156 and elevated total bilirubin at 1.2. His troponin and lipase were unremarkable. Urinalysis negative for infection. CT head negative for acute hemorrhage or abnormality. Chest x-ray revealed cardiomegaly without any overt cardiopulmonary disease. Admission Exam Per Admitting Provider Constitutional: elderly, M, [place], vitals as above, NAD, sitting up in bed, pleasant, conversing easily Head: Normocephalic, Atraumatic Eyes: PERRL, conjunctivae normal, anicteric sclerae ENMT: external ear and nose normal, +rhinorrhea, engorged nasal turbinates, oropharynx dry Neck: trachea midline, no thyromegaly normal visual inspection Respiratory: normal respiratory effort, lungs clear to auscultation, no wheeze, rales, rhonchi. Normal insp/exp effort, no accessory muscle use Cardiovascular: RRR, no murmur, no edema Vessels: no JVD or carotid bruit Chest: normal inspection of chest Abdomen: normal bowel sounds, soft, nontender, no hepatosplenomegaly Musculoskeletal: no cyanosis or clubbing, extremities AROM x 4 Skin: no rashes, warm and dry normal turgor Neurologic: PERRL, EOMI, accommodation nl, no face palsy, no dysarthria CN's II-XI intact bilaterally and moves all extremities Psychiatric: A+Ox3 and basics, euthymic affect Lymphatic: no cervical or axillary lymphadenopathy : deferred Principal Dx & Hospital Course #1 = Principal Diagnosis (1) COVID-19: (2) Generalized weakness: (3) COPD (chronic obstructive pulmonary disease): (4) Paroxysmal atrial fibrillation: (5) History of cardioembolic cerebrovascular accident (CVA): Plan This is an 87-year-old male who has a significant past medical history of PAF anticoagulated on Coumadin, 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 Head with chronic findings as above without acute intracranial abnormality. CXR with cardiomegaly, no active disease in the chest. Blood cultures negative to date. Urinalysis not suggestive of UTI. Normal TSH, vitamin B12 levels. Completed doxycycline course for possible bronchitis in setting of recent covid-19 infection. Flonase was added for nasal congestion. Patient is off of isolation precautions and PT/OT recommending rehab. 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 These results have previous been discussed with patient and family who did not want to pursue workup at that time but may follow-up in clinic setting. CD of imaging was provided to family on previous admission. Patient is comfortable and hemodynamically stable at time of discharge to [facility]. Discharge Exam General Appearance:Moderately built and nourished, no apparent distress Head: normocephalic, Atraumatic Eyes: normal inspection, EOMI Neck: supple, Trachea midline Respiratory/Chest: Decreased breath sounds, CTA, No accessory muscle use Cardiovascular: S1, S2, No murmur Abdomen/GI:Soft, Non tender, Bowel sounds present Extremities/Musculoskeletal:normal inspection, no edema Neurologic/Psych:AAOX3, + chronic right-sided weakness, slurred speech Skin: normal color, warm Updated Medication List Medication Instructions Recorded Confirmed Type docusate sodium 100 mg capsule 100 mg PO QAM 09/11/19 05/04/23 History (Colace) atorvastatin 20 mg tablet 10 mg PO QAM 11/14/19 05/04/23 History sennosides 8.6 mg tablet 17.2 mg PO .MIDDAY 10/11/20 05/04/23 History amlodipine 10 mg tablet 10 mg PO QAM 01/24/21 05/04/23 History fluticasone 250 mcg-salmeterol 50 1 inh inhalation BID #90 puffs 11/28/22 05/04/23 Rx mcg/dose blistr powdr for inhalation (Wixela Inhub) insulin aspart U-100 100 unit/mL 1 sliding scale dose subcut 12/28/22 05/04/23 History subcutaneous cartridge (Novolog USEASDIRECTD PenFill U-100 Insulin aspart) warfarin 2.5 mg tablet 2.5 mg PO DIRECTED 12/28/22 05/04/23 History Mucinex 1 tab PO DAILY PRN congestion 04/27/23 05/04/23 History metoprolol succinate 25 mg 25 mg PO .MIDDAY 04/27/23 05/04/23 History tablet,extended release 24 hr insulin glargine 100 unit/mL (3 8 unit (0.08 mL) SC HS #15 mL 04/30/23 05/04/23 Rx mL) subcutaneous pen (Lantus Solostar U-100 Insulin) fluticasone propionate 50 2 spray NA DAILY #16 grams 05/09/23 Rx mcg/actuation nasal spray,suspension Hospital Stay Data Consultations 05/04/23 14:31 ED Decision to Admit Stat Diagnostic Imagining Performed 05/04/23 12:54 CT head/brain wo con Stat Pending Results Patient Have Any Pending Studies at Discharge: No Discharge Instructions Given to Patient (Per Discharging Provider) MEDICATION CHANGES: Continue Flonase 2 sprays daily as needed for congestion/allergies SUMMARY OF TEST RESULTS: Patient was hospitalized for generalized weakness in setting of covid-19. CT Head:Chronic findings as above without acute intracranial abnormality. CXR:Cardiomegaly with no active disease in the chest. Blood cultures with no growth to date Normal TSH, vitamin B12 levels Completed doxycycline course for possible bronchitis. PENDING TEST RESULTS: None RECOMMENDATIONS FOR FOLLOW-UP: Follow up with PCP as scheduled. Continue medication regimen as scheduled aside from changes noted above. Recent CT abd showing interval development of multiple small peritoneal/omental nodules measuring up to 1.2 cm that has been previously discussed with family on last admission - Family aware and know to pursue out-patient work up per patient's wishes OTHER INSTRUCTIONS: Seek medical attention if you have: * temperature above 101 * chest pain or trouble breathing * abdominal pain, nausea, vomiting * diarrhea, dark stools or bloody stools * any unanswered questions or concerns Call 911 if symptoms are severe. Please take good care of yourself. Call if you have any questions or problems. You can reach a [facility] hospitalist on duty at [facility] 24 hours a day by calling [phone]. Total Time Total Time Spent Total Time Spent (In Minutes): 40 Supervising Physician Co-Signing Physician Notes Patient is seen and examined at bedside. Offers no new complaints. Saturating well on room air. Plan to be discharged to rehab facility today. Physical exam remains unchanged from yesterday. I personally reviewed the record. Patient is interviewed and examined at bedside. Patient's care is coordinated with Brittney Landry PA-C. Please refer to the documentation above for details of patient's presentation and for discussion of other issues.
[2023-05-09] MEDS: METOPROLOL SUCC 25MG EXT REL TAB PO SCH (13:42)
== END 2023-05-09 15:13 | DRG 178 ==
LOC: ED 12:32 → EDINP 12:32 → SUATTDRO 14:49 → 2S 18:24 → 3N 05-06 16:51

== ENCOUNTER 2023-08-22 00:43 | Inpatient (IN) ==
--- NOTE | 2023-08-22 00:58 | Emergency Department Note ---
Impression & Plan Altered mental status, Elevated troponin, Fall ED Provider Note NAME: LIGIA NOBLES Jr AGE: 87 SEX: M : 1935 ARRIVES VIA: Ambulance INFORMANT: Patient, EMS ED PROVIDER(S): Shaheed Farris DO CHIEF COMPLAINT: Fall HPI: Patient is an 87-year-old male with a past medical history of CVA, expressive aphasia, asthma who presents to the ER following being found on the ground by neighbors. He was brought in by EMS. EMS and neighbors were unsure of his baseline. Patient denies any headache, chest pain, or belly pain. History is limited due to expressive aphasia. ADDITIONAL HISTORY OBTAINED: Per HPI Chronic Medical/Social Conditions Affecting Care: Per HPI PAST MEDICAL HISTORY:See Below PAST SURGICAL HISTORY:See Below FAMILY HISTORY:See Below SOCIAL HISTORY:See Below HOME MEDICATIONS:See Below ALLERGIES:See Below VITALS:See Below PHYSICAL EXAMINATION: GENERAL: Sitting up in bed, alert, well appearing, well nourished, no distress, non-toxic HEAD: NC/AT EYE EXAM: normal conjunctiva. PERRL and EOM's grossly intact. OROPHARYNX: no exudate, no erythema, lips, buccal mucosa, and tongue normal and mucous membranes are moist NECK: supple, no nuchal rigidity, no adenopathy, non-tender LUNGS: Clear to auscultation. Normal chest wall mechanics HEART: no murmurs, S1 normal and S2 normal ABDOMEN: abdomen soft, non-tender, normo-active bowel sounds, no masses, no rebound or guarding. BACK: Back is symmetrical on inspection and there is no deformity, no midline tenderness, no CVA tenderness. UPPER EXTREMITIES: upper extremities are grossly normal. LOWER EXTREMITIES: No pitting edema. NEURO EXAM: Oriented to person but difficulty expressing anything else, cranial nerves II-XII intact, garbled speech with difficulty getting words out, no weakness of arms, no weakness of legs. No drift. Finger to nose intact. Gross sensation intact. MEDICAL DECISION MAKING: Patient is an 87-year-old male who was found down per EMS outside his door by neighbors confused. IV was established blood work was obtained. Patient is oriented to person and has an old stroke with expressive aphasia but does appear to be confused as well. Labs show no significant leukocytosis or anemia. INR is therapeutic at 3.0. BMP with slightly elevated glucose at 170. Troponin was elevated at 32 up from his baseline of what appears to be 20. Viral panel is negative. CT of the head and cervical spine was unremarkable. Chest x-ray was clean. Discussed case with the hospitalist for further evaluation management treatment due to the elevated troponin and confusion and fall of her syncope Consults/Care Managements Discussions: Per [facility] Triage Nursing notes reviewed. [Limited review of prior medical records performed] Vital Signs: reviewed and remarkable for [no significant abnormalities] Differential diagnosis: Differential diagnoses include major intracranial, cervical, spinal, thoracic, abdominal, pelvic and neurologic injury. Fracture, contusion, sprain, strain, laceration, abrasions included as well. ER treatment provided: See below Diagnostics interpreted by me include EKG and cardiac monitoring as listed below: -Cardiac Monitoring: An order was placed for continuous cardiac monitoring. The monitor shows a rate of 110 with sinus rhythm. -ECG: Accelerated junctional rhythm rate of 112 Normal axis No PVCs QTc 444 -Laboratory studies:Interpreted by me as stated above in MDM and shown below. Imaging studies: Xrays: As interpreted by me: Portable AP upright 1 view of the chest shows no focal infiltrate CTs show: CT head and cervical spine shows no acute pathology Procedures:none Critical Care: None Past Med/Surg History Medical History Paroxysmal atrial fibrillation Confusion Acute and chronic respiratory failure with hypoxia Acute exacerbation of chronic obstructive pulmonary disease Acute hypoxemic respiratory failure CVA (cerebral vascular accident) DVT prophylaxis Gout BPH (benign prostatic hyperplasia) Diabetes mellitus, type 2 History of stomach cancer Hearing deficit Hypertension Hyperlipidemia Transient ischemic attack (TIA) Stroke Atrial fibrillation Asthma COPD (chronic obstructive pulmonary disease) HTN (hypertension) History of multiple strokes First degree AV block Pneumonia Nasal polyposis Chronic pansinusitis Dysarthria Dysphagia as late effect of cerebrovascular accident (CVA) Surgical History History of esophagogastroduodenoscopy (EGD) History of appendectomy History of abdominal surgery History of tooth extraction History of nasal polypectomy History of bilateral cataract extraction History of prostate surgery Status post insertion of percutaneous endoscopic gastrostomy (PEG) tube History of gastric restrictive surgery Family History Brother Family history of diabetes mellitus Other No family history of adverse response to anesthesia No family history of bleeding disorder Social History Smoking Status: Unknown if ever smoked Second Hand Exposure: No; Do You Dip or Chew Tobacco: No; Hx Alcohol Use: No Hx Substance Use: No Preferred Language: Luxembourgish Communication Ability: Impaired Communication Ability Comment: daughter needs to be with pt Analytics Analyst Required: No Beliefs That Will Affect Care: None marital status: Current Living Situation: Alone Current Living Situation Comment: [place] current occupational status: retired Feels Safe at Home: Yes Assistive Devices: Cane, Walker and Other Allergies Allergies Allergy/AdvReac Type Severity Reaction Status Date / Time No Known Allergies Allergy Verified 08/22/23 01:44 Home Meds Home Medications Medication Instructions Recorded Confirmed atorvastatin 20 mg tablet 10 mg PO QAM 11/14/19 08/22/23 sennosides 8.6 mg tablet 17.2 mg PO QDL 10/11/20 08/22/23 insulin aspart U-100 100 unit/mL 1 sliding scale dose subcut 12/28/22 08/22/23 subcutaneous cartridge (Novolog USEASDIRECTD PenFill U-100 Insulin aspart) warfarin 2.5 mg tablet 2.5 mg PO QPM 12/28/22 08/22/23 metoprolol succinate 25 mg 25 mg PO QDL 04/27/23 08/22/23 tablet,extended release 24 hr guaifenesin 600 mg tablet, 600 mg PO Q12H PRN Congestion 08/22/23 08/22/23 extended release 12 hr (Mucinex) Previous Rx's Medication Instructions Recorded fluticasone 250 mcg-salmeterol 50 1 inh inhalation BID #90 puffs 11/28/22 mcg/dose blistr powdr for inhalation (Wixela Inhub) insulin glargine 100 unit/mL (3 8 unit (0.08 mL) SC HS #15 mL 04/30/23 mL) subcutaneous pen (Lantus Solostar U-100 Insulin) fluticasone propionate 50 2 spray NA DAILY #16 grams 05/09/23 mcg/actuation nasal spray,suspension Results & Data (ED) Vital Signs Vital Signs - 24 hr 08/22/23 00:45 08/22/23 00:51 08/22/23 01:00 Temperature 36.8 C Temperature Source Oral Pulse Rate 113 H 114 H 112 H Pulse Rate [Apical] Pulse Rate from SpO2 Sensor 112 H Respiratory Rate 24 23 Blood Pressure 122/87 119/90 Blood Pressure [Right Arm] Blood Pressure Mean 98 99 Blood Pressure Mean [Right Arm] Pulse Oximetry 96 96 Oxygen Delivery Method Room Air Room Air Sepsis Recent Fever Within 48 Hours No Sepsis New/Unexplained Change in Mental Status No Sepsis Action Taken by Nursing Physician Notified 08/22/23 01:24 08/22/23 02:38 Temperature Temperature Source Pulse Rate Pulse Rate [Apical] 101 H Pulse Rate from SpO2 Sensor Respiratory Rate 19 Blood Pressure Blood Pressure [Right Arm] 138/99 Blood Pressure Mean Blood Pressure Mean [Right Arm] 112 Pulse Oximetry 97 94 Oxygen Delivery Method Room Air Room Air Sepsis Recent Fever Within 48 Hours Sepsis New/Unexplained Change in Mental Status Sepsis Action Taken by Nursing Laboratory Data 08/22/23 00:56 08/22/23 00:56 Lab Results 08/22/23 08/22/23 08/22/23 Range/Units 00:56 00:57 01:04 WBC 10.22 (4.8-10.8) K/ul RBC 5.14 (4.70-6.10) M/uL Hgb 13.6 L (14.0-18.0) g/dl Hct 42.7 (42.0-52.0) % MCV 83.1 (80.0-100.0) fL MCH 26.5 (25.0-34.0) pg MCHC 31.9 L (32.0-36.0) g/dL RDW Std Deviation 46.0 (36.4-46.3) fL RDW Coeff of Mainor 15.3 H (11.5-14.5) % Plt Count 234 (130-400) K/uL MPV 10.4 (9.4-12.4) fL Immature Gran % (Auto) 0.2 % Neut % (Auto) 69.4 % Lymph % (Auto) 16.3 % [place] % (Auto) 10.8 % Eos % (Auto) 2.9 % Baso % (Auto) 0.4 % Neut # (Auto) 7.09 H (1.40-6.50) K/uL Lymph # (Auto) 1.67 (1.20-3.40) K/uL [place] # (Auto) 1.10 H (0.11-0.59) K/uL Eos # (Auto) 0.30 (0.00-0.50) K/uL Baso # (Auto) 0.04 (0.00-0.20) K/uL Immature Gran # (Auto) 0.02 (0.01-0.20) K/uL PT 30.9 H (9.0-12.0) Seconds INR 3.0 H (0.9-1.1) APTT 44 H (21-31) Seconds PTT Ratio 1.6 Sodium 143 (136-145) mmol/L Potassium 3.7 (3.5-5.1) mmol/L Chloride 110 H (98-107) mmol/L Carbon Dioxide 26 (21-32) mmol/L Anion Gap 7 (3-11) BUN 19 (6-23) mg/dl Creatinine 1.13 (0.6-1.4) mg/dl Est Cr Clr Drug Dosing 49.1 ml/min Est GFR ( Amer) 67.4 ml/min Est GFR (Non-Af Amer) 58.1 ml/min BUN/Creatinine Ratio 16.8 (10-20) Glucose 177 H (70-99(Fasting)) mg/dl POC Glucose 195 H (70-99) mg/dl Calcium 8.9 (8.6-10.3) mg/dl Total Bilirubin 1.0 (0.2-1.0) mg/dl AST 15 (13-39) U/L ALT 17 (7-52) U/L Alkaline Phosphatase 45 (34-104) U/L Troponin I High Sens 32.1 H (0-20) pg/ml Total Protein 6.1 (6.0-8.3) gm/dl Albumin 3.7 (3.4-5.0) gm/dl Globulin 2.4 L (2.5-4.0) gm/dl Albumin/Globulin Ratio 1.5 (0.9-2) Lipase 11 (11-82) U/L Adenovirus (PCR) Not Detected (NotDetected) B. pertussis DNA (PCR) Not Detected (NotDetected) B.parapertussis DNA PCR Not Detected (NotDetected) C. pneumoniae DNA (PCR) Not Detected (NotDetected) Coronavirus OC43 (PCR) Not Detected (NotDetected) Coronavirus HKU1 (PCR) Not Detected (NotDetected) Coronavirus 229E (PCR) Not Detected (NotDetected) SARS-CoV-2 (PCR) Not Detected (NotDetected) Coronavirus NL63 (PCR) Not Detected (NotDetected) Human Metapneumovir PCR Not Detected (NotDetected) Influenza Type A (PCR) Not Detected (NotDetected) Influenza Type B (PCR) Not Detected (NotDetected) M. pneumoniae (PCR) Not Detected (NotDetected) Parainfluenza 1 (PCR) Not Detected (NotDetected) Parainfluenza 2 (PCR) Not Detected (NotDetected) Parainfluenza 3 (PCR) Not Detected (NotDetected) Parainfluenza 4 (PCR) Not Detected (NotDetected) RSV (PCR) Not Detected (NotDetected) Entero/Rhino (PCR) Not Detected (NotDetected) 08/22/23 Range/Units 03:10 WBC (4.8-10.8) K/ul RBC (4.70-6.10) M/uL Hgb (14.0-18.0) g/dl Hct (42.0-52.0) % MCV (80.0-100.0) fL MCH (25.0-34.0) pg MCHC (32.0-36.0) g/dL RDW Std Deviation (36.4-46.3) fL RDW Coeff of Mainor (11.5-14.5) % Plt Count (130-400) K/uL MPV (9.4-12.4) fL Immature Gran % (Auto) % Neut % (Auto) % Lymph % (Auto) % [place] % (Auto) % Eos % (Auto) % Baso % (Auto) % Neut # (Auto) (1.40-6.50) K/uL Lymph # (Auto) (1.20-3.40) K/uL [place] # (Auto) (0.11-0.59) K/uL Eos # (Auto) (0.00-0.50) K/uL Baso # (Auto) (0.00-0.20) K/uL Immature Gran # (Auto) (0.01-0.20) K/uL PT (9.0-12.0) Seconds INR (0.9-1.1) APTT (21-31) Seconds PTT Ratio Sodium (136-145) mmol/L Potassium (3.5-5.1) mmol/L Chloride (98-107) mmol/L Carbon Dioxide (21-32) mmol/L Anion Gap (3-11) BUN (6-23) mg/dl Creatinine (0.6-1.4) mg/dl Est Cr Clr Drug Dosing ml/min Est GFR ( Amer) ml/min Est GFR (Non-Af Amer) ml/min BUN/Creatinine Ratio (10-20) Glucose (70-99(Fasting)) mg/dl POC Glucose (70-99) mg/dl Calcium (8.6-10.3) mg/dl Total Bilirubin (0.2-1.0) mg/dl AST (13-39) U/L ALT (7-52) U/L Alkaline Phosphatase (34-104) U/L Troponin I High Sens 39.0 H (0-20) pg/ml Total Protein (6.0-8.3) gm/dl Albumin (3.4-5.0) gm/dl Globulin (2.5-4.0) gm/dl Albumin/Globulin Ratio (0.9-2) Lipase (11-82) U/L Adenovirus (PCR) (NotDetected) B. pertussis DNA (PCR) (NotDetected) B.parapertussis DNA PCR (NotDetected) C. pneumoniae DNA (PCR) (NotDetected) Coronavirus OC43 (PCR) (NotDetected) Coronavirus HKU1 (PCR) (NotDetected) Coronavirus 229E (PCR) (NotDetected) SARS-CoV-2 (PCR) (NotDetected) Coronavirus NL63 (PCR) (NotDetected) Human Metapneumovir PCR (NotDetected) Influenza Type A (PCR) (NotDetected) Influenza Type B (PCR) (NotDetected) M. pneumoniae (PCR) (NotDetected) Parainfluenza 1 (PCR) (NotDetected) Parainfluenza 2 (PCR) (NotDetected) Parainfluenza 3 (PCR) (NotDetected) Parainfluenza 4 (PCR) (NotDetected) RSV (PCR) (NotDetected) Entero/Rhino (PCR) (NotDetected) Imaging Data Radiologist's Impression: Cervical Spine CT 08/22/23 00:53 Exam(s): CT C SPINE EXAM: CT Cervical Spine Without Intravenous Contrast CLINICAL HISTORY: Reason for exam: fall. TECHNIQUE: Axial computed tomography images of the cervical spine without intravenous contrast. CTDI is 26.47 mGy and DLP is 500 mGy-cm. Automated exposure control was utilized for the study. A dose lowering technique was utilized adhering to the principles of ALARA. COMPARISON: No relevant prior studies available. FINDINGS: Vertebrae: Unremarkable. No acute fracture. Discs/spinal canal/neural foramina: Advanced multilevel degenerative disc disease. No spinal canal stenosis. Soft tissues: Unremarkable. IMPRESSION: No acute findings in the cervical spine. Electronically signed by: Timo Kay MD 08/22/23 02:[address] 08/22/23 00:53 Exam(s): CT HEAD Without Contrast EXAM: CT Head Without Intravenous Contrast CLINICAL HISTORY: Reason for exam: fall. TECHNIQUE: Axial computed tomography images of the head/brain without intravenous contrast. CTDI is 38.03 mGy and DLP is 624.41 mGy-cm. Automated exposure control was utilized for the study. A dose lowering technique was utilized adhering to the principles of ALARA. COMPARISON: CT July 06, 2023 FINDINGS: Brain: Extensive chronic, small vessel ischemic changes in the white matter. Old lacunar infarct in the left basal ganglia. No acute intracranial hemorrhage, abnormal mass-effect or edema. Ventricles: Unremarkable. No ventriculomegaly. Bones/joints: Unremarkable. No acute fracture. Soft tissues: Unremarkable. Sinuses: Extensive chronic opacification of the maxillary and ethmoid sinuses. Mastoid air cells: Unremarkable as visualized. No mastoid effusion. IMPRESSION: No acute findings in the head/brain. Electronically signed by: Timo Kay MD 08/22/23 02:22 AM Discharge Plan Visit Data Chief Complaint: Fall Stated Complaint: GLF, UNWITNESSED, MOANING ED Provider: Shaheed Farris Discharge Problem: Altered mental status, Elevated troponin, Fall Forms Stand Alone Forms: My [facility] Prescriptions Prescriptions: No Action fluticasone propion-salmeterol [Wixela Inhub] 250-50 mcg/dose blister with device 1 inh inhalation BID Qty: 90 3RF sennosides 8.6 mg tablet 17.2 mg PO QDL atorvastatin 20 mg Tablet 10 mg PO QAM warfarin 2.5 mg Tablet 2.5 mg PO QPM Rx Instructions: as direcred by anticoagulation clinic insulin aspart U-100 [Novolog PenFill U-100 Insulin] 100 unit/mL Cartridge 1 sliding scale dose SUBCUT USEASDIRECTD Rx Instructions: UNSURE IF PT TAKING THIS, UNABLE TO VERIFY metoprolol succinate 25 mg tablet extended release 24 hr 25 mg PO QDL insulin glargine [Lantus Solostar U-100 Insulin] 100 unit/mL (3 mL) insulin pen 8 unit SC HS Qty: 15 0RF fluticasone propionate 50 mcg/actuation [place],Suspension 2 spray NA DAILY Qty: 16 0RF guaifenesin [Mucinex] 600 mg Tablet Extended Release 12hr 600 mg PO Q12H PRN (Reason: Congestion) Referrals Referrals: Tamie Portillo PA-C [Primary Care Provider] - Discharge Problem: Altered mental status Qualifiers: Altered mental status type: unspecified Qualified Code(s): R41.82 - Altered mental status, unspecified Fall Qualifiers: Encounter type: initial encounter Qualified Code(s): W19.XXXA - Unspecified fall, initial encounter
[2023-08-22 01:21] LABS: Basophils # (auto) 0.04 K/uL (0.00-0.20); Basophils % (auto) 0.4 %; Eosinophils % (auto) 2.9 %; Hematocrit (blood only) 42.7 % (42.0-52.0); Hemoglobin 13.6 g/dl (14.0-18.0); Immature Granulocytes # (auto) 0.02 K/uL (0.01-0.20); Immature Granulocytes % (auto) 0.2 %; Lymphocytes # (auto) 1.67 K/uL (1.20-3.40); Lymphocytes % (auto) 16.3 %; Mean Corpuscular Hemoglobin 26.5 pg (25.0-34.0); Mean Corpuscular Hgb Conc 31.9 g/dL (32.0-36.0); Mean Corpuscular Volume 83.1 fL (80.0-100.0); Mean Platelet Volume 10.4 fL (9.4-12.4); Monocytes % (auto) 10.8 %; Neutrophils # (auto) 7.09 K/uL (1.40-6.50); Neutrophils % (auto) 69.4 %; Platelet Count 234 K/uL (130-400); RDW Coefficient of Variation 15.3 % (11.5-14.5); Red Blood Count 5.14 M/uL (4.70-6.10); White Blood Count 10.22 K/ul (4.8-10.8)
[2023-08-22 01:37] LABS: Albumin Globulin Ratio 1.5 (0.9-2); Albumin Level 3.7 gm/dl (3.4-5.0); BUN Creatinine Ratio 16.8 (10-20); Calcium 8.9 mg/dl (8.6-10.3); Creatinine Clr Calc Pharmacy 49.1 ml/min; Est GFR (African American) 67.4 ml/min; Est GFR (Non-African American) 58.1 ml/min; Globulin 2.4 gm/dl (2.5-4.0); Potassium 3.7 mmol/L (3.5-5.1); Total Protein 6.1 gm/dl (6.0-8.3)
[2023-08-22 01:44] LABS: Troponin I High Sensitivity 32.1 pg/ml (0-20)
[2023-08-22 02:00] LABS: Partial Thromboplastin Ratio 1.6; Partial Thromboplastin Time 44 Seconds (21-31); Prothrombin Time 30.9 Seconds (9.0-12.0)
[2023-08-22 02:08] LABS: Adenovirus PCR Not Detected (NotDetected); Bordetella parapertussis PCR Not Detected (NotDetected); Bordetella pertussis PCR Not Detected (NotDetected); Chlamydia pneumoniae PCR Not Detected (NotDetected); Coronavirus 229E PCR Not Detected (NotDetected); Coronavirus CoV-2 (COVID19)PCR Not Detected (NotDetected); Coronavirus HKU1 PCR Not Detected (NotDetected); Coronavirus NL63 PCR Not Detected (NotDetected); Coronavirus OC43PCR Not Detected (NotDetected); Human Metapneumovirus PCR Not Detected (NotDetected); Influenza A PCR Not Detected (NotDetected); Influenza B PCR Not Detected (NotDetected); Mycoplasma pneumoniae PCR Not Detected (NotDetected); Parainfluenza Virus 1 PCR Not Detected (NotDetected); Parainfluenza Virus 2 PCR Not Detected (NotDetected); Parainfluenza Virus 3 PCR Not Detected (NotDetected); Parainfluenza Virus 4 PCR Not Detected (NotDetected); Respiratory Syncytial VirusPCR Not Detected (NotDetected); Rhinovirus/Enterovirus PCR Not Detected (NotDetected)
--- NOTE | 2023-08-22 02:23 | CT Scan Report ---
Exam(s): CT HEAD Without Contrast EXAM: CT Head Without Intravenous Contrast CLINICAL HISTORY: Reason for exam: fall. TECHNIQUE: Axial computed tomography images of the head/brain without intravenous contrast. CTDI is 38.03 mGy and DLP is 624.41 mGy-cm. Automated exposure control was utilized for the study. A dose lowering technique was utilized adhering to the principles of ALARA. COMPARISON: CT July 06, 2023 FINDINGS: Brain: Extensive chronic, small vessel ischemic changes in the white matter. Old lacunar infarct in the left basal ganglia. No acute intracranial hemorrhage, abnormal mass-effect or edema. Ventricles: Unremarkable. No ventriculomegaly. Bones/joints: Unremarkable. No acute fracture. Soft tissues: Unremarkable. Sinuses: Extensive chronic opacification of the maxillary and ethmoid sinuses. Mastoid air cells: Unremarkable as visualized. No mastoid effusion. IMPRESSION: No acute findings in the head/brain. Electronically signed by: Timo Kay MD 08/22/23 02:22 AM
--- NOTE | 2023-08-22 02:26 | CT Scan Report ---
Exam(s): CT C SPINE EXAM: CT Cervical Spine Without Intravenous Contrast CLINICAL HISTORY: Reason for exam: fall. TECHNIQUE: Axial computed tomography images of the cervical spine without intravenous contrast. CTDI is 26.47 mGy and DLP is 500 mGy-cm. Automated exposure control was utilized for the study. A dose lowering technique was utilized adhering to the principles of ALARA. COMPARISON: No relevant prior studies available. FINDINGS: Vertebrae: Unremarkable. No acute fracture. Discs/spinal canal/neural foramina: Advanced multilevel degenerative disc disease. No spinal canal stenosis. Soft tissues: Unremarkable. IMPRESSION: No acute findings in the cervical spine. Electronically signed by: Timo Kay MD 08/22/23 02:25 AM
--- NOTE | 2023-08-22 04:39 | History & Physical Report ---
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 CT head is okay. Patient is very difficult to understand. He Lantus to 40 units tell his name. Ask if everything is okay and asking about h is imaging studies. States he fell. But could not elaborate. Denies any chest pain. Denies abdominal pain. States has mild headache. No nausea Difficult to understand him and difficult to get history from patient. Tried to call his daughter but could not reach her. Currently we do not know his exact baseline. But seems he lives alone.Per previous admission H&P incidental finding of multi ple small peritoneal/omental nodules measuring up to 1.2 cm highly suspicious for metastatic process and peritoneal implants but per records patient had low- grade GI tumor tumor in the 2019 in [facility] and at that time did not want any further intervention and daughter [facility] Confusion Patient was found on the ground by neighbors Seems lives alone Dont know his exact baseline Has expressive aphasia from previous stroke CT head is okay Labs okay Will follow UA Because of history of stroke will do MRI scan Gentle fluids N.p.o. until speech evaluation Telemetry History of CVA Expressive aphasia/dysarthria On statin and Coumadin History of A-fib On metoprolol and Coumadin Follow INR Mild elevation troponin Follow serial enzymes If any concerns will get echo and cardiac consult History of COPD Continue home inhalers Diabetes Cut back on Lantus to 4 units nightly as patient currently n.p.o. 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 CT head is okay. Patient is very difficult to understand. He can tell his name. Asking if everything is okay and asking about his imaging studies. States he fell. But could not elaborate. Denies any chest pain. Denies abdominal pain. States has mild headache. No nausea Difficult to understand him and difficult to get history from patient. Tried to call his daughter but could not reach her. Currently we do not know his exact baseline. But seems he lives alone.Per previous admission H&P incidental finding of multip le small peritoneal/omental nodules measuring up to 1.2 cm highly suspicious for metastatic process and peritoneal implants but per records patient had low-grade GI tumor tumor in the 2019 in [facility] and at that time did not want any further intervention and daughter wished to follow-up results with [place] Past medical's. As mentioned above and gout, BPH, history of stomach cancer in 2018. Hearing deficit. Past surgical history. EGD. Appendectomy. History of abdominal surgery and removal of stomach cancer mass. History of tooth extraction. Nasal polypectomy. Bilateral cataract extraction. History of posterior surgery. History of PEG tube placement. History of gastric restrictive surgery. Family history significant for diabetes. Social history. As per records no smoking. No alcohol abuse, no drug use. Allergies Allergy/AdvReac Type Severity Reaction Status Date / Time No Known Allergies Allergy Verified 08/22/23 01:44 Home Medications Medication Instructions Recorded Confirmed Type atorvastatin 20 mg tablet 10 mg PO QAM 11/14/19 08/22/23 History sennosides 8.6 mg tablet 17.2 mg PO QDL 10/11/20 08/22/23 History fluticasone 250 mcg-salmeterol 50 1 inh inhalation BID #90 puffs 11/28/22 08/22/23 Rx mcg/dose blistr powdr for inhalation (Wixela Inhub) insulin aspart U-100 100 unit/mL 1 sliding scale dose subcut 12/28/22 08/22/23 History subcutaneous cartridge (Novolog USEASDIRECTD PenFill U-100 Insulin aspart) warfarin 2.5 mg tablet 2.5 mg PO QPM 12/28/22 08/22/23 History metoprolol succinate 25 mg 25 mg PO QDL 04/27/23 08/22/23 History tablet,extended release 24 hr insulin glargine 100 unit/mL (3 8 unit (0.08 mL) SC HS #15 mL 04/30/23 08/22/23 Rx mL) subcutaneous pen (Lantus Solostar U-100 Insulin) fluticasone propionate 50 2 spray NA DAILY #16 grams 05/09/23 08/22/23 Rx mcg/actuation nasal spray,suspension guaifenesin 600 mg tablet, 600 mg PO Q12H PRN Congestion 08/22/23 08/22/23 History extended release 12 hr (Mucinex) Past Med/Surg History Medical History Paroxysmal atrial fibrillation Confusion Acute and chronic respiratory failure with hypoxia Acute exacerbation of chronic obstructive pulmonary disease Acute hypoxemic respiratory failure CVA (cerebral vascular accident) DVT prophylaxis Gout BPH (benign prostatic hyperplasia) Diabetes mellitus, type 2 History of stomach cancer Hearing deficit Hypertension Hyperlipidemia Transient ischemic attack (TIA) Stroke Atrial fibrillation Asthma COPD (chronic obstructive pulmonary disease) HTN (hypertension) History of multiple strokes First degree AV block Pneumonia Nasal polyposis Chronic pansinusitis Dysarthria Dysphagia as late effect of cerebrovascular accident (CVA) Surgical History History of esophagogastroduodenoscopy (EGD) History of appendectomy History of abdominal surgery History of tooth extraction History of nasal polypectomy History of bilateral cataract extraction History of prostate surgery Status post insertion of percutaneous endoscopic gastrostomy (PEG) tube History of gastric restrictive surgery Family History Brother Family history of diabetes mellitus Other No family history of adverse response to anesthesia No family history of bleeding disorder Social History Smoking Status: Unknown if ever smoked Second Hand Exposure: No; Do You Dip or Chew Tobacco: No; Hx Alcohol Use: No Hx Substance Use: No Preferred Language: Swedish Communication Ability: Impaired Communication Ability Comment: daughter needs to be with pt Chopper Operator Required: No Beliefs That Will Affect Care: None marital status: Current Living Situation: Alone Current Living Situation Comment: [place] current occupational status: retired Feels Safe at Home: Yes Assistive Devices: Cane, Walker and Other Review of Systems Review of Systems: Other dysarthria Physical Exam Physical Exam: General- alert and awake. Not in distress Head- atraumatic Eyes- PERRL. ENT- oropharynx clear Neck- supple, no JVD. Lungs- clear to auscultation no wheezing or crackles. Heart- regular rhythm; no murmur, no gallop,. Abdomen- normal bowel sounds, soft, nontender, no distension Extremities- no pretibial edema, no erythema seen Neuro- alert, oriented x 1 PERRL, no facial palsy; expressive aphasia; motor 1- 2/5 bilaterally; obeys simple commands. difficult to do complte exam as patient having difficulty understanding Skin- warm & dry Results & Data Results & Data Vital Signs (Past 12 Hours) Vital Signs Temp Pulse Pulse Resp BP BP Pulse Ox 08/22/23 02:38 101 H 19 138/99 94 08/22/23 01:24 97 08/22/23 01:00 112 H 23 119/90 96 08/22/23 00:51 114 H 08/22/23 00:45 36.8 C 113 H 24 122/87 96 O2 Del Method 08/22/23 02:38 Room Air 08/22/23 01:24 Room Air 08/22/23 01:00 Room Air 08/22/23 00:51 08/22/23 00:45 Room Air Diagnostic Findings Laboratory Results WBC 10.22 K/ul (4.8-10.8) 08/22/23 00:56 RBC 5.14 M/uL (4.70-6.10) 08/22/23 00:56 Hgb 13.6 g/dl (14.0-18.0) L 08/22/23 00:56 Hct 42.7 % (42.0-52.0) 08/22/23 00:56 MCV 83.1 fL (80.0-100.0) 08/22/23 00:56 MCH 26.5 pg (25.0-34.0) 08/22/23 00:56 MCHC 31.9 g/dL (32.0-36.0) L 08/22/23 00:56 RDW Std Deviation 46.0 fL (36.4-46.3) 08/22/23 00:56 RDW Coeff of Mainor 15.3 % (11.5-14.5) H 08/22/23 00:56 Plt Count 234 K/uL (130-400) 08/22/23 00:56 MPV 10.4 fL (9.4-12.4) 08/22/23 00:56 Immature Gran % (Auto) 0.2 % 08/22/23 00:56 Neut % (Auto) 69.4 % 08/22/23 00:56 Lymph % (Auto) 16.3 % 08/22/23 00:56 [place] % (Auto) 10.8 % 08/22/23 00:56 Eos % (Auto) 2.9 % 08/22/23 00:56 Baso % (Auto) 0.4 % 08/22/23 00:56 Neut # (Auto) 7.09 K/uL (1.40-6.50) H 08/22/23 00:56 Lymph # (Auto) 1.67 K/uL (1.20-3.40) 08/22/23 00:56 [place] # (Auto) 1.10 K/uL (0.11-0.59) H 08/22/23 00:56 Eos # (Auto) 0.30 K/uL (0.00-0.50) 08/22/23 00:56 Baso # (Auto) 0.04 K/uL (0.00-0.20) 08/22/23 00:56 Immature Gran # (Auto) 0.02 K/uL (0.01-0.20) 08/22/23 00:56 PT 30.9 Seconds (9.0-12.0) H 08/22/23 00:56 INR 3.0 (0.9-1.1) H 08/22/23 00:56 APTT 44 Seconds (21-31) H 08/22/23 00:56 PTT Ratio 1.6 08/22/23 00:56 Sodium 143 mmol/L (136-145) 08/22/23 00:56 Potassium 3.7 mmol/L (3.5-5.1) 08/22/23 00:56 Chloride 110 mmol/L (98-107) H 08/22/23 00:56 Carbon Dioxide 26 mmol/L (21-32) 08/22/23 00:56 Anion Gap 7 (3-11) 08/22/23 00:56 BUN 19 mg/dl (6-23) 08/22/23 00:56 Creatinine 1.13 mg/dl (0.6-1.4) 04 00:56 Est Cr Clr Drug Dosing 49.1 ml/min 08/22/23 00:56 Est GFR ( Amer) 67.4 ml/min 04 00:56 Est GFR (Non-Af Amer) 58.1 ml/min 04 00:56 BUN/Creatinine Ratio 16.8 (10-20) 08/22/23 00:56 Glucose 177 mg/dl (70-99(Fasting)) H 08/22/23 00:56 POC Glucose 195 mg/dl (70-99) H 08/22/23 01:04 Calcium 8.9 mg/dl (8.6-10.3) 08/22/23 00:56 Total Bilirubin 1.0 mg/dl (0.2-1.0) 08/22/23 00:56 AST 15 U/L (13-39) 08/22/23 00:56 ALT 17 U/L (7-52) 08/22/23 00:56 Alkaline Phosphatase 45 U/L (34-104) 08/22/23 00:56 Troponin I High Sens 39.0 pg/ml (0-20) H 04 03:10 Total Protein 6.1 gm/dl (6.0-8.3) 08/22/23 00:56 Albumin 3.7 gm/dl (3.4-5.0) 08/22/23 00:56 Globulin 2.4 gm/dl (2.5-4.0) L 08/22/23 00:56 Albumin/Globulin Ratio 1.5 (0.9-2) 08/22/23 00:56 Lipase 11 U/L (11-82) 04 00:56 Adenovirus (PCR) Not Detected (NotDetected) 08/22/23 00:57 B. pertussis DNA (PCR) Not Detected (NotDetected) 08/22/23 00:57 B.parapertussis DNA PCR Not Detected (NotDetected) 08/22/23 00:57 C. pneumoniae DNA (PCR) Not Detected (NotDetected) 08/22/23 00:57 Coronavirus OC43 (PCR) Not Detected (NotDetected) 08/22/23 00:57 Coronavirus HKU1 (PCR) Not Detected (NotDetected) 08/22/23 00:57 Coronavirus 229E (PCR) Not Detected (NotDetected) 08/22/23 00:57 SARS-CoV-2 (PCR) Not Detected (NotDetected) 08/22/23 00:57 Coronavirus NL63 (PCR) Not Detected (NotDetected) 08/22/23 00:57 Human Metapneumovir PCR Not Detected (NotDetected) 08/22/23 00:57 Influenza Type A (PCR) Not Detected (NotDetected) 08/22/23 00:57 Influenza Type B (PCR) Not Detected (NotDetected) 08/22/23 00:57 M. pneumoniae (PCR) Not Detected (NotDetected) 08/22/23 00:57 Parainfluenza 1 (PCR) Not Detected (NotDetected) 08/22/23 00:57 Parainfluenza 2 (PCR) Not Detected (NotDetected) 08/22/23 00:57 Parainfluenza 3 (PCR) Not Detected (NotDetected) 08/22/23 00:57 Parainfluenza 4 (PCR) Not Detected (NotDetected) 08/22/23 00:57 RSV (PCR) Not Detected (NotDetected) 08/22/23 00:57 Entero/Rhino (PCR) Not Detected (NotDetected) 08/22/23 00:[address] 08/22/23 00:53 Exam(s): CT C SPINE EXAM: CT Cervical Spine Without Intravenous Contrast CLINICAL HISTORY: Reason for exam: fall. TECHNIQUE: Axial computed tomography images of the cervical spine without intravenous contrast. CTDI is 26.47 mGy and DLP is 500 mGy-cm. Automated exposure control was utilized for the study. A dose lowering technique was utilized adhering to the principles of ALARA. COMPARISON: No relevant prior studies available. FINDINGS: Vertebrae: Unremarkable. No acute fracture. Discs/spinal canal/neural foramina: Advanced multilevel degenerative disc disease. No spinal canal stenosis. Soft tissues: Unremarkable. IMPRESSION: No acute findings in the cervical spine. Electronically signed by: Timo Kay MD 08/22/23 02:[address] 08/22/23 00:53 Exam(s): CT HEAD Without Contrast EXAM: CT Head Without Intravenous Contrast CLINICAL HISTORY: Reason for exam: fall. TECHNIQUE: Axial computed tomography images of the head/brain without intravenous contrast. CTDI is 38.03 mGy and DLP is 624.41 mGy-cm. Automated exposure control was utilized for the study. A dose lowering technique was utilized adhering to the principles of ALARA. COMPARISON: CT July 06, 2023 FINDINGS: Brain: Extensive chronic, small vessel ischemic changes in the white matter. Old lacunar infarct in the left basal ganglia. No acute intracranial hemorrhage, abnormal mass-effect or edema. Ventricles: Unremarkable. No ventriculomegaly. Bones/joints: Unremarkable. No acute fracture. Soft tissues: Unremarkable. Sinuses: Extensive chronic opacification of the maxillary and ethmoid sinuses. Mastoid air cells: Unremarkable as visualized. No mastoid effusion. IMPRESSION: No acute findings in the head/brain. Electronically signed by: Timo Kay MD 08/22/23 02:22 AM ECG Additional Comments: ECG. Accelerated junctional rhythm rate of 112. Nonspecific T wave abnormality . Code Status & VTE Plan VTE Prophylaxis Plan VTE Prophylaxis will be ordered: Yes
[2023-08-22] MEDS ORDERED: NITROGLYCERIN SL 0.4 MG/TAB TAB SL PRN (05:26)
[2023-08-22] MEDS ORDERED: guaiFENesin 600 MG TABCR PO PRN (05:26)
[2023-08-22] MEDS ORDERED: GLUCOSE 40% GEL 15 GM TUBE PO PRN (05:26)
[2023-08-22] MEDS ORDERED: GLUCAGON FOR INJ 1 MG VIAL SQ PRN (05:26)
[2023-08-22] MEDS ORDERED: PHARMACY GLYCEMIC MGMT CONSULT PRN (05:26)
[2023-08-22] MEDS ORDERED: CARBOHYDRATES FOR HYPOGLYCEMIA PO PRN (05:26)
[2023-08-22] MEDS ORDERED: DEXTROSE 50% 50 ML SYRINGE IV PRN (05:26)
[2023-08-22] MEDS ORDERED: GLUCOSE 10 TAB/TUBE PO PRN (05:26)
[2023-08-22] MEDS: SODIUM CHLORIDE 0.9% 1,000 ML IV SCH (06:29)
--- NOTE | 2023-08-22 07:28 | XRay Report ---
XR chest 1V portable CLINICAL HISTORY: Chest pain, nonspecific TECHNIQUE: Single frontal radiograph of the chest was obtained. Comparison: Comparison is made to chest radiograph 07/06/2023 FINDINGS: No lines and tubes are seen. Calcified aortic knob is seen. The lungs are clear. No evidence of pleur al effusion or pneumothorax. IMPRESSION: No acute chest disease. ACT 112: Negative or not required by law. Electronically signed by: Phan Contreras M.D. 08/22/2023 7:27 AM
[2023-08-22] MEDS: INSULIN ASPART PER UNIT CHARGE SC SCH ×2 (07:42→18:32)
[2023-08-22 08:35] LABS: INR 2.8 (0.9-1.1); Prothrombin Time 28.7 Seconds (9.0-12.0)
[2023-08-22 08:49] LABS: BUN Creatinine Ratio 18.8 (10-20); Calcium 8.7 mg/dl (8.6-10.3); Creatinine Clr Calc Pharmacy 54.9 ml/min; Est GFR (African American) 77.2 ml/min; Est GFR (Non-African American) 66.6 ml/min; Magnesium 1.8 mg/dl (1.7-2.4); Potassium 4.2 mmol/L (3.5-5.1)
[2023-08-22 08:53] LABS: Basophils # (auto) 0.05 K/uL (0.00-0.20); Basophils % (auto) 0.3 %; Eosinophils # (auto) 0.22 K/uL (0.00-0.50); Eosinophils % (auto) 1.4 %; Hematocrit (blood only) 39.7 % (42.0-52.0); Hemoglobin 12.5 g/dl (14.0-18.0); Immature Granulocytes # (auto) 0.05 K/uL (0.01-0.20); Immature Granulocytes % (auto) 0.3 %; Lymphocytes # (auto) 1.58 K/uL (1.20-3.40); Lymphocytes % (auto) 10.3 %; Mean Corpuscular Hemoglobin 26.7 pg (25.0-34.0); Mean Corpuscular Hgb Conc 31.5 g/dL (32.0-36.0); Mean Corpuscular Volume 84.6 fL (80.0-100.0); Mean Platelet Volume 10.7 fL (9.4-12.4); Monocytes # (auto) 1.51 K/uL (0.11-0.59); Monocytes % (auto) 9.9 %; Neutrophils # (auto) 11.86 K/uL (1.40-6.50); Neutrophils % (auto) 77.8 %; Platelet Count 237 K/uL (130-400); RDW Coefficient of Variation 15.5 % (11.5-14.5); Red Blood Count 4.69 M/uL (4.70-6.10); White Blood Count 15.27 K/ul (4.8-10.8)
[2023-08-22 09:05] LABS: Estimated Average Glucose 169 mg/dl; Hemoglobin A1C 7.5 % (4.5-5.6)
[2023-08-22] MEDS: GADOBUTROL 65ML VIAL IV ONE (09:15)
[2023-08-22] MEDS: FLUTICASONE PROPIONATE NA SPR 16 GM BTL SCH (09:35)
[2023-08-22] MEDS: ATORVASTATIN 10 MG TAB PO SCH (09:35)
[2023-08-22] MEDS: FLUTICASONE/VILANTEROL 100/25MCG 14 PUFFS/INHALER INH SCH (09:35)
--- NOTE | 2023-08-22 09:48 | Communication Note ---
Date of Service: August 22, 2023 Pt presenting after being found on the ground by neighbors. Brain MRI with no acute changes. UA has not yet been collected, re-ordered to be obtained via cath. AM EEG and carotid dopplers ordered for further evaluation. Consider neurology consult in the AM. For more information, please see History and Physical from the same date of service.
--- NOTE | 2023-08-22 09:58 | Magnetic Resonance Report ---
MR brain wo/w con CLINICAL HISTORY: hx of cva. confusion TECHNIQUE: Multiplanar and multisequence MR images of the brain were obtained prior to and following administration of gadolinium contrast. Comparison: Comparison is made to MR brain 12/28/[address] head 08/22/2023 FINDINGS: No abnormal restricted diffusion is identified. Foci of T2 and FLAIR hyperintensity are noted in the paraventricular areas consistent with chronic small vessel ischemic disease. Ex vacuo ventriculomegal y and sulcal enlargement is noted compatible with diffuse volume loss. Focal encephalomalacia in the left basal ganglia compatible with old infarct. No mass or abnormal enhancement is seen. There is no mass effect or midline shift. There is no evidence of acute intraparenchymal hemorrhage. No extra axi al fluid collections are seen. The corpus callosum, pituitary gland, and cerebellar tonsils appear gr ossly unremarkable. Flow voids of the major intracranial arterial vessels are identified. The imaged portions of the para nasal sinuses, mastoid air cells, and orbits are unremarkable. IMPRESSION: No acute abnormalities. ACT 112: Negative or not required by law. Electronically signed by: Phan Contreras M.D. 08/22/2023 9:55 AM
--- NOTE | 2023-08-22 11:32 | Pharmacy Report ---
Pharmacy Glycemic Short Note 2 - Date of Service August 22, 2023 - Glycemic Short BSG Results (Last 24 hours): 08/22/23 08/22/23 08/22/23 00:56 01:04 06:20 Glucose 177 H POC Glucose 195 H 196 H 08/22/23 07:52 Glucose 193 H POC Glucose OUTPATIENT ANTIDIABETIC REGIMEN: * Lantus 8 units Q HS * Novolog per sliding scale * A1c = 7.5% 08/22/23 ASSESSMENT: * Type 2 diabetic admitted for confusion, fall. * Mildly hyperglycemic since admission, however BSGs still acceptable given hospitalized goals * Current insulin orders are appropriate starting points: basal dose currently 50% reported outpt dosage due to NPO status; Novolog dose based upon weight and "moderate" stress level. Will continue current orders and follow BSG trend. PLAN FOR INPATIENT GLYCEMIC CONTROL: * Basal insulin * Lantus 4 units SQ Q HS * Bolus insulin * NovoLog per scale ACHS or Q6hrs while NPO * Goal Range: Low 110 mg/dL - High 140 mg/dL * Correction Factor: 30 mg/dL/unit * Nutritional / Prandial insulin per carb ratio of 1 unit per 10 grams CHO consumed
[2023-08-22] MEDS: SENNA 8.6 MG TAB PO SCH (12:48)
[2023-08-22] MEDS: METOPROLOL SUCC 25MG EXT REL TAB PO SCH (12:48)
[2023-08-22] MEDS: WARFARIN SOD 2.5 MG TAB PO SCH (17:07)
[2023-08-22] MEDS: LANTUS PER UNIT CHARGE SQ SCH (21:14)
[2023-08-23 02:26] LABS: Appearance Urine Clear (Clear); Bacteria Urine Automated Negative (Negative); Bilirubin Urine Negative (Negative); Blood Urine Negative (Negative); Color Urine Yellow; Glucose Urine UA Negative (Negative); Ketones Urine Trace (Negative); Leukocyte Esterase Urine Negative (Negative); Nitrite Urine Negative (Negative); Protein Urine 1+ (Negative); RBC Urine Automated 0-4 /hpf (0-4); Specific Gravity Urine 1.027 (1.000-1.030); Urobilinogen Urine Negative (Negative)
[2023-08-23 07:17] LABS: Basophils # (auto) 0.03 K/uL (0.00-0.20); Basophils % (auto) 0.3 %; Eosinophils # (auto) 0.35 K/uL (0.00-0.50); Hematocrit (blood only) 34.5 % (42.0-52.0); Immature Granulocytes # (auto) 0.02 K/uL (0.01-0.20); Immature Granulocytes % (auto) 0.2 %; Lymphocytes # (auto) 1.78 K/uL (1.20-3.40); Lymphocytes % (auto) 20.1 %; Mean Corpuscular Hemoglobin 26.8 pg (25.0-34.0); Mean Corpuscular Hgb Conc 31.9 g/dL (32.0-36.0); Mean Corpuscular Volume 83.9 fL (80.0-100.0); Mean Platelet Volume 10.9 fL (9.4-12.4); Monocytes # (auto) 1.21 K/uL (0.11-0.59); Monocytes % (auto) 13.7 %; Neutrophils # (auto) 5.47 K/uL (1.40-6.50); Neutrophils % (auto) 61.7 %; Platelet Count 206 K/uL (130-400); RDW Coefficient of Variation 15.4 % (11.5-14.5); RDW Standard Deviation 46.8 fL (36.4-46.3); Red Blood Count 4.11 M/uL (4.70-6.10); White Blood Count 8.86 K/ul (4.8-10.8)
[2023-08-23 07:42] LABS: BUN Creatinine Ratio 21.7 (10-20); Creatinine Clr Calc Pharmacy 66.8 ml/min; Est GFR (African American) 91.7 ml/min; Est GFR (Non-African American) 79.1 ml/min; Magnesium 1.8 mg/dl (1.7-2.4); Phosphorus 2.3 mg/dl (2.5-4.9); Potassium 3.5 mmol/L (3.5-5.1)
[2023-08-23 08:03] LABS: INR 2.7 (0.9-1.1); Prothrombin Time 27.4 Seconds (9.0-12.0)
--- NOTE | 2023-08-23 08:07 | Ultrasound Report ---
ULTRASOUND OF THE CAROTID ARTERIES CLINICAL HISTORY: Syncope. COMPARISON STUDY: No priors. TECHNIQUE: Real-time, grayscale, and color Doppler sonography of the carotid arteries is performed. I mages are reviewed in the transverse and longitudinal planes. FINDINGS: The carotid arteries are patent bilaterally and demonstrate antegrade flow. There is [id number] atherosclerotic plaque seen in the carotid bulbs bilaterally, left greater than right. Normal dopple r arterial waveforms are seen throughout. Velocity measurements are listed below. Common carotid peak systolic velocity (cm/sec): RIGHT: 66 LEFT: 63 ICA proximal peak systolic velocity (cm/sec): RIGHT: 48 LEFT: 89 ICA mid peak systolic velocity (cm/sec): RIGHT: 65 LEFT: 61 ICA distal peak systolic velocity (cm/sec): RIGHT: 68 LEFT: 85 ICA/CC peak systolic ratio: RIGHT: 1.0 LEFT: 1.4 Antegrade flow was shown in the vertebral arteries. The external carotid arteries are patent. IMPRESSION: 1. There is no sonographic evidence of hemodynamically significant stenosis in the right or left torres tid arterial system. 2. Antegrade flow is shown in the vertebral arteries. ACT 112: Negative or not required by law. Electronically signed by: Mir Cantu M.D. 08/23/2023 8:05 AM
[2023-08-23] MEDS ORDERED: POTASSIUM PHOS 3 MMOL/1 ML INFUSION IV STA (10:16)
--- NOTE | 2023-08-23 11:18 | Electroencephalogram ---
EEG Procedure Note Date of Service August 23, 2023 Start / End Times Start Time: 08:52 End Time: 09:[address] Mónica Tillman History A 87 year old male with syncope and collapse. EEG performed for evaluation of epileptiform activity. Home Medication List Medication Instructions Recorded Confirmed Type atorvastatin 20 mg tablet 10 mg PO QAM 11/14/19 08/22/23 History sennosides 8.6 mg tablet 17.2 mg PO QDL 10/11/20 08/22/23 History fluticasone 250 mcg-salmeterol 50 1 inh inhalation BID #90 puffs 11/28/22 08/22/23 Rx mcg/dose blistr powdr for inhalation (Wixela Inhub) insulin aspart U-100 100 unit/mL 1 sliding scale dose subcut 12/28/22 08/22/23 History subcutaneous cartridge (Novolog USEASDIRECTD PenFill U-100 Insulin aspart) warfarin 2.5 mg tablet 2.5 mg PO QPM 12/28/22 08/22/23 History metoprolol succinate 25 mg 25 mg PO QDL 04/27/23 08/22/23 History tablet,extended release 24 hr insulin glargine 100 unit/mL (3 8 unit (0.08 mL) SC HS #15 mL 04/30/23 08/22/23 Rx mL) subcutaneous pen (Lantus Solostar U-100 Insulin) fluticasone propionate 50 2 spray NA DAILY #16 grams 05/09/23 08/22/23 Rx mcg/actuation nasal spray,suspension guaifenesin 600 mg tablet, 600 mg PO Q12H PRN Congestion 08/22/23 08/22/23 His tory extended release 12 hr (Mucinex) Inpatient Medication List Atorvastatin Calcium (Atorvastatin 10 Mg Tab) 10 mg PO QAM BRODY Stop: 09/21/23 08:59 Last Admin: 08/23/23 09:27 Dose: 10 mg Documented By: Admin: 08/22/23 09:35 Dose: 10 mg Documented By: JO-ANN Fluticasone Propionate (Fluticasone Propionate Na Spr 16 Gm Btl) 2 sprays NA DAILY BRODY Stop: 09/21/23 08:59 Last Admin: 08/22/23 09:35 Dose: 2 sprays Documented By: JO-ANN Fluticasone/Vilanterol (Fluticasone/Vilanterol 100/25mcg 14 Puffs/Inhaler) 1 puffs INH DAILY [facility] Stop: 09/21/23 08:59 Last Admin: 08/22/23 09:35 Dose: 1 puffs Documented By: JO-ANN Sodium Chloride (Nss) 1,000 mls @ 80 mls/hr IV .[id number] [facility] Stop: 09/21/23 05:25 Last Admin: 08/23/23 10:23 Dose: 80 mls/hr Documented By: Infusion: 08/23/23 06:37 Dose: Infused Documented By: Admin: 08/22/23 18:07 Dose: 80 mls/hr Documented By: Infusion: 08/22/23 18:07 Dose: Infused Documented By: Admin: 08/22/23 06:29 Dose: 80 mls/hr Documented By: PRADIP Insulin Aspart (Insulin Aspart Per Unit Charge) 0 units SC ACHS [facility] Stop: 09/21/23 16:29 Last Admin: 08/23/23 09:27 Dose: 4 units Documented By: CEM Co-signed By: DENIZ Admin: 08/22/23 21:12 Dose: 1 units Documented By: ADINA Co-signed By: CONSUELO Admin: 08/22/23 18:32 Dose: 4 units Documented By: DEVONTE Co-signed By: CONSUELO Insulin Glargine (Lantus Per Unit Charge) 4 units SQ HS [facility] Stop: 09/21/23 20:59 Last Admin: 08/22/23 21:14 Dose: 4 units Documented By: ADINA Co-signed By: CONSUELO Metoprolol Succinate (Metoprolol Succ 25mg Ext Rel Tab) 25 mg PO QDL [facility] Stop: 09/21/23 11:29 Last Admin: 08/22/23 12:48 Dose: 25 mg Documented By: JOSE MANUEL Sennosides (Senna 8.6 Mg Tab) 17.2 mg PO QDL [facility] Stop: 09/21/23 11:29 Last Admin: 08/22/23 12:48 Dose: 17.2 mg Documented By: JOSE MANUEL Warfarin Sodium (Warfarin Sod 2.5 Mg Tab) 2.5 mg PO DAILY@1600 [facility] Stop: 09/21/23 15:59 Last Admin: 08/22/23 17:07 Dose: 2.5 mg Documented By: DEVONTE Discontinued Medications Gadobutrol (Gadobutrol 65ml Vial) 8 ml IV ONCE ONE Stop: 08/22/23 09:35 Last Admin: 08/22/23 09:15 Dose: 8 ml Documented By: ANNAMARIA Insulin Aspart (Insulin Aspart Per Unit Charge) 0 units SC Q6 BRODY Stop: 09/21/23 05:59 Last Admin: 08/22/23 13:23 Dose: 4 units Documented By: JOSE MANUEL Co-signed By: DEVONTE Admin: 08/22/23 07:42 Dose: 2 units Documented By: JO-ANN Co-signed By: MARVIN Description This is a 21 electrode EEG with a single channel dedicated to limited EKG. The electrodes were placed in accordance with the International 10-20 system. REPORT: At the onset of the EEG the patient is asleep. The background is symmetric with a normal anterior to posterior gradient. The posterior dominant rhythm is 7-8 Hz, Drowsiness is characterized by increased theta/delta activity with reduced blink rate. No stage II sleep transients are seen. Photic does not induce any abnormalities. Interpretation IMPRESSION: This is an abnormal awake and drowsy routine EEG due to mild generalized background slowing suggestive of a mild non speciifc encephalopathy. No epileptiform activity is seen.
[2023-08-23] MEDS: POTASSIUM PHOSPHATE 15 MMOL in SODIUM CHLORIDE 0.9% 250 ML IV ONE (11:23)
[2023-08-23] MEDS: AMOXICILLIN/CLAVULANATE 875 MG TAB PO SCH (12:24)
--- NOTE | 2023-08-23 13:47 | Hospitalist Progress Note ---
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 CT head is okay. Patient is very difficult to understand. He Lantus to 40 units tell his name. Ask if everything is okay and asking about h is imaging studies. States he fell. But could not elaborate. Denies any chest pain. Denies abdominal pain. States has mild headache. No nausea Difficult to understand him and difficult to get history from patient. Tried to call his daughter but could not reach her. Currently we do not know his exact baseline. But seems he lives alone.Per previous admission H&P incidental finding of multi ple small peritoneal/omental nodules measuring up to 1.2 cm highly suspicious for metastatic process and peritoneal implants but per records patient had low- grade GI tumor tumor in the 2019 in [facility] and at that time did not want any further intervention and daughter wished to follow-up results with [place] Acute metabolic/toxic Encephalopathy Patient was found on the ground by neighbors Has expressive aphasia from previous stroke CT head unremarkable MRI unremarkable Carotid doppler unremarkable EEG no noted seizures Gentle fluids Speech evaluation Telemetry PT/OT History of CVA Expressive aphasia/dysarthria On statin and Coumadin History of A-fib On metoprolol and Coumadin Follow INR Mild elevation troponin Follow serial enzymes If any concerns will get echo and cardiac consult History of COPD Continue home inhalers Diabetes Cut back on Lantus to 4 units nightly as patient currently n.p.o. Sliding scale Will monitor Hypertension On metoprolol Hyperlipidemia On statin DVT prophylaxis On Coumadin Follow INR Disposition Telemetry CODE STATUS full code until further discussions with daughter Admission and Anticipated Discharge Date Admission Date: August 22, 2023 Subjective Pt was seen in the room alert and oriented. Giving updates about studies he had done today. Daughter called, did not berry picker Review of Systems Review of Systems: All systems reviewed & are unremarkable except as noted in Subjective Physical Exam Physical Exam: General: Alert, oriented. Skin: No noted rashes or bruises Psych: Appropriate mood and affect Neuro: weakness and speech difficult to understand HEENT: NC/AT Chest: Nontender to palpation. CV: RRR Resp: Breath sounds clear bilaterally, no increased effort of breathing. Abdomen: Soft, nontender, nondistended. No guarding. No organomegaly appreciated. Extremities: No edema in lower extremities bilaterally. Results & Data Results & Data Vital Signs (Past 12 Hours) Vital Signs Temp Pulse Pulse Resp BP BP Pulse Ox 08/23/23 11:31 36.6 C 78 16 121/72 97 08/23/23 06:26 36.5 C 111 H 18 144/93 H 96 08/23/23 03:38 126/67 08/23/23 03:38 69 17 08/23/23 03:00 66 17 94 08/23/23 01:59 71 20 152/74 H 96 O2 Del Method 08/23/23 11:31 Room Air 08/23/23 06:26 Room Air 08/23/23 03:38 08/23/23 03:38 08/23/23 03:00 08/23/23 01:59 Room Air
[2023-08-23] MEDS ORDERED: POLYETHYLENE (MIRALAX) 17 GM PACK PO PRN (14:52)
[2023-08-23] MEDS: DOCUSATE SODIUM 100 MG CAP PO SCH (21:26)
[2023-08-24 05:29] LABS: Basophils # (auto) 0.04 K/uL (0.00-0.20); Basophils % (auto) 0.5 %; Eosinophils % (auto) 4.8 %; Hematocrit (blood only) 29.2 % (42.0-52.0); Hemoglobin 9.5 g/dl (14.0-18.0); Immature Granulocytes # (auto) 0.03 K/uL (0.01-0.20); Immature Granulocytes % (auto) 0.4 %; Lymphocytes # (auto) 1.49 K/uL (1.20-3.40); Lymphocytes % (auto) 17.8 %; Mean Corpuscular Hemoglobin 27.2 pg (25.0-34.0); Mean Corpuscular Hgb Conc 32.5 g/dL (32.0-36.0); Mean Corpuscular Volume 83.7 fL (80.0-100.0); Mean Platelet Volume 10.7 fL (9.4-12.4); Monocytes # (auto) 1.09 K/uL (0.11-0.59); Neutrophils # (auto) 5.33 K/uL (1.40-6.50); Neutrophils % (auto) 63.5 %; Platelet Count 194 K/uL (130-400); RDW Coefficient of Variation 15.6 % (11.5-14.5); RDW Standard Deviation 47.8 fL (36.4-46.3); Red Blood Count 3.49 M/uL (4.70-6.10); White Blood Count 8.38 K/ul (4.8-10.8)
[2023-08-24 05:39] LABS: INR 2.4 (0.9-1.1); Prothrombin Time 24.9 Seconds (9.0-12.0)
[2023-08-24 06:09] LABS: BUN Creatinine Ratio 22.7 (10-20); Calcium 7.5 mg/dl (8.6-10.3); Creatinine Clr Calc Pharmacy 73.9 ml/min; Est GFR (African American) 95.6 ml/min; Est GFR (Non-African American) 82.5 ml/min; Magnesium 1.7 mg/dl (1.7-2.4); Phosphorus 2.4 mg/dl (2.5-4.9); Potassium 3.6 mmol/L (3.5-5.1)
--- NOTE | 2023-08-24 07:12 | Pharmacy Report ---
Pharmacy Glycemic Short Note 2 - Date of Service August 24, 2023 - Glycemic Short BSG Results (Last 24 hours): 08/23/23 08/23/23 08/23/23 06:48 08:12 11:34 Glucose 106 H POC Glucose 117 H 145 H 08/23/23 08/23/23 08/24/23 16:04 20:36 04:50 Glucose 99 POC Glucose 83 241 H OUTPATIENT ANTIDIABETIC REGIMEN: * Lantus 8 units Q HS * Novolog per sliding scale * A1c = 7.5% 08/22/23 ASSESSMENT: 08/23 * BSGs at goal over the last 2 days with the exception of last evening's hyperglycemic event at bedtime (likely due to inadequate prandial insulin with evening meal) * 15 units of insulin given over last 24 hrs while tolerating a diet * Fasting BSG on chemistry this AM at goal with current basal dose - will continue * Post-prandial BSGs mostly at goal with current Novolog CR/CF - will continue 08/21 * Type 2 diabetic admitted for confusion, fall. * Mildly hyperglycemic since admission, however BSGs still acceptable given hospitalized goals * Current insulin orders are appropriate starting points: basal dose currently 50% reported outpt dosage due to NPO status; Novolog dose based upon weight and "moderate" stress level. Will continue current orders and follow BSG trend. PLAN FOR INPATIENT GLYCEMIC CONTROL: * Basal insulin * Lantus 4 units SQ Q HS * Bolus insulin * NovoLog per scale ACHS or Q6hrs while NPO * Goal Range: Low 110 mg/dL - High 140 mg/dL * Correction Factor: 30 mg/dL/unit * Nutritional / Prandial insulin per carb ratio of 1 unit per 10 grams CHO consumed
[2023-08-24] MEDS ORDERED: POTASSIUM PHOS 3 MMOL/1 ML INFUSION IV STA (09:57)
[2023-08-24] MEDS: POTASSIUM PHOSPHATE 15 MMOL in SODIUM CHLORIDE 0.9% 250 ML IV STA (11:01)
[2023-08-24] MEDS: POT PHOSPHATE MONOBASIC W/ SOD TAB PO SCH (12:18)
--- NOTE | 2023-08-24 16:43 | Hospitalist Progress Note ---
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 CT head is okay. Patient is very difficult to understand. He Lantus to 40 units tell his name. Ask if everything is okay and asking about h is imaging studies. States he fell. But could not elaborate. Denies any chest pain. Denies abdominal pain. States has mild headache. No nausea Difficult to understand him and difficult to get history from patient. Tried to call his daughter but could not reach her. Currently we do not know his exact baseline. But seems he lives alone.Per previous admission H&P incidental finding of multi ple small peritoneal/omental nodules measuring up to 1.2 cm highly suspicious for metastatic process and peritoneal implants but per records patient had low- grade GI tumor tumor in the [address] [facility] and at that time did not want any further intervention and daughter wished to follow-up results with [place]. Acute metabolic/toxic Encephalopathy Patient was found on the ground by neighbors Has expressive aphasia from previous stroke CT head unremarkable MRI unremarkable Carotid doppler unremarkable EEG no noted seizures Gentle fluids Speech evaluation Telemetry PT/OT- awaiting placement History of CVA Expressive aphasia/dysarthria On statin and Coumadin History of A-fib On metoprolol and Coumadin Follow INR Mild elevation troponin Follow serial enzymes If any concerns will get echo and cardiac consult History of COPD Continue home inhalers Diabetes Cut back on Lantus to 4 units nightly as patient currently n.p.o. Sliding scale Will monitor Hypertension On metoprolol Hyperlipidemia On statin DVT prophylaxis On Coumadin Follow INR CODE STATUS full code Admission and Anticipated Discharge Date Admission Date: August 22, 2023 Subjective Pt sitting at bedside. Denies acute concerns. Review of Systems Review of Systems: All systems reviewed & are unremarkable except as noted in Subjective Physical Exam Physical Exam: General: Alert, oriented. Skin: No noted rashes or bruises Psych: Appropriate mood and affect Neuro: weakness and speech difficult to understand HEENT: NC/AT Chest: Nontender to palpation. CV: RRR Resp: Breath sounds clear bilaterally, no increased effort of breathing. Abdomen: Soft, nontender, nondistended. No guarding. No organomegaly appreciated. Extremities: No edema in lower extremities bilaterally. Results & Data Results & Data Vital Signs (Past 12 Hours) Vital Signs Temp Pulse Pulse Resp BP Pulse Ox O2 Del Method 08/24/23 15:48 36.8 C 68 18 143/82 H 98 Room Air 08/24/23 11:10 36.5 C 64 18 146/69 H 97 Room Air 08/24/23 09:50 64 08/24/23 07:49 36.7 C 73 18 164/77 H 98 Room Air 08/24/23 04:59 136/66
--- NOTE | 2023-08-24 19:30 | Electrocardiogram Report ---
Test Reason : Blood Pressure : / mmHG Vent. Rate : 112 BPM Atrial Rate : 000 BPM P-R Int : 000 ms QRS Dur : 078 ms QT Int : 326 ms P-R-T Axes : 000 063 037 degrees QTc Int : 444 ms Suspect sinus tachycardia with 1st degree A-V block Abnormal ECG When compared with ECG of 06-JUL-2023 08:44, HR has increased Nonspecific T wave abnormality now evident in Inferior leads Confirmed by Yonatan Vargas ([id number]) on 08/24/2023 7:30:06 PM Referred By: REFERRED SELF Confirmed By:Yonatan Vargas
[2023-08-25] MEDS: dilTIAZem HCl 5 MG/ML 5 ML VIAL IV STA (03:29)
[2023-08-25] MEDS: POTASSIUM CHLORIDE CRTAB 20 MEQ TABCR PO STA (03:29)
[2023-08-25] MEDS: MAGNESIUM SULFATE / D5W 1 GM/100 ML BAG IV SCH (03:29)
[2023-08-25] MEDS: SODIUM CHLOR 0.45% + 20MEQ KCL 20 MEQ/1,000 ML BAG IV ONE (05:16)
[2023-08-25 07:47] LABS: Basophils # (auto) 0.04 K/uL (0.00-0.20); Basophils % (auto) 0.5 %; Eosinophils # (auto) 0.41 K/uL (0.00-0.50); Eosinophils % (auto) 5.2 %; Hematocrit (blood only) 30.3 % (42.0-52.0); Hemoglobin 9.6 g/dl (14.0-18.0); Immature Granulocytes # (auto) 0.03 K/uL (0.01-0.20); Immature Granulocytes % (auto) 0.4 %; Lymphocytes # (auto) 1.27 K/uL (1.20-3.40); Lymphocytes % (auto) 16.1 %; Mean Corpuscular Hemoglobin 26.6 pg (25.0-34.0); Mean Corpuscular Hgb Conc 31.7 g/dL (32.0-36.0); Mean Corpuscular Volume 83.9 fL (80.0-100.0); Mean Platelet Volume 10.9 fL (9.4-12.4); Monocytes # (auto) 0.92 K/uL (0.11-0.59); Monocytes % (auto) 11.6 %; Neutrophils # (auto) 5.23 K/uL (1.40-6.50); Neutrophils % (auto) 66.2 %; Platelet Count 225 K/uL (130-400); RDW Coefficient of Variation 15.3 % (11.5-14.5); RDW Standard Deviation 46.6 fL (36.4-46.3); Red Blood Count 3.61 M/uL (4.70-6.10)
[2023-08-25 08:06] LABS: BUN Creatinine Ratio 16.2 (10-20); Calcium 7.8 mg/dl (8.6-10.3); Creatinine Clr Calc Pharmacy 81.5 ml/min; Est GFR (African American) 99.5 ml/min; Est GFR (Non-African American) 85.9 ml/min; Magnesium 2.4 mg/dl (1.7-2.4); Phosphorus 2.8 mg/dl (2.5-4.9); Potassium 3.7 mmol/L (3.5-5.1)
[2023-08-25 08:16] LABS: INR 1.8 (0.9-1.1); Prothrombin Time 19.3 Seconds (9.0-12.0)
--- NOTE | 2023-08-25 09:32 | Hospitalist Progress Note ---
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 CT head is okay. Patient is very difficult to understand. He Lantus to 40 units tell his name. Ask if everything is okay and asking about h is imaging studies. States he fell. But could not elaborate. Denies any chest pain. Denies abdominal pain. States has mild headache. No nausea Difficult to understand him and difficult to get history from patient. Tried to call his daughter but could not reach her. Currently we do not know his exact baseline. But seems he lives alone.Per previous admission H&P incidental finding of multi ple small peritoneal/omental nodules measuring up to 1.2 cm highly suspicious for metastatic process and peritoneal implants but per records patient had low- grade GI tumor tumor in the 2019 in [facility] and at that time did not want any further intervention and daughter wished to follow-up results with [place]. Acute metabolic/toxic Encephalopathy Patient was found on the ground by neighbors Has expressive aphasia from previous stroke CT head unremarkable MRI unremarkable Carotid doppler unremarkable EEG no noted seizures Gentle fluids Speech evaluation Telemetry PT/OT- awaiting placement History of CVA Expressive aphasia/dysarthria On statin and Coumadin History of A-fib On metoprolol and Coumadin Follow INR Subtherapeutic INR INR below goal of 2-3 on 04/06 Extra dose of wrafarin 0.5mg given Continue to monitor with AM labs Mild elevation troponin Follow serial enzymes If any concerns will get echo and cardiac consult History of COPD Continue home inhalers Diabetes Cut back on Lantus to 4 units nightly as patient currently n.p.o. Sliding scale Will monitor Hypertension On metoprolol Hyperlipidemia On statin DVT prophylaxis On Coumadin Follow INR CODE STATUS full code Admission and Anticipated Discharge Date Admission Date: August 22, 2023 Subjective pt was seen laying in bed. Denied acute concerns. Currently awaiting placement. Review of Systems Review of Systems: All systems reviewed & are unremarkable except as noted in Subjective Physical Exam Physical Exam: General: Alert, oriented. Skin: No noted rashes or bruises Psych: Appropriate mood and affect Neuro: weakness and speech difficult to understand HEENT: NC/AT Chest: Nontender to palpation. CV: RRR Resp: Breath sounds clear bilaterally, no increased effort of breathing. Abdomen: Soft, nontender, nondistended. No guarding. No organomegaly appreciated. Extremities: No edema in lower extremities bilaterally. Results & Data Results & Data Vital Signs (Past 12 Hours) Vital Signs Temp Pulse Pulse Resp BP Pulse Ox O2 Del Method 08/25/23 09:03 Room Air 08/25/23 07:41 36.6 C 80 18 149/79 H 98 Room Air 08/25/23 03:32 152/72 H 08/25/23 02:43 36.7 C 116 H 20 135/92 95 Room Air 08/24/23 22:47 36.7 C 67 22 184/83 H 97 Room Air 08/24/23 22:00 63
--- NOTE | 2023-08-25 13:34 | Pharmacy Report ---
Pharmacy Glycemic Short Note 2 - Date of Service August 25, 2023 - Glycemic Short BSG Results (Last 24 hours): 08/24/23 08/24/23 08/25/23 16:26 19:55 07:09 Glucose 135 H POC Glucose 96 189 H 144 H 08/25/23 10:54 Glucose POC Glucose 99 OUTPATIENT ANTIDIABETIC REGIMEN: * Lantus 8 units SC HS * Novolog per sliding scale * HbA1c = 7.5% (08/22/23) ASSESSMENT: 08/24: * Marvin received 14 units of insulin yesterday, 4 basal + 10 bolus. BSGs were: 833-368-56-189 mg/dL. * Fasting BSG was 144 mg/dL this AM. Will increase basal to 6 units tonight. * Lunchtime BSG trended down to 99 mg/dL today. Will loosen both CF/CR starting at dinner. 08/23: * BSGs at goal over the last 2 days with the exception of last evening's hyperglycemic event at bedtime (likely due to inadequate prandial insulin with evening meal) * 15 units of insulin given over last 24 hrs while tolerating a diet * Fasting BSG on chemistry this AM at goal with current basal dose - will continue * Post-prandial BSGs mostly at goal with current Novolog CR/CF - will continue 08/21: * Type 2 diabetic admitted for confusion, fall. * Mildly hyperglycemic since admission, however BSGs still acceptable given hospitalized goals * Current insulin orders are appropriate starting points: basal dose currently 50% reported outpt dosage due to NPO status; Novolog dose based upon weight and "moderate" stress level. Will continue current orders and follow BSG trend. PLAN FOR INPATIENT GLYCEMIC CONTROL: * Basal insulin * Lantus 6 units SC HS * Bolus insulin * NovoLog per scale ACHS or Q6hrs while NPO * Goal Range: Low 110 mg/dL - High 140 mg/dL * Correction Factor: 35 mg/dL/unit * Nutritional / Prandial insulin per carb ratio of 1 unit per 12 grams CHO consumed
[2023-08-25] MEDS: WARFARIN SOD 0.5 MG TAB PO ONE (17:45)
[2023-08-25] MEDS: LANTUS PER UNIT CHARGE SQ SCH (20:12)
[2023-08-26 06:02] LABS: Hematocrit (blood only) 31.1 % (42.0-52.0); Mean Corpuscular Hemoglobin 27.4 pg (25.0-34.0); Mean Corpuscular Hgb Conc 32.2 g/dL (32.0-36.0); Mean Corpuscular Volume 85.2 fL (80.0-100.0); Mean Platelet Volume 10.5 fL (9.4-12.4); Platelet Count 235 K/uL (130-400); RDW Coefficient of Variation 15.3 % (11.5-14.5); RDW Standard Deviation 47.3 fL (36.4-46.3); Red Blood Count 3.65 M/uL (4.70-6.10); White Blood Count 7.03 K/ul (4.8-10.8)
[2023-08-26 06:14] LABS: BUN Creatinine Ratio 15.3 (10-20); Calcium 7.7 mg/dl (8.6-10.3); Est GFR (African American) 97.2 ml/min; Est GFR (Non-African American) 83.9 ml/min; Phosphorus 3.4 mg/dl (2.5-4.9); Potassium 3.7 mmol/L (3.5-5.1)
[2023-08-26 06:24] LABS: INR 1.7 (0.9-1.1); Prothrombin Time 17.7 Seconds (9.0-12.0)
--- NOTE | 2023-08-26 09:11 | Pharmacy Report ---
Pharmacy Glycemic Short Note 2 - Date of Service August 26, 2023 - Glycemic Short BSG Results (Last 24 hours): 08/25/23 08/25/23 08/25/23 10:54 16:12 20:03 Glucose POC Glucose 99 144 H 205 H 08/26/23 08/26/23 05:20 07:01 Glucose 85 POC Glucose 92 OUTPATIENT ANTIDIABETIC REGIMEN: * Lantus 8 units SC HS * Novolog per sliding scale * HbA1c = 7.5% (08/22/23) ASSESSMENT: 08/25: * Received 24 units of insulin yesterday, 6 basal + 18 bolus. BSGs were: 022-35-780-205 mg/dL. * Fasting BSG was 92 mg/dL this AM. Will back off basal dose slightly. * CF and CR both tightened today to help control postprandials. 08/24: * Marvin received 14 units of insulin yesterday, 4 basal + 10 bolus. BSGs were: 089-959-59-189 mg/dL. * Fasting BSG was 144 mg/dL this AM. Will increase basal to 6 units tonight. * Lunchtime BSG trended down to 99 mg/dL today. Will loosen both CF/CR starting at dinner. 08/23: * BSGs at goal over the last 2 days with the exception of last evening's hyperglycemic event at bedtime (likely due to inadequate prandial insulin with evening meal) * 15 units of insulin given over last 24 hrs while tolerating a diet * Fasting BSG on chemistry this AM at goal with current basal dose - will continue * Post-prandial BSGs mostly at goal with current Novolog CR/CF - will continue 08/21: * Type 2 diabetic admitted for confusion, fall. * Mildly hyperglycemic since admission, however BSGs still acceptable given hospitalized goals * Current insulin orders are appropriate starting points: basal dose currently 50% reported outpt dosage due to NPO status; Novolog dose based upon weight and "moderate" stress level. Will continue current orders and follow BSG trend. PLAN FOR INPATIENT GLYCEMIC CONTROL: * Basal insulin * Lantus 5 units SC HS * Bolus insulin * NovoLog per scale ACHS or Q6hrs while NPO * Goal Range: Low 110 mg/dL - High 140 mg/dL * Correction Factor: 30 mg/dL/unit * Nutritional / Prandial insulin per carb ratio of 1 unit per 10 grams CHO consumed
[2023-08-26] MEDS: ENOXAPARIN 80 MG/0.8 ML SYR SC SCH (09:53)
--- NOTE | 2023-08-26 12:55 | Hospitalist Progress Note ---
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 CT head is okay. Patient is very difficult to understand. He Lantus to 40 units tell his name. Ask if everything is okay and asking about h is imaging studies. States he fell. But could not elaborate. Denies any chest pain. Denies abdominal pain. States has mild headache. No nausea Difficult to understand him and difficult to get history from patient. Tried to call his daughter but could not reach her. Currently we do not know his exact baseline. But seems he lives alone.Per previous admission H&P incidental finding of multi ple small peritoneal/omental nodules measuring up to 1.2 cm highly suspicious for metastatic process and peritoneal implants but per records patient had low- grade GI tumor tumor in the 2019 in [facility] and at that time did not want any further intervention and daughter wished to follow-up results with [place]. Acute metabolic/toxic Encephalopathy Patient was found on the ground by neighbors Has expressive aphasia from previous stroke CT head unremarkable MRI unremarkable Carotid doppler unremarkable EEG no noted seizures Gentle fluids Speech evaluation Telemetry PT/OT- awaiting placement History of CVA Expressive aphasia/dysarthria On statin History of A-fib On metoprolol and Coumadin Follow INR on 08/25, noted run of likely atrial fibrillation Cardiology consulted for further recs Subtherapeutic INR INR below goal of 2-3 on 08/24 Extra dose of warfarin 0.5mg given on 08/24 Still not at goal Started on Lovenox bridge Mild elevation troponin Follow serial enzymes If any concerns will get echo and cardiac consult History of COPD Continue home inhalers Diabetes Cut back on Lantus to 4 units nightly as patient currently n.p.o. Sliding scale Will monitor Hypertension On metoprolol Hyperlipidemia On statin DVT prophylaxis: On Coumadin, follow INR CODE STATUS full code Admission and Anticipated Discharge Date Admission Date: August 22, 2023 Subjective pt was seen laying in bed. Denied acute concerns. Currently awaiting placement. had an acute episode of an arrhythmia, likely a fib on telemetry today. Review of Systems Review of Systems: All systems reviewed & are unremarkable except as noted in Subjective Physical Exam Physical Exam: General: Alert, oriented. Skin: No noted rashes or bruises Psych: Appropriate mood and affect Neuro: weakness and speech difficult to understand HEENT: NC/AT Chest: Nontender to palpation. CV: RRR Resp: Breath sounds clear bilaterally, no increased effort of breathing. Abdomen: Soft, nontender, nondistended. No guarding. No organomegaly appreciated. Extremities: No edema in lower extremities bilaterally. Results & Data Results & Data Vital Signs (Past 12 Hours) Vital Signs Temp Pulse Pulse Resp BP Pulse Ox O2 Del Method 08/26/23 11:26 36.7 C 110 H 18 134/81 95 Room Air 08/26/23 10:29 64 08/26/23 08:00 Room Air 08/26/23 07:25 36.6 C 68 18 167/79 H 97 Room Air 08/26/23 03:27 36.5 C 69 16 163/81 H 98 Room Air
--- NOTE | 2023-08-26 13:35 | Cardiology Consultation ---
Date of Consultation August 26, 2023 Assessment & Plan Plan Case discussed with Dr. Story Please see attestation for additional recommendations. LUPILLO Montenegro Department of Cardiology, [facility] This chart was completed in part utilizing Speech Voice Recognition Software. Grammatical errors, random word insertions, pronoun errors, and incomplete sentences are an occasional consequence of this system due to software limitations, ambient noise, and hardware issues. Any formal questions or concerns about the content, text, or information contained within the body of this dictation should be directly addressed to the provider for clarification. History of Present Illness Requesting Physician: [facility] hospitalist Attending Physician: Mónica Tillman MD Allergies Allergy/AdvReac Type Severity Reaction Status Date / Time No Known Allergies Allergy Verified 08/22/23 01:44 Home Medications Medication Instructions Recorded Confirmed Type atorvastatin 20 mg tablet 10 mg PO QAM 11/14/19 08/22/23 History sennosides 8.6 mg tablet 17.2 mg PO QDL 10/11/20 08/22/23 History fluticasone 250 mcg-salmeterol 50 1 inh inhalation BID #90 puffs 11/28/22 08/22/23 Rx mcg/dose blistr powdr for inhalation (Wixela Inhub) insulin aspart U-100 100 unit/mL 1 sliding scale dose subcut 12/28/22 08/22/23 History subcutaneous cartridge (Novolog USEASDIRECTD PenFill U-100 Insulin aspart) warfarin 2.5 mg tablet 2.5 mg PO QPM 12/28/22 08/22/23 History metoprolol succinate 25 mg 25 mg PO QDL 04/27/23 08/22/23 History tablet,extended release 24 hr insulin glargine 100 unit/mL (3 8 unit (0.08 mL) SC HS #15 mL 04/30/23 08/22/23 Rx mL) subcutaneous pen (Lantus Solostar U-100 Insulin) fluticasone propionate 50 2 spray NA DAILY #16 grams 05/09/23 08/22/23 Rx mcg/actuation nasal spray,suspension guaifenesin 600 mg tablet, 600 mg PO Q12H PRN Congestion 08/22/23 08/22/23 History extended release 12 hr (Mucinex) Patient History Medical History Paroxysmal atrial fibrillation Confusion Acute and chronic respiratory failure with hypoxia Acute exacerbation of chronic obstructive pulmonary disease Acute hypoxemic respiratory failure CVA (cerebral vascular accident) DVT prophylaxis Gout BPH (benign prostatic hyperplasia) Diabetes mellitus, type 2 History of stomach cancer Hearing deficit Hypertension Hyperlipidemia Transient ischemic attack (TIA) Stroke Atrial fibrillation Asthma COPD (chronic obstructive pulmonary disease) HTN (hypertension) History of multiple strokes First degree AV block Pneumonia Nasal polyposis Chronic pansinusitis Dysarthria Dysphagia as late effect of cerebrovascular accident (CVA) Surgical History History of esophagogastroduodenoscopy (EGD) History of appendectomy History of abdominal surgery History of tooth extraction History of nasal polypectomy History of bilateral cataract extraction History of prostate surgery Status post insertion of percutaneous endoscopic gastrostomy (PEG) tube History of gastric restrictive surgery Family History Brother Family history of diabetes mellitus Other No family history of adverse response to anesthesia No family history of bleeding disorder Social History Smoking Status: Never smoker Second Hand Exposure: No; Do You Dip or Chew Tobacco: No; Hx Alcohol Use: No Hx Substance Use: No Preferred Language: Icelandic Communication Ability: Impaired Communication Ability Comment: daughter needs to be with pt Movie Shot Cameraman Required: No Beliefs That Will Affect Care: None marital status: Current Living Situation: Alone Current Living Situation Comment: [place] current occupational status: retired Other Information That Helps Us Care for You: No Feels Safe at Home: Yes Assistive Devices: Cane, Walker and Other Results & Data Vital Signs (Past 12 Hours) Vital Signs Temp Pulse Pulse Resp BP Pulse Ox O2 Del Method 08/26/23 11:26 36.7 C 110 H 18 134/81 95 Room Air 08/26/23 10:29 64 08/26/23 08:00 Room Air 08/26/23 07:25 36.6 C 68 18 167/79 H 97 Room Air 08/26/23 03:27 36.5 C 69 16 163/81 H 98 Room Air
[2023-08-26] MEDS: LANTUS PER UNIT CHARGE SQ SCH (20:24)
[2023-08-27] MEDS: METOPROLOL TARTRATE 1 MG/ML VIAL IV STA ×2 (00:18→18:08)
[2023-08-27] MEDS: POTASSIUM CHLORIDE CRTAB 20 MEQ TABCR PO STA (00:50)
[2023-08-27] MEDS: METOPROLOL TARTRATE 25 MG TAB PO STA (00:50)
[2023-08-27 07:00] LABS: Hemoglobin 11.4 g/dl (14.0-18.0); Mean Corpuscular Hgb Conc 31.7 g/dL (32.0-36.0); Mean Corpuscular Volume 85.1 fL (80.0-100.0); Mean Platelet Volume 10.2 fL (9.4-12.4); Platelet Count 278 K/uL (130-400); RDW Coefficient of Variation 15.7 % (11.5-14.5); RDW Standard Deviation 47.7 fL (36.4-46.3); Red Blood Count 4.23 M/uL (4.70-6.10)
[2023-08-27 07:26] LABS: BUN Creatinine Ratio 18.7 (10-20); Calcium 8.4 mg/dl (8.6-10.3); Creatinine Clr Calc Pharmacy 73.9 ml/min; Est GFR (African American) 95.6 ml/min; Est GFR (Non-African American) 82.5 ml/min; Phosphorus 3.3 mg/dl (2.5-4.9); Potassium 4.1 mmol/L (3.5-5.1)
[2023-08-27 07:30] LABS: INR 1.6 (0.9-1.1); Prothrombin Time 17.2 Seconds (9.0-12.0)
[2023-08-27] MEDS: METOPROLOL SUCC 25MG EXT REL TAB PO SCH (09:40)
--- NOTE | 2023-08-27 09:49 | Pharmacy Report ---
Pharmacy Glycemic Short Note 2 - Date of Service August 27, 2023 - Glycemic Short BSG Results (Last 24 hours): 08/26/23 08/26/23 08/26/23 11:22 16:11 20:08 Glucose POC Glucose 148 H 104 H 101 H 08/27/23 08/27/23 06:30 08:11 Glucose 79 POC Glucose 84 OUTPATIENT ANTIDIABETIC REGIMEN: * Lantus 8 units SC HS * Novolog per sliding scale * HbA1c = 7.5% (08/22/23) ASSESSMENT: 08/26: * 18 units SQ given over last 24 hrs while tolerating diet * Fasting BSG 79-84 this AM with 5 units basal on board - will continue to titrate basal dose down * Post-prandial BSGs well controlled with current CR/CF -will continue 08/25: * Received 24 units of insulin yesterday, 6 basal + 18 bolus. BSGs were: 779-95-343-205 mg/dL. * Fasting BSG was 92 mg/dL this AM. Will back off basal dose slightly. * CF and CR both tightened today to help control postprandials. 08/24: * Marvin received 14 units of insulin yesterday, 4 basal + 10 bolus. BSGs were: [id number] mg/dL. * Fasting BSG was 144 mg/dL this AM. Will increase basal to 6 units tonight. * Lunchtime BSG trended down to 99 mg/dL today. Will loosen both CF/CR starting at dinner. PLAN FOR INPATIENT GLYCEMIC CONTROL: * Basal insulin * Lantus 4 units SC HS * Bolus insulin * NovoLog per scale ACHS or Q6hrs while NPO * Goal Range: Low 110 mg/dL - High 140 mg/dL * Correction Factor: 30 mg/dL/unit * Nutritional / Prandial insulin per carb ratio of 1 unit per 10 grams CHO consumed
--- NOTE | 2023-08-27 14:55 | Hospitalist Progress Note ---
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 CT head is okay. Patient is very difficult to understand. He Lantus to 40 units tell his name. Ask if everything is okay and asking about h is imaging studies. States he fell. But could not elaborate. Denies any chest pain. Denies abdominal pain. States has mild headache. No nausea Difficult to understand him and difficult to get history from patient. Tried to call his daughter but could not reach her. Currently we do not know his exact baseline. But seems he lives alone.Per previous admission H&P incidental finding of multi ple small peritoneal/omental nodules measuring up to 1.2 cm highly suspicious for metastatic process and peritoneal implants but per records patient had low- grade GI tumor tumor in the 2019 in [facility] and at that time did not want any further intervention and daughter wished to follow-up results with [place]. Acute metabolic/toxic Encephalopathy Patient was found on the ground by neighbors Has expressive aphasia from previous stroke CT head unremarkable MRI unremarkable Carotid doppler unremarkable EEG no noted seizures Gentle fluids Speech evaluation Telemetry PT/OT- awaiting placement Sinusitis Noted on MRI brain Appears chronic possible component of presenting symptoms? Augmentin BID x 5 days, consider extended course History of CVA Expressive aphasia/dysarthria On statin History of A-fib On metoprolol and Coumadin Follow INR on 08/25, noted run of likely atrial fibrillation, pt in a flutter on 08/26 Cardiology consulted for further recs Subtherapeutic INR INR below goal of 2-3 on 08/24 Extra dose of warfarin 0.5mg given on 08/24 Still not at goal Started on Lovenox bridge Mild elevation troponin Follow serial enzymes If any concerns will get echo and cardiac consult History of COPD Continue home inhalers Diabetes Cut back on Lantus to 4 units nightly as patient currently n.p.o. Sliding scale Will monitor Hypertension On metoprolol Hyperlipidemia On statin DVT prophylaxis: On Coumadin, follow INR, lovenox bridge CODE STATUS full code Admission and Anticipated Discharge Date Admission Date: August 22, 2023 Subjective pt was seen laying in bed. Denied acute concerns. Currently awaiting placement. in a flutter today Review of Systems Review of Systems: All systems reviewed & are unremarkable except as noted in Subjective Physical Exam Physical Exam: General: Alert, oriented. Skin: No noted rashes or bruises Psych: Appropriate mood and affect Neuro: weakness and speech difficult to understand HEENT: NC/AT Chest: Nontender to palpation. CV: RRR Resp: Breath sounds clear bilaterally, no increased effort of breathing. Abdomen: Soft, nontender, nondistended. No guarding. No organomegaly appreciated. Extremities: No edema in lower extremities bilaterally. Results & Data Results & Data Vital Signs (Past 12 Hours) Vital Signs Temp Pulse Pulse Resp BP Pulse Ox O2 Del Method 08/27/23 11:23 36.5 C 73 18 166/75 H 98 Room Air 08/27/23 07:38 60 08/27/23 07:15 36.7 C 64 18 175/80 H 97 Room Air 08/27/23 03:02 36.3 C L 61 18 163/83 H 96 Room Air
--- NOTE | 2023-08-27 17:48 | Cardiology Consultation ---
Date of Consultation August 27, 2023 Assessment & Plan (1) Paroxysmal atrial fibrillation: (2) Aortic stenosis: (3) Benign essential hypertension: Plan ASSESSMENT/PLAN: 1. Paroxysmal atrial fibrillation/flutter: A few events noted while on telemetry here. Seems to be asymptomatic and heart rate overall not unreasonably fast for prolonged periods of time. Metoprolol succinate has already been increased by primary hospitalist to twice daily dosing. Agree with minor adjustment. Continue anticoagulation for stroke risk reduction. Chronically seems to be on warfarin. Could consider replacing with Eliquis but will leave up to primary care/cardiology providers in the outpatient setting. If he should develop significant symptoms with recurrent episodes, could consider antiarrhythmic therapy. Was in sinus rhythm at the time of today's consultation. 2. Aortic stenosis: Described as mild within the past year. Surveillance every 3 to 5 years or sooner for signs/symptoms of more significant stenosis. 3. Hypertension: Blood pressure has mostly been elevated. Beta-nan increased today. Can make further adjustments as necessary but will defer to primary hospitalist service. Plan of care communicated with primary hospitalist, Dr. Tillman. 4. Disposition: Please call with any other questions or concerns. Follow-up with Dr. Tan, his primary basketball coach in the outpatient setting. Patient care communicated with primary hospitalist, Dr. Tillman. Thank you for allowing me to participate in the care of your patient. Please call for any other questions or concerns. Sincerely, Lenin Rutledge M.D. History of Present Illness Reason for Consultation: Atrial fibrillation/flutter Requesting Physician: Mónica Tillman MD Attending Physician: Mónica Tillman MD History of Present Illness Mr. Adams is a pleasant 87-year-old gentleman with a history significant for paroxysmal atrial fibrillation, stroke with residual right-sided weakness and dysarthria, type 2 diabetes, hypertension, dyslipidemia, and COPD. His primary basketball coach is Dr. Tan. He was hospitalized on 08/22/2023 with confusion according to records. When reviewing telemetry, on 08/25/2023 he developed atrial fibrillation/flutter at 1:55 AM and converting back to sinus rhythm at 3:24 AM, spontaneously. A-fib developed again on 08/26/2023, only to spontaneously convert to sinus rhythm at 11:42 AM the same day and then back into atrial fibrillation/flutter at 2338 before spontaneously converting to sinus rhythm at 1:07 AM. When discussing this with him, he seems to be asymptomatic. It is known that he has paroxysmal atrial fibrillation when reviewing his outpatient cardiology note. He is being managed with beta-nan for rate control strategy. He denies chest pain, orthopnea, syncope, near syncope, palpitations, or edema. He admits that he fell last week and bruised his right hip. He has dyspnea on exertion for several months but no shortness of breath currently. Review of systems: As above. Review of systems otherwise negative/unremarkable. Family history: Noncontributory. Social history: Denies smoking, alcohol, or drug abuse. Lives alone. Able to perform his daily activities. Reports that he has 1 daughter which she referred to multiple times as a sister. He was unaccompanied. Allergies Allergy/AdvReac Type Severity Reaction Status Date / Time No Known Allergies Allergy Verified 08/22/23 01:44 Home Medications Medication Instructions Recorded Confirmed Type atorvastatin 20 mg tablet 10 mg PO QAM 11/14/19 08/22/23 History sennosides 8.6 mg tablet 17.2 mg PO QDL 10/11/20 08/22/23 History fluticasone 250 mcg-salmeterol 50 1 inh inhalation BID #90 puffs 11/28/22 08/22/23 Rx mcg/dose blistr powdr for inhalation (Wixela Inhub) insulin aspart U-100 100 unit/mL 1 sliding scale dose subcut 12/28/22 08/22/23 History subcutaneous cartridge (Novolog USEASDIRECTD PenFill U-100 Insulin aspart) warfarin 2.5 mg tablet 2.5 mg PO QPM 12/28/22 08/22/23 History metoprolol succinate 25 mg 25 mg PO QDL 04/27/23 08/22/23 History tablet,extended release 24 hr insulin glargine 100 unit/mL (3 8 unit (0.08 mL) SC HS #15 mL 04/30/23 08/22/23 Rx mL) subcutaneous pen (Lantus Solostar U-100 Insulin) fluticasone propionate 50 2 spray NA DAILY #16 grams 05/09/23 08/22/23 Rx mcg/actuation nasal spray,suspension guaifenesin 600 mg tablet, 600 mg PO Q12H PRN Congestion 08/22/23 08/22/23 History extended release 12 hr (Mucinex) Patient History Medical History (Updated 08/27/23 @ 17:41 by Darrel Rutledge MD) Aortic stenosis Paroxysmal atrial fibrillation Confusion Acute and chronic respiratory failure with hypoxia Acute exacerbation of chronic obstructive pulmonary disease Acute hypoxemic respiratory failure CVA (cerebral vascular accident) DVT prophylaxis Gout BPH (benign prostatic hyperplasia) Diabetes mellitus, type 2 History of stomach cancer 2017--sx Hearing deficit Hypertension Hyperlipidemia Transient ischemic attack (TIA) 07/2018--no lasting deficits from that mini stroke Stroke 01/20/2019--difficulty swallowing/speech slurred/lost ability to use right hand--follows with Dr. Jerri Hayden @ [facility] [place] [facility] Atrial fibrillation on xarelto Asthma inhaler/nebulizer prn COPD (chronic obstructive pulmonary disease) HTN (hypertension) History of multiple strokes First degree AV block Pneumonia Nasal polyposis difficultly breathing through nose Chronic pansinusitis Dysarthria Dysphagia as late effect of cerebrovascular accident (CVA) has improved Surgical History History of esophagogastroduodenoscopy (EGD) History of appendectomy History of abdominal surgery removal of stomach cancer mass History of tooth extraction most teeth removed History of nasal polypectomy History of bilateral cataract extraction History of prostate surgery Status post insertion of percutaneous endoscopic gastrostomy (PEG) tube History of gastric restrictive surgery Family History Brother Family history of diabetes mellitus Other No family history of adverse response to anesthesia No family history of bleeding disorder Social History Smoking Status: Never smoker Second Hand Exposure: No; Do You Dip or Chew Tobacco: No; Hx Alcohol Use: No Hx Substance Use: No Preferred Language: Romanian Communication Ability: Impaired Communication Ability Comment: daughter needs to be with pt Surgical Lead Required: No Beliefs That Will Affect Care: None marital status: Current Living Situation: Alone Current Living Situation Comment: [place] current occupational status: retired Other Information That Helps Us Care for You: No Feels Safe at Home: Yes Assistive Devices: Cane, Walker and Other Physical Exam Physical Exam: Gen.: No acute distress. Alert and oriented x 3. Slightly slurred speech. HEENT: Anicteric sclera. Neck: No JVD. No bruits. Normal carotid upstrokes bilaterally. Cardiac: No ventricular heave. Regular. Normal S1-S2. No murmurs, rubs, or gallops. Pulmonary: Clear to auscultation bilaterally without wheezes, rales, or rhonchi. Abdomen: Soft, nontender, nondistended, with normoactive bowel sounds. No bruits noted. Extremities: 2+ radial pulses bilaterally. 2+ posterior tibialis pulses bilaterally. No edema or cyanosis. Results & Data Vital Signs (Past 12 Hours) Vital Signs Temp Pulse Pulse Resp BP Pulse Ox O2 Del Method 08/27/23 15:02 36.6 C 72 18 139/68 96 Room Air 08/27/23 15:00 72 08/27/23 11:23 36.5 C 73 18 166/75 H 98 Room Air 08/27/23 09:40 Room Air 08/27/23 07:38 60 08/27/23 07:15 36.7 C 64 18 175/80 H 97 Room Air Laboratory Results Laboratory Results - last 24 hr 08/26/23 08/27/23 08/27/23 20:08 06:30 08:11 WBC 9.80 RBC 4.23 L Hgb 11.4 L Hct 36.0 L MCV 85.1 MCH 27.0 MCHC 31.7 L RDW Std Deviation 47.7 H RDW Coeff of Mainor 15.7 H Plt Count 278 MPV 10.2 PT 17.2 H INR 1.6 H Sodium 144 Potassium 4.1 Chloride 109 H Carbon Dioxide 31 Anion Gap 4 BUN 14 Creatinine 0.75 Est Cr Clr Drug Dosing 73.9 Est GFR ( Amer) 95.6 Est GFR (Non-Af Amer) 82.5 BUN/Creatinine Ratio 18.7 Glucose 79 POC Glucose 101 H 84 Calcium 8.4 L Phosphorus 3.3 Magnesium 2.0 08/27/23 08/27/23 12:05 17:07 WBC RBC Hgb Hct MCV MCH MCHC RDW Std Deviation RDW Coeff of Mainor Plt Count MPV PT INR Sodium Potassium Chloride Carbon Dioxide Anion Gap BUN Creatinine Est Cr Clr Drug Dosing Est GFR ( Amer) Est GFR (Non-Af Amer) BUN/Creatinine Ratio Glucose POC Glucose 118 H 131 H Calcium Phosphorus Magnesium Diagnostic Findings Labs from 08/27/2023 demonstrated mild anemia, normal platelets, normal potassium, stable renal function, normal magnesium. ECG personally reviewed from 08/22/2023: Possible sinus tachycardia with first- degree AV block. Telemetry personally reviewed at: Findings as noted in HPI. Likely paroxysmal atrial fibrillation rather than flutter. Echo 12/29/2022: Normal LV systolic function. Mild aortic stenosis. History and physical report reviewed. Brain MRI 08/22/2023: No acute abnormalities per radiology. Abdomen/pelvis CT 06/18/2023: Stable appearance of multiple small peritoneal, omental and mesenteric nodules suspicious for carcinomatosis with lesions measuring up to 1.2 cm. Medications Administered Current Inpatient Medications Atorvastatin Calcium (Atorvastatin 10 Mg Tab) 10 mg PO QAM BRODY Stop: 09/21/23 08:59 Last Admin: 08/27/23 09:40 Dose: 10 mg Dextrose (Dextrose 50% 50 Ml Syringe) 25 - 50 ml IV UD PRN; Protocol PRN Reason: Hypoglycemia Protocol Stop: 09/21/23 05:25 Docusate Sodium (Docusate Sodium 100 Mg Cap) 100 mg PO BID BRODY Stop: 09/22/23 20:59 Last Admin: 08/27/23 09:38 Dose: 100 mg Enoxaparin Sodium (Enoxaparin 80 Mg/0.8 Ml Syr) 80 mg SC Q12H BRODY Stop: 09/25/23 09:44 Last Admin: 08/27/23 09:40 Dose: 80 mg Fluticasone Propionate (Fluticasone Propionate Na Spr 16 Gm Btl) 2 sprays NA DAILY BRODY Stop: 09/21/23 08:59 Last Admin: 08/27/23 09:37 Dose: 2 sprays Fluticasone/Vilanterol (Fluticasone/Vilanterol 100/25mcg 14 Puffs/Inhaler) 1 puffs INH DAILY BRODY Stop: 09/21/23 08:59 Last Admin: 08/27/23 09:37 Dose: 1 puffs Glucagon (Glucagon For Inj 1 Mg Vial) 1 mg SQ UD PRN; Protocol PRN Reason: Hypoglycemia Protocol Stop: 09/21/23 05:25 Glucose (Glucose 10 Tab/Tube) 4 - 8 tab PO UD PRN; Protocol PRN Reason: Hypoglycemia Treatment Stop: 09/21/23 05:25 Glucose (Glucose 40% Gel 15 Gm Tube) 15 - 30 gm PO UD PRN; Protocol PRN Reason: Hypoglycemia Protocol Stop: 09/21/23 05:25 Guaifenesin (Guaifenesin 600 Mg Tabcr) 600 mg PO Q12H PRN PRN Reason: Congestion Stop: 09/21/23 05:25 Insulin Aspart (Insulin Aspart Per Unit Charge) 0 units SC [facility]; Protocol Stop: 09/21/23 16:29 Last Admin: 08/27/23 13:06 Dose: 6 units Insulin Glargine (Lantus Per Unit Charge) 4 units SQ HS [facility] Stop: 09/26/23 20:59 Metoprolol Succinate (Metoprolol Succ 25mg Ext Rel Tab) 25 mg PO BID [facility] Stop: 09/26/23 08:59 Last Admin: 08/27/23 09:40 Dose: 25 mg Miscellaneous (Carbohydrates For Hypoglycemia ) 15 - 30 gm PO UD PRN PRN Reason: Hypoglycemia Protocol Stop: 09/21/23 05:25 Miscellaneous Information (Pharmacy Glycemic Mgmt Consult) 1 each N/A UD PRN PRN Reason: Consult Stop: 09/21/23 05:25 Nitroglycerin (Nitroglycerin Sl 0.4 Mg/Tab Tab) 0.4 mg SL Q5M PRN PRN Reason: Chest Pain Stop: 09/21/23 05:25 Polyethylene Glycol (Polyethylene (Miralax) 17 Gm Pack) 17 gm PO DAILY PRN PRN Reason: Constipation Stop: 09/22/23 14:51 Potassium Phosphate (Pot Phosphate Monobasic W/ Sod Tab) 2 tab PO QID [facility] Stop: 09/23/23 12:59 Last Admin: 08/27/23 17:02 Dose: Not Given Sennosides (Senna 8.6 Mg Tab) 17.2 mg PO QDL [facility] Stop: 09/21/23 11:29 Last Admin: 08/27/23 13:06 Dose: 17.2 mg Warfarin Sodium (Warfarin Sod 2.5 Mg Tab) 2.5 mg PO DAILY@1600 [facility] Stop: 09/21/23 15:59 Last Admin: 08/27/23 16:49 Dose: 2.5 mg PG Care Time/CCT Total # of Minutes Spent Total Time Spent with Patient: Total time spent is greater than 50% in coordination of care (as documented) at patient's floor/unit and/or counseling patient: Coding Level of Care Code 51931 INT INP/OBS CARE 3/75MIN Diagnoses Paroxysmal atrial fibrillation I48.0 Aortic stenosis I35.0 Benign essential hypertension I10
[2023-08-27] MEDS: ACETAMINOPHEN 500 MG TAB PO PRN (18:44)
[2023-08-27] MEDS: LANTUS PER UNIT CHARGE SQ SCH (21:21)
[2023-08-28 06:54] LABS: Hematocrit (blood only) 32.8 % (42.0-52.0); Hemoglobin 10.2 g/dl (14.0-18.0); Mean Corpuscular Hemoglobin 26.6 pg (25.0-34.0); Mean Corpuscular Hgb Conc 31.1 g/dL (32.0-36.0); Mean Corpuscular Volume 85.6 fL (80.0-100.0); Mean Platelet Volume 10.3 fL (9.4-12.4); Platelet Count 271 K/uL (130-400); RDW Coefficient of Variation 15.8 % (11.5-14.5); RDW Standard Deviation 48.1 fL (36.4-46.3); Red Blood Count 3.83 M/uL (4.70-6.10); White Blood Count 6.71 K/ul (4.8-10.8)
[2023-08-28 07:10] LABS: BUN Creatinine Ratio 22.1 (10-20); Creatinine Clr Calc Pharmacy 71.9 ml/min; Est GFR (African American) 94.6 ml/min; Est GFR (Non-African American) 81.6 ml/min; Magnesium 1.9 mg/dl (1.7-2.4); Phosphorus 3.5 mg/dl (2.5-4.9); Potassium 3.7 mmol/L (3.5-5.1)
[2023-08-28 07:11] LABS: INR 1.8 (0.9-1.1); Prothrombin Time 18.7 Seconds (9.0-12.0)
[2023-08-28] MEDS: METOPROLOL SUCC 25MG EXT REL TAB PO ONE (12:15)
--- NOTE | 2023-08-28 13:18 | Hospitalist Progress Note ---
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 CT head is okay. Patient is very difficult to understand. He Lantus to 40 units tell his name. Ask if everything is okay and asking about h is imaging studies. States he fell. But could not elaborate. Denies any chest pain. Denies abdominal pain. States has mild headache. No nausea Difficult to understand him and difficult to get history from patient. Tried to call his daughter but could not reach her. Currently we do not know his exact baseline. But seems he lives alone.Per previous admission H&P incidental finding of multi ple small peritoneal/omental nodules measuring up to 1.2 cm highly suspicious for metastatic process and peritoneal implants but per records patient had low- grade GI tumor tumor in the [address] [facility] and at that time did not want any further intervention and daughter wished to follow-up results with [place]. Acute metabolic/toxic Encephalopathy Patient was found on the ground by neighbors Has expressive aphasia from previous stroke CT head unremarkable MRI unremarkable Carotid doppler unremarkable EEG no noted seizures Gentle fluids Speech evaluation Telemetry PT/OT- awaiting placement Atrial Flutter Atrial Fibrillation On metoprolol and Coumadin Follow INR on 08/25, noted run of likely atrial fibrillation, pt in a flutter on 08/26 Cardiology consulted for further recs -advising increase BB -metoprolol succinate dose titrated up, now increased to 50mg BID -INR subtherapeutic, on Lovenox bridge for anticoagulation Continue to monitor on telemetry Subtherapeutic INR INR below goal of 2-3 on 08/24 Extra dose of warfarin 0.5mg given on 08/24 Still not at goal Started on Lovenox bridge Consider further additional doses of warfarin to get to goal Sinusitis Noted on MRI brain Appears chronic possible component of presenting symptoms? Augmentin BID x 5 days, completed course History of CVA Expressive aphasia/dysarthria On statin Mild elevation troponin Follow serial enzymes If any concerns will get echo and cardiac consult History of COPD Continue home inhalers Diabetes Cut back on Lantus to 4 units nightly as patient currently n.p.o. Sliding scale Will monitor Hypertension On metoprolol Hyperlipidemia On statin DVT prophylaxis: On Coumadin, follow INR, lovenox bridge CODE STATUS full code Admission and Anticipated Discharge Date Admission Date: August 22, 2023 Subjective pt was seen laying in bed. Denied acute concerns. Currently awaiting placement. Lots of questions today about placement. In a flutter again today. Review of Systems Review of Systems: All systems reviewed & are unremarkable except as noted in Subjective Physical Exam Physical Exam: General: Alert, oriented. Skin: No noted rashes or bruises Psych: Appropriate mood and affect Neuro: weakness and speech difficult to understand HEENT: NC/AT Chest: Nontender to palpation. CV: RRR Resp: Breath sounds clear bilaterally, no increased effort of breathing. Abdomen: Soft, nontender, nondistended. No guarding. No organomegaly appreciated. Extremities: No edema in lower extremities bilaterally. Results & Data Results & Data Vital Signs (Past 12 Hours) Vital Signs Temp Pulse Pulse Resp BP Pulse Ox O2 Del Method 08/28/23 12:10 36.5 C 68 16 149/63 H 96 Room Air 08/28/23 08:13 36.4 C L 88 16 152/83 H 97 Room Air 08/28/23 07:31 56 L 08/28/23 04:00 36.5 C 59 L 18 152/61 H 97 Room Air
[2023-08-28] MEDS: METOPROLOL SUCC 50MG EXT REL TAB PO SCH (19:58)
[2023-08-29 06:58] LABS: Hematocrit (blood only) 35.9 % (42.0-52.0); Hemoglobin 11.4 g/dl (14.0-18.0); Mean Corpuscular Hemoglobin 27.3 pg (25.0-34.0); Mean Corpuscular Hgb Conc 31.8 g/dL (32.0-36.0); Mean Corpuscular Volume 85.9 fL (80.0-100.0); Mean Platelet Volume 10.1 fL (9.4-12.4); Platelet Count 342 K/uL (130-400); RDW Coefficient of Variation 15.9 % (11.5-14.5); RDW Standard Deviation 48.5 fL (36.4-46.3); Red Blood Count 4.18 M/uL (4.70-6.10); White Blood Count 8.75 K/ul (4.8-10.8)
[2023-08-29 07:23] LABS: BUN Creatinine Ratio 19.2 (10-20); Calcium 8.2 mg/dl (8.6-10.3); Creatinine Clr Calc Pharmacy 70.5 ml/min; Est GFR (African American) 94.1 ml/min; Est GFR (Non-African American) 81.2 ml/min; INR 1.7 (0.9-1.1); Potassium 3.6 mmol/L (3.5-5.1); Prothrombin Time 18.4 Seconds (9.0-12.0)
--- NOTE | 2023-08-29 10:08 | Hospitalist Progress Note ---
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 Per previous admission H&P incidental finding of multiple small peritoneal/omental nodules measuring up to 1.2 cm highly suspicious for metast atic process and peritoneal implants but per records patient had low-grade GI tumor tumor in the 2019 in [facility] and at that time did not want any further intervention and daughter wished to follow-up results with [place]. Acute Encephalopathy, Possible metabolic Patient was found on the ground by neighbors Has some expressive dysphasia from previous stroke. However, able to communicate with patient and understand simple conversation CT head unremarkable MRI unremarkable Carotid doppler unremarkable EEG no noted seizures Speech evaluation Telemetry- PT/OT- awaiting placement Atrial Flutter Atrial Fibrillation Rate controlled on metoprolol On Coumadin On 08/25, noted run of likely atrial fibrillation, pt in a flutter on 08/26 Cardiology consulted for further recs -metoprolol succinate dose titrated up, now increased to 50mg BID Subtherapeutic INR INR below goal of 2-3 on 08/24 Extra dose of warfarin 0.5mg given on 08/24 INR subtherapeutic at 1.7 today Currently on Lovenox-warfarin bridge for anticoagulation Monitor for signs of bleeding Sinusitis Noted on MRI brain Appears chronic Possible component of presenting symptoms? Augmentin BID x 5 days, completed course History of CVA Expressive aphasia/dysarthria On statin Mild elevation troponin Follow serial enzymes History of COPD Continue home inhalers Diabetes Currently on Lantus to 4 units nightly Sliding scale Will monitor Hypertension On metoprolol Hyperlipidemia On statin DVT prophylaxis: On Coumadin-lovenox bridge CODE STATUS full code Awaiting placement I spent a total of 45 minutes coordinating, documenting and providing care for this patient excluding time spent in performance of separately billed services Admission and Anticipated Discharge Date Admission Date: August 22, 2023 Subjective Patient seen and examined Reports mild right hip pain where he fell prior to admission Reports chronic dyspnea on exertion and hearing deficits. Reports stool is loose today Denied abd pain, hematochezia Denied dysuria, freq, hematuria Physical Exam Constitutional: + well hydrated; no acute distress Eyes: PERRL, conjunctivae normal, anicteric sclerae ENMT: +Hearing deficits Respiratory: normal respiratory effort, lungs clear to auscultation Cardiovascular: Rate/Rhythm: + irregularly irregular S1 S2 Gastrointestinal (Abdomen): normal bowel sounds, soft, nontender, no hepatosplenomegaly Musculoskeletal: No pedal edema Skin: Bruise over right hip Neurologic: PERRL, EOMI, accommodation nl, no face palsy, no dysarthria Psychiatric: A+Ox3, euthymic affect Results & Data Results & Data Vital Signs (Past 12 Hours) Vital Signs Temp Pulse Pulse Resp BP BP Pulse Ox 08/29/23 08:09 36.7 C 74 16 149/63 H 95 08/29/23 07:25 08/29/23 06:03 78 08/29/23 02:14 36.5 C 84 18 139/78 96 08/28/23 23:16 36.4 C L 52 L 20 155/71 H 97 O2 Del Method 08/29/23 08:09 Room Air 08/29/23 07:25 Room Air 08/29/23 06:03 08/29/23 02:14 Room Air 08/28/23 23:16 Room Air Laboratory Results Abnormal lab results 08/28/23 08/28/23 08/28/23 Range/Units 12:19 16:56 19:41 RBC (4.70-6.10) M/uL Hgb (14.0-18.0) g/dl Hct (42.0-52.0) % MCHC (32.0-36.0) g/dL RDW Std Deviation (36.4-46.3) fL RDW Coeff of Mainor (11.5-14.5) % PT (9.0-12.0) Seconds INR (0.9-1.1) POC Glucose 142 H 106 H 136 H (70-99) mg/dl Calcium (8.6-10.3) mg/dl 08/29/23 08/29/23 Range/Units 06:09 08:09 RBC 4.18 L (4.70-6.10) M/uL Hgb 11.4 L (14.0-18.0) g/dl Hct 35.9 L (42.0-52.0) % MCHC 31.8 L (32.0-36.0) g/dL RDW Std Deviation 48.5 H (36.4-46.3) fL RDW Coeff of Mainor 15.9 H (11.5-14.5) % PT 18.4 H (9.0-12.0) Seconds INR 1.7 H (0.9-1.1) POC Glucose 104 H (70-99) mg/dl Calcium 8.2 L (8.6-10.3) mg/dl
--- NOTE | 2023-08-29 12:14 | Pharmacy Report ---
Pharmacy Glycemic Short Note 2 - Date of Service August 29, 2023 - Glycemic Short BSG Results (Last 24 hours): 08/28/23 08/28/23 08/28/23 12:19 16:56 19:41 Glucose POC Glucose 142 H 106 H 136 H 08/29/23 08/29/23 08/29/23 06:09 08:09 12:03 Glucose 98 POC Glucose 104 H 131 H OUTPATIENT ANTIDIABETIC REGIMEN: * Lantus 8 units SC HS * Novolog per sliding scale * HbA1c = 7.5% (08/22/23) ASSESSMENT: 08/28 * Marvin received 16 units of insulin yesterday (4 were basal) * Fasting BSG this AM slightly below goal range, no adjustments to basal insulin at this time, but will continue to trend * No changes to Novolog, no glycemic stressors noted a this time. 08/26: * 18 units SQ given over last 24 hrs while tolerating diet * Fasting BSG 79-84 this AM with 5 units basal on board - will continue to tit rate basal dose down * Post-prandial BSGs well controlled with current CR/CF -will continue 08/25: * Received 24 units of insulin yesterday, 6 basal + 18 bolus. BSGs were: 503-47-532-205 mg/dL. * Fasting BSG was 92 mg/dL this AM. Will back off basal dose slightly. * CF and CR both tightened today to help control postprandials. 08/24: * Marvin received 14 units of insulin yesterday, 4 basal + 10 bolus. BSGs were: 882-047-57-189 mg/dL. * Fasting BSG was 144 mg/dL this AM. Will increase basal to 6 units tonight. * Lunchtime BSG trended down to 99 mg/dL today. Will loosen both CF/CR starting at dinner. PLAN FOR INPATIENT GLYCEMIC CONTROL: * Basal insulin * Lantus 4 units SC HS * Bolus insulin * NovoLog per scale ACHS or Q6hrs while NPO * Goal Range: Low 110 mg/dL - High 140 mg/dL * Correction Factor: 30 mg/dL/unit * Nutritional / Prandial insulin per carb ratio of 1 unit per 10 grams CHO consumed
[2023-08-30 06:12] LABS: Hematocrit (blood only) 33.4 % (42.0-52.0); Hemoglobin 10.9 g/dl (14.0-18.0); Mean Corpuscular Hemoglobin 27.4 pg (25.0-34.0); Mean Corpuscular Hgb Conc 32.6 g/dL (32.0-36.0); Mean Corpuscular Volume 83.9 fL (80.0-100.0); Mean Platelet Volume 9.7 fL (9.4-12.4); Platelet Count 290 K/uL (130-400); RDW Standard Deviation 47.9 fL (36.4-46.3); Red Blood Count 3.98 M/uL (4.70-6.10); White Blood Count 13.63 K/ul (4.8-10.8)
[2023-08-30 06:28] LABS: BUN Creatinine Ratio 16.9 (10-20); Calcium 8.2 mg/dl (8.6-10.3); Creatinine Clr Calc Pharmacy 65.3 ml/min; Est GFR (African American) 91.7 ml/min; Est GFR (Non-African American) 79.1 ml/min; Magnesium 1.7 mg/dl (1.7-2.4); Phosphorus 2.7 mg/dl (2.5-4.9); Potassium 3.7 mmol/L (3.5-5.1)
[2023-08-30 06:36] LABS: INR 1.9 (0.9-1.1); Prothrombin Time 20.3 Seconds (9.0-12.0)
--- NOTE | 2023-08-30 12:10 | Discharge Summary ---
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 CT head is okay. Patient is very difficult to understand. He can tell his name. Asking if everything is okay and asking about his imaging studies. States he fell. But could not elaborate. Denies any chest pain. Denies abdominal pain. States has mild headache. No nausea Difficult to understand him and difficult to get history from patient. Tried to call his daughter but could not reach her. Currently we do not know his exact baseline. But seems he lives alone.Per previous admission H&P incidental finding of multiple small peritoneal/omental nodules measuring up to 1.2 cm highly suspicious for metastatic process and peritoneal implants but per records patient had low-grade GI tumor tumor in the 2019 in [facility] and at that time did not want any further intervention and daughter wished to follow-up results with [place] Past medical's. As mentioned above and gout, BPH, history of stomach cancer in 2018. Hearing deficit. Past surgical history. EGD. Appendectomy. History of abdominal surgery and removal of stomach cancer mass. History of tooth extraction. Nasal polypectomy. Bilateral cataract extraction. History of posterior surgery. History of PEG tube placement. History of gastric restrictive surgery. Family history significant for diabetes. Social history. As per records no smoking. No alcohol abuse, no drug use. Admission Exam Per Admitting Provider General- alert and awake. Not in distress Head- atraumatic Eyes- PERRL. ENT- oropharynx clear Neck- supple, no JVD. Lungs- clear to auscultation no wheezing or crackles. Heart- regular rhythm; no murmur, no gallop,. Abdomen- normal bowel sounds, soft, nontender, no distension Extremities- no pretibial edema, no erythema seen Neuro- alert, oriented x 1 PERRL, no facial palsy; expressive aphasia; motor 1- 2/5 bilaterally; obeys simple commands. difficult to do complte exam as patient having difficulty understanding Skin- warm & dry Principal Diagnosis Fall Encephalopathy Afib Discharge Exam Constitutional + well hydrated; no acute distress Eyes PERRL, conjunctivae normal, anicteric sclerae ENMT external ear and nose normal, oropharynx normal Respiratory normal respiratory effort, lungs clear to auscultation Cardiovascular Rate/Rhythm: + irregularly irregular S1 S2 Gastrointestinal (Abdomen) normal bowel sounds, soft, nontender, no hepatosplenomegaly Musculoskeletal No pedal edema Neurologic PERRL, EOMI, accommodation nl, no face palsy, no dysarthria Psychiatric A+Ox3, euthymic affect Discharge Data Allergies Allergy/AdvReac Type Severity Reaction Status Date / Time No Known Allergies Allergy Verified 08/22/23 01:44 Consultations 08/22/23 02:30 ED Decision to Admit Stat 08/26/23 14:19 Consult Cardiology Routine Ordered Studies 08/22/23 00:53 CT cervical spine wo con Stat CT head/brain wo con Stat 08/22/23 05:26 MRI Brain [MR brain wo/w con] Urgent 08/23/23 08:00 US carotid doppler BI Routine Hospital Course (1) Confusion: 87-year-old male with past medical history significant for paroxysmal atrial fibrillation on Coumadin, 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 Per previous admission H&P incidental finding of multiple small peritoneal/omental nodules measuring up to 1.2 cm highly suspicious for metastatic process and peritoneal implants but per records patient had low-grade GI tumor tumor in the 2019 in [facility] and at that time did not want any further intervention and daughter wished to follow-up results with [place]. Acute Encephalopathy, Possible metabolic Patient was found on the ground by neighbors Has some expressive dysphasia from previous stroke. However, able to communicate with patient and understand simple conversation CT head unremarkable MRI unremarkable Carotid doppler unremarkable EEG no noted seizures Speech evaluation Atrial Flutter Atrial Fibrillation Has RVR inpatient, now rate controlled with increased toprol dose Cardiology evaluated while inpatient -metoprolol succinate dose titrated up, now increased to 50mg BID To follow up with his [facility] outpatient Subtherapeutic INR INR below goal of 2-3 Was managed with Warfarin lovenox bridge INR is trending up to 1.9 today Discharged on home warfarin Follow up anticoagulation clinic Sinusitis Noted on MRI brain Appears chronic Possible component of presenting symptoms? Augmentin BID x 5 days, completed course History of CVA Expressive aphasia/dysarthria On statin Mild elevation troponin Follow serial enzymes History of COPD Continue home inhalers Diabetes Based on blood glucose trend inpatient, home lantus was reduced to 4U Continue sliding scale novolog Hypertension On metoprolol Hyperlipidemia On statin Total Time Total Time Spent Total Time Spent (In Minutes): 35 Discharge Plan Discharge Items Patient Disposition: Transfer Inpatient Rehab Fac Reason For Visit: FALL, CONFUSION Discharge Diagnosis: Fall Encephalopathy Afib Activity: As commented below Non-emergency contact: Primary Care Provider Call non-emergency contact if: you have any medication questions and your symptoms worsen Follow-up/Referrals: Tamie Portillo PA-C [Primary Care Provider] - Diet: Carb Consistent or DM2 and Heart Healthy Addtl Attending Provider Instructions: Mr Adams You were brought to the hospital for fall and confusion. You were treated and being discharged to nursing facility for rehab. Your metoprolol succinate was increased to 50mg twice a day for better rate control. Please ensure follow up with your [facility] and Family Doctor. It was a pleasure taking care of you. Pending Studies at Discharge: No Stand-Alone Forms: My [facility] Skilled Items Patient informed of condition?: Yes DNR: No Discharge Level of Care: Acute rehab Communicable Disease: No Discharge Prognosis: Stable Lines: None Urinary Catheter: No Medications and DC Order Prescriptions: New acetaminophen [Tylenol Extra Strength] 500 mg Tablet 1,000 mg PO Q8H PRN (Reason: pain) Qty: 30 0RF Continued fluticasone propion-salmeterol [Wixela Inhub] 250-50 mcg/dose blister with device 1 inh inhalation BID Qty: 30 0RF atorvastatin 20 mg Tablet 10 mg PO QAM Qty: 30 0RF warfarin 2.5 mg Tablet 2.5 mg PO QPM Qty: 30 0RF Rx Instructions: as direcred by anticoagulation clinic fluticasone propionate 50 mcg/actuation [place],Suspension 2 spray NA DAILY Qty: 16 0RF insulin aspart U-100 [Novolog PenFill U-100 Insulin] 100 unit/mL Cartridge 1 sliding scale dose SUBCUT USEASDIRECTD Qty: 15 0RF guaifenesin [Mucinex] 600 mg Tablet Extended Release 12hr 600 mg PO Q12H PRN (Reason: cough) Qty: 10 0RF Changed sennosides 8.6 mg tablet 17.2 mg PO DAILY PRN (Reason: Constipation) Qty: 30 0RF metoprolol succinate 25 mg tablet extended release 24 hr 50 mg PO BID Qty: 120 0RF insulin glargine [Lantus Solostar U-100 Insulin] 100 unit/mL (3 mL) insulin pen 4 unit SC HS Qty: 15 0RF Discharge Orders: Discharge Order (Routine); Ordered 08/30/23 Ordered By: Maite Santa/Other Patient Handouts: Managing Type 2 Diabetes Admission Data Admit Date/Time: 08/22/23 04:12 Attending Provider: Maite Fagan I. Admit Provider: Raymond Calzada Primary Care Provider: Tamie Portillo Other Providers: [facility]; [facility]; Raymond Calzada; Darrel Rutledge; Leslee [place]; [facility],
--- NOTE | 2023-08-30 22:34 | Electrocardiogram Report ---
Test Reason : Blood Pressure : / mmHG Vent. Rate : 082 BPM Atrial Rate : 082 BPM P-R Int : 292 ms QRS Dur : 082 ms QT Int : 382 ms P-R-T Axes : 086 061 053 degrees QTc Int : 446 ms Poor data quality, interpretation may be adversely affected Sinus rhythm with 1st degree A-V block with Premature ventricular complexes or Fusion complexes Inferior infarct , age undetermined Abnormal ECG When compared with ECG of 22-AUG-2023 00:50, Nonspecific T wave abnormality, improved in Inferior leads Premature ventricular complexes are now Present Confirmed by Darrel Rutledge ([id number]) on 08/30/2023 10:34:09 PM Referred By: REFERRED SELF Confirmed By:Darrel Rutledge
== END 2023-08-30 14:00 | DRG 71 ==
LOC: ED 00:43 → SUATTDRO 04:12 → EDINP 04:12 → 2S 08-23 05:48 → 2N 08-26 22:58